=== PATIENT | female | born 1970 | race Caucasian/White ===

== ENCOUNTER 2017-07-26 15:16 | Emergency (ER) | payer SELFPAY ==
[2017-07-26 16:20] LABS: Bicarbonate 24 mEq/L (21-31); Glucose Level 94 mg/dL (65-120); Potassium 4.1 mEq/L (3.6-5.0); Sodium Level 139 mEq/L (135-145)
[2017-07-26 16:26] LABS: ALT/SGPT 96 IU/L (10-60); AST/SGOT 116 IU/L (10-42); Albumin 3.6 g/dL (3.2-5.5); Alkaline Phosphatase 68 IU/L (42-121); BUN Blood Urea Nitrogen 20 mg/dL (6-20); Bilirubin Direct 0.1 mg/dL (0-0.2); Bilirubin Total 0.6 mg/dL (0.3-1.2); Glomerular Filtration Rate 69 mL/min (=/>90); Protein, Total 6.5 g/dL (6.0-8.3)
--- NOTE | 2017-07-26 16:27 | RAD REPORT ---
EXAM DESCRIPTION: Mirian Single View07/26/2017 3:56 pm CLINICAL HISTORY: Seizure COMPARISON: 2016 FINDINGS: Mild left basilar lung opacities are present. The right lung appears clear. The heart is normal size IMPRESSION: Mild left basilar opacities may represent atelectasis or infiltrate
[2017-07-26 16:30] LABS: Alcohol Serum/Plasma < 10 mg/dl; Salicylates Level < 4.0 mg/dl (<30)
[2017-07-26 16:39] LABS: Absolute Lymphocytes (CBC) 1.1 K/uL (0.7-4.9); Absolute Monocytes 0.4 K/uL (0.1-1.3); Absolute Neutrophil 4.1 K/uL (1.8-8.0); Basophils % 0.4 % (0-1.3); Eosinophils % 2.8 % (0-4.4); Hematocrit 45.3 % (36.0-45.0); Lymphocytes % 19.3 % (15.3-44.8); MCH 35.1 pg (27.0-35.0); MCV 107.1 fL (80-100); MPV 9.7 fL (7.6-11.3); Monocytes % 7.2 % (3.3-12.3); RBC Red Blood Cell Count 4.23 M/uL (3.86-4.86)
[2017-07-26 17:00] LABS: Protime INR 0.89
[2017-07-26] MEDS ORDERED: AZITHROMYCIN 250 MG TAB ONE (17:47)
[2017-07-26] MEDS ORDERED: CEFTRIAXONE/SWI 1gm 1 GM/10 ML SYR ONE (17:48)
[2017-07-26 17:58] LABS: Blood Morphology Comment NOTED (NOT SEEN); Macrocytosis 1+; Platelet Estimate ADEQ; Polychromasia SLIGHT; Urine White Blood Cell Casts OK
--- NOTE | 2017-07-26 19:07 | ER ---
Nurse's Notes [facility] Name: Raiza Ponce Age: 46 yrs Sex: Female : 1970 Arrival Date: 07/26/2017 Time: 15:20 Bed 2 Private MD: Diagnosis: Pneumonia, unspecified organism;Pts unintentional overdose of medication - Seroquel Presentation: 07/26 15:21 Presenting complaint: EMS states: witnessed fall on the bus stop and per report pt had hj episode of seizure; pt was unresponsive for unknown time period; intiall BP was 66/51; 88% on RA; HR between 60-96; O2 sat on RB, 96%; BG- 105; arousable to painful stimuli on arrival;. Transition of care: patient was not received from another setting of care. Onset of symptoms was July 26, 2017. Care prior to arrival: None. 15:21 Method Of Arrival: Ambulatory 15:21 Acuity: PATRIZIA 3 hj Historical: - Allergies: 18:09 No Known Allergies; sv - PMHx: 16:51 Diabetes - IDDM; Endometrosis; Myocardial infarction; ss - PSHx: 16:51 Tubal ligation; heart cath; ss - Immunization history:: Adult Immunizations unknown. - Social history:: Smoking status: unknown. Screenin:51 Abuse screen: Denies threats or abuse. Denies injuries from another. Nutritional ss screening: No deficits noted. Tuberculosis screening: Never had TB. Fall Risk No fall in past 12 months (0 pts). Secondary diagnosis (15 points) generalized weakness . IV access (20 points). Ambulatory Aid- None/Bed Rest/Nurse Assist (0 pts). Gait- Normal/Bed Rest/Wheelchair (0 pts) Mental Status- Oriented to own ability (0 pts). Assessment: 15:20 General: Appears comfortable, lethargic. Behavior is calm, Pt reports she had taken ss Seroquel 20 mg tablets x 4 today. When asked if patient had taken them to hurt herself, she reported no, and that she didn't know why she took them. . Pain: Denies pain. Neuro: Level of Consciousness is obeys commands, lethargic, Oriented to person, place, time, Facial symmetry appears normal, Pupils are PERRLA. Cardiovascular: Capillary refill is sluggish in bilateral fingers. Respiratory: Airway is patent Respiratory effort is even, unlabored, shallow, Respiratory pattern is regular, symmetrical, Breath sounds are clear bilaterally. GI: Patient currently denies abdominal pain, diarrhea, nausea, vomiting. : No signs and/or symptoms were reported regarding the genitourinary system. EENT: Nares are clear Oral mucosa is moist. Throat is clear is pink. Derm: Skin is intact, is healthy with good turgor, Skin is clammy, Skin is pink, warm \T\ dry. normal, Skin temperature is cool. Musculoskeletal: Circulation, motion, and sensation intact. Capillary refill < 3 seconds, is brisk, in bilateral fingers. Range of motion: intact in all extremities, Swelling absent. 15:51 Reassessment: lab at bedside to obtain lab samples. Pt is awake and becoming ss increasingly alert. 19:00 Reassessment: RECD REPORT FROM VALERIA MCGILL. 46YO WF P/W NEAR-SYNCOPE AFTER bp RECREATIONAL OVERDOSE OF SEROQUEL. D/C ON HOLD PENDING IVF COMPLETION. PT AO4, VS STABLE ON MONITOR. 19:23 Reassessment: Patient and/or family updated on plan of care and expected duration. Pain ea level reassessed. Patient is alert, oriented x 3, equal unlabored respirations, skin warm/dry/pink. Pt refused NS bolus. 20:00 Reassessment: PT D/C HOME WITH ASSOCIATE, PT DECLINING FURTHER MEDICAL TREATMENT AND bp D/C PAPERS, LEFT FACILITY IN HOSPITAL ATTIRE. VS STABLE, AO4, NO ATAXIA OR DIZZINESS. Vital Signs: 15:20 BP 86 / 62; Pulse 87; Resp 14; Pulse Ox 95% on R/A; Pain 0/10; ss 15:51 BP 94 / 69; Pulse 79; Resp 16; Temp 97.6(TE); Pulse Ox 97% on R/A; Pain 0/10; ss 16:30 BP 103 / 74; Pulse 76; Resp 16; Pulse Ox 96% ; sv 17:00 BP 100 / 68; Pulse 74; Resp 16; Pulse Ox 96% ; sv 17:05 BP 102 / 70; Pulse 76; Resp 17; Pulse Ox 100% on R/A; bm6 17:30 BP 100 / 70; Pulse 76; Resp 18; Pulse Ox 100% ; sv 18:03 BP 101 / 74; Pulse 77; Resp 18; Pulse Ox 100% on R/A; sv 19:00 BP 120 / 81; Pulse 74; Resp 16; Pulse Ox 95% ; bp 20:00 BP 121 / 78; Pulse 70; Resp 16; Pulse Ox 98% ; bp ED Course: 15:20 Patient arrived in ED. ms 15:20 Arm band placed on right wrist. ss 15:23 Elsa Smith, [facility] is PHCP. snw 15:23 Vandana Francis MD is Attending Physician. snw 15:25 Triage completed. hj 15:51 Patient has correct armband on for positive identification. Bed in low position. Call ss light in reach. Side rails up X2. cardiac monitor on. Pulse ox on. NIBP on. 16:00 Placed in gown. Warm blanket given. mh5 16:00 Initial lab(s) drawn, by rags laborer, sent to lab. Inserted saline lock: 22 gauge in left mh5 antecubital area, using aseptic technique. 17:38 Valeria Borrego RN is Primary Nurse. sv 19:23 Primary Nurse role handed off by Valeria Borrego RN sv 20:00 No provider procedures requiring assistance completed. IV discontinued, intact, bp bleeding controlled, No redness/swelling at site. Pressure dressing applied. Administered Medications: 15:44 Drug: NS 0.9% 1000 ml Route: IV; Rate: 125 ml/hr; Site: right antecubital; ss 20:20 Follow up: IV Status: Completed infusion bp 17:38 Drug: Rocephin - (cefTRIAXone) 1 grams Route: IVPB; Infused Over: 30 mins; Site: right sv antecubital; 17:42 Follow up: Response: No adverse reaction; IV Status: Completed infusion; IV Intake: sv 10ml ; given IVP as per pharmacy requirements. 17:38 Drug: Zithromax 500 mg Route: PO; sv 18:43 Follow up: Response: No adverse reaction sv 19:15 Not Given (Patient Refused): NS 0.9% 1000 ml IV at 1 bolus Per protocol; 1000 mL bolus ea Intake: 17:42 IV: 10ml; Total: 10ml. sv Outcome: 19:05 Discharge ordered by . snw 20:21 Patient left the ED. bp Signatures: Valeria Borrego RN RN Elsa Smith FNP-C [facility] Grace Schwartz ms, Shelby, RN RN ss Dominik Villalobos, RN RN Jonny Earl [facility] Grace Ha [facility] Luba Welsh, RN RN ea Dilip Alfredo, RN RN bp
--- NOTE | 2017-07-26 19:07 | EDPHYS ---
Physician Documentation [facility] Name: Raiza Ponce Age: 46 yrs Sex: Female : 1970 Arrival Date: 07/26/2017 Time: 15:20 Bed 2 Private MD: ED Physician Vandana Francis HPI: 07/26 15:29 This 46 yrs old Female presents to ER via Ambulatory with complaints of AMS. snw 15:29 The patient presents with decreased responsiveness. Onset: The symptoms/episode snw began/occurred suddenly, just prior to arrival. Possible causes: unknown. Associated signs and symptoms: The patient has no apparent associated signs or symptoms. Patient's baseline: Neuro: orientated to person. It is unknown whether or not the patient has had similar symptoms in the past. It is unknown whether or not the patient has recently seen a physician. took unknown number of Seroquel. Historical: - Allergies: 18:09 No Known Allergies; sv - PMHx: 16:51 Diabetes - IDDM; Endometrosis; Myocardial infarction; ss - PSHx: 16:51 Tubal ligation; heart cath; ss - Immunization history:: Adult Immunizations unknown. - Social history:: Smoking status: unknown. ROS: 15:28 Constitutional: Negative for fever, chills, and weight loss, + AMS, found unresponsive snw in front of [employer] Eyes: Negative for injury, pain, redness, and discharge, ENT: Negative for injury, pain, and discharge, Neck: Negative for injury, pain, and swelling, Cardiovascular: Negative for chest pain, palpitations, and edema, Respiratory: Negative for shortness of breath, cough, wheezing, and pleuritic chest pain, Abdomen/GI: Negative for abdominal pain, nausea, vomiting, diarrhea, and constipation, Back: Negative for injury and pain, : Negative for injury, bleeding, discharge, and swelling, MS/Extremity: Negative for injury and deformity, Skin: Negative for injury, rash, and discoloration, Neuro: Negative for headache, weakness, numbness, tingling, and seizure. Exam: 15:27 Constitutional: This is a well developed, well nourished patient who is awake, alert, snw and in no acute distress. Head/Face: Normocephalic, atraumatic. Eyes: Pupils equal round and reactive to light, extra-ocular motions intact. Lids and lashes normal. Conjunctiva and sclera are non-icteric and not injected. Cornea within normal limits. Periorbital areas with no swelling, redness, or edema. ENT: Nares patent. No nasal discharge, no septal abnormalities noted. Tympanic membranes are normal and external auditory canals are clear. Oropharynx with no redness, swelling, or masses, exudates, or evidence of obstruction, uvula midline. Mucous membranes moist. Neck: Trachea midline, no thyromegaly or masses palpated, and no cervical lymphadenopathy. Supple, full range of motion without nuchal rigidity, or vertebral point tenderness. No Meningismus. Chest/axilla: Normal chest wall appearance and motion. Nontender with no deformity. No lesions are appreciated. Cardiovascular: Regular rate and rhythm with a normal S1 and S2. No gallops, murmurs, or rubs. Normal PMI, no JVD. No pulse deficits. Respiratory: Lungs have equal breath sounds bilaterally, clear to auscultation and percussion. No rales, rhonchi or wheezes noted. No increased work of breathing, no retractions or nasal flaring. Abdomen/GI: Soft, non-tender, with normal bowel sounds. No distension or tympany. No guarding or rebound. No evidence of tenderness throughout. Back: No spinal tenderness. No costovertebral tenderness. Full range of motion. Skin: Warm, dry with normal turgor. Normal color with no rashes, no lesions, and no evidence of cellulitis. MS/ Extremity: Pulses equal, no cyanosis. Neurovascular intact. Full, normal range of motion. 15:27 Neuro: Orientation: to person, Mentation: responsive to voice Memory: unable to test. 15:27 Psych: took 4 Seroquel, unknown reason. Vital Signs: 15:20 BP 86 / 62; Pulse 87; Resp 14; Pulse Ox 95% on R/A; Pain 0/10; ss 15:51 BP 94 / 69; Pulse 79; Resp 16; Temp 97.6(TE); Pulse Ox 97% on R/A; Pain 0/10; ss 16:30 BP 103 / 74; Pulse 76; Resp 16; Pulse Ox 96% ; sv 17:00 BP 100 / 68; Pulse 74; Resp 16; Pulse Ox 96% ; sv 17:05 BP 102 / 70; Pulse 76; Resp 17; Pulse Ox 100% on R/A; bm6 17:30 BP 100 / 70; Pulse 76; Resp 18; Pulse Ox 100% ; sv 18:03 BP 101 / 74; Pulse 77; Resp 18; Pulse Ox 100% on R/A; sv 19:00 BP 120 / 81; Pulse 74; Resp 16; Pulse Ox 95% ; bp 20:00 BP 121 / 78; Pulse 70; Resp 16; Pulse Ox 98% ; bp MDM: 15:30 Patient medically screened. snw 19:06 Data reviewed: vital signs, nurses notes. Data interpreted: Pulse oximetry: on room air snw is 100 %. Interpretation: normal. Counseling: I had a detailed discussion with the patient and/or guardian regarding: the historical points, exam findings, and any diagnostic results supporting the discharge/admit diagnosis, lab results, radiology results, the need for outpatient follow up, to return to the emergency department if symptoms worsen or persist or if there are any questions or concerns that arise at home. Special discussion: Based on the history and exam findings, there is no indication for further emergent testing or inpatient evaluation. I discussed with the patient/guardian the need to see the primary care provider for further evaluation of the symptoms. I discussed with the patient/guardian the need to see the psychiatrist for further evaluation of the symptoms. 07/26 15:24 Order name: Acetaminophen [facility] 07/26 15:24 Order name: BMP [facility] 07/26 15:24 Order name: CBC with Diff 07/26 15:24 Order name: Ethanol [facility] 07/26 15:24 Order name: Hepatic Function [facility] 07/26 15:24 Order name: Protime (+inr) [facility] 07/26 15:24 Order name: Ptt, Activated [facility] 07/26 15:24 Order name: Salicylate [facility] 07/26 15:24 Order name: Urine Drug Screen [facility] 07/26 16:20 Order name: Basic Metabolic Panel; Complete Time: 16:34 EDMS 07/26 16:31 Order name: Liver (Hepatic) Function; Complete Time: 16:34 EDMS 07/26 16:31 Order name: Acetaminophen Level; Complete Time: 16:34 EDMS 07/26 16:31 Order name: Alcohol Serum/Plasma; Complete Time: 16:34 EDMS 07/26 16:31 Order name: Salicylates Level; Complete Time: 16:34 EDMS 07/26 15:24 Order name: Cardiac monitoring; Complete Time: 15:45 snw 07/26 15:24 Order name: EKG; Complete Time: 15:26 snw 07/26 15:24 Order name: EKG - Nurse/Tech; Complete Time: 15:45 snw 07/26 15:24 Order name: IV Saline Lock; Complete Time: 15:28 snw 07/26 15:24 Order name: Labs collected and sent; Complete Time: 18:10 snw 07/26 15:24 Order name: O2 Per Protocol; Complete Time: 15:28 snw 07/26 15:32 Order name: Chest Single View XRAY snw 07/26 16:27 Order name: RAD; Complete Time: 16:34 EDMS 07/26 16:43 Order name: CBC with Automated Diff; Complete Time: 17:59 EDMS 07/26 17:01 Order name: Protime (+INR); Complete Time: 17:02 EDMS 07/26 17:01 Order name: PTT, Activated Partial Thromb; Complete Time: 17:02 EDMS 07/26 17:59 Order name: CBC Smear Scan; Complete Time: 17:59 EDMS 07/26 15:24 Order name: O2 Sat Monitoring; Complete Time: 15:28 snw Administered Medications: 15:44 Drug: NS 0.9% 1000 ml Route: IV; Rate: 125 ml/hr; Site: right antecubital; ss 20:20 Follow up: IV Status: Completed infusion bp 17:38 Drug: Rocephin - (cefTRIAXone) 1 grams Route: IVPB; Infused Over: 30 mins; Site: right sv antecubital; 17:42 Follow up: Response: No adverse reaction; IV Status: Completed infusion; IV Intake: sv 10ml ; given IVP as per pharmacy requirements. 17:38 Drug: Zithromax 500 mg Route: PO; sv 18:43 Follow up: Response: No adverse reaction sv 19:15 Not Given (Patient Refused): NS 0.9% 1000 ml IV at 1 bolus Per protocol; 1000 mL bolus ea Disposition: 18:01 Co-signature as Attending Physician, Vandana Francis MD. ma2 Disposition: 07/26/17 19:05 Discharged to Home. Impression: Pneumonia, unspecified organism, Pts unintentional overdose of medication - Seroquel. - Condition is Stable. - Discharge Instructions: Hypoglycemia, Pneumonia, Adult, Syncope. - Medication Reconciliation Form, Thank You Letter, Antibiotic Education, Prescription Opioid Use form. - Follow up: Private Physician; When: 2 - 3 days; Reason: Recheck today's complaints, Continuance of care, Re-evaluation by your physician. Follow up: Emergency Department; When: As needed; Reason: Worsening of condition. Signatures: Dispatcher [employer] Valeria Kirby, RN RN sv Elsa Smith, [facility] Tabitha Wilhelm RN RN ss Dilip Alfredo RN RN Vandana Hooker MD MD ma2 Luba Welsh RN, ea
[2017-07-26] MEDS ORDERED: NA CHLORIDE 0.9% 0 ML ONE (19:32)
[2017-07-26 20:39] VITALS: TEMP 97.6
[2017-07-26 20:47] VITALS: BP 121/78; O2SAT 98
--- NOTE | 2017-07-27 06:36 | EKG ---
Test Date: 2017-07-26 Test Time: 15:25:25 Rebeamer: VIANEY MEASUREMENT RESULTS: Intervals: Rate: 82 MT: 194 QRSD: 120 QT: 402 QTc: 469 [place]: P: 30 MT: 194 QRS: -50 T: 29 INTERPRETIVE STATEMENTS: Normal sinus rhythm Left axis deviation Nonspecific intraventricular conduction delay Abnormal ECG Compared to ECG 01/05/2016 00:12:33 Intraventricular conduction delay now present Myocardial infarct finding no longer present Electronically Signed On 07-27-17 06:34:48 CDT by Saurav Marquez
== END 2017-07-26 20:21 | disposition home or self-care (01) ==
LOC: ER 15:16
DX: J18.9 Pneumonia, unspecified organism (principal); T43.591A Poisoning by other antipsychotics and neuroleptics, accidental (unintentional), initial encounter; Y92.89 Other specified places as the place of occurrence of the external cause; I25.2 Old myocardial infarction
CPT/HCPCS: 36415; 71045; 80048; 80076; 80320; 80329; 85025; 85610; 85730; 93005; 96361; 96374; 99284; J0696; J7030

== ENCOUNTER 2017-08-13 09:01 | Inpatient (IN) | payer SELFPAY ==
[2017-08-13] MEDS ORDERED: PIPER/TAZO/NS 3.375gm 3.375 GM/100 ML BAG IVPB ONE (09:45)
[2017-08-13] MEDS ORDERED: MIDAZOLAM HCL 100 MG/NS 100 ML IV PRN ×2 (09:46)
[2017-08-13 09:47] LABS: Potassium 3.8 mEq/L (3.6-5.0)
--- NOTE | 2017-08-13 09:48 | EDPHYS ---
Physician Documentation [facility] Name: Raiza Whaley Age: 46 yrs Sex: Female : 1970 Arrival Date: 08/13/2017 Time: 08:58 Bed External Waiting Private MD: ED Physician Bhupinder Cortez HPI: 08/13 09:19 This 46 yrs old Female presents to ER via EMS with complaints of CPR. hiren 09:19 Preceding the arrest, the patient collapsed. The arrest occurred at home. Pre-hospital hrien course: The arrest was not witnessed by others. The patient has not experienced similar symptoms in the past. 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 - Family history:: not pertinent. - Social history:: Smoking status: unknown. ROS: 09:19 Constitutional: hiren 09:19 Unable to obtain ROS due to obtunded state. 10:18 Constitutional: Negative for fever, chills, and weight loss. hiren Exam: 09:19 Neck: Trachea midline, no thyromegaly or masses palpated, and no cervical hiren lymphadenopathy. Supple, full range of motion without nuchal rigidity, or vertebral point tenderness. No Meningismus. Back: No spinal tenderness. No costovertebral tenderness. Full range of motion. MS/ Extremity: Pulses equal, no cyanosis. Neurovascular intact. Full, normal range of motion. 09:19 Constitutional: The patient appears comatose. 09:19 Head/face: 09:19 Eyes: Pupils: constricted, bilaterally. 09:19 Chest/axilla: Exam negative for 09:19 Cardiovascular: Rate: actual rate is 0 bpm, Rhythm: asystole, Pulses: not palpable, Heart sounds: none, Edema: is not appreciated, JVD: is not appreciated. Vital Signs: 08:59 BP 0 / 0; Pulse Ox 97% ; ch 09:03 BP 102 / 68; Pulse 146; Resp 16 A; Temp 97.3(C); Pulse Ox 99% on R/A; Pain 0/10; ch 09:15 BP 111 / 73; Pulse 162; Resp 16 A; Pulse Ox 100% on ETT ambu; Weight 72.57 kg; Height 5 ch ft. 4 in. (162.56 cm); Pain 0/10; 09:23 BP 97 / 71; Pulse 112; Resp 14; Pulse Ox 100% on ETT vent; Pain 0/10; ch 10:00 BP 105 / 53; Pulse 98; Resp 16; Pulse Ox 99% on ETT vent; ch 10:35 BP 113 / 72; Pulse 112; Resp 16; Temp 96.8; Pulse Ox 100% ; ch 11:01 BP 110 / 80; Pulse 94; Resp 20; Temp 96.1(C); Pulse Ox 100% on R/A; Pain 0/10; ch 11:19 BP 101 / 87; Pulse 95; Resp 20; Temp 96.3(C); Pulse Ox 99% on ETT vent; Pain 0/10; ch 11:47 BP 96 / 67; Pulse 98; Resp 20; ch 09:15 Body Mass Index 27.46 (72.57 kg, 162.56 cm) 08:59 cpr in progress, pt being bagged ch 10:35 pt placed under bear hugger ch 11:01 pt is under bear hugger. bear hugger temp increased ch Procedures: 15:24 Central Line: the site was prepped with Betadine, in sterile fashion, a triple lumen [facility] catheter was inserted, in the right in 1 attempts. placement was verified, by blood return, the site was dressed with using sterile technique, the patient tolerated the procedure, well. 15:24 Intubation: Ventilated with 100% NRB prior to procedure. Intubated orally using # 3 hiren Daniela blade with 7.5 mm ETT. was successful on first attempt. Tube secured at right side of mouth Placement verified by CXR, CO2 detector with (+) color change, auscultating bilateral breath sounds, O2 saturation after procedure was 100 %. Patient tolerated well. MDM: 09:16 Patient medically screened. [facility] 09:23 Data reviewed: vital signs, nurses notes, lab test result(s), EKG, radiologic studies, [facility] CT scan, plain films. 08/13 09:13 Order name: Basic Metabolic Panel; Complete Time: 10:06 08/13 09:13 Order name: BNP; Complete Time: 09:59 08/13 09:13 Order name: CBC with Diff 08/13 09:13 Order name: Ckmb; Complete Time: 10:06 ch 08/13 09:13 Order name: CPK; Complete Time: 10:06 ch 08/13 09:13 Order name: LFT's; Complete Time: 10:06 ch 08/13 09:13 Order name: Magnesium; Complete Time: 10:06 ch 08/13 09:13 Order name: PT-INR; Complete Time: 11:05 ch 08/13 09:13 Order name: Ptt, Activated; Complete Time: 11:05 ch 08/13 09:13 Order name: Troponin (emerg Dept Use Only); Complete Time: 09:59 ch 08/13 09:13 Order name: Lactate 08/13 09:13 Order name: ABG; Complete Time: 10:35 ch 08/13 09:14 Order name: Lactate; Complete Time: 10:06 EDMS 08/13 09:13 Order name: XRAY Chest (1 view) 08/13 09:19 Order name: Lipase [facility] 08/13 09:19 Order name: CT Head C Spine; Complete Time: 10:35 [facility] 08/13 09:19 Order name: Lipase; Complete Time: 11:05 EDMS 08/13 09:30 Order name: Blood Culture EDSC 08/13 09:46 Order name: Urine Drug Screen; Complete Time: 10:35 hj 08/13 09:52 Order name: Urine Dipstick--Ancillary (enter results); Complete Time: 11:05 bd 08/13 09:52 Order name: Urine --Ancillary (enter results); Complete Time: 11:05 bd 08/13 10:07 Order name: Acetaminophen [facility] 08/13 10:07 Order name: ETOH Level [facility] 08/13 10:07 Order name: Salicylate [facility] 08/13 11:43 Order name: Blood Culture EDSC 08/13 11:57 Order name: Manual Differential EDSC 08/13 12:41 Order name: Hemoglobin A1C EDSC 08/13 15:20 Order name: ABG Arterial Blood Gas EDSC 08/13 09:13 Order name: Urine Test (obtain specimen); Complete Time: 09:40 ch 08/13 09:13 Order name: EKG; Complete Time: 09:14 ch 08/13 09:13 Order name: Cardiac monitoring; Complete Time: 09:26 ch 08/13 09:13 Order name: EKG - Nurse/Tech; Complete Time: 09:26 ch 08/13 09:13 Order name: IV Saline Lock; Complete Time: 09:40 ch 08/13 09:13 Order name: Labs collected and sent; Complete Time: 09:26 ch 08/13 09:13 Order name: O2 Per Protocol; Complete Time: 09:26 ch 08/13 09:13 Order name: O2 Sat Monitoring; Complete Time: 09:26 ch 08/13 09:13 Order name: Urine Dipstick-Ancillary (obtain specimen); Complete Time: 09:40 ch 08/13 09:19 Order name: [place]; Complete Time: 09:29 hiren 08/13 09:39 Order name: NG Tube; Complete Time: 09:46 hiren 08/13 10:05 Order name: CONS Physician Consult EDSC 08/13 10:35 Order name: EKG; Complete Time: 10:36 bd 08/13 09:40 Order name: Labs - recollect needed; Complete Time: 10:30 bd Administered Medications: 09:00 Drug: EPINEPHrine 0.1mg/mL 1:10,000 1 mg Route: IVP; Site: left antecubital; ch 11:54 Follow up: Response: No adverse reaction; Marked relief of symptoms ch 09:00 Drug: Sodium Bicarbonate 1 amp Route: IVP; Site: left antecubital; iw 10:30 Follow up: Response: No adverse reaction; Marked relief of symptoms ch 09:02 Drug: Sodium Bicarbonate 1 amp Route: IVP; Site: left antecubital; ch 11:53 Follow up: Response: No adverse reaction; Marked relief of symptoms ch 09:03 Drug: Calcium Chloride 1 grams Route: IVP; Site: left antecubital; ch 11:53 Follow up: Response: No adverse reaction; Marked relief of symptoms ch 09:03 Drug: Sodium Bicarbonate 1 amp Route: IVP; Site: left antecubital; ch 11:21 Follow up: Response: No adverse reaction ch 11:47 Follow up: BP 96 / 67; Pulse 98 bpm; Resp 20 bpm ch 09:10 Drug: NS 0.9% 1000 ml Route: IV; Rate: 1 bolus; Site: left antecubital; ch 11:41 Follow up: IV Status: Completed infusion; IV Intake: 1000ml ch 09:10 Drug: NS 0.9% 1000 ml Route: IV; Rate: 1 bolus; Site: left antecubital; ch 11:41 Follow up: IV Status: Completed infusion; IV Intake: 1000ml ch 09:24 Not Given (Duplicate Order): Sodium Bicarbonate 1 amp IVP once; (50 mL); equals 50 mEq iw 10:01 Drug: Rocuronium 40 mg Route: IVP; Site: right femoral; hj 10:02 Follow up: Response: No adverse reaction hj 10:15 Drug: versed 100mg in 80ml iv drip to maintain sedation 100 mg Route: IV; Rate: ch calculated rate; Site: right femoral; 11:50 Follow up: IV Status: Infusion continued upon admission ch 10:20 Drug: NS 0.9% 1000 ml Route: IV; Rate: 1 bolus; Site: right femoral; ch 11:40 Follow up: IV Status: Completed infusion; IV Intake: 1000ml ch 10:29 Drug: vancoMYCIN 1 grams Route: IVPB; Infused Over: 2 hrs; Site: left antecubital; ch 11:50 Follow up: IV Status: Infusion continued upon admission ch 10:31 Drug: Pepcid 20 mg Route: IVP; Site: left antecubital; ch 11:42 Follow up: Response: No adverse reaction; Marked relief of symptoms ch 11:10 Drug: NS 0.9% 1000 ml Route: IV; Rate: 125 ml/hr; Site: right femoral; ch 11:50 Follow up: IV Status: Infusion continued upon admission ch 11:11 Drug: NS 0.9% 1000 ml Route: IV; Rate: 1 bolus; Site: right femoral; ch 11:52 Follow up: IV Status: Completed infusion; IV Intake: 1000ml ch 11:40 Drug: Versed 3 mg Route: IVP; Site: right femoral; ch 11:52 Follow up: Response: No adverse reaction; Marked relief of symptoms ch 11:49 Drug: Versed 4 mg Route: IVP; Site: right femoral; ch 11:51 Follow up: Response: No adverse reaction; Marked relief of symptoms ch 12:20 Drug: Zosyn 3.375 grams Route: IVPB; Infused Over: 60 mins; Site: right femoral; ch 12:43 Follow up: IV Status: Infusion continued upon admission ch 12:43 Not Given (pt does not meet parameters for this medication): Levophed (4 mg/250 mL D5W ch 4 mcg/min IV at calculated rate Per protocol; (final concentration is 16 microgram/mL) Point of Care Testing: Blood Glucose: 09:08 Blood Glucose: 317 mg/dL; ch 11:51 Blood Glucose: 132 mg/dL; cc1 Ranges: Critical Glucose Levels:Adult <50 mg/dl or >400 mg/dl <40 mg/dl or >180 mg/dl Disposition: 08/13/17 09:47 Hospitalization ordered by Beny Guy for Inpatient Admission. Preliminary diagnosis are Respiratory arrest, Cardiac arrest, cause unspecified, Type 1 diabetes mellitus, Acidosis - respiratory. - Bed requested for Intensive Care Unit. - Status is Inpatient Admission. iw - Condition is Serious. - Problem is new. - Symptoms have improved. UTI on Admission? No Signatures: Dispatcher [employer] EDMS Emely Shearer Christina, ARTEM MCGILL Bhupinder Cortez MD MD cha Williams, Irene, RN RN Dominik Villalobos RN RN
--- NOTE | 2017-08-13 09:48 | ER ---
Nurse's Notes [facility] Name: Raiza Whaley Age: 46 yrs Sex: Female : 1970 Arrival Date: 08/13/2017 Time: 08:58 Bed External Waiting Private MD: Diagnosis: Respiratory arrest;Cardiac arrest, cause unspecified;Type 1 diabetes mellitus;Acidosis-respiratory Presentation: 08/13 08:59 Presenting complaint: EMS states: possible overdose on xanax. agonal respirations upon arrival, opa. has been out of it for 12 hours. RSI, unable to intubate in route. pt went pea at back door. compressions initiated in ambulance and continued inside. pt staying at [facility], friend called 911. no family known of. 08:59 Method Of Arrival: EMS: [facility] 08:59 Care prior to arrival: Medication(s) given: attemped intubation by ems x2, unsucessful. pt given narcan at 0830 by ems, and attemped rsi at 0848. pt bgl on scene was 410. Compressions began prior to arrival. 09:03 Acuity: PATRIZIA 1 09:20 Transition of care: patient was not received from another setting of care. Onset of iw symptoms was August 13, 2017. Triage Assessment: 08:59 General: Appears distressed, Behavior is unresponsive. Pain: Unable to use pain scale. hj Patient is unresponsive. EENT: No signs and/or symptoms were reported regarding the EENT system. Neuro: Level of Consciousness is unresponsive. Cardiovascular: Pulses are absent in left carotid pulse and right carotid pulse Rhythm is PEA. Respiratory: Airway via oral airway Respiratory effort is weak, Respiratory pattern is agonal Breath sounds are clear. GI: Abdomen is obese. : Urine is clear, malodorous. Musculoskeletal: No signs and/or symptoms reported regarding the musculoskeletal system. [employer]: 11:11 unknown ch Historical: - Allergies: :31 No Known Allergies; iw - PMHx: :31 Diabetes - IDDM; Endometrosis; Myocardial infarction; iw - PSHx: :31 Tubal ligation; heart cath; iw - Immunization history:: Adult Immunizations unknown. - Family history:: not pertinent. - Social history:: Smoking status: unknown. Screenin:47 Abuse screen: Denies threats or abuse. Denies injuries from another. Nutritional hj screening: No deficits noted. Tuberculosis screening: No symptoms or risk factors identified. Fall Risk None identified. Assessment: 08:59 CPR assessment: unresponsive, agonal respirations, no respiratory effort. 08:59 Cardiac rhythm is PEA. 08:59 Neuro: Level of Consciousness is unresponsive. EENT: pt has slight blood from her nose, ch nasal drainage. Cardiovascular: Capillary refill is > 3 seconds is sluggish in bilateral fingers toes Clubbing of nail beds is absent JVD is absent pt skin is pale, cool, and mottled on her face and neck. pt has no pulse at 0859 Rhythm is PEA. Respiratory: Airway via oral intubation Trachea midline Respiratory effort is pt bagged, rt reports pt is a firm bag. Breath sounds are coarse Breath sounds with crackles bilaterally. GI: Abdomen is round obese, Bowel sounds present X 4 quads. hyperactive in abdomen diffusely gas is audible in abdomen from pt bagging pt. : Lesions noted Swelling noted on labia pt has what appears to be warts on her andres labia pt is sitting in urine soaked clothes. Derm: Skin is dusky. 09:03 Cardiac rhythm is pt sinus tach at 0903, 146 bpm. compressions stopped, continuing ch resuscitative measures '. 09:10 Reassessment: pt comes in chest compression, pea. intubated at 859, chest compressions ch continued. pt has pulse at 0903. pt. 09:30 Reassessment: Patient appears in no apparent distress at this time. pt has a pulse, ch weak. pt color slightly improved with intubation. 09:37 Reassessment: Patient appears in no apparent distress at this time. pt begins to move ch her legs, and turn her head. erp notified, pt medicated per orders. 09:45 Reassessment: wheeled to CT;. 09:45 General: Appears in no apparent distress. pt transported to ct with myself, rt, and ct tech. pt tolerated ct well. . 09:55 Reassessment: Patient appears in no apparent distress at this time. Neuro: Level of Consciousness is pt is restless and moving in the bed, coughing and slightly fighting the et tube. pt moves both arms and legs. . 10:50 Reassessment: Patient appears in no apparent distress at this time. No changes from previously documented assessment. lung sounds improved slightly. 10:55 Reassessment: versed drip has been running at 4ml/hr. pt is not moving at all. versed ch drip turned off, continuing to watch pt. 11:17 Reassessment: Patient appears in no apparent distress at this time. dr morris and hydroelectric production manager have both seen pt. hydroelectric production manager requests a fourth liter of fluids for bolus and rate of 125mg. checked with dr. Cortez, pt medicated per orders. 11:39 Reassessment: Patient appears in no apparent distress at this time. pt wakes up with ch stimulation from echo being peformed. pt bolused 4mg versed per erp orders. pt stops moving. versed drip restarted. Vital Signs: 08:59 BP 0 / 0; Pulse Ox 97% ; ch 09:03 BP 102 / 68; Pulse 146; Resp 16 A; Temp 97.3(C); Pulse Ox 99% on R/A; Pain 0/10; ch 09:15 BP 111 / 73; Pulse 162; Resp 16 A; Pulse Ox 100% on ETT ambu; Weight 72.57 kg; Height 5 ch ft. 4 in. (162.56 cm); Pain 0/10; 09:23 BP 97 / 71; Pulse 112; Resp 14; Pulse Ox 100% on ETT vent; Pain 0/10; ch 10:00 BP 105 / 53; Pulse 98; Resp 16; Pulse Ox 99% on ETT vent; ch 10:35 BP 113 / 72; Pulse 112; Resp 16; Temp 96.8; Pulse Ox 100% ; ch 11:01 BP 110 / 80; Pulse 94; Resp 20; Temp 96.1(C); Pulse Ox 100% on R/A; Pain 0/10; ch 11:19 BP 101 / 87; Pulse 95; Resp 20; Temp 96.3(C); Pulse Ox 99% on ETT vent; Pain 0/10; ch 11:47 BP 96 / 67; Pulse 98; Resp 20; ch 09:15 Body Mass Index 27.46 (72.57 kg, 162.56 cm) ch 08:59 cpr in progress, pt being bagged ch 10:35 pt placed under bear hugger ch 11:01 pt is under bear hugger. bear hugger temp increased ch ED Course: 08:58 Patient arrived in ED. ch 08:59 Intubation: Ventilated with 100% bag valve mask (BVM) prior to procedure. O2 saturation ch prior to procedure was 100 %. 7.5 Fr. ETT placed orally. Cricoid pressure applied during procedure. Performed by Bhupinder Cortez MD Successful on first attempt. Placement verified by CO2 detector w/ + color change, Ventilated with Ambu bag. 08:59 Arm band placed on right wrist. hj 09:03 Triage completed. 09:05 Maintain EMS IV. Dressing intact. Good blood return noted. Site clean \T\ dry. Gauge \T\ ch site: 20 L ac. 09:05 Assisted provider with central line placement. Set up central line tray. Triple lumen ch line placed in right femoral. Line placed by Bhupinder Cortez MD Placement verified by blood return, Dressed with Tegaderm, Blood was collected. Patient tolerated well. Time-out/Briefing performed prior to start of procedure? Yes. Was handwashing/sanitizing done immediately prior to procedure? Yes. Was patient positioned to in a way to prevent air embolism? Yes. Was procedure site sterilized? Yes, with chlorhexidine. Was the site allowed to dry? Yes. Was local anesthetic and/or sedation utilized? Yes. During the procedure, did the Practitioner(s) maintain a sterile field? Yes. Were unused ports clamped during insertion? Yes. Was blood aspirated from each lumen? Yes. 09:16 Bhupinder Cortez MD is Attending Physician. [facility] 09:18 Corie Laughlin, ARTEM is Primary Nurse. 09:20 Assisted provider with intubation using 7.5 mm ETT via oral route. ET tube secured at ch 23cm at the lips. Set up intubation tray. Intubated by Bhupinder Cortez MD Placement verified by CO2 detector w/ + color change, Patient tolerated well. 09:20 Patient has correct armband on for positive identification. Placed in gown. Bed in low ch position. Call light in reach. Side rails up X2. 09:20 NGT: inserted 16 Fr. other orally verified placement of air over stomach, verified ch return of gastric contents, to intermittent suction. Returned gastric contents. pt has 600mL gastric content out. 09:23 X-ray completed. Portable x-ray completed in exam room. Patient tolerated procedure ka well. 09:25 XRAY Chest (1 view) In Process Unspecified. EDMS 09:30 OGT inserted;. hj 09:30 Patient has correct armband on for positive identification. Placed in gown. Bed in low hj position. Side rails up X2. radiation monitor on. Pulse ox on. NIBP on. Warm blanket given. 09:39 [place] cath inserted, using sterile technique, 16 Fr., by ny, balloon inflated, returned ap3 clear yellow urine. Patient tolerated well. 09:45 Lipase Sent. iw 09:45 Lactate Sent. iw 09:46 Beny Morris DO is Hospitalizing Provider. [facility] 10:00 CT completed. Patient tolerated procedure well. Patient moved to CT via stretcher. [email or web address] Patient moved back from CT. 10:01 CT Head C Spine In Process Unspecified. EDMS 10:52 EKG done, by x ray technologist. reviewed by Bhupinder Cortez MD. vh 11:19 No apparent distress. Resting quietly. ch 11:49 Blood Culture Sent. ch 12:02 Patient admitted, IV remains in place. ch Administered Medications: 09:00 Drug: EPINEPHrine 0.1mg/mL 1:10,000 1 mg Route: IVP; Site: left antecubital; ch 11:54 Follow up: Response: No adverse reaction; Marked relief of symptoms ch 09:00 Drug: Sodium Bicarbonate 1 amp Route: IVP; Site: left antecubital; iw 10:30 Follow up: Response: No adverse reaction; Marked relief of symptoms ch 09:02 Drug: Sodium Bicarbonate 1 amp Route: IVP; Site: left antecubital; ch 11:53 Follow up: Response: No adverse reaction; Marked relief of symptoms ch 09:03 Drug: Calcium Chloride 1 grams Route: IVP; Site: left antecubital; ch 11:53 Follow up: Response: No adverse reaction; Marked relief of symptoms ch 09:03 Drug: Sodium Bicarbonate 1 amp Route: IVP; Site: left antecubital; ch 11:21 Follow up: Response: No adverse reaction ch 11:47 Follow up: BP 96 / 67; Pulse 98 bpm; Resp 20 bpm ch 09:10 Drug: NS 0.9% 1000 ml Route: IV; Rate: 1 bolus; Site: left antecubital; ch 11:41 Follow up: IV Status: Completed infusion; IV Intake: 1000ml ch 09:10 Drug: NS 0.9% 1000 ml Route: IV; Rate: 1 bolus; Site: left antecubital; ch 11:41 Follow up: IV Status: Completed infusion; IV Intake: 1000ml ch 09:24 Not Given (Duplicate Order): Sodium Bicarbonate 1 amp IVP once; (50 mL); equals 50 mEq iw 10:01 Drug: Rocuronium 40 mg Route: IVP; Site: right femoral; hj 10:02 Follow up: Response: No adverse reaction hj 10:15 Drug: versed 100mg in 80ml iv drip to maintain sedation 100 mg Route: IV; Rate: ch calculated rate; Site: right femoral; 11:50 Follow up: IV Status: Infusion continued upon admission ch 10:20 Drug: NS 0.9% 1000 ml Route: IV; Rate: 1 bolus; Site: right femoral; ch 11:40 Follow up: IV Status: Completed infusion; IV Intake: 1000ml ch 10:29 Drug: vancoMYCIN 1 grams Route: IVPB; Infused Over: 2 hrs; Site: left antecubital; ch 11:50 Follow up: IV Status: Infusion continued upon admission ch 10:31 Drug: Pepcid 20 mg Route: IVP; Site: left antecubital; ch 11:42 Follow up: Response: No adverse reaction; Marked relief of symptoms ch 11:10 Drug: NS 0.9% 1000 ml Route: IV; Rate: 125 ml/hr; Site: right femoral; ch 11:50 Follow up: IV Status: Infusion continued upon admission ch 11:11 Drug: NS 0.9% 1000 ml Route: IV; Rate: 1 bolus; Site: right femoral; ch 11:52 Follow up: IV Status: Completed infusion; IV Intake: 1000ml ch 11:40 Drug: Versed 3 mg Route: IVP; Site: right femoral; ch 11:52 Follow up: Response: No adverse reaction; Marked relief of symptoms ch 11:49 Drug: Versed 4 mg Route: IVP; Site: right femoral; ch 11:51 Follow up: Response: No adverse reaction; Marked relief of symptoms ch 12:20 Drug: Zosyn 3.375 grams Route: IVPB; Infused Over: 60 mins; Site: right femoral; ch 12:43 Follow up: IV Status: Infusion continued upon admission ch 12:43 Not Given (pt does not meet parameters for this medication): Levophed (4 mg/250 mL D5W ch 4 mcg/min IV at calculated rate Per protocol; (final concentration is 16 microgram/mL) Point of Care Testing: Blood Glucose: 09:08 Blood Glucose: 317 mg/dL; ch 11:51 Blood Glucose: 132 mg/dL; cc1 Ranges: Intake: 11:40 IV: 1000ml; Total: 1000ml. ch 11:41 IV: 1000ml; Total: 2000ml. ch 11:41 IV: 1000ml; Total: 3000ml. ch 11:52 IV: 1000ml; Total: 4000ml. ch Outcome: 09:20 Outcome Resuscitation successful ch 09:20 Admitted to ICU 09:47 Decision to Hospitalize by Provider. [facility] 12:01 Attestation : I agree with student nurse charting. 12:01 Admitted to ICU accompanied by nurse, accompanied by tech, room 7, with oxygen, on monitor, with chart, Report called to giselle 12:01 critical 12:47 Patient left the ED. 15:51 Patient left the ED. iw Signatures: Dispatcher [employer] EDMS Corie aLughlin, RN Bhupinder Urban ch, MD MD cha Garcia, Jessica jg1 Williams, Irene RN ARTEM Uziel Arzate cc1 Kait Bell Henry RN RN Leela Tolliver Amanda ap3 Corrections: (The following items were deleted from the chart) 10:53 08:59 Presenting complaint: EMS states: possible overdose on benzos. agonal ch respirations upon arrival, opa. has been out of it for 12 hours. RSI, unable to intubate in route. pt went pea at back door. 11:11 09:05 Assisted provider with intubation using 7.5 mm ETT via oral route. ET tube secured at 23cm at the lips. Set up intubation tray. Intubated by Bhupinder Cortez MD Placement verified by CO2 detector w/ + color change, Patient tolerated well. ch
[2017-08-13 09:54] LABS: Albumin 3.1 g/dL (3.2-5.5); Bilirubin Direct 0.1 mg/dL (0-0.2); Bilirubin Total 0.5 mg/dL (0.3-1.2); Magnesium 2.4 mg/dL (1.8-2.5); Protein, Total 5.9 g/dL (6.0-8.3)
[2017-08-13 09:56] LABS: CKMB Creatine Kinase MB 5.5 ng/ml (0.3-4.0)
[2017-08-13] MEDS ORDERED: MIDAZOLAM HCL 2 MG/2 ML INJ ONE (10:02)
[2017-08-13] MEDS ORDERED: D50W 25 GM/50 ML SYRINGE IV PRN (10:04)
[2017-08-13] MEDS ORDERED: GLUCAGON 1 MG/VIAL IM PRN (10:04)
[2017-08-13] MEDS ORDERED: ROCURONIUM 50 MG/5 ML VIAL IV ONE (10:19)
[2017-08-13 10:26] LABS: Arterial Blood Carboxyhemoglob 2.1 % (0-1.5); Blood Gas Oxyhemoglobin 95.6 % (94-97); Blood O2 Saturation 98.7 % (92-98.5)
--- NOTE | 2017-08-13 10:30 | RAD REPORT ---
EXAM DESCRIPTION: CT - Head C Spine Mpr Wo Con - 08/13/2017 10:01 am CLINICAL HISTORY: Head and neck injury status post fall. Unresponsive. COMPARISON: None. TECHNIQUE: Computed axial tomography of the head and cervical spine was obtained. Sagittal and coronal reconstruction was performed. All CT scans are performed using dose optimization technique as appropriate and may include automated exposure control or mA/KV adjustment according to patient size. FINDINGS: An intracranial bleed is not seen. The ventricles are normal in caliber. An extra-axial fl uid collection is not noted. Mild to moderate low-density areas within periventricular, deep and subc ortical white matter are seen. Fluid within the visualized sinuses and mastoids is not seen Extensive patient motion renders evaluation of the mid cervical spine nondiagnostic. A cervical fract ure is not visualized. No dislocation is noted involving the proximal and distal cervical spine. An endotracheal tube is in place. IMPRESSION: Mild to moderate low-density areas within periventricular deep and subcortical white mat ter may be secondary to ischemic changes secondary to small vessel disease. A demyelinating process i s another consideration. Nondiagnostic evaluation of the mid cervical spine. No gross abnormality is seen involving the remain shannon of the cervical spine. If the patient continues to have symptoms to suggest intracranial /spinal pathology then MRI would b e recommended
[2017-08-13 10:32] LABS: Barbiturates NEGATIVE; Benzodiazepines POSITIVE; Cocaine NEGATIVE; METHAMPHETAM NEGATIVE; Opiates NEGATIVE; Phencyclidine NEGATIVE; THC Cannibis NEGATIVE
[2017-08-13] MEDS ORDERED: VANCOMYCIN/NS 1 gm 1 GM/250 ML BAG ONE (10:39)
[2017-08-13] MEDS ORDERED: NA CHLORIDE 0.9% 1,000 ML ONE (10:39)
[2017-08-13] MEDS ORDERED: FAMOTIDINE 20 MG/2 ML VIAL IV ONE (10:39)
[2017-08-13 10:44] LABS: Absolute Lymphocytes (CBC) 0.4 K/uL (0.7-4.9); Absolute Monocytes 0.7 K/uL (0.1-1.3); Absolute Neutrophil 9.1 K/uL (1.8-8.0); Basophils % 0.1 % (0-1.3); Eosinophils % 0.1 % (0-4.4); Hematocrit 41.1 % (36.0-45.0); Lymphocytes % 4.1 % (15.3-44.8); MCH 35.1 pg (27.0-35.0); MCV 109.4 fL (80-100); MPV 9.1 fL (7.6-11.3); Monocytes % 6.5 % (3.3-12.3); RBC Red Blood Cell Count 3.75 M/uL (3.86-4.86)
[2017-08-13 10:47] LABS: Salicylates Level < 4.0 mg/dl (<30)
[2017-08-13] MEDS ORDERED: ONDANSETRON 4 MG/2 ML VIAL IV PRN (10:48)
[2017-08-13] MEDS ORDERED: ALBUTEROL 2.5 MG/3 ML NEB SOL NEB PRN (10:48)
[2017-08-13] MEDS ORDERED: IPRATROPIUM BROM 0.5MG/2.5ML NEB PRN (10:48)
[2017-08-13] MEDS ORDERED: SODIUM CHLORIDE 0.9% 10ML INJ IV PRN (10:58)
[2017-08-13] MEDS ORDERED: NACHLORIDE 0.45% 1,000 ML IV SCH (11:00)
[2017-08-13 11:03] LABS: Urine Blood TRACE (NEG); Urine Glucose 2+ (NEG); Urine Protein TRACE (NEG); Urine Specific Gravity 1.025 (1.005-1.030); Urine pH 5.5 (5.0-7.0)
--- NOTE | 2017-08-13 11:06 | P.HP ---
Certification for Inpatient Patient admitted to: Inpatient With expected LOS: >2 Midnights Patient will require the following post-hospital care: Other Practitioner: I am a practitioner with admitting privileges, knowledge of patient current condition, hospital course, and medical plan of care. Services: Services provided to patient in accordance with Admission requirements found in Title 42 Section 412.3 of the Code of Federal Regulations Patient History Date of Service: 08/13/17 Primary Care Provider: Dr. Soares Reason for admission: Encephalopathy, CPR, Possible Benzo overdose History of Present Illness: Most of the history came from the ER physician and a friend who was available. 46-year-old female presented to emergency room after she had been at [facility]. Over the last day friend noted that she had increasing fatigue and not responding appropriately. She felt that the patient was tired. She had overheard the patient had been taking medication-Xanax 2 mg 1 pill 3 times a day. She apparently had been sharing medication with another person. There is also report by the friend that she had been using illegal drugs including synthetic marijuana in the recent past. This morning she became more lethargic and unresponsive. EMS was called. Patient wanting to respiratory distress. CPR was started and initiated. The patient was eventually intubated. Patient responded to IV fluids, epinephrine, and bicarbonate. ER reports that the patient came in tachycardic with possible atrial fibrillation. Patient now in sinus rhythm. No other history is given. Medications from the patient will reviewed. She apparently takes Xanax 2 mg 1 pill 3 times a day and Effexor 150 mg. It appears that she got a refill on her Xanax 2 days ago. She was given 90 pills. Over the last 2 days it appears that 22 pills have been used. On lab pH was 7.16 with a PC of 2 of 83. Bicarb 28. Sodium 146, potassium 3.9 , BUN of 21, creatinine 1.07. GFR 55. Glucose 322. Calcium elevated at 11.9. Lactic acid elevated at 79. AST ALT also elevated at 101 78 respectively. CK was at 3:43 a.m.. CK MB 5.5, troponin less than 0.03. BNP 207. CT scan showed mild to moderate low-density changes to the white matter likely small- vessel disease. No acute finding noted. The patient has been stabilized. Patient will be admitted to ICU for further treatment. Pulmonology, cardiology , neurology and Nephrology have been consulted. Chest x-ray pending. Previous history shows possible history of diabetes, hyperlipidemia, CAD, and anxiety disorder. Allergies No Known Allergies Allergy (Unverified 08/13/17 11:16) Home medications list reviewed: Yes Home Medications: Alprazolam [Xanax] 2 mg PO BID 06/09/13 Sulfamethoxazole/Trimethoprim [Bactrim Ds Tablet] 1 each PO BID #28 tablet 06/11 Aspirin Tab [Nicole Aspirin*] 325 mg PO DAILY #0 tab 06/12/13 Clopidogrel Bisulfate [Plavix*] 75 mg PO DAILY #30 tablet 06/12/13 Nitroglycerin [Nitrostat*] 0 mg SL UD PRN #0 btl 06/12/13 Simvastatin [Zocor*] 40 mg PO BEDTIME #0 tablet 06/12/13 - Past Medical/Surgical History Diabetic: Yes -: Anxiety disorder -: Diabetes mellitus -: CAD -: Hyperlipidemia Past Surgical History: Unable to obtain (Unable to be confirmed) -: adhesion removal -: tubal Psychosocial/ Personal History: Unable to be obtained, patient lives at [facility] - Family History Family History: Reviewed- Non-Contributory - Social History Smoking Status: Heavy Tobacco smoker (>10 cigarettes/day) (As reported by friend ) Alcohol use: Yes CD- Drugs: Yes Caffeine use: Yes Place of Residence: [facility] Review of Systems is unable to be obtained (Friend reports that she has been with increased fatigue over the last several days. She has not been acting herself. Patient also has been using Xanax. Friend also reports the possibility of synthetic marijuana use.) Physical Examination - Physical Exam General: Other (intubated and sedated. ) HEENT: Atraumatic, Normocephalic, Other (dry mucous membranes) Neck: Supple Respiratory: Crackles/rales, Expiratory wheezes Cardiovascular: Normal pulses, Regular rate/rhythm Gastrointestinal: Hypoactive, Soft and benign, Non-distended, No masses Musculoskeletal: No erythema, No tenderness, No warmth Integumentary: No tenderness/swelling, No erythema, No warmth, No cyanosis Neurological: Other (Patient intubated and sedated) Urinary: [place] catheter - Studies Laboratory Data (last 24 hrs) 08/13/17 09:09: Lipase 10 L 08/13/17 09:09: B-Natriuretic Peptide 287 H 08/13/17 09:09: Sodium 146 H, Potassium 3.8, BUN 21 H, Creatinine 1.07 H, Glucose 322 H, Magnesium 2.4 D, Total Bilirubin 0.5, AST 100 H, ALT 178 H, Alkaline Phosphatase 77 Assessment and Plan - Problems (Diagnosis) (1) Encephalopathy Current Visit: Yes Status: Acute Plan: Patient with encephalopathy. Likely multifactorial. May be medication related due to overdose of benzodiazepine. Infectious versus cardiopulmonary also likely. Will consult neurology to further assess. CT scan shows possible 's small-vessel disease. Patient may need EEG. Will monitor closely. Patient will go to the ICU. Patient intubated and sedated at this time. Will continue with IV fluid hydration. . ER reported that the patient was in atrial fibrillation. Now normal sinus rhythm. Will discuss case with pulmonology and Cardiology. Case discussed with nephrology. Will continue with aggressive IV fluid hydration. Will monitor this closely. (2) Cardiopulmonary arrest with successful resuscitation Current Visit: Yes Status: Acute Plan: Patient status post CPR. Patient currently intubated and sedated at this time. Will continue with IV fluids. Patient on IV antibiotic therapy. Await pulmonology and cardiology evaluation. (3) Atrial fibrillation Current Visit: Yes Status: Suspected Plan: ER reports atrial fibrillation. Now sinus rhythm. Will monitor this closely. Await cardiology evaluation. Will check echocardiogram. Qualifiers: Atrial fibrillation type: paroxysmal Qualified Code(s): I48.0 - Paroxysmal atrial fibrillation (4) Acute renal failure Current Visit: Yes Status: Acute Plan: Will continue with IV fluids. Nephrology consulted. Qualifiers: Acute renal failure type: unspecified Qualified Code(s): N17.9 - Acute kidney failure, unspecified (5) Respiratory failure Current Visit: Yes Status: Acute Plan: Patient likely hypoxic and with hypoventilation upon arrival. Patient now intubated at this time. Will cover for pneumonia. Await chest x-ray. Pulmonology has been consulted. Await further recommendation. Patient on IV antibiotic therapy. Patient likely has underlying COPD. Will provide medication as well. Qualifiers: Chronicity: acute (6) COPD (chronic obstructive pulmonary disease) Current Visit: Yes Status: Suspected Plan: Patient may have underlying COPD. Will discuss case with pulmonology. Await further recommendation. Will continue with COPD treatment. Qualifiers: COPD type: COPD with acute exacerbation Qualified Code(s): J44.1 - Chronic obstructive pulmonary disease with (acute) exacerbation (7) Diabetes mellitus Current Visit: Yes Status: Suspected Plan: Suspect diabetes. Will need to obtain further information. Will check A1c. Will provide sliding scale. 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 It appears the patient may have overdosed on benzodiazepine. Patient obtained refill of the Xanax 2 mg 1 pill 3 times a day 2 days ago. 22 pills have been used. (9) Overdose of benzodiazepine Current Visit: Yes Status: Acute Plan: Continue as above. Qualifiers: Encounter type: initial encounter Injury intent: undetermined intent Qualified Code(s): T42.4X4A - Poisoning by benzodiazepines, undetermined, initial encounter (10) Elevated liver function tests Current Visit: Yes Status: Acute Plan: Elevated liver function noted. Will monitor LFT and obtain hepatitis panel. (11) Dehydration Current Visit: Yes Status: Acute Plan: Will continue with IV fluids. Case discussed with nephrology. (12) Acute hypernatremia Current Visit: Yes Status: Acute Plan: Likely from hypovolemia. Will continue with IV fluids. (13) Rhabdomyolysis Current Visit: Yes Status: Suspected Plan: Patient may have mild rhabdomyolysis. Will continue with IV fluids. Will monitor CK. Qualifiers: Rhabdomyolysis type: non-traumatic Qualified Code(s): M62.82 - Rhabdomyolysis (14) Pneumonia Current Visit: Yes Status: Suspected Plan: Patient may have underlying pneumonia. Patient currently intubated and sedated at this time. Will cover with IV antibiotic therapy. Will obtain blood cultures. Await chest x-ray. Qualifiers: Pneumonia type: aspiration pneumonia Aspiration pneumonia type: unspecified Laterality: unspecified laterality Lung location: unspecified part of lung Qualified Code(s): J69.0 - Pneumonitis due to inhalation of food and vomit Discharge Plan: Home Plan to discharge in: Greater than 2 days - Advance Directives Does patient have a Living Will: No Does patient have a Durable POA for Healthcare: No - Code Status/Comfort Care Code Status Assessed: No (Not able to be assessed) Time Spent Managing Pts Care (In Minutes): 55
--- NOTE | 2017-08-13 11:24 | EKG ---
Test Date: 2017-08-13 Test Time: 10:46:21 Information Lead: MARTIN MEASUREMENT RESULTS: Intervals: Rate: 93 [place]: 198 QRSD: 146 QT: 394 QTc: 489 [place]: P: 74 [place]: 198 QRS: -49 T: 86 INTERPRETIVE STATEMENTS: Normal sinus rhythm Left bundle branch block Abnormal ECG Compared to ECG 06/22/2015 15:29:58 Left bundle-branch block now present First degree AV block no longer present Left-axis deviation no longer present Myocardial infarct finding no longer present Electronically Signed On 08-13-17 11:23:54 CDT by Saurav Marquez
[2017-08-13] MEDS: INSULIN -REGULAR HUMAN 50 UNIT/0.5 ML ML SQ SCH ×3 (11:30→21:00)
[2017-08-13] MEDS ORDERED: NA CHLORIDE 0.9% 2,000 ML ONE (11:42)
--- NOTE | 2017-08-13 11:47 | RAD REPORT ---
EXAM DESCRIPTION: RAD - Chest Single View - 08/13/2017 9:28 am CLINICAL HISTORY: Respiratory failure. COMPARISON: 07/26/2017 FINDINGS: Portable technique limits examination quality. Tip of the ET tube is above the pritesh. The lungs are grossly clear. The heart is upper limit normal in size.
[2017-08-13 11:55] LABS: Blood Morphology Comment NOTED (NOT SEEN); Macrocytosis 1+; Platelet Estimate ADEQ
[2017-08-13] MEDS: NA CHLORIDE 0.9% 1,000 ML IV SCH ×2 (12:00→21:02)
[2017-08-13 12:41] LABS: A1c Component 0.47 mg/dL; Hemoglobin A1c 5.5 % (4-6.0)
--- NOTE | 2017-08-13 13:39 | EKG ---
Test Date: 2017-08-13 Test Time: 09:12:08 Parts Runner: KURT MEASUREMENT RESULTS: Intervals: Rate: 158 [place]: QRSD: 118 QT: 300 QTc: 486 [place]: P: [place]: QRS: -54 T: 113 INTERPRETIVE STATEMENTS: Atrial fibrillation with rapid ventricular response with premature ventricular or aberrantly conducted complexes Left axis deviation Right bundle branch block Septal infarct, age undetermined Abnormal ECG Compared to ECG 08/13/2017 09:08:10 Ventricular premature complex(es) now present T-wave abnormality no longer present Possible ischemia no longer present Myocardial infarct finding still present Electronically Signed On 08-13-17 13:39:03 CDT by Saurav Marquez
--- NOTE | 2017-08-13 13:39 | EKG ---
Test Date: 2017-08-13 Test Time: 09:08:10 Supervisor Core Shop: KURT MEASUREMENT RESULTS: Intervals: Rate: 138 [place]: QRSD: 110 QT: 318 QTc: 481 [place]: P: [place]: QRS: -48 T: 105 INTERPRETIVE STATEMENTS: Atrial fibrillation with rapid ventricular response Left axis deviation Right bundle branch block Septal infarct, age undetermined T wave abnormality, consider lateral ischemia Abnormal ECG Compared to ECG 08/13/2017 09:06:39 Ventricular premature complex(es) no longer present Myocardial infarct finding still present T-wave abnormality still present Possible ischemia still present Electronically Signed On 08-13-17 13:39:18 CDT by Saurav Marquez
--- NOTE | 2017-08-13 13:40 | EKG ---
Test Date: 2017-08-13 Test Time: 09:06:39 Machine Fixer: KURT MEASUREMENT RESULTS: Intervals: Rate: 117 [place]: QRSD: 128 QT: 316 QTc: 440 [place]: P: [place]: QRS: -44 T: 101 INTERPRETIVE STATEMENTS: Atrial fibrillation with rapid ventricular response with premature ventricular or aberrantly conducted complexes Left axis deviation Right bundle branch block Septal infarct, age undetermined T wave abnormality, consider lateral ischemia Abnormal ECG Compared to ECG 06/22/2015 15:29:58 Ventricular premature complex(es) now present Right bundle-branch block now present T-wave abnormality now present Possible ischemia now present Sinus rhythm no longer present First degree AV block no longer present Myocardial infarct finding still present Electronically Signed On 08-13-17 13:39:33 CDT by Saurav Marquez
--- NOTE | 2017-08-13 13:46 | ECHO ---
HEIGHT: 5 ft 4 in WEIGHT: 159 lb 15.831 oz DATE OF STUDY: 08/13/[address]: Beny Guy DO 2-DIMENSIONAL: YES M.MODE: YES DOPPLER: YES COLOR FLOW: YES TDS: NO PORTABLE: NO DEFINITY: NO BUBBLE STUDY: NO DIAGNOSIS: CPR, ATRIAL FIBRILLATION CARDIAC HISTORY: CATHERIZATION: SURGERY: PROSTHETIC VALVE: PACEMAKER: MEASUREMENTS (cm) DIASTOLIC (NORMALS) SYSTOLIC (NORMALS) IVSd 0.9 (0.6-1.2) LA Diam 2.7 (1.9-4.0) LVEF 36% LVIDd 4.7 (3.5-5.7) LVIDs 3.9 (2.0-3.5) %FS 17% LVPWd 1.3 (0.6-1.2) Ao Diam 2.7 (2.0-3.7) 2 DIMENSIONAL ASSESSMENT: RIGHT ATRIUM: NORMAL LEFT ATRIUM: NORMAL RIGHT VENTRICLE: NORMAL LEFT VENTRICLE: NORMAL TRICUSPID VALVE: NORMAL MITRAL VALVE: NORMAL PULMONIC VALVE: NORMAL AORTIC VALVE: NORMAL PERICARDIAL EFFUSION: POSSIBLE EPICARDIAL FAT PAD AORTIC ROOT: NORMAL LEFT VENTRICULAR WALL MOTION: DOPPLER/COLOR FLOW: MILD TRICUSPID REGURGITATION. NORMAL RIGHT VENTRICULAR SYSTOLIC PRESSURE. COMMENTS: DEPRESSED LEFT VENTRICULAR EJECTION FRACTION. EPICARDIAL FAT PAD. MILD TRICUSPID REGURGITATION. TECHNOLOGIST: Anthony SKINNER
[2017-08-13 15:19] LABS: Arterial Blood Carboxyhemoglob 1.5 % (0-1.5); Blood Gas Oxyhemoglobin 91.1 % (94-97); Blood O2 Saturation 94.4 % (92-98.5)
[2017-08-13 15:24] LABS: Alcohol Serum/Plasma < 10 mg/dl
[2017-08-13] MEDS: ENOXAPARIN 40 MG/0.4 ML SQ SCH (17:03)
[2017-08-13] MEDS: PIPER/TAZO/NS 3.375gm 3.375 GM/100 ML BAG IVPB SCH (17:03)
[2017-08-13 17:21] LABS: Potassium 4.5 mEq/L (3.6-5.0)
[2017-08-13 17:51] LABS: CKMB Creatine Kinase MB 26.4 ng/ml (0.3-4.0)
[2017-08-13] MEDS ORDERED: HALOPERIDOL LACT 5 MG/ML INJ IV PRN (18:12)
[2017-08-13 18:28] LABS: UR CREAT 85.8 mg/dL; Urine Protein/Creatinine Ratio 0.22 (<0.15)
[2017-08-13] MEDS: ACETAMINOPHEN 500 MG TAB PO PRN (18:30)
--- NOTE | 2017-08-13 19:04 | CON ---
Chief Complaint: The patient came to the hospital in CPR. History Of Present Illness: Ms. Whaley lives at the [facility]. She apparently had not mov e for 12 hours, so friends checked on her and found her unresponsive, called EMS, EMS found her still with heart rhythm and a pulse but agonal respirations. They tried to intubated her but unable, brou ght her to the emergency room and on arrival to the emergency room, apparently it was pulseless but n ot most of the way in. She received epi and CPR, re-establish sinus rhythm, successfully intubated a nd now is in the ICU. Her first rhythm when she came in to have an EKG done was atrial fib. She colbert s not have a history of atrial fib before this. She has a history of depression and anxiety. Has a prescription for 2 mg Xanax pills. Had a prescription from , 30 were unaccounted for and she has a benzodiazepine screen that is positive, consistent with Xanax overdose. Her Tylenol and salicylate levels were normal. Other drug screen items are normal. The patient has been in our hospital previ ously in 2013 she was here. The patient had blood loss. She had abnormal troponins. She did not bledsoe ve any coronary intervention at that time, and she has not been seen by me or by partner. Since then cardiac catheterization was done on June 15, 2013. The coronary arteries were normal in spite of the fact that her troponins are elevated. The patient had an echocardiogram, which was done probabl y within 30 minutes of being intubated. Her ejection fraction was 36%. There is epicardial effusion versus fat pad. No evidence of pericardial tamponade. Physical Examination: General: The patient is comatose, intubated in the ICU, not moving, and she is on a Versed drip. Ap parently, there has been some purposeful movement. HEENT: Her pupils react to light. Her eyes are nonconsensual and there is no Doll's eye reflex, pos sibly it is suppressed by Versed. Lungs: Her lungs revealed equal breath sounds bilaterally. A chest x-ray reveals both lungs are equ ally inflated. There seems to be good endotracheal tube placement. No evidence of pulmonary edema, pneumonia, or mass. Heart: The heart may be mildly enlarged but it is more likely a technique issue with an anterior-pos terior projection of the chest. Laboratory Data: CAT scan of the head reveals ischemic changes that look chronic, possible demyelina ting process. Her electrocardiograms when she came in showed atrial fibrillation rapid response. Te lemetry presently shows sinus rhythm. I think we should do a 12-lead EKG. Now that her heart rate i s normal and she is not moving. There was a lot of motion artifact on those other EKGs and we can se e if there is any sign of an acute coronary syndrome but this seems to be a drug overdose that clearl y caused respiratory arrest and was a near miss. I am not sure how much neurological damage th ere is. I suspect not that much. We will support her. I do not think her atrial fib needs any part icular treatment at this time. JIM/ROQUE Voice ID: [id number] Report ID: [id number]
--- NOTE | 2017-08-13 20:19 | CON ---
Date of Consultation: 08/13/2017 Additional Consulting Physician: Beny Guy D.O. Reason For Consultation: Acidosis, electrolyte imbalance, elevated BUN and creatinine. History Of Present Illness: All the information has been obtained from the record as the patient kuldeep kilgore intubated. This is a 46-year-old female with significant past medical history of diabetes, hebert ry artery disease, hyperlipidemia, and anxiety. Apparently, the patient was in the [employer], f ound to be fatigued, weak, difficulty moving, and because her sickness got worse, EMS was called as t he patient was lethargic and unresponsive. The patient was taken by EMS to the emergency room. Upon arrival close to the ER, the patient had cardiac arrest. CPR was initiated. The patient was intuba pedro. Had resuscitation for short period, then her pulse came back in sinus rhythm. The patient was found to have possible AFib with tachycardia. The patient did not go down for long enough. Apparent ly, the patient was found to have some Effexor next to her with Xanax. Urine drug screen only positi ve for opioid. Primary workup showed elevated bicarb, elevated calcium, and severe acidosis. PH of 7.13 with hypercapnic acidosis, CO2 of 83, BUN was 21, creatinine 1.07, GFR down to 55, glucose was a dago 300. The patient was initiated on half normal. Her blood pressure started to stabilize. We bledsoe ve been consulted because of the severe acidosis and because of the hypercalcemia with elevated BUN a nd creatinine. From the record, other than the benzodiazepine and the Xanax the patient is apparentl y on Bactrim. Otherwise, no mention for any nonsteroidal, no IV contrast. Past Medical History: Include: 1.Anxiety. 2.Depression. 3.Diabetes. 4.Coronary artery disease. 5.Hyperlipidemia. Past Surgical History: Includes tubal ligation. Home Medications: Include: 1.Alprazolam. 2.Bactrim. 3.Aspirin. 4.Plavix. 5.Nitroglycerin. 6.Simvastatin. Social History: Heavy smoker, active alcohol. Denied drug abuse. Review of Systems: None obtainable. Physical Examination: Vital Signs: When I saw the patient, the patient on vent, blood pressure of 96/67, pulse of 98, afeb rile. Chest: Crackles at the base. Heart: S1 and S2, regular, tachycardic. Abdomen: Soft and nontender. Extremities: No edema. Neuro: Sign of poor perfusion with macular. Pupils contracted, but reactive, equal. Gag reflex was positive. Responds to pain stimuli. I do not see any facial droop. The patient again on vent. Laboratory Data: Sodium 146, potassium 3.8, bicarb 29, BUN 21, creatinine 1.07, GFR of 55, blood sug ar 322, calcium 11.9, lactic acid of 79, magnesium 2.4. LFT was elevated, AST 100, ALT 178. BNP 287 . Albumin 3.1. Corrected calcium of 12.7. Lipase of 10. Hemoglobin A1c 5.5. WBC 10.1, H and H 13 .2/41.1, platelets 181. INR of 1. ABG: PH of 7.16, CO2 of 83, O2 227, saturation of 97. Urinalysi s: Specific gravity of 1.025, glucose +2. Urine drug screen positive for benzo. Serology for hepat itis was negative. Medications: Current medications in the hospital: The patient was started on half normal, Zosyn, va ncomycin, sedation, insulin. Assessment And Plan: 1.Acute kidney injury, mostly secondary to prerenal, secondary to glucose diuresis, calcium diuresis . I am going to continue hydration. We will change IV fluid to normal saline. We will bolus the pa tient again with 1 L to establish better volume control and better hydration. 2.Hypercapnic respiratory failure, as by Pulmonary. 3.Acidosis, respiratory with contraction alkalosis secondary to hypercalcemia, hyperglycemia diuresi s. I am going to start the patient on aggressive hydration and we will bolus the patient with anothe r L of normal saline and we will maintain the patient on normal saline. 4.Hypercalcemia. I am going to go ahead and send for PTH, send for vitamin D 125 and 25 to evaluate if she has any milk alkali given the alkalosis that the patient has and hypercalcemia and we will fo llow up. 5.Respiratory failure, as by Pulmonary. 6.Diabetes, as by primary. Case discussed with Dr. Guy. BAUTISTA/ROQUE Voice ID: [id number] Report ID: [id number]
[2017-08-13] MEDS: FAMOTIDINE 20 MG/2 ML VIAL IV SCH (21:02)
--- NOTE | 2017-08-13 23:07 | CON ---
Reason For Consultation: Consultation called by Dr. Guy because of confusion , altered mental status, and unresponsiveness. History Of Present Illness: Ms. Whaley is a 46-year-old patient, who reportedly took an overdose of Xanax, reportedly around 20 pills in 1 day, pills were 2 mg strength. The patient was noted by a friend to become increasingly fatigued and unresponsive and she was also at some point felt to been using synthetic marijuana. As she became less responsive, the emergency medical services were contacted and she was found to be in respiratory distress and required cardiopulmonary resuscitation. She received IV fluids, epinephrine , and bicarbonate and was reportedly in possible atrial fibrillation. Once she was intubated, her earliest arterial blood gas showed a pH of 7.16, pCO2 at that time was 227.0, CO2 was 83.7. She did have an elevated lactic acid level of 79.3, glucose elevated to 322, and AST and ALT were mildly elevated, AST 100 and ALT 176. She received IV hydration and has since been intubated and in ICU. Her drug screen was positive for benzodiazepine and negative for other regularly tested illegal drugs and legal drugs. The nursing staff in ICU noted that the patient when lightly sedated does move arms and legs equally well and attempts to pull out her endotracheal tube. She did have a head CT scan along with C-spine CT scan earlier in the morning, which showed [id number] small -vessel ischemic disease. Of note, the radiologist indicated a potential of demyelinating process contributing to the findings. There was no ischemic or hemorrhagic change identified. Past Medical History: Includes diabetes mellitus, coronary artery disease, dyslipidemia, and anxiety. Medications: Xanax 2 mg twice daily, Bactrim DS 1 twice daily, aspirin 325 mg daily, Plavix 75 mg daily, Nitrostat 0.4 mg as needed, Zocor 40 mg at bedtime. Family History: Noncontributory. Past Surgical History: Tubal ligation. Allergies: NO KNOWN DRUG ALLERGIES. Review of Systems: Not possible as the patient is intubated and unable to respond at this point. Physical Examination: Vital Signs: Blood pressure is 97/74, pulse 83, respiratory rate of 10, temperature 100.8. Weight 195 pounds. Height 5 feet 7 inches. General: Ms. Whaley is resting in bed, intubated. When sedation, Versed, is lightened up, she did follow commands briefly to move both hands by squeezing and slight movements were noted even in the legs. Neurologic: Cranial nerve exam did show equal pupils and positive doll's eyes response as well as positive gag response. She did have normal tone in the arms and legs. Laboratory Studies: White blood cell count 10.1, hemoglobin 13.3, hematocrit 41.1. She does have band neutrophil count of 19 and neutrophil percentage is 89.2. Repeat arterial blood gas from around 2:46 p.m. showed pH 7.35, pCO2 of 42.9, pO2 of 76.6. Chest x-ray shows the lungs are grossly clear. Endotracheal tube above the pritesh. Echocardiogram; ejection fraction depressed at 36%, mild tricuspid regurgitation, and epicardial fat pad noted. Electrocardiogram shows normal sinus rhythm with left bundle branch block. Assessment: Ms. Whaley is a 46-year-old patient with overdose of Xanax, respiratory depression that is marked to produce significant respiratory acidosis, pH after intubation being 7.16. She does now have equal responses, although sluggish in both arms and the legs. At this point, it is not clear how well the patient will recover, but given the absence of any significant abnormalities noted on the brain CT scan and the patient's improvement in her arterial blood gas along with her responsiveness, these factors do indicate that she may recover fairly well from her episode of overdose. When she is able to extubated, she should have a brain MRI without and with contrast, in addition to an EEG to help with prognosis. Plan: The patient will be followed once she is to be extubated and EEG and MRI of brain are complete. Otherwise, we would continue supportive care including DVT prophylaxis with Lovenox 40 mg subcutaneously daily and intravenous antibiotics as appropriate. KOFFI/ROQUE Voice ID: [id number] Report ID: [id number] CAM
[2017-08-14] MEDS: PIPER/TAZO/NS 3.375gm 3.375 GM/100 ML BAG IVPB SCH ×3 (01:14→17:03)
[2017-08-14 02:16] LABS: CKMB Creatine Kinase MB 16.5 ng/ml (0.3-4.0)
[2017-08-14] MEDS: LORazepam 2 MG/ML VIAL IV PRN ×5 (03:10→23:00)
[2017-08-14] MEDS: MIDAZOLAM HCL 2 MG/2 ML INJ IV PRN ×3 (03:25→22:00)
[2017-08-14 05:12] LABS: Absolute Monocytes 0.5 K/uL (0.1-1.3); Absolute Neutrophil 4.2 K/uL (1.8-8.0); Basophils % 0.2 % (0-1.3); Eosinophils % 0.4 % (0-4.4); Hematocrit 33.9 % (36.0-45.0); Lymphocytes % 17.7 % (15.3-44.8); MCH 35.4 pg (27.0-35.0); MCV 107.4 fL (80-100); MPV 9.2 fL (7.6-11.3); RBC Red Blood Cell Count 3.16 M/uL (3.86-4.86)
[2017-08-14] MEDS: FENTANYL CITR 100 MCG/2 ML IV PRN ×4 (05:21→20:36)
[2017-08-14 06:00] LABS: CKMB Creatine Kinase MB 15.6 ng/ml (0.3-4.0)
[2017-08-14 06:30] LABS: ALT/SGPT 123 IU/L (10-60); AST/SGOT 67 IU/L (10-42); Albumin 2.7 g/dL (3.2-5.5); Alkaline Phosphatase 52 IU/L (42-121); BUN Blood Urea Nitrogen 11 mg/dL (6-20); Bicarbonate 26 mEq/L (21-31); Glomerular Filtration Rate 88 mL/min (=/>90); Glucose Level 103 mg/dL (65-120); HDL Cholesterol 26 mg/dL (29-89); LDL Cholesterol, Calculated 98 (<130); Magnesium 1.6 mg/dL (1.8-2.5); Potassium 3.2 mEq/L (3.6-5.0); Protein, Total 5.2 g/dL (6.0-8.3); Sodium Level 142 mEq/L (135-145); Thyroid Stimulating Hormone 1.53 uIU/mL (0.34-5.60)
[2017-08-14 07:00] LABS: Phosphorus < 1.0 mg/dL (2.5-4.3)
[2017-08-14] MEDS: INSULIN -REGULAR HUMAN 50 UNIT/0.5 ML ML SQ SCH ×4 (07:30→20:35)
[2017-08-14] MEDS ORDERED: POTASSIUM PHOS 30 MM in NA CHLORIDE 0.9% 500 ML IV ONE (07:34)
[2017-08-14] MEDS: FAMOTIDINE 20 MG/2 ML VIAL IV SCH ×2 (08:20→20:34)
--- NOTE | 2017-08-14 08:21 | RAD REPORT ---
EXAM DESCRIPTION: [facility] Single View08/14/2017 6:02 am CLINICAL HISTORY: Shortness of breath COMPARISON: August 13 FINDINGS: A nasogastric tube has been inserted into the stomach. An endotracheal tube has its tip w ell above the pritesh. The lungs appear clear of acute infiltrate. The heart is normal size IMPRESSION: Or A nasogastric tube has been inserted into the stomach. An endotracheal tube has its tip well above the pritesh.
--- NOTE | 2017-08-14 08:22 | P.CNS ---
Date of Consult: 08/14/17 Primary Care Provider: Dr. Soares Chief Complaint: Unresponsive on a ventilator History of Present Illness: Patient is 46 years of age was found unresponsive presume Xanax overdose history of smoking synthetic marijuana CPR was initiated patient was intubated she also developed an episode of AFib really patient is agitated unresponsive moving all her extremities since the some thick yellow sputum. Hemodynamically stable off vasopressors she is not on any sedation minimal oxygen Allergies No Known Allergies Allergy (Unverified 08/13/17 11:16) Home Medications: Unobtainable [Unobtainable] 08/13/17 - Past Medical/Surgical History Diabetic: Yes -: Anxiety disorder -: Diabetes mellitus -: CAD -: Hyperlipidemia -: adhesion removal -: tubal Psychosocial/ Personal History: Unable to be obtained, patient lives at [facility] - Social History Smoking Status: Unknown if ever smoked Alcohol use: Yes CD- Drugs: Yes Caffeine use: Yes Place of Residence: [facility] Review of Systems is unable to be obtained Physical Examination Temp Pulse Resp BP Pulse Ox 100 F 70 14 115/74 97 08/14/17 04:00 08/14/17 07:00 08/14/17 07:00 08/14/17 07:00 08/14/17 07:00 General: Unresponsive, Other Neck: Supple (Agitated) Respiratory: Clear to auscultation bilaterally Cardiovascular: No edema, Regular rate/rhythm Gastrointestinal: Normal bowel sounds, Soft and benign Laboratory Data (last 24 hrs) 08/13/17 09:09: Lipase 10 L 08/13/17 09:09: B-Natriuretic Peptide 287 H 08/13/17 09:09: Sodium 146 H, Potassium 3.8, BUN 21 H, Creatinine 1.07 H, Glucose 322 H, Magnesium 2.4 D, Total Bilirubin 0.5, AST 100 H, ALT 178 H, Alkaline Phosphatase 77 - Problems (1) Overdose of benzodiazepine Current Visit: Yes Status: Acute Plan: Patient is 46 years of age admitted with presumed overdose of benzodiazepines currently on a ventilator oxygenation satisfactory chest x-ray clear no clinical evidence of sepsis she has some electrolyte imbalance sputum cultures are pending patient is not on any vasopressors hemodynamically stable while she is more alert plan to wean off and extubate patient has a mild acrocytic anemia/ check B12 folate levels evaluate for the possibility of alcohol abuse possible use of diuretics patient's home medication list is unobtainable Qualifiers: Encounter type: initial encounter Injury intent: undetermined intent Qualified Code(s): T42.4X4A - Poisoning by benzodiazepines, undetermined, initial encounter
[2017-08-14] MEDS: THIAMINE 200 MG/2 ML INJ IVP SCH (08:42)
[2017-08-14] MEDS ORDERED: VANCOMYCIN 1.25 GM in NA CHLORIDE 0.9% 250 ML IVPB SCH (09:00)
[2017-08-14] MEDS ORDERED: PANTOPRAZOLE 40 MG INJ IVP SCH (09:00)
[2017-08-14] MEDS ORDERED: VANCOMYCIN 1 GM in NA CHLORIDE 0.9% 500 ML IVPB SCH (09:00)
--- NOTE | 2017-08-14 10:10 | EKG ---
Test Date: 2017-08-13 Test Time: 13:41:29 Bean Picker: WISAM MEASUREMENT RESULTS: Intervals: Rate: 91 MS: 180 QRSD: 122 QT: 364 QTc: 447 [place]: P: 41 MS: 180 QRS: -49 T: -23 INTERPRETIVE STATEMENTS: Normal sinus rhythm Left axis deviation Septal infarct, age undetermined Abnormal ECG Compared to ECG 08/13/2017 10:46:21 Left-axis deviation now present Myocardial infarct finding now present Left bundle-branch block no longer present Electronically Signed On 08-14-17 10:07:57 CDT by Justin Real
--- NOTE | 2017-08-14 11:19 | P.PN ---
Subjective Date of Service: 08/14/17 Primary Care Provider: Dr. Soares Chief Complaint: Unresponsive on a ventilator Subjective: Other (Patient improved. Patient follows commands. Patient still intubated) Physical Examination - Vital Signs Temperature: 100 F Blood Pressure: 110/75 Pulse: 69 Respirations: 19 Pulse Ox (%): 93 - Physical Exam General: Alert, Other (Patient intubated but follows commands) HEENT: Atraumatic Neck: Supple Respiratory: Clear to auscultation bilaterally, Normal air movement Cardiovascular: Normal pulses, Regular rate/rhythm Gastrointestinal: Normal bowel sounds, Soft and benign, Non-distended, No masses , No rebound, No guarding Musculoskeletal: No erythema, No tenderness, No warmth Integumentary: No erythema, No warmth, No cyanosis Neurological: Normal strength at 5/5 x4 extr, Normal tone - Studies Medications List Reviewed: Yes Assessment & Plan - Problems (Diagnosis) (1) Encephalopathy Onset Date: 08/14/17 Current Visit: Yes Status: Acute Plan: Patient with encephalopathy. Likely multifactorial. This all likely related to overdose of benzodiazepine. Will need to investigate if this was intentional. Patient still intubated but improved. Patient able to follow commands. Case discussed with pulmonology. Patient will try to be weaned off ventilator today. Cardiology did evaluate the patient. Patient no longer in atrial fibrillation. Echocardiogram shows ejection fraction 36%. Patient with systolic CHF. No need for medication at this time. Will continue with DVT prophylaxis. Patient appeared dehydrated. Nephrology adjusted IV fluids. Patient evaluated by neurology. Patient may require MRI once off the ventilator. Will continue with antibiotic treatment for possible aspiration pneumonia. Patient may require psychiatric evaluation if overdose was intentional. (2) Cardiopulmonary arrest with successful resuscitation Onset Date: 08/14/17 Current Visit: Yes Status: Acute Plan: Patient status post CPR. Patient still intubated but improved. Will continue with above plan of care. Will continue IV fluids. Will monitor closely and adjust once the patient is off the ventilator. (3) Atrial fibrillation Onset Date: 08/14/17 Current Visit: Yes Status: Acute Plan: Patient had episode of atrial fibrillation upon admission. Patient now normal sinus rhythm. Echocardiogram shows ejection fraction of 36%. Cardiology has evaluated patient. No intervention needed at this time. Will continue with DVT prophylaxis. Qualifiers: Atrial fibrillation type: paroxysmal Qualified Code(s): I48.0 - Paroxysmal atrial fibrillation (4) Acute renal failure Onset Date: 08/14/17 Current Visit: Yes Status: Acute Plan: Will continue with IV fluids. Nephrology has made adjustments to medication. Will continue with electrolyte replacement Qualifiers: Acute renal failure type: unspecified Qualified Code(s): N17.9 - Acute kidney failure, unspecified (5) Respiratory failure Onset Date: 08/14/17 Current Visit: Yes Status: Acute Plan: Patient with respiratory failure secondary to to hypoventilation with noted respiratory acidosis noted. This is likely from overdose of medication-Xanax. Will continue to wean off ventilator. Will monitor closely. Will monitor chest x-ray. Patient likely has underlying COPD. Will continue with medication. Qualifiers: Chronicity: acute Respiratory failure complication: hypercapnia Qualified Code(s): J96.02 - Acute respiratory failure with hypercapnia (6) COPD (chronic obstructive pulmonary disease) Onset Date: 08/14/17 Current Visit: Yes Status: Suspected Plan: Patient may have underlying COPD. Will continue with medication Qualifiers: COPD type: COPD with acute exacerbation Qualified Code(s): J44.1 - Chronic obstructive pulmonary disease with (acute) exacerbation (7) Anxiety Onset Date: 08/14/17 Current Visit: Yes Status: Chronic Plan: Patient with history of anxiety. It appears the patient may have overdosed on benzodiazepine. Patient obtained refill of the Xanax 2 mg 1 pill 3 times a day 2 days ago. 22 pills have been used. Patient will likely need psychiatric evaluation once the patient is off the ventilator. (8) Overdose of benzodiazepine Onset Date: 08/14/17 Current Visit: Yes Status: Acute Plan: Continue as above. Qualifiers: Encounter type: initial encounter Injury intent: undetermined intent Qualified Code(s): T42.4X4A - Poisoning by benzodiazepines, undetermined, initial encounter (9) Elevated liver function tests Onset Date: 08/14/17 Current Visit: Yes Status: Acute Plan: This has improved. Hepatitis panel obtained. (10) Dehydration Onset Date: 08/14/17 Current Visit: Yes Status: Acute Plan: Will continue with IV fluids. Will also continue with electrolyte replacement. Case discussed with nephrology. (11) Acute hypernatremia Onset Date: 08/14/17 Current Visit: Yes Status: Acute Plan: This has improved with IV fluids. Will monitor closely. (12) Rhabdomyolysis Onset Date: 08/14/17 Current Visit: Yes Status: Suspected Plan: Patient may have mild rhabdomyolysis. Will continue with IV fluids. Will monitor CK. Qualifiers: Rhabdomyolysis type: non-traumatic Qualified Code(s): M62.82 - Rhabdomyolysis (13) Pneumonia Onset Date: 08/14/17 Current Visit: Yes Status: Suspected Plan: Patient may have underlying pneumonia. Patient currently intubated and sedated at this time. Antibiotic therapy adjusted Qualifiers: Pneumonia type: aspiration pneumonia Aspiration pneumonia type: unspecified Laterality: unspecified laterality Lung location: unspecified part of lung Qualified Code(s): J69.0 - Pneumonitis due to inhalation of food and vomit (14) CHF (congestive heart failure) Current Visit: Yes Status: Chronic Plan: Echo shows ejection fraction 36%. Will need to monitor fluid intake. Qualifiers: Heart failure type: systolic Heart failure chronicity: chronic Qualified Code(s): I50.22 - Chronic systolic (congestive) heart failure (15) Hypokalemia Current Visit: Yes Status: Acute Plan: Will monitor and replace appropriately. Replacement protocol in place. (16) Hypophosphatemia Current Visit: Yes Status: Acute Plan: Will monitor and replace appropriately. Replacement protocol in place. (17) Hypomagnesemia Current Visit: Yes Status: Acute Plan: Will monitor and replace appropriately. Replacement protocol in place. (18) Obesity Current Visit: Yes Status: Chronic Plan: Will address lifestyle modification education once off ventilator. Qualifiers: Obesity type: due to excess calories Obesity classification: adult class 1 (BMI 30 - 34.9) Serious obesity comorbidity presence: with serious comorbidity Body mass index: BMI 31.0-31.9 Qualified Code(s): E66.09 - Other obesity due to excess calories; Z68.31 - Body mass index (BMI) 31.0-31.9, adult; Z68.31 - Body mass index (BMI) 31.0-31.9, adult Discharge Plan: Home Plan to discharge in: Greater than 2 days Time Spent Managing Pts Care (In Minutes): 55
[2017-08-14] MEDS: ENOXAPARIN 40 MG/0.4 ML SQ SCH (17:03)
[2017-08-14] MEDS: NA CHLORIDE 0.9% 1,000 ML IV SCH ×2 (18:00→20:33)
[2017-08-14] MEDS ORDERED: MAGNESIUM SULFATE 1 gm IVPB 1 GM/100 ML BAG IV ONE (18:00)
--- NOTE | 2017-08-14 18:07 | RAD REPORT ---
EXAM DESCRIPTION: US - Renal Ultrasound-Complete - 08/14/2017 6:01 pm CLINICAL HISTORY: Acute kidney injury. COMPARISON: None. FINDINGS: Both kidneys are normal in size, shape and echotexture. The right kidney measures 10.8 x 5.1 x 5.1 cm. No hydronephrosis, focal mass or perinephric fluid. Sm all nonobstructing right renal calculus suspected. The left kidney measures 10.4 x 6.1 x 5.2 cm. No hydronephrosis, focal mass or perinephric fluid. IMPRESSION: Small nonobstructing right renal calculus suspected.
[2017-08-14] MEDS ORDERED: Caclcium Chloride 10% INJ SYR IV ONE (18:49)
[2017-08-14] MEDS ORDERED: SODIUM CHL 0.9% 1000 ML BAG IV ONE (18:49)
[2017-08-14] MEDS ORDERED: EPINEPHrine 1 MG/10 ML SYR IV ONE (18:49)
[2017-08-14] MEDS ORDERED: D50W 25 GM/50 ML SYRINGE IV ONE (18:49)
[2017-08-14] MEDS ORDERED: POTASSIUM PHOS IN 0.9 % NACL 15 MMOL/250 ML BAG IV ONE (20:00)
--- NOTE | 2017-08-14 22:03 | PN ---
Date of Progress Note: 08/14/2017 Chief Complaint: Acidosis, electrolyte imbalance, elevated BUN and creatinine. Subjective: The patient remains in ICU. She cannot provide any medical history. The patient apparently was found to have severe weakness, difficulty with ambulation and EMS was called. The patient was lethargic, unresponsive. She is admitted to the ICU. She had cardiac arrest and CPR was initiated. The patient remains in ICU. She was found to have severe respiratory acidosis. PH was 7.13 with hypercapnia, pCO2 83, BUN was 21, creatinine 1.07, glucose was 300. Nephrology consultation was requested for elevated BUN and creatinine, abnormal renal function. The patient has nonoliguric urine output and BUN is 11 , creatinine 0.71; electrolytes as follows: Sodium 142, potassium 3.2, chloride 114, CO2 26, calcium 8.4, phosphorus less than 1, magnesium 1.6, CK level is elevated. Primarily, lactic acid was elevated to 79.38; test was done yesterday and electrolytes were as follows: when she came to the hospital, sodium was 146, potassium 3.8, chloride 106, CO2 29, BUN 21, creatinine 1.07, calcium 11.9, total bilirubin was 0.5, magnesium was 2.4 and phosphorus was not done. CK level was 343, albumin 3.1. BNP 287. Renal ultrasound will be ordered and results are not available of CT scan of the abdomen and pelvis. Review of Systems: Unobtainable. Physical Examination: General: The patient is intubated. Lungs: Few crackles at bases. Heart: S1, S2. Abdomen: Soft, benign. Extremities: No edema. Laboratory Data: Blood pressure 121/75, heart rate 85, respiratory rate 12 and temperature is 99.8. Impression And Plan: 1. Prerenal azotemia, nonoliguric urine output. The patient remains intubated. The patient has severe respiratory acidosis with hypercapnia. The patient currently is intubated. The patient was found to have systolic dysfunction, ejection fraction 36%, electrolyte abnormalities, hypophosphatemia , recommended replacement. 2. CK level is elevated. Continue IV fluids to prevent acute kidney injury due to rhabdomyolysis. 3. Hypomagnesemia. Hypophosphatemia. Replacement ordered. Re-evaluate electrolytes. LAUREN/ROQUE Voice ID: [id number] Report ID: [id number] MTDD
[2017-08-15] MEDS: PIPER/TAZO/NS 3.375gm 3.375 GM/100 ML BAG IVPB SCH ×2 (00:58→08:50)
[2017-08-15 03:47] LABS: HBsAG Nonreactive (Nonreactive); Hepatitis A IgM Antibody Nonreactive
[2017-08-15] MEDS: NA CHLORIDE 0.9% 1,000 ML IV SCH ×4 (04:00→21:43)
[2017-08-15] MEDS: LORazepam 2 MG/ML VIAL IV PRN (04:32)
[2017-08-15] MEDS: MIDAZOLAM HCL 2 MG/2 ML INJ IV PRN (04:32)
[2017-08-15] MEDS: FENTANYL CITR 100 MCG/2 ML IV PRN (04:33)
[2017-08-15 04:57] LABS: Absolute Lymphocytes (CBC) 1.1 K/uL (0.7-4.9); Absolute Monocytes 0.4 K/uL (0.1-1.3); Absolute Neutrophil 4.4 K/uL (1.8-8.0); Basophils % 0.4 % (0-1.3); Eosinophils % 1.2 % (0-4.4); Lymphocytes % 18.4 % (15.3-44.8); MCH 35.4 pg (27.0-35.0); MPV 9.2 fL (7.6-11.3); Monocytes % 5.9 % (3.3-12.3); RBC Red Blood Cell Count 2.97 M/uL (3.86-4.86)
[2017-08-15 05:05] LABS: MCV 107.8 fL (80-100)
[2017-08-15 05:12] LABS: ALT/SGPT 88 IU/L (10-60); AST/SGOT 55 IU/L (10-42); Albumin 2.4 g/dL (3.2-5.5); Alkaline Phosphatase 61 IU/L (42-121); BUN Blood Urea Nitrogen 6 mg/dL (6-20); Bicarbonate 27 mEq/L (21-31); Bilirubin Total 1.2 mg/dL (0.3-1.2); Glomerular Filtration Rate > 90 mL/min (=/>90); Glucose Level 98 mg/dL (65-120); Magnesium 1.6 mg/dL (1.8-2.5); Potassium 3.3 mEq/L (3.6-5.0); Protein, Total 4.8 g/dL (6.0-8.3); Sodium Level 140 mEq/L (135-145)
[2017-08-15] MEDS: INSULIN -REGULAR HUMAN 50 UNIT/0.5 ML ML SQ SCH ×4 (07:30→20:04)
[2017-08-15] MEDS ORDERED: POTASSIUM PHOS IN 0.9 % NACL 15 MMOL/250 ML BAG IV ONE (07:35)
[2017-08-15] MEDS ORDERED: MAGNESIUM SULFATE 1 gm IVPB 1 GM/100 ML BAG IV ONE (07:36)
[2017-08-15] MEDS ORDERED: KCL 20 MEQ/100 mL IVPB 20 MEQ/100 ML BAG IV SCH (08:00)
--- NOTE | 2017-08-15 08:03 | P.PN ---
Subjective Date of Service: 08/15/17 Primary Care Provider: Dr. Soares Chief Complaint: Unresponsive on a ventilator Subjective: Other (Patient still intubated but responds appropriately. Nurses reported that she desats when moving) Physical Examination - Vital Signs Temperature: 99.8 F Blood Pressure: 110/74 Pulse: 73 Respirations: 12 Pulse Ox (%): 95 - Physical Exam General: Alert, In no apparent distress, Other (Patient intubated) HEENT: Atraumatic Neck: Supple Respiratory: Clear to auscultation bilaterally, Normal air movement Cardiovascular: Normal pulses, Regular rate/rhythm Gastrointestinal: Normal bowel sounds, Soft and benign, Non-distended, No masses , No rebound, No guarding Musculoskeletal: No erythema, No tenderness, No warmth Integumentary: No erythema, No warmth, No cyanosis Neurological: Normal strength at 5/5 x4 extr, Normal tone - Studies Medications List Reviewed: Yes Assessment & Plan - Problems (Diagnosis) (1) Encephalopathy Onset Date: 08/14/17 Current Visit: Yes Status: Acute Plan: Patient with encephalopathy. Likely multifactorial. This all likely related to overdose of benzodiazepine. Will need to investigate this if intentional once the patient is extubated. Patient still intubated but improved. Case discussed with pulmonology yesterday. Patient will be weaned off ventilator. Electrolyte abnormalities still noted. Will continue with replacement. Cardiology did evaluate the patient. Patient no longer in atrial fibrillation. Echocardiogram shows ejection fraction 36%. Patient with systolic CHF. No need for medication at this time. Will continue with DVT prophylaxis. Continue with IV fluid replacement. Nephrology adjust fluids. Neurology evaluated the patient. Patient will need MRI brain once off the ventilator to further assess her encephalopathy. Patient being covered with IV antibiotic therapy for possible aspiration pneumonia. Patient may also require psychiatric evaluation once extubated. Spoke to sister yesterday. Patient has a history of abusing drugs and with history of overdose as well. I will be out of town this weekend. Dr. Erwin will cover. (2) Cardiopulmonary arrest with successful resuscitation Onset Date: 08/14/17 Current Visit: Yes Status: Acute Plan: Patient status post CPR. Patient still intubated but improved. Will continue with above plan of care. (3) Atrial fibrillation Onset Date: 08/14/17 Current Visit: Yes Status: Acute Plan: Patient had episode of atrial fibrillation upon admission. Patient now normal sinus rhythm. Echocardiogram shows ejection fraction of 36%. Cardiology has evaluated patient. No intervention needed at this time. Will continue with DVT prophylaxis. Qualifiers: Atrial fibrillation type: paroxysmal Qualified Code(s): I48.0 - Paroxysmal atrial fibrillation (4) Acute renal failure Onset Date: 08/14/17 Current Visit: Yes Status: Acute Plan: Will continue with IV fluids. Nephrology has made adjustments to medication. Will continue with electrolyte replacement Qualifiers: Acute renal failure type: unspecified Qualified Code(s): N17.9 - Acute kidney failure, unspecified (5) Respiratory failure Onset Date: 08/14/17 Current Visit: Yes Status: Acute Plan: Patient with respiratory failure secondary to hypoventilation with noted respiratory acidosis noted. This is likely from overdose of medication-Xanax. Patient be weaned off ventilator today. Patient likely has underlying COPD. Will continue with medication. Qualifiers: Chronicity: acute Respiratory failure complication: hypercapnia Qualified Code(s): J96.02 - Acute respiratory failure with hypercapnia (6) COPD (chronic obstructive pulmonary disease) Onset Date: 08/14/17 Current Visit: Yes Status: Suspected Plan: Patient may have underlying COPD. Will continue with medication Qualifiers: COPD type: COPD with acute exacerbation Qualified Code(s): J44.1 - Chronic obstructive pulmonary disease with (acute) exacerbation (7) Anxiety Onset Date: 08/14/17 Current Visit: Yes Status: Chronic Plan: Patient with history of anxiety. It appears the patient may have overdosed on benzodiazepine. Patient obtained refill of the Xanax 2 mg 1 pill 3 times a day 2 days ago. 22 pills have been used. Patient will likely need psychiatric evaluation once the patient is off the ventilator. Spoke to sister yesterday. Patient has a history of overdose with medication in the past. (8) Overdose of benzodiazepine Onset Date: 08/14/17 Current Visit: Yes Status: Acute Plan: Continue as above. Qualifiers: Encounter type: initial encounter Injury intent: undetermined intent Qualified Code(s): T42.4X4A - Poisoning by benzodiazepines, undetermined, initial encounter (9) Elevated liver function tests Onset Date: 08/14/17 Current Visit: Yes Status: Acute Plan: This has improved. Hepatitis panel obtained. (10) Dehydration Onset Date: 08/14/17 Current Visit: Yes Status: Acute Plan: Will continue with IV fluids. Will also continue with electrolyte replacement. Case discussed with nephrology. (11) Acute hypernatremia Onset Date: 08/14/17 Current Visit: Yes Status: Acute Plan: This has resolved with IV fluids. Will continue to monitor. (12) Rhabdomyolysis Onset Date: 08/14/17 Current Visit: Yes Status: Suspected Plan: Patient may have mild rhabdomyolysis. Will continue with IV fluids. Will monitor CK. Qualifiers: Rhabdomyolysis type: non-traumatic Qualified Code(s): M62.82 - Rhabdomyolysis (13) Pneumonia Onset Date: 08/14/17 Current Visit: Yes Status: Suspected Plan: Patient may have underlying pneumonia. Patient currently intubated and sedated at this time. Antibiotic therapy adjusted Qualifiers: Pneumonia type: aspiration pneumonia Aspiration pneumonia type: unspecified Laterality: unspecified laterality Lung location: unspecified part of lung Qualified Code(s): J69.0 - Pneumonitis due to inhalation of food and vomit (14) CHF (congestive heart failure) Current Visit: Yes Status: Chronic Plan: Echo shows ejection fraction 36%. Will need to monitor fluid intake. Qualifiers: Heart failure type: systolic Heart failure chronicity: chronic Qualified Code(s): I50.22 - Chronic systolic (congestive) heart failure (15) Hypokalemia Current Visit: Yes Status: Acute Plan: Will monitor and replace appropriately. Replacement protocol in place. (16) Hypophosphatemia Current Visit: Yes Status: Acute Plan: Will monitor and replace appropriately. Replacement protocol in place. (17) Hypomagnesemia Current Visit: Yes Status: Acute Plan: Will monitor and replace appropriately. Replacement protocol in place. (18) Obesity Current Visit: Yes Status: Chronic Plan: Will address lifestyle modification education once off ventilator. Qualifiers: Obesity type: due to excess calories Obesity classification: adult class 1 (BMI 30 - 34.9) Serious obesity comorbidity presence: with serious comorbidity Body mass index: BMI 31.0-31.9 Qualified Code(s): E66.09 - Other obesity due to excess calories; Z68.31 - Body mass index (BMI) 31.0-31.9, adult; Z68.31 - Body mass index (BMI) 31.0-31.9, adult Discharge Plan: Home Plan to discharge in: Greater than 2 days Time Spent Managing Pts Care (In Minutes): 55
--- NOTE | 2017-08-15 09:16 | RAD REPORT ---
EXAM DESCRIPTION: RAD - Chest Single View - 08/15/2017 7:11 am CLINICAL HISTORY: Shortness of breath. Respiratory failure. COMPARISON: 08/14/2017 FINDINGS: Portable technique limits examination quality. Tip of the ET tube is above the pritesh. Enteric tube descends in the stomach. There has been developm ent of a mild left pleural effusion and left lung base opacity which may represent atelectasis, devel oping pneumonia or aspiration. The heart is normal in size. No displaced fractures.
[2017-08-15] MEDS: THIAMINE 200 MG/2 ML INJ IVP SCH (09:42)
[2017-08-15] MEDS: FAMOTIDINE 20 MG/2 ML VIAL IV SCH (09:42)
[2017-08-15] MEDS ORDERED: VANCOMYCIN 1 GM in NA CHLORIDE 0.9% 500 ML IVPB SCH (11:00)
[2017-08-15] MEDS ORDERED: VANCOMYCIN 2.25 GM in NA CHLORIDE 0.9% 500 ML IVPB ONE (11:00)
[2017-08-15] MEDS: METHYLPREDNISOLONE 40 MG INJ IV SCH (17:10)
[2017-08-15] MEDS: ENOXAPARIN 40 MG/0.4 ML SQ SCH (17:10)
[2017-08-15] MEDS: IPRATROPIUM BROM 0.5MG/2.5ML NEB SCH (19:51)
[2017-08-15] MEDS ORDERED: IPRATROPIUM BROM 0.5MG/2.5ML NEB SCH (20:00)
[2017-08-15] MEDS: VANCOMYCIN 1.5 GM in NA CHLORIDE 0.9% 500 ML IVPB SCH (21:44)
--- NOTE | 2017-08-15 23:49 | PN ---
Date of Progress Note: 08/15/2017 Chief Complaint: Acidosis, electrolyte imbalance, elevated BUN and creatinine, prerenal azotemia. Subjective: The patient has nonoliguric urine output and she remains intubated and is in ICU. She was found to have severe respiratory acidosis with hypercapnia. She was found to have systolic dysfunction, congestive heart failure, ejection fraction diminished to 36%. She had multiple electrolyte abnormalities including hypophosphatemia, hypomagnesemia, and replacement was ordered. Blood work showed BUN 21, creatinine 1.07. Prior to admission to ICU , she was found to have hypercalcemia and this resolved with adequate hydration. Calcium level on today's panel is 7.7, phosphorus 2.0, BUN 6, creatinine 0.60, sodium 140, potassium 3.3, chloride 111, and CO2 27. The patient on arrival to the hospital was found to have a hypernatremia, sodium level was 146 and gradually improved from 146 to 140 over last 4 days. Review of Systems: Unobtainable. Objective: Lungs: Few crackles at bases. Heart: S1, S2. Abdomen: Soft. Extremities: Slight edema. Laboratory Data: CK level 743, total bilirubin is 1.2, phosphorus 2.0, calcium 7.7, albumin 2.4, total protein 4.8. Renal ultrasound showed right kidney 10.8, left kidney 10.4 cm in length. Small nonobstructing right renal calculus suspected. Impression And Plan: 1. Acute kidney injury, prerenal azotemia associated with hypernatremia, hypercalcemia. Electrolyte abnormalities gradually improving. Hypercalcemia resolved. The patient has hypoalbuminemia., monitor prealbumin level. Adjust nutrition. 2. CK level remains elevated. Continue IV fluid and replacement for the hypophosphatemia to prevent rhabdomyolysis. 3. Prior to this admission to ICU, lab work showed hypercalcemia and workup was initiated to check vitamin D level. A 25-hydroxy vitamin D level is 9.2, which indicates severe vitamin deficiency. The patient will need replacement of vitamin D deficiency. PTH level is 36. There is no evidence of hyperparathyroidism. Currently, the patient is intubated and vitamin D will be started with oral replacement . EB/MODL Voice ID: [id number] Report ID: [id number] [facility] CENTERLexie
[2017-08-16] MEDS: METHYLPREDNISOLONE 40 MG INJ IV SCH ×2 (00:05→08:56)
[2017-08-16] MEDS: IPRATROPIUM BROM 0.5MG/2.5ML NEB SCH ×4 (01:05→20:39)
[2017-08-16 05:54] LABS: Absolute Lymphocytes (CBC) 0.3 K/uL (0.7-4.9); Absolute Monocytes 0.1 K/uL (0.1-1.3); Absolute Neutrophil 7.7 K/uL (1.8-8.0); Hematocrit 35.6 % (36.0-45.0); MCH 35.3 pg (27.0-35.0); MCV 106.7 fL (80-100); MPV 9.3 fL (7.6-11.3); Monocytes % 1.3 % (3.3-12.3); RBC Red Blood Cell Count 3.34 M/uL (3.86-4.86)
[2017-08-16] MEDS: INSULIN -REGULAR HUMAN 50 UNIT/0.5 ML ML SQ SCH ×5 (05:57→21:00)
[2017-08-16 06:04] LABS: ALT/SGPT 80 IU/L (10-60); AST/SGOT 43 IU/L (10-42); Albumin 2.7 g/dL (3.2-5.5); Alkaline Phosphatase 73 IU/L (42-121); BUN Blood Urea Nitrogen 8 mg/dL (6-20); Bicarbonate 25 mEq/L (21-31); Bilirubin Total 1.4 mg/dL (0.3-1.2); CKMB Creatine Kinase MB 3.8 ng/ml (0.3-4.0); Glomerular Filtration Rate > 90 mL/min (=/>90); Glucose Level 146 mg/dL (65-120); Magnesium 1.9 mg/dL (1.8-2.5); Phosphorus 2.2 mg/dL (2.5-4.3); Potassium 3.9 mEq/L (3.6-5.0); Protein, Total 5.6 g/dL (6.0-8.3); Sodium Level 142 mEq/L (135-145)
[2017-08-16] MEDS ORDERED: POTASSIUM PHOS IN 0.9 % NACL 15 MMOL/250 ML BAG IV ONE (07:15)
[2017-08-16 07:42] LABS: Platelet Estimate ADEQ; Urine White Blood Cell Casts OK
[2017-08-16 07:43] LABS: Blood Morphology Comment NOTED (NOT SEEN); Macrocytosis 1+
[2017-08-16] MEDS: THIAMINE 200 MG/2 ML INJ IVP SCH (08:56)
[2017-08-16] MEDS: VANCOMYCIN 1.5 GM in NA CHLORIDE 0.9% 500 ML IVPB SCH (08:57)
[2017-08-16] MEDS ORDERED: DRISDOL (VITAMIN D=ERGOCALCIFEROL) 50000 UNIT CAP PO SCH (11:00)
--- NOTE | 2017-08-16 11:46 | P.PN ---
Subjective Date of Service: 08/16/17 (Hospitalist) Primary Care Provider: Dr. Soares Chief Complaint: Hypoxemia Subjective: Improving (Patient is improving doing well currently she has a history of congestive heart failure coronary artery disease denies being suicidal) Review of Systems Respiratory: Cough, Shortness of Breath Physical Examination - Vital Signs Temperature: 98.7 F Blood Pressure: 118/66 Pulse: 65 Respirations: 12 Pulse Ox (%): 91 - Physical Exam General: Alert, Oriented x2 Respiratory: Expiratory wheezes Cardiovascular: No edema, Normal pulses - Studies Medications List Reviewed: Yes Assessment & Plan - Problems (Diagnosis) (1) Overdose of benzodiazepine Onset Date: 08/14/17 Current Visit: Yes Status: Resolved Plan: Patient is 46 years of age admitted with presumed overdose of benzodiazepines currently on a ventilator oxygenation satisfactory chest x-ray clear no clinical evidence of sepsis she has some electrolyte imbalance sputum cultures are pending patient is not on any vasopressors hemodynamically stable while she is more alert plan to wean off and extubate patient has a mild acrocytic anemia/ check B12 folate levels evaluate for the possibility of alcohol abuse possible use of diuretics patient's home medication list is unobtainable Qualifiers: Encounter type: initial encounter Injury intent: undetermined intent Qualified Code(s): T42.4X4A - Poisoning by benzodiazepines, undetermined, initial encounter (2) Hypoxemia Current Visit: Yes Status: Acute Plan: Patient is an active smoker continue with bronchodilators change to p.o. prednisone Mr HARPER isolated in the sputum change to p.o. Bactrim continue with bronchodilators history of congestive heart failure Dc IV fluids on enter room- air saturation satisfactory she was not taking any diuretics at home transfer to the floor possible discharge in 2 days
--- NOTE | 2017-08-16 11:49 | RAD REPORT ---
EXAM DESCRIPTION: CT - Stone Protocol - 08/16/2017 10:39 am CLINICAL HISTORY: Flank pain. COMPARISON: 08/14/2017 sonography. TECHNIQUE: Axial images were obtained without oral or IV contrast. Lack of contrast limits solid org an and vascular assessment. The [id number] spans the entirety of the system partially obscuring uppermost abdomen and lung bases. Coronal reformatted images were obtained and reviewed. All CT scans are performed using dose optimization technique as appropriate and may include automated exposure control or mA/KV adjustment according to patient size. FINDINGS: Airspace opacities are seen in both posterior lung bases likely atelectasis or infiltrate/ pneumonia. Imaged portions of the liver and spleen show no suspicious findings on non-contrast imaging. The panc reas and adrenal glands are normal. No pathologic lymphadenopathy in the abdomen or pelvis. No urinary tract stones or obstructive uropathy. Several hyperdense renal lesions are present bilater ally favored to represent hyperdense cysts. No bowel obstruction, free air, free fluid or abscess. Normal appendix noted. No significant bony abnormality. IMPRESSION: No urinary tract stones or obstructive uropathy. The suspected stone seen on recent sonography is likely related rather to end hyperdense cyst resulti ng in echogenicity on sonography. Airspace opacities in both posterior lung bases likely representing pneumonia or atelectasis.
[2017-08-16] MEDS: SMZ./TMP. 800/160 MG TABLET PO SCH ×2 (12:42→21:51)
[2017-08-16] MEDS: predniSONE 20 MG TAB PO SCH ×2 (12:45→21:51)
--- NOTE | 2017-08-16 15:04 | PN ---
Date of Progress Note: 08/16/2017 Chief Complaint: Prerenal azotemia, elevated BUN, creatinine, hypophosphatemia , hypomagnesemia. Subjective: The patient has nonoliguric urine output. She was intubated and was treated in ICU. She was found to have severe respiratory acidosis and hypercapnia. Today, the patient remains in ICU. She is extubated and she is conversant. She was found to have systolic dysfunction, congestive heart failure, ejection fraction diminished to 36%. She was found to have hypophosphatemia; phosphorus level was 2.0. BUN improved to 6 and creatinine 0.60. The patient received replacement for hypophosphatemia. Currently, she is awaiting speech therapy to evaluate swallow test before she can resume p.o. intake. Review of Systems: The patient denies complaints. Denies pain, nausea, vomiting. Physical Examination: Lungs: Clear to auscultation bilaterally. Heart: S1, S2. Abdomen: Soft, benign. Extremities: No edema. Laboratory Data: Hemoglobin 11.8, WBC 8.2, platelet count 130,000, sodium 132, potassium 3.9, chloride 111, CO2 25, BUN 8, creatinine 0.61, magnesium 1.9, phosphorus 2.2. Impression And Plan: 1. Acute kidney injury with prerenal azotemia. Creatinine improved from 1.07 to 0.61. BUN was 21 and currently is 8.0. The patient had ultrasound done and there is no obstructive uropathy. There is small nonobstructing right renal calculus suspected. Plan is to check CT scan renal stone protocol to rule out obstructing kidney stone. 2. Hypophosphatemia improving with replacement. Plan is to initiate diet. Recommend dietary consultation. 3. Systolic dysfunction, congestive heart failure. Currently compensated. Continue low-sodium diet. EB/MODL Voice ID: [id number] Report ID: [id number] [facility]
[2017-08-16] MEDS: ENOXAPARIN 40 MG/0.4 ML SQ SCH (18:10)
[2017-08-17] MEDS: IPRATROPIUM BROM 0.5MG/2.5ML NEB SCH ×2 (01:37→07:38)
[2017-08-17 06:12] LABS: ALT/SGPT 71 IU/L (10-60); AST/SGOT 33 IU/L (10-42); Albumin 2.8 g/dL (3.2-5.5); Alkaline Phosphatase 72 IU/L (42-121); BUN Blood Urea Nitrogen 11 mg/dL (6-20); Bicarbonate 28 mEq/L (21-31); Bilirubin Total 0.6 mg/dL (0.3-1.2); Glomerular Filtration Rate > 90 mL/min (=/>90); Glucose Level 177 mg/dL (65-120); Magnesium 2.3 mg/dL (1.8-2.5); Phosphorus 2.1 mg/dL (2.5-4.3); Potassium 3.8 mEq/L (3.6-5.0); Protein, Total 5.7 g/dL (6.0-8.3); Sodium Level 145 mEq/L (135-145)
[2017-08-17] MEDS ORDERED: POTASSIUM PHOS IN 0.9 % NACL 15 MMOL/250 ML BAG IV ONE (06:31)
[2017-08-17] MEDS: INSULIN -REGULAR HUMAN 50 UNIT/0.5 ML ML SQ SCH ×4 (07:30→21:00)
[2017-08-17 08:46] VITALS: O2SAT 93
[2017-08-17] MEDS: SMZ./TMP. 800/160 MG TABLET PO SCH ×2 (09:44→21:33)
[2017-08-17] MEDS: predniSONE 20 MG TAB PO SCH ×2 (09:44→21:33)
[2017-08-17] MEDS ORDERED: IPRATROPIUM BROM 0.5MG/2.5ML NEB PRN (09:56)
--- NOTE | 2017-08-17 09:58 | P.PN ---
Subjective Date of Service: 08/17/17 (Hospitalist) Primary Care Provider: Dr. Soares Chief Complaint: Congestive heart failure possible COPD Subjective: Improving (Patient is improving she does take Xanax at home every day she denies taking an overdose someone may have taken her Xanax patient has history of congestive heart failure) Patient is doing better shortness of breath is better wants to go downstairs and smoke he denies taking an overdose of Xanax she has been taking it for long time history of congestive heart failure smokes heavily at home Review of Systems Unremarkable Respiratory: Shortness of Breath Physical Examination - Vital Signs Temperature: 96.6 F Blood Pressure: 127/63 Pulse: 69 Respirations: 20 Pulse Ox (%): 92 - Physical Exam General: Alert, Oriented x3 HEENT: Atraumatic Neck: Supple Respiratory: Clear to auscultation bilaterally Cardiovascular: No edema, Regular rate/rhythm, Normal S1 S2 Gastrointestinal: Normal bowel sounds, Soft and benign - Studies Medications List Reviewed: Yes Assessment & Plan - Problems (Diagnosis) (1) CHF (congestive heart failure) Current Visit: Yes Status: Chronic Plan: Patient has a history of congestive heart failure with echo is abnormal a started her on lisinopril and Lasix the does take Xanax at II mg 3 times a day in addition to Plavix and statin probably has underlying COPD for prescribed her inhaler. Patient is still hypoxic continue to monitor possible discharge tomorrow may need to be setup with home oxygen need outpatient pulmonary function testing Mr HARPER isolated in the sputum continue with Bactrim Qualifiers: Heart failure type: systolic Heart failure chronicity: chronic Qualified Code(s): I50.22 - Chronic systolic (congestive) heart failure Plan to discharge in: 24 Hours
[2017-08-17 10:18] VITALS: BMI 29.9
[2017-08-17] MEDS: FUROSEMIDE 20 MG TABLET PO SCH (10:28)
[2017-08-17] MEDS: LISINOPRIL 5 MG TAB PO SCH (10:28)
[2017-08-17] MEDS: DULERA 200/5 (MOMETASONE/FORMOTEROL) INHALER IH SCH ×2 (10:28→21:34)
[2017-08-17] MEDS: NICOTINE 14 MG/PAT TD SCH (10:28)
[2017-08-17] MEDS: ACETAMINOPHEN 500 MG TAB PO PRN (12:33)
[2017-08-17] MEDS: ENOXAPARIN 40 MG/0.4 ML SQ SCH (16:52)
[2017-08-17 20:40] LABS: Vitamin D 1,25-Dihydroxy Total 23 pg/mL (18-72); Vitamin D,1,25-OH2, D2 <8 pg/mL
[2017-08-17] MEDS: ALPRAZOLAM 1 MG TABLET PO PRN (21:33)
[2017-08-18 05:28] LABS: BUN Blood Urea Nitrogen 13 mg/dL (6-20); Bicarbonate 30 mEq/L (21-31); Glomerular Filtration Rate > 90 mL/min (=/>90); Glucose Level 192 mg/dL (65-120); Phosphorus 2.6 mg/dL (2.5-4.3); Potassium 4.1 mEq/L (3.6-5.0); Sodium Level 144 mEq/L (135-145)
[2017-08-18] MEDS: ALPRAZOLAM 1 MG TABLET PO PRN (06:17)
[2017-08-18] MEDS: INSULIN -REGULAR HUMAN 50 UNIT/0.5 ML ML SQ SCH (07:30)
[2017-08-18 08:25] VITALS: BP 109/67; TEMP 98.5
[2017-08-18] MEDS: predniSONE 20 MG TAB PO SCH (09:20)
[2017-08-18] MEDS: NICOTINE 14 MG/PAT TD SCH (09:20)
[2017-08-18] MEDS: LISINOPRIL 5 MG TAB PO SCH (09:21)
[2017-08-18] MEDS: SMZ./TMP. 800/160 MG TABLET PO SCH (09:21)
[2017-08-18] MEDS: FUROSEMIDE 20 MG TABLET PO SCH (09:22)
[2017-08-18] MEDS: DULERA 200/5 (MOMETASONE/FORMOTEROL) INHALER IH SCH (09:25)
--- NOTE | 2017-08-18 10:58 | P.DS ---
Admission Date: 08/13/17 Discharge Date: 08/18/17 Primary Care Provider: Dr. Soares Disposition: AMA-LEFT AGAINST MEDICAL ADVIC Discharge Condition: GOOD Reason for Admission: Congestive heart failure possible COPD Consultations: Pulmonology-Dr. Erwin Nephrology-Dr. Crawford Cardiology-Dr. Marquez Neurology-Dr. Gonzalez - Problems (1) Encephalopathy Onset Date: 08/14/17 Status: Acute (2) Cardiopulmonary arrest with successful resuscitation Onset Date: 08/14/17 Status: Acute (3) Atrial fibrillation Onset Date: 08/14/17 Status: Acute Qualifiers: Atrial fibrillation type: paroxysmal Qualified Code(s): I48.0 - Paroxysmal atrial fibrillation (4) Acute renal failure Onset Date: 08/14/17 Status: Acute Qualifiers: Acute renal failure type: unspecified Qualified Code(s): N17.9 - Acute kidney failure, unspecified (5) Respiratory failure Onset Date: 08/14/17 Status: Acute Qualifiers: Chronicity: acute Respiratory failure complication: hypercapnia Qualified Code(s): J96.02 - Acute respiratory failure with hypercapnia (6) COPD (chronic obstructive pulmonary disease) Onset Date: 08/14/17 Status: Acute Qualifiers: COPD type: COPD with acute exacerbation Qualified Code(s): J44.1 - Chronic obstructive pulmonary disease with (acute) exacerbation (7) Anxiety Onset Date: 08/14/17 Status: Chronic (8) Overdose of benzodiazepine Onset Date: 08/14/17 Status: Resolved Qualifiers: Encounter type: initial encounter Injury intent: undetermined intent Qualified Code(s): T42.4X4A - Poisoning by benzodiazepines, undetermined, initial encounter (9) Elevated liver function tests Onset Date: 08/14/17 Status: Acute (10) Dehydration Onset Date: 08/14/17 Status: Acute (11) Acute hypernatremia Onset Date: 08/14/17 Status: Acute (12) Rhabdomyolysis Onset Date: 08/14/17 Status: Suspected Qualifiers: Rhabdomyolysis type: non-traumatic Qualified Code(s): M62.82 - Rhabdomyolysis (13) Pneumonia Onset Date: 08/14/17 Status: Suspected Qualifiers: Pneumonia type: aspiration pneumonia Aspiration pneumonia type: unspecified Laterality: unspecified laterality Lung location: unspecified part of lung Qualified Code(s): J69.0 - Pneumonitis due to inhalation of food and vomit (14) CHF (congestive heart failure) Status: Chronic Qualifiers: Heart failure type: systolic Heart failure chronicity: chronic Qualified Code(s): I50.22 - Chronic systolic (congestive) heart failure (15) Hypokalemia Status: Acute (16) Hypophosphatemia Status: Acute (17) Hypomagnesemia Status: Acute (18) Obesity Status: Chronic Qualifiers: Obesity type: due to excess calories Obesity classification: adult class 1 (BMI 30 - 34.9) Serious obesity comorbidity presence: with serious comorbidity Body mass index: BMI 31.0-31.9 Qualified Code(s): E66.09 - Other obesity due to excess calories; Z68.31 - Body mass index (BMI) 31.0-31.9, adult; Z68.31 - Body mass index (BMI) 31.0-31.9, adult (19) Renal calculus Status: Chronic Brief History of Present Illness: Most of the history came from the ER physician and a friend who was available. 46-year-old female presented to emergency room after she had been at the [facility]. Over the last day friend noted that she had increasing fatigue and not responding appropriately. She felt that the patient was tired. She had overheard the patient had been taking medication-Xanax 2 mg 1 pill 3 times a day. She apparently had been sharing medication with another person. There is also report by the friend that she had been using illegal drugs including synthetic marijuana in the recent past. This morning she became more lethargic and unresponsive. EMS was called. Patient wanting to respiratory distress. CPR was started and initiated. The patient was eventually intubated. Patient responded to IV fluids, epinephrine, and bicarbonate. ER reports that the patient came in tachycardic with possible atrial fibrillation. Patient now in sinus rhythm. No other history is given. Medications from the patient will reviewed. She apparently takes Xanax 2 mg 1 pill 3 times a day and Effexor 150 mg. It appears that she got a refill on her Xanax 2 days ago. She was given 90 pills. Over the last 2 days it appears that 22 pills have been used. On lab pH was 7.16 with a PC of 2 of 83. Bicarb 28. Sodium 146, potassium 3.9 , BUN of 21, creatinine 1.07. GFR 55. Glucose 322. Calcium elevated at 11.9. Lactic acid elevated at 79. AST ALT also elevated at 101 78 respectively. CK was at 3:43 a.m.. CK MB 5.5, troponin less than 0.03. BNP 207. CT scan showed mild to moderate low-density changes to the white matter likely small- vessel disease. No acute finding noted. The patient has been stabilized. Patient will be admitted to ICU for further treatment. Pulmonology, cardiology , neurology and Nephrology have been consulted. Chest x-ray pending. Previous history shows possible history of diabetes, hyperlipidemia, CAD, and anxiety disorder. Hospital Course: During her stay the patient was intubated due to respiratory failure and after CPR. Patient did have an episode of atrial fibrillation which resolved. The patient was seen and evaluated by multiple specialists including pulmonology, cardiology, nephrology and neurology. During her stay she was eventually extubated. Patient's encephalopathy likely related to overdose of benzodiazepine. Patient reported that this was not intentional. The patient's condition improved. She did not require any oxygen at discharge. Patient was found to have multiple issues including CHF. Ejection fractions was 36%. At discharge, she will continue with a 1500 cc per day fluid restriction and low- salt diet. At discharge she will continue with Lasix 40 mg daily. She is to monitor her weight daily. If her weight increases by more than 5 lb she is to contact her PCP for further recommendation. At discharge she will continue with aspirin 81 mg daily and Plavix 75 mg daily. Patient respiratory failure likely was compromised with underlying COPD. Patient had COPD exacerbation. At discharge she did not require any oxygen. At discharge she will continue with prednisone 5 mg 1 pill twice daily for 5 days then 1 pill once daily for 5 days. She will continue with Dulera 100 mg 2 puffs twice daily and Pro air 2 puffs 3 times a day as needed for shortness of breath. Recommendation is the patient follow up with pulmonology in 1-2 weeks to follow up hospitalization and continue her care. Patient found to have underlying positive sputum cultures for methicillin- resistant Staph aureus. At discharge she will continue with Bactrim DS 1 pill twice daily for 7 days. She will use Bactroban ointment place to her nares and umbilicus. This can be further addressed by her PCP. Patient's respiratory failure likely from over medication of Xanax. Patient takes 2 mg 1 pill 3 times a day. She apparently has been taking this for many years. Recommendation is for her PCP to wean her off of this medication. She understands this. Patient will need to be further evaluated for underlying anxiety possibly bipolar disorder. Patient would benefit on other medication other then Xanax. Recommendation is for the patient follow up with psychiatry as an outpatient to further evaluate and treat. Patient did have an episode of atrial fibrillation. This resolved. No intervention needed. Patient will continue with aspirin 81 mg daily. Patient has underlying CAD. She will continue with aspirin 81 mg daily and Plavix 75 mg daily. Patient was found to have nonobstructing renal calculi. This can be further evaluate as an outpatient with Urology. Son reports that she gets assistance through patient assistance to get her medications. This will need to be continued. Vital Signs/Physical Exam: Temp Pulse Resp BP Pulse Ox 98.5 F 73 16 109/67 89 L 08/18/17 08:00 08/18/17 09:22 08/18/17 08:00 08/18/17 09:22 08/18/17 08:00 General: Alert, In no apparent distress, Oriented x3, Cooperative HEENT: Atraumatic Neck: Supple Respiratory: Clear to auscultation bilaterally, Normal air movement Cardiovascular: Normal pulses, Regular rate/rhythm Gastrointestinal: Normal bowel sounds, Soft and benign, Non-distended, No tenderness, No masses, No rebound, No guarding Musculoskeletal: No erythema, No tenderness, No warmth Integumentary: No tenderness/swelling, No erythema, No warmth, No cyanosis Neurological: Normal speech, Normal strength at 5/5 x4 extr, Normal tone, Abnormal affect (Increased anxiety) Laboratory Data at Discharge: WBC 8.2 K/uL (4.3-10.9) D 08/16/17 05:15 Hgb 11.8 g/dL (12.0-15.0) L 08/16/17 05:15 Hct 35.6 % (36.0-45.0) L 08/16/17 05:15 Plt Count 130 K/uL (152-406) L 08/16/17 05:15 PT 11.8 SECONDS (9.5-12.5) 08/13/17 10:10 INR 1.00 08/13/17 10:10 APTT 19.0 SECONDS (24.3-36.9) L 08/13/17 10:10 Sodium 144 mEq/L (135-145) 08/18/17 04:32 Potassium 4.1 mEq/L (3.6-5.0) 08/18/17 04:32 BUN 13 mg/dL (6-20) 08/18/17 04:32 Creatinine 0.64 mg/dL (0.44-1.00) 08/18/17 04:32 Glucose 192 mg/dL (65-120) H 08/18/17 04:32 Phosphorus 2.6 mg/dL (2.5-4.3) 08/18/17 04:32 Magnesium 2.3 mg/dL (1.8-2.5) 08/17/17 05:30 Total Bilirubin 0.6 mg/dL (0.3-1.2) 08/17/17 05:30 AST 33 IU/L (10-42) 08/17/17 05:30 ALT 71 IU/L (10-60) H 08/17/17 05:30 Alkaline Phosphatase 72 IU/L (42-121) 08/17/17 05:30 Troponin I 0.64 ng/mL (<0.03) H* 08/14/17 04:22 B-Natriuretic Peptide 287 pg/ml (<=100) H 08/13/17 09:09 Triglycerides 173 mg/dL (35-160) H 08/14/17 04:22 Cholesterol 159 mg/dL (<200) 08/14/17 04:22 HDL Cholesterol 26 mg/dL (29-89) L 08/14/17 04:22 Cholesterol/HDL Ratio 6.12 08/14/17 04:22 Lipase 10 U/L (22-51) L 08/13/17 09:09 Home Medications: Alprazolam [Xanax] 2 mg PO TID 08/14/17 Albuterol Sulfate [Proair Hfa] 8.5 gm IH TID PRN #1 hfa.aer.ad 08/18/17 Aspirin [Aspirin EC 81 MG] 81 mg PO DAILY #90 tablet. 08/18/17 Clopidogrel Bisulfate [Plavix] 75 mg PO DAILY #30 tablet 08/18/17 Furosemide [Lasix] 40 mg PO DAILY #30 tab 08/18/17 Mometasone/Formoterol [Dulera 100 Mcg/5 Mcg Inhaler] 13 gm IH BID #1 hfa.aer.ad 08/18/17 Mupirocin Oint [Bactroban 2% Ointment] 8 appl TOP BID #1 tube 08/18/17 Prednisone [Deltasone] 5 mg PO SEECOM #15 tab 08/18/17 Sulfamethoxazole/Trimethoprim [Bactrim Ds Tablet] 1 each PO BID #14 tablet 08/18 New Medications: Albuterol Sulfate [Proair Hfa] 8.5 gm IH TID PRN #1 hfa.aer.ad PRN Reason: Shortness Of Breath Aspirin [Aspirin EC 81 MG] 81 mg PO DAILY #90 tablet. Clopidogrel Bisulfate [Plavix] 75 mg PO DAILY #30 tablet Furosemide [Lasix] 40 mg PO DAILY #30 tab Mometasone/Formoterol [Dulera 100 Mcg/5 Mcg Inhaler] 13 gm IH BID #1 hfa.aer.ad Mupirocin Oint [Bactroban 2% Ointment] 8 appl TOP BID #1 tube Prednisone [Deltasone] 5 mg PO SEECOM #15 tab Sulfamethoxazole/Trimethoprim [Bactrim Ds Tablet] 1 each PO BID #14 tablet Patient Discharge Instructions: 1. Patient will need a follow up with her PCP in 1 week to follow up this hospitalization. 2. Patient presented with respiratory failure with CPR. Patient was treated and extubated. Patient found to have CHF with an ejection fraction of 36%. At discharge she does not require any oxygen. She will continue with a 1500 cc per day fluid restriction and low-salt diet. At discharge she will continue with Lasix 40 mg daily. She is to monitor her weight daily. If her weight increases by more than 5 lb she is to contact her PCP for further recommendation. At discharge she will continue with aspirin 81 mg daily and Plavix 75 mg daily. 3. Patient presented with respiratory failure. This is likely from overdose of medication- Xanax. At discharge her Xanax will need to be weaned off. Recommendation that this medication be weaned off over time. Compliance with medications was addressed in detail. 4. Patient did have an episode of atrial fibrillation. This resolved. No intervention needed. Patient will continue with aspirin 81 mg daily. 5. Patient likely has underlying COPD. At discharge she did not require any oxygen. At discharge she will continue with prednisone 5 mg 1 pill twice daily for 5 days then 1 pill once daily for 5 days. She will continue with Dulera 100 mg 2 puffs twice daily and Pro air 2 puffs 3 times a day as needed for shortness of breath. Recommendation is for the patient follow up with pulmonology in 1-2 weeks to follow up hospitalization and to continue her care. 6. Patient with history of CAD. She will continue with aspirin 81 mg daily and Plavix 75 mg daily. 7. Tobacco cessation education will be provided. 8. Patient had positive sputum culture for methicillin-resistant Staph aureus. Recommendation is for the patient continue with Bactrim DS 1 pill twice daily for 7 days. Bactroban ointment will also be provided to place in her nares and umbilicus. Diet: AHA Activity: Ad yadiel Followup: Matthew Erwin MD [ACTIVE - CAN ADMIT] - Terence Medrano MD [ACTIVE - CAN ADMIT] - (Follow up in office this week. Call to schedule an appointment. ) Time spent managing pt's care (in minutes): 55
== END 2017-08-18 10:30 | disposition left against medical advice (07) | DRG 70 ==
LOC: ER 09:01 → ERHOLD 10:02 → 3RD-ICU 12:03 → 2ND 08-16 15:42
PROVIDERS: ADMIT Family Medicine; ATTEND Family Medicine
PROC: 0BH17EZ Insertion of Endotracheal Airway into Trachea, Via Natural or Artificial Opening (ICD-10-PCS; principal; 2017-08-13)
PROC: 5A1945Z Respiratory Ventilation, 24-96 Consecutive Hours (ICD-10-PCS; 2017-08-13)
DX: G93.49 Other encephalopathy (principal); I46.9 Cardiac arrest, cause unspecified; J96.02 Acute respiratory failure with hypercapnia; J69.0 Pneumonitis due to inhalation of food and vomit; J15.212 Pneumonia due to Methicillin resistant Staphylococcus aureus; N17.9 Acute kidney failure, unspecified; J44.1 Chronic obstructive pulmonary disease with (acute) exacerbation; E87.2 Acidosis; E87.0 Hyperosmolality and hypernatremia; I50.22 Chronic systolic (congestive) heart failure; I48.0 Paroxysmal atrial fibrillation; E83.52 Hypercalcemia; I25.10 Atherosclerotic heart disease of native coronary artery without angina pectoris; E78.5 Hyperlipidemia, unspecified; F41.8 Other specified anxiety disorders; I44.7 Left bundle-branch block, unspecified; T42.4X4A Poisoning by benzodiazepines, undetermined, initial encounter; E86.0 Dehydration; R79.89 Other specified abnormal findings of blood chemistry; E87.6 Hypokalemia; E83.39 Other disorders of phosphorus metabolism; E66.09 Other obesity due to excess calories; E83.42 Hypomagnesemia; N20.0 Calculus of kidney; B95.62 Methicillin resistant Staphylococcus aureus infection as the cause of diseases classified elsewhere; Y92.89 Other specified places as the place of occurrence of the external cause; Z68.31 Body mass index [BMI] 31.0-31.9, adult
CPT/HCPCS: 31500; 36415; 51702; 70450; 71045; 72125; 74176; 76377; 76770; 80048; 80053; 80061; 80069; 80074; 80076; 80307; 80320; 80329; 81003; 81025; 82306; 82550; 82553; 82570; 82607; 82652; 82805; 82962; 83036; 83605; 83690; 83735; 83880; 83970; 84100; 84132; 84156; 84439; 84443; 84484; 84703; 85025; 85610; 85730; 87040; 87070; 87077; 87186; 87205; 92950; 93005; 93306; 94002; 94003; 94660; 94760; 99291; C9113; J0171; J1650; J2250; J2543; J2920; J3010; J3370; J3411; J3475; J7030; J7512; J7606

== ENCOUNTER 2017-08-30 03:37 | Inpatient (IN) | payer SELFPAY ==
[2017-08-30 04:23] LABS: Absolute Lymphocytes (CBC) 0.8 K/uL (0.7-4.9); Absolute Monocytes 0.4 K/uL (0.1-1.3); Absolute Neutrophil 11.8 K/uL (1.8-8.0); Basophils % 0.2 % (0-1.3); Hematocrit 43.2 % (36.0-45.0); Lymphocytes % 6.2 % (15.3-44.8); MCH 34.4 pg (27.0-35.0); MPV 8.9 fL (7.6-11.3); Monocytes % 2.8 % (3.3-12.3); RBC Red Blood Cell Count 4.04 M/uL (3.86-4.86)
[2017-08-30 04:30] LABS: Protime INR 0.98
[2017-08-30] MEDS ORDERED: ONDANSETRON 4 MG/2 ML VIAL ONE (04:36)
[2017-08-30] MEDS ORDERED: ALBUTEROL 2.5 MG/3 ML NEB SOL ONE (04:36)
[2017-08-30] MEDS ORDERED: IPRATROPIUM BROM 0.5MG/2.5ML ONE (04:36)
[2017-08-30] MEDS ORDERED: PIPER/TAZO/NS 3.375gm 3.375 GM/100 ML BAG ONE (04:37)
[2017-08-30] MEDS ORDERED: VANCOMYCIN/NS 1 gm 1 GM/250 ML BAG ONE (04:37)
[2017-08-30] MEDS ORDERED: NA CHLORIDE 0.9% 1,000 ML ONE (04:37)
[2017-08-30 04:43] LABS: Arterial Blood Carboxyhemoglob 1.9 % (0-1.5); Blood Gas Oxyhemoglobin 88.8 % (94-97); Blood O2 Saturation 91.3 % (92-98.5)
--- NOTE | 2017-08-30 04:56 | EDPHYS ---
Physician Documentation [facility] Name: Raiza Whaley Age: 46 yrs Sex: Female : 1970 Arrival Date: 08/30/2017 Time: 03:40 Bed 5 Private MD: Bruce Soares E ED Physician Bhupinder Cortez HPI: 08/30 03:58 This 46 yrs old Female presents to ER via EMS with complaints of Respiratory hiren Distress. 03:58 The patient has shortness of breath at rest, with light activity. Onset: The hiren symptoms/episode began/occurred 3 day(s) ago. Duration: The symptoms are continuous, and are steadily getting worse. The patient's shortness of breath has no apparent modifying factors. The patient or guardian reports cough, difficulty breathing. Modifying factors: The symptoms are alleviated by nothing. the symptoms are aggravated by nothing. The patient presents with confusion, decreased mental status, trouble concentrating. SIGNAL INTELLIGENCE/ELECTRONIC WARFARE: 03:40 LMP 07/2017 fc Historical: - Allergies: 03:54 No Known Allergies; fc - Home Meds: 03:54 unknown meds [Active]; fc - PMHx: 03:54 Diabetes - IDDM; Endometrosis; Myocardial infarction; Hypertension; Pneumonia; fc 04:00 Rhabdo; CHF; Atrial Fib; Acute renal failure; COPD; Anxiety; fc - PSHx: 03:54 Tubal ligation; heart cath; fc - Immunization history:: Last tetanus immunization: unknown. - Social history:: Smoking status: Patient uses tobacco products, smokes one-half pack cigarettes per day, Patient/guardian denies using alcohol, street drugs. - Family history:: not pertinent. ROS: 03:58 Eyes: Negative for injury, pain, redness, and discharge, ENT: Negative for injury, hiren pain, and discharge, Neck: Negative for injury, pain, and swelling, Cardiovascular: Negative for chest pain, palpitations, and edema, Abdomen/GI: Negative for abdominal pain, nausea, vomiting, diarrhea, and constipation, Back: Negative for injury and pain, : Negative for injury, bleeding, discharge, and swelling, MS/Extremity: Negative for injury and deformity, Skin: Negative for injury, rash, and discoloration, Allergy/Immunology: Negative for hives, rash, and allergies, Endocrine: Negative for neck swelling, polydipsia, polyuria, polyphagia, and marked weight changes, Hematologic/Lymphatic: Negative for swollen nodes, abnormal bleeding, and unusual bruising. 03:58 Neuro: Positive for weakness. Exam: 03:58 Constitutional: This is a well developed, well nourished patient who is awake, alert, hiren and in no acute distress. Head/Face: Normocephalic, atraumatic. Eyes: Pupils equal round and reactive to light, extra-ocular motions intact. Lids and lashes normal. Conjunctiva and sclera are non-icteric and not injected. Cornea within normal limits. Periorbital areas with no swelling, redness, or edema. ENT: Nares patent. No nasal discharge, no septal abnormalities noted. Tympanic membranes are normal and external auditory canals are clear. Oropharynx with no redness, swelling, or masses, exudates, or evidence of obstruction, uvula midline. Mucous membranes moist. Neck: Trachea midline, no thyromegaly or masses palpated, and no cervical lymphadenopathy. Supple, full range of motion without nuchal rigidity, or vertebral point tenderness. No Meningismus. Chest/axilla: Normal chest wall appearance and motion. Nontender with no deformity. No lesions are appreciated. Abdomen/GI: Soft, non-tender, with normal bowel sounds. No distension or tympany. No guarding or rebound. No evidence of tenderness throughout. Back: No spinal tenderness. No costovertebral tenderness. Full range of motion. Skin: Warm, dry with normal turgor. Normal color with no rashes, no lesions, and no evidence of cellulitis. MS/ Extremity: Pulses equal, no cyanosis. Neurovascular intact. Full, normal range of motion. Psych: Awake, alert, with orientation to person, place and time. Behavior, mood, and affect are within normal limits. 03:58 Cardiovascular: Rate: tachycardic, Rhythm: regular, Pulses: Pulses are 4+ in bilateral radial, brachial, femoral, popliteal, posterior tibial and and dorsalis pedis arteries.. Heart sounds: murmur, systolic, grade 2 over 6, Edema: is not appreciated, JVD: is not appreciated, Bilateral blood pressure: is equal. Vital Signs: 03:40 BP 107 / 82; Pulse 112; Resp 24; Temp 97.8(O); Pulse Ox 100% on R/A; Weight 68.04 kg fc (R); Height 5 ft. 6 in. (167.64 cm) (R); Pain 0/10; 05:23 BP 99 / 82; Pulse 95; Resp 22; Pulse Ox 98% on 30% BiPAP; tl2 06:17 BP 105 / 71; Pulse 87; Resp 20; Pulse Ox 98% on 3 lpm NC; tl2 06:25 BP 108 / 59; Pulse 85; Resp 22; Pulse Ox 93% on 30% BiPAP; tl2 06:53 BP 103 / 76; Pulse 79; Resp 24; Pulse Ox 95% on 30% BiPAP; tl2 03:40 Body Mass Index 24.21 (68.04 kg, 167.64 cm) fc MDM: 03:53 Patient medically screened. [facility] 04:01 Data reviewed: vital signs, nurses notes, lab test result(s), EKG, radiologic studies, [facility] CT scan, plain films. 08/30 03:56 Order name: Basic Metabolic Panel; Complete Time: 05:42 [facility] 08/30 03:56 Order name: BNP; Complete Time: 04:53 [facility] 08/30 03:56 Order name: CBC with Diff 08/30 03:56 Order name: Ckmb; Complete Time: 05:42 [facility] 08/30 03:56 Order name: CPK; Complete Time: 05:42 [facility] 08/30 03:56 Order name: LFT's; Complete Time: 05:42 [facility] 08/30 03:56 Order name: Magnesium; Complete Time: 05:42 [facility] 08/30 03:56 Order name: PT-INR; Complete Time: 04:53 [facility] 08/30 03:56 Order name: Ptt, Activated; Complete Time: 04:53 [facility] 08/30 03:56 Order name: Troponin (emerg Dept Use Only); Complete Time: 04:53 [facility] 08/30 03:56 Order name: UDS [facility] 08/30 03:56 Order name: Procalcitonin; Complete Time: 05:20 [facility] 08/30 03:56 Order name: Lipase; Complete Time: 05:42 [facility] 08/30 03:57 Order name: Asprin; Complete Time: 05:42 [facility] 08/30 03:56 Order name: XRAY Chest (1 view) ihren 08/30 03:57 Order name: Tylenol Level; Complete Time: 05:42 [facility] 08/30 03:57 Order name: ABG; Complete Time: 05:20 [facility] 08/30 04:24 Order name: Manual Differential EDCT 08/30 04:30 Order name: Blood Culture Adult (2) [facility] 08/30 04:30 Order name: Lactate; Complete Time: 05:38 [facility] 08/30 05:01 Order name: CT Head Brain wo Cont [facility] 08/30 05:23 Order name: Urine Dipstick--Ancillary (enter results) em1 08/30 05:23 Order name: Urine --Ancillary (enter results) em 08/30 05:42 Order name: BIPAP [facility] 08/30 06:49 Order name: Urine --Ancillary EDCT 08/30 06:49 Order name: Urine Dipstick-Ancillary EDCT 08/30 03:56 Order name: Urine Test (obtain specimen); Complete Time: 05:16 [facility] 08/30 03:56 Order name: EKG; Complete Time: 03:57 [facility] 08/30 03:56 Order name: Cardiac monitoring; Complete Time: 04:20 [facility] 08/30 03:56 Order name: EKG - Nurse/Tech; Complete Time: 04:20 [facility] 08/30 03:56 Order name: IV Saline Lock; Complete Time: 04:20 [facility] 08/30 03:56 Order name: Labs collected and sent; Complete Time: 04:20 [facility] 08/30 03:56 Order name: O2 Per Protocol; Complete Time: 04:20 [facility] 08/30 03:56 Order name: O2 Sat Monitoring; Complete Time: 04:21 [facility] 08/30 03:56 Order name: Urine Dipstick-Ancillary (obtain specimen); Complete Time: 05:16 [facility] 08/30 04:30 Order name: [place]; Complete Time: 05:13 [facility] 08/30 05:01 Order name: CONS Physician Consult EDMS Administered Medications: 05:13 Drug: Albuterol 2.5 mg Route: Inhalation; tl1 05:14 Drug: NS 0.9% 1000 ml Route: IV; Rate: 125 ml/hr; Site: left upper arm; tl2 05:14 Drug: Albuterol - atroVENT (3:1) (2.5 mg - 0.5 mg) 3 ml Route: Nebulizer; tl2 05:14 Drug: Zofran 4 mg Route: IVP; Site: left forearm; tl2 05:14 Drug: Zosyn 3.375 grams Route: IVPB; Infused Over: 60 mins; Site: right upper arm; tl2 05:15 Drug: vancoMYCIN 1 grams Route: IVPB; Infused Over: 2 hrs; Site: left forearm; tl2 05:15 Drug: NS 0.9% 500 ml Route: IV; Rate: bolus; Site: right upper arm; tl2 05:26 Drug: Pepcid 20 mg Route: IVP; Infused Over: 3 mins; Site: right upper arm; tl1 05:52 Drug: NS 0.9% 500 ml Route: IV; Rate: bolus; Site: right upper arm; tl2 Disposition: 08/30/17 04:56 Hospitalization ordered by Nikki Kauffman for Inpatient Admission. Preliminary diagnosis are Pneumonia due to other specified bacteria, Hypoxemia, Altered mental status, unspecified, Weakness, Type 1 diabetes mellitus, Elevated white blood cell count. - Bed requested for Intensive Care Unit. - Status is Inpatient Admission. sv - Condition is Fair. - Problem is new. - Symptoms have improved. UTI on Admission? No Signatures: Dispatcher [employer] EDDaylin Lee, RN Valeria Pretty RN RN sv Anderson, Corey, MD MD cha Chretien, Felicia RN Tanesha Ly RN RN tl1 Cleopatra Santana RN RN tl2
--- NOTE | 2017-08-30 04:56 | ER ---
Nurse's Notes [facility] Name: Raiza Whaley Age: 46 yrs Sex: Female : 1970 Arrival Date: 08/30/2017 Time: 03:40 Bed 5 Private MD: Bruce Soares E Diagnosis: Pneumonia due to other specified bacteria;Hypoxemia;Altered mental status, unspecified;Weakness;Type 1 diabetes mellitus;Elevated white blood cell count Presentation: 08/30 03:40 Presenting complaint: EMS states: that pt was found on the floor of bathroom at [address] by her roommate. Unknown downtime. Pt was just released from [facility] yesterday. Pt with cough and congestion. Transition of care: patient was not received from another setting of care. Onset of symptoms was August 30, 2017. Initial Sepsis Screen: Does the patient meet any 2 criteria? RR > 20 per min. HR > 90 bpm. Yes Does the patient have a suspected source of infection? Yes: Productive cough/pneumonia If YES to both, name of provider notified: Bhupinder Cortez MD. Care prior to arrival: None. 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 - Social history:: Smoking status: Patient uses tobacco products, smokes one-half pack cigarettes per day, Patient/guardian denies using alcohol, street drugs. - Family history:: not pertinent. Screenin:40 Abuse screen: Denies threats or abuse. Nutritional screening: No deficits noted. Tuberculosis screening: No symptoms or risk factors identified. Fall Risk Fall in past 12 months (25 points). Secondary diagnosis (15 points) impaired mobility, No IV (0 pts). Ambulatory Aid- None/Bed Rest/Nurse Assist (0 pts). Gait- Weak (10 pts.). Mental Status- Overestimates/Forgets Limitations (15 pts.). Total Adams Fall Scale indicates High Risk Score (45 or more points). Fall prevention measures have been instituted. Side Rails Up X 2 Placed Close to Nursing Station Frequent Obs/Assessments Occuring Family Present and informed to notify staff if the need to leave the bedside As available patient and family educated on Fall Prevention Program and Strategies. Assessment: 03:45 General: Appears in no apparent distress. uncomfortable, Behavior is calm, cooperative. tl2 Pain: Denies pain. Neuro: Level of Consciousness is awake, obeys commands, lethargic, Oriented to person, place, situation, Speech is slurred. Cardiovascular: Denies chest pain, Heart tones S1 S2 present. Respiratory: Reports shortness of breath cough that is Airway is patent Respiratory effort is even, labored, Respiratory pattern is symmetrical, Breath sounds are diminished in right upper lobe and right posterior upper lobe Breath sounds with wheezes bilaterally. the patient has moderate shortness of breath. GI: Abdomen is round Abd is soft and non tender Reports diarrhea. : No signs and/or symptoms were reported regarding the genitourinary system. Derm: Skin is dusky. 05:21 Reassessment: Patient appears in no apparent distress at this time. Patient and/or tl2 family updated on plan of care and expected duration. Pain level reassessed. Pt resting with Bipap on, awaiting lab results. 06:17 Reassessment: Patient appears in no apparent distress at this time. Pt taken off Bipap tl2 per Dr. Holloway. Pt states her breathing has improved. 06:25 Reassessment: Pt unable to cough up mucous and had difficulty breathing. Pt placed back tl2 on Bipap. Vital Signs: 03:40 BP 107 / 82; Pulse 112; Resp 24; Temp 97.8(O); Pulse Ox 100% on R/A; Weight 68.04 kg fc (R); Height 5 ft. 6 in. (167.64 cm) (R); Pain 0/10; 05:23 BP 99 / 82; Pulse 95; Resp 22; Pulse Ox 98% on 30% BiPAP; tl2 06:17 BP 105 / 71; Pulse 87; Resp 20; Pulse Ox 98% on 3 lpm NC; tl2 06:25 BP 108 / 59; Pulse 85; Resp 22; Pulse Ox 93% on 30% BiPAP; tl2 06:53 BP 103 / 76; Pulse 79; Resp 24; Pulse Ox 95% on 30% BiPAP; tl2 03:40 Body Mass Index 24.21 (68.04 kg, 167.64 cm) Vitals: 05:23 Cardiac Rhythm Assessment Sinus rhythm. tl2 ED Course: 03:40 Patient arrived in ED. em1 03:40 Arm band placed on Patient placed in an exam room, on a stretcher, on oxygen, on fc riveter helper, on pulse oximetry. 03:40 Patient has correct armband on for positive identification. Placed in gown. Bed in low fc position. Call light in reach. Side rails up X2. railroad signal operator on. Pulse ox on. NIBP on. 03:40 No provider procedures requiring assistance completed. fc 03:51 Triage completed. fc 03:53 Bhupinder Cortez MD is Attending Physician. hiren 03:54 Bruce Soares MD is Private Physician. fc 04:00 Missed attempt(s): 20 gauge in left antecubital area. Bleeding controlled, band aid fc applied, catheter tip intact. 04:16 Inserted saline lock: 22 gauge in left forearm, using aseptic technique. fc 04:55 Nikki Kauffman MD is Hospitalizing Provider. hiren 05:00 Inserted 18 gauge 10 cm midline to right upper basilic vein on first attempt. Line with fc good blood return and flushes well. 05:12 [place] cath inserted, using sterile technique, 16 Fr., by ED staff, balloon inflated, to tl1 gravity drainage, urine specimen collected. returned clear yellow urine. Patient tolerated well. 07:35 BIPAP Sent. sv 07:36 Urine --Ancillary (enter results) Sent. sv 07:36 Urine Dipstick--Ancillary (enter results) Sent. sv 07:43 Patient admitted, IV remains in place. intact. sv Administered Medications: 05:13 Drug: Albuterol 2.5 mg Route: Inhalation; tl1 05:14 Drug: NS 0.9% 1000 ml Route: IV; Rate: 125 ml/hr; Site: left upper arm; tl2 05:14 Drug: Albuterol - atroVENT (3:1) (2.5 mg - 0.5 mg) 3 ml Route: Nebulizer; tl2 05:14 Drug: Zofran 4 mg Route: IVP; Site: left forearm; tl2 05:14 Drug: Zosyn 3.375 grams Route: IVPB; Infused Over: 60 mins; Site: right upper arm; tl2 05:15 Drug: vancoMYCIN 1 grams Route: IVPB; Infused Over: 2 hrs; Site: left forearm; tl2 05:15 Drug: NS 0.9% 500 ml Route: IV; Rate: bolus; Site: right upper arm; tl2 05:26 Drug: Pepcid 20 mg Route: IVP; Infused Over: 3 mins; Site: right upper arm; tl1 05:52 Drug: NS 0.9% 500 ml Route: IV; Rate: bolus; Site: right upper arm; tl2 Outcome: 04:56 Decision to Hospitalize by Provider. hiren 07:43 Admitted to ICU accompanied by nurse, accompanied by fan, via stretcher, room 6, with oxygen, with chart, Report called to Chrissy MCGILL 07:43 Condition: stable 07:43 Instructed on the need for admit. 08:02 Patient left the ED. Signatures: Valeria Borrego, RN RN Bhupinder Millan MD MD cha Chretien, Felicia RN RN Adolfo Strange em1 Tanesha Earl RN RN tl1 Cleopatra Santana, ARTEM RN tl2 Corrections: (The following items were deleted from the chart) 04:16 04:00 Missed attempt(s): 20 gauge in right antecubital area. [facility] 05:23 03:45 Cardiac Rhythm Assessment Sinus rhythm tl2 tl2 05:23 03:45 Pulse 95bpm; Resp 22bpm; Pulse Ox 98% 02 30% BiPAP; tl2 tl2
[2017-08-30] MEDS ORDERED: FAMOTIDINE 20 MG/2 ML VIAL IV ONE (05:24)
[2017-08-30 05:31] LABS: Barbiturates NEGATIVE; Benzodiazepines POSITIVE; Cocaine NEGATIVE; METHAMPHETAM NEGATIVE; Opiates NEGATIVE
[2017-08-30 05:38] LABS: ALT/SGPT 28 IU/L (10-60); AST/SGOT 24 IU/L (10-42); Albumin 3.6 g/dL (3.2-5.5); Alkaline Phosphatase 79 IU/L (42-121); BUN Blood Urea Nitrogen 14 mg/dL (6-20); Bicarbonate 31 mEq/L (21-31); Bilirubin Direct 0.1 mg/dL (0-0.2); Bilirubin Total 0.4 mg/dL (0.3-1.2); CKMB Creatine Kinase MB 1.3 ng/ml (0.3-4.0); Creatine Phosphokinase 46 IU/L (22-269); Glucose Level 116 mg/dL (65-120); Lipase 25 U/L (22-51); Potassium 4.2 mEq/L (3.6-5.0); Protein, Total 7.9 g/dL (6.0-8.3); Sodium Level 144 mEq/L (135-145)
[2017-08-30 05:39] LABS: Salicylates Level < 4.0 mg/dl (<30)
[2017-08-30 05:51] LABS: Blood Morphology Comment NOT SEEN (NOT SEEN); Platelet Estimate ADEQ
--- NOTE | 2017-08-30 06:07 | P.HP ---
Certification for Inpatient Patient admitted to: Inpatient With expected LOS: >2 Midnights Practitioner: I am a practitioner with admitting privileges, knowledge of patient current condition, hospital course, and medical plan of care. Services: Services provided to patient in accordance with Admission requirements found in Title 42 Section 412.3 of the Code of Federal Regulations Patient History Date of Service: 08/30/17 Reason for admission: weakness, volume depletion History of Present Illness: Ms Whaley is a 46 years old woman with history if IDDM, HTN, CAD, chronic systolic CHF, last ECHO showed EF 36%, she was admitted to this hospital early this month due to cardiorespiratory arrest, requiring CPR and intubation. Once the patient improved she left AMA. The she was admitted to [facility] for pneumonia, and released . Now she was brought to ED after been found by her roomated on the floor of her bathroom. She is weak and confused. At arrival her O2 sat was 88% on RA. Drug screen positive for benzodiazepines. No history of fever or chills. Her BP is on the lower side and she is clinically dry. Allergies No Known Allergies Allergy (Unverified 08/13/17 11:16) Home Medications: Alprazolam [Xanax] 2 mg PO TID 08/14/17 Albuterol Sulfate [Proair Hfa] 8.5 gm IH TID PRN #1 hfa.aer.ad 08/18/17 Aspirin [Aspirin EC 81 MG] 81 mg PO DAILY #90 tablet. 08/18/17 Clopidogrel Bisulfate [Plavix] 75 mg PO DAILY #30 tablet 08/18/17 Furosemide [Lasix] 40 mg PO DAILY #30 tab 08/18/17 Mometasone/Formoterol [Dulera 100 Mcg/5 Mcg Inhaler] 13 gm IH BID #1 hfa.aer.ad 08/18/17 Mupirocin Oint [Bactroban 2% Ointment] 8 appl TOP BID #1 tube 08/18/17 Prednisone [Deltasone] 5 mg PO SEECOM #15 tab 08/18/17 Sulfamethoxazole/Trimethoprim [Bactrim Ds Tablet] 1 each PO BID #14 tablet 08/18 - Past Medical/Surgical History Diabetic: Yes -: Anxiety disorder -: Diabetes mellitus -: CAD -: Hyperlipidemia -: adhesion removal -: tubal Psychosocial/ Personal History: Unable to be obtained, patient [facility] at [facility] - Family History Family History: Reviewed- Non-Contributory - Social History Smoking Status: Current every day smoker Counseled patient to stop smoking for: less than 10 minutes Smoking therapy provided: Yes Patient receptive to therapy: Yes Alcohol use: Yes CD- Drugs: Yes Caffeine use: Yes Review of Systems 10-point ROS is otherwise unremarkable Physical Examination - Physical Exam General: Alert, In no apparent distress HEENT: Atraumatic, PERRLA, Mucous membr. moist/pink, EOMI, Sclerae nonicteric Neck: Supple, 2+ carotid pulse no bruit, No LAD, Without JVD or thyroid abnormality Respiratory: Diminished (bilaterally), Other (No crackles) Cardiovascular: Regular rate/rhythm, Normal S1 S2 Gastrointestinal: Normal bowel sounds, No tenderness Musculoskeletal: No tenderness Integumentary: No rashes Neurological: Normal strength at 5/5 x4 extr, Normal tone, Normal affect, Abnormal speech (slurred) Lymphatics: No axilla or inguinal lymphadenopathy - Studies Laboratory Data (last 24 hrs) 08/30/17 04:14: PT 11.6, INR 0.98, APTT 25.9 08/30/17 04:14: WBC 13.1 H D, Hgb 13.9, Hct 43.2 D, Plt Count 421 H D 08/30/17 04:14: B-Natriuretic Peptide 38 08/30/17 04:14: Sodium 144, Potassium 4.2, BUN 14, Creatinine 1.19 H, Glucose 116, Magnesium 2.0, Total Bilirubin 0.4, AST 24, ALT 28, Alkaline Phosphatase 79 , Lipase 25 Assessment and Plan - Problems (Diagnosis) (1) Acute on chronic renal failure Current Visit: Yes Status: Acute Qualifiers: Acute renal failure type: unspecified Chronic kidney disease stage: stage 2 (mild) Qualified Code(s): N17.9 - Acute kidney failure, unspecified; N18.2 - Chronic kidney disease, stage 2 (mild); N18.2 - Chronic kidney disease, stage 2 (mild) (2) Dehydration Onset Date: 08/14/17 Current Visit: No Status: Acute (3) Respiratory failure Onset Date: 08/14/17 Current Visit: No Status: Acute Qualifiers: Chronicity: acute Respiratory failure complication: hypoxia Qualified Code(s): J96.01 - Acute respiratory failure with hypoxia (4) Overdose of benzodiazepine Onset Date: 08/14/17 Current Visit: No Status: Resolved Qualifiers: Encounter type: initial encounter Injury intent: undetermined intent Qualified Code(s): T42.4X4A - Poisoning by benzodiazepines, undetermined, initial encounter - Plan Ms Whaley will be admitted to the hospital due to acute respiratory failure, She was initially on BiPAP, since O2 Sat was 88% on RA, obtunded. Currently she is more awake, and O2 sat is above 95% on NC. BP is on the lower side, seems to be dehydrated. Will gently continue with IV fluids, since she has history of severe LV dysfunction with EF 36%. - Advance Directives Does patient have a Living Will: No Does patient have a Durable POA for Healthcare: No - Code Status/Comfort Care Code Status Assessed: Yes Code Status: Full Code
[2017-08-30 06:48] LABS: Urine Blood NEGATIVE (NEG); Urine Glucose NEGATIVE (NEG); Urine Protein NEGATIVE (NEG)
--- NOTE | 2017-08-30 07:13 | EKG ---
Test Date: 2017-08-30 Test Time: 04:23:22 Aircraft Maintenance Technician: AYAN MEASUREMENT RESULTS: Intervals: Rate: 97 SC: 198 QRSD: 116 QT: 364 QTc: 462 [place]: P: 53 SC: 198 QRS: -45 T: 79 INTERPRETIVE STATEMENTS: Normal sinus rhythm Left axis deviation Incomplete right bundle branch block Anteroseptal infarct, age undetermined Abnormal ECG Compared to ECG 08/13/2017 13:41:29 Incomplete right bundle-branch block now present Myocardial infarct finding still present Electronically Signed On 08-30-17 07:12:40 CDT by Saurav Marquez
[2017-08-30] MEDS ORDERED: ACETAMINOPHEN 500 MG TAB PO PRN (08:24)
[2017-08-30] MEDS ORDERED: NA CHLORIDE 0.9% 1,000 ML IV SCH (08:24)
[2017-08-30] MEDS ORDERED: ONDANSETRON 4 MG/2 ML VIAL IV PRN (08:24)
[2017-08-30] MEDS: INSULIN -REGULAR HUMAN 50 UNIT/0.5 ML ML SQ SCH ×2 (08:24→11:30)
[2017-08-30] MEDS ORDERED: D50W 25 GM/50 ML SYRINGE IV PRN (08:33)
[2017-08-30] MEDS ORDERED: GLUCAGON 1 MG/VIAL IM PRN (08:33)
[2017-08-30 08:34] VITALS: BMI 29.9
[2017-08-30] MEDS ORDERED: ENOXAPARIN 40 MG/0.4 ML SQ SCH (09:00)
[2017-08-30] MEDS ORDERED: NICOTINE 21 MG/PAT TD SCH (09:00)
--- NOTE | 2017-08-30 11:30 | RAD REPORT ---
EXAM DESCRIPTION: CT - Head Brain Wo Cont - 08/30/2017 9:08 am CLINICAL HISTORY: Syncope. COMPARISON: August 13, 2017 TECHNIQUE: Computed axial tomography of the head was obtained. IV contrast was not requested.A preli minary report was generated by [employer] in reviewed prior to this dictation All CT scans are performed using dose optimization technique as appropriate and may include automated exposure control or mA/KV adjustment according to patient size. FINDINGS: Some images are degraded by patient motion artifact. An intracranial bleed is not seen . The ventricles are normal in caliber. No extra-axial fluid collection is noted. Mild to moderate low-density areas within periventricular, deep and subcortical white matter likely represent ischemic changes secondary to small vessel disease . A demyelinating process is another consideration. Fluid within the sinuses/ mastoids is not seen. IMPRESSION: Mild to moderate low-density areas within periventricular, deep and subcortical white ma tter likely represent ischemic changes secondary to small vessel disease. A demyelinating process is another consideration. If patient's symptoms persist MRI of the brain would be recommended.
[2017-08-30 11:31] VITALS: O2SAT 94
--- NOTE | 2017-08-30 11:31 | RAD REPORT ---
EXAM DESCRIPTION: Mirian Single View08/30/2017 6:10 am CLINICAL HISTORY: cough COMPARISON: August 15, 2017 FINDINGS: The lungs appear clear of acute infiltrate. The heart is normal size IMPRESSION: No acute abnormalities displayed
[2017-08-30 13:34] LABS: Urine Appearance CLEAR; Urine Bilirubin NEGATIVE (NEG); Urine Blood TRACE (NEG); Urine Color YELLOW; Urine Glucose NEGATIVE (NEG); Urine Protein NEGATIVE (NEG); Urine Urobilinogen 0.2 mg/dL (0.2-1.0)
[2017-08-30 13:35] LABS: Urine Microscopic Reflex ORDER UMIC
[2017-08-30 14:13] VITALS: BP 97/62; TEMP 97.5
[2017-08-30 14:30] LABS: Urine Bacteria <20 /HPF (<20); Urine Culture Reflex Order REFLEXED; Urine RBC <5 /HPF (NONE SEEN)
--- NOTE | 2017-08-30 15:13 | PN ---
Date of Progress Note: 08/30/2017 Subjective: The patient seen and examined. Chart reviewed. Case discussed with RN. The patient states she wants a BiPAP. Denies cough. Review of Systems: Negative except as above. Medications: Reviewed. Physical Examination: Vital Signs: Temperature 96.5, heart rate 76, blood pressure 95/58, respirations 18, O2 98% on BiPAP. General: Awake, alert, oriented x3, in some mild distress. Obese, BMI 30. CV: S1, S2. No murmurs. Irregularly irregular. Peripheral pulses present bilaterally. Respiratory: Diminished breath sounds. No wheezing or crackles. No stridor. Gastrointestinal: Abdomen is soft, nontender, nondistended. Positive bowel sounds. Extremities: No clubbing, cyanosis, or edema. Neuro: Nonfocal. Laboratory Data: Glucose 74, lactic acid 16, procalcitonin 0.11. Troponin less than 0.03. WBC 13. Blood cultures pending. Assessment: A 46-year-old female with. 1. Acute respiratory failure with hypoxia and hypercapnia. The patient is currently on BiPAP. We will wean as tolerated. We will repeat ABG. Pulmonology on the case. 2. Acute dehydration. Continue IV fluids. 3. Acute on chronic kidney injury. Creatinine 1.19. We will repeat labs in a.m. 4. Generalized weakness. 5. Acute overdose of benzodiazepine. Initial encounter in determined intent. 6. Gastrointestinal and deep venous thrombosis prophylaxis with PPI and Lovenox. Plan: Continue to wean off oxygen as tolerated. Follow up on head CT results. Counseled regarding medication use. May need outpatient psych eval. ADDENDUM: Patient signed out AMA. She was counseled regarding leaving against medical advice. She understands risks. She was awake, alert oriented x3. SA/MODL Voice ID: [id number] Report ID: [id number] [facility]
[2017-08-30] MEDS ORDERED: CARVEDILOL 12.5 MG TAB PO SCH (18:00)
== END 2017-08-30 14:45 | disposition left against medical advice (07) | DRG 189 ==
LOC: ER 03:37 → ERHOLD 04:56 → 3RD-ICU 07:54
PROVIDERS: ADMIT Internal Medicine; ATTEND Internal Medicine
PROC: 5A09357 Assistance with Respiratory Ventilation, Less than 24 Consecutive Hours, Continuous Positive Airway Pressure (ICD-10-PCS; principal; 2017-08-30)
DX: J96.01 Acute respiratory failure with hypoxia (principal); I13.0 Hypertensive heart and chronic kidney disease with heart failure and stage 1 through stage 4 chronic kidney disease, or unspecified chronic kidney disease; N17.9 Acute kidney failure, unspecified; I50.22 Chronic systolic (congestive) heart failure; J96.02 Acute respiratory failure with hypercapnia; E11.22 Type 2 diabetes mellitus with diabetic chronic kidney disease; N18.2 Chronic kidney disease, stage 2 (mild); E86.0 Dehydration; T42.4X1A Poisoning by benzodiazepines, accidental (unintentional), initial encounter; I25.10 Atherosclerotic heart disease of native coronary artery without angina pectoris
CPT/HCPCS: 36415; 51702; 70450; 71045; 80048; 80076; 80307; 80329; 81003; 81015; 81025; 82550; 82553; 82805; 82962; 83605; 83690; 83735; 83880; 84145; 84484; 85025; 85610; 85730; 87040; 87086; 87088; 93005; 94640; 94660; 99285; J1650; J2405; J2543; J3370; J7030

== ENCOUNTER 2017-08-30 16:06 | Inpatient (IN) | payer SELFPAY ==
--- NOTE | 2017-08-30 18:36 | EDPHYS ---
Physician Documentation [facility] Name: Raiza Whaley Age: 46 yrs Sex: Female : 1970 Arrival Date: 08/30/2017 Time: 16:07 Bed 5 Private MD: ED Physician Clinton Luciano HPI: 08/30 16:09 This 46 yrs old Female presents to ER via EMS with complaints of no ps1 complaints. 16:09 pt recently in hospital (in ICU) reportedly left AMA. Was stopped by PD walking in ps1 hospital gown and EMS called. Pt is alert and oriented and does not want to be evaluated and treated however upon talking to the patient she has no recollection of being in the hospital. Can not recall the situation leading to her admission or how she left other than going to the motel [address]. . INSTITUTION LIBRARIAN: 19:15 LMP 07/2017 sv Historical: - Allergies: 16:13 No Known Allergies; sv - Home Meds: 20:26 unknown meds [Active]; ao - PMHx: 16:13 acute renal failure; Anxiety; Atrial Fib; CHF; COPD; Diabetes - IDDM; Endometrosis; sv Hypertension; Myocardial infarction; Pneumonia; Rhabdo; - PSHx: 16:13 Tubal ligation; heart cath; sv - Immunization history:: Adult Immunizations up to date. - Social history:: Smoking status: Patient/guardian denies using tobacco. ROS: 16:22 Unable to obtain ROS due to pt has no informed decision making capacity. . ps1 Exam: 16:22 Constitutional: This is a well developed, well nourished patient who is awake, alert, ps1 and in no acute distress. Head/Face: Normocephalic, atraumatic. Chest/axilla: Normal chest wall appearance and motion. Nontender with no deformity. No lesions are appreciated. Cardiovascular: Regular rate and rhythm. No gallops, murmurs, or rubs. Normal PMI, no JVD. No pulse deficits. Respiratory: Lungs have equal breath sounds bilaterally, clear to auscultation and percussion. No rales, rhonchi or wheezes noted. No increased work of breathing, no retractions or nasal flaring. Abdomen/GI: Soft, non-tender, with normal bowel sounds. No distension or tympany. No guarding or rebound. No evidence of tenderness throughout. 16:22 Neuro: Orientation: to person, place, time, Not oriented to situation, lacks informed decision making capacity. . Vital Signs: 16:14 BP 104 / 70; Pulse 80; Resp 18; Pulse Ox 95% on R/A; sv 17:15 BP 100 / 64; Pulse 68; Resp 18; Pulse Ox 96% ; sv 18:15 BP 131 / 77; Pulse 80; Resp 18; Pulse Ox 95% ; sv 19:30 BP 99 / 65; Pulse 64; Resp 16; Pulse Ox 96% ; Pain 0/10; ao 20:08 BP 98 / 55; Pulse 90; Resp 14; Pulse Ox 100% on R/A; Pain 0/10; ao 21:00 BP 103 / 78; Pulse 84; Resp 16; Pulse Ox 99% on 2 lpm NC; Pain 0/10; ao MDM: 16:22 Data reviewed: vital signs, nurses notes. ps1 17:10 Patient medically screened. ps1 18:35 ED course: Pt does not have the ability to make informed consent to AMA. She was ps1 evaluated by myself, the greenhouse laborer, and mental health constable. 48 hour hold for patient to clear her retrograde amnesia and benzodiazepine overdose before being reevaluated for discharge. . 04 17:13 Order name: Diet Regular; Complete Time: 17:13 eb Administered Medications: No medications were administered Disposition: 18:37 Chart complete. ps1 Disposition: 0418 18:35 Hospitalization ordered by Italo Fowler for Inpatient Admission. Preliminary diagnosis is Poisoning by benzodiazepines, undetermined. - Bed requested for Intensive Care Unit. - Status is Inpatient Admission. ao - Condition is Fair. - Problem is an ongoing problem. - Symptoms are unchanged. UTI on Admission? No Signatures: Daylin Cornejo RN Valeria Pretty RN RN sv Ortiz, Alex, RN RN ao Singer, Phillip, MD MD ps1 Rylee Limon Corrections: (The following items were deleted from the chart) 16:26 16:09 pt recently in hospital (in ICU) reportedly left AMA. Was stopped by PD walking ps1 in hospital gown and EMS called. Pt is alert and oriented and does not want to be evaluated and treated. . ps1
--- NOTE | 2017-08-30 18:36 | ER ---
Nurse's Notes [facility] Name: Raiza Whaley Age: 46 yrs Sex: Female : 1970 Arrival Date: 08/30/2017 Time: 16:07 Bed 5 Private MD: Diagnosis: Poisoning by benzodiazepines, undetermined Presentation: 08/30 16:03 Presenting complaint: EMS states: called by PD due to pt found crawling on the ground sv in front of a motel in a hospital gown. Pt had slurred speech and EMS was called out. Pt left AMA here today in ICU. BP 142/100 HR 110 92% RA, placed on 2L per NC O2 sat up to 95%. Transition of care: patient was not received from another setting of care. Onset of symptoms was August 30, 2017. Care prior to arrival: None. 16:03 Method Of Arrival: EMS: [facility] sv 16:03 Acuity: PATRIZIA 3 sv 16:04 Initial Sepsis Screen: Does the patient meet any 2 criteria? No. Patient's initial sv sepsis screen is negative. Does the patient have a suspected source of infection? No. Patient's initial sepsis screen is negative. Triage Assessment: 16:05 General: Appears uncomfortable, well developed, Behavior is uncooperative. Pain: Denies sv pain. EENT: No signs and/or symptoms were reported regarding the EENT system. Neuro: Level of Consciousness is lethargic, obeys commands intermittently. Oriented to person, time, Moves all extremities. Speech is slurred. Cardiovascular: Patient's skin is warm and dry. Respiratory: Respiratory effort is even, unlabored, Respiratory pattern is regular, symmetrical. GI: No signs and/or symptoms were reported involving the gastrointestinal system. Derm: Skin is normal. PILOT [address] PATROL: 19:15 LMP 07/2017 sv Historical: - Allergies: 16:13 No Known Allergies; sv - Home Meds: 20:26 unknown meds [Active]; ao - PMHx: 16:13 acute renal failure; Anxiety; Atrial Fib; CHF; COPD; Diabetes - IDDM; Endometrosis; sv Hypertension; Myocardial infarction; Pneumonia; Rhabdo; - PSHx: 16:13 Tubal ligation; heart cath; sv - Immunization history:: Adult Immunizations up to date. - Social history:: Smoking status: Patient/guardian denies using tobacco. Screenin:16 Abuse screen: Denies threats or abuse. Denies injuries from another. Nutritional ss screening: No deficits noted. Tuberculosis screening: Never had TB. Fall Risk None identified. Assessment: 16:15 Reassessment: Magali riosapartment house manager and Dr Luciano at the bedside speaking with the pt sv at this time. 16:45 Reassessment: [place] [employer] here to speak with the pt. Pt trying to get up and down from the sv stretcher. Pt is a fall risk and has been re educated of where she is and pt is not safe to leave on her own. Pt stated that the police that came told her she could leave and they would come pick her up and take her home. Pt informed that she is not of clear mind at this time to make her own decision. Pt's speech is slurred. 17:00 Reassessment: Patient reports that she is missing her white and yellow purse, and is ss requesting to look for purse in lobby. Pt educated that she came in by EMS after leaving ICU AMA a few hours ago, and that she has not been in the lobby. ICU called and asked if purse was up there. Daly, rad technologist reports that she has not seen any type of purse since her arrival. 18:00 Reassessment: Patient appears in no apparent distress at this time. No changes from sv previously documented assessment. Patient and/or family updated on plan of care and expected duration. Pain level reassessed. 18:30 Reassessment: Patient appears in no apparent distress at this time. No changes from sv previously documented assessment. Patient and/or family updated on plan of care and expected duration. Pain level reassessed. 19:30 General: Appears in no apparent distress. comfortable, Behavior is calm, cooperative, ao appropriate for age. Pain: Denies pain. Neuro: Level of Consciousness is awake, Oriented to person, place. Cardiovascular: Patient's skin is warm and dry. Respiratory: Airway is patent Respiratory effort is even, unlabored, Respiratory pattern is regular, symmetrical. GI: Abdomen is non-distended. : No signs and/or symptoms were reported regarding the genitourinary system. EENT: No signs and/or symptoms were reported regarding the EENT system. Derm: No signs and/or symptoms reported regarding the dermatologic system. Musculoskeletal: No signs and/or symptoms reported regarding the musculoskeletal system. 20:06 Reassessment: Patient appears in no apparent distress at this time. No changes from ao previously documented assessment. Patient and/or family updated on plan of care and expected duration. Pain level reassessed. Waiting on hospital room assignment. 20:22 Reassessment: Reapplied O2 by NC at 2L. Patient woke up and tried to pull out NC tube. ao Patient was educated that O2 is low and needs O2. Left the room and patient when back to sleep with O2. Vital Signs: 16:14 BP 104 / 70; Pulse 80; Resp 18; Pulse Ox 95% on R/A; sv 17:15 BP 100 / 64; Pulse 68; Resp 18; Pulse Ox 96% ; sv 18:15 BP 131 / 77; Pulse 80; Resp 18; Pulse Ox 95% ; sv 19:30 BP 99 / 65; Pulse 64; Resp 16; Pulse Ox 96% ; Pain 0/10; ao 20:08 BP 98 / 55; Pulse 90; Resp 14; Pulse Ox 100% on R/A; Pain 0/10; ao 21:00 BP 103 / 78; Pulse 84; Resp 16; Pulse Ox 99% on 2 lpm NC; Pain 0/10; ao ED Course: 16:07 Patient arrived in ED. sv 16:08 Valeria Borrego RN is Primary Nurse. sv 16:08 Clinton Luciano MD is Attending Physician. ps1 16:11 Triage completed. sv 16:14 Arm band placed on right wrist. sv 16:30 Initial lab(s) drawn, by me, sent to lab. Inserted saline lock: 20 gauge in right sv antecubital area, using aseptic technique. Blood collected. Flushed right antecubital with 5 ml normal saline. 17:16 Patient has correct armband on for positive identification. Bed in low position. ss 17:24 called the [facility] Viole[facility], He is currently unavailable but will be calling eb in the oncoming deputy. Florence Lencho will be the deputy coming to evaluate the patient. 18:21 [facility] here to see patient. eb 18:34 Italo Fowler MD is Hospitalizing Provider. ps1 19:14 Report given to Dilip MCGILL and Harshad MCGILL. sv 19:26 Primary Nurse role handed off by Valeria Borrego RN sv 20:02 Harshad Okeefe, RN is Primary Nurse. ao 21:19 No provider procedures requiring assistance completed. Patient admitted, IV remains in ao place. Administered Medications: No medications were administered Outcome: 18:35 Decision to Hospitalize by Provider. ps1 21:19 Admitted to ICU accompanied by nurse, room 7, with oxygen, on monitor, with chart, ao Report called to ARTEM Rosas 21:19 Condition: stable 21:19 Instructed on the need for admit. 21:21 Patient left the ED. ao Signatures: Valeria Borrego RN RN Tabitha Wilhelm RN RN Harshad Okeefe RN RN ao Clinton Luciano MD MD [facility] Rylee Limon Corrections: (The following items were deleted from the chart) 17:17 16:30 Inserted saline lock: 20 gauge in right antecubital area, using aseptic ss technique. Blood collected. Flushed right antecubital with 5 ml normal saline 17:17 17:16 Patient did not have IV access during this emergency room visit. [facility] 17:17 17:16 Discharged to home ambulatory, with family, [facility] 17:17 17:16 Condition: good [facility] 17:17 17:16 Discharge instructions given to patient, family, Instructed on discharge instructions, follow up and referral plans. medication usage, Demonstrated understanding of instructions, follow-up care, medications, Prescriptions given X 1, ss 17:18 17:16 No provider procedures requiring assistance completed. ss
--- NOTE | 2017-08-30 20:06 | P.HP ---
Certification for Inpatient Patient admitted to: Inpatient With expected LOS: >2 Midnights Practitioner: I am a practitioner with admitting privileges, knowledge of patient current condition, hospital course, and medical plan of care. Services: Services provided to patient in accordance with Admission requirements found in Title 42 Section 412.3 of the Code of Federal Regulations Patient History Date of Service: 08/30/17 Reason for admission: acute encephalopathy History of Present Illness: Ms Whaley is a 46 years old woman with history of IDDM, CAD, CKD, chronic systolic CFH EF 36%, who was admitted early this morning due to respiratory failure. Upon start feeling better, the patient signed AMA. Today the palice found her walking on a hospital gown and was brought to ER again. The patient is known to abuse benzodiazepines. She does not remember spent the night in the [facility] [place]. No fever. Allergies No Known Allergies Allergy (Unverified 08/13/17 11:16) Home Medications: RX: Alprazolam [Xanax] 2 mg PO TID 08/14/17 - Past Medical/Surgical History Diabetic: Yes -: Anxiety disorder -: Diabetes mellitus -: CAD -: Hyperlipidemia -: adhesion removal -: tubal ligation Psychosocial/ Personal History: Unable to be obtained, patient lives at [facility] - Family History Mother -: Lung disease, Cancer Notes: CA and COPD Father -: Diabetes, Stroke - Social History Smoking Status: Current every day smoker Counseled patient to stop smoking for: less than 10 minutes Alcohol use: No CD- Drugs: Yes Caffeine use: No Review of Systems 10-point ROS is otherwise unremarkable Physical Examination - Physical Exam General: In no apparent distress, Confused HEENT: Atraumatic, PERRLA, Mucous membr. moist/pink, EOMI, Sclerae nonicteric Neck: Supple, 2+ carotid pulse no bruit, No LAD, Without JVD or thyroid abnormality Respiratory: Clear to auscultation bilaterally, Normal air movement Cardiovascular: Regular rate/rhythm, Normal S1 S2 Gastrointestinal: Normal bowel sounds, No tenderness Musculoskeletal: No tenderness Integumentary: No rashes Neurological: Normal speech, Normal strength at 5/5 x4 extr, Normal tone, Normal affect Lymphatics: No axilla or inguinal lymphadenopathy Assessment and Plan - Problems (Diagnosis) (1) COPD (chronic obstructive pulmonary disease) Onset Date: 08/14/17 Current Visit: No Status: Acute Qualifiers: COPD type: COPD with acute exacerbation Qualified Code(s): J44.1 - Chronic obstructive pulmonary disease with (acute) exacerbation (2) Dehydration Onset Date: 08/14/17 Current Visit: No Status: Acute (3) Pneumonia Onset Date: 08/14/17 Current Visit: No Status: Suspected Qualifiers: Pneumonia type: aspiration pneumonia Aspiration pneumonia type: unspecified Laterality: unspecified laterality Lung location: unspecified part of lung Qualified Code(s): J69.0 - Pneumonitis due to inhalation of food and vomit - Plan The patient warranted to have a psychiatry evaluation. She is on long-term for 48 hours. Will continue gently hydration, resume her home medications. Awaiting available bed in a psych facility. Stable hemodynamically. - Advance Directives Does patient have a Living Will: No Does patient have a Durable POA for Healthcare: No - Code Status/Comfort Care Code Status Assessed: Yes Code Status: Full Code
[2017-08-30] MEDS ORDERED: ACETAMINOPHEN 500 MG TAB PO PRN (20:46)
[2017-08-30] MEDS ORDERED: ONDANSETRON 4 MG/2 ML VIAL IV PRN (20:46)
[2017-08-30] MEDS: NA CHLORIDE 0.9% 1,000 ML IV SCH (21:30)
[2017-08-30] MEDS: INSULIN -REGULAR HUMAN 50 UNIT/0.5 ML ML SQ SCH (22:00)
[2017-08-31 05:25] LABS: Absolute Lymphocytes (CBC) 1.3 K/uL (0.7-4.9); Absolute Monocytes 0.3 K/uL (0.1-1.3); Basophils % 0.8 % (0-1.3); Eosinophils % 3.5 % (0-4.4); Hematocrit 33.7 % (36.0-45.0); Lymphocytes % 18.9 % (15.3-44.8); MCH 35.1 pg (27.0-35.0); MCV 107.2 fL (80-100); MPV 9.3 fL (7.6-11.3); Monocytes % 3.9 % (3.3-12.3); RBC Red Blood Cell Count 3.15 M/uL (3.86-4.86)
[2017-08-31 05:43] LABS: Potassium 3.7 mEq/L (3.6-5.0)
[2017-08-31 06:24] LABS: Blood Morphology Comment NOTED (NOT SEEN); Macrocytosis 1+; Platelet Estimate ADEQ; Urine White Blood Cell Casts OK
[2017-08-31] MEDS: NA CHLORIDE 0.9% 1,000 ML IV SCH ×2 (06:38→15:09)
[2017-08-31] MEDS: INSULIN -REGULAR HUMAN 50 UNIT/0.5 ML ML SQ SCH ×4 (07:30→20:47)
[2017-08-31] MEDS ORDERED: D50W 25 GM/50 ML SYRINGE IV PRN (12:18)
[2017-08-31] MEDS ORDERED: GLUCAGON 1 MG/VIAL IM PRN (12:18)
[2017-08-31] MEDS ORDERED: BUSPIRONE HCL 5 MG TABLET PO SCH ×2 (15:18→16:00)
[2017-08-31] MEDS: BUSPIRONE HCL 15 MG TABLET PO SCH (15:28)
[2017-08-31] MEDS: ENOXAPARIN 40 MG/0.4 ML SQ SCH (16:45)
--- NOTE | 2017-08-31 17:19 | PN ---
Date of Progress Note: 08/31/2017 Subjective: The patient is seen and examined. Chart reviewed and case discussed with RN. The patient left AMA yesterday and was picked up by the police. The patient states that she hitched a ride to her motel, however, had to be dropped off a little further away and was walking to her motel when she was picked up by the police as she was in a hospital gown. The patient was brought back to the ER and she did not wish to stay and did not wish to have any sort of psychiatric evaluation; however, the patient was placed under alf until Friday 6 p.m. and was admitted to the hospital. The patient does have history of benzodiazepine abuse. Review of Systems: Negative except as above. Medications: Reviewed. Physical Examination: Vital Signs: Temperature 97.5, heart rate 62, blood pressure 111/73, respirations 20, O2 98% on room air. General: Awake, alert, oriented x3. No acute distress. Appears older than stated age. CV: S1, S2. Regular rate and rhythm. No murmurs. Peripheral pulses present bilaterally. Respiratory: Clear to auscultation bilaterally. No wheezing. No stridor. No use of accessory muscles. Gastrointestinal: Abdomen soft, nontender, nondistended. Positive bowel sounds. Extremities: No clubbing, cyanosis, edema. Neurologic: Nonfocal. Laboratory Data: Sodium 144, potassium 3.7, chloride 113, CO2 26, BUN 12, creatinine 1.01, glucose 80, calcium 9.5. WBC 6.9, H and H 11 and 33.7, platelets 316, neutrophils 72%. Assessment And Plan: A 46-year-old female with; 1. Acute metabolic encephalopathy, resolved. 2. Benzodiazepine abuse, counseled. The patient does not wish to go to any psychiatric facility. Currently under alf for 48 hours, times up around Friday 6 p.m. The patient states that she is living out of a motel needs to figure out living situation for herself and her son. 3. Anxiety disorder. The patient has been misusing her benzodiazepines. 4. Diabetes mellitus type 2, non-insulin requiring. We will start on sliding scale insulin. The patient states that she is not a diabetic. We will check hemoglobin A1c. 5. Coronary artery disease. [place] artery and [place] heart without angina. 6. Congestive heart failure, EF 36%, diastolic, systolic dysfunction. 7. Hyperlipidemia. 8. GI and DVT prophylaxis with PPI and Lovenox. Plan: We will continue home medications. Psych referral. /ROQUE Voice ID: [id number] Report ID: [id number] MTDD
[2017-08-31] MEDS ORDERED: ZOLPIDEM TARTRATE 5 MG TABLET PO PRN (20:52)
[2017-09-01] MEDS: NA CHLORIDE 0.9% 1,000 ML IV SCH ×2 (00:34→11:05)
[2017-09-01 05:33] VITALS: BMI 30.2
[2017-09-01] MEDS: INSULIN -REGULAR HUMAN 50 UNIT/0.5 ML ML SQ SCH ×3 (07:30→16:25)
[2017-09-01] MEDS ORDERED: PANTOPRAZOLE 40MG TABLET PO SCH (07:30)
[2017-09-01 08:38] VITALS: O2SAT 93
[2017-09-01] MEDS ORDERED: CLOPIDOGREL 75 MG TABLET PO SCH (09:00)
[2017-09-01] MEDS ORDERED: BUSPIRONE HCL 15 MG TABLET PO SCH (09:00)
[2017-09-01] MEDS: BUSPIRONE HCL 15 MG TABLET PO SCH (09:07)
[2017-09-01] MEDS ORDERED: BUSPIRONE HCL 5 MG TABLET PO SCH (16:00)
--- NOTE | 2017-09-01 16:55 | P.DS ---
Admission Date: 08/30/17 Discharge Date: 09/01/17 Disposition: ROUTINE DISCHARGE Discharge Condition: FAIR Reason for Admission: acute encephalopathy - Problems (1) COPD (chronic obstructive pulmonary disease) Onset Date: 08/14/17 Current Visit: No Status: Acute Qualifiers: COPD type: COPD with acute exacerbation Qualified Code(s): J44.1 - Chronic obstructive pulmonary disease with (acute) exacerbation (2) Dehydration Onset Date: 08/14/17 Current Visit: No Status: Acute (3) Pneumonia Onset Date: 08/14/17 Current Visit: No Status: Suspected Qualifiers: Pneumonia type: aspiration pneumonia Aspiration pneumonia type: unspecified Laterality: unspecified laterality Lung location: unspecified part of lung Qualified Code(s): J69.0 - Pneumonitis due to inhalation of food and vomit Brief History of Present Illness: Ms Whaley is a 46 years old woman with history of IDDM, CAD, CKD, chronic systolic CFH EF 36%, who was admitted early this morning due to respiratory failure. Upon start feeling better, the patient signed AMA. Today the palice found her walking on a hospital gown and was brought to ER again. The patient is known to abuse benzodiazepines. She does not remember spent the night in the [facility] [place]. No fever. Hospital Course: During her stay in the hospital the patient cooperate with her care. The etiology of her altered mental status was most likely due to benzodiazepine abuse. At this point the patient is alert and oriented. She has complete 48 Hr of hospital half-way. The patient denied to have intention to harm her or other. At this point she is clinically stable to be discharged home. I have discontinue benzodiazepine medication from her home medication list. F/U with PCP in 1-2 weeks. Vital Signs/Physical Exam: Temp Pulse Resp BP Pulse Ox 97.6 F 67 19 113/64 100 09/01/17 08:00 09/01/17 13:00 09/01/17 08:00 09/01/17 11:00 09/01/17 13:00 General: Alert, In no apparent distress HEENT: Atraumatic, PERRLA, EOMI Neck: Supple, JVD not distended Respiratory: Clear to auscultation bilaterally, Normal air movement Cardiovascular: Regular rate/rhythm, Normal S1 S2 Gastrointestinal: Normal bowel sounds, No tenderness Musculoskeletal: No tenderness Integumentary: No rashes Laboratory Data at Discharge: WBC 6.9 K/uL (4.3-10.9) D 08/31/17 04:56 Hgb 11.0 g/dL (12.0-15.0) L D 08/31/17 04:56 Hct 33.7 % (36.0-45.0) L D 08/31/17 04:56 Plt Count 316 K/uL (152-406) D 08/31/17 04:56 Sodium 144 mEq/L (135-145) 08/31/17 04:56 Potassium 3.7 mEq/L (3.6-5.0) 08/31/17 04:56 BUN 12 mg/dL (6-20) 08/31/17 04:56 Creatinine 1.01 mg/dL (0.44-1.00) H 08/31/17 04:56 Glucose 80 mg/dL (65-120) 08/31/17 04:56 Home Medications: Clopidogrel Bisulfate [Plavix*] 75 mg PO DAILY 08/30/17 Patient Discharge Instructions: F/U with PCP next week Diet: Regular Activity: Ad yadiel Time spent managing pt's care (in minutes): 40
[2017-09-01] MEDS: ENOXAPARIN 40 MG/0.4 ML SQ SCH (17:00)
[2017-09-01 17:44] VITALS: BP 112/70; TEMP 97.9
== END 2017-09-01 17:32 | disposition home or self-care (01) | DRG 177 ==
LOC: ER 16:06 → ERHOLD 18:35 → 3RD-ICU 20:28
PROVIDERS: ADMIT Internal Medicine; ATTEND Internal Medicine
DX: J69.0 Pneumonitis due to inhalation of food and vomit (principal); G93.41 Metabolic encephalopathy; J96.90 Respiratory failure, unspecified, unspecified whether with hypoxia or hypercapnia; I50.22 Chronic systolic (congestive) heart failure; J44.1 Chronic obstructive pulmonary disease with (acute) exacerbation; F13.10 Sedative, hypnotic or anxiolytic abuse, uncomplicated; F41.9 Anxiety disorder, unspecified; I25.10 Atherosclerotic heart disease of native coronary artery without angina pectoris; E78.5 Hyperlipidemia, unspecified; E86.0 Dehydration; E11.9 Type 2 diabetes mellitus without complications; E11.22 Type 2 diabetes mellitus with diabetic chronic kidney disease; N18.9 Chronic kidney disease, unspecified; F17.210 Nicotine dependence, cigarettes, uncomplicated; Z79.4 Long term (current) use of insulin
CPT/HCPCS: 36415; 80048; 82962; 85025; 99285; J1650; J7030

== ENCOUNTER 2020-03-05 14:39 | Emergency (ER) | payer SELFPAY ==
--- OUTSIDE RECORDS SUMMARY | 2020-03-05 14:43 | XMS REPORT | Continuity of Care Document ---
:1970 Author Organization [facility] Care Team Providers Name Role Phone [facility] Unavailable Un available Problems Problem Status Onset Classification Date Comments Sourc e Date Reported Methicillin Active 08/21/19 Problem 08/31/2017 Nasal Swab, PCR(+ ), 08/20/2017 [facility] resistant 18 Problem added by Dis cern Expert. Staphylococcus aureus (organism) RESPIRATORY Active 08/21/19 [facility] FAILURE 18 Dysphagia Active Problem 08/31/2017 [facility] est (disorder) ACUTE RESPIRATORY Active [facility] FAILURE, UNSP W HYPOXI Medications Medication Details Route Status Patient Ordering Order Source Instructions Provider Date atorvastatin 40 40 mg = 1 tab, Active H mg oral tablet PO, Bedtime, # 2018 [facility] 90 tab, 0 Refill(s) Nystatin 100 1 appl, TOP, Active UNT/MG Topical BID, X 7 day, 2018 [facility] Powder # 30 gm, 1 Refill(s) Aspirin Notes: Do not Inactive crush or chew. 2017 [facility] (Same As: Ecotrin) atorvastatin Notes: (Same No Longer as: Lipitor) Active 2017 [facility] Nystatin 100 Notes: (Same No Longer UNT/MG Topical as:Mycostatin, Active 2017 [facility] Powder Nilstat) For external use only. ketOROLAC 15 4 days. No Longer mg/mL injectable Active 2017 [facility] [address] solution Seroquel Notes: (Same No Longer as: SEROquel) Active 2017 [facility] Albuterol 0.833 Notes: (Same No Longer H MG/ML / as: Duoneb) Active 2017 [facility] Ipratropium [place] 0.167 MG/ML Inhalant Solution [DuoNeb] Levaquin 500 mg, Route: Inactive IV, Q24H, 2017 [facility] Dosing Weight 89.5, kg, Start date: 08/25/17 14:00:00 CDT, Duration: 30 day, Stop date: 09/23/17 14:00:00 CDT, ABX Indication: Pneumonia Albuterol 0.833 Notes: (Same No Longer H MG/ML / as: Duoneb) Active 2017 [facility] Ipratropium [place] 0.167 MG/ML Inhalant Solution [DuoNeb] Budesonide Notes: (Same No Longer As: Pulmicort) Active 2017 [facility] D5W 1/2NS 1,000 1,000 mL, No Longer mL Rate: 75 Active 2017 [facility] ml/hr, Infuse over: 13.3 hr, Route: IV, Dosing Weight 89.5 kg, Total Volume: 1,000, Start date: 08/25/17 13:26:00 CDT, Duration: 30 day, Stop date: 09/24/17 13:25:00 CDT, 2.07, m2 Lasix 20 mg, Route: Inactive IVP, Drug 2017 [facility] form: INJ, ONCE, Dosing Weight 89.5, kg, Start date: 08/24/17 9:47:00 CDT, Stop date: 08/24/17 9:47:00 CDT Rocephin Notes: (Same No Longer As: Rocephin). Active 2017 [facility] Use with 100 mL NS and infuse over 30 min MEDICATION WASTE Product Size: 1000 mg Product Wasted: ___ mg Azithromycin Notes: (Same No Longer As: Zithromax Active 2017 [facility] IV) Vancomycin 2001 mg: Inactive Pharmacy Dosing infuse over 2018 [facility] 2.5 hours For adult patients only: Round to nearest 250 mg per Medical Staff approval MEDICATION WASTE Product Size: 1000 mg Product Wasted: ___ mg clopidogrel 75 75 mg = 1 tab, Active MG Oral Tablet PO, Daily, # 2018 [facility] [Plavix] 90 tab, 3 Refill(s) Aspirin 325 mg, PO, Active Daily, 0 2017 [facility] Refill(s) Alprazolam 2 MG 2 mg = 1 tab, No Longer Oral Tablet PO, TID, 0 Active 2017 [facility] [Xanax] Refill(s) Ranitidine 15 Notes: (Same No Longer MG/ML Oral as:Zantac) Active 2017 [facility] Solution Take before or with meals Seroquel Notes: (Same No Longer as: SEROquel) Active 2017 [facility] vancomycin + 2001 mg: Inactive Dextrose 5% in infuse over 2018 [facility] Water IV 250 mL 2.5 hours For adult patients only: Round to nearest 250 mg per Medical Staff approval MEDICATION WASTE Product Size: 1000 mg Product Wasted: ___ mg chlorhexidine Notes: (Same No Longer gluconate 1.2 As: Peridex) Active 2017 [facility] MG/ML Mouthwash Saline Flush Notes: (Same No Longer 0.9% as: BD Active 2017 [facility] Posiflush) Famotidine Notes: (Same No Longer as: Pepcid) Active 2017 [facility] Can be dilute in 5-10cc NS IVP: Slow IV push over at least 2 minutes. vancomycin + 2001 mg: Inactive Sodium Chloride infuse over 2018 [facility] 0.9% IV 500 mL 2.5 hours For adult patients only: Round to nearest 250 mg per Medical Staff approval MEDICATION WASTE Product Size: 1000 mg Product Wasted: ___ mg Sodium Chloride 250 mL, Route: No Longer 0.9% IV IVPB, Start Active 2017 [facility] date: 08/20/17 18:30:00 CDT, Duration: 30 day, Stop date: 09/19/17 18:29:00 CDT, PRN Line Flush POLYETHYLENE Notes: No Longer GLYCOL 3350 Dissolve in 8 Active 2017 [facility] est oz of water or juice. 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 Active 2017 [facility] Administer by either central venous catheter or peripherally-i nserted central catheter (PICC) line. Concentration: 0.032 mg / mL chlorhexidine Notes: (Same No Longer gluconate 1.2 As: Peridex) Active 2017 [facility] MG/ML Mouthwash Calcium Notes: (Same No Longer Carbonate 500 MG As: Tums) Active 2017 [facility] Chewable Tablet Calcium Carbonate 500 mg = 200 mg elemental calcium Dose = mg calcium carbonate ( mg elemental calcium) Calcium Notes: WASTE: No Longer Gluconate F/P - Sink; E Active 2017 [facility] Magnesium Oxide Notes: (Same No Longer H as: Mag-Ox Active 2017 [facility] 400) Magnesium oxide [id number] elemental magnesium Dose=____mg magnesium oxide (___mg elemental magnesium) Magnesium Notes: WASTE: No Longer Sulfate F/P - Sink; E Active 2017 [facility] - [facility] Trash Bin Potassium Notes: MUST be No Longer Chloride Diluted before Active 2017 [facility] use (Same as: KCl) MEDICATION WASTE Product Size: 20 mEq Product Wasted: ___ mEq sodium phosphate 45 mmol, 15 No Longer H mL, Route: 2017 [facility] IVPB, PRN, kg, PRN Abnormal Lab Result, Start date: 08/20/17 16:10:00 CDT, Duration: 30 day, Stop date: 09/19/17 16:09:00 CDT, FOR ICU USE ONLY potassium Notes: (Same No Longer phosphate-sodium as: Phos-NaK) Active 2017 [facility] phosphate 250 Each 1.5 gm mg-280 mg-160 mg pkt has 250mg oral powder for phosphorous. reconstitution Mix w/2.5oz water and stir. potassium Notes: (Same No Longer phosphate as: K 2017 [facility] Phosphate.) 1 mMol phoshate has 1.47 mEq potassium Infuse over 4 hours Fentanyl Notes: No Longer Concentration: Active 2017 [facility] 5 microgram / ml Saline Flush Notes: (Same No Longer 0.9% as: BD 2017 [facility] Posiflush) Bisacodyl Notes: (Same No Longer As: Dulcolax, Active 2017 [facility] [place]isco-Lax) Allergies, Adverse Reactions, Alerts No Known Medication Allergies Immunizations No Data Provided for This Section Results Order Name Results Value Reference Date Interpretation Comments [facility] rce Range ELECTROLYT AGAP 12.9 10.0 - 08/28 ES 20.0 [facility] ELECTROLYT eGFR 60 08/28 Result Comment: The [facility] eGFR is calculated using the CKD-EPI formula. In most young, healthy individuals the eGFR will be >90 mL/min/1.73m2 . The eGFR declines with age. An eGFR of 60-89 may be normal in some populations, particularly the elderly, for whom the CKD-EPI formula has not been extensively validated. Use of the eGFR is not recommended in the following populations:< br/>
Charity viduals with unstable creatinine concentration s, including patients and those with serious co-morbid conditions.<b r/>
Patie nts with extremes in muscle mass or diet.

The data above are obtained from the National Kidney Disease Education Program (NKDEP) which additionally recommends that when the eGFR is used in patients with extremes of body mass index for purposes of drug dosing, the eGFR should be multiplied by the estimated BMI. ELECTROLYT Calcium Lvl 9.5 8.5 - 10.5 08/28 [facility] ELECTROLYT Chloride Lvl 112 95 - 109 08/28 [facility] ELECTROLYT CO2 22 24 - 32 08/28 [facility] ELECTROLYT Sodium Lvl 143 135 - 145 08/28 [facility] ELECTROLYT Potassium 3.9 3.5 - 5.1 08/28 ES Lvl [facility] ELECTROLYT BUN 18 7 - 22 08/28 [facility] ELECTROLYT Creatinine 1.10 0.50 - 08/28 ES Lvl 1.40 [facility] ELECTROLYT Glucose Lvl 74 70 - 99 08/28 ES [facility] HEMATOLOGY Eosinophils 3.1 0.0 - 4.0 08/28 [facility] HEMATOLOGY Basophils 0.8 0.0 - 1.0 08/28 [facility] HEMATOLOGY Segs-Bands # 3.2 1.5 - 8.1 08/28 [facility] HEMATOLOGY Monocytes 7.9 2.0 - 12.0 08/28 [facility] HEMATOLOGY Monocytes # 0.4 0.0 - 0.8 08/28 [facility] HEMATOLOGY Eosinophils 0.2 0.0 - 0.5 08/28 # [facility] HEMATOLOGY Lymphocytes 1.3 1.0 - 5.5 08/28 MH # [facility] HEMATOLOGY Macrocyte 1+ None Seen 08/28 MH *ABN* /2017 [facility] (08/28/17 3:39 AM) HEMATOLOGY Segs 62.6 45.0 - 08/28 MH 75.0 [facility] HEMATOLOGY Lymphocytes 25.6 20.0 - 08/28 MH 40.0 [facility] HEMATOLOGY Hgb 11.1 12.0 - 08/28 MH 16.0 [facility] HEMATOLOGY Hct 32.7 36.0 - 08/28 MH 48.0 [facility] HEMATOLOGY MPV 9.0 7.4 - 10.4 08/28 [facility] HEMATOLOGY RDW 14.1 11.5 - 08/28 14.5 [facility] HEMATOLOGY MCHC 33.9 32.0 - 08/28 36.0 [facility] HEMATOLOGY MCV 106.7 80.0 - 08/28 98.0 [facility] HEMATOLOGY MCH 36.2 27.0 - 08/28 MH 31.0 [facility] HEMATOLOGY Platelet 282 133 - 450 08/28 [facility] HEMATOLOGY WBC 5.0 3.7 - 10.4 08/28 [facility] HEMATOLOGY RBC 3.06 4.20 - 08/28 5.40 [facility] CHEM PANEL Magnesium 2.6 1.8 - 2.4 08/27 Lvl [facility] ELECTROLYT AGAP 15.9 10.0 - 08/27 ES 20.0 [facility] ELECTROLYT eGFR 60 08/27 [facility] Comment: The [facility] eGFR is calculated using the CKD-EPI formula. In most young, healthy individuals the eGFR will be >90 mL/min/1.73m2 . The eGFR declines with age. An eGFR of 60-89 may be normal in some populations, particularly the elderly, for whom the CKD-EPI formula has not been extensively validated. Use of the eGFR is not recommended in the following populations:< br/>
Charity viduals with unstable creatinine concentration s, including patients and those with serious co-morbid conditions.<b r/>
Patie nts with extremes in muscle mass or diet.

The data above are obtained from the National Kidney Disease Education Program (NKDEP) which additionally recommends that when the eGFR is used in patients with extremes of body mass index for purposes of drug dosing, the eGFR should be multiplied by the estimated BMI. ELECTROLYT Chloride Lvl 108 95 - 109 08/27 [facility] ELECTROLYT Potassium 3.9 3.5 - 5.1 08/27 MH ES Lvl [facility] ELECTROLYT Calcium Lvl 9.6 8.5 - 10.5 08/27 [facility] ELECTROLYT CO2 21 24 - 32 08/27 [facility] ELECTROLYT Glucose Lvl 67 70 - 99 08/27 [facility] ELECTROLYT Sodium Lvl 141 135 - 145 08/27 [facility] ELECTROLYT Creatinine 1.10 0.50 - 08/27 ES Lvl 1.40 [facility] ELECTROLYT BUN 20 7 - 22 08/27 [facility] HEMATOLOGY MPV 8.9 7.4 - 10.4 08/27 [facility] HEMATOLOGY MCV 104.9 80.0 - 08/27 98.0 [facility] HEMATOLOGY Hct 32.7 36.0 - 08/27 MH 48.0 [facility] HEMATOLOGY RDW 14.3 11.5 - 08/27 MH 14.5 [facility] HEMATOLOGY MCHC 33.0 32.0 - 08/27 MH 36.0 [facility] HEMATOLOGY Platelet 284 133 - 450 08/27 [facility] HEMATOLOGY Hgb 10.8 12.0 - 08/27 MH 16.0 [facility] HEMATOLOGY RBC 3.12 4.20 - 08/27 MH 5.40 /2017 [facility] HEMATOLOGY WBC 5.8 3.7 - 10.4 08/27 [facility] HEMATOLOGY MCH 34.6 27.0 - 08/27 MH 31.0 /2018 [facility] HEMATOLOGY Segs-Bands # 3.9 1.5 - 8.1 08/27 [facility] HEMATOLOGY Lymphocytes 1.3 1.0 - 5.5 18 MH # /2018 [facility] HEMATOLOGY Eosinophils 0.2 0.0 - 0.5 08/27 MH # /2018 [facility] HEMATOLOGY Monocytes # 0.5 0.0 - 0.8 08/27 [facility] HEMATOLOGY Macrocyte 1+ None Seen 08/27 MH *ABN* /2017 [facility] (08/27/17 4:30 AM) HEMATOLOGY Segs 66.9 45.0 - 08/27 MH 75.0 /2018 [facility] HEMATOLOGY Lymphocytes 22.0 20.0 - 08/27 MH 40.0 /2017 [facility] HEMATOLOGY Monocytes 8.2 2.0 - 12.0 08/27 [facility] HEMATOLOGY Basophils 0.2 0.0 - 1.0 08/27 [facility] HEMATOLOGY Basophils # 0.0 0.0 - 0.2 08/27 [facility] HEMATOLOGY Eosinophils 2.7 0.0 - 4.0 08/27 [facility] CHEM PANEL Magnesium 2.7 1.8 - 2.4 08/26 MH Lvl /2017 [facility] ELECTROLYT AGAP 16.4 10.0 - 08/26 ES 20.0 [facility] ELECTROLYT eGFR 60 08/26 Result MH ES Comment: The [facility] eGFR is calculated using the CKD-EPI formula. In most young, healthy individuals the eGFR will be >90 mL/min/1.73m2 . The eGFR declines with age. An eGFR of 60-89 may be normal in some populations, particularly the elderly, for whom the CKD-EPI formula has not been extensively validated. Use of the eGFR is not recommended in the following populations:< br/>
Charity viduals with unstable creatinine concentration s, including patients and those with serious co-morbid conditions.<b r/>
Patie nts with extremes in muscle mass or diet.

The data above are obtained from the National Kidney Disease Education Program (NKDEP) which additionally recommends that when the eGFR is used in patients with extremes of body mass index for purposes of drug dosing, the eGFR should be multiplied by the estimated BMI. ELECTROLYT Calcium Lvl 10.1 8.5 - 10.5 08/26 [facility] ELECTROLYT Creatinine 1.10 0.50 - 08/26 ES Lvl 1.40 [facility] ELECTROLYT Sodium Lvl 141 135 - 145 08/26 [facility] ELECTROLYT CO2 24 24 - 32 08/26 [facility] ELECTROLYT Potassium 3.4 3.5 - 5.1 08/26 ES Lvl /2017 [facility] ELECTROLYT Chloride Lvl 104 95 - 109 08/26 ES [facility] ELECTROLYT Glucose Lvl 85 70 - 99 08/26 ES [facility] ELECTROLYT BUN 26 7 - 22 08/26 [facility] HEMATOLOGY MCHC 33.9 32.0 - 08/26 36.0 [facility] HEMATOLOGY RDW 14.1 11.5 - 08/26 14. [facility] HEMATOLOGY MCH 35.8 27.0 - 08/26 31.0 [facility] HEMATOLOGY MCV 105.6 80.0 - 08/26 98.0 [facility] HEMATOLOGY Hct 34.0 36.0 - 08/26 48.0 [facility] HEMATOLOGY Hgb 11.6 12.0 - 08/26 16.0 [facility] HEMATOLOGY WBC 8.1 3.7 - 10.4 08/26 [facility] HEMATOLOGY Platelet 315 133 - 450 08/26 [facility] HEMATOLOGY MPV 8.8 7.4 - 10.4 08/26 [facility] HEMATOLOGY RBC 3.22 4.20 - 08/26 5.40 [facility] HEMATOLOGY Macrocyte 1+ None Seen 08/26 MH *ABN* /2017 [facility] (08/26/17 4:20 AM) HEMATOLOGY Basophils # 0.0 0.0 - 0.2 08/26 [facility] HEMATOLOGY Eosinophils 0.1 0.0 - 0.5 08/26 MH # /2017 [facility] HEMATOLOGY Segs 76.4 45.0 - 08/26 75.0 [facility] HEMATOLOGY Lymphocytes 13.2 20.0 - 08/26 40.0 [facility] HEMATOLOGY Segs-Bands # 6.2 1.5 - 8.1 08/26 [facility] HEMATOLOGY Lymphocytes 1.1 1.0 - 5.5 08/26 MH # /2017 [facility] HEMATOLOGY Basophils 0.3 0.0 - 1.0 08/26 [facility] HEMATOLOGY Monocytes 8.3 2.0 - 12.0 08/26 [facility] HEMATOLOGY Eosinophils 1.8 0.0 - 4.0 08/26 [facility] HEMATOLOGY Plt Morph Normal 08/26 (08/26/17 4:20 AM) /2017 [facility] HEMATOLOGY Monocytes # 0.7 0.0 - 0.8 08/26 [facility] HEMATOLOGY RBC Morph Normal 08/26 (08/26/17 4:20 AM) /2017 [facility] est CHEM PANEL Magnesium 2.6 1.8 - 2.4 08/25 MH Lvl /2017 [facility] CHEM PANEL Phosphorus 4.0 2.5 - 4.5 08/24 [facility] CHEM PANEL Phosphorus 2.8 2.5 - 4.5 08/23 [facility] PARATHYROI Ca Ion WB 1.24 1.05 - 08/23 D PROFILE . [facility] PARATHYROI Ca Norm WB 1.30 1.05 - 08/23 D PROFILE . [facility] CHEM PANEL B/C Ratio 11 6 - 25 08/22 [facility] CHEM PANEL A/G Ratio 0.5 0.7 - 1.6 08/22 [facility] CHEM PANEL Globulin 3.8 2.7 - 4.2 08/22 [facility] CHEM PANEL Bili Total 0.4 0.2 - 1.3 08/22 [facility] CHEM PANEL Alk Phos 74 39 - 136 08/22 [facility] CHEM PANEL AST 15 0 - 37 08/22 [facility] CHEM PANEL ALT 37 0 - 65 08/22 [facility] CHEM PANEL Albumin Lvl 1.9 3.5 - 5.0 08/22 [facility] CHEM PANEL Total 5.7 6.4 - 8.4 08/22 [facility] CHEM PANEL Phosphorus 3.2 2.5 - 4.5 08/22 [facility] HEMATOLOGY Bands 9.0 0.0 - 11.0 08/22 [facility] HEMATOLOGY Plt Morph Normal 08/22 (08/22/17 3:40 AM) /2017 [facility] HEMATOLOGY RBC Morph Normal 08/22 (08/22/17 3:40 AM) /2017 [facility] est HEMATOLOGY Atypical 0.0 <=0.0 % 08/22 Lymphs [facility] HEMATOLOGY Myelocytes 1.0 <=0.0 % 08/22 [facility] PARATHYROI Ca Ion WB 1.13 1.05 - 08/22 MH D PROFILE 06.05 [facility] PARATHYROI Ca Norm WB 1.17 1.05 - 08/22 MH D PROFILE 06.05 [facility] TOXICOLOGY Vanco Tr TND [id number] 08/22 [facility] TOXICOLOGY Vanco Tr 32.9 08/22 [facility] HEMATOLOGY Plt Morph Normal 08/21 (08/21/17 2:13 AM) [facility] est HEMATOLOGY RBC Morph Normal 08/21 (08/21/17 2:13 AM) [facility] est HEMATOLOGY Atypical 0.0 <=0.0 % 08/21 Lymphs [facility] HEMATOLOGY Bands 20.0 0.0 - 11.0 08/21 [facility] PARATHYROI Ca Norm WB 1.08 1.05 - 08/21 MH D PROFILE 06.05 [facility] PARATHYROI Ca Ion WB 1.08 1.05 - 08/21 MH D PROFILE 06.05 [facility] MOLECULAR E. faecalis Not Detected Not 08/20 DIAGNOSTIC (08/20/17 6:13 PM) Detected /2017 [facility] MOLECULAR Staphylococc Detected Not 08/20 DIAGNOSTIC us spp. *ABN* Detected /2017 [facility] (08/20/17 6:13 PM) MOLECULAR Streptococcu Not Detected Not 08/20 DIAGNOSTIC s spp. (08/20/17 6:13 PM) Detected /2017 [facility] MOLECULAR S. Detected Not 08/20 DIAGNOSTIC epidermidis *ABN* Detected [facility] (08/20/17 6:13 PM) MOLECULAR E. faecium Not Detected Not 08/20 DIAGNOSTIC (08/20/17 6:13 PM) Detected /2017 [facility] MOLECULAR S. pyogenes Not Detected Not 08/20 DIAGNOSTIC (08/20/17 6:13 PM) Detected [facility] MOLECULAR S. Not Detected Not 08/20 DIAGNOSTIC agalactiae (08/20/17 6:13 PM) Detected [facility] MOLECULAR S. Not Detected Not 08/20 DIAGNOSTIC pneumoniae (08/20/17 6:13 PM) [facility] MOLECULAR S. Not Detected Not 08/20 DIAGNOSTIC lugdunensis (08/20/17 6:13 PM) Detected [facility] MOLECULAR S. anginosus Not Detected Not 08/20 DIAGNOSTIC grp (08/20/17 6:13 PM) Detected [facility] MOLECULAR S. aureus Not Detected Not 08/20 DIAGNOSTIC (08/20/17 6:13 PM) Detected [facility] MOLECULAR vanB Not Detected Not 08/20 DIAGNOSTIC Vancomycin (08/20/17 6:13 PM) Detected [facility] Resistance MOLECULAR Listeria Not Detected Not 08/20 DIAGNOSTIC spp. (08/20/17 6:13 PM) Detected /2017 [facility] MOLECULAR mecA Detected Not 08/20 DIAGNOSTIC Methicillin *ABN* Detected /[facility] (08/20/17 6:13 PM) MOLECULAR Rani Not Detected Not 08/20 DIAGNOSTIC Vancomycin (08/20/17 6:13 PM) [facility] Resistance URINE AND UA <=1.0 0.1 - 1.0 08/20 STOOL Urobilinogen /2017 [facility] URINE AND UA Color Ltyellow 08/20 STOOL [facility] URINE AND UA Mucus Few /LPF None Seen 08/20 STOOL /LPF /2017 [facility] URINE AND UA Bacteria Occasional None Seen 08/20 STOOL /HPF /HPF /2017 [facility] URINE AND UA RBC 1 0 - 2 08/20 STOOL [facility] URINE AND UA WBC 1 0 - 5 08/20 STOOL [facility] URINE AND UA Sq Epi Occasional Few /LPF 08/20 STOOL /LPF [facility] URINE AND UA Leuk Est Negative Negative 08/20 STOOL (08/20/17 6:13 PM) /2017 [facility] est URINE AND UA Glucose Negative Negative 08/20 STOOL mg/dL mg/dL [facility] URINE AND UA Protein Negative Negative 08/20 STOOL mg/dL mg/dL [facility] URINE AND UA Bili Negative Negative 08/20 STOOL *NA* /2017 [facility] (08/20/17 6:13 PM) URINE AND UA Ketones Negative Negative 08/20 STOOL mg/dL mg/dL [facility] URINE AND UA pH 5.0 5.0 - 8.0 08/20 STOOL [facility] URINE AND UA Spec Grav 1.013 <=1.030 08/20 STOOL [facility] URINE AND UA Turbidity Clear Clear 08/20 STOOL (08/20/17 6:13 PM) [facility] est URINE AND UA Nitrite Negative Negative 08/20 STOOL (08/20/17 6:13 PM) [facility] est URINE AND UA Blood Small Negative 08/20 STOOL *ABN* /2017 [facility] (08/20/17 6:13 PM) BACTERIAL MRSA by PCR Positive 1 08/20 Result - SEROLOGY *ABN* /2017 Comment: [facility] (08/20/17 5:14 PM) "Significant Findings called to Willow Clales on 08/20/2017 21:06 by [place]. Read Back OK." CARDIAC Troponin-I 0.02 0.00 - 08/20 ENZYMES 0.40 [facility] CARDIAC Total CK 45 12 - 191 08/20 ENZYMES [facility] CHEM PANEL Lactic Acid 0.8 0.5 - 2.2 08/20 Lvl [facility] CHEM PANEL Globulin 3.3 2.7 - 4.2 08/20 [facility] CHEM PANEL B/C Ratio 17 6 - 25 08/20 [facility] CHEM PANEL A/G Ratio 0.7 0.7 - 1.6 08/20 [facility] CHEM PANEL Bili Total 0.5 0.2 - 1.3 08/20 [facility] CHEM PANEL Albumin Lvl 2.4 3.5 - 5.0 08/20 [facility] CHEM PANEL Total 5.7 6.4 - 8.4 08/20 Protein [facility] CHEM PANEL AST 21 0 - 37 08/20 [facility] CHEM PANEL ALT 68 0 - 65 08/20 [facility] CHEM PANEL Alk Phos 71 39 - 136 08/20 [facility] HEMATOLOGY Bands 34.0 0.0 - 11.0 08/20 [facility] HEMATOLOGY Atypical 0.0 <=0.0 % 08/20 Lymphs [facility] HEMATOLOGY PT 13.4 12.0 - 08/20 14.7 [facility] HEMATOLOGY PTT 26.1 22.9 - 08/20 35.8 [facility] HEMATOLOGY INR 1.02 0.85 - 08/20 1.17 [facility] LIPIDS CHD Risk 4.37 3.90 - 08/20 5.80 [facility] LIPIDS VLDL 35 08/20 [facility] LIPIDS LDL 83 <=99 mg/dL 08/20 (Calculated) [facility] LIPIDS Trig 175 <=149 08/20 mg/dL [facility] LIPIDS Chol 153 <=199 08/20 mg/dL [facility] LIPIDS HDL 35 >=61 mg/dL 08/20 [facility] SPECIAL Hgb A1C 5.3 <=5.6 % 08/20 CHEMISTRY [facility] Pathology Reports No Data Provided for This Section Diagnostic Reports Report Value Date Source Esophagus BA swallow . Clinical Indication: Dysphagia/ feedi ng difficulty 08/27/2017 [facility] function video DX Comparison: None FINDINGS: Modified barium sw allow examination was performed under the supervision of the speech pathology service. The patient ingested thin li quids, thick liquids, pureed and solid substances. There is flash penetration with high volume of thin liquids. 1.4 minutes of fluoroscopic time was used. 5.224 Gy-cm2 of exposure was recorded. Fluoroscopic images were saved on PACS. Please refer to the official speech pathology re port for complete assessment. IMPRESSION: 1. Modified swallow examinat ion under the supervision of speech pathology, as noted above. SL: [id number] Chest 1view DX Clinical Indication: Abnorma l chest sounds - Aspiration pneumonia 08/26/2017 [facility] Comparison: August 25, 2017 FINDINGS: AP chest radiograph was obtained. MEDIASTINUM: The cardiac sarah houette is prominent. The aorta is unremarkable. There is an unchanged left subclavian central venous catheter. LUNGS: Lung volumes are decr eased. The right lung is clear. There is mild patchy opacity in the left lung base. There are no effusions or pneumothoraces. BONES: The visualized osseous structures are unr emarkable. IMPRESSION: Mild left basilar airspace disease. SL: [id number] Chest 1view DX Clinical Indication: Abnorma l chest sounds - Aspiration pneumonia 08/25/2017 [facility] Comparison: August 24, 2017 FINDINGS: AP chest radiograph was obtained. MEDIASTINUM: The cardiac sarah houette is prominent. The aorta is unremarkable. There is a stable left subclavian central venous catheter. There has been interval extubation and removal of a nasogastric tube. LUNGS: Lung volumes are unch anged. There is right perihilar patchy airspace disease. There is mild patchy nodular opacity in the left perihilar region. There are no effusions or pneumothoraces. BONES: The visualized osseous structures are unr emarkable. IMPRESSION: Right perihilar and left midlung airspace diseas e. SL: [id number] Chest 1view DX Clinical Indication: Pneumonia; 08/24/2017 [facility] Comparison: 08/22/2017 FINDINGS: AP chest radiographs shows n ormal lung volumes with interval improvement of the right pleural effusion as well as the left effusion. Mild residual left effusion remains. There is no pneumothorax. The left subclavian catheter is in stable position.. The heart size and pulmonary vasculature are normal. The trachea is midline. The endotracheal tube and enteric tube are in stable position. There are no clinically significant osseous abnormalities noted. IMPRESSION: 1. Interval improvement of t he bilateral pleural effusions. Mild residual left effusion remains. 2. The support devices are stable . SL: [id number] Chest 1view DX Chest 1view DX 08/22/2017 [facility] CLINICAL HISTORY:resp failure - . COMPARISON: 08/21/2017 FINDINGS: Limited AP portable study. Support Devices: The various support lines and tubes are stable in position in comparison to previous study. Lungs: Interval increase in bibasilar consolidation, worse on the right side. Findings suggest worsening pneumonia. Small bibasilar effusions are likely present as well.. Cardiomediastinum: Stable cardiomediastinum. Bone and Soft Tissues: No acute bony abnormality is noted. Multiple EKG leads and other wires project over the patient's chest. IMPRESSION: Interval increase in bibasilar consolidation. SL: [id number] Chest 1view DX PROCEDURE: Chest, AP on 08/21/2017 at 0201 hours. 08/21/2017 [facility] INDICATION: Respiratory failure. COMPARISON: Chest radiograph dated 08/20/2017 at 1602 hours. FINDINGS: Lung volumes are f urther decreased. No pleural effusion or pneumothorax. Bilateral perihilar and basilar interstitial alveolar density is present. When accounting for differences in lung volum es, bilateral opacities appe ar similar. Interstitial density extends into the upper lobes, more so on the left side. Mediastinum appears unremarkable and stable. Support tubes and catheters appear in good position. IMPRESSION: 1. Persistent bilateral inte rstitial pulmonary infiltrates, pneumonia. Decreased lung volumes. SL: [id number] Chest 1view DX 1 VIEW CXR. PORTABLE EXAM 4:02 PM 08/20/2017 [facility] HISTORY: Intubation. COMPARISON: None. Tip of the endotracheal tube is at the level of the medial aspect of the clavicles. The NG tube extends into the stomach. Left subclavian central line catheter tip projects at the level of the inferior third of the SVC. There is p rominence pulmonary markings in both lung bases. Upper lungs clear. No pleural abnormality. The cardiomediastinal silhouette is normal and the bony thorax is intact. IMPRESSION: Bibasal pneumonia or atelectasis.. END OF IMPRESSION : [id number] Consultation Notes No Data Provided for This Section Discharge Summaries No Data Provided for This Section History and Physicals No Data Provided for This Section Vital Signs Vital Sign Value Date Comments Source Systolic (mm Hg) 94 08/28/2017 [facility] t Diastolic (mm Hg) 62 08/28/2017 [facility] Respitory Rate 18 08/28/2017 [facility] Heart Rate 73 08/28/2017 [facility] Temperature Oral (F) 97.5 F 08/28/2017 [facility] Temperature Oral (F) 98.2 F 08/28/2017 [facility] Heart Rate 59 08/28/2017 [facility] Respitory Rate 18 08/28/2017 [facility] Systolic (mm Hg) 97 08/28/2017 [facility] Diastolic (mm Hg) 60 08/28/2017 [facility] Temperature Oral (F) 98.7 F 08/28/2017 [facility] Systolic (mm Hg) 91 08/28/2017 [facility] t Diastolic (mm Hg) 60 08/28/2017 [facility] Heart Rate 57 08/28/2017 [facility] Respitory Rate 18 08/28/2017 [facility] Height 167.64 cm 08/24/2017 [facility] Height 167.64 cm 08/24/2017 [facility] Height 167.64 cm 08/24/2017 [facility] BMI Calculated 31.85 08/20/2017 [facility] Weight 89.5 08/20/2017 [facility] Encounters Location Location Encounter Encounter Reason Attending ADM DC Stat us Source Details Type Number For Provider Date Date Visit [facility] Inpatient [id number] Daniel 08/20 08/28 Agustín Pierre /2017 [facility] Procedures No Data Provided for This Section Assessment and Plan Assessment and Plan Date Source Extracted from:Title: Progress Note 08/28/2017 [facility] Author: Hal Thompson MD Date: 08/27/17 1.Acute respiratory failure with hypoxia - Patient afebrile at [place] ED with procal only .27 - Has remained afebrile with normal pul se throughout this stay, minimal leukocytosis that rapidly resolved, and no concerning CXR findings for PNA - Respiratory culture grew only yeast a nd only 1 blood culture was positive for staph; verigene shows staph epidermidis - but as this was only in 1 of 2 blood cultures, likely contaminant and not pathogen - Given above, do not belive this is PNA - Given acute onset with recent history of drug use per notes at [place] in addition to rapid recovery here, believe this to be ARDS secondary to drug use - Continue supportive care - Wean O2 completely off if possible today 2.Dysphagia - Secondary to altered mental status and deconditioning - Mental status has improved today - Barium swallow recommends chopped foods with thin liquids , diet started 3.Vascular disease - Concern regarding mottling in left fo rearm with decreased pulse prompted doppler of LUE - Doppler with mild occlusive arterial disease - Likely acutely worsened with pressors administered through line on that side - No intervention warranted at this time, outpatient follow up 4.Substance abuse - Counseling on cessation 5.Intertrigo - Noted on exam today - bright red with satelite lesions between thigh folds noted, suggestive of candidal intertrigo - Will start Nystatin powder BID 6.Coronary artery disease - History of IA in past, pt reports having angioplasty with out stent - Will start ASA and statin Lovenox Inpatient Hal Thompson MD Family Medicine Pump House Technician, PGY 1 #MSO [id number] Addendum by Daniel Pierre MD on 08/29/2017 12:31 CDT I was physically present during the [place] portions of the patient evaluation and the medical decision making when performed by the resident and I concur with the above documented decisions made by the team under my guidance. Extracted from:Title: [facility] Critical Care History and Physica l Author: Yossi Wilson AB INITIO ETL DEVELOPER Date: 08/20/17 Patient: LINCONL KNIGHT Age: 46 years Sex: Female : 1970 Associated Diagnoses: None Author: Yossi Wilson AB INITIO ETL DEVELOPER Hosp Day # 1 ICU Day # 1 Vent Day # 1 24 hour Significant Events: Dyspnea Today's Plan/Goals: - Vent management - Titrate NE for MAP > 65 - Stovall-culture - Comprehensive labs HPI: This is a 46-YO woman w/ PMH HTN, IA, MR SA pneumonia, THC abuse sent to [facility] by EMS after son found her unresponsive, had trouble breathing. According to HPI from [place], Patient co mplained of chest discomfort prior to be coming unconscious. EMS found patient cynotic and cold, intubated patient on sence. The initial workup at [place] found patient has pneumonia. Of note, patient was discharged 2 days prior to hospital adm ission from [facility] for MRSA pneumonia. All medical history obtained from [facility] medical records due to patient's is unresponsive and no family available at bedside. PMH: As HPI PSH: None Social: THC abuse, Tobacco abuse (>1/2 pack/day) Family:None Allergies:NKA Medications: See MAR Reconcilliation Assessment And Plan: Neuro: Rass=-4 CAM-ICU=ESTEPHANIE Pain= ESTEPHANIE/10 Metabolic encephalopathy from sepsis - Fentanyl gtt, titrate for RASS 0 to -2 - OSH CT brain negative Substance abuse - OSH UDS positive for benzo and THC Pulm: Acute hypoxic respiratory failure due to PNA - Intubated on vent support, titrate FiO2 for SpO2 > 92% - ACVC 12/450/90/8; to follow ABG and CXR - OSH CT chest shows PNA CV: Hypotension, septic shock - Currently on NE @ 8mcg/k/min, titrate for MAP > 65 - OSH troponin 0.02, will check another set of CE - OSH 12-lead EKG shows no SR without ST elevation HTN - Hold home anti-HTN Rx for shock state Heme: No issues - CT A/P shows hemorrhagic and non-hemorhagic renal cyst - Hgb 12.9, will trend Renal / Fluids / Electrolytes: Hypokalemia - K= 2.9 OSH, repeat - replace per ICU protocol ID: Severe sepsis with septic shock from pneumonia, concern for aspiration - Reported to have gastric content seen during intubation - WBC 11.4 - Procalcitonin 0.27 - Will send stovall-culture - Start Zosyn and Vanc GI: No issues Last BM = 4/11 - OSH CT A/P no intra-abdominal process Nutrition: -Will start TF Endo: Hyperglycemia - Check A1C, TSH/T4 Muscoloskeletal / Skin: No issues GI Prophylaxis: Famotidine DVT Prophylaxis: SCDs/ Lovenox Disposition: Patient is critically ill and requires ICU care RN Bundles: (must document DOI and reason for continuation) CVC: RSC CVC for hemodynamic control, 08/20 (POA) [place]: For strict I/Os, 08/20 (POA) Vent: Yes Mobility Level and Plan: Level 1 Family Updated: None presence Advanced Care Planning: - Advanced care plan or surrogate decision maker discussed a nd documented: - Code Status: Full - Surrogate: Son Discharge Plan: Where: Home When: TBD Barriers: TBD Supportive Medicine Screening Tool Performed: NA ICU Daily Summary: 08/20 - new admission Review of Systems Unable to obtain: Due to clinical condition, Due to altered mental status. Physical Examination VS/Measurements No qualifying data available Intake and Output No I and O Data Available General: sedated and vented. Eye: Pupils are equal, round and reactive to light. HENT: Normocephalic. Neck: Supple. Respiratory: Breath sounds: Bilateral, Base, Diminished. Support: Ventilator. Cardiovascular: Normal rate, Normal peripheral perfusion, N o edema. Gastrointestinal: Soft, Non-tender, Non-distended, Normal b owel sounds. Genitourinary: Support: Urinary catheter ( Indwelling ). Musculoskeletal No swelling. No deformity. Integumentary: Warm, Dry, Intact. Review / Management Results review: No qualifying data available. Chest x-ray results Radiology results Professional Services This patient is critically ill and I spe nt non-concurrent time of 43 minutes managing patient not inclusive of procedures. Patient examined and discussed with ICU attending, Dr. Lashay pratt Addendum by Rene Esparza MD on 08/20/2017 21:29 Critical Care Attending Note: I, Rene Esparza MD have seen and exa mined this patient on 08/20/17. I agree with the nurse practioner Ms Wilson's assessment and plan as written, with my personal exceptions and additions as d ocumented in my personal note below. My note addresses my assessment of the patient's clinical condition, my treatment plan and medical decision making and my presence, activity and involvement with this patient throughout the day. Pt seen and examined. Neuro :sedated but intact,no deficits Cvs:RRR RS:Coarse ronchi ,rales BL Lung greene Abd: SOft/ND/NT Extremities : pitting edema present,pulses intact Pt is critically ill from Metabolic encephalopathy from se psis Substance abuse Acute hypoxic respiratory failure due to PNA Hypotension, septic shock Hypokalemia Severe sepsis with septic shock from pneumonia, concern for aspiration Plan of care and management today includes Continue full vent support ,FU CXR and ABG's Management of septic shock -continue Br oad spectrumm antibiotics,IVfluids and Vasopressors as needed to keep MAP >65 mmhg FY labs and Discuss with ther consult services A total of 32 accumulated minutes of cr itical care time was spent by me today in work directly related to this individual patient's care. This includes only time spent at the immediate bedside or elsewhere on the patient's floot or unit. 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
[2020-03-05] MEDS ORDERED: HYDROCODONE/APAP 10/325 TAB ONE (15:40)
--- NOTE | 2020-03-05 15:58 | RAD REPORT ---
EXAM DESCRIPTION: RAD - Ankle Left 3 View - 03/05/2020 3:28 pm CLINICAL HISTORY: PAIN, twisting injury COMPARISON: No comparisons FINDINGS: Transverse fracture of the distal fibula is present without distraction or angulation defo rmity. No distal tibia fracture. Ankle mortise is normal. No joint effusion seen. No joint space narr owing. Significant lateral soft tissue swelling present. IMPRESSION: Nondisplaced, nonangulated fracture the distal left fibula. Prominent lateral soft tissue swelling.
--- NOTE | 2020-03-05 16:09 | ER ---
Nurse's Notes [facility] Name: Razia Whaley Age: 49 yrs Sex: Female : 1970 Arrival Date: 03/05/2020 Time: 14:44 Bed 16 Private MD: Diagnosis: Nondisplaced fracture of lateral malleolus of left fibula Presentation: 03/05 14:49 Chief complaint: Patient states: Hurt left ankle yesterday, stepped in a hole. + ll1 swelling and pain. Coronavirus screen: Client denies travel out of the [place] in the last 14 days. At this time, the client does not indicate any symptoms associated with coronavirus-19. Ebola Screen: Patient denies travel to an Ebola-affected area in the 21 days before illness onset. Initial Sepsis Screen: Does the patient meet any 2 criteria? HR > 90 bpm. No. Patient's initial sepsis screen is negative. Does the patient have a suspected source of infection? Yes: Bone or joint infection. Risk Assessment: Do you want to hurt yourself or someone else? Patient reports no desire to harm self or others. Onset of symptoms was March 04, 2020. 14:49 Method Of Arrival: Wheelchair ll1 14:49 Acuity: PATRIZIA 4 ll1 Historical: - Allergies: 14:51 No Known Allergies; ll1 - PMHx: 14:51 Anxiety; Atrial Fib; CHF; COPD; Diabetes - IDDM; Endometrosis; Hypertension; Myocardial ll1 infarction; Pneumonia; Rhabdo; acute renal failure; - PSHx: 14:51 Tubal ligation; heart cath; ll1 - Immunization history:: Flu vaccine is not up to date. - Social history:: Smoking status: Patient reports the use of cigarette tobacco products, smokes one-half pack cigarettes per day. Screenin:29 Abuse screen: Denies threats or abuse. Denies injuries from another. Nutritional zb screening: No deficits noted. Tuberculosis screening: No symptoms or risk factors identified. Possible symptoms: None Risk factors: None. Fall Risk None identified. Fall in past 12 months (25 points). No secondary diagnosis (0 pts). No IV (0 pts). Ambulatory Aid- None/Bed Rest/Nurse Assist (0 pts). Gait- Normal/Bed Rest/Wheelchair (0 pts) Mental Status- Oriented to own ability (0 pts). Sepsis Screening: . Infection: Patient has no suspected or documented infection. Assessment: 15:33 General: Appears in no apparent distress. uncomfortable, obese, Behavior is calm, zb cooperative, appropriate for age. Pain: Complains of pain in left lateral ankle, left medial ankle and anterior aspect of left ankle Pain does not radiate. Pain currently is 8 out of 10 on a pain scale. Aggravated by weight bearing. Neuro: Level of Consciousness is awake, alert, obeys commands. Cardiovascular: No deficits noted. Respiratory: Airway is patent. GI: No deficits noted. No signs and/or symptoms were reported involving the gastrointestinal system. : No deficits noted. No signs and/or symptoms were reported regarding the genitourinary system. Derm: Skin is intact, is healthy with good turgor. Musculoskeletal: Swelling present in left lateral ankle, left Achilles, left medial ankle and anterior aspect of left ankle. Musculoskeletal: Tenderness present in left lateral ankle, left Achilles, left medial ankle and anterior aspect of left ankle Reports pain in left lateral ankle, left Achilles, left medial ankle and anterior aspect of left ankle. 15:43 General:. General: Reports pt reports that yesterday she tripped in a hole outside her zb house. swelling and pain continued to increase so she came to ER. unable to ambulate on left ankle. swelling and tenderness around ankle. no bruising or discoloration noted. pain rated at 8/10. pt able to move toes. 16:15 Reassessment: Patient appears in no apparent distress at this time. discharge pending zb splinting. Vital Signs: 14:49 BP 110 / 81; Pulse 92; Resp 18; Pulse Ox 96% ; Weight 90.72 kg; Height 5 ft. 6 in. ll1 (167.64 cm); Pain 8/10; 15:40 BP 109 / 73; Pulse 79; Resp 19; Temp 97.9; Pulse Ox 98% ; Height 5 ft. 6 in. (167.64 zb cm); Pain 8/10; 16:24 BP 100 / 76; Pulse 76; Resp 16; Pulse Ox 97% ; Pain 6/10; zb 17:35 BP 104 / 74; Pulse 76; Resp 16; Temp 97.5; Pulse Ox 99% on R/A; ph 15:40 Body Mass Index 32.28 (90.72 kg, 167.64 cm) zb ED Course: 14:44 Patient arrived in ED. mr 14:50 Triage completed. ll1 14:51 Arm band placed on Patient placed in an exam room, on a stretcher. ll1 14:54 Jonathan Ibanez NP is PHCP. pm1 14:54 Guanako Kelly MD is Attending Physician. pm1 15:20 Warm blanket given. Head of bed elevated. zb 15:23 Payton Cox RN is Primary Nurse. zb 15:29 Ankle Left 3 View XRAY In Process Unspecified. EDMS 15:45 Assisted to bathroom. zb 16:31 Patient has correct armband on for positive identification. Fall risk band placed. zb Placed in gown. Bed in low position. Side rails up X 1. Door closed. Noise minimized. 17:00 Patient did not have IV access during this emergency room visit. zb 17:22 Orthoglass splint: Posterior short lleg splint applied on left leg. stirrup splint dh3 applied on left leg. capillary refill <3 seconds, assisted by Payton. Viewed by Jonathan Ibanez. 17:55 No provider procedures requiring assistance completed. zb Administered Medications: 15:33 Drug: [place] 10 mg-325 mg 1 tabs Route: PO; zb 16:33 Follow up: Response: No adverse reaction; Pain is decreased; RASS: Alert and Calm (0) zb Outcome: 16:08 Discharge ordered by MD. pm1 17:40 Discharge instructions given to patient, Instructed on discharge instructions, follow zb up and referral plans. Demonstrated understanding of instructions, follow-up care, medications, Prescriptions given X 1. 17:40 Discharged to home via wheelchair, with crutches, with family. zb 17:40 Condition: good ph 17:45 Patient left the ED. ph Signatures: Dispatcher [employer] RAYSHAWNWY Charisma Fonseca Renetta Albrecht RN RN ph Marinas, Patrick, [employer]ICE PRES[employer] pm1 Dalila Britton 3 Jasper Cornejo RN RN 1 Payton Cox RN RN zb Corrections: (The following items were deleted from the chart) 17:59 17:53 Discharged to home via wheelchair, with family, zb zb 17:59 17:53 Condition: good zb zb 17:53 Discharge instructions given to patient, Instructed on discharge instructions, zb follow up and referral plans. Demonstrated understanding of instructions, follow-up care, medications, Prescriptions given X 1, zb 18: 17:40 Condition: stable zb zb
--- NOTE | 2020-03-05 16:09 | EDPHYS ---
Physician Documentation [facility] Name: Raiza Whaley Age: 49 yrs Sex: Female : 1970 Arrival Date: 03/05/2020 Time: 14:44 Bed 16 Private MD: ED Physician Guanako Kelly HPI: 03/05 14:59 This 49 yrs old Female presents to ER via Wheelchair with complaints of Ankle pm1 Injury. 14:59 The patient presents with pain, swelling. The complaints affect the left ankle. Onset: pm1 The symptoms/episode began/occurred yesterday. Context: The problem was sustained at home, resulted from stepped into a hole in her yard, The mechanism of injury involved inversion of the affected ankle. The patient can partially bear weight on the affected extremity. the patient is able to ambulate. Associated signs and symptoms: Pertinent negatives: calf tenderness, numbness, tingling. Modifying factors: The symptoms are alleviated by elevation of extremity, the symptoms are aggravated by weight bearing, movement. Severity of symptoms: in the emergency department the symptoms are unchanged. The patient has not experienced similar symptoms in the past. The patient has not recently seen a physician. Historical: - Allergies: 14:51 No Known Allergies; ll1 - PMHx: 14:51 Anxiety; Atrial Fib; CHF; COPD; Diabetes - IDDM; Endometrosis; Hypertension; Myocardial ll1 infarction; Pneumonia; Rhabdo; acute renal failure; - PSHx: 14:51 Tubal ligation; heart cath; ll1 - Immunization history:: Flu vaccine is not up to date. - Social history:: Smoking status: Patient reports the use of cigarette tobacco products, smokes one-half pack cigarettes per day. ROS: 15:11 Constitutional: Negative for fever, chills, and weight loss, Cardiovascular: Negative pm1 for chest pain, palpitations, and edema, Respiratory: Negative for shortness of breath, cough, wheezing, and pleuritic chest pain. 15:11 Skin: Negative for injury, rash, and discoloration, Neuro: Negative for headache, weakness, numbness, tingling, and seizure. 15:11 MS/extremity: Positive for pain, swelling, tenderness, of the left lateral ankle, Negative for deformity. Exam: 15:11 Constitutional: This is a well developed, well nourished patient who is awake, alert, pm1 and in no acute distress. Head/Face: Normocephalic, atraumatic. 15:11 Skin: Warm, dry with normal turgor. Normal color with no rashes, no lesions, and no evidence of cellulitis. 15:11 Cardiovascular: Exam negative for acute changes, Rate: normal, Rhythm: regular, Pulses: no pulse deficits are appreciated, Pulses are 2+ in left dorsalis pedis artery. 15:11 Respiratory: Exam negative for acute changes, respiratory distress, shortness of breath. 15:11 Musculoskeletal/extremity: Extremities: grossly normal except: noted in the left lateral ankle: There is no evidence of decreased ROM, deformity. 15:11 Neuro: Exam negative for acute changes, Orientation: is normal, Mentation: is normal, Motor: is normal, moves all fours. Vital Signs: 14:49 BP 110 / 81; Pulse 92; Resp 18; Pulse Ox 96% ; Weight 90.72 kg; Height 5 ft. 6 in. ll1 (167.64 cm); Pain 8/10; 15:40 BP 109 / 73; Pulse 79; Resp 19; Temp 97.9; Pulse Ox 98% ; Height 5 ft. 6 in. (167.64 zb cm); Pain 8/10; 16:24 BP 100 / 76; Pulse 76; Resp 16; Pulse Ox 97% ; Pain 6/10; zb 17:35 BP 104 / 74; Pulse 76; Resp 16; Temp 97.5; Pulse Ox 99% on R/A; ph 15:40 Body Mass Index 32.28 (90.72 kg, 167.64 cm) zb Procedures: 17:30 Splinting: Splint applied to left ankle using Orthoglass splint, applied by nurse. pm1 Examined by me, post splint application: neurovascular intact, 2+ distal pulses palpable, brisk capillary refill noted, Patient tolerated well. MDM: 14:58 Patient medically screened. pm1 15:13 Data reviewed: vital signs. Data interpreted: Pulse oximetry: on room air is 96 %. pm1 Interpretation: normal. 16:07 Counseling: I had a detailed discussion with the patient and/or guardian regarding: the pm1 historical points, exam findings, and any diagnostic results supporting the discharge/admit diagnosis, radiology results, the need for outpatient follow up, for definitive care, a orthopedic surgeon, to return to the emergency department if symptoms worsen or persist or if there are any questions or concerns that arise at home. 03/05 14:59 Order name: Ankle Left 3 View XRAY; Complete Time: 16:01 pm1 03/05 16:05 Order name: Splint - Ankle: Orthoglass: Stirrup; Complete Time: 17:25 pm1 03/05 16:05 Order name: Splint - Ankle: Posterior; Complete Time: 17:24 pm1 03/05 16:05 Order name: Crutches; Complete Time: 17:25 pm1 Administered Medications: 15:33 Drug: [place] 10 mg-325 mg 1 tabs Route: PO; zb 16:33 Follow up: Response: No adverse reaction; Pain is decreased; RASS: Alert and Calm (0) zb Disposition: 18:55 Co-signature as Attending Physician, Guanako Kelly MD. rn Disposition: 03/05/20 16:08 Discharged to Home. Impression: Nondisplaced fracture of lateral malleolus of left fibula. - Condition is Stable. - Discharge Instructions: Ankle Fracture, Cast or Splint Care, Adult, Crutch Use. - Prescriptions for Tramadol 50 mg Oral Tablet - take 1 tablet by ORAL route every 8 hours as needed; 12 tablet. - Medication Reconciliation Form, Thank You Letter, Antibiotic Education, Prescription Opioid Use form. - Follow up: Emergency Department; When: As needed; Reason: Worsening of condition. Follow up: Private Physician; When: 2 - 3 days; Reason: Recheck today's complaints, Continuance of care, Re-evaluation by your physician. - Problem is new. - Symptoms have improved. Signatures: Dispatcher [employer] EDGuanako Baez MD MD rn Hall, Patricia, RN RN ph Marinas, Patrick, [employer] pm1 Jasper Cornejo RN RN ll1 Payton Cox RN RN zb Corrections: (The following items were deleted from the chart) 17:45 16:08 03/05/2020 16:08 Discharged to Home. Impression: Nondisplaced fracture of lateral ph malleolus of left fibula. Condition is Stable. Forms are Medication Reconciliation Form, Thank You Letter, Antibiotic Education, Prescription Opioid Use. Follow up: Emergency Department; When: As needed; Reason: Worsening of condition. Follow up: Private Physician; When: 2 - 3 days; Reason: Recheck today's complaints, Continuance of care, Re-evaluation by your physician. Problem is new. Symptoms have improved. pm1
[2020-03-05 18:00] VITALS: TEMP 97.9
[2020-03-05 18:07] VITALS: BP 100/76; O2SAT 97
== END 2020-03-05 17:45 | disposition home or self-care (01) ==
LOC: ER 14:39
PROC: 2W3RX1Z Immobilization of Left Lower Leg using Splint (ICD-10-PCS; principal; 2020-03-05)
DX: S82.65XA Nondisplaced fracture of lateral malleolus of left fibula, initial encounter for closed fracture (principal); X58.XXXA Exposure to other specified factors, initial encounter; Y93.01 Activity, walking, marching and hiking; Y92.89 Other specified places as the place of occurrence of the external cause; N17.9 Acute kidney failure, unspecified; I10 Essential (primary) hypertension
CPT/HCPCS: 99284

== ENCOUNTER 2020-07-03 14:39 | Emergency (ER) | payer SELFPAY ==
--- OUTSIDE RECORDS SUMMARY | 2020-07-03 14:44 | XMS REPORT | Continuity of Care Document ---
:1970 Author Organization [employer] Care Team Providers Name Role Phone [facility] Unavailable Un available Problems Problem Status Onset Classification Date Comments Sourc e Date Reported Methicillin Active 08/21/19 Problem 08/31/2017 Nasal Swab, PCR(+ ), 08/20/2017 [facility] resistant 18 Problem added by Dis cern Expert. Staphylococcus aureus (organism) RESPIRATORY Active 08/21/19 [facility] FAILURE 18 Dysphagia Active Problem 08/31/2017 [facility] est (disorder) ACUTE RESPIRATORY Active [facility] FAILURE, UNSP W HYPOXI Medications [...] Do not Inactive crush or chew. 2017 [facility] (Same As: Ecotrin) atorvastatin Notes: (Same No Longer as: Lipitor) Active 2017 [facility] Nystatin 100 Notes: (Same No Longer UNT/MG Topical as:Mycostatin, Active 2017 [facility] Nilstat) For external use only. ketOROLAC 15 4 days. No Longer mg/mL injectable Active 2017 [facility] [address] solution Seroquel Notes: (Same No Longer as: SEROquel) Active 2017 [facility] Albuterol 0.833 Notes: (Same No Longer H MG/ML / as: Duoneb) Active 2017 [facility] Ipratropium Atlantic 0.167 MG/ML Inhalant Solution [DuoNeb] Levaquin 500 mg, Route: Inactive IV, Q24H, 2017 [facility] Dosing Weight 89.5, kg, Start date: 08/25/17 14:00:00 CDT, Duration: 30 day, Stop date: 09/23/17 14:00:00 CDT, ABX Indication: Pneumonia Albuterol 0.833 Notes: (Same No Longer H MG/ML / as: Duoneb) Active 2017 [facility] Ipratropium Atlantic 0.167 MG/ML Inhalant Solution [DuoNeb] Budesonide Notes: (Same No Longer As: Pulmicort) Active 2017 [facility] D5W 1/2NS 1,000 1,000 mL, No Longer mL Rate: 75 Active 2017 [facility] ml/hr, Infuse over: 13.3 hr, Route: IV, Dosing Weight 89.5 kg, Total Volume: 1,000, Start date: 08/25/17 13:26:00 CDT, Duration: 30 day, Stop date: 09/24/17 13:25:00 CDT, 2.07, m2 Lasix 20 mg, Route: Inactive IVP, Drug 2017 [facility] form: INJ, ONCE, Dosing Weight 89.5, kg, Start date: 08/24/17 9:47:00 CDT, Stop date: 08/24/17 9:47:00 CDT Rocephin Notes: (Same No Longer As: Rocephin). Active 2017 [facility] Use with 100 mL NS and infuse over 30 min MEDICATION WASTE Product Size: 1000 mg Product Wasted: ___ mg Azithromycin Notes: (Same No Longer As: Zithromax Active 2017 [facility] IV) Vancomycin 2001 mg: Inactive Pharmacy Dosing infuse over 2018 [facility] 2.5 hours For adult patients only: Round to nearest 250 mg per Medical Staff approval MEDICATION WASTE Product Size: 1000 mg Product Wasted: ___ mg clopidogrel 75 75 mg = 1 tab, Active MG Oral Tablet PO, Daily, # 2018 [facility] [Plavix] 90 tab, 3 Refill(s) Aspirin 325 mg, PO, Active Daily, 0 2017 [facility] Refill(s) Alprazolam 2 MG 2 mg = 1 tab, No Longer Oral Tablet PO, TID, 0 Active 2017 [facility] [Xanax] Refill(s) Ranitidine 15 Notes: (Same No Longer MG/ML Oral as:Zantac) Active 2017 [facility] Solution Take before or with meals Seroquel Notes: (Same No Longer as: SEROquel) Active 2017 [facility] vancomycin + 2001 mg: Inactive Dextrose 5% in infuse over 2018 [facility] Water IV 250 mL 2.5 hours For adult patients only: Round to nearest 250 mg per Medical Staff approval MEDICATION WASTE Product Size: 1000 mg Product Wasted: ___ mg chlorhexidine Notes: (Same No Longer gluconate 1.2 As: Peridex) Active 2017 [facility] MG/ML Mouthwash Saline Flush Notes: (Same No Longer 0.9% as: BD Active 2017 [facility] Posiflush) Famotidine Notes: (Same No Longer as: Pepcid) Active 2017 [facility] Can be dilute in 5-10cc NS IVP: [...] Longer 0.9% IV IVPB, Start Active 2017 [facility] date: 08/20/17 18:30:00 CDT, Duration: 30 day, Stop date: 09/19/17 18:29:00 CDT, PRN Line Flush POLYETHYLENE Notes: No Longer GLYCOL 3350 Dissolve in 8 Active 2017 [facility] est oz of water or juice. 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 Active 2017 [facility] Administer by either central venous catheter or peripherally-i nserted central catheter (PICC) line. Concentration: 0.032 mg / mL chlorhexidine Notes: (Same No Longer gluconate 1.2 As: Peridex) Active 2017 [facility] MG/ML Mouthwash Calcium Notes: (Same No Longer Carbonate 500 MG As: Tums) Active 2017 [facility] Chewable Tablet Calcium Carbonate 500 mg = 200 mg elemental calcium Dose = mg calcium carbonate ( mg elemental calcium) Calcium Notes: WASTE: No Longer Gluconate F/P - Sink; E Active 2017 [facility] Magnesium Oxide Notes: (Same No Longer H as: Mag-Ox Active 2017 [facility] 400) Magnesium oxide [id number] elemental magnesium Dose=____mg magnesium oxide (___mg elemental magnesium) Magnesium Notes: WASTE: No Longer Sulfate F/P - Sink; E Active 2017 [facility] - [facility] Trash Bin Potassium Notes: MUST be No Longer Chloride Diluted before Active 2017 [facility] use (Same as: KCl) MEDICATION WASTE Product Size: 20 mEq Product Wasted: ___ mEq sodium phosphate 45 mmol, 15 No Longer H mL, Route: 2017 [facility] IVPB, PRN, kg, PRN Abnormal Lab Result, [...] (Same No Longer phosphate as: K 2017 [facility] Phosphate.) 1 mMol phoshate has 1.47 mEq potassium Infuse over 4 hours Fentanyl Notes: No Longer Concentration: 2017 [facility] 5 microgram / ml Saline Flush Notes: (Same No Longer 0.9% as: BD 2017 [facility] Posiflush) Bisacodyl Notes: (Same No Longer As: Dulcolax, 2017 [facility] Bisco-Lax) Allergies, Adverse Reactions, Alerts No Known Medication Allergies Immunizations No Data Provided for This Section Results Order Name Results Value Reference Date Interpretation Comments Yadira rce Range ELECTROLYT AGAP 12.9 10.0 - 08/28 ES 20.0 [facility] ELECTROLYT eGFR 60 08/28 Result Comment: The [facility] eGFR is calculated using the CKD-EPI formula. [...] Calcium Lvl 9.5 8.5 - 10.5 08/28 [facility] ELECTROLYT Chloride Lvl 112 95 - 109 08/28 [facility] ELECTROLYT CO2 22 24 - 32 08/28 [facility] ELECTROLYT Sodium Lvl 143 135 - 145 08/28 [facility] ELECTROLYT Potassium 3.9 3.5 - 5.1 08/28 ES Lvl [facility] ELECTROLYT BUN 18 7 - 22 08/28 [facility] ELECTROLYT Creatinine 1.10 0.50 - 08/28 ES Lvl 1.40 [facility] ELECTROLYT Glucose Lvl 74 70 - 99 08/28 ES [facility] HEMATOLOGY Eosinophils 3.1 0.0 - 4.0 08/28 [facility] HEMATOLOGY Basophils 0.8 0.0 - 1.0 08/28 [facility] HEMATOLOGY Segs-Bands # 3.2 1.5 - 8.1 08/28 [facility] HEMATOLOGY Monocytes 7.9 2.0 - 12.0 08/28 [facility] HEMATOLOGY Monocytes # 0.4 0.0 - 0.8 08/28 [facility] HEMATOLOGY Eosinophils 0.2 0.0 - 0.5 08/28 # [facility] HEMATOLOGY Lymphocytes 1.3 1.0 - 5.5 08/28 # [facility] HEMATOLOGY Macrocyte 1+ None Seen 08/28 MH *ABN* /2017 [facility] (08/28/17 3:39 AM) HEMATOLOGY Segs 62.6 45.0 - 08/28 MH 75.0 [facility] HEMATOLOGY Lymphocytes 25.6 20.0 - 08/28 MH 40.0 [facility] HEMATOLOGY Hgb 11.1 12.0 - 08/28 MH 16.0 [facility] HEMATOLOGY Hct 32.7 36.0 - 08/28 MH 48.0 [facility] HEMATOLOGY MPV 9.0 7.4 - 10.4 08/28 [facility] HEMATOLOGY RDW 14.1 11.5 - 08/28 MH 14.5 [facility] HEMATOLOGY MCHC 33.9 32.0 - 08/28 36.0 [facility] HEMATOLOGY MCV 106.7 80.0 - 08/28 98.0 [facility] HEMATOLOGY MCH 36.2 27.0 - 08/28 31.0 [facility] HEMATOLOGY Platelet 282 133 - 450 08/28 [facility] HEMATOLOGY WBC 5.0 3.7 - 10.4 08/28 [facility] HEMATOLOGY RBC 3.06 4.20 - 08/28 5.40 [facility] CHEM PANEL Magnesium 2.6 1.8 - 2.4 08/27 Lvl [facility] ELECTROLYT AGAP 15.9 10.0 - 08/27 ES 20.0 [facility] ELECTROLYT eGFR 60 08/27 Result Comment: The [facility] eGFR is calculated using the CKD-EPI formula. [...] Chloride Lvl 108 95 - 109 08/27 [facility] ELECTROLYT Potassium 3.9 3.5 - 5.1 08/27 MH ES Lvl [facility] ELECTROLYT Calcium Lvl 9.6 8.5 - 10.5 08/27 [facility] ELECTROLYT CO2 21 24 - 32 08/27 [facility] ELECTROLYT Glucose Lvl 67 70 - 99 08/27 [facility] ELECTROLYT Sodium Lvl 141 135 - 145 08/27 [facility] ELECTROLYT Creatinine 1.10 0.50 - 08/27 ES Lvl 1.40 [facility] ELECTROLYT BUN 20 7 - 22 08/27 [facility] HEMATOLOGY MPV 8.9 7.4 - 10.4 08/27 [facility] HEMATOLOGY MCV 104.9 80.0 - 08/27 98.0 [facility] HEMATOLOGY Hct 32.7 36.0 - 08/27 MH 48.0 [facility] HEMATOLOGY RDW 14.3 11.5 - 08/27 MH 14.5 [facility] HEMATOLOGY MCHC 33.0 32.0 - 08/27 MH 36.0 [facility] HEMATOLOGY Platelet 284 133 - 450 08/27 [facility] HEMATOLOGY Hgb 10.8 12.0 - 08/27 MH 16.0 [facility] HEMATOLOGY RBC 3.12 4.20 - 08/27 MH 5.40 /2017 [facility] HEMATOLOGY WBC 5.8 3.7 - 10.4 08/27 [facility] HEMATOLOGY MCH 34.6 27.0 - 08/27 MH 31.0 /2018 [facility] HEMATOLOGY Segs-Bands # 3.9 1.5 - 8.1 08/27 [facility] HEMATOLOGY Lymphocytes 1.3 1.0 - 5.5 18 MH # /2018 [facility] HEMATOLOGY Eosinophils 0.2 0.0 - 0.5 08/27 MH # /2018 [facility] HEMATOLOGY Monocytes # 0.5 0.0 - 0.8 08/27 [facility] HEMATOLOGY Macrocyte 1+ None Seen 08/27 MH *ABN* /2017 [facility] (08/27/17 4:30 AM) HEMATOLOGY Segs 66.9 45.0 - 08/27 MH 75.0 /2018 [facility] HEMATOLOGY Lymphocytes 22.0 20.0 - 08/27 MH 40.0 /2017 [facility] HEMATOLOGY Monocytes 8.2 2.0 - 12.0 08/27 [facility] HEMATOLOGY Basophils 0.2 0.0 - 1.0 08/27 [facility] HEMATOLOGY Basophils # 0.0 0.0 - 0.2 08/27 [facility] HEMATOLOGY Eosinophils 2.7 0.0 - 4.0 08/27 [facility] CHEM PANEL Magnesium 2.7 1.8 - 2.4 08/26 MH Lvl /2017 [facility] ELECTROLYT AGAP 16.4 10.0 - 08/26 ES 20.0 [facility] ELECTROLYT eGFR 60 08/26 Result ES Comment: The [facility] eGFR is calculated using the CKD-EPI formula. [...] Calcium Lvl 10.1 8.5 - 10.5 08/26 ES /2017 [facility] ELECTROLYT Creatinine 1.10 0.50 - 08/26 ES Lvl 1.40 [facility] ELECTROLYT Sodium Lvl 141 135 - 145 08/26 ES [facility] ELECTROLYT CO2 24 24 - 32 08/26 [facility] ELECTROLYT Potassium 3.4 3.5 - 5.1 08/26 ES Lvl /2017 [facility] ELECTROLYT Chloride Lvl 104 95 - 109 08/26 ES [facility] ELECTROLYT Glucose Lvl 85 70 - 99 08/26 ES /2017 [facility] ELECTROLYT BUN 26 7 - 22 08/26 /2017 [facility] HEMATOLOGY MCHC 33.9 32.0 - 08/26 36.0 [facility] HEMATOLOGY RDW 14.1 11.5 - 08/26 14. [facility] HEMATOLOGY MCH 35.8 27.0 - 08/26 31.0 [facility] HEMATOLOGY MCV 105.6 80.0 - 08/26 98.0 [facility] HEMATOLOGY Hct 34.0 36.0 - 08/26 48.0 [facility] HEMATOLOGY Hgb 11.6 12.0 - 08/26 16.0 [facility] HEMATOLOGY WBC 8.1 3.7 - 10.4 08/26 [facility] HEMATOLOGY Platelet 315 133 - 450 08/26 [facility] HEMATOLOGY MPV 8.8 7.4 - 10.4 08/26 [facility] HEMATOLOGY RBC 3.22 4.20 - 08/26 5.40 [facility] HEMATOLOGY Macrocyte 1+ None Seen 08/26 MH *ABN* /2017 [facility] (08/26/17 4:20 AM) HEMATOLOGY Basophils # 0.0 0.0 - 0.2 08/26 [facility] HEMATOLOGY Eosinophils 0.1 0.0 - 0.5 08/26 MH # /2017 [facility] HEMATOLOGY Segs 76.4 45.0 - 08/26 MH 75.0 [facility] HEMATOLOGY Lymphocytes 13.2 20.0 - 08/26 40.0 [facility] HEMATOLOGY Segs-Bands # 6.2 1.5 - 8.1 08/26 [facility] HEMATOLOGY Lymphocytes 1.1 1.0 - 5.5 08/26 MH # /2017 [facility] HEMATOLOGY Basophils 0.3 0.0 - 1.0 08/26 [facility] HEMATOLOGY Monocytes 8.3 2.0 - 12.0 08/26 [facility] HEMATOLOGY Eosinophils 1.8 0.0 - 4.0 08/26 [facility] HEMATOLOGY Plt Morph Normal 08/26 (08/26/17 4:20 AM) /2017 [facility] HEMATOLOGY Monocytes # 0.7 0.0 - 0.8 08/26 [facility] HEMATOLOGY RBC Morph Normal 08/26 (08/26/17 4:20 AM) /2017 [facility] est CHEM PANEL Magnesium 2.6 1.8 - 2.4 08/25 MH Lvl /2017 [facility] CHEM PANEL Phosphorus 4.0 2.5 - 4.5 08/24 [facility] CHEM PANEL Phosphorus 2.8 2.5 - 4.5 08/23 [facility] PARATHYROI Ca Ion WB 1.24 1.05 - 08/23 D PROFILE . [facility] PARATHYROI Ca Norm WB 1.30 1.05 - 08/23 D PROFILE . [facility] CHEM PANEL B/C Ratio 11 6 - 25 08/22 [facility] CHEM PANEL A/G Ratio 0.5 0.7 - 1.6 08/22 [facility] CHEM PANEL Globulin 3.8 2.7 - 4.2 08/22 [facility] CHEM PANEL Bili Total 0.4 0.2 - 1.3 08/22 [facility] CHEM PANEL Alk Phos 74 39 - 136 08/22 [facility] CHEM PANEL AST 15 0 - 37 08/22 [facility] CHEM PANEL ALT 37 0 - 65 08/22 [facility] CHEM PANEL Albumin Lvl 1.9 3.5 - 5.0 08/22 [facility] CHEM PANEL Total 5.7 6.4 - 8.4 08/22 [facility] CHEM PANEL Phosphorus 3.2 2.5 - 4.5 08/22 [facility] HEMATOLOGY Bands 9.0 0.0 - 11.0 08/22 [facility] HEMATOLOGY Plt Morph Normal 08/22 (08/22/17 3:40 AM) /2017 [facility] HEMATOLOGY RBC Morph Normal 08/22 (08/22/17 3:40 AM) /2017 [facility] est HEMATOLOGY Atypical 0.0 <=0.0 % 08/22 Lymphs [facility] HEMATOLOGY Myelocytes 1.0 <=0.0 % 08/22 [facility] PARATHYROI Ca Ion WB 1.13 1.05 - 08/22 MH D PROFILE 06.05 [facility] PARATHYROI Ca Norm WB 1.17 1.05 - 08/22 MH D PROFILE 06.05 [facility] TOXICOLOGY Vanco Tr TND [id number] 08/22 [facility] TOXICOLOGY Vanco Tr 32.9 08/22 [facility] HEMATOLOGY Plt Morph Normal 08/21 (08/21/17 2:13 AM) [facility] est HEMATOLOGY RBC Morph Normal 08/21 (08/21/17 2:13 AM) [facility] est HEMATOLOGY Atypical 0.0 <=0.0 % 08/21 Lymphs [facility] HEMATOLOGY Bands 20.0 0.0 - 11.0 08/21 [facility] PARATHYROI Ca Norm WB 1.08 1.05 - 08/21 MH D PROFILE 06.05 [facility] PARATHYROI Ca Ion WB 1.08 1.05 - 08/21 MH D PROFILE 06.05 [facility] MOLECULAR E. faecalis Not Detected Not 08/20 DIAGNOSTIC (08/20/17 6:13 PM) Detected /2017 [facility] MOLECULAR Staphylococc Detected Not 08/20 DIAGNOSTIC us spp. *ABN* Detected [facility] (08/20/17 6:13 PM) MOLECULAR Streptococcu Not Detected Not 08/20 DIAGNOSTIC s spp. (08/20/17 6:13 PM) Detected [facility] MOLECULAR S. Detected Not 08/20 DIAGNOSTIC epidermidis *ABN* Detected [facility] (08/20/17 6:13 PM) MOLECULAR E. faecium Not Detected Not 08/20 DIAGNOSTIC (08/20/17 6:13 PM) Detected /2017 [facility] MOLECULAR S. pyogenes Not Detected Not 08/20 DIAGNOSTIC (08/20/17 6:13 PM) Detected [facility] MOLECULAR S. Not Detected Not 08/20 DIAGNOSTIC agalactiae (08/20/17 6:13 PM) Detected [facility] MOLECULAR S. Not Detected Not 08/20 DIAGNOSTIC pneumoniae (08/20/17 6:13 PM) [facility] MOLECULAR S. Not Detected Not 08/20 DIAGNOSTIC lugdunensis (08/20/17 6:13 PM) Detected [facility] MOLECULAR S. anginosus Not Detected Not 08/20 DIAGNOSTIC grp (08/20/17 6:13 PM) Detected /2017 [facility] MOLECULAR S. aureus Not Detected Not 08/20 DIAGNOSTIC (08/20/17 6:13 PM) Detected [facility] MOLECULAR vanB Not Detected Not 08/20 DIAGNOSTIC Vancomycin (08/20/17 6:13 PM) [facility] Resistance MOLECULAR Listeria Not Detected Not 08/20 DIAGNOSTIC spp. (08/20/17 6:13 PM) Detected [facility] MOLECULAR mecA Detected Not 08/20 DIAGNOSTIC Methicillin *ABN* Detected /2017 [facility] Resistance (08/20/17 6:13 PM) MOLECULAR Rani Not Detected Not 08/20 DIAGNOSTIC Vancomycin (08/20/17 6:13 PM) [facility] Resistance URINE AND UA <=1.0 0.1 - 1.0 08/20 STOOL Urobilinogen [facility] URINE AND UA Color Ltyellow 08/20 STOOL [facility] URINE AND UA Mucus Few /LPF None Seen 08/20 STOOL /LPF [facility] URINE AND UA Bacteria Occasional None Seen 08/20 STOOL /HPF /HPF /2017 [facility] URINE AND UA RBC 1 0 - 2 08/20 STOOL [facility] URINE AND UA WBC 1 0 - 5 08/20 STOOL [facility] URINE AND UA Sq Epi Occasional Few /LPF 08/20 STOOL /LPF [facility] URINE AND UA Leuk Est Negative Negative 08/20 STOOL (08/20/17 6:13 PM) /2017 [facility] est URINE AND UA Glucose Negative Negative 08/20 STOOL mg/dL mg/dL [facility] URINE AND UA Protein Negative Negative 08/20 STOOL mg/dL mg/dL [facility] URINE AND UA Bili Negative Negative 08/20 STOOL *NA* /2017 [facility] (08/20/17 6:13 PM) URINE AND UA Ketones Negative Negative 08/20 STOOL mg/dL mg/dL [facility] URINE AND UA pH 5.0 5.0 - 8.0 08/20 STOOL [facility] URINE AND UA Spec Grav 1.013 <=1.030 08/20 STOOL [facility] URINE AND UA Turbidity Clear Clear 08/20 STOOL (08/20/17 6:13 PM) [facility] est URINE AND UA Nitrite Negative Negative 08/20 STOOL (08/20/17 6:13 PM) [facility] est URINE AND UA Blood Small Negative 08/20 STOOL *ABN* /2017 [facility] (08/20/17 6:13 PM) BACTERIAL MRSA by PCR Positive 1 08/20 Result - SEROLOGY *ABN* /2017 Comment: [facility] (08/20/17 5:14 PM) "Significant Findings called to Willow Calles on 08/20/2017 21:06 by [place]. Read Back OK." CARDIAC Troponin-I 0.02 0.00 - 08/20 ENZYMES 0.40 [facility] CARDIAC Total CK 45 12 - 191 08/20 ENZYMES [facility] CHEM PANEL Lactic Acid 0.8 0.5 - 2.2 08/20 Lvl [facility] CHEM PANEL Globulin 3.3 2.7 - 4.2 08/20 [facility] CHEM PANEL B/C Ratio 17 6 - 25 08/20 [facility] CHEM PANEL A/G Ratio 0.7 0.7 - 1.6 08/20 [facility] CHEM PANEL Bili Total 0.5 0.2 - 1.3 08/20 [facility] CHEM PANEL Albumin Lvl 2.4 3.5 - 5.0 08/20 [facility] CHEM PANEL Total 5.7 6.4 - 8.4 08/20 Protein [facility] CHEM PANEL AST 21 0 - 37 08/20 [facility] CHEM PANEL ALT 68 0 - 65 08/20 [facility] CHEM PANEL Alk Phos 71 39 - 136 08/20 [facility] HEMATOLOGY Bands 34.0 0.0 - 11.0 08/20 [facility] HEMATOLOGY Atypical 0.0 <=0.0 % 08/20 Lymphs [facility] HEMATOLOGY PT 13.4 12.0 - 08/20 14.7 [facility] HEMATOLOGY PTT 26.1 22.9 - 08/20 35.8 [facility] HEMATOLOGY INR 1.02 0.85 - 08/20 1.17 [facility] LIPIDS CHD Risk 4.37 3.90 - 08/20 5.80 [facility] LIPIDS VLDL 35 08/20 [facility] LIPIDS LDL 83 <=99 mg/dL 08/20 (Calculated) [facility] LIPIDS Trig 175 <=149 08/20 mg/dL [facility] LIPIDS Chol 153 <=199 08/20 mg/dL [facility] LIPIDS HDL 35 >=61 mg/dL 08/20 [facility] SPECIAL Hgb A1C 5.3 <=5.6 % 08/20 CHEMISTRY [facility] Pathology Reports No Data Provided for This Section Diagnostic Reports Report Value Date Source Esophagus BA swallow . Clinical Indication: Dysphagia/ feedi ng difficulty 08/27/2017 [facility] function video DX Comparison: None [...] of speech pathology, as noted above. SL: [id number] Chest 1view DX Clinical Indication: Abnorma l chest sounds - Aspiration pneumonia 08/26/2017 [facility] Comparison: August 25, 2017 FINDINGS: [...] IMPRESSION: Mild left basilar airspace disease. SL: [id number] Chest 1view DX Clinical Indication: Abnorma l chest sounds - Aspiration pneumonia 08/25/2017 [facility] Comparison: August 24, 2017 FINDINGS: [...] and left midlung airspace diseas e. SL: [id number] Chest 1view DX Clinical Indication: Pneumonia; 08/24/2017 [facility] Comparison: 08/22/2017 FINDINGS: AP chest [...] The support devices are stable . SL: [id number] Chest 1view DX Chest 1view DX 08/22/2017 [facility] CLINICAL HISTORY:resp failure - . [...] IMPRESSION: Interval increase in bibasilar consolidation. SL: [id number] Chest 1view DX PROCEDURE: Chest, AP on 08/21/2017 at 0201 hours. 08/21/2017 [facility] INDICATION: Respiratory failure. COMPARISON: Chest [...] pulmonary infiltrates, pneumonia. Decreased lung volumes. SL: [id number] Chest 1view DX 1 VIEW CXR. PORTABLE EXAM 4:02 PM 08/20/2017 [facility] HISTORY: Intubation. COMPARISON: None. Tip [...] pneumonia or atelectasis.. END OF IMPRESSION : [id number] Consultation Notes No Data Provided for This Section Discharge Summaries No Data Provided for This Section History and Physicals No Data Provided for This Section Vital Signs Vital Sign Value Date Comments Source Systolic (mm Hg) 94 08/28/2017 [facility] t Diastolic (mm Hg) 62 08/28/2017 [facility] Respitory Rate 18 08/28/2017 [facility] Heart Rate 73 08/28/2017 [facility] Temperature Oral (F) 97.5 F 08/28/2017 [facility] Temperature Oral (F) 98.2 F 08/28/2017 [facility] Heart Rate 59 08/28/2017 [facility] Respitory Rate 18 08/28/2017 [facility] Systolic (mm Hg) 97 08/28/2017 [facility] Diastolic (mm Hg) 60 08/28/2017 [facility] Temperature Oral (F) 98.7 F 08/28/2017 [facility] Systolic (mm Hg) 91 08/28/2017 [facility] t Diastolic (mm Hg) 60 08/28/2017 [facility] Heart Rate 57 08/28/2017 [facility] Respitory Rate 18 08/28/2017 [facility] Height 167.64 cm 08/24/2017 [facility] Height 167.64 cm 08/24/2017 [facility] Height 167.64 cm 08/24/2017 [facility] BMI Calculated 31.85 08/20/2017 [facility] Weight 89.5 08/20/2017 [facility] Encounters Location Location Encounter Encounter Reason Attending ADM DC Stat us Source Details Type Number For Provider Date Date Visit [facility] Inpatient [id number] Daniel 08/20 08/28 Agustín Pierre /2017 [facility] Procedures No Data Provided for This Section Assessment and Plan Assessment and Plan Date Source Extracted from:Title: Progress Note 08/28/2017 [facility] Author: Hal Thompson MD Date: 08/27/17 1.Acute respiratory failure with hypoxia - Patient afebrile at [place] ED with procal only .27 - Has [...] history of drug use per notes at [place] in addition to rapid recovery here, believe [...] BID 6.Coronary artery disease - History of [place] in past, pt reports having angioplasty with out stent - Will start ASA and statin Lovenox Inpatient Hal Thompson MD Family Medicine Gimp [employer]acker, PGY 1 #MSO [id number] Addendum by Daniel Pierre MD on 08/29/2017 12:31 CDT I was physically present during the [place] portions of the patient evaluation and the medical decision making when performed by the resident and I concur with the above documented decisions made by the team under my guidance. Extracted from:Title: [facility] Critical Care History and Physica l Author: Yossi Wilson DRUG REGULATORY AFFAIRS SPECIALIST Date: 08/20/17 Patient: LINCOLN KNIGHT Age: 46 years Sex: Female : 1970 Associated Diagnoses: None Author: Yossi Wilson DRUG REGULATORY AFFAIRS SPECIALIST Hosp Day # 1 ICU Day # 1 Vent Day # 1 24 hour Significant Events: Dyspnea Today's Plan/Goals: - Vent management - Titrate NE for MAP > 65 - Stovall-culture - Comprehensive labs HPI: This is a 46-YO woman w/ PMH HTN, NV, MR pneumonia, THC abuse sent to [facility] by EMS after son found her unresponsive, had trouble breathing. According to HPI from [place], Patient co mplained of chest discomfort prior to be coming unconscious. EMS found patient cynotic and cold, intubated patient on sence. The initial workup at [place] found patient has pneumonia. Of note, patient was discharged 2 days prior to hospital adm ission from [facility] for MRSA pneumonia. All medical history obtained from [facility] medical records due to patient's is [...] History Date Source Social History TypeResponse 08/21/2017 [facility] Smoking Status Unknown if ever smoked; Exposure to Toba cut tobacco bulker Smoke Unable to obtain; Cigarette Smoking Last 365 Days Unable to obtain; Reg Smoking Cessation Counseling Yes entered on: 08/20/17 Family History No Data Provided for This Section Advance Directives No Data Provided for This Section Functional Status No Data Provided for This Section
--- NOTE | 2020-07-03 16:21 | ER ---
Nurse's Notes [facility] Name: Raiza Whaley Age: 49 yrs Sex: Female : 1970 Arrival Date: 07/03/2020 Time: 14:43 Bed 11 Private MD: Diagnosis: Other local infections of skin and subcutaneous tissue-chest and left knee Presentation: 07/03 14:48 Chief complaint: Patient states: Abscess to L knee for 2 weeks. Abscess to mid abdomen ll1 for 3 days. No drainage or fever. Coronavirus screen: Client denies travel out of the [place] in the last 14 days. At this time, the client does not indicate any symptoms associated with coronavirus-19. Ebola Screen: Patient denies travel to an Ebola-affected area in the 21 days before illness onset. Initial Sepsis Screen: Does the patient meet any 2 criteria? No. Patient's initial sepsis screen is negative. Does the patient have a suspected source of infection? Yes: Skin breakdown/wound. Risk Assessment: Do you want to hurt yourself or someone else? Patient reports no desire to harm self or others. Onset of symptoms was June 18, 2020. 14:48 Method Of Arrival: Wheelchair ll1 14:48 Acuity: PATRIZIA 4 ll1 Triage Assessment: 19:04 General: Behavior is calm, cooperative, appropriate for age. 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 - Social history:: Smoking status: Patient reports the use of cigarette tobacco products, smokes one-half pack cigarettes per day. Screenin:04 Abuse screen: Denies threats or abuse. Denies injuries from another. Nutritional screening: No deficits noted. Tuberculosis screening: No symptoms or risk factors identified. Fall Risk None identified. Assessment: 19:04 General: Appears in no apparent distress. Pain: Denies pain. Derm: Wound noted left knee. Vital Signs: 14:48 BP 110 / 78; Pulse 87; Resp 16; Temp 97.3; Pulse Ox 97% ; Weight 86.18 kg; Height 5 ft. ll1 6 in. (167.64 cm); Pain 6/10; 14:48 Body Mass Index 30.67 (86.18 kg, 167.64 cm) ll1 ED Course: 14:43 Patient arrived in ED. ds1 14:51 Triage completed. ll1 14:51 Arm band placed on. ll1 17:20 states she went upstairs to see a friend. Still wants to be seen. ll1 17:48 Bhupinder Kahn PA is PHCP. cp 17:48 Guanako Kelly MD is Attending Physician. cp 19:04 Patient has correct armband on for positive identification. 19:04 No provider procedures requiring assistance completed. Patient did not have IV access during this emergency room visit. Administered Medications: No medications were administered Outcome: 16:20 Patient left the ED. ll1 18:17 Discharge ordered by MD. cp 19:05 Discharged to home ambulatory, with family. 19:05 Condition: stable 19:05 Discharge instructions given to patient, family, Instructed on discharge instructions, follow up and referral plans. medication usage, wound care, POC Demonstrated understanding of instructions, follow-up care, medications, wound care, POC Prescriptions given X 2. 19:05 Patient left the ED. Signatures: Arabella Caceres ds1 Francesca Joaquin, RN RN Bhupinder Nassar PA PA cp Habalo, Winsy, RN RN Jasper Cornejo RN RN 1 Corrections: (The following items were deleted from the chart) 19:22 17:55 Francesca Joaquin RN is Primary Nurse. aa5 aaMelvina
[2020-07-03 16:48] VITALS: BP 110/78; TEMP 97.3; O2SAT 97
--- NOTE | 2020-07-03 18:18 | EDPHYS ---
Physician Documentation [facility] Name: Raiza Whaley Age: 49 yrs Sex: Female : 1970 Arrival Date: 07/03/2020 Time: 14:43 Bed 11 Private MD: ED Physician Guanako Kelly HPI: 07/03 18:10 This 49 yrs old Female presents to ER via Wheelchair with complaints of cp Abscess. 18:10 The patient's rash thought to be caused by an unknown cause. The rash is located on the cp chest and below left knee. The rash can be described as erythematous, tender. 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 - Social history:: Smoking status: Patient reports the use of cigarette tobacco products, smokes one-half pack cigarettes per day. ROS: 18:13 Constitutional: Negative for body aches, chills, fever. cp 18:13 Skin: Positive for rash, of the chest and left knee. cp 18:13 All other systems are negative. Exam: 18:15 Constitutional: The patient appears in no acute distress, alert, awake, non-toxic, well cp developed, well nourished. 18:15 Head/Face: Normocephalic, atraumatic. cp 18:15 Chest/axilla: Inspection: normal. 18:15 Cardiovascular: Rate: normal. 18:15 Respiratory: the patient does not display signs of respiratory distress, Respirations: normal, no use of accessory muscles, no retractions, labored breathing. 18:15 Skin: areas of well circumscribed erythema and tenderness noted lower sternal area and below patella anterior left knee. minimal swelling, no induration, negative for abscess. Vital Signs: 14:48 BP 110 / 78; Pulse 87; Resp 16; Temp 97.3; Pulse Ox 97% ; Weight 86.18 kg; Height 5 ft. ll1 6 in. (167.64 cm); Pain 6/10; 14:48 Body Mass Index 30.67 (86.18 kg, 167.64 cm) ll1 MDM: 17:54 Patient medically screened. cp 18:12 Data reviewed: vital signs, nurses notes, and as a result, I will discharge patient. cp 18:12 Differential diagnosis: tinea abscess, cellulitis, insect bite. cp 18:17 Counseling: I had a detailed discussion with the patient and/or guardian regarding: the cp historical points, exam findings, and any diagnostic results supporting the discharge/admit diagnosis, to return to the emergency department if symptoms worsen or persist or if there are any questions or concerns that arise at home. Administered Medications: No medications were administered Disposition: 18:20 Chart complete. cp Disposition: 07/03/20 18:17 Discharged to Home. Impression: Other local infections of skin and subcutaneous tissue - chest and left knee. - Condition is Stable. - Discharge Instructions: Staphylococcal Infection. - Prescriptions for Bactroban 2 % Topical Ointment - Apply to affected area 1 application by TOPICAL route every 12 hours; 15 gram. Doxycycline Hyclate 100 mg Oral Tablet - take 1 tablet by ORAL route every 12 hours; 20 tablet. - Medication Reconciliation Form, Thank You Letter, Antibiotic Education, Prescription Opioid Use form. - Follow up: Private Physician; When: 2 - 3 days; Reason: Worsening of condition. - Problem is new. - Symptoms are unchanged. Addendum: 07/05/2020 07:04 Co-signature as Attending Physician, Guanako Kelly MD. r n Signatures: Guanako Kelly MD MD rn Page, Corey, PA PA Sundar Hernandez RN RN wh Lewis, Lynsay, RN RN ll1 Corrections: (The following items were deleted from the chart) 07/03 17:50 16:20 07/03/2020 16:20 Patient left the facility post triage evaluation and consult. ll1 Reason stated they are leaving due to unknown. ll1 19:05 18:17 07/03/2020 18:17 Discharged to Home. Impression: Other local infections of skin wh and subcutaneous tissue - chest and left knee. Condition is Stable. Forms are Medication Reconciliation Form, Thank You Letter, Antibiotic Education, Prescription Opioid Use. Follow up: Private Physician; When: 2 - 3 days; Reason: Worsening of condition. Problem is new. Symptoms are unchanged. cp
== END 2020-07-03 19:05 | disposition home or self-care (01) ==
LOC: ER 14:39
DX: L08.9 Local infection of the skin and subcutaneous tissue, unspecified (principal); I10 Essential (primary) hypertension; N17.9 Acute kidney failure, unspecified; F17.210 Nicotine dependence, cigarettes, uncomplicated
CPT/HCPCS: 99282

== ENCOUNTER 2021-06-03 12:45 | Inpatient (IN) | payer SELFPAY ==
[2021-06-03 13:18] LABS: Protime INR 0.93
[2021-06-03] MEDS ORDERED: MORPHINE 4 MG/ML SYR ONE (13:28)
[2021-06-03] MEDS ORDERED: ONDANSETRON 4 MG/2 ML VIAL ONE (13:29)
[2021-06-03 13:30] LABS: Absolute Lymphocytes (CBC) 0.9 K/uL (0.7-4.9); Hematocrit 52.9 % (36.0-45.0); Lymphocytes % 12.3 % (15.3-44.8); MPV 8.7 fL (7.6-11.3); RBC Red Blood Cell Count 4.85 M/uL (3.86-4.86)
[2021-06-03 13:42] LABS: ALT/SGPT 139 U/L (12-78); Albumin 3.1 g/dL (3.4-5.0); Alkaline Phosphatase 110 U/L (45-117); BUN Blood Urea Nitrogen 17 mg/dL (7-18); Bicarbonate 25 mmol/L (21-32); Bilirubin Direct < 0.1 mg/dL (0-0.2); Bilirubin Total 0.5 mg/dL (0.2-1.0); Glucose Level 130 mg/dL (74-106); NT PRO-BNP 48 pg/mL (<125); Sodium Level 136 mmol/L (136-145)
[2021-06-03 13:43] LABS: AST/SGOT 100 U/L (15-37); Magnesium 2.3 mg/dL (1.8-2.4); Potassium 4.3 mmol/L (3.5-5.1)
--- NOTE | 2021-06-03 13:48 | RAD REPORT ---
EXAM DESCRIPTION: RAD - Chest Single View - 06/03/2021 1:32 pm CLINICAL HISTORY: CHEST PAIN COMPARISON: Chest Single View dated 08/30/2017; Chest Single View dated 08/15/2017; Chest Single View d ated 08/14/2017; Chest Single View dated 08/13/2017 FINDINGS: Lines: None. Lungs: No evidence of edema or pneumonia. Hazy opacification of the lung bases favored to be related to underpenetration due to body habitus. Pleural: No significant pleural effusions or pneumothorax. Cardiac: The heart size is within normal limits. Bones: No acute fractures. Other: IMPRESSION: No acute cardiopulmonary disease.
--- NOTE | 2021-06-03 14:43 | RAD REPORT ---
EXAM DESCRIPTION: US - Extremity Venous Uni Ltd - 06/03/2021 2:01 pm CLINICAL HISTORY: Swelling COMPARISON: None. TECHNIQUE: Real-time sonographic evaluation of the right lower extremity deep venous system was perf ormed. FINDINGS: Normal compressibility, flow augmentation, phasic flow and spontaneous flow is identified in the right lower extremity deep venous system. No intraluminal filling defects seen. IMPRESSION: No DVT in the right lower extremity.
--- NOTE | 2021-06-03 15:18 | EDPHYS ---
Physician Documentation [facility] Name: Raiza Whaley Age: 50 yrs Sex: Female : 1970 Arrival Date: 06/03/2021 Time: 12:55 Bed 7 Private MD: ED Physician Guanako Kelly HPI: 06/03 13:17 This 50 yrs old Female presents to ER via EMS with complaints of Chest pain. rn 13:17 The patient or guardian reports chest pain that is located primarily in the substernal rn area. Onset: this morning. The pain radiates to the left arm. Associated signs and symptoms: Pertinent positives: shortness of breath, Pertinent negatives: abdominal pain, cough, syncope. The chest pain is described as a pressure. Duration: The patient or guardian reports multiple episodes, that are intermittent. Modifying factors: The symptoms are alleviated by nothing. the symptoms are aggravated by nothing. Severity of pain: At its worst the pain was moderate in the emergency department the pain is unchanged. The patient has experienced similar episodes in the past. The patient has been recently seen by a physician:. Patient reports chest pain that began this morning, took 1 nitro and did not help, sometimes has to take 2 nitroglycerin for alleviation of pain but did not have any more so called 911. Denies any recent illness. Denies fever or cough. Does report mild shortness of breath. Also points out that the right leg has been swollen for the last 3 weeks. No history of DVT or PE. No trauma. Reports this does not feel as bad as last time when had a heart attack. 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 - Social history:: Smoking status: Smoking status: Patient reports the use of cigarette tobacco products, smokes one-half pack cigarettes per day, Patient uses street drugs, marijuana. - Family history:: not pertinent. - Hospitalizations: : No recent hospitalization is reported. ROS: 13:17 Constitutional: Negative for fever, chills, and weight loss, Eyes: Negative for injury, rn pain, redness, and discharge, Neck: Negative for injury, pain, and swelling, Cardiovascular: Negative for palpitations, and edema, Respiratory: Negative for cough, wheezing, and pleuritic chest pain, Abdomen/GI: Negative for abdominal pain, nausea, vomiting, diarrhea, and constipation, Back: Negative for injury and pain, : Negative for injury, bleeding, discharge, and swelling, MS/Extremity: Positive swelling of right leg Skin: Negative for injury, rash, and discoloration, Neuro: Negative for headache, weakness, numbness, tingling, and seizure. Exam: 13:17 Constitutional: This is a well developed, well nourished patient who is awake, alert, rn and in no acute distress. Appears disheveled Head/Face: Normocephalic, atraumatic. Eyes: Periorbital areas with no swelling, redness, or edema. Cardiovascular: Regular rate and rhythm. No pulse deficits. Respiratory: No increased work of breathing, no retractions or nasal flaring. Abdomen/GI: Soft, non-tender Skin: Warm, dry MS/ Extremity: Pulses equal, no cyanosis. Right lower extremity with increased circumference compared to left lower extremity Neuro: Awake and alert, GCS 15 Vital Signs: 13:14 BP 119 / 81; Pulse 88; Resp 18; Pulse Ox 93% on R/A; ic1 13:25 Temp 98.2; Weight 99.79 kg; Height 5 ft. 6 in. (167.64 cm); Pain 8/10; jl7 13:40 BP 125 / 85; Pulse 92; Resp 15; Pulse Ox 95% ; jl7 14:30 BP 110 / 74; Pulse 89; Resp 15; Pulse Ox 96% on 2 lpm NC; jl7 15:15 BP 118 / 91; Pulse 93; Resp 17; Pulse Ox 91% ; jl7 18:08 BP 100 / 73; Pulse 96; Resp 16; Pulse Ox 93% ; ic1 18:38 BP 110 / 92; ic1 13:25 Body Mass Index 35.51 (99.79 kg, 167.64 cm) jl7 MDM: 13:05 Patient medically screened. rn 15:15 Differential diagnosis: acute myocardial infarction, acute pericarditis, anxiety, rn coronary artery disease chest wall pain, congestive heart failure pleurisy, pneumonia, pneumothorax, pulmonary embolus, DVT. The patient was not given aspirin in the Emergency Department. Administered by EMS. Data reviewed: vital signs, nurses notes. Data reviewed: lab test result(s), EKG, radiologic studies, doppler, plain films, and as a result, I will admit patient. Counseling: I had a detailed discussion with the patient and/or guardian regarding: the historical points, exam findings, and any diagnostic results supporting the discharge/admit diagnosis, lab results, radiology results, the need for further work-up and treatment in the hospital. Response to treatment: the patient's symptoms have mildly improved after treatment, and as a result, I will admit patient. Admission orders: after a detailed discussion of the patient's condition and case, the admit orders are written by me. ED course: Patient with nonspecific ECG, negative troponin, still complains of chest pain. DVT study negative. CT PE pending. Given history of previous cardiac arrest and [place], will observe for serial troponin and cardiology consultation.. 06/03 13:04 Order name: Basic Metabolic Panel; Complete Time: 14:34 06/03 13:04 Order name: CBC with Diff; Complete Time: 14:34 06/03 13:04 Order name: LFT's; Complete Time: 14:34 06/03 13:04 Order name: Magnesium; Complete Time: 14:34 06/03 13:04 Order name: NT PRO-BNP; Complete Time: 14:34 06/03 13:04 Order name: PT-INR; Complete Time: 14:34 06/03 13:04 Order name: Troponin HS; Complete Time: 14:34 06/03 13:38 Order name: SARS-COV-2 RT PCR; Complete Time: 14:34 [facility] 06/03 21:11 Order name: Troponin High Sensitivity [facility] 06/03 21:14 Order name: Procalcitonin [facility] 06/03 21:23 Order name: Glucose, Ancillary Testing [facility] 06/04 01:32 Order name: Troponin High Sensitivity [facility] 06/04 02:49 Order name: C-Reactive Protein [facility] 06/03 13:04 Order name: XRAY Chest (1 view); Complete Time: 14:34 06/03 13:10 Order name: Extremity Venous Uni Ltd US; Complete Time: 14:51 rn 06/03 14:51 Order name: CT Chest For PE Angio rn 06/03 16:17 Order name: CT Abd/Pelvis - IV Contrast Only rn 06/03 17:09 Order name: CT; Complete Time: 18:30 EDMS 06/03 17:15 Order name: CT; Complete Time: 18:30 EDMS 06/04 05:28 Order name: CBC with Automated Diff EDMS 06/04 05:53 Order name: Manual Differential EDMS 06/04 07:25 Order name: Comprehensive Metabolic Panel EDMS 06/04 07:25 Order name: Troponin High Sensitivity EDMS 06/04 07:25 Order name: Lipid Profile EDIN 06/04 07:25 Order name: T4 Free EDIN 06/04 07:25 Order name: Magnesium EDMS 06/04 07:25 Order name: Thyroid Stimulating Hormone EDMS 06/04 10:42 Order name: Glucose, Ancillary Testing EDIN 06/03 13:04 Order name: EKG; Complete Time: 13:05 06/03 13:04 Order name: Cardiac monitoring; Complete Time: 13:23 06/03 13:04 Order name: EKG - Nurse/Tech; Complete Time: 13:13 06/03 13:04 Order name: IV Saline Lock; Complete Time: 13:23 06/03 13:04 Order name: Labs collected and sent; Complete Time: 13:13 06/03 13:04 Order name: O2 Per Protocol; Complete Time: 13:13 06/03 13:04 Order name: O2 Sat Monitoring; Complete Time: 13:13 06/03 16:11 Order name: CONS Physician Consult EDIN Administered Medications: 13:30 Drug: morphine 4 mg Route: IVP; Site: right forearm; jl7 14:00 Follow up: Response: No adverse reaction; Pain is decreased jl7 13:30 Drug: Zofran (Ondansetron) 4 mg Route: IVP; Site: right forearm; jl7 15:58 Follow up: Response: No adverse reaction jl7 Disposition Summary: 06/03/21 15:17 Hospitalization Ordered Hospitalization Status: Observation rn Provider: Jaron Kelly rn Condition: Stable rn Problem: new rn Symptoms: have improved rn Bed/Room Type: Standard rn Location: Telemetry/MedSurg (observation)(06/04/21 10:14) bd Room Assignment: 228(06/04/21 10:14) bd Diagnosis - Chest pain, unspecified rn - Dyspnea, unspecified rn - Pulmonary embolism without acute cor pulmonale rn Forms: - Medication Reconciliation Form rn - SBAR form rn Signatures: Dispatcher [employer] EDIN Emely Shearer Guanako Kelly MD MD rn Smirch, Shelby RN RN Christi Shore RN RN Angela Ingram RN RN jl7 Angela Hooper RN RN ic1 Corrections: (The following items were deleted from the chart) 13:38 13:06 CORONAVIRUS+MR.LAB.BRZ ordered. [facility] 15:17 Telemetry/MedSurg (observation) [facility] : 15:17 rn 06/04 10:14 06/03 22:29 [facility] ER HOLD bd 06/04 10:14 06/03 22:29 ERHOLD- [facility]
--- NOTE | 2021-06-03 15:18 | ER ---
Nurse's Notes [facility] Name: Raiza Whaley Age: 50 yrs Sex: Female : 1970 Arrival Date: 06/03/2021 Time: 12:55 Bed 7 Private MD: Diagnosis: Chest pain, unspecified;Dyspnea, unspecified;Pulmonary embolism without acute cor pulmonale Presentation: 06/03 13:14 Chief complaint:. Chief complaint: EMS states: brought in pt for c/o cp since this AM ic1 that radiates to the L arm. 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 Ebola Screen: No symptoms or risks identified at this time. Initial Sepsis Screen: Does the patient meet any 2 criteria? No. Patient's initial sepsis screen is negative. Does the patient have a suspected source of infection? No. Patient's initial sepsis screen is negative. Risk Assessment: Do you want to hurt yourself or someone else? Patient reports no desire to harm self or others. Onset of symptoms was June 03, 2021. 13:14 Method Of Arrival: EMS ic1 13:14 Acuity: PATRIZIA 2 ic1 Triage Assessment: 13:17 General: Appears in no apparent distress. Behavior is calm, cooperative. Pain: ic1 Complains of pain in chest and left arm. 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 - Social history:: Smoking status: Smoking status: Patient reports the use of cigarette tobacco products, smokes one-half pack cigarettes per day, Patient uses street drugs, marijuana. - Family history:: not pertinent. - Hospitalizations: : No recent hospitalization is reported. Screenin:00 Abuse screen: Denies threats or abuse. Denies injuries from another. Nutritional jl7 screening: No deficits noted. Tuberculosis screening: No symptoms or risk factors identified. Fall Risk IV access (20 points). Total Adams Fall Scale indicates No Risk (0-24 pts). Assessment: 13:00 General: Appears in no apparent distress. uncomfortable, Behavior is calm, cooperative, jl7 appropriate for age. Pain: Complains of pain in left breast Pain radiates to left arm Pain currently is 8 out of 10 on a pain scale. Quality of pain is described as pressure, Pain began x 3 months, worse today Is intermittent. Neuro: Level of Consciousness is awake, alert, obeys commands, Oriented to person, place, time, situation. Cardiovascular: Patient's skin is warm and dry. Rhythm is regular. Respiratory: Airway is patent Respiratory effort is even, unlabored, Respiratory pattern is regular, symmetrical, Denies shortness of breath. EENT: Oral mucosa is dry. Poor dentition noted. Derm: Skin is dry, Skin is pale, Skin temperature is warm. 14:00 Reassessment: Patient appears in no apparent distress at this time. No changes from jl7 previously documented assessment. Patient and/or family updated on plan of care and expected duration. Pain level reassessed. Patient is alert, oriented x 3, equal unlabored respirations, skin warm/dry/pink. Patient states feeling better. Patient states symptoms have improved. 15:00 Reassessment: Patient appears in no apparent distress at this time. No changes from jl7 previously documented assessment. Patient and/or family updated on plan of care and expected duration. Pain level reassessed. Patient is alert, oriented x 3, equal unlabored respirations, skin warm/dry/pink. 15:57 Reassessment: Dr. Kelly, hospitalist, at bedside assessing pt. jl7 16:17 Reassessment: Pt transported to CT via stretcher while on O2 via NC. ic1 Vital Signs: 13:14 BP 119 / 81; Pulse 88; Resp 18; Pulse Ox 93% on R/A; ic1 13:25 Temp 98.2; Weight 99.79 kg; Height 5 ft. 6 in. (167.64 cm); Pain 8/10; jl7 13:40 BP 125 / 85; Pulse 92; Resp 15; Pulse Ox 95% ; jl7 14:30 BP 110 / 74; Pulse 89; Resp 15; Pulse Ox 96% on 2 lpm NC; jl7 15:15 BP 118 / 91; Pulse 93; Resp 17; Pulse Ox 91% ; jl7 18:08 BP 100 / 73; Pulse 96; Resp 16; Pulse Ox 93% ; ic1 18:38 BP 110 / 92; ic1 13:25 Body Mass Index 35.51 (99.79 kg, 167.64 cm) jl7 ED Course: 12:55 Patient arrived in ED. ic1 13:00 Patient has correct armband on for positive identification. Placed in gown. Bed in low jl7 position. Call light in reach. Side rails up X2. nurse monitoring on. Pulse ox on. NIBP on. Warm blanket given. 13:05 Guanako Kelly MD is Attending Physician. rn 13:13 Basic Metabolic Panel Sent. ic1 13:13 CBC with Diff Sent. ic1 13:13 LFT's Sent. ic1 13:13 Magnesium Sent. ic1 13:13 NT PRO-BNP Sent. ic1 13:13 PT-INR Sent. ic1 13:13 Troponin HS Sent. ic1 13:14 Angela Hooper, RN is Primary Nurse. ic1 13:17 Triage completed. ic1 13:17 Arm band placed on right wrist. ic1 13:24 Initial lab(s) drawn, by ED staff, sent to lab. EKG done, by ED staff, reviewed by ene Kelly MD COVID swab sent to lab. Inserted saline lock: 22 gauge in right forearm, using aseptic technique. 13:32 XRAY Chest (1 view) In Process Unspecified. EDMS 14:01 Extremity Venous Uni Ltd US In Process Unspecified. EDMS 15:17 Jaron Kelly MD is Hospitalizing Provider. rn 17:56 Door closed. Noise minimized. Diet tray given. Head of bed Elevated. ic1 19:02 CT Abd/Pelvis - IV Contrast Only Sent. ic1 06/04 08:06 Primary Nurse role handed off by Angela Hooper, ARTEM 08:30 Dilip Alfredo, ARTEM is Primary Nurse. bp Administered Medications: 06/03 13:30 Drug: morphine 4 mg Route: IVP; Site: right forearm; jl7 14:00 Follow up: Response: No adverse reaction; Pain is decreased jl7 13:30 Drug: Zofran (Ondansetron) 4 mg Route: IVP; Site: right forearm; jl7 15:58 Follow up: Response: No adverse reaction [facility] Outcome: 15:17 Decision to Hospitalize by Provider. rn 06/04 11:38 Patient left the ED. ph Signatures: Dispatcher [employer] EDMS Emely Shearer Roman, MD MD rn Renetta Albrecht RN RN Angela Hurtado RN RN jl7 Dilip Alfredo, RN RN Angela Hooper RN RN ic1
--- NOTE | 2021-06-03 16:20 | P.HP ---
Certification for Inpatient Patient admitted to: Inpatient With expected LOS: >2 Midnights Practitioner: I am a practitioner with admitting privileges, knowledge of patient current condition, hospital course, and medical plan of care. Services: Services provided to patient in accordance with Admission requirements found in Title 42 Section 412.3 of the Code of Federal Regulations Patient History Date of Service: 06/03/21 Reason for admission: SOB, chest pain, COPD History of Present Illness: 50yo F, PMH: DC, HPV, COPD, smoker Presents to ED due to worsening chest pain over the last few days. Has had chest pain since her DC, takes nitroglycerin daily which helps. Pain has been worse, is squeezing in nature, substernal, no radiation. Associated with increased shortness of breath, R leg swelling over the last 3 weeks. Feels she has been wheezing more than usual lately. Continues to smoke 1ppd. Denies n/v, no dysuria, no new numb/tingling, denies any rashes/lesions. In the ED, she was noted to be short of breath, mildly elevated LFTs, and tachycardic. ED physician requests admission for further evaluation / management. Allergies No Known Allergies Allergy (Unverified 08/13/17 11:16) Home Medications: Clopidogrel Bisulfate [Plavix*] 75 mg PO DAILY 08/30/17 - Past Medical/Surgical History Diabetic: Yes -: Anxiety disorder -: Diabetes mellitus -: CAD -: Hyperlipidemia -: ARF -: CHF -: COPD -: HTN -: Afib -: DC -: adhesion removal -: tubal ligation -: Heart cath Psychosocial/ Personal History: Unable to be obtained, patient lives at [facility] - Family History Mother -: Lung disease, Cancer Notes: CA and COPD Father -: Diabetes, Stroke - Social History Smoking Status: Current every day smoker Alcohol use: Yes CD- Drugs: No Caffeine use: Yes Place of Residence: Home Review of Systems 10-point ROS is otherwise unremarkable Physical Examination - Physical Exam General: Alert, Oriented x3, Acute distress (uncomfortable, mild tachypnea) HEENT: Sclerae nonicteric Respiratory: Diminished, Expiratory wheezes Cardiovascular: Edema (RLE: 1-2+ up to knee) Gastrointestinal: Soft and benign, Non-distended, No tenderness Musculoskeletal: No tenderness Integumentary: Rash(es) (erythematous rash in R groin / vulva, with minimal extension to left groin) Neurological: Normal speech, Normal affect - Studies Laboratory Data (last 24 hrs) 06/03/21 13:09: SARS-CoV-2 Rap RNA(RT-PCR) Negative 06/03/21 13:06: PT 10.7, INR 0.93 06/03/21 13:06: WBC 7.00, RBC 4.85, Hgb 17.1 H, Hct 52.9 H, MCV 108.9 H, MCH 35 .2 H, MCHC 32.4, RDW 14.7, Plt Count 161, MPV 8.7, Neutrophils % 77.8 H, Lymphocytes % 12.3 L, Monocytes % 7.1, Eosinophils % 2.5, Basophils % 0.3, Absolute Neutrophils 5.4, Absolute Lymphocytes 0.9, Absolute Monocytes 0.5, Absolute Eosinophils 0.2, Absolute Basophils 0.0 06/03/21 13:06: Sodium 136, Potassium 4.3, Chloride 106, Carbon Dioxide 25, BUN 17, Creatinine 0.90, Estimated GFR 66 L, Glucose 130 H, Calcium 10.1, Magnesium 2.3, Total Bilirubin 0.5, Direct Bilirubin < 0.1, AST 100 H, ALT 139 H, Alkaline Phosphatase 110, Troponin I High Sens 9.60, NT-Pro-B Natriuret Pep 48, Serum Total Protein 8.0, Albumin 3.1 L, Globulin 4.9 H, Albumin/Globulin Ratio 0.6 L Assessment and Plan - Advance Directives Does patient have a Living Will: No Does patient have a Durable POA for Healthcare: No Physician Review Additional Text: Problem list Chest pain, possible unstable angina Acute hypoxemic respiratory failure secondary to suspected acute COPD exacerbation RLE swelling Intertrigo of groin CAD, h/o DC DM2 depression/anxiety Some of her medical history is obtained through the chart. She states that she "does not think "that she has COPD or diabetes, despite being told she has this previously. Denies any history of atrial fibrillation. Will bring patient in, trend troponin, cardiac monitoring. Cardiology consulted given her significant history and feeling like squeezing chest pain Patient is tachypneic, tachycardic, and feels short of breath on exam. Wheezing as well, suspect COPD exacerbation, cannot rule out PE steroids, nebs, O2 as needed CT PE protocol of her chest, CT abdomen/pelvis ordered/pending Aspirin, beta-marcelina cardiology consulted Nystatin powder to groin Insulin sliding scale Will obtain further labs Unclear etiology of RLE swelling, its only unilateral. Bilateral legs are similar temperature Right groin is worse regarding the fungal intertrigo infection. CT abdomen/pelvis may find etiology Need to confirm home medications and restart as appropriate VTE: lovenox Code: full Dispo: anticipate hospitalization > 2 days Time Spent Managing Pts Care (In Minutes): 60
[2021-06-03] MEDS ORDERED: ONDANSETRON 4 MG/2 ML VIAL IV PRN (16:27)
[2021-06-03] MEDS ORDERED: NITROGLYCERIN 0.4 MG/TAB SL PRN (16:27)
[2021-06-03] MEDS ORDERED: ALBUTEROL 2.5 MG/3 ML NEB SOL NEB PRN (16:27)
--- NOTE | 2021-06-03 17:08 | RAD REPORT ---
EXAM DESCRIPTION: CT - Chest For Pe Angio - 06/03/2021 4:37 pm CLINICAL HISTORY: Chest pain;Dyspnea COMPARISON: No comparisons FINDINGS: Chest Wall: No suspicious thyroid nodules or pathologic lymphadenopathy. Lungs: Emphysema. Scattered peripheral consolidative airspace disease. Pleura: No significant effusions or pneumothorax. Mediastinum/frank: No pathologic lymphadenopathy. Pulmonary arteries/Aorta: Limited by motion. Several subsegmental filling defects noted in the lower lungs and lingula. No aortic aneurysm. Heart: No significant pericardial effusion. Normal heart size. Coronary artery calcifications . Upper abdomen: No acute abnormality. Bones: No acute abnormality. All CT scans are performed using dose optimization technique as appropriate and may include automated exposure control or mA/KV adjustment according to patient size. IMPRESSION: Bilateral subsegmental filling defects which could represent pulmonary emboli. Some limi tation is present due to motion. A few small areas of peripheral consolidation noted which could repr esent pneumonia, or less likely pulmonary infarcts.
--- NOTE | 2021-06-03 17:14 | RAD REPORT ---
EXAM DESCRIPTION: CTAbdomen Pelvis W Contrast - 06/03/2021 4:37 pm CLINICAL HISTORY: right leg swelling, eval for compressive symptoms COMPARISON: Stone Protocol dated 08/16/2017 TECHNIQUE: CT of the abdomen and pelvis was performed. All CT scans are performed using dose optimization technique as appropriate and may include automated exposure control or mA/KV adjustment according to patient size. FINDINGS: Lower chest: Reference chest CT Liver: No acute abnormality or suspicious lesions. Biliary: No biliary ductal dilatation. Stomach: No significant focal abnormality. Duodenum: No significant focal abnormality. Pancreas: No significant abnormality. Spleen: No significant abnormality. Adrenal: No suspicious lesions. Kidney/ureter: No hydronephrosis. No renal calculi. Bilateral renal lesions of varying complexity. Th ere are likely some bilateral hemorrhagic and/or proteinaceous cyst. History present on the prior CT. Retroperitoneum: No retroperitoneal adenopathy. Vascular: No aneurysm. Atherosclerosis . Stenosis at both iliac arteries. Bowel: No significant focal abnormality. Peritoneum: No ascites or free air. Bladder: Grossly unremarkable. Reproductive: No adnexal masses. Bones: No acute fracture. Other: n/a IMPRESSION: No acute intra-abdominal or pelvic finding. Incidental findings as noted above.
[2021-06-03] MEDS: ENOXAPARIN 100 MG/ML SYR SQ SCH (19:00)
[2021-06-03] MEDS ORDERED: ATORVASTATIN 20 MG TAB ONE (20:16)
[2021-06-03] MEDS ORDERED: ENOXAPARIN 100 MG/ML SYR SQ ONE (20:16)
[2021-06-03] MEDS ORDERED: predniSONE 20 MG TAB ONE (20:18)
[2021-06-03] MEDS: ATORVASTATIN 40 MG TAB PO SCH (20:20)
[2021-06-03] MEDS: predniSONE 20 MG TAB PO SCH (20:20)
[2021-06-03] MEDS: NYSTATIN PWDR 100000 UNIT/GM TOP SCH (20:21)
[2021-06-03] MEDS: IPRATROPIUM BROM 0.5MG/2.5ML NEB SCH (20:40)
[2021-06-03] MEDS ORDERED: IPRATROPIUM BROM 0.5MG/2.5ML ONE (20:54)
[2021-06-04] MEDS ORDERED: IPRATROPIUM BROM 0.5MG/2.5ML ONE ×2 (01:23→08:30)
[2021-06-04] MEDS: IPRATROPIUM BROM 0.5MG/2.5ML NEB SCH ×4 (01:42→20:40)
[2021-06-04 05:20] LABS: Absolute Lymphocytes (CBC) 0.4 K/uL (0.7-4.9); Hematocrit 49.6 % (36.0-45.0); Lymphocytes % 6.3 % (15.3-44.8); MPV 8.8 fL (7.6-11.3); RBC Red Blood Cell Count 4.52 M/uL (3.86-4.86)
[2021-06-04 05:53] LABS: Blood Morphology Comment NOTED (NOT SEEN); Macrocytosis 1+; Platelet Estimate ADEQ; Polychromasia 1+
[2021-06-04] MEDS: METOPROLOL TAR 25 MG TAB PO SCH ×2 (06:00→17:04)
--- NOTE | 2021-06-04 06:27 | P.PN ---
Date of Service: 06/04/21 Subjective: Patient refused nystatin powder overnight Refused to remain n.p.o., continued to eat and drink Continues with intermittent chest pain found roaming the ER, accidentally went into another patient's room ROS: 10 point ROS as noted above, otherwise negative Physical exam GEN: Alert, labored respirations HEENT: Poor dentition, suspect cavitary disease CV: Regular rate and rhythm, RLE Pulm: Diminished, expiratory wheeze bilaterally, slight crackles ABD: Soft, nontender, nondistended Integumentary: erythematous rash in R groin / vulva, with minimal extension to left groin Problem list Chest pain, possible unstable angina Acute hypoxemic respiratory failure secondary to suspected acute COPD exacerbation vs PE vs pulm infarct RLE swelling Intertrigo of groin CAD, h/o NH DM2 depression/anxiety Some of her medical history is obtained through the chart. Very poor historian, noncompliant Denies any history of atrial fibrillation. However chart review reveals she has a history of paroxysmal A. fib, COPD, diabetes. All which patient denies Cardiology consulted, for stress test this morning Exam concerning for COPD exacerbation, CT in the ED: Multiple small subsegmental PEs, concern for possible pulmonary infarct Continue Lovenox for anticoagulation through today, transition to p.o. tomorrow. Pending stress test results Pulmonology consulted, steroids, nebs, O2 as needed Aspirin, beta-marcelina Nystatin powder to groin -patient refused overnight, states she will refuse today Insulin sliding scale Unclear etiology of RLE swelling, its only unilateral. Bilateral legs are similar temperature Right groin is worse regarding the fungal intertrigo infection. Need to confirm home medications and restart as appropriate VTE: lovenox Code: full Dispo: anticipate hospitalization > 2 days Time Spent Managing Pts Care (In Minutes): 35
[2021-06-04 07:24] LABS: Albumin 2.9 g/dL (3.4-5.0); Bilirubin Total 0.4 mg/dL (0.2-1.0); Magnesium 2.5 mg/dL (1.8-2.4); Potassium 4.9 mmol/L (3.5-5.1); Protein, Total 7.3 g/dL (6.4-8.2); Thyroid Stimulating Hormone 0.451 uIU/mL (0.360-3.740); Troponin High Sensitivity 18.3 pg/mL (<58.9)
[2021-06-04] MEDS: INSULIN -REGULAR HUMAN 50 UNIT/0.5 ML ML SQ SCH ×4 (07:30→20:47)
[2021-06-04] MEDS ORDERED: REGADENOSON 0.4 MG/5 ML SYR IV ONE (07:59)
[2021-06-04] MEDS ORDERED: NA CHLORIDE 0.9% 1,000 ML IV SCH ×2 (08:00→14:16)
--- NOTE | 2021-06-04 08:04 | EKG ---
Test Date: 2021-06-03 Test Time: 12:50:38 Elevator Examiner: FERMIN MEASUREMENT RESULTS: Intervals: Rate: 90 [place]: 190 QRSD: 126 QT: 390 QTc: 477 [place]: P: 68 [place]: 190 QRS: -50 T: 48 INTERPRETIVE STATEMENTS: Normal sinus rhythm Left axis deviation Nonspecific intraventricular block Septal infarct, age undetermined Abnormal ECG Compared to ECG 08/30/2017 04:23:22 Incomplete right bundle-branch block no longer present Myocardial infarct finding still present Electronically Signed On 06-04-21 08:02:46 BANKING CONSULTANT by Justin Real
[2021-06-04] MEDS ORDERED: ALBUTEROL 2.5 MG/3 ML NEB SOL ONE (08:30)
[2021-06-04] MEDS: ENOXAPARIN 100 MG/ML SYR SQ SCH (09:00)
[2021-06-04] MEDS ORDERED: ENOXAPARIN 40 MG/0.4 ML SQ SCH (09:00)
[2021-06-04] MEDS ORDERED: AZITHROMYCIN IV 500 MG in NA CHLORIDE 0.9% 250 ML IVPB SCH (09:00)
[2021-06-04] MEDS ORDERED: CEFTRIAXONE 1,000 MG in NA CHLORIDE 0.9% 50 ML IVPB SCH (09:00)
--- NOTE | 2021-06-04 10:24 | CON ---
Date of Consultation: 06/04/2021 Reason For Consultation: Atypical chest pain. History Of Present Illness: Ms. Whaley is a 50-year-old woman with history of renal failure in the p ast, anxiety, atrial fibrillation that is paroxysmal, diastolic congestive heart failure, COPD, hyper tension, diabetes, coronary artery disease, history of pneumonia, rhabdomyolysis in the past, came in with atypical sharp stabbing chest pain, nonexertional, nonradiating. No nausea, vomiting, diaphore sis, PND, orthopnea, pedal edema, palpitations, or syncope. Workup negative except for mild elevatio n of liver function tests. CT and CTA showed possible pulmonary embolus or pulmonary infarct or pneu monia. Stress test is pending. Past Medical History: Negative. Allergies: NONE. Review of Systems: Negative. Social History: Negative. Family History: Negative. Medications: At home include Plavix. Physical Examination: Vital Signs: Blood pressure was 88/56. General: She is rather noncooperative, so currently taking history from her. No specific complaint, not too thrilled about having any workup at this point. HEENT: Negative. Neck: Supple with no bruit. Chest: Clear. Cardiac: Normal. Abdomen: Benign. Extremities: No clubbing, cyanosis, or edema. Diagnostic Data: As stated earlier. Impression And Plan: Atypical chest pain in a patient with diastolic congestive heart failure, coron wendy artery disease, multiple risk factors including diabetes, hypertension. She needs to have a stre ss test done before we can make any further plans. Her other problems including anxiety, paroxysmal atrial fibrillation, history of pneumonia, rhabdomyolysis, chronic obstructive pulmonary disease are stable at this point. I am concerned about her CT angiogram reports. She may need antibiotics. May need low-dose anticoagulation other than the Plavix. I will discuss the case further with Dr. Kelly . We will see what the stress test shows. NB/MODL Voice ID: [id number] Report ID: [id number]
[2021-06-04] MEDS: predniSONE 20 MG TAB PO SCH ×2 (10:35→20:47)
[2021-06-04] MEDS: ASPIRIN EC 81 MG TAB PO SCH (10:35)
[2021-06-04] MEDS ORDERED: ASPIRIN EC 81 MG TAB PO ONE (10:53)
[2021-06-04] MEDS ORDERED: CEFTRIAXONE 1000 MG/VIAL ONE (10:53)
[2021-06-04] MEDS ORDERED: NA CHLORIDE 0.9% 100 ML ONE (10:54)
[2021-06-04] MEDS ORDERED: ENOXAPARIN 100 MG/ML SYR SQ ONE (10:54)
[2021-06-04] MEDS ORDERED: predniSONE 20 MG TAB ONE (10:56)
[2021-06-04 11:48] VITALS: BMI 37.9
[2021-06-04] MEDS: NYSTATIN PWDR 100000 UNIT/GM TOP SCH ×2 (12:17→20:49)
--- NOTE | 2021-06-04 12:26 | RAD REPORT ---
EXAM DESCRIPTION: NM - Rest Stress Cardiac Imaging - 06/04/2021 10:42 am CLINICAL HISTORY: Chest pain COMPARISON: None. TECHNIQUE: The patient was administered 10.8 mCi of Tc 99m Sestamibi prior to resting SPECT imaging of the heart. The patient was then administered 31.6 mCi of Tc 99m Sestamibi following exercise or ph armacologic stress. Multiplanar SPECT images were reviewed. FINDINGS: The end diastolic volume is 50 ml, the end systolic volume is 10 ml, and the ejection frac tion is 80 %. Physiologic distribution of the radiopharmaceutical through the myocardium is noted. No stress induce d ischemic defect is seen to suggest stress induced ischemia. Decreased activity along the anterior w all at the apex, present on both rest and stress sequencing, is favored to be breast attenuation juan m fact rather than scarring. IMPRESSION: No stress-induced ischemic change seen. Small fixed defect anterior wall at the apex is more likely breast attenuation artifact than scarring . EDV 50 ml , ESV 10 ml and ejection fraction of 80% are normal range.
[2021-06-04 14:20] LABS: C-Reactive Protein 70.76
--- NOTE | 2021-06-04 14:48 | TREADPHA ---
DX: CHEST PAIN Date of Study: 06/04/2021 Ht: 5' 6 " Wt: 235 lb 1.6 oz Consulting Physician: ROSE MEDICATIONS: HISTORY: PHYSICIAL EXAMINATION: RESTING B.P.: 95/59 RESTING H.R.: 94 RESTING EKG: SINUS BRADYCARDIA, RIGHT BUNDLE BRANCH BLOCK, LEFT VENTRICULAR HYPERTROPHY PROTOCOL: PHARMACOLOGIC EXERCISE TIME: 3:30 B.P. AT PEAK STRESS: 95/51 IMPRESSION: LEXISCAN INJECTED. CARDIOLITE INJECTION (SEE NUCLER MEDICINE REPORT). NO ARRHYTHMIAS NOTED. COMPLAINTS OF FEELING HOT AND DIZZY. NO VENTRICULAR TACHYCARDIA/ SUPRAVENTRICULAR. NO EKG CHANGES WITH LEXISCAN.
--- NOTE | 2021-06-04 16:25 | P.CNS ---
Date of Consult: 06/04/21 Reason for Consult: COPD exacerbation Chief Complaint: SOB, chest pain, COPD History of Present Illness: AGe 50 Aw chest pain HX ofCADworse over thast 3 wks SOB worse active smoker / poss PE No R L DVT 50yo F, PMH: [place], HPV, COPD, smoker Allergies No Known Allergies Allergy (Unverified 08/13/17 11:16) Home Medications: ALPRAZolam [Alprazolam] 1 mg PO BID 06/04/21 Bupropion HCl [Wellbutrin Xl] 150 mg PO BID 06/04/21 Nitroglycerin 0.4 mg SL PRN 06/04/21 - Past Medical/Surgical History Diabetic: Yes -: Anxiety disorder -: Diabetes mellitus -: CAD -: Hyperlipidemia -: ARF -: CHF -: COPD -: HTN -: Afib -: ME -: adhesion removal -: tubal ligation -: Heart cath Psychosocial/ Personal History: Unable to be obtained, patient lives at [facility] - Family History Mother Medical History: Lung disease, Cancer Notes: CA and COPD Father Medical History: Diabetes, Stroke - Social History Smoking Status: Current every day smoker Alcohol use: Yes CD- Drugs: No Caffeine use: Yes Place of Residence: Home Review of Systems 10-point ROS is otherwise unremarkable Respiratory: Cough, Shortness of Breath Physical Examination Temp Pulse Resp BP Pulse Ox 97.8 F 87 24 H 102/56 L 91 06/04/21 12:00 06/04/21 12:00 06/04/21 12:00 06/04/21 12:00 06/04/21 12:00 General: Alert, Oriented x3 Respiratory: Expiratory wheezes Cardiovascular: No edema, Regular rate/rhythm Gastrointestinal: Soft and benign - Problems (1) COPD exacerbation Current Visit: Yes Status: Acute Plan: age 50 AW COPD exacerbation, LAbs rev macrocytosis vitals stable/CT scan RLL inflam changes, filling defects? Poss PE change ot EliquisNo insurance. change to pred and levaquin for now/ MAy need home O2/ Trop neg, ECHO Dulera
[2021-06-04] MEDS: levoFLOXacin 500 MG TAB PO SCH (17:04)
[2021-06-04 18:36] LABS: Urine Appearance CLOUDY (Clear); Urine Bilirubin NEGATIVE (Negative); Urine Blood TRACE (Negative); Urine Color YELLOW (Yellow); Urine Glucose NEGATIVE (Negative); Urine Protein NEGATIVE (Negative); Urine Specific Gravity 1.025 (1.005-1.030); Urine Urobilinogen 0.2 mg/dL (0.2-1.0); Urine pH 5.5 (5.0-7.0)
[2021-06-04 18:44] LABS: Urine Microscopic Reflex ORDER UMIC
[2021-06-04 18:52] LABS: Urine Bacteria >50 /HPF (<20); Urine RBC <5 /HPF (NONE SEEN)
[2021-06-04] MEDS: ATORVASTATIN 40 MG TAB PO SCH (20:47)
[2021-06-04] MEDS: APIXABAN 5 MG TABLET PO SCH (20:47)
[2021-06-04] MEDS: DULERA 200/5 (MOMETASONE/FORMOTEROL) INHALER IH SCH (20:48)
[2021-06-04 21:19] LABS: Arterial Blood Carboxyhemoglob 0.5 % (0-1.5); Blood Gas Oxyhemoglobin 93.8 % (94-97); Blood O2 Saturation 95.1 % (92-98.5)
--- NOTE | 2021-06-04 21:57 | RAD REPORT ---
EXAM DESCRIPTION: RAD - Chest Single View - 06/04/2021 9:37 pm CLINICAL HISTORY: SOB COMPARISON: June 03 TECHNIQUE: AP portable chest image was obtained 06/04/2021 9:37 pm . FINDINGS: Lung volumes are very low. Heart size and vasculature are accentuated by the low lung volu mes. Mild failure or volume overload could be masked. Hazy opacification in the mid left lung field p robably artifact of imaging rather than infiltrate. This can be monitored. Pleural effusions are mini mal. No pneumothorax. No acute bony abnormality seen. No acute aortic findings suspected. IMPRESSION: Very limited portable study could mask early failure or volume overload. Minimal left midlung field infiltrate is probably the affects of low lung volume but can be monitored for developing infiltrate.
[2021-06-05] MEDS: IPRATROPIUM BROM 0.5MG/2.5ML NEB SCH ×4 (02:00→20:00)
[2021-06-05 03:49] LABS: Arterial Blood Carboxyhemoglob 1.5 % (0-1.5); Blood Gas Oxyhemoglobin 87.6 % (94-97); Blood O2 Saturation 90.1 % (92-98.5)
[2021-06-05 05:33] LABS: Absolute Lymphocytes (CBC) 0.3 K/uL (0.7-4.9); Hematocrit 44.1 % (36.0-45.0); MPV 8.8 fL (7.6-11.3); RBC Red Blood Cell Count 4.03 M/uL (3.86-4.86)
[2021-06-05 05:50] LABS: Albumin 2.8 g/dL (3.4-5.0); Bilirubin Total 0.4 mg/dL (0.2-1.0); Magnesium 2.2 mg/dL (1.8-2.4); Protein, Total 6.8 g/dL (6.4-8.2)
[2021-06-05] MEDS: METOPROLOL TAR 25 MG TAB PO SCH ×2 (06:00→18:00)
[2021-06-05] MEDS: INSULIN -REGULAR HUMAN 50 UNIT/0.5 ML ML SQ SCH ×5 (07:30→21:42)
[2021-06-05] MEDS: DULERA 200/5 (MOMETASONE/FORMOTEROL) INHALER IH SCH ×2 (09:00→21:39)
[2021-06-05] MEDS: predniSONE 20 MG TAB PO SCH ×2 (09:08→20:54)
[2021-06-05] MEDS: APIXABAN 5 MG TABLET PO SCH (09:08)
[2021-06-05] MEDS: levoFLOXacin 500 MG TAB PO SCH (09:08)
[2021-06-05] MEDS: ASPIRIN EC 81 MG TAB PO SCH (09:08)
[2021-06-05] MEDS: NYSTATIN PWDR 100000 UNIT/GM TOP SCH ×2 (09:09→22:56)
--- NOTE | 2021-06-05 12:30 | P.PN ---
Subjective Date of Service: 06/05/21 Chief Complaint: SOB, chest pain, COPD Patient feels fine this morning apparently she is requiring more oxygen and had to use BiPAP last night is on high flow Review of Systems General: Weakness Respiratory: Shortness of Breath Physical Examination - Vital Signs Temperature: 97.9 F Blood Pressure: 116/71 Pulse: 76 Respirations: 22 Pulse Ox (%): 97 - Physical Exam General: Alert, In no apparent distress, Oriented x3 Respiratory: Clear to auscultation bilaterally, Diminished Assessment & Plan - Problems (Diagnosis) (1) COPD exacerbation Current Visit: Yes Status: Acute Plan: Patient is on high flow oxygen about 6 L apparently she required BiPAP last night patient denies any worsening of her symptoms continue with anticoagulation titrate sat to 90% labs reviewed otherwise no change in meds
--- NOTE | 2021-06-05 15:04 | P.PN ---
Subjective Date of Service: 06/05/21 Chief Complaint: SOB, chest pain, COPD Patient maintained on 10 L oxygen by nasal cannula. She has no new complaint. Physical Examination - Vital Signs Temperature: 97.9 F Blood Pressure: 116/71 Pulse: 76 Respirations: 22 Pulse Ox (%): 97 Assessment And Plan - Plan Physical exam GEN: Alert, NAD. CV: Regular rate and rhythm, RLE Pulm: Diminished, expiratory wheeze bilaterally, slight crackles ABD: Soft, nontender, nondistended Integumentary: erythematous rash in R groin / vulva. Problem list Chest pain. Acute hypoxemic respiratory failure Acute COPD exacerbation. PE with pulm infarct RLE swelling-resolved. Intertrigo of groin CAD, h/o [place] DM2 depression/anxiety History of paroxysmal atrial fibrillation Plan: Seen by cardiology. Stress test recommended which is negative. CT in the ED: Multiple small subsegmental PEs, concern for possible pulmonary infarct. Continue bronchodilators, and steroid for COPD exacerbation. Start oral Coumadin with Lovenox bridge. Pulmonology input appreciated. Patient started on Levaquin Wean oxygen as tolerated. Continue aspirin, beta-marcelina Nystatin powder to groin -but patient refusing intertrigo treatment. Insulin sliding scale. VTE: lovenox Code: full
[2021-06-05 15:44] LABS: Protime INR 1.27
[2021-06-05] MEDS: WARFARIN SODIUM 5 MG TAB PO SCH (17:14)
[2021-06-05] MEDS: ENOXAPARIN 100 MG/ML SYR SQ SCH (20:54)
[2021-06-05] MEDS: ATORVASTATIN 40 MG TAB PO SCH (20:54)
[2021-06-05] MEDS ORDERED: MELATONIN 5 MG TABLET PO PRN (21:33)
[2021-06-06] MEDS: IPRATROPIUM BROM 0.5MG/2.5ML NEB SCH ×4 (01:04→20:00)
[2021-06-06] MEDS: METOPROLOL TAR 25 MG TAB PO SCH ×2 (05:19→18:00)
[2021-06-06 05:40] LABS: Protime INR 1.18
[2021-06-06] MEDS: predniSONE 20 MG TAB PO SCH ×2 (08:26→21:41)
[2021-06-06] MEDS: levoFLOXacin 500 MG TAB PO SCH (08:26)
[2021-06-06] MEDS: ASPIRIN EC 81 MG TAB PO SCH (08:26)
[2021-06-06] MEDS: ENOXAPARIN 100 MG/ML SYR SQ SCH ×2 (08:27→21:43)
[2021-06-06] MEDS: DULERA 200/5 (MOMETASONE/FORMOTEROL) INHALER IH SCH ×2 (08:27→21:42)
[2021-06-06] MEDS: INSULIN -REGULAR HUMAN 50 UNIT/0.5 ML ML SQ SCH ×4 (08:29→21:00)
--- NOTE | 2021-06-06 08:36 | ECHO ---
HEIGHT: 5 ft 6 in WEIGHT: 235 lb 1.6 oz DATE OF STUDY: 06/05/[address]: Matthew Erwin MD 2-DIMENSIONAL: YES M.MODE: YES DOPPLER: YES COLOR FLOW: YES TDS: PORTABLE: DEFINITY: BUBBLE STUDY: DIAGNOSIS: SHORTNESS OF BREATH CARDIAC HISTORY: CATHERIZATION: NO SURGERY: NO PROSTHETIC VALVE: NO PACEMAKER: NO MEASUREMENTS (cm) DIASTOLIC (NORMALS) SYSTOLIC (NORMALS) IVSd 1.0 (0.6-1.2) LA Diam 2.9 (1.9-4.0) LVEF 53% LVIDd 4.7 (3.5-5.7) LVIDs 3.4 (2.0-3.5) %FS 27% LVPWd 1.5 (0.6-1.2) Ao Diam 2.6 (2.0-3.7) 2 DIMENSIONAL ASSESSMENT: RIGHT ATRIUM: NORMAL LEFT ATRIUM: NORMAL RIGHT VENTRICLE: NORMAL LEFT VENTRICLE: LEFT VENTRICULAR HYPERTROPHY TRICUSPID VALVE: NORMAL MITRAL VALVE: NORMAL PULMONIC VALVE: NORMAL AORTIC VALVE: NORMAL PERICARDIAL EFFUSION: NONE AORTIC ROOT: NORMAL LEFT VENTRICULAR WALL MOTION: NORMAL DOPPLER/COLOR FLOW: NORMAL COMMENTS: LEFT VENTRICULAR HYPERTROPHY. NORMAL EJECTION FRACTION. NO EFFUSION. TECHNOLOGIST: OLGA SKINNER
[2021-06-06] MEDS: NYSTATIN PWDR 100000 UNIT/GM TOP SCH ×2 (09:01→21:43)
--- NOTE | 2021-06-06 13:58 | P.PN ---
Subjective Date of Service: 06/06/21 Chief Complaint: SOB, chest pain, COPD Patient states he feels better today. States shortness of breath is better. Oxygen has been weaned down to 2 L. Physical Examination - Vital Signs Temperature: 96.9 F Blood Pressure: 126/72 Pulse: 69 Respirations: 22 Pulse Ox (%): 94 Assessment And Plan - Plan Physical exam GEN: Alert, NAD. CV: Regular rate and rhythm, RLE Pulm: Diminished, expiratory wheeze bilaterally, slight crackles ABD: Soft, nontender, nondistended Integumentary: erythematous rash in R groin / vulva. Problem list Chest pain. Acute hypoxemic respiratory failure Acute COPD exacerbation. PE with pulm infarct RLE swelling-resolved. Intertrigo of groin CAD, h/o [place] DM2 depression/anxiety History of paroxysmal atrial fibrillation Plan: Seen by cardiology. Stress test is negative. CT in the ED: Multiple small subsegmental PEs, concern for possible pulmonary infarct. Continue bronchodilators, and steroid for COPD exacerbation. Continue oral Coumadin with Lovenox bridge. Monitor INR daily. Pulmonology input appreciated. Patient started on Levaquin Wean oxygen as tolerated. Hopefully can wean her off oxygen. Continue aspirin, beta-marcelina Nystatin powder to groin -but patient refusing intertrigo treatment. Insulin sliding scale. Increase activity as tolerated. VTE: lovenox Code: full
[2021-06-06] MEDS: WARFARIN SODIUM 5 MG TAB PO SCH (16:55)
[2021-06-06] MEDS: ATORVASTATIN 40 MG TAB PO SCH (21:42)
[2021-06-07] MEDS: IPRATROPIUM BROM 0.5MG/2.5ML NEB SCH ×4 (02:00→20:30)
[2021-06-07 05:53] LABS: Protime INR 1.07
[2021-06-07] MEDS: METOPROLOL TAR 25 MG TAB PO SCH ×2 (06:00→18:00)
[2021-06-07] MEDS: INSULIN -REGULAR HUMAN 50 UNIT/0.5 ML ML SQ SCH ×4 (07:30→20:44)
[2021-06-07] MEDS: levoFLOXacin 500 MG TAB PO SCH (08:26)
[2021-06-07] MEDS: predniSONE 20 MG TAB PO SCH ×2 (08:26→20:52)
[2021-06-07] MEDS: ASPIRIN EC 81 MG TAB PO SCH (08:26)
[2021-06-07] MEDS: NYSTATIN PWDR 100000 UNIT/GM TOP SCH ×2 (08:26→20:52)
[2021-06-07] MEDS: ENOXAPARIN 100 MG/ML SYR SQ SCH ×2 (08:26→20:53)
[2021-06-07] MEDS: DULERA 200/5 (MOMETASONE/FORMOTEROL) INHALER IH SCH ×2 (08:27→20:53)
--- NOTE | 2021-06-07 12:46 | P.PN ---
Subjective Date of Service: 06/07/21 Chief Complaint: SOB, chest pain, COPD Patient respiratory status is improving. She tolerated room air at rest with oxygen saturation in the low 90s. Physical Examination - Vital Signs Temperature: 98.0 F Blood Pressure: 115/59 Pulse: 95 Respirations: 18 Pulse Ox (%): 97 Assessment And Plan - Plan Physical exam GEN: Alert, NAD. CV: Regular rate and rhythm. Pulm: Diminished, no wheezing or crackles. ABD: Soft, nontender, nondistended Integumentary: erythematous rash in R groin / vulva. Problem list Chest pain. Acute hypoxemic respiratory failure Acute COPD exacerbation. PE with pulm infarct RLE swelling-resolved. Intertrigo of groin CAD, h/o [place] DM2 depression/anxiety History of paroxysmal atrial fibrillation Plan: Seen by cardiology. Stress test is negative. CT in the ED: Multiple small subsegmental PEs, concern for possible pulmonary infarct. Continue bronchodilators, and steroid for COPD exacerbation. Titrate oral Coumadin with Lovenox bridge. Monitor INR daily. Seen by pulmonology. On Levaquin Wean oxygen as tolerated. Hopefully can wean her off oxygen. Continue aspirin, beta-marcelina Nystatin powder to groin. Insulin sliding scale. Increase activity as tolerated. VTE: lovenox Code: full
[2021-06-07] MEDS ORDERED: WARFARIN SODIUM 5 MG TAB PO SCH (17:00)
[2021-06-07] MEDS: ATORVASTATIN 40 MG TAB PO SCH (20:52)
[2021-06-08] MEDS: IPRATROPIUM BROM 0.5MG/2.5ML NEB SCH ×4 (02:45→20:30)
[2021-06-08] MEDS: METOPROLOL TAR 25 MG TAB PO SCH ×2 (06:00→18:00)
[2021-06-08 06:08] LABS: Absolute Lymphocytes (CBC) 0.7 K/uL (0.7-4.9); Hematocrit 48.1 % (36.0-45.0); Lymphocytes % 11.7 % (15.3-44.8); MPV 8.5 fL (7.6-11.3); RBC Red Blood Cell Count 4.42 M/uL (3.86-4.86)
[2021-06-08 06:13] LABS: Protime INR 1.28
[2021-06-08 06:25] LABS: Potassium 4.1 mmol/L (3.5-5.1)
[2021-06-08] MEDS: INSULIN -REGULAR HUMAN 50 UNIT/0.5 ML ML SQ SCH ×4 (07:30→21:00)
[2021-06-08 07:56] LABS: Blood Morphology Comment NOTED (NOT SEEN); White Blood Cell Scan OK (OK)
[2021-06-08 07:57] LABS: Anisocytosis 1+; Macrocytosis 1+; Platelet Estimate DECR
[2021-06-08] MEDS: DULERA 200/5 (MOMETASONE/FORMOTEROL) INHALER IH SCH ×2 (09:00→21:45)
[2021-06-08] MEDS: ENOXAPARIN 100 MG/ML SYR SQ SCH ×2 (09:07→21:38)
[2021-06-08] MEDS: ASPIRIN EC 81 MG TAB PO SCH (09:08)
[2021-06-08] MEDS: NYSTATIN PWDR 100000 UNIT/GM TOP SCH ×2 (09:08→21:39)
[2021-06-08] MEDS: levoFLOXacin 500 MG TAB PO SCH (09:08)
[2021-06-08] MEDS: predniSONE 20 MG TAB PO SCH ×2 (09:08→21:38)
--- NOTE | 2021-06-08 15:26 | P.PN ---
Subjective Date of Service: 06/08/21 Chief Complaint: SOB, chest pain, COPD Patient respiratory status is improving. Currently 91% on RA. She has no new complain. She has been ambulatory. Physical Examination - Vital Signs Temperature: 97.0 F Blood Pressure: 96/56 Pulse: 67 Respirations: 18 Pulse Ox (%): 91 Assessment And Plan - Plan Physical exam GEN: Alert, NAD. CV: Regular rate and rhythm. Pulm: Diminished, no wheezing or crackles. ABD: Soft, nontender, nondistended Integumentary: erythematous rash in R groin / vulva. Problem list Chest pain. Acute hypoxemic respiratory failure Acute COPD exacerbation. PE with pulm infarct RLE swelling-resolved. Intertrigo of groin CAD, h/o [place] DM2 depression/anxiety History of paroxysmal atrial fibrillation Plan: Seen by cardiology. Stress test is negative. CT in the ED: Multiple small subsegmental PEs, concern for possible pulmonary infarct. Continue bronchodilators, and steroid for COPD exacerbation. Titrate oral Coumadin with Lovenox bridge. Monitor INR daily. Seen by pulmonology. Levaquin discontinued. Currently tolerating room air. Continue aspirin, beta-marcelina Nystatin powder to groin. Insulin sliding scale. Increase activity as tolerated. Waiting for INR to be therapeutic before discharge. VTE: lovenox Code: full
[2021-06-08] MEDS ORDERED: WARFARIN SODIUM 5 MG TAB PO SCH (17:00)
[2021-06-08] MEDS: WARFARIN SODIUM 7.5 MG TAB PO SCH (17:00)
[2021-06-08] MEDS ORDERED: WARFARIN SODIUM 2.5 MG TAB ONE (17:52)
[2021-06-08] MEDS: ATORVASTATIN 40 MG TAB PO SCH (21:38)
[2021-06-09] MEDS: IPRATROPIUM BROM 0.5MG/2.5ML NEB SCH ×4 (02:00→19:22)
[2021-06-09] MEDS: METOPROLOL TAR 25 MG TAB PO SCH (05:32)
[2021-06-09 06:22] LABS: Protime INR 1.61
[2021-06-09] MEDS: DULERA 200/5 (MOMETASONE/FORMOTEROL) INHALER IH SCH ×2 (09:00→22:13)
[2021-06-09] MEDS: ENOXAPARIN 100 MG/ML SYR SQ SCH ×2 (09:26→22:10)
[2021-06-09] MEDS: ASPIRIN EC 81 MG TAB PO SCH (09:27)
[2021-06-09] MEDS: INSULIN -REGULAR HUMAN 50 UNIT/0.5 ML ML SQ SCH ×4 (09:27→22:35)
[2021-06-09] MEDS: predniSONE 20 MG TAB PO SCH ×2 (09:27→22:10)
[2021-06-09] MEDS: NYSTATIN PWDR 100000 UNIT/GM TOP SCH ×2 (09:28→22:12)
--- NOTE | 2021-06-09 12:35 | P.PN ---
Subjective Date of Service: 06/09/21 Chief Complaint: SOB, chest pain, COPD Patient respiratory improved Patient has been tolerating room air with good oxygen saturation. She has no new complain. She has been ambulatory. Physical Examination - Vital Signs Temperature: 97.0 F Blood Pressure: 103/64 Pulse: 63 Respirations: 16 Pulse Ox (%): 92 Assessment And Plan - Plan Physical exam GEN: Alert, NAD. CV: Regular rate and rhythm. Pulm: Diminished, no wheezing or crackles. ABD: Soft, nontender, nondistended Integumentary: erythematous rash in R groin / vulva. Problem list Chest pain. Acute hypoxemic respiratory failure Acute COPD exacerbation. PE with pulm infarct RLE swelling-resolved. Intertrigo of groin CAD, h/o [place] DM2 depression/anxiety History of paroxysmal atrial fibrillation Plan: Stress test is negative. Cardiology input appreciated. CT in the ED: Multiple small subsegmental PEs with pulmonary infarcts. Continue bronchodilators, and steroid for COPD exacerbation. Titrate oral Coumadin with Lovenox bridge. INR up to 1.6. Target INR is 2. Seen by pulmonology. Levaquin discontinued. She has been tolerating room air. Continue aspirin, beta-marcelina Nystatin powder to groin. Insulin sliding scale. Increase activity as tolerated. Disposition: Discharged to home once INR is therapeutic. VTE: lovenox Code: full
[2021-06-09] MEDS ORDERED: WARFARIN SODIUM 2.5 MG TAB ONE (16:08)
[2021-06-09] MEDS: WARFARIN SODIUM 7.5 MG TAB PO SCH (16:30)
[2021-06-09] MEDS ORDERED: WARFARIN SODIUM 1 MG TAB PO SCH (17:00)
[2021-06-09] MEDS: ATORVASTATIN 40 MG TAB PO SCH (22:10)
[2021-06-10] MEDS: IPRATROPIUM BROM 0.5MG/2.5ML NEB SCH ×2 (02:23→08:53)
[2021-06-10] MEDS: METOPROLOL TAR 25 MG TAB PO SCH (06:00)
[2021-06-10 06:20] LABS: Protime INR 2.34
[2021-06-10] MEDS: INSULIN -REGULAR HUMAN 50 UNIT/0.5 ML ML SQ SCH ×2 (07:30→11:30)
[2021-06-10] MEDS: ENOXAPARIN 100 MG/ML SYR SQ SCH (09:00)
[2021-06-10] MEDS: DULERA 200/5 (MOMETASONE/FORMOTEROL) INHALER IH SCH ×2 (09:00)
[2021-06-10 09:42] VITALS: O2SAT 92
[2021-06-10] MEDS: ASPIRIN EC 81 MG TAB PO SCH (09:42)
[2021-06-10] MEDS: predniSONE 20 MG TAB PO SCH (09:42)
[2021-06-10] MEDS: NYSTATIN PWDR 100000 UNIT/GM TOP SCH (09:43)
--- NOTE | 2021-06-10 10:49 | P.DS ---
Admission Date: 06/03/21 Discharge Date: 06/10/21 Disposition: ROUTINE DISCHARGE Discharge Condition: FAIR Reason for Admission: SOB, chest pain, COPD Brief History of Present Illness: 50yo F, PMH: [place], HPV, COPD, smoker Presented to ED due to worsening chest pain. She stated she had chest pain since her [place], takes nitroglycerin daily which helps. Pain has been worse, is squeezing in nature, substernal, no radiation. Associated with increased shortness of breath, R leg swelling over the last 3 weeks. Gunter she has been wheezing more than usual. Continues to smoke 1ppd. In the ED, she was noted to be short of breath, mildly elevated LFTs, and tachycardic. Patient admitted for further management. Hospital Course: Diagnosis Chest pain. Acute hypoxemic respiratory failure Acute COPD exacerbation. PE with pulm infarct RLE swelling-resolved. Intertrigo of groin CAD, h/o [place] DM2 depression/anxiety History of paroxysmal atrial fibrillation Plan: Patient admitted to the medical floor. Seen by cardiology and stress test recommended Stress test negative. CTA PE in the ED: Multiple small subsegmental PEs with pulmonary infarcts. Treated with oral Coumadin with Lovenox bridge. INR up to 2.3 today. Lovenox discontinued. Patient placed on bronchodilators for COPD exacerbation and treated with steroid. Was initially requiring oxygen but was weaned off oxygen to room air. Seen by pulmonology who assisted with treatment of her COPD. She was treated with Levaquin briefly Continued aspirin, Lipitor and metoprolol for CAD Nystatin powder to groin for intertrigo. Insulin sliding scale used for glucose management. Patient has clinically improved, INR is therapeutic. She is deemed stable for discharge. Patient informed her INR need to be monitored for Coumadin dose adjustment, starting from twice a week twice a week once a stable dose is reached, and then once a month if the dose remains stable. Patient plans to follow-up with a clinic in [facility] or [facility] for INR monitoring and Coumadin dose adjustment. Vital Signs/Physical Exam: Temp Pulse Resp BP Pulse Ox 96.9 F 54 18 102/64 98 06/10/21 08:00 06/10/21 08:00 06/10/21 08:00 06/10/21 08:00 06/10/21 08:00 General: Alert, In no apparent distress, Oriented x3 HEENT: Mucous membr. moist/pink Neck: JVD not distended Respiratory: Clear to auscultation bilaterally, Normal air movement Cardiovascular: No edema, Regular rate/rhythm, Normal S1 S2 Gastrointestinal: Soft and benign, Non-distended, No tenderness Musculoskeletal: No swelling, No tenderness Neurological: Normal strength at 5/5 x4 extr Laboratory Data at Discharge: WBC 6.20 K/uL (4.3-10.9) D 06/08/21 05:56 Hgb 15.4 g/dL (12.0-15.0) H 06/08/21 05:56 Hct 48.1 % (36.0-45.0) H 06/08/21 05:56 Plt Count 170 K/uL (152-406) 06/08/21 05:56 PT 27.2 SECONDS (9.5-12.5) H 06/10/21 05:50 INR 2.34 06/10/21 05:50 Sodium 142 mmol/L (136-145) 06/08/21 05:56 Potassium 4.1 mmol/L (3.5-5.1) 06/08/21 05:56 BUN 20 mg/dL (7-18) H 06/08/21 05:56 Creatinine 0.93 mg/dL (0.55-1.3) 06/08/21 05:56 Glucose 204 mg/dL (74-106) H 06/08/21 05:56 Magnesium 2.2 mg/dL (1.8-2.4) 06/05/21 05:09 Total Bilirubin 0.4 mg/dL (0.2-1.0) 06/05/21 05:09 AST 54 U/L (15-37) H 06/05/21 05:09 ALT 97 U/L (12-78) H 06/05/21 05:09 Alkaline Phosphatase 83 U/L (45-117) 06/05/21 05:09 Triglycerides 254 mg/dL (<150) H 06/04/21 06:47 Cholesterol 263 mg/dL (<200) H 06/04/21 06:47 HDL Cholesterol 44 mg/dL (40-60) 06/04/21 06:47 Cholesterol/HDL Ratio 5.98 06/04/21 06:47 Home Medications: ALPRAZolam [Alprazolam] 1 mg PO BID 06/04/21 Bupropion HCl [Wellbutrin Xl] 150 mg PO BID 06/04/21 Nitroglycerin 0.4 mg SL PRN 06/04/21 Atorvastatin Calcium [Lipitor] 40 mg PO BEDTIME #30 tab 06/10/21 Mometasone/Formoterol [Dulera 200 Mcg/5 Mcg Inhaler] 2 puff IH BID #1 inhaler 06/10/21 Nystatin Powder [Mycostatin (Powder)*] 1 appl TOP BID #1 btl 06/10/21 Warfarin Sodium [Coumadin*] 7.5 mg PO DAILY 5 PM #30 tab 06/10/21 predniSONE [Prednisone*] 20 mg PO BID #6 tab 06/10/21 New Medications: Warfarin Sodium [Coumadin*] 7.5 mg PO DAILY 5 PM #30 tab Mometasone/Formoterol [Dulera 200 Mcg/5 Mcg Inhaler] 2 puff IH BID #1 inhaler Atorvastatin Calcium [Lipitor] 40 mg PO BEDTIME #30 tab Nystatin Powder [Mycostatin (Powder)*] 1 appl TOP BID #1 btl predniSONE [Prednisone*] 20 mg PO BID #6 tab Physician Discharge Instructions: Check PT/INR within 3 days for Warfarin dose adjustment. Check PT/INR twice a week until a stable dose is reached, then once a week, followed by once a month once dose is stable. Diet: AHA Activity: Ad yadiel Followup: Bruce Soares MD [Primary Care Provider] - Time spent managing pt's care (in minutes): 40
[2021-06-10 12:23] VITALS: BP 108/66; TEMP 97
== END 2021-06-10 14:13 | disposition home or self-care (01) | DRG 190 ==
LOC: ER 12:45 → ERHOLD 16:10 → 2ND 06-04 10:16
PROVIDERS: ADMIT Hospitalist; ATTEND Internal Medicine
PROC: 5A09557 Assistance with Respiratory Ventilation, Greater than 96 Consecutive Hours, Continuous Positive Airway Pressure (ICD-10-PCS; principal; 2021-06-03)
DX: J44.1 Chronic obstructive pulmonary disease with (acute) exacerbation (principal); I26.99 Other pulmonary embolism without acute cor pulmonale; J96.01 Acute respiratory failure with hypoxia; I50.32 Chronic diastolic (congestive) heart failure; I11.0 Hypertensive heart disease with heart failure; E11.9 Type 2 diabetes mellitus without complications; I25.10 Atherosclerotic heart disease of native coronary artery without angina pectoris; E78.5 Hyperlipidemia, unspecified; F41.9 Anxiety disorder, unspecified; I48.0 Paroxysmal atrial fibrillation; F32.A Depression, unspecified; L30.4 Erythema intertrigo; M79.89 Other specified soft tissue disorders; I25.2 Old myocardial infarction; F17.210 Nicotine dependence, cigarettes, uncomplicated; Z98.51 Tubal ligation status; Z79.02 Long term (current) use of antithrombotics/antiplatelets; Z79.899 Other long term (current) drug therapy; Z79.01 Long term (current) use of anticoagulants; Z20.822 Contact with and (suspected) exposure to COVID-19
CPT/HCPCS: 36415; 71045; 71275; 74177; 78452; 80048; 80053; 80061; 80076; 81003; 81015; 82805; 82947; 83735; 83880; 84145; 84439; 84443; 84484; 85025; 85379; 85610; 86140; 87086; 87088; 93005; 93017; 93306; 93971; 94640; 94660; 94760; 96374; 96375; 97116; 97161; 97530; 99285; A9500; J0456; J1650; J2405; J2785; J7030; J7050; J7512; J7606; Q9967; U0003

== ENCOUNTER 2021-06-15 19:59 | Emergency (ER) | payer SELFPAY ==
[2021-06-15] MEDS ORDERED: ONDANSETRON 4 MG/2 ML VIAL ONE (22:06)
[2021-06-15] MEDS ORDERED: MORPHINE 2 MG/ML SYR ONE (22:06)
[2021-06-15] MEDS ORDERED: NA CHLORIDE 0.9% 1,000 ML ONE (22:06)
[2021-06-15 22:31] LABS: Absolute Lymphocytes (CBC) 1.9 K/uL (0.7-4.9); Hematocrit 51.4 % (36.0-45.0); Lymphocytes % 26.2 % (15.3-44.8); MPV 8.9 fL (7.6-11.3); RBC Red Blood Cell Count 4.67 M/uL (3.86-4.86)
[2021-06-15 22:37] LABS: Protime INR 1.99
[2021-06-15 22:54] LABS: ALT/SGPT 53 U/L (12-78); Albumin 2.8 g/dL (3.4-5.0); Alkaline Phosphatase 77 U/L (45-117); BUN Blood Urea Nitrogen 24 mg/dL (7-18); Bicarbonate 32 mmol/L (21-32); Bilirubin Direct < 0.1 mg/dL (0-0.2); Bilirubin Total 0.2 mg/dL (0.2-1.0); Creatine Phosphokinase 43 U/L (26-192); Glucose Level 147 mg/dL (74-106); NT PRO-BNP 87 pg/mL (<125); Protein, Total 6.4 g/dL (6.4-8.2); Sodium Level 143 mmol/L (136-145)
[2021-06-15 22:55] LABS: AST/SGOT 18 U/L (15-37); Potassium 4.3 mmol/L (3.5-5.1)
[2021-06-15 23:15] LABS: White Blood Cell Scan OK (OK)
[2021-06-15 23:16] LABS: Blood Morphology Comment NOTED (NOT SEEN); Macrocytosis 2+; Platelet Estimate ADEQ
[2021-06-15] MEDS ORDERED: CLINDAMYCIN 900MG/D5W 900 MG/50 ML IVPB IV ONE (23:57)
--- NOTE | 2021-06-16 00:32 | ER ---
Nurse's Notes [facility] Name: Raiza Whaley Age: 50 yrs Sex: Female : 1970 Arrival Date: 06/15/2021 Time: 20:08 Bed 15 Private MD: Diagnosis: Cellulitis of right lower limb-Possible right foot second digit soft tissue foreign body Presentation: 06/15 20:16 Chief complaint: Patient states: My right leg started hurting and swelling since before vc1 I was admitted here a week ago, I spent seven days here. When I went home the swelling and pain was gone but now it is back and it is excrutiating. Chief complaint: EMS states: 50 yo female has been here 2 times within the last month. She states she was here last week for 2 blood clots in her lungs and they put her on aspirin for that. She called us for extreme pain and swelling in her right leg. Coronavirus screen: Vaccine status: Patient reports being unvaccinated. At this time, the client does not indicate any symptoms associated with coronavirus-19. Ebola Screen: No symptoms or risks identified at this time. Initial Sepsis Screen: Does the patient meet any 2 criteria? Temp <36.0*C (96.8*F)) or > 38.3*C (100.9*F). No. Patient's initial sepsis screen is negative. Does the patient have a suspected source of infection? No. Patient's initial sepsis screen is negative. Risk Assessment: Do you want to hurt yourself or someone else? Patient reports no desire to harm self or others. Onset of symptoms was June 13, 2021 at 08:00. Care prior to arrival: vitals prior to arrival 130/93 temp 98.2 pulse 73 98% room air. 20:16 Method Of Arrival: EMS: [facility] vc1 20:16 Acuity: PATRIZIA 3 vc1 Triage Assessment: 20:24 General: Appears in no apparent distress. uncomfortable, obese, Behavior is calm, vc1 cooperative, appropriate for age, Smells of cigarettes. Pain: Complains of pain in right leg Pain does not radiate. Pain currently is 9 out of 10 on a pain scale. Also complains of inability to perform activities of daily living, sleeplessness. Derm: Skin is red, Skin temperature is cool Reports pain that is 9 out of 10 on a pain scale. 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 Flu vaccine is not up to date. - Social history:: Smoking status: Patient reports the use of cigarette tobacco products, smokes one-half pack cigarettes per day. Screenin:29 Abuse screen: Denies threats or abuse. Nutritional screening: No deficits noted. bb Tuberculosis screening: No symptoms or risk factors identified. Fall Risk Secondary diagnosis (15 points) impaired mobility, IV access (20 points). Ambulatory Aid- None/Bed Rest/Nurse Assist (0 pts). Gait- Impaired (20 pts.). Mental Status- Oriented to own ability (0 pts). Total Adams Fall Scale indicates High Risk Score (45 or more points). Fall prevention measures have been instituted. Family Present and informed to notify staff if the need to leave the bedside As available patient and family educated on Fall Prevention Program and Strategies. Assessment: 21:29 General: Appears in no apparent distress. uncomfortable, obese, Behavior is calm, bb cooperative. Pain: Complains of pain in right leg Pain currently is 9 out of 10 on a pain scale. Neuro: Level of Consciousness is awake, alert, obeys commands, Oriented to person, place, time, situation. Cardiovascular: Capillary refill < 3 seconds Patient's skin is warm and dry. Respiratory: Airway is patent. GI: Abdomen is obese. Derm: Skin is pink, warm \T\ dry. Musculoskeletal: right lower extremity reddened Reports pain in right leg. 22:46 Reassessment: Patient is alert, oriented x 3, equal unlabored respirations, skin bb warm/dry/pink. IV site intact, patent, with fluids infusing, family at bedside. 06/16 01:00 Reassessment: Patient and/or family updated on plan of care and expected duration. Pain vc1 level reassessed. Patient is alert, oriented x 3, equal unlabored respirations, skin warm/dry/pink. Patient states symptoms have improved. Vital Signs: 06/15 20:16 BP 110 / 85; Pulse 86; Resp 20; Temp 96.9(A); Pulse Ox 96% on R/A; Weight 99.79 kg; vc1 Height 5 ft. 6 in. (167.64 cm); Pain 9/10; 21:29 BP 105 / 70; Pulse 77; Resp 16 S; Pulse Ox 92% on R/A; Pain 9/10; bb 22:47 BP 106 / 81; Pulse 68; Resp 16 S; Pulse Ox 96% on R/A; bb 20:16 Body Mass Index 35.51 (99.79 kg, 167.64 cm) vc1 ED Course: 20:08 Patient arrived in ED. [id number] 20:24 Triage completed. vc1 20:24 Arm band placed on right wrist. vc1 21:12 Brent Thompson MD is Attending Physician. 7 21:29 Patient has correct armband on for positive identification. Placed in gown. Bed in low bb position. Call light in reach. Adult w/ patient. Pulse ox on. NIBP on. 22:19 Khloe Ballard, RN is Primary Nurse. vc1 22:29 XRAY Chest (1 view) In Process Unspecified. EDMS 22:29 Foot Right 3 View XRAY In Process Unspecified. EDMS 22:29 Tib Fib Right XRAY In Process Unspecified. EDMS 23:31 US Extremity Venous Unilateral Ltd In Process Unspecified. EDMS 23:31 US LE Artery Uni Ltd In Process Unspecified. EDMS 02 00:30 Dino High DPM is Referral Physician. 7 01:00 No provider procedures requiring assistance completed. IV discontinued, intact, vc1 bleeding controlled, No redness/swelling at site. Pressure dressing applied. 04:32 Blood Culture Sent. vc1 04:32 Blood Culture Adult (2) Sent. vc1 Administered Medications: 06/15 22:38 Drug: morphine 2 mg Route: IVP; Site: right antecubital; vc1 06/16 01:13 Follow up: Response: No adverse reaction vc1 06/15 22:38 Drug: Zofran (Ondansetron) 4 mg Route: IVP; Site: right antecubital; vc1 06/16 01:13 Follow up: Response: No adverse reaction vc1 06/15 22:39 Drug: NS 0.9% 1000 ml Route: IV; Rate: 1000 ml; Site: right antecubital; vc1 06/16 04:31 Follow up: Response: No adverse reaction; IV Status: Completed infusion; IV Intake: vc1 800ml 06/15 23:58 Drug: Clindamycin 900 mg Route: IVPB; Infused Over: 30 mins; Site: right antecubital; vc1 06/16 01:00 Follow up: Response: No adverse reaction; IV Status: Completed infusion; IV Intake: [id number] Intake: 01:00 IV: 50ml; Total: 50ml. vc1 04:31 IV: 800ml; Total: 850ml. vc1 Outcome: 00:31 Discharge ordered by . domingo 01:14 Discharged to home ambulatory. vc1 01:14 Condition: good 01:14 Discharge instructions given to patient, Instructed on discharge instructions, follow up and referral plans. medication usage, Demonstrated understanding of instructions, follow-up care, medications, Prescriptions given X 3. 01:14 Patient left the ED. vc1 Signatures: Dispatcher [employer] EDRea Mejía RN RN bb Holmes, Maurice, MD MD Adela Perera Vanessa, RN RN vc1
--- NOTE | 2021-06-16 00:32 | EDPHYS ---
Physician Documentation [facility] Name: Raiza Whaley Age: 50 yrs Sex: Female : 1970 Arrival Date: 06/15/2021 Time: 20:08 Bed 15 Private MD: ED Physician Brent Thompson HPI: 06/15 21:57 This 50 yrs old Female presents to ER via EMS with complaints of Foot Pain, Leg mh7 Swelling, Leg Pain, RIGHT FOOT SWELLING, TENDER TO TOUCH. 21:59 The patient presents with pain, that is acute, swelling. The complaints affect the mh7 Right lower leg. Context: The problem was sustained at an unknown site, resulted from an unknown cause, the patient can fully bear weight, the patient is able to ambulate, with moderate difficulty, Problem is a result from a previous injury: No. Onset: The symptoms/episode began/occurred 1 week(s) ago, and became worse 3 day(s) ago. Modifying factors: The symptoms are alleviated by nothing. the symptoms are aggravated by weight bearing, Touching. Associated signs and symptoms: Pertinent positives: calf tenderness, swelling, Pertinent negatives fever, nausea, numbness, rash, tingling, vomiting, warmth, weakness. Treatment prior to arrival includes: no previous treatment. Severity of symptoms: At their worst the symptoms were moderate, 3 day(s) ago, in the emergency department the symptoms have improved, moderately. The patient has been recently been admitted at [facility], was discharged last week. 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 Flu vaccine is not up to date. - Social history:: Smoking status: Patient reports the use of cigarette tobacco products, smokes one-half pack cigarettes per day. ROS: 21:59 Constitutional: Negative for fever, chills, and weight loss, Eyes: Negative for injury, mh7 pain, redness, and discharge, ENT: Negative for injury, pain, and discharge, Neck: Negative for injury, pain, and swelling, Cardiovascular: Negative for chest pain, palpitations, and edema, Respiratory: Negative for shortness of breath, cough, wheezing, and pleuritic chest pain, Abdomen/GI: Negative for abdominal pain, nausea, vomiting, diarrhea, and constipation, Back: Negative for injury and pain, : Negative for injury, bleeding, discharge, and swelling, Skin: Negative for injury, rash, and discoloration, Neuro: Negative for headache, weakness, numbness, tingling, and seizure, Psych: Negative for depression, anxiety, suicide ideation, homicidal ideation, and hallucinations, Allergy/Immunology: Negative for hives, rash, and allergies, Endocrine: Negative for neck swelling, polydipsia, polyuria, polyphagia, and marked weight changes, Hematologic/Lymphatic: Negative for swollen nodes, abnormal bleeding, and unusual bruising. Exam: 21:59 Constitutional: This is a well developed, well nourished patient who is awake, alert, mh7 and in no acute distress. Head/Face: Normocephalic, atraumatic. Eyes: Pupils equal round and reactive to light, extra-ocular motions intact. Lids and lashes normal. Conjunctiva and sclera are non-icteric and not injected. Cornea within normal limits. Periorbital areas with no swelling, redness, or edema. Neck: Trachea midline, no thyromegaly or masses palpated, and no cervical lymphadenopathy. Supple, full range of motion without nuchal rigidity, or vertebral point tenderness. No Meningismus. Chest/axilla: Normal chest wall appearance and motion. Nontender with no deformity. No lesions are appreciated. Cardiovascular: Regular rate and rhythm with a normal S1 and S2. No gallops, murmurs, or rubs. Normal PMI, no JVD. No pulse deficits. Respiratory: Lungs have equal breath sounds bilaterally, clear to auscultation and percussion. No rales, rhonchi or wheezes noted. No increased work of breathing, no retractions or nasal flaring. Abdomen/GI: Soft, non-tender, with normal bowel sounds. No distension or tympany. No guarding or rebound. No evidence of tenderness throughout. Back: No spinal tenderness. No costovertebral tenderness. Full range of motion. Psych: Awake, alert, with orientation to person, place and time. Behavior, mood, and affect are within normal limits. 21:59 Musculoskeletal/extremity: Extremities: noted in the Right lower leg: pain, tenderness, mh7 noted in the Right foot, dorsal aspect: erythema, pain, tenderness, ROM: intact in all extremities, Circulation is intact in all extremities. Sensation intact. Compartment Syndrome exam of affected extremity: is normal. no numbness, no tingling, no sensation deficit, no palor, no weak pulses, Joints: All joints appear normal with full range of motion. Tendon exam: specific tendon testing normal through active and passive range of motion DVT Exam: negative Homans' sign noted on exam, no appreciated bluish discoloration, pain, that is mild, of the right leg, tenderness, that is mild, of the right leg, erythema, that is mild, of the Right foot, dorsal aspect, increased warmth, that is mild, of the Right foot, dorsal aspect, Calves: have equal circumference. 21:59 Skin: abscess, not appreciated, cellulitis, that is mild, well demarcated, on the mh7 Right foot, dorsal aspect, induration, is not appreciated, injury, is not appreciated, lesion(s), are not present, no rash present. 21:59 Neuro: Orientation: is normal, Mentation: is normal, Memory: is normal, Cranial nerves: grossly normal, Cerebellar function: is grossly normal, Motor: is normal, Sensation: is normal, Gait: not tested. seizure activity, is not displayed by the patient, Abnormal movements: there are no abnormal movements. Vital Signs: 20:16 BP 110 / 85; Pulse 86; Resp 20; Temp 96.9(A); Pulse Ox 96% on R/A; Weight 99.79 kg; vc1 Height 5 ft. 6 in. (167.64 cm); Pain 9/10; 21:29 BP 105 / 70; Pulse 77; Resp 16 S; Pulse Ox 92% on R/A; Pain 9/10; bb 22:47 BP 106 / 81; Pulse 68; Resp 16 S; Pulse Ox 96% on R/A; bb 20:16 Body Mass Index 35.51 (99.79 kg, 167.64 cm) vc1 MDM: 06/16 00:23 Differential diagnosis: closed fracture, contusion, abrasion, tendonitis, Cellulitis, [facility] DVT. Data reviewed: vital signs, nurses notes, old medical records, lab test result(s), cardiac enzymes, CBC, electrolytes, EKG, radiologic studies, plain films, ultrasound. Data interpreted: Pulse oximetry: on room air is 96 %. Interpretation: normal. Counseling: I had a detailed discussion with the patient and/or guardian regarding: the historical points, exam findings, and any diagnostic results supporting the discharge/admit diagnosis, lab results, radiology results, the need for outpatient follow up, an farm adviser, a education reviewer. Response to treatment: the patient's symptoms have markedly improved after treatment. ED course: Feels better, well-appearing, no acute distress, vital signs stable, no focal neurological deficits. Discussed all test results and findings with the patient. Right foot x-ray indicated possible small foreign body within the soft tissue at the base of the proximal phalanx of the second toe. On examination of right foot, there is no obvious injury, open wound, or puncture to the area. There is no noted tenderness, erythema, swelling, or discharge to the area. Patient states that she is ready for discharge from the ED. She will follow up with her primary doctor at upcoming appointment in 3 days. We will also give information to follow-up with podiatry. She also mention that she cannot afford the inhaler that was prescribed for COPD. Will attempt to prescribe a more affordable inhaler for her.. 00:31 Patient medically screened. [facility] 06/15 21:42 Order name: Basic Metabolic Panel [facility] 06/15 21:42 Order name: CBC with Diff; Complete Time: 23:31 [facility] 06/15 21:42 Order name: LFT's [facility] 06/15 21:42 Order name: Magnesium [facility] 06/15 21:42 Order name: NT PRO-BNP [facility] 06/15 21:42 Order name: PT-INR; Complete Time: 23:15 [facility] 06/15 21:42 Order name: Troponin HS [facility] 06/15 21:42 Order name: XRAY Chest (1 view) [facility] 06/15 21:43 Order name: US Extremity Venous Unilateral Ltd [facility] 06/15 22:11 Order name: Blood Culture Adult (2) [facility] 06/15 22:12 Order name: Blood Culture [facility] 06/15 22:34 Order name: Creatine Phosphokinase [facility] 06/15 22:34 Order name: CBC Smear Scan; Complete Time: 23:31 [facility] 06/15 21:42 Order name: EKG; Complete Time: 21:43 [facility] 06/15 21:42 Order name: Cardiac monitoring; Complete Time: 04:31 [facility] 06/15 21:42 Order name: EKG - Nurse/Tech; Complete Time: 23:07 [facility] 06/15 21:42 Order name: IV Saline Lock; Complete Time: 22:39 [facility] 06/15 21:42 Order name: Labs collected and sent; Complete Time: 22:39 [facility] 06/15 21:42 Order name: O2 Per Protocol; Complete Time: 22:39 [facility] 06/15 21:42 Order name: O2 Sat Monitoring; Complete Time: 22:39 [facility] 06/15 21:43 Order name: US LE Artery Uni Ltd [facility] 06/15 21:44 Order name: Foot Right 3 View XRAY [facility] 06/15 21:58 Order name: Tib Fib Right XRAY [facility] Administered Medications: 06/15 22:38 Drug: morphine 2 mg Route: IVP; Site: right antecubital; vc1 06/16 01:13 Follow up: Response: No adverse reaction [facility] 06/15 22:38 Drug: Zofran (Ondansetron) 4 mg Route: IVP; Site: right antecubital; vc1 06/16 01:13 Follow up: Response: No adverse reaction [facility] 06/15 22:39 Drug: NS 0.9% 1000 ml Route: IV; Rate: 1000 ml; Site: right antecubital; vc1 06/16 04:31 Follow up: Response: No adverse reaction; IV Status: Completed infusion; IV Intake: vc1 800ml 06/15 23:58 Drug: Clindamycin 900 mg Route: IVPB; Infused Over: 30 mins; Site: right antecubital; vc1 06/16 01:00 Follow up: Response: No adverse reaction; IV Status: Completed infusion; IV Intake: [id number] Disposition Summary: 06/16/21 00:31 Discharge Ordered Location: Home [facility] Problem: new [facility] Symptoms: have improved [facility] Condition: Stable [facility] Diagnosis - Cellulitis of right lower limb - Possible right foot second digit soft tissue [facility] foreign body(06/16/21 00:35) Followup: [facility] - With: Private Physician - When: 2 - 3 days - Reason: Worsening of condition, Recheck today's complaints, Continuance of care, Re-evaluation by your physician Followup: [facility] - With: Dino High DPM - When: 2 - 3 days - Reason: Worsening of condition, Recheck today's complaints Discharge Instructions: - Discharge Summary Sheet [facility] - Cellulitis, Adult, [id number] [facility] Forms: - Medication Reconciliation Form [facility] - Thank You Letter [facility] - Antibiotic Education [facility] - Prescription Opioid Use [facility] Prescriptions: - Cephalexin 500 mg Oral Capsule - take 1 capsule by ORAL route every 6 hours for 10 days; 40 capsule; Refills: 0, [facility] Product Selection Permitted - Bactrim DS 800-160 mg Oral Tablet - take 1 tablet by ORAL route every 12 hours for 10 days; 20 tablet; Refills: 0, [facility] Product Selection Permitted - Tylenol-Codeine #3 300 mg-30 mg Oral - take 2 tablet by ORAL route every 6 hours As needed; 15 tablet; Refills: 0, [facility] Product Selection Permitted Signatures: Dispatcher [employer] [facility] Dmitry Montez, GROUND SERVICES INSTRUCTOR-C GROUND SERVICES INSTRUCTOR-Cla1 Brent Thompson MD MD [facility] Khloe Ballard RN RN vc1 Corrections: (The following items were deleted from the chart) 06/15 22:33 21:46 CREATINE PHOSPHOKINASE+[id number].BRZ ordered. [facility] 06/16 00:35 00:31 Cellulitis of right lower limb [place] [id number]
[2021-06-16 01:26] VITALS: TEMP 96.9
[2021-06-16 01:30] VITALS: BP 106/81; O2SAT 96
--- NOTE | 2021-06-16 10:05 | RAD REPORT ---
EXAM DESCRIPTION: RAD - Tib Fib Right - 06/15/2021 10:29 pm CLINICAL HISTORY: Right leg pain FINDINGS: No fracture is seen. No bony lesion visualized
--- NOTE | 2021-06-16 10:08 | RAD REPORT ---
EXAM DESCRIPTION: Mirian Single View06/15/2021 10:29 pm CLINICAL HISTORY: Congestion COMPARISON: May 2021 FINDINGS: The lungs appear clear of acute infiltrate. The heart is normal size IMPRESSION: No acute abnormalities displayed
[2021-06-16 14:10] LABS: Magnesium 2.1
--- NOTE | 2021-06-16 18:41 | RAD REPORT ---
EXAM DESCRIPTION: USExtremity Venous Uni Ltd06/15/2021 11:31 pm CLINICAL HISTORY: 50 years Female Pain; swelling TECHNIQUE: Multiple grayscale, color Doppler and spectral analysis sonographic images of the right l eg were obtained utilizing a high-frequency linear array transducer supplemented with compression and augmentation techniques. COMPARISON: None. FINDINGS: Common femoral, greater saphenous, femoral, popliteal and calf veins shows normal compress ibility, color flow and augmentation. IMPRESSION: No sonographic evidence of right lower extremity deep venous thrombosis. Electronically signed by: Tito Stuart MD 06/15/2021 11:55 PM TELEGRAPHIC SERVICE DISPATCHER Due to temporary technical issues with the PACS/Fluency reporting system, reports are being signed by the in house radiologists without review as a courtesy to insure prompt reporting. The interpreting radiologist is fully responsible for the content of the report.
--- NOTE | 2021-06-16 18:50 | RAD REPORT ---
EXAM DESCRIPTION: US - Lower Extremity Artery Uni Ltd - 06/15/2021 11:32 pm CLINICAL HISTORY: 50 years, Female, Pain;Swelling Lower Extremity Artery Uni Ltd COMPARISON: None. FINDINGS: Multiple grayscale images and duplex Doppler ultrasound of the bilateral arterial system w as performed with color flow, spectral waveform and peak systolic velocities. Right common femoral artery peak systolic velocity of 95 cm/sec. Right superficial femoral artery proximal peak systolic velocity of 86 cm/sec. Right superficial femoral artery mid aspect peak systolic velocity of 93 cm/sec. Right superficial femoral artery distal aspect peak systolic velocity of 95 cm/sec. Right popliteal artery peak systolic velocity of 48 cm/sec. Right posterior tibial artery peak systolic velocity of 58 cm/sec. Right dorsalis pedis artery peak systolic velocity of 21 cm/sec. There are triphasic and distal biphasic waveform at the dorsalis pedis. IMPRESSION: NORMAL RIGHT LOWER EXTREMITY ARTERIAL ULTRASOUND WITH NO EVIDENCE FOR SIGNIFICANT FOCAL STENOSIS AND/OR OCCLUSION. Electronically signed by: Cayetano Cramer MD 06/15/2021 11:59 PM NEEDLE POLISHER Due to temporary technical issues with the PACS/Fluency reporting system, reports are being signed by the in house radiologists without review as a courtesy to insure prompt reporting. The interpreting radiologist is fully responsible for the content of the report.
--- NOTE | 2021-06-16 20:01 | RAD REPORT ---
EXAM DESCRIPTION: RAD - Foot Right 3 View - 06/15/2021 10:28 pm CLINICAL HISTORY: 50 years, Female, PAIN COMPARISON: None FINDINGS: 3 X-ray views of the Right foot (Frontal, lateral and oblique views) were performed. There is mild bony osteopenia. No areas of acute bony injuries were demonstrated. No gross articular or soft tissue abnormality is identified. There are no gross intraosseous lesions. No periosteal day ction were seen. There is a tiny linear area of high density material within the soft tissue base l ateral proximal phalanx second toe measuring approximately 2.6 mm perhaps corresponding to radiopaque foreign body. IMPRESSION: Possible 2.6 mm radiopaque foreign body within the soft tissue base of the proximal phal anx second toe. No evidence for acute bony injuries. Electronically signed by: Cayetano Cramer MD 06/15/2021 11:42 PM SALES AND RETAIL MANAGEMENT RECRUITER Due to temporary technical issues with the PACS/Fluency reporting system, reports are being signed by the in house radiologists without review as a courtesy to insure prompt reporting. The interpreting radiologist is fully responsible for the content of the report.
--- NOTE | 2021-06-17 14:45 | EKG ---
Test Date: 2021-06-15 Test Time: 23:06:27 Composite Worker: KELLI MEASUREMENT RESULTS: Intervals: Rate: 68 [place]: 194 QRSD: 122 QT: 428 QTc: 455 [place]: P: 68 [place]: 194 QRS: -57 T: -1 INTERPRETIVE STATEMENTS: Normal sinus rhythm Left axis deviation Septal infarct, age undetermined Abnormal ECG Compared to ECG 06/03/2021 12:50:38 No significant changes Electronically Signed On 06-17-21 14:43:52 SUPERVISOR SPECIAL EFFECTS by Justin Real
== END 2021-06-16 01:14 | disposition home or self-care (01) ==
LOC: ER 19:59
DX: L03.115 Cellulitis of right lower limb (principal); N17.9 Acute kidney failure, unspecified
CPT/HCPCS: 36415; 71045; 80048; 80076; 82550; 83735; 83880; 84484; 85025; 85610; 87040; 93005; 93926; 93971; 96361; 96365; 96375; 99284; J2270; J2405; J7030

== ENCOUNTER 2021-06-21 12:05 | Inpatient (IN) | payer SELFPAY ==
[2021-06-21 13:17] LABS: Hematocrit 46.9 % (36.0-45.0); Lymphocytes % 20.3 % (15.3-44.8); MPV 9.1 fL (7.6-11.3); RBC Red Blood Cell Count 4.28 M/uL (3.86-4.86)
[2021-06-21] MEDS ORDERED: NA CHLORIDE 0.9% 500 ML ONE (13:26)
[2021-06-21 13:29] LABS: Protime INR 9.23
[2021-06-21 13:36] LABS: ALT/SGPT 47 U/L (12-78); AST/SGOT 24 U/L (15-37); Albumin 2.9 g/dL (3.4-5.0); Alkaline Phosphatase 90 U/L (45-117); BUN Blood Urea Nitrogen 9 mg/dL (7-18); Bicarbonate 26 mmol/L (21-32); Bilirubin Direct < 0.1 mg/dL (0-0.2); Bilirubin Total 0.2 mg/dL (0.2-1.0); Glucose Level 146 mg/dL (74-106); NT PRO-BNP 149 pg/mL (<125); Potassium 4.2 mmol/L (3.5-5.1); Protein, Total 6.8 g/dL (6.4-8.2); Sodium Level 141 mmol/L (136-145)
[2021-06-21] MEDS ORDERED: VITAMIN K (ADULT) 10 MG/ML ONE (14:09)
--- NOTE | 2021-06-21 14:27 | ER ---
Nurse's Notes [facility] Name: Raiza Whaley Age: 50 yrs Sex: Female : 1970 Arrival Date: 06/21/2021 Time: 12:10 Bed 18 Private MD: Bruce Soares E Diagnosis: Abnormal coagulation profile Presentation: 06/21 12:11 Chief complaint: Patient states: Went to Dr. Luciano to have INR checked and was told it ap3 was so high the number wouldn't register for their machine so Ankita directed patient here. Pt has cellulitis to right foot and 2 blood clots in her lungs and was hospitalized 2 weeks ago, stayed 7 days and was discharged on two different blood thinners but doesn't know the names. Coronavirus screen: Vaccine status: Patient reports being unvaccinated. Client denies travel out of the [place] in the last 14 days. Ebola Screen: Patient negative for fever greater than or equal to 101.5 degrees Fahrenheit, and additional compatible Ebola Virus Disease symptoms Patient denies exposure to infectious person. Patient denies travel to an Ebola-affected area in the 21 days before illness onset. Initial Sepsis Screen: Does the patient meet any 2 criteria? HR > 90 bpm. Does the patient have a suspected source of infection? Yes:. Risk Assessment: Do you want to hurt yourself or someone else? Patient reports no desire to harm self or others. 12:11 Method Of Arrival: Ambulatory ap3 12:11 Acuity: PATRIZIA 3 ap3 Triage Assessment: 12:18 General: Appears uncomfortable, obese, unkempt, Behavior is calm, cooperative, ap3 appropriate for age. Pain: Complains of pain in right foot. 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 - Social history:: Smoking status: Patient reports the use of cigarette tobacco products, denies chronic smoking, but will smoke occasionally. Screenin:47 Abuse screen: Denies threats or abuse. Denies injuries from another. Nutritional ab2 screening: No deficits noted. Tuberculosis screening: No symptoms or risk factors identified. Fall Risk None identified. Assessment: 12:45 General: Appears in no apparent distress. comfortable, Behavior is calm, cooperative, ab2 appropriate for age. Pain: Complains of pain in right foot Pain radiates to right leg Pain currently is 9 out of 10 on a pain scale. Quality of pain is described as burning. Neuro: Level of Consciousness is awake, alert, obeys commands, Oriented to person, place, time, situation, Appropriate for age Crystal Evaluator are equal bilaterally Moves all extremities. Gait is steady, Speech is normal. Cardiovascular: Denies chest pain, shortness of breath, Heart tones S1 S2 present Patient's skin is warm and dry. Rhythm is sinus rhythm Chest pain is denied. Respiratory: No deficits noted. Airway is patent Parent/caregiver reports the patient having having blood clots in lungs. GI: No deficits noted. No signs and/or symptoms were reported involving the gastrointestinal system. Abdomen is round non-distended, obese, bruised on right lower quadrant and left lower quadrant. : No deficits noted. No signs and/or symptoms were reported regarding the genitourinary system. EENT: No deficits noted. No signs and/or symptoms were reported regarding the EENT system. Derm: No deficits noted. No signs and/or symptoms reported regarding the dermatologic system. Skin is intact, Skin is dry, Skin is pale. Musculoskeletal: No deficits noted. No signs and/or symptoms reported regarding the musculoskeletal system. 13:29 Reassessment: GALLO Morse notified of of critical lab values: PT 108.6 \T\ INR 9.23. ss 15:05 Reassessment: Patient appears in no apparent distress at this time. Pt given sandhich ab2 and water per patient request. at bedside awaiting room for admission. 16:20 Reassessment: Patient appears in no apparent distress at this time. Begin plasma ab2 transfusion at this time. Consent obtained. 2 nurses verified at patient bedside. 16:25 Reassessment: Patient appears in no apparent distress at this time. Transfusion still ab2 going, pt denies any signs of reaction. 16:30 Reassessment: Patient appears in no apparent distress at this time. No s/s of ab2 transfusion reaction. Vitals stable. 16:35 Reassessment: Patient appears in no apparent distress at this time. Pt denies any s/s ab2 of transfusion reaction. Vital signs remain stable. 16:50 Reassessment: Patient appears in no apparent distress at this time. Denies s/s of ab2 reaction. 17:20 Reassessment: Patient appears in no apparent distress at this time. No s/s of reaction ab2 noted. Vitals remain stable. at bedside. 17:45 Reassessment: Patient appears in no apparent distress at this time. Transfusion ab2 complete no signs or symptoms of reaction noted. Vital Signs: 12:11 BP 112 / 80; Pulse 102; Resp 18; Temp 97.2; Pulse Ox 95% ; Weight 104.33 kg; Height 5 ap3 ft. 6 in. (167.64 cm); 13:20 BP 97 / 66; Pulse 85; Resp 16; Pulse Ox 98% on R/A; ab2 14:59 BP 91 / 55; Pulse 83; Resp 16; Pulse Ox 98% on R/A; Pain 0/10; ab2 15:30 BP 101 / 56; Pulse 90; Resp 18; Pulse Ox 97% on R/A; ab2 16:20 BP 96 / 48; Pulse 92; Resp 18; Temp 97.9; Pulse Ox 98% on R/A; ab2 16:25 BP 103 / 52; Pulse 94; Resp 18; Temp 97.9(O); Pulse Ox 99% on R/A; ab2 16:30 BP 109 / 56; Pulse 97; Resp 18; Temp 98.0(O); Pulse Ox 99% on R/A; ab2 16:35 BP 101 / 57; Pulse 91; Resp 18; Temp 98.0(O); Pulse Ox 98% on R/A; ab2 16:50 BP 97 / 66; Pulse 90; Resp 18; Temp 98.0(O); Pulse Ox 98% on R/A; Pain 7/10; ab2 17:20 BP 93 / 58; Pulse 87; Resp 18; Temp 98.1(O); Pulse Ox 99% on R/A; ab2 17:45 BP 96 / 55; Pulse 83; Resp 18; Temp 98.0(O); Pulse Ox 98% on R/A; ab2 18:18 BP 113 / 64; Pulse 93; Resp 18; Pulse Ox 97% on R/A; ab2 12:11 Body Mass Index 37.12 (104.33 kg, 167.64 cm) ap3 ED Course: 12:10 Patient arrived in ED. am2 12:10 Bruce Soares MD is Private Physician. am2 12:14 You Vazquez is Primary Nurse. ab2 12:16 Bhupinder Kahn PA is PHCP. cp 12:16 Sammie Gallegos MD is Attending Physician. cp 12:18 Triage completed. ap3 12:18 Arm band placed on right wrist. ap3 12:47 No provider procedures requiring assistance completed. Inserted saline lock: 18 gauge ab2 in left forearm, using aseptic technique. Blood collected. 12:48 Patient has correct armband on for positive identification. Bed in low position. Call ab2 light in reach. Side rails up X2. 13:53 Type And Screen Sent. tp1 13:53 Initial lab(s) drawn, by me, sent to lab. tp1 14:26 Stevan Valerio is Hospitalizing Provider. cp 18:59 IV discontinued, intact, bleeding controlled, No redness/swelling at site. Pressure ab2 dressing applied. 18:59 Inserted saline lock: 20 gauge in right antecubital area, using aseptic technique. ab2 Administered Medications: 13:33 Drug: NS 0.9% 500 ml Route: IV; Rate: bolus; Site: right antecubital; ab2 15:07 Follow up: Response: No adverse reaction ab2 15:07 Follow up: IV Status: Completed infusion ab2 14:10 Drug: Vitamin K1 (phytonadione) 10 mg Route: Sub-Q; Site: left upper arm; ab2 15:06 Follow up: Response: No adverse reaction ab2 Outcome: 14:27 Decision to Hospitalize by Provider. cp 20:21 Admitted to Med/surg accompanied by nurse, via wheelchair, Report called to [place]odia de [place] vega1 ARTEM Palma 20:31 Patient left the ED. sf1 Signatures: Tabitha Wilhelm RN RN ss Bhupinder Kahn PA PA cp Hetal Tillman am2 Hetal Mendosa RN RN ap3 Betty Whitman tp1 You Vazquez ab2 Ted, Adriana, RN RN sf1
--- NOTE | 2021-06-21 14:27 | EDPHYS ---
Physician Documentation [facility] Name: Raiza Whlaey Age: 50 yrs Sex: Female : 1970 Arrival Date: 06/21/2021 Time: 12:10 Bed 18 Private MD: Bruce Soares E ED Physician Sammie Gallegos HPI: 06/21 13:05 This 50 yrs old Female presents to ER via Ambulatory with complaints of Abnormal Lab cp Results. 13:05 Patient referred to ED for evaluation after elevated INR level. Patient reports taking cp prescribed Coumadin daily for history of pulmonary embolism and DVT. Patient denies dark and/or tarry stools. 13:05 Associated signs and symptoms: Pertinent negatives: abdominal pain, chest pain, cp constipation, diarrhea, fever. 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 - Social history:: Smoking status: Patient reports the use of cigarette tobacco products, denies chronic smoking, but will smoke occasionally. ROS: 13:10 Constitutional: Negative for body aches, chills, fever, poor PO intake. cp 13:10 Cardiovascular: Negative for chest pain, edema, palpitations. cp 13:10 Respiratory: Negative for cough, shortness of breath, wheezing. 13:10 Abdomen/GI: Negative for abdominal pain, nausea, vomiting, and diarrhea, constipation, cp black/tarry stool, rectal bleeding. 13:10 : Negative for urinary symptoms. 13:10 Neuro: Negative for altered mental status, dizziness, headache, syncope, weakness. 13:10 All other systems are negative. Exam: 13:15 Constitutional: The patient appears in no acute distress, alert, awake, cp non-diaphoretic, non-toxic, well developed, well nourished. 13:15 Head/Face: Normocephalic, atraumatic. cp 13:15 Eyes: Periorbital structures: appear normal, Conjunctiva: normal, no exudate, no injection, Sclera: no appreciated abnormality, Lids and lashes: appear normal, bilaterally. 13:15 ENT: External ear(s): are unremarkable, Nose: is normal, Mouth: Lips: moist, Oral mucosa: moist, Posterior pharynx: Airway: no evidence of obstruction, patent. 13:15 Chest/axilla: Inspection: normal. 13:15 Cardiovascular: Rate: tachycardic, Rhythm: regular, Edema: is not appreciated, JVD: is not appreciated. 13:15 Respiratory: the patient does not display signs of respiratory distress, Respirations: normal, no use of accessory muscles, no retractions, labored breathing, is not present, Breath sounds: are clear throughout, no decreased breath sounds, no stridor, no wheezing. 13:15 Abdomen/GI: Inspection: abdomen appears normal, Palpation: abdomen is soft and non-tender, in all quadrants. 13:15 Skin: no obvious bruising noted. 13:15 Neuro: Orientation: to person, place \\T\\ time. Mentation: is normal, Motor: moves all fours, strength is normal, Sensation: is normal. 13:30 ECG was reviewed by the Attending Physician. cp Vital Signs: 12:11 BP 112 / 80; Pulse 102; Resp 18; Temp 97.2; Pulse Ox 95% ; Weight 104.33 kg; Height 5 ap3 ft. 6 in. (167.64 cm); 13:20 BP 97 / 66; Pulse 85; Resp 16; Pulse Ox 98% on R/A; ab2 14:59 BP 91 / 55; Pulse 83; Resp 16; Pulse Ox 98% on R/A; Pain 0/10; ab2 15:30 BP 101 / 56; Pulse 90; Resp 18; Pulse Ox 97% on R/A; ab2 16:20 BP 96 / 48; Pulse 92; Resp 18; Temp 97.9; Pulse Ox 98% on R/A; ab2 16:25 BP 103 / 52; Pulse 94; Resp 18; Temp 97.9(O); Pulse Ox 99% on R/A; ab2 16:30 BP 109 / 56; Pulse 97; Resp 18; Temp 98.0(O); Pulse Ox 99% on R/A; ab2 16:35 BP 101 / 57; Pulse 91; Resp 18; Temp 98.0(O); Pulse Ox 98% on R/A; ab2 16:50 BP 97 / 66; Pulse 90; Resp 18; Temp 98.0(O); Pulse Ox 98% on R/A; Pain 7/10; ab2 17:20 BP 93 / 58; Pulse 87; Resp 18; Temp 98.1(O); Pulse Ox 99% on R/A; ab2 17:45 BP 96 / 55; Pulse 83; Resp 18; Temp 98.0(O); Pulse Ox 98% on R/A; ab2 18:18 BP 113 / 64; Pulse 93; Resp 18; Pulse Ox 97% on R/A; ab2 12:11 Body Mass Index 37.12 (104.33 kg, 167.64 cm) ap3 MDM: 12:28 Patient medically screened. cp 14:30 Data reviewed: vital signs, nurses notes, lab test result(s), EKG. cp 14:30 Test interpretation: by ED physician or midlevel provider: ECG. Counseling: I had a cp detailed discussion with the patient and/or guardian regarding: the historical points, exam findings, and any diagnostic results supporting the discharge/admit diagnosis, lab results, radiology results, the need for further work-up and treatment in the hospital. Physician consultation: Stevan Valerio was contacted at 14:25, regarding admission, to the telemetry unit. patient's condition. 06/21 13:02 Order name: Basic Metabolic Panel cp 06/21 16:04 Interpretation: Normal except: CL 109; GLUC 146; GFR 64. cp 06/21 13:02 Order name: CBC with Diff; Complete Time: 16:04 cp 06/21 13:24 Interpretation: Normal except: HCT 46.9; MCV 109.6; MCHC 31.6. cp 06/21 13:02 Order name: LFT's cp 06/21 13:02 Order name: Magnesium cp 06/21 13:02 Order name: NT PRO-BNP cp 06/21 13:02 Order name: PT-INR; Complete Time: 13:31 cp 06/21 13:02 Order name: Troponin HS cp 06/21 13:02 Order name: Ptt, Activated; Complete Time: 13:31 cp 06/21 13:31 Order name: Type And Screen cp 06/21 14:28 Order name: CBC Smear Scan; Complete Time: 16:04 EDMS 06/21 14:47 Order name: Fresh Frozen Plasma EDMS 06/21 15:55 Order name: COVID-19/FLU A+B (Document "Date of Onset" if Symptomatic) ab2 06/21 13:02 Order name: EKG; Complete Time: 13:03 cp 06/21 13:02 Order name: Cardiac monitoring; Complete Time: 13:03 cp 06/21 13:02 Order name: EKG - Nurse/Tech; Complete Time: 13:20 cp 06/21 13:02 Order name: IV Saline Lock; Complete Time: 13:03 cp 06/21 13:02 Order name: Labs collected and sent; Complete Time: 13:03 cp 06/21 13:02 Order name: O2 Per Protocol; Complete Time: 13:03 cp 06/21 13:02 Order name: O2 Sat Monitoring; Complete Time: 13:03 cp EC:30 Rate is 79 beats/min. Rhythm is regular. NV interval is prolonged at 202 msec. QRS cp interval is prolonged at 130 msec. QT interval is normal. T waves are Inverted in lead aVR. Interpreted by me. Reviewed by me. Administered Medications: 13:33 Drug: NS 0.9% 500 ml Route: IV; Rate: bolus; Site: right antecubital; ab2 15:07 Follow up: Response: No adverse reaction ab2 15:07 Follow up: IV Status: Completed infusion ab2 14:10 Drug: Vitamin K1 (phytonadione) 10 mg Route: Sub-Q; Site: left upper arm; ab2 15:06 Follow up: Response: No adverse reaction ab2 Disposition: 15:00 Chart complete. cp 06/22 12:54 Co-signature as Attending Physician, Sammie Gallegos MD I agree with the assessment and sp3 plan of care. Disposition Summary: 06/21/21 14:27 Hospitalization Ordered Hospitalization Status: Inpatient Admission cp Provider: Stevan Valerio cp Location: Telemetry/MedSurg (Inpatient) cp Condition: Stable cp Problem: new cp Symptoms: have improved cp Bed/Room Type: Standard Room Assignment: 218(06/21/21 18:45) dw Diagnosis - Abnormal coagulation profile cp Forms: - Medication Reconciliation Form cp - SBAR form cp Signatures: Dispatcher [employer] Rosa Elena Rosario RN RN dw Bhupinder Kahn PA PA cp Prokisch, Amanda, RN RN ap3 Sammie Gallegos MD MD sp3 You Vazquez2 Corrections: (The following items were deleted from the chart) 06/21 18:45 14:27 cp dw
[2021-06-21 14:28] LABS: Blood Morphology Comment NOTED (NOT SEEN); Macrocytosis 1+; Platelet Estimate ADEQ; White Blood Cell Scan OK (OK)
[2021-06-21] MEDS ORDERED: NA CHLORIDE 0.9% 250 ML ONE (16:15)
[2021-06-21 17:07] LABS: SARS-COV-2 RT PCR NEGATIVE (NEGATIVE)
[2021-06-21 18:15] LABS: Magnesium 1.7
--- NOTE | 2021-06-21 18:36 | P.HP ---
Certification for Inpatient Patient admitted to: Inpatient With expected LOS: >2 Midnights Practitioner: I am a practitioner with admitting privileges, knowledge of patient current condition, hospital course, and medical plan of care. Services: Services provided to patient in accordance with Admission requirements found in Title 42 Section 412.3 of the Code of Federal Regulations Patient History Date of Service: 06/21/21 Reason for admission: Elevated INR History of Present Illness: 50-year-old woman recently diagnosed with pulmonary embolism on Coumadin anticoagulant, history of COPD, hypertension, atrial fibrillation and diabetes was referred to the emergency department due to elevated INR. Patient went to her PCPs office to get her INR checked and was noted to be very elevated. Her PCP referred her to the emergency department. INR done in the emergency department is elevated to 9. Patient denies any bleeding episode, no melena, no hematemesis, no hematochezia. She is not anemic. ED provider gave patient 10 mg vitamin K and 2 units FFP to reverse INR. Patient denies any shortness of breath or cough or wheezing. She is admitted for further management. Allergies No Known Allergies Allergy (Unverified 08/13/17 11:16) Home Medications: ALPRAZolam [Alprazolam] 1 mg PO BID 06/04/21 Bupropion HCl [Wellbutrin Xl] 150 mg PO BID 06/04/21 Nitroglycerin 0.4 mg SL PRN 06/04/21 Aspirin [Aspirin EC 81 MG] 81 mg PO DAILY #30 tablet. 06/10/21 Atorvastatin Calcium [Lipitor] 40 mg PO BEDTIME #30 tab 06/10/21 Metoprolol Tartrate 12.5 mg PO BID #30 tablet 06/10/21 Mometasone/Formoterol [Dulera 200 Mcg/5 Mcg Inhaler] 2 puff IH BID #1 inhaler 06/10/21 Nystatin Powder [Mycostatin (Powder)*] 1 appl TOP BID #1 btl 06/10/21 Warfarin Sodium [Coumadin*] 7.5 mg PO DAILY 5 PM #30 tab 06/10/21 predniSONE [Prednisone*] 20 mg PO BID #6 tab 06/10/21 - Past Medical/Surgical History Diabetic: Yes -: Anxiety disorder -: Diabetes mellitus -: CAD -: Hyperlipidemia -: ARF -: CHF -: COPD -: HTN -: Afib -: [place] -: adhesion removal -: tubal ligation -: Heart cath Psychosocial/ Personal History: Unable to be obtained, patient lives at [facility] - Family History Mother -: Lung disease, Cancer Notes: CA and COPD Father -: Diabetes, Stroke - Social History Alcohol use: Yes CD- Drugs: No Caffeine use: Yes Review of Systems Other: Patient denies any fever or chills. She denies any chest pain. She denies any abdominal pain. Except as documented, all other systems reviewed and negative. Physical Examination - Physical Exam General: Alert, In no apparent distress, Oriented x3 HEENT: Mucous membr. moist/pink, Sclerae nonicteric Neck: Supple, JVD not distended Respiratory: Clear to auscultation bilaterally, Normal air movement Cardiovascular: Regular rate/rhythm, Normal S1 S2, Edema (Bilateral pedal edema, worse on the right.) Capillary refill: <2 Seconds Gastrointestinal: Normal bowel sounds, Soft and benign, Non-distended, No tenderness Musculoskeletal: No swelling, Tenderness (Dorsum of right foot) Integumentary: No erythema, No cyanosis Neurological: Normal speech, Normal strength at 5/5 x4 extr, Cranial nerves 3-12 intact Lymphatics: No axilla or inguinal lymphadenopathy - Studies Laboratory Data (last 24 hrs) 06/21/21 13:00: PT 108.6 H, INR 9.23 H*, APTT 59.7 H 06/21/21 13:00: WBC 5.00 D, Hgb 14.8, Hct 46.9 H, Plt Count 152 06/21/21 13:00: Sodium 141, Potassium 4.2, BUN 9, Creatinine 0.92, Glucose 146 H, Magnesium 1.7, Total Bilirubin 0.2, AST 24, ALT 47, Alkaline Phosphatase 90 Assessment and Plan - Problems (Diagnosis) (1) Supratherapeutic INR Current Visit: Yes Status: Acute (2) History of pulmonary embolism Current Visit: Yes Status: Acute (3) COPD (chronic obstructive pulmonary disease) Onset Date: 08/14/17 Current Visit: No Status: Acute Qualifiers: COPD type: COPD with acute exacerbation Qualified Code(s): J44.1 - Chronic obstructive pulmonary disease with (acute) exacerbation (4) Obesity Current Visit: No Status: Chronic Qualifiers: Obesity type: due to excess calories Obesity classification: adult class 1 (BMI 30 - 34.9) Serious obesity comorbidity presence: with serious comorbidity Body mass index: BMI 31.0-31.9 Qualified Code(s): E66.09 - Other obesity due to excess calories; Z68.31 - Body mass index (BMI) 31.0-31.9, adult; Z68.31 - Body mass index (BMI) 31.0-31.9, adult - Plan Admit patient to the medical floor. Patient given vitamin K and FFP in the ED. Hold Coumadin Monitor PT and INR daily. Resume Coumadin once INR is therapeuti(2-3). Bronchodilators as needed Insulin sliding scale for glucose management. Pain management as needed. Gabapentin for neuropathy. - Advance Directives Does patient have a Living Will: No Does patient have a Durable POA for Healthcare: No
[2021-06-21] MEDS ORDERED: ONDANSETRON 4 MG/2 ML VIAL IV PRN (20:19)
[2021-06-21] MEDS: IPRATROPIUM BROM 0.5MG/2.5ML NEB SCH (21:30)
[2021-06-21 22:00] VITALS: BMI 37.1
[2021-06-21] MEDS: INSULIN -REGULAR HUMAN 50 UNIT/0.5 ML ML SQ SCH (22:20)
[2021-06-21] MEDS: GABAPENTIN 100 MG CAP PO SCH (22:20)
[2021-06-22] MEDS ORDERED: ALPRAZOLAM 0.25 MG TABLET PO ONE (00:10)
[2021-06-22] MEDS ORDERED: ALPRAZOLAM 1 MG TABLET PO ONE (00:20)
[2021-06-22] MEDS ORDERED: ALPRAZOLAM 1 MG TABLET ONE (00:26)
[2021-06-22 00:52] LABS: Arterial Blood Carboxyhemoglob 3.6 % (0-1.5); Blood Gas Oxyhemoglobin 90.1 % (94-97)
[2021-06-22] MEDS: IPRATROPIUM BROM 0.5MG/2.5ML NEB SCH ×4 (01:40→19:25)
[2021-06-22 06:16] LABS: Protime INR 3.55
[2021-06-22 06:17] LABS: Absolute Lymphocytes (CBC) 0.8 K/uL (0.7-4.9); Hematocrit 43.3 % (36.0-45.0); Lymphocytes % 18.7 % (15.3-44.8); MPV 8.8 fL (7.6-11.3); RBC Red Blood Cell Count 3.95 M/uL (3.86-4.86)
[2021-06-22 06:41] LABS: Phosphorus 2.5 mg/dL (2.5-4.9); Potassium 4.3 mmol/L (3.5-5.1)
[2021-06-22] MEDS: INSULIN -REGULAR HUMAN 50 UNIT/0.5 ML ML SQ SCH ×4 (07:30→21:00)
[2021-06-22] MEDS: LIDOCAINE 4% PATCH TOP SCH (09:47)
--- NOTE | 2021-06-22 15:53 | P.PN ---
Subjective Date of Service: 06/22/21 Chief Complaint: Elevated INR No complaint this morning. She was placed on oxygen therapy last night Oxygen saturations 97% on 2 L. Physical Examination - Vital Signs Temperature: 97.4 F Blood Pressure: 103/55 Pulse: 70 Respirations: 18 Pulse Ox (%): 92 - Physical Exam General: Alert, In no apparent distress, Oriented x3, Obese HEENT: Mucous membr. moist/pink Neck: JVD not distended Respiratory: Clear to auscultation bilaterally, Normal air movement Cardiovascular: No edema, Regular rate/rhythm, Normal S1 S2 Gastrointestinal: Soft and benign, Non-distended Musculoskeletal: No swelling Integumentary: Erythema (Mild erythema bilateral feet) Neurological: Normal strength at 5/5 x4 extr - Studies Laboratory Data (last 24 hrs) 06/21/21 13:00: Magnesium 1.7 Assessment And Plan - Current Problems (Diagnosis) (1) Supratherapeutic INR Current Visit: Yes Status: Acute (2) History of pulmonary embolism Current Visit: Yes Status: Acute (3) COPD (chronic obstructive pulmonary disease) Onset Date: 08/14/17 Current Visit: No Status: Acute Qualifiers: COPD type: COPD with acute exacerbation Qualified Code(s): J44.1 - Chronic obstructive pulmonary disease with (acute) exacerbation (4) Obesity Current Visit: No Status: Chronic Qualifiers: Obesity type: due to excess calories Obesity classification: adult class 1 (BMI 30 - 34.9) Serious obesity comorbidity presence: with serious comorbidity Body mass index: BMI 31.0-31.9 Qualified Code(s): E66.09 - Other obesity due to excess calories; Z68.31 - Body mass index (BMI) 31.0-31.9, adult; Z68.31 - Body mass index (BMI) 31.0-31.9, adult - Plan Admit patient to the medical floor. Patient given vitamin K and FFP in the ED. INR improved to therapeutic level. Resume Coumadin at 5 mg daily. Monitor PT and INR daily. Bronchodilators as needed Insulin sliding scale for glucose management. Pain management as needed. Gabapentin for neuropathy. Wean off oxygen.
[2021-06-22 16:55] LABS: Magnesium 1.9
[2021-06-22] MEDS: ALBUTEROL 2.5 MG/3 ML NEB SOL NEB PRN (19:25)
[2021-06-22] MEDS: DULERA IH SCH (21:00)
[2021-06-22] MEDS: NYSTATIN PWDR 100000 UNIT/GM TOP SCH (21:00)
[2021-06-22] MEDS: METOPROLOL TAR 25 MG TAB PO SCH (21:00)
[2021-06-22] MEDS: ALPRAZOLAM 1 MG TABLET PO SCH (21:24)
[2021-06-22] MEDS: GABAPENTIN 100 MG CAP PO SCH (21:25)
[2021-06-22] MEDS: BUPROPRION HCL S.R. 150MG TAB PO SCH (21:25)
[2021-06-22] MEDS: ATORVASTATIN 40 MG TAB PO SCH (21:25)
[2021-06-23] MEDS: IPRATROPIUM BROM 0.5MG/2.5ML NEB SCH ×4 (01:56→20:05)
[2021-06-23] MEDS: ALBUTEROL 2.5 MG/3 ML NEB SOL NEB PRN (01:56)
[2021-06-23] MEDS: ACETAMINOPHEN 500 MG TAB PO PRN (05:26)
[2021-06-23 06:12] LABS: Protime INR 1.41
[2021-06-23] MEDS: LIDOCAINE 4% PATCH TOP SCH (09:00)
[2021-06-23] MEDS: DULERA IH SCH ×2 (09:00→21:00)
[2021-06-23] MEDS: METOPROLOL TAR 25 MG TAB PO SCH ×2 (09:00→21:00)
[2021-06-23] MEDS: ASPIRIN EC 81 MG TAB PO SCH (09:14)
[2021-06-23] MEDS: ALPRAZOLAM 1 MG TABLET PO SCH ×2 (09:14→21:20)
[2021-06-23] MEDS: BUPROPRION HCL S.R. 150MG TAB PO SCH ×2 (09:14→21:19)
[2021-06-23] MEDS: INSULIN -REGULAR HUMAN 50 UNIT/0.5 ML ML SQ SCH ×2 (09:15→11:30)
[2021-06-23] MEDS: NYSTATIN PWDR 100000 UNIT/GM TOP SCH ×2 (09:16→21:00)
--- NOTE | 2021-06-23 11:44 | P.PN ---
Subjective Date of Service: 06/23/21 Chief Complaint: Elevated INR Patient has no new complaint. She seems to be requiring oxygen intermittently. Physical Examination - Vital Signs Temperature: 97.1 F Blood Pressure: 105/59 Pulse: 77 Respirations: 20 Pulse Ox (%): 92 - Physical Exam General: Alert, In no apparent distress, Oriented x3 HEENT: Mucous membr. moist/pink Neck: JVD not distended Respiratory: Clear to auscultation bilaterally, Normal air movement Cardiovascular: Regular rate/rhythm, Normal S1 S2, Edema (Bilateral pedal edema) Gastrointestinal: Soft and benign, Non-distended, No tenderness Musculoskeletal: No swelling Integumentary: No rashes, No cyanosis Neurological: Normal strength at 5/5 x4 extr Lymphatics: No axilla or inguinal lymphadenopathy Assessment And Plan - Current Problems (Diagnosis) (1) Supratherapeutic INR Current Visit: Yes Status: Acute (2) History of pulmonary embolism Current Visit: Yes Status: Acute (3) COPD (chronic obstructive pulmonary disease) Onset Date: 08/14/17 Current Visit: No Status: Acute Qualifiers: COPD type: COPD with acute exacerbation Qualified Code(s): J44.1 - Chronic obstructive pulmonary disease with (acute) exacerbation (4) Obesity Current Visit: No Status: Chronic Qualifiers: Obesity type: due to excess calories Obesity classification: adult class 1 (BMI 30 - 34.9) Serious obesity comorbidity presence: with serious comorbidity Body mass index: BMI 31.0-31.9 Qualified Code(s): E66.09 - Other obesity due to excess calories; Z68.31 - Body mass index (BMI) 31.0-31.9, adult; Z68.31 - Body mass index (BMI) 31.0-31.9, adult - Plan Patient given vitamin K and FFP in the ED. INR improved and currently subtherapeutic. Continue Coumadin at 5 mg daily. Start Lovenox bridge. Monitor PT and INR daily. Bronchodilators as needed Insulin sliding scale for glucose management. Pain management as needed. Gabapentin for neuropathy. Wean off oxygen.
[2021-06-23] MEDS ORDERED: BUPROPRION HCL S.R. 150MG TAB PO SCH (12:00)
[2021-06-23] MEDS: WARFARIN SODIUM 5 MG TAB PO SCH (17:13)
[2021-06-23] MEDS: GABAPENTIN 100 MG CAP PO SCH (21:19)
[2021-06-23] MEDS: ATORVASTATIN 40 MG TAB PO SCH (21:20)
[2021-06-23] MEDS: ENOXAPARIN 100 MG/ML SYR SQ SCH (21:21)
[2021-06-24] MEDS: IPRATROPIUM BROM 0.5MG/2.5ML NEB SCH ×5 (01:45→20:00)
[2021-06-24] MEDS: ACETAMINOPHEN 500 MG TAB PO PRN (03:58)
[2021-06-24] MEDS: ALBUTEROL 2.5 MG/3 ML NEB SOL NEB PRN (05:10)
[2021-06-24 06:00] LABS: Protime INR 1.09
[2021-06-24] MEDS: BUPROPRION HCL S.R. 150MG TAB PO SCH ×2 (08:27→21:53)
[2021-06-24] MEDS: ASPIRIN EC 81 MG TAB PO SCH (08:27)
[2021-06-24] MEDS: ALPRAZOLAM 1 MG TABLET PO SCH ×2 (08:28→21:53)
[2021-06-24] MEDS: DULERA IH SCH ×2 (08:28→21:00)
[2021-06-24] MEDS: LIDOCAINE 4% PATCH TOP SCH (08:28)
[2021-06-24] MEDS: ENOXAPARIN 100 MG/ML SYR SQ SCH ×2 (08:28→21:54)
[2021-06-24] MEDS: METOPROLOL TAR 25 MG TAB PO SCH ×2 (09:00→21:00)
[2021-06-24] MEDS: NYSTATIN PWDR 100000 UNIT/GM TOP SCH ×2 (09:56→21:53)
--- NOTE | 2021-06-24 13:48 | P.PN ---
Subjective Date of Service: 06/24/21 Chief Complaint: Elevated INR Patient has no new complaint. She seems to be requiring oxygen intermittently. Physical Examination - Vital Signs Temperature: 96.9 F Blood Pressure: 100/58 Pulse: 74 Respirations: 20 Pulse Ox (%): 94 - Physical Exam General: Alert, In no apparent distress, Oriented x3 HEENT: Mucous membr. moist/pink Neck: Supple, JVD not distended Respiratory: Clear to auscultation bilaterally, Normal air movement Cardiovascular: No edema, Regular rate/rhythm, Normal S1 S2 Gastrointestinal: Soft and benign, Non-distended Musculoskeletal: No swelling Assessment And Plan - Current Problems (Diagnosis) (1) Supratherapeutic INR Current Visit: Yes Status: Acute (2) History of pulmonary embolism Current Visit: Yes Status: Acute (3) COPD (chronic obstructive pulmonary disease) Onset Date: 08/14/17 Current Visit: No Status: Acute Qualifiers: COPD type: COPD with acute exacerbation Qualified Code(s): J44.1 - Chronic obstructive pulmonary disease with (acute) exacerbation (4) Obesity Current Visit: No Status: Chronic Qualifiers: Obesity type: due to excess calories Obesity classification: adult class 1 (BMI 30 - 34.9) Serious obesity comorbidity presence: with serious comorbidity Body mass index: BMI 31.0-31.9 Qualified Code(s): E66.09 - Other obesity due to excess calories; Z68.31 - Body mass index (BMI) 31.0-31.9, adult; Z68.31 - Body mass index (BMI) 31.0-31.9, adult - Plan Patient given vitamin K and FFP in the ED. INR improved and currently subtherapeutic. Continue Coumadin at 5 mg daily. Lovenox bridge. Monitor PT and INR daily. Bronchodilators as needed Insulin sliding scale for glucose management. Pain management as needed. Gabapentin for neuropathy. Wean off oxygen as tolerated.
[2021-06-24] MEDS: WARFARIN SODIUM 5 MG TAB PO SCH (16:10)
[2021-06-24] MEDS ORDERED: LORATADINE 10 MG TAB PO ONE (17:55)
[2021-06-24] MEDS: GABAPENTIN 100 MG CAP PO SCH (21:53)
[2021-06-24] MEDS: ATORVASTATIN 40 MG TAB PO SCH (21:53)
[2021-06-25] MEDS: IPRATROPIUM BROM 0.5MG/2.5ML NEB SCH ×4 (02:15→19:52)
[2021-06-25 05:40] LABS: Protime INR 1.09
[2021-06-25] MEDS: ALBUTEROL 2.5 MG/3 ML NEB SOL NEB PRN ×2 (07:45→13:45)
[2021-06-25] MEDS: ENOXAPARIN 100 MG/ML SYR SQ SCH ×2 (08:26→20:32)
[2021-06-25] MEDS: LIDOCAINE 4% PATCH TOP SCH (08:27)
[2021-06-25] MEDS: BUPROPRION HCL S.R. 150MG TAB PO SCH ×2 (08:27→20:32)
[2021-06-25] MEDS: LORATADINE 10 MG TAB PO SCH (08:27)
[2021-06-25] MEDS: ASPIRIN EC 81 MG TAB PO SCH (08:27)
[2021-06-25] MEDS: METOPROLOL TAR 25 MG TAB PO SCH (08:27)
[2021-06-25] MEDS: ALPRAZOLAM 1 MG TABLET PO SCH ×2 (08:27→20:32)
[2021-06-25] MEDS: DULERA IH SCH ×2 (08:27→20:39)
[2021-06-25] MEDS: NYSTATIN PWDR 100000 UNIT/GM TOP SCH ×2 (08:28→20:33)
--- NOTE | 2021-06-25 15:44 | P.PN ---
Subjective Date of Service: 06/25/21 Chief Complaint: Elevated INR No new complaint. She is stable on room air. Patient with borderline low blood pressure. Physical Examination - Vital Signs Temperature: 96.9 F Blood Pressure: 89/54 Pulse: 91 Respirations: 18 Pulse Ox (%): 90 - Physical Exam General: Alert, In no apparent distress, Oriented x3 HEENT: Mucous membr. moist/pink Neck: Supple, JVD not distended Respiratory: Diminished Cardiovascular: Regular rate/rhythm, Normal S1 S2 Gastrointestinal: Soft and benign, Non-distended Musculoskeletal: No swelling Neurological: Normal strength at 5/5 x4 extr Assessment And Plan - Current Problems (Diagnosis) (1) Supratherapeutic INR Current Visit: Yes Status: Acute (2) History of pulmonary embolism Current Visit: Yes Status: Acute (3) COPD (chronic obstructive pulmonary disease) Onset Date: 08/14/17 Current Visit: No Status: Acute Qualifiers: COPD type: COPD with acute exacerbation Qualified Code(s): J44.1 - Chronic obstructive pulmonary disease with (acute) exacerbation (4) Obesity Current Visit: No Status: Chronic Qualifiers: Obesity type: due to excess calories Obesity classification: adult class 1 (BMI 30 - 34.9) Serious obesity comorbidity presence: with serious comorbidity Body mass index: BMI 31.0-31.9 Qualified Code(s): E66.09 - Other obesity due to excess calories; Z68.31 - Body mass index (BMI) 31.0-31.9, adult; Z68.31 - Body mass index (BMI) 31.0-31.9, adult - Plan Patient given vitamin K and FFP in the ED. INR improved and currently subtherapeutic. I suspect some Coumadin resistance from prior vitamin K administration. Continue Coumadin at 5 mg daily for 1 more day and titrate up as needed. Pharmacy to dose Coumadin Continue Lovenox. Monitor PT and INR daily. Bronchodilators as needed Insulin sliding scale for glucose management. Pain management as needed. Gabapentin for neuropathy. Wean off oxygen as tolerated. Hold metoprolol due to borderline hypotension.
[2021-06-25] MEDS: WARFARIN SODIUM 5 MG TAB PO SCH (16:04)
[2021-06-25] MEDS: ATORVASTATIN 40 MG TAB PO SCH (20:32)
[2021-06-25] MEDS: GABAPENTIN 100 MG CAP PO SCH (20:32)
[2021-06-25] MEDS: HYDROCODONE/APAP 5/325 MG TAB PO PRN (22:01)
[2021-06-26] MEDS: IPRATROPIUM BROM 0.5MG/2.5ML NEB SCH ×4 (02:35→19:15)
[2021-06-26 04:00] LABS: Protime INR 1.09
[2021-06-26] MEDS: ALBUTEROL 2.5 MG/3 ML NEB SOL NEB PRN (08:16)
[2021-06-26] MEDS: DULERA IH SCH ×2 (09:00→21:00)
[2021-06-26] MEDS: ALPRAZOLAM 1 MG TABLET PO SCH ×2 (10:26→21:00)
[2021-06-26] MEDS: LIDOCAINE 4% PATCH TOP SCH (10:26)
[2021-06-26] MEDS: ENOXAPARIN 100 MG/ML SYR SQ SCH ×2 (10:27→21:00)
[2021-06-26] MEDS: LORATADINE 10 MG TAB PO SCH (10:27)
[2021-06-26] MEDS: BUPROPRION HCL S.R. 150MG TAB PO SCH ×2 (10:27→21:00)
[2021-06-26] MEDS: ASPIRIN EC 81 MG TAB PO SCH (10:27)
[2021-06-26] MEDS: NYSTATIN PWDR 100000 UNIT/GM TOP SCH ×2 (10:28→21:00)
[2021-06-26] MEDS: HYDROCODONE/APAP 5/325 MG TAB PO PRN (14:59)
--- NOTE | 2021-06-26 16:20 | P.PN ---
Subjective Date of Service: 06/26/21 Chief Complaint: Elevated INR Patient has no new complain She has been requiring oxygen intermittently. She has also been borderline hypotensive. Physical Examination - Vital Signs Temperature: 97 F Blood Pressure: 98/59 Pulse: 84 Respirations: 20 Pulse Ox (%): 95 - Physical Exam General: Alert, In no apparent distress HEENT: Mucous membr. moist/pink Neck: JVD not distended Respiratory: Clear to auscultation bilaterally, Normal air movement Cardiovascular: Regular rate/rhythm, Normal S1 S2 Capillary refill: <2 Seconds Gastrointestinal: Normal bowel sounds, Soft and benign, Non-distended, No tenderness Musculoskeletal: No swelling Integumentary: No rashes Neurological: Normal strength at 5/5 x4 extr Assessment And Plan - Current Problems (Diagnosis) (1) Supratherapeutic INR Current Visit: Yes Status: Acute (2) History of pulmonary embolism Current Visit: Yes Status: Acute (3) COPD (chronic obstructive pulmonary disease) Onset Date: 08/14/17 Current Visit: No Status: Acute Qualifiers: COPD type: COPD with acute exacerbation Qualified Code(s): J44.1 - Chronic obstructive pulmonary disease with (acute) exacerbation (4) Obesity Current Visit: No Status: Chronic Qualifiers: Obesity type: due to excess calories Obesity classification: adult class 1 (BMI 30 - 34.9) Serious obesity comorbidity presence: with serious comorbidity Body mass index: BMI 31.0-31.9 Qualified Code(s): E66.09 - Other obesity due to excess calories; Z68.31 - Body mass index (BMI) 31.0-31.9, adult; Z68.31 - Body mass index (BMI) 31.0-31.9, adult - Plan Patient given vitamin K and FFP in the ED. INR has been subtherapeutic for a few days I suspect some Coumadin resistance from prior vitamin K administration. Titrate Coumadin. Increased dose today. Pharmacy to dose Coumadin Continue Lovenox. Monitor PT and INR daily. Bronchodilators as needed Insulin sliding scale for glucose management. Pain management as needed. Gabapentin for neuropathy. Wean off oxygen as tolerated. Continue to hold metoprolol due to borderline hypotension.
[2021-06-26] MEDS ORDERED: WARFARIN SODIUM 7.5 MG TAB PO SCH (17:00)
[2021-06-26] MEDS: GABAPENTIN 100 MG CAP PO SCH (21:00)
[2021-06-26] MEDS: ATORVASTATIN 40 MG TAB PO SCH (21:00)
[2021-06-27] MEDS: HYDROCODONE/APAP 5/325 MG TAB PO PRN ×2 (00:32→10:20)
[2021-06-27] MEDS: IPRATROPIUM BROM 0.5MG/2.5ML NEB SCH ×4 (02:00→19:20)
[2021-06-27 04:11] LABS: Protime INR 1.2
[2021-06-27] MEDS: LORATADINE 10 MG TAB PO SCH (08:32)
[2021-06-27] MEDS: LIDOCAINE 4% PATCH TOP SCH (08:32)
[2021-06-27] MEDS: ACETAMINOPHEN 500 MG TAB PO PRN (08:32)
[2021-06-27] MEDS: ALPRAZOLAM 1 MG TABLET PO SCH ×2 (08:32→21:30)
[2021-06-27] MEDS: ENOXAPARIN 100 MG/ML SYR SQ SCH ×2 (08:32→21:30)
[2021-06-27] MEDS: NYSTATIN PWDR 100000 UNIT/GM TOP SCH ×2 (08:33→21:00)
[2021-06-27] MEDS: BUPROPRION HCL S.R. 150MG TAB PO SCH ×2 (08:33→21:30)
[2021-06-27] MEDS: ASPIRIN EC 81 MG TAB PO SCH (08:33)
[2021-06-27] MEDS: DULERA IH SCH ×2 (08:34→21:00)
[2021-06-27] MEDS ORDERED: MORPHINE 2 MG/ML SYR IV ONE (12:30)
--- NOTE | 2021-06-27 13:42 | P.PN ---
Subjective Date of Service: 06/27/21 Chief Complaint: Elevated INR Subjective: No new changes (Complain of headache this morning) Physical Examination - Vital Signs Temperature: 97.6 F Blood Pressure: 110/62 Pulse: 84 Respirations: 20 Pulse Ox (%): 94 Assessment And Plan Discharge Plan: Home Physician Review: Patient Assessed, Agree with Above Assessment and Plan Physician Review Additional Text: 06/27/21 13:40 - Vital Signs Temperature: 97 F Blood Pressure: 98/59 Pulse: 84 Respirations: 20 Pulse Ox (%): 95 - Physical Exam General: Alert, In no apparent distress HEENT: Mucous membr. moist/pink Neck: JVD not distended Respiratory: Clear to auscultation bilaterally, Normal air movement Cardiovascular: Regular rate/rhythm, Normal S1 S2 Capillary refill: <2 Seconds Gastrointestinal: Normal bowel sounds, Soft and benign, Non-distended, No tenderness Musculoskeletal: No swelling Integumentary: No rashes Neurological: Normal strength at 5/5 x4 extr Assessment And Plan - Current Problems (Diagnosis) (1) Supratherapeutic INR Current Visit: Yes Status: Acute (2) History of pulmonary embolism Current Visit: Yes Status: Acute (3) COPD (chronic obstructive pulmonary disease) Onset Date: 08/14/17 Current Visit: No Status: Acute Qualifiers: COPD type: COPD with acute exacerbation Qualified Code(s): J44.1 - Chronic obstructive pulmonary disease with (acute) exacerbation (4) Obesity Current Visit: No Status: Chronic Qualifiers: Obesity type: due to excess calories Obesity classification: adult class 1 (BMI 30 - 34.9) Serious obesity comorbidity presence: with serious comorbidity Body mass index: BMI 31.0-31.9 Qualified Code(s): E66.09 - Other obesity due to excess calories; Z68.31 - Body mass index (BMI) 31.0-31.9, adult; Z68.31 - Body mass index (BMI) 31.0-31.9, adult - Plan INR is still low at 1.2 but improving from yesterday at 1.09 Continue Coumadin dosing Status post admitted for elevated INR of 9 with Coumadin of 7.5 mg daily after recent hospital discharge 1 week ago and recent Levaquin use. Patient was asymptomatic but given FFP and vitamin K. INR was slow to become therapeutic now Continue duo nebs as needed Continue to wean O2 as tolerated Borderline low blood pressure but stable continue to follow Continue to hold metoprolol Avoid excess pain regimen, continue Neurontin Expected further rise in INR in a.m. May need dose less than previous 7.5 mg daily daily dose Wean off oxygen as tolerated.
[2021-06-27] MEDS ORDERED: FUROSEMIDE 40 MG/4 ML VIAL IV ONE (17:24)
[2021-06-27 17:51] LABS: Arterial Blood Carboxyhemoglob 1.1 % (0-1.5); Blood Gas Oxyhemoglobin 89.8 % (94-97); Blood O2 Saturation 92.1 % (92-98.5)
[2021-06-27] MEDS: WARFARIN SODIUM 5 MG TAB PO SCH (18:09)
--- NOTE | 2021-06-27 18:39 | RAD REPORT ---
EXAM DESCRIPTION: RAD - Chest Single View - 06/27/2021 6:02 pm CLINICAL HISTORY: SOB COMPARISON: Chest Single View dated 06/15/2021; Chest Single View dated 06/04/2021; Chest Single View d ated 06/03/2021; Chest Single View dated 08/30/2017 FINDINGS: Lines: None. Lungs: Increased hazy bilateral airspace disease. Pleural: Difficult to exclude layering pleural effusions. Cardiac: Cardiomegaly. Bones: No acute fractures. Other: IMPRESSION: Worsening airspace disease bilaterally concerning for developing edema.
[2021-06-27] MEDS: ATORVASTATIN 40 MG TAB PO SCH (21:30)
[2021-06-27] MEDS: GABAPENTIN 100 MG CAP PO SCH (21:30)
[2021-06-28] MEDS: IPRATROPIUM BROM 0.5MG/2.5ML NEB SCH ×4 (02:20→20:00)
[2021-06-28] MEDS: ALBUTEROL 2.5 MG/3 ML NEB SOL NEB PRN (07:41)
[2021-06-28 07:58] LABS: Protime INR 1.43
[2021-06-28 08:01] LABS: Albumin 2.8 g/dL (3.4-5.0); Bilirubin Total 0.4 mg/dL (0.2-1.0); C-Reactive Protein 57.6 mg/L (<3.00); Potassium 4.1 mmol/L (3.5-5.1); Protein, Total 6.9 g/dL (6.4-8.2)
[2021-06-28] MEDS: ALPRAZOLAM 1 MG TABLET PO SCH ×2 (08:46→21:23)
[2021-06-28] MEDS: BUPROPRION HCL S.R. 150MG TAB PO SCH ×2 (08:47→21:22)
[2021-06-28] MEDS: ENOXAPARIN 100 MG/ML SYR SQ SCH ×2 (08:47→21:23)
[2021-06-28] MEDS: LORATADINE 10 MG TAB PO SCH (08:48)
[2021-06-28] MEDS: LIDOCAINE 4% PATCH TOP SCH (08:48)
[2021-06-28] MEDS: ASPIRIN EC 81 MG TAB PO SCH (08:48)
[2021-06-28] MEDS: NYSTATIN PWDR 100000 UNIT/GM TOP SCH ×2 (09:00→21:00)
[2021-06-28] MEDS: DULERA IH SCH (09:00)
--- NOTE | 2021-06-28 10:34 | P.PN ---
Subjective Date of Service: 06/28/21 Chief Complaint: Elevated INR Subjective: New changes (More short of breath overnight, chest x-ray shows pulmonary edema with blunting of the right costophrenic angles) Physical Examination - Vital Signs Temperature: 99.0 F Blood Pressure: 111/72 Pulse: 95 Respirations: 20 Pulse Ox (%): 94 Assessment And Plan Physician Review: Patient Assessed, Agree with Above Assessment and Plan Physician Review Additional Text: 06/27/21 13:40 - Vital Signs Temperature: 97 F Blood Pressure: 98/59 Pulse: 84 Respirations: 20 Pulse Ox (%): 95 - Physical Exam General: Alert, time, on 10 L nasal cannula O2 HEENT: Mucous membr. moist/pink Neck: JVD not distended Respiratory: Decreased breath sounds bases, no wheeze, Normal air movement Cardiovascular: Regular rate/rhythm, Normal S1 S2 Capillary refill: <2 Seconds Gastrointestinal: Normal bowel sounds, Soft and benign, Non-distended, No tenderness Musculoskeletal: No swelling Integumentary: No rashes Neurological: Normal strength at 5/5 x4 extr Assessment And Plan - Current Problems (Diagnosis) (1) Supratherapeutic INR Current Visit: Yes Status: Acute (2) History of pulmonary embolism Current Visit: Yes Status: Acute (3) COPD (chronic obstructive pulmonary disease) Onset Date: 08/14/17 Current Visit: No Status: Acute Qualifiers: COPD type: COPD with acute exacerbation Qualified Code(s): J44.1 - Chronic obstructive pulmonary disease with (acute) exacerbation (4) Obesity Current Visit: No Status: Chronic Qualifiers: Obesity type: due to excess calories Obesity classification: adult class 1 (BMI 30 - 34.9) Serious obesity comorbidity presence: with serious comorbidity Body mass index: BMI 31.0-31.9 Qualified Code(s): E66.09 - Other obesity due to excess calories; Z68.31 - Body mass index (BMI) 31.0-31.9, adult; Z68.31 - Body mass index (BMI) 31.0-31.9, adult - Plan Chest x-ray showing pulmonary edema with right pleural effusion We will obtain CT scan today Might need thoracocentesis which will include holding Coumadin again We will consult pulmonary to give input Continue IV Lasix increase to every 12, start free water restriction to less than 1.5 L/day -INR improving to 1.43 Continue 10 mg Coumadin dosing daily Status post admitted for elevated INR of 9 with Coumadin of 7.5 mg daily after recent hospital discharge 1 week ago and recent Levaquin use. Patient was asymptomatic but given FFP and vitamin K. INR was slow to become therapeutic now Continue duo nebs as needed Continue to wean O2 as tolerated Borderline low blood pressure but stable continue to follow Continue to hold metoprolol Avoid excess pain regimen, continue Neurontin Wean off oxygen as tolerated. 06/28/21 10:33 Time Spent Managing PTS Care (In Minutes): 35
[2021-06-28] MEDS ORDERED: FUROSEMIDE 40 MG/4 ML VIAL IV SCH (11:00)
--- NOTE | 2021-06-28 11:33 | RAD REPORT ---
EXAM DESCRIPTION: CT - Thorax Wo Con - 06/28/2021 11:12 am CLINICAL HISTORY: right pleural effusions , r/o pna COMPARISON: Chest For Pe Angio dated 06/03/2021; Chest Single View dated 06/27/2021 FINDINGS: Chest Wall: No suspicious thyroid nodules or pathologic lymphadenopathy. Lungs: Scarring in the lower lungs bilaterally. Emphysema. Pleura: No significant effusions or pneumothorax. Mediastinum/frank: No pathologic lymphadenopathy. Pulmonary arteries/Aorta: Limited evaluation without contrast. No aortic aneurysm. Heart: No significant pericardial effusion. Normal heart size. Upper abdomen: No acute abnormality. Bones: No acute abnormality. All CT scans are performed using dose optimization technique as appropriate and may include automated exposure control or mA/KV adjustment according to patient size. IMPRESSION: No acute process in the chest. Bilateral subsegmental atelectasis and/or scarring. No ev idence of either edema or pneumonia.
--- NOTE | 2021-06-28 13:53 | P.CNS ---
Date of Consult: 06/28/21 Reason for Consult: COPD chronic respiratory failure Chief Complaint: Elevated INR History of Present Illness: Patient is 50 years of age was recently admitted to the hospital with COPD diagnosed with pulmonary embolism on Coumadin mated again from the emergency room with an elevated INR evidence of any bleeding she is currently doing well she is not on any oxygen does take bronchodilators at home continues to smoke Allergies No Known Allergies Allergy (Unverified 08/13/17 11:16) Home Medications: ALPRAZolam [Alprazolam] 1 mg PO BID 06/04/21 Nitroglycerin 0.4 mg SL PRN 06/04/21 Aspirin [Aspirin EC 81 MG] 81 mg PO DAILY #30 tablet.dr 06/10/21 Atorvastatin Calcium [Lipitor] 40 mg PO BEDTIME #30 tab 06/10/21 Metoprolol Tartrate 12.5 mg PO BID #30 tablet 06/10/21 Mometasone/Formoterol [Dulera 200 Mcg/5 Mcg Inhaler] 2 puff IH BID #1 inhaler 06/10/21 Nystatin Powder [Mycostatin (Powder)*] 1 appl TOP BID #1 btl 06/10/21 Warfarin Sodium [Coumadin*] 7.5 mg PO DAILY 5 PM #30 tab 06/10/21 buPROPion HCl [Bupropion HCl Sr] 150 mg PO Q12H 06/22/21 - Past Medical/Surgical History Diabetic: Yes -: Anxiety disorder -: Diabetes mellitus -: CAD -: Hyperlipidemia -: ARF -: CHF -: COPD -: HTN -: Afib -: CO -: adhesion removal -: tubal ligation -: Heart cath Psychosocial/ Personal History: Unable to be obtained, patient lives at [facility] - Family History Mother Medical History: Lung disease, Cancer Notes: CA and COPD Father Medical History: Diabetes, Stroke - Social History Smoking Status: Current every day smoker Alcohol use: Yes CD- Drugs: No Caffeine use: Yes Place of Residence: Home Review of Systems 10-point ROS is otherwise unremarkable General: Weakness Respiratory: Shortness of Breath Physical Examination Temp Pulse Resp BP Pulse Ox 98.4 F 101 H 19 93/59 L 99 06/28/21 12:00 06/28/21 12:00 06/28/21 12:00 06/28/21 12:00 02/17/22 12:00 General: Alert, Oriented x3, Mild distress Respiratory: Clear to auscultation bilaterally, Diminished Cardiovascular: No edema Capillary refill: >2 Seconds Gastrointestinal: Soft and benign - Problems (1) COPD exacerbation Current Visit: No Status: Acute Plan: Patient is 50 years of age with a history of respiratory failure I suspect is chronic she is hypoxic hypercapnic requiring high liters of nasal cannula oxygen plan to titrate sat to 90% we will recheck her ABGs patient continues to smoke at home history of pulmonary embolism INR was supratherapeutic chemistries reviewed patient appears to be stable she is currently being anticoagulated CT scan no significant changes minimal bibasilar atelectasis no evidence of pleural effusion reduce dose of Lasix bicarbonate is is elevated avoid diuretics once the patient is therapeutic can be discharged home to follow-up with me in 2 weeks titrate sat to 90% start patient on Dulera
[2021-06-28] MEDS: DULERA 200/5 (MOMETASONE/FORMOTEROL) INHALER IH SCH ×2 (16:52→21:24)
[2021-06-28] MEDS: WARFARIN SODIUM 5 MG TAB PO SCH (16:53)
[2021-06-28] MEDS: ATORVASTATIN 40 MG TAB PO SCH (21:23)
[2021-06-28] MEDS: GABAPENTIN 100 MG CAP PO SCH (21:23)
[2021-06-29] MEDS: IPRATROPIUM BROM 0.5MG/2.5ML NEB SCH ×4 (01:55→19:45)
[2021-06-29 07:02] LABS: Protime INR 1.92
[2021-06-29 07:13] LABS: Albumin 2.9 g/dL (3.4-5.0); Bilirubin Total 0.4 mg/dL (0.2-1.0); Potassium 3.9 mmol/L (3.5-5.1); Protein, Total 7.3 g/dL (6.4-8.2)
[2021-06-29] MEDS: ALBUTEROL 2.5 MG/3 ML NEB SOL NEB PRN ×2 (08:05→20:55)
[2021-06-29] MEDS: LIDOCAINE 4% PATCH TOP SCH (09:00)
[2021-06-29] MEDS: NYSTATIN PWDR 100000 UNIT/GM TOP SCH ×2 (09:00→21:00)
[2021-06-29] MEDS: ENOXAPARIN 100 MG/ML SYR SQ SCH ×2 (09:31→22:34)
[2021-06-29] MEDS: ASPIRIN EC 81 MG TAB PO SCH (09:32)
[2021-06-29] MEDS: LORATADINE 10 MG TAB PO SCH (09:32)
[2021-06-29] MEDS: DULERA 200/5 (MOMETASONE/FORMOTEROL) INHALER IH SCH ×2 (09:32→22:35)
[2021-06-29] MEDS: BUPROPRION HCL S.R. 150MG TAB PO SCH ×2 (09:32→22:35)
[2021-06-29] MEDS ORDERED: ALPRAZOLAM 0.5 MG TABLET PO ONE ×2 (10:27→11:55)
--- NOTE | 2021-06-29 13:04 | P.PN ---
Subjective Date of Service: 06/29/21 Chief Complaint: Elevated INR Subjective: No new changes (Anxious to have Ativan) Physical Examination - Vital Signs Temperature: 97.4 F Blood Pressure: 103/59 Pulse: 99 Respirations: 20 Pulse Ox (%): 93 Assessment And Plan Physician Review: Patient Assessed, Agree with Above Assessment and Plan Physician Review Additional Text: 06/27/21 13:40 - Vital Signs Temperature: 97 F Blood Pressure: 98/59 Pulse: 84 Respirations: 20 Pulse Ox (%): 95 - Physical Exam General: Alert, on 10 L nasal cannula O2-weaned down to 4l HEENT: Mucous membr. moist/pink Neck: JVD not distended Respiratory: Decreased breath sounds bases, no wheeze, Normal air movement Cardiovascular: Regular rate/rhythm, Normal S1 S2 Capillary refill: <2 Seconds Gastrointestinal: Normal bowel sounds, Soft and benign, Non-distended, No tenderness Musculoskeletal: No swelling Integumentary: No rashes Neurological: Normal strength at 5/5 x4 extr Assessment And Plan - Current Problems (Diagnosis) (1) Supratherapeutic INR Current Visit: Yes Status: Acute (2) History of pulmonary embolism Current Visit: Yes Status: Acute (3) COPD (chronic obstructive pulmonary disease) Onset Date: 08/14/17 Current Visit: No Status: Acute Qualifiers: COPD type: COPD with acute exacerbation Qualified Code(s): J44.1 - Chronic obstructive pulmonary disease with (acute) exacerbation (4) Obesity Current Visit: No Status: Chronic Qualifiers: Obesity type: due to excess calories Obesity classification: adult class 1 (BMI 30 - 34.9) Serious obesity comorbidity presence: with serious comorbidity Body mass index: BMI 31.0-31.9 Qualified Code(s): E66.09 - Other obesity due to excess calories; Z68.31 - Body mass index (BMI) 31.0-31.9, adult; Z68.31 - Body mass index (BMI) 31.0-31.9, adult - Plan Chest x-ray showing pulmonary edema with possible effusion but CT shows chronic interstitial changes with no acute effusion. Continue to wean down O2, previously on room air at home but may need some oxygen since history of COPD which we suspect is worsening Appreciate pulmonary evaluation INR improving to 1.9, Coumadin dose reduced to 5 mg now If able to wean down oxygen in a.m. we will plan for discharge Need for medication adherence discussed Status post admitted for elevated INR of 9 with Coumadin of 7.5 mg daily after recent hospital discharge 1 week ago and recent Levaquin use. Patient was asymptomatic but given FFP and vitamin K. INR was slow to become therapeutic now Continue duo nebs as needed Continue to wean O2 as tolerated Borderline low blood pressure but stable continue to follow Continue to hold metoprolol Avoid excess pain regimen, continue Neurontin Wean off oxygen as tolerated. 06/28/21 10:33 06/29/21 13:02
[2021-06-29] MEDS: WARFARIN SODIUM 5 MG TAB PO SCH (17:09)
--- NOTE | 2021-06-29 17:36 | RAD REPORT ---
EXAM DESCRIPTION: US - Abdomen Exam Complete - 06/29/2021 5:10 pm CLINICAL HISTORY: Abdominal pain FINDINGS: The liver has a normal echotexture A gallstone is not seen. The gallbladder wall is not thickened. The biliary tree is normal caliber. The pancreas is normal in size and echotexture The right kidney measures 10 centimeters with a normal echotexture. The left kidney measures 11 centimeters with a normal echotexture. Small bilateral simple and complex renal cysts bilaterally The spleen measures 10 centimeters. Limited evaluation of pancreas, abdominal aorta and IVC secondary to overlying bowel gas IMPRESSION: Small bilateral complex renal cysts bilaterally probably benign. Follow up renal ultraso und in 1 year recommended for re-evaluation
[2021-06-29] MEDS ORDERED: ALPRAZOLAM 1 MG TABLET PO SCH (21:00)
[2021-06-29] MEDS: ATORVASTATIN 40 MG TAB PO SCH (22:34)
[2021-06-29] MEDS: GABAPENTIN 100 MG CAP PO SCH (22:35)
[2021-06-30] MEDS: IPRATROPIUM BROM 0.5MG/2.5ML NEB SCH ×4 (01:29→19:45)
[2021-06-30 03:38] LABS: Protime INR 2.19
[2021-06-30 03:56] LABS: Bilirubin Total 0.3 mg/dL (0.2-1.0); Potassium 3.6 mmol/L (3.5-5.1); Protein, Total 6.9 g/dL (6.4-8.2)
[2021-06-30] MEDS: ALBUTEROL 2.5 MG/3 ML NEB SOL NEB PRN (07:58)
[2021-06-30] MEDS: NYSTATIN PWDR 100000 UNIT/GM TOP SCH ×2 (09:00→21:36)
[2021-06-30] MEDS ORDERED: POTASSIUM CL SA 10 MEQ TAB PO ONE (09:00)
[2021-06-30] MEDS: LIDOCAINE 4% PATCH TOP SCH (09:24)
[2021-06-30] MEDS: ASPIRIN EC 81 MG TAB PO SCH (09:25)
[2021-06-30] MEDS: ENOXAPARIN 100 MG/ML SYR SQ SCH ×2 (09:25→21:34)
[2021-06-30] MEDS: LORATADINE 10 MG TAB PO SCH (09:25)
[2021-06-30] MEDS: BUPROPRION HCL S.R. 150MG TAB PO SCH ×2 (09:43→21:35)
[2021-06-30] MEDS: DULERA 200/5 (MOMETASONE/FORMOTEROL) INHALER IH SCH ×2 (09:56→21:35)
--- NOTE | 2021-06-30 12:36 | P.PN ---
Subjective Date of Service: 06/30/21 Chief Complaint: Elevated INR Subjective: No new changes (doing well) Physical Examination - Vital Signs Temperature: 96.5 F Blood Pressure: 115/95 Pulse: 86 Respirations: 20 Pulse Ox (%): 96 Assessment And Plan Physician Review: Patient Assessed, Agree with Above Assessment and Plan Physician Review Additional Text: 06/27/21 13:40 - Vital Signs Temperature: 97 F Blood Pressure: 98/59 Pulse: 84 Respirations: 20 Pulse Ox (%): 95 - Physical Exam General: Alert, weaned down to RA HEENT: Mucous membr. moist/pink Neck: JVD not distended Respiratory: Decreased breath sounds bases, no wheeze, Normal air movement Cardiovascular: Regular rate/rhythm, Normal S1 S2 Capillary refill: <2 Seconds Gastrointestinal: Normal bowel sounds, Soft and benign, Non-distended, No tenderness Musculoskeletal: No swelling Integumentary: No rashes Neurological: Normal strength at 5/5 x4 extr Assessment And Plan - Current Problems (Diagnosis) (1) Supratherapeutic INR Current Visit: Yes Status: Acute (2) History of pulmonary embolism Current Visit: Yes Status: Acute (3) COPD (chronic obstructive pulmonary disease) Onset Date: 08/14/17 Current Visit: No Status: Acute Qualifiers: COPD type: COPD with acute exacerbation Qualified Code(s): J44.1 - Chronic obstructive pulmonary disease with (acute) exacerbation (4) Obesity Current Visit: No Status: Chronic Qualifiers: Obesity type: due to excess calories Obesity classification: adult class 1 (BMI 30 - 34.9) Serious obesity comorbidity presence: with serious comorbidity Body mass index: BMI 31.0-31.9 Qualified Code(s): E66.09 - Other obesity due to excess calories; Z68.31 - Body mass index (BMI) 31.0-31.9, adult; Z68.31 - Body mass index (BMI) 31.0-31.9, adult - Plan Improving oxygenation Continue to wean off O2 Follow-up post ambulatory O2 today Continue low-dose Lasix now INR improved to 2.1, discharged home on reduced Coumadin dose at 5 mg daily Chest x-ray shows mild pulmonary congestion durinG acute dyspnea, history of underlying COPD noted Status post admitted for elevated INR of 9 with Coumadin of 7.5 mg daily after recent hospital discharge 1 week ago and recent Levaquin use. Patient was asymptomatic but given FFP and vitamin K. INR was slow to become therapeutic now Continue duo nebs as needed Continue to wean O2 as tolerated Borderline low blood pressure but stable continue to follow Continue to hold metoprolol Avoid excess pain regimen, continue Neurontin Wean off oxygen as tolerated. 06/28/21 10:33 06/29/21 13:02 06/30/21 12:34
--- NOTE | 2021-06-30 12:40 | P.DS ---
Admission Date: 06/21/21 Discharge Date: 06/30/21 Disposition: ROUTINE DISCHARGE Discharge Condition: FAIR Reason for Admission: Elevated INR Hospital Course: Hospital course Patient with recent DVT and PE on chronic anticoagulation admitted from PCP office after noted with elevated INR on her first visit. On admission she was noted with INR of 9 . Patient has previously been on 7.5 mg daily of Coumadin. She was given vitamin K as well as FFP in the emergency room. INR subsequently trended down to low numbers. She was again restarted on Coumadin and have difficult to reach target over a couple of days. She had an acute episode of acute dyspnea chest x-ray showed possible mild pulmonary edema. She was started on IV Lasix with improvement in oxygenation. CT scan of the chest shows subsegmental atelectasis with COPD changes. No pulmonary edema or pneumonia. Lasix was weaned down. Patient oxygenation continued to improve and she was weaned off O2. Her INR is stable now she will be discharged home to [facility]. - Physical Exam General: Alert, obese female, calm, on room air HEENT: Mucous membr. moist/pink Neck: JVD not distended Respiratory: Decreased breath sounds bases, no wheeze, Normal air movement Cardiovascular: Regular rate/rhythm, Normal S1 S2 Capillary refill: <2 Seconds Gastrointestinal: Normal bowel sounds, Soft and benign, Non-distended, No tenderness Musculoskeletal: No swelling Integumentary: No rashes Neurological: Normal strength at 5/5 x4 extr Assessment And Plan - Current Problems (Diagnosis) (1) Supratherapeutic INR Current Visit: Yes Status: Acute (2) History of pulmonary embolism Current Visit: Yes Status: Acute (3) COPD (chronic obstructive pulmonary disease) Onset Date: 08/14/17 Current Visit: No Status: Acute Qualifiers: COPD type: COPD with acute exacerbation Qualified Code(s): J44.1 - Chronic obstructive pulmonary disease with (acute) exacerbation (4) Obesity Current Visit: No Status: Chronic Qualifiers: Obesity type: due to excess calories Obesity classification: adult class 1 (BMI 30 - 34.9) Serious obesity comorbidity presence: with serious comorbidity Body mass index: BMI 31.0-31.9 Qualified Code(s): E66.09 - Other obesity due to excess calories; Z68.31 - Body mass index (BMI) 31.0-31.9, adult; Z68.31 - Body mass index (BMI) 31.0-31.9, adult Vital Signs/Physical Exam: Temp Pulse Resp BP Pulse Ox 96.5 F L 86 20 115/95 H 96 06/30/21 12:35 06/30/21 12:35 06/30/21 12:35 06/30/21 12:35 06/30/21 12:35 Laboratory Data at Discharge: WBC 4.10 K/uL (4.3-10.9) L D 06/22/21 05:01 Hgb 13.9 g/dL (12.0-15.0) 06/22/21 05:01 Hct 43.3 % (36.0-45.0) 06/22/21 05:01 Plt Count 124 K/uL (152-406) L 06/22/21 05:01 PT 25.4 SECONDS (9.5-12.5) H 06/30/21 03:21 INR 2.19 06/30/21 03:21 APTT 59.7 SECONDS (24.3-36.9) H 06/21/21 13:00 Sodium 142 mmol/L (136-145) 06/30/21 03:21 Potassium 3.6 mmol/L (3.5-5.1) 06/30/21 03:21 BUN 18 mg/dL (7-18) 06/30/21 03:21 Creatinine 0.85 mg/dL (0.55-1.3) 06/30/21 03:21 Glucose 159 mg/dL (74-106) H 06/30/21 03:21 Phosphorus 2.5 mg/dL (2.5-4.9) 06/22/21 05:01 Magnesium 1.9 06/22/21 05:01 Total Bilirubin 0.3 mg/dL (0.2-1.0) 06/30/21 03:21 AST 21 U/L (15-37) 06/30/21 03:21 ALT 38 U/L (12-78) 06/30/21 03:21 Alkaline Phosphatase 77 U/L (45-117) 06/30/21 03:21 Home Medications: ALPRAZolam [Alprazolam] 1 mg PO BID 06/04/21 Nitroglycerin 0.4 mg SL PRN 06/04/21 Aspirin [Aspirin EC 81 MG] 81 mg PO DAILY #30 tablet. 06/10/21 Atorvastatin Calcium [Lipitor] 40 mg PO BEDTIME #30 tab 06/10/21 Metoprolol Tartrate 12.5 mg PO BID #30 tablet 06/10/21 Mometasone/Formoterol [Dulera 200 Mcg/5 Mcg Inhaler] 2 puff IH BID #1 inhaler 06/10/21 Nystatin Powder [Mycostatin (Powder)*] 1 appl TOP BID #1 btl 06/10/21 buPROPion HCl [Bupropion HCl Sr] 150 mg PO Q12H 06/22/21 Furosemide [Lasix] 20 mg PO DAILY #30 tablet 06/30/21 Warfarin Sodium [Coumadin*] 5 mg PO DAILY 5 PM #30 tab 06/30/21 New Medications: Warfarin Sodium [Coumadin*] 5 mg PO DAILY 5 PM #30 tab Furosemide [Lasix] 20 mg PO DAILY #30 tablet Diet: Regular Activity: Ad yadiel Followup: NONE,NONE [Primary Care Provider] - Physician Review: Patient Assessed, Agree with Above Assessment and Plan Time spent managing pt's care (in minutes): 35
[2021-06-30] MEDS: WARFARIN SODIUM 5 MG TAB PO SCH (17:48)
[2021-06-30] MEDS: ACETAMINOPHEN 500 MG TAB PO PRN (18:14)
[2021-06-30] MEDS: ALPRAZOLAM 1 MG TABLET PO SCH (21:35)
[2021-06-30] MEDS: GABAPENTIN 100 MG CAP PO SCH (21:35)
[2021-06-30] MEDS: ATORVASTATIN 40 MG TAB PO SCH (21:35)
[2021-07-01] MEDS: IPRATROPIUM BROM 0.5MG/2.5ML NEB SCH ×4 (01:15→20:00)
[2021-07-01 06:16] LABS: Protime INR 2.23
[2021-07-01 06:43] LABS: Albumin 2.7 g/dL (3.4-5.0); Bilirubin Total 0.3 mg/dL (0.2-1.0); Potassium 4.1 mmol/L (3.5-5.1); Protein, Total 6.6 g/dL (6.4-8.2)
[2021-07-01] MEDS: ALPRAZOLAM 1 MG TABLET PO SCH ×2 (08:44→20:51)
[2021-07-01] MEDS: ASPIRIN EC 81 MG TAB PO SCH (08:44)
[2021-07-01] MEDS: BUPROPRION HCL S.R. 150MG TAB PO SCH ×2 (08:44→20:50)
[2021-07-01] MEDS: LORATADINE 10 MG TAB PO SCH (08:44)
[2021-07-01] MEDS: LIDOCAINE 4% PATCH TOP SCH (08:45)
[2021-07-01] MEDS: DULERA 200/5 (MOMETASONE/FORMOTEROL) INHALER IH SCH ×2 (08:45→20:47)
[2021-07-01] MEDS: NYSTATIN PWDR 100000 UNIT/GM TOP SCH ×2 (08:48→20:56)
[2021-07-01 09:11] LABS: Arterial Blood Carboxyhemoglob 1.3 % (0-1.5); Blood Gas Oxyhemoglobin 91.9 % (94-97); Blood O2 Saturation 94.4 % (92-98.5)
[2021-07-01] MEDS ORDERED: FUROSEMIDE 40 MG/4 ML VIAL IV ONE (13:16)
--- NOTE | 2021-07-01 13:17 | P.PN ---
Subjective Date of Service: 07/01/21 Chief Complaint: Elevated INR Subjective: No new changes, No C/O voiced (Complaint of nosebleed this a.m.) Physical Examination - Vital Signs Temperature: 96.0 F Blood Pressure: 108/64 Pulse: 89 Respirations: 19 Pulse Ox (%): 92 Assessment And Plan Physician Review: Patient Assessed, Agree with Above Assessment and Plan Physician Review Additional Text: 06/27/21 13:40 - Vital Signs Temperature: 97 F Blood Pressure: 98/59 Pulse: 84 Respirations: 20 Pulse Ox (%): 95 - Physical Exam General: Alert, weaned down to RA HEENT: Mucous membr. moist/pink Neck: JVD not distended Respiratory: Decreased breath sounds bases, no wheeze, Normal air movement Cardiovascular: Regular rate/rhythm, Normal S1 S2 Capillary refill: <2 Seconds Gastrointestinal: Normal bowel sounds, Soft and benign, Non-distended, No tenderness Musculoskeletal: No swelling Integumentary: No rashes Neurological: Normal strength at 5/5 x4 extr Assessment And Plan - Current Problems (Diagnosis) (1) Supratherapeutic INR Current Visit: Yes Status: Acute (2) History of pulmonary embolism Current Visit: Yes Status: Acute (3) COPD (chronic obstructive pulmonary disease) Onset Date: 08/14/17 Current Visit: No Status: Acute Qualifiers: COPD type: COPD with acute exacerbation Qualified Code(s): J44.1 - Chronic obstructive pulmonary disease with (acute) exacerbation (4) Obesity Current Visit: No Status: Chronic Qualifiers: Obesity type: due to excess calories Obesity classification: adult class 1 (BMI 30 - 34.9) Serious obesity comorbidity presence: with serious comorbidity Body mass index: BMI 31.0-31.9 Qualified Code(s): E66.09 - Other obesity due to excess calories; Z68.31 - Body mass index (BMI) 31.0-31.9, adult; Z68.31 - Body mass index (BMI) 31.0-31.9, adult - Plan Again restarted on supplemental oxygen Oxygen need worsening again after head Lasix We will restart Lasix again since suspected pulmonary edema contributing to dyspnea with underlying COPD although no pulmonary edema noted on CT scan Wean O2 as tolerated] patient is uninsured and unable to get home O2 -INR therapeutic now, DC Lovenox Continue Coumadin 5 mg daily Status post admitted for elevated INR of 9 with Coumadin of 7.5 mg daily after recent hospital discharge 1 week ago and recent Levaquin use. Patient was asymptomatic but given FFP and vitamin K. INR was slow to become therapeutic now Continue duo nebs as needed -Continue to hold metoprolol Avoid excess pain regimen, continue Neurontin 07/01/21 13:14
[2021-07-01] MEDS: WARFARIN SODIUM 5 MG TAB PO SCH (16:38)
[2021-07-01] MEDS: ATORVASTATIN 40 MG TAB PO SCH (20:47)
[2021-07-01] MEDS: GABAPENTIN 100 MG CAP PO SCH (20:48)
[2021-07-02] MEDS: IPRATROPIUM BROM 0.5MG/2.5ML NEB SCH ×4 (01:50→19:05)
[2021-07-02] MEDS: DULERA 200/5 (MOMETASONE/FORMOTEROL) INHALER IH SCH ×2 (08:34→21:00)
[2021-07-02] MEDS: BUPROPRION HCL S.R. 150MG TAB PO SCH ×2 (08:34→21:43)
[2021-07-02] MEDS: LORATADINE 10 MG TAB PO SCH (08:34)
[2021-07-02] MEDS: FUROSEMIDE 40 MG TABLET PO SCH (08:34)
[2021-07-02] MEDS: NYSTATIN PWDR 100000 UNIT/GM TOP SCH ×2 (08:35→21:00)
[2021-07-02] MEDS: LIDOCAINE 4% PATCH TOP SCH (08:35)
[2021-07-02] MEDS: ASPIRIN EC 81 MG TAB PO SCH (08:35)
[2021-07-02 08:38] LABS: Protime INR 1.74
[2021-07-02] MEDS: ALPRAZOLAM 1 MG TABLET PO SCH ×3 (09:00→21:42)
[2021-07-02] MEDS ORDERED: FUROSEMIDE 20 MG/ 2ML VIAL IV ONE (17:00)
[2021-07-02] MEDS ORDERED: ALBUMIN HUMAN 25% 50 ML IV ONE (17:00)
[2021-07-02] MEDS ORDERED: WARFARIN SODIUM 7.5 MG TAB PO SCH (17:00)
[2021-07-02] MEDS ORDERED: METHYLPREDNISOLONE 40 MG INJ IV ONE (17:00)
[2021-07-02] MEDS ORDERED: WARFARIN SODIUM 2.5 MG TAB ONE (17:18)
[2021-07-02] MEDS: GABAPENTIN 100 MG CAP PO SCH (21:42)
[2021-07-02] MEDS: ATORVASTATIN 40 MG TAB PO SCH (21:42)
[2021-07-03] MEDS: IPRATROPIUM BROM 0.5MG/2.5ML NEB SCH ×4 (01:20→20:11)
[2021-07-03 06:15] LABS: Protime INR 1.73
[2021-07-03] MEDS: BUPROPRION HCL S.R. 150MG TAB PO SCH ×2 (08:40→20:59)
[2021-07-03] MEDS: FUROSEMIDE 40 MG TABLET PO SCH (08:40)
[2021-07-03] MEDS: LORATADINE 10 MG TAB PO SCH (08:40)
[2021-07-03] MEDS: ASPIRIN EC 81 MG TAB PO SCH (08:40)
[2021-07-03] MEDS: NYSTATIN PWDR 100000 UNIT/GM TOP SCH ×2 (08:40→21:00)
[2021-07-03] MEDS: LIDOCAINE 4% PATCH TOP SCH (08:41)
[2021-07-03] MEDS: DULERA 200/5 (MOMETASONE/FORMOTEROL) INHALER IH SCH ×2 (08:41→21:00)
[2021-07-03] MEDS: ALPRAZOLAM 1 MG TABLET PO SCH ×2 (10:12→20:58)
[2021-07-03] MEDS ORDERED: D50W 25 GM/50 ML SYRINGE IV PRN (11:22)
[2021-07-03] MEDS ORDERED: GLUCAGON 1 MG/VIAL IM PRN (11:22)
[2021-07-03] MEDS ORDERED: INSULIN 70/30 100 UNITS/ML SQ ONE (11:30)
[2021-07-03] MEDS ORDERED: WARFARIN SODIUM 5 MG TAB PO SCH (17:00)
[2021-07-03] MEDS ORDERED: ALBUMIN HUMAN 25% 50 ML IV ONE (18:00)
[2021-07-03] MEDS ORDERED: FUROSEMIDE 20 MG/ 2ML VIAL IV ONE (18:00)
[2021-07-03] MEDS: ALBUTEROL 2.5 MG/3 ML NEB SOL NEB PRN (20:11)
[2021-07-03] MEDS: ATORVASTATIN 40 MG TAB PO SCH (20:58)
[2021-07-03] MEDS: GABAPENTIN 100 MG CAP PO SCH (20:58)
[2021-07-04] MEDS: ALBUTEROL 2.5 MG/3 ML NEB SOL NEB PRN ×3 (01:02→13:34)
[2021-07-04] MEDS: IPRATROPIUM BROM 0.5MG/2.5ML NEB SCH ×4 (01:02→19:30)
[2021-07-04] MEDS ORDERED: NA CHLORIDE 0.9% 1,000 ML IV ONE (05:04)
[2021-07-04 05:51] LABS: Protime INR 1.65
[2021-07-04] MEDS: FUROSEMIDE 40 MG TABLET PO SCH (09:00)
[2021-07-04] MEDS: LIDOCAINE 4% PATCH TOP SCH (09:00)
[2021-07-04] MEDS: BUPROPRION HCL S.R. 150MG TAB PO SCH ×2 (09:22→21:00)
[2021-07-04] MEDS: LORATADINE 10 MG TAB PO SCH (09:23)
[2021-07-04] MEDS: ALPRAZOLAM 1 MG TABLET PO SCH ×2 (09:23→21:00)
[2021-07-04] MEDS: ASPIRIN EC 81 MG TAB PO SCH (09:23)
[2021-07-04] MEDS: DULERA 200/5 (MOMETASONE/FORMOTEROL) INHALER IH SCH (09:32)
--- NOTE | 2021-07-04 13:06 | P.PN ---
Subjective Date of Service: 07/02/21 Subjective: No new changes, No C/O voiced, Improving Patient to get out of bed. She been laying there too long. Try to diurese her to get her oxygen. Will use incentive spirometer. Review of Systems 10-point ROS is otherwise unremarkable Physical Examination - Vital Signs Temperature: 97.0 F Blood Pressure: 94/53 Pulse: 77 Respirations: 18 Pulse Ox (%): 96 - Physical Exam General: Alert, In no apparent distress HEENT: Atraumatic, PERRLA, EOMI Neck: Supple, JVD not distended Respiratory: Clear to auscultation bilaterally, Normal air movement Cardiovascular: Regular rate/rhythm, Normal S1 S2, No murmurs Gastrointestinal: Normal bowel sounds, Soft and benign, Non-distended, No tenderness Musculoskeletal: No clubbing, No swelling, No erythema, No tenderness Integumentary: No rashes Neurological: Sensation intact, Cranial nerves 3-12 intact - Studies Medications List Reviewed: Yes Assessment & Plan - Problems (Diagnosis) (1) Hypoxemia Current Visit: Yes Status: Acute (2) History of pulmonary embolism Current Visit: Yes Status: Acute (3) Supratherapeutic INR Current Visit: Yes Status: Acute (4) Acute renal failure Onset Date: 08/14/17 Current Visit: No Status: Acute Qualifiers: Acute renal failure type: unspecified Qualified Code(s): N17.9 - Acute kidney failure, unspecified (5) CHF (congestive heart failure) Current Visit: No Status: Chronic Qualifiers: Heart failure type: systolic Heart failure chronicity: chronic Qualified Code(s): I50.22 - Chronic systolic (congestive) heart failure (6) Obesity Current Visit: No Status: Chronic Qualifiers: Obesity type: due to excess calories Obesity classification: adult class 1 (BMI 30 - 34.9) Serious obesity comorbidity presence: with serious comorbidity Body mass index: BMI 31.0-31.9 Qualified Code(s): E66.09 - Other obesity due to excess calories; Z68.31 - Body mass index (BMI) 31.0-31.9, adult; Z68.31 - Body mass index (BMI) 31.0-31.9, adult (7) Renal calculus Current Visit: No Status: Chronic (8) Pneumonia Onset Date: 08/14/17 Current Visit: No Status: Suspected Qualifiers: Pneumonia type: aspiration pneumonia Aspiration pneumonia type: unspecified Laterality: unspecified laterality Lung location: unspecified part of lung Qualified Code(s): J69.0 - Pneumonitis due to inhalation of food and vomit (9) Rhabdomyolysis Onset Date: 08/14/17 Current Visit: No Status: Suspected Qualifiers: Rhabdomyolysis type: non-traumatic Qualified Code(s): M62.82 - Rhabdomyolysis (10) Overdose of benzodiazepine Onset Date: 08/14/17 Current Visit: No Status: Resolved Qualifiers: Encounter type: initial encounter Injury intent: undetermined intent Qualified Code(s): T42.4X4A - Poisoning by benzodiazepines, undetermined, initial encounter - Plan Plan: 1. Continue anticoagulation; discussed with patient regarding warfarin versus Eliquis and she may want to switch 2. Patient with CHF and will continue with diuresing 3. Continue with steroids 4. Encourage out of bed 5. Consider incentive spirometer 6. Ambulate 7. Wean down oxygen 8. GI DVT prophylaxis Discharge Plan: Home Plan to discharge in: Greater than 2 days - Advance Directives Does patient have a Living Will: No Does patient have a Durable POA for Healthcare: No - Code Status/Comfort Care Code Status Assessed: Yes Code Status: Full Code Physician Review: Patient Assessed, Agree with Above Assessment and Plan Critical Care: No Time Spent Managing PTS Care (In Minutes): 45
--- NOTE | 2021-07-04 13:07 | P.PN ---
Date of Service: 07/03/21 Subjective Patient is doing well with no new complaints. Review of Systems 10-point ROS is otherwise unremarkable Physical Examination - Vital Signs Reviewed - Physical Exam General: Alert, In no apparent distress Respiratory: Clear to auscultation bilaterally, Normal air movement Cardiovascular: Regular rate/rhythm, Normal S1 S2, No murmurs Gastrointestinal: Normal bowel sounds, Soft and benign, Non-distended, No tenderness Musculoskeletal: No clubbing, No swelling, No erythema, No tenderness Integumentary: No rashes Neurological: Sensation intact, Cranial nerves 3-12 intact Assessment & Plan - Problems (Diagnosis) (1) Hypoxemia Current Visit: Yes Status: Acute (2) History of pulmonary embolism Current Visit: Yes Status: Acute (3) Supratherapeutic INR Current Visit: Yes Status: Acute (4) Acute renal failure Onset Date: 08/14/17 Current Visit: No Status: Acute Qualifiers: Acute renal failure type: unspecified Qualified Code(s): N17.9 - Acute kidney failure, unspecified (5) CHF (congestive heart failure) Current Visit: No Status: Chronic Qualifiers: Heart failure type: systolic Heart failure chronicity: chronic Qualified Code(s): I50.22 - Chronic systolic (congestive) heart failure (6) Obesity Current Visit: No Status: Chronic Qualifiers: Obesity type: due to excess calories Obesity classification: adult class 1 (BMI 30 - 34.9) Serious obesity comorbidity presence: with serious comorbidity Body mass index: BMI 31.0-31.9 Qualified Code(s): E66.09 - Other obesity due to excess calories; Z68.31 - Body mass index (BMI) 31.0-31.9, adult; Z68.31 - Body mass index (BMI) 31.0-31.9, adult (7) Renal calculus Current Visit: No Status: Chronic (8) Pneumonia Onset Date: 08/14/17 Current Visit: No Status: Suspected Qualifiers: Pneumonia type: aspiration pneumonia Aspiration pneumonia type: unspecified Laterality: unspecified laterality Lung location: unspecified part of lung Qualified Code(s): J69.0 - Pneumonitis due to inhalation of food and vomit (9) Rhabdomyolysis Onset Date: 08/14/17 Current Visit: No Status: Suspected Qualifiers: Rhabdomyolysis type: non-traumatic Qualified Code(s): M62.82 - Rhabdomyolysis (10) Overdose of benzodiazepine Onset Date: 08/14/17 Current Visit: No Status: Resolved Qualifiers: Encounter type: initial encounter Injury intent: undetermined intent Qualified Code(s): T42.4X4A - Poisoning by benzodiazepines, undetermined, initial encounter - Plan Continue with plan of care as mentioned below: 1. Continue anticoagulation; will switch to Eliquis 2. Continue aggressive diuresing; monitor blood pressure 3. Continue with steroids 4. Encourage out of bed 5. Consider incentive spirometer 6. Ambulate 7. Wean down oxygen 8. GI DVT prophylaxis Discharge Plan: Home Plan to discharge in: Greater than 2 days - Advance Directives Does patient have a Living Will: No Does patient have a Durable POA for Healthcare: No - Code Status/Comfort Care Code Status Assessed: Yes Code Status: Full Code Physician Review: Patient Assessed, Agree with Above Assessment and Plan Critical Care: No Time Spent Managing PTS Care (In Minutes): 45
--- NOTE | 2021-07-04 13:08 | P.PN ---
Date of Service: 07/04/21 Subjective Still with some improvement but no significant changes. Still requiring a large amount of oxygen. She does not get out of bed. Spoke with nurse about incentive spirometer so we will get this. Switch her from warfarin to Eliquis. Review of Systems 10-point ROS is otherwise unremarkable Physical Examination - Vital Signs Reviewed - Physical Exam General: Alert, In no apparent distress Respiratory: Clear to auscultation bilaterally, Normal air movement Cardiovascular: Regular rate/rhythm, Normal S1 S2, No murmurs Gastrointestinal: Normal bowel sounds, Soft and benign, Non-distended, No tenderness Musculoskeletal: No clubbing, No swelling, No erythema, No tenderness Integumentary: No rashes Neurological: Sensation intact, Cranial nerves 3-12 intact Assessment & Plan - Problems (Diagnosis) (1) Hypoxemia Current Visit: Yes Status: Acute (2) History of pulmonary embolism Current Visit: Yes Status: Acute (3) Supratherapeutic INR Current Visit: Yes Status: Acute (4) Acute renal failure Onset Date: 08/14/17 Current Visit: No Status: Acute Qualifiers: Acute renal failure type: unspecified Qualified Code(s): N17.9 - Acute kidney failure, unspecified (5) CHF (congestive heart failure) Current Visit: No Status: Chronic Qualifiers: Heart failure type: systolic Heart failure chronicity: chronic Qualified Code(s): I50.22 - Chronic systolic (congestive) heart failure (6) Obesity Current Visit: No Status: Chronic Qualifiers: Obesity type: due to excess calories Obesity classification: adult class 1 (BMI 30 - 34.9) Serious obesity comorbidity presence: with serious comorbidity Body mass index: BMI 31.0-31.9 Qualified Code(s): E66.09 - Other obesity due to excess calories; Z68.31 - Body mass index (BMI) 31.0-31.9, adult; Z68.31 - Body mass index (BMI) 31.0-31.9, adult (7) Renal calculus Current Visit: No Status: Chronic (8) Pneumonia Onset Date: 08/14/17 Current Visit: No Status: Suspected Qualifiers: Pneumonia type: aspiration pneumonia Aspiration pneumonia type: unspecified Laterality: unspecified laterality Lung location: unspecified part of lung Qualified Code(s): J69.0 - Pneumonitis due to inhalation of food and vomit (9) Rhabdomyolysis Onset Date: 08/14/17 Current Visit: No Status: Suspected Qualifiers: Rhabdomyolysis type: non-traumatic Qualified Code(s): M62.82 - Rhabdomyolysis (10) Overdose of benzodiazepine Onset Date: 08/14/17 Current Visit: No Status: Resolved Qualifiers: Encounter type: initial encounter Injury intent: undetermined intent Qualified Code(s): T42.4X4A - Poisoning by benzodiazepines, undetermined, initial encounter - Plan Continue with plan of care as mentioned below: 1. Switched to Eliquis 2. Continue aggressive diuresing; monitor blood pressure 3. Continue with steroids 4. Encourage out of bed; advised her to act like she is at home and continuing to get out of bed. 5. Consider incentive spirometer 6. Ambulate 7. Wean down oxygen 8. GI DVT prophylaxis Discharge Plan: Home Plan to discharge in: Greater than 2 days - Advance Directives Does patient have a Living Will: No Does patient have a Durable POA for Healthcare: No - Code Status/Comfort Care Code Status Assessed: Yes Code Status: Full Code Physician Review: Patient Assessed, Agree with Above Assessment and Plan Critical Care: No Time Spent Managing PTS Care (In Minutes): 45
[2021-07-04] MEDS: GABAPENTIN 100 MG CAP PO SCH (21:00)
[2021-07-04] MEDS: APIXABAN 5 MG TABLET PO SCH (21:00)
[2021-07-04] MEDS: ATORVASTATIN 40 MG TAB PO SCH (21:00)
[2021-07-05] MEDS: IPRATROPIUM BROM 0.5MG/2.5ML NEB SCH ×4 (00:50→19:11)
[2021-07-05 06:48] LABS: Absolute Lymphocytes (CBC) 1.2 K/uL (0.7-4.9); Hematocrit 43.7 % (36.0-45.0); Lymphocytes % 23.5 % (15.3-44.8); MPV 8.7 fL (7.6-11.3); Protime INR 1.82; RBC Red Blood Cell Count 4.02 M/uL (3.86-4.86)
[2021-07-05 07:08] LABS: Albumin 3.1 g/dL (3.4-5.0); Bilirubin Total 0.3 mg/dL (0.2-1.0); Magnesium 2.4 mg/dL (1.8-2.4); Phosphorus 3.3 mg/dL (2.5-4.9); Potassium 3.9 mmol/L (3.5-5.1); Protein, Total 6.6 g/dL (6.4-8.2)
[2021-07-05 07:55] LABS: Blood Morphology Comment NOT SEEN (NOT SEEN); Platelet Estimate ADEQ
[2021-07-05] MEDS: ALBUTEROL 2.5 MG/3 ML NEB SOL NEB PRN ×3 (07:55→19:11)
--- NOTE | 2021-07-05 07:56 | RAD REPORT ---
EXAM DESCRIPTION: RAD - Chest Single View - 07/05/2021 5:44 am CLINICAL HISTORY: pneumonia COMPARISON: CT chest June 28, portable chest June 28 TECHNIQUE: AP portable chest image was obtained 07/05/2021 5:44 am . FINDINGS: Lung volumes are low. Lung base atelectasis is present. Interstitial markings remain promi nent. Hazy alveolar opacities are present in the left lung field new from the 06/27 study. This could be pneumonia or edema. Enlarged cardiomediastinal silhouette again noted, distorted by patient rotat ion. Right hemidiaphragm elevation again noted. No pneumothorax or enlarging pleural effusion. IMPRESSION: Increased alveolar opacities in the left lung field could be pneumonia or asymmetric pul monary edema. Remainder of the chest is stable from June 27.
[2021-07-05] MEDS: LIDOCAINE 4% PATCH TOP SCH (09:00)
[2021-07-05] MEDS: LORATADINE 10 MG TAB PO SCH (09:10)
[2021-07-05] MEDS: FUROSEMIDE 40 MG TABLET PO SCH (09:11)
[2021-07-05] MEDS: BUPROPRION HCL S.R. 150MG TAB PO SCH ×2 (09:11→22:21)
[2021-07-05] MEDS: APIXABAN 5 MG TABLET PO SCH ×2 (09:11→22:20)
[2021-07-05] MEDS: DULERA 200/5 (MOMETASONE/FORMOTEROL) INHALER IH SCH ×3 (09:12→22:22)
[2021-07-05] MEDS: ALPRAZOLAM 1 MG TABLET PO SCH ×2 (09:12→22:20)
[2021-07-05] MEDS: ASPIRIN EC 81 MG TAB PO SCH (09:12)
[2021-07-05] MEDS: ACETAMINOPHEN 500 MG TAB PO PRN (09:56)
[2021-07-05 11:49] LABS: Folic Acid, (Folate) 17.3 ng/mL (3.1-17.5); Thyroid Stimulating Hormone 2.6 uIU/mL (0.360-3.740)
[2021-07-05 12:03] LABS: Magnesium 2.1 mg/dL (1.8-2.4)
[2021-07-05] MEDS: ATORVASTATIN 40 MG TAB PO SCH (22:20)
[2021-07-05] MEDS: GABAPENTIN 100 MG CAP PO SCH (22:21)
[2021-07-06] MEDS: IPRATROPIUM BROM 0.5MG/2.5ML NEB SCH ×4 (01:41→19:32)
[2021-07-06] MEDS: ALBUTEROL 2.5 MG/3 ML NEB SOL NEB PRN ×2 (01:41→19:32)
[2021-07-06] MEDS: ACETAMINOPHEN 500 MG TAB PO PRN (02:14)
[2021-07-06] MEDS: DULERA 200/5 (MOMETASONE/FORMOTEROL) INHALER IH SCH ×2 (09:00→21:06)
[2021-07-06] MEDS: BUPROPRION HCL S.R. 150MG TAB PO SCH ×2 (09:00→21:06)
[2021-07-06] MEDS: LIDOCAINE 4% PATCH TOP SCH (09:06)
[2021-07-06] MEDS: APIXABAN 5 MG TABLET PO SCH ×2 (09:06→21:06)
[2021-07-06] MEDS: ASPIRIN EC 81 MG TAB PO SCH (09:06)
[2021-07-06] MEDS: ALPRAZOLAM 1 MG TABLET PO SCH ×2 (09:06→21:06)
[2021-07-06] MEDS: FUROSEMIDE 40 MG TABLET PO SCH (09:06)
[2021-07-06] MEDS: LORATADINE 10 MG TAB PO SCH (09:07)
[2021-07-06] MEDS: ATORVASTATIN 40 MG TAB PO SCH (21:06)
[2021-07-06] MEDS: GABAPENTIN 100 MG CAP PO SCH (21:06)
[2021-07-07] MEDS: ALBUTEROL 2.5 MG/3 ML NEB SOL NEB PRN ×3 (01:30→20:07)
[2021-07-07] MEDS: IPRATROPIUM BROM 0.5MG/2.5ML NEB SCH ×4 (01:30→20:07)
[2021-07-07] MEDS: BUPROPRION HCL S.R. 150MG TAB PO SCH ×2 (08:35→20:14)
[2021-07-07] MEDS: LIDOCAINE 4% PATCH TOP SCH (08:36)
[2021-07-07] MEDS: ASPIRIN EC 81 MG TAB PO SCH (08:36)
[2021-07-07] MEDS: DULERA 200/5 (MOMETASONE/FORMOTEROL) INHALER IH SCH ×2 (08:36→20:15)
[2021-07-07] MEDS: LORATADINE 10 MG TAB PO SCH (08:36)
[2021-07-07] MEDS: FUROSEMIDE 40 MG TABLET PO SCH ×2 (08:37→09:00)
[2021-07-07] MEDS: APIXABAN 5 MG TABLET PO SCH ×2 (08:37→20:16)
[2021-07-07] MEDS: NA CHLORIDE 0.9% 1,000 ML IV SCH (12:58)
[2021-07-07] MEDS ORDERED: HYDROCORTISONE SUC 100 MG INJ IV ONE (13:00)
[2021-07-07] MEDS ORDERED: ALPRAZOLAM 0.5 MG TABLET PO ONE (14:00)
[2021-07-07] MEDS: GABAPENTIN 100 MG CAP PO SCH (20:14)
[2021-07-07] MEDS: TRAMADOL HCL 50 MG TAB PO PRN (20:14)
[2021-07-07] MEDS: ALPRAZOLAM 0.5 MG TABLET PO SCH (20:14)
[2021-07-07] MEDS: ATORVASTATIN 40 MG TAB PO SCH (20:14)
[2021-07-07] MEDS ORDERED: NA CHLORIDE 0.9% 500 ML IV ONE (22:28)
[2021-07-08] MEDS: IPRATROPIUM BROM 0.5MG/2.5ML NEB SCH ×3 (01:40→14:03)
[2021-07-08] MEDS: TRAMADOL HCL 50 MG TAB PO PRN (02:51)
[2021-07-08 06:03] LABS: Absolute Lymphocytes (CBC) 1.1 K/uL (0.7-4.9); Hematocrit 41.9 % (36.0-45.0); MPV 8.8 fL (7.6-11.3); RBC Red Blood Cell Count 3.86 M/uL (3.86-4.86)
[2021-07-08] MEDS: NA CHLORIDE 0.9% 1,000 ML IV SCH (06:10)
[2021-07-08 06:23] LABS: Albumin 2.8 g/dL (3.4-5.0); Bilirubin Total 0.3 mg/dL (0.2-1.0); Potassium 3.9 mmol/L (3.5-5.1); Protein, Total 6.3 g/dL (6.4-8.2)
[2021-07-08] MEDS: ASPIRIN EC 81 MG TAB PO SCH (08:54)
[2021-07-08] MEDS: APIXABAN 5 MG TABLET PO SCH (08:55)
[2021-07-08] MEDS: BUPROPRION HCL S.R. 150MG TAB PO SCH (08:55)
[2021-07-08] MEDS: LORATADINE 10 MG TAB PO SCH (08:55)
[2021-07-08] MEDS: FUROSEMIDE 40 MG TABLET PO SCH (08:55)
[2021-07-08] MEDS: LIDOCAINE 4% PATCH TOP SCH (08:56)
[2021-07-08] MEDS: DULERA 200/5 (MOMETASONE/FORMOTEROL) INHALER IH SCH (08:56)
[2021-07-08] MEDS: ALPRAZOLAM 0.5 MG TABLET PO SCH ×2 (08:56→12:48)
[2021-07-08] MEDS ORDERED: POTASSIUM CL SA 10 MEQ TAB PO ONE (09:00)
[2021-07-08 09:01] VITALS: O2SAT 96
[2021-07-08 09:39] VITALS: TEMP 97.3
[2021-07-08 14:40] VITALS: BP 109/60
== END 2021-07-08 15:40 | disposition home or self-care (01) | DRG 813 ==
LOC: ER 12:05 → ERHOLD 15:55 → 2ND 19:24
PROVIDERS: ADMIT Internal Medicine; ATTEND Internal Medicine
PROC: 30233K1 Transfusion of Nonautologous Frozen Plasma into Peripheral Vein, Percutaneous Approach (ICD-10-PCS; principal; 2021-06-21)
DX: D68.8 Other specified coagulation defects (principal); J44.1 Chronic obstructive pulmonary disease with (acute) exacerbation; J98.11 Atelectasis; I50.22 Chronic systolic (congestive) heart failure; Z68.37 Body mass index [BMI] 37.0-37.9, adult; E66.09 Other obesity due to excess calories; I11.0 Hypertensive heart disease with heart failure; R10.11 Right upper quadrant pain; R51.9 Headache, unspecified; I48.91 Unspecified atrial fibrillation; E11.9 Type 2 diabetes mellitus without complications; I25.10 Atherosclerotic heart disease of native coronary artery without angina pectoris; I25.2 Old myocardial infarction; Z79.01 Long term (current) use of anticoagulants; Z86.718 Personal history of other venous thrombosis and embolism; Z86.711 Personal history of pulmonary embolism; Z20.822 Contact with and (suspected) exposure to COVID-19
CPT/HCPCS: 0240U; 36415; 71045; 71250; 76700; 80048; 80053; 80076; 82533; 82607; 82746; 82805; 82947; 83540; 83735; 83880; 84100; 84145; 84439; 84443; 84484; 85025; 85610; 85730; 86140; 86850; 86900; 86901; 93005; 94640; 94660; 94760; 96360; 96361; 96372; 99285; J1650; J1720; J1815; J1940; J2270; J2920; J3430; J7030; J7040; J7050; J7606; P9047; P9059

== ENCOUNTER 2021-09-12 15:31 | Emergency (ER) | payer SELFPAY ==
[2021-09-12] MEDS ORDERED: FUROSEMIDE 40 MG/4 ML VIAL ONE (15:54)
[2021-09-12 16:16] LABS: Absolute Lymphocytes (CBC) 0.9 K/uL (0.7-4.9); Hematocrit 47.2 % (36.0-45.0); Lymphocytes % 18.4 % (15.3-44.8); MPV 9.2 fL (7.6-11.3); RBC Red Blood Cell Count 4.32 M/uL (3.86-4.86)
--- NOTE | 2021-09-12 16:17 | RAD REPORT ---
EXAM DESCRIPTION: RAD - Chest Single View - 09/12/2021 4:09 pm CLINICAL HISTORY: DYSPNEA COMPARISON: Chest Single View dated 07/05/2021; Chest Single View dated 06/27/2021; Chest Single View dated 06/15/2021; Chest Single View dated 06/04/2021 FINDINGS: Lines: None. Lungs: Hazy bilateral opacities, left greater than right. Pleural: No significant pleural effusions or pneumothorax. Cardiac: Cardiomegaly. Bones: No acute fractures. Other: IMPRESSION: Hazy bilateral opacities with improvement since 07/05/2021 that may represent mild pulmo nary edema. .
[2021-09-12 16:19] LABS: Protime INR 0.89
[2021-09-12 16:31] LABS: ALT/SGPT 63 U/L (12-78); AST/SGOT 34 U/L (15-37); Albumin 3.2 g/dL (3.4-5.0); Alkaline Phosphatase 103 U/L (45-117); BUN Blood Urea Nitrogen 15 mg/dL (7-18); Bicarbonate 30 mmol/L (21-32); Bilirubin Total 0.3 mg/dL (0.2-1.0); Glucose Level 148 mg/dL (74-106); Lipase 62 U/L (73-393); NT PRO-BNP 38 pg/mL (<125); Protein, Total 7.6 g/dL (6.4-8.2); Sodium Level 141 mmol/L (136-145)
[2021-09-12 16:33] LABS: Bilirubin Direct < 0.1 mg/dL (0-0.2)
[2021-09-12] MEDS ORDERED: FUROSEMIDE 20 MG TABLET ONE ×2 (16:51→16:54)
[2021-09-12] MEDS ORDERED: LEVALBUTEROL 1.25 MG/3 ML NEB ONE (17:18)
--- NOTE | 2021-09-12 18:19 | ER ---
Nurse's Notes [facility] Name: Raiza Whaley Age: 50 yrs Sex: Female : 1970 Arrival Date: 09/12/2021 Time: 15:33 Bed 25 Private MD: Diagnosis: Edema, unspecified;Unspecified combined systolic (congestive) and diastolic (congestive) heart failure Presentation: 09/12 15:35 Chief complaint: EMS states: Pt reports JENNIFER leg swelling, more so on the right. Was jb4 admitted 1 month ago for PE, takes her eliquis, reportedly refuses to take diuretics. Coronavirus screen: At this time, the client does not indicate any symptoms associated with coronavirus-19. Ebola Screen: No symptoms or risks identified at this time. Initial Sepsis Screen: Does the patient meet any 2 criteria? No. Patient's initial sepsis screen is negative. Does the patient have a suspected source of infection? No. Patient's initial sepsis screen is negative. Risk Assessment: Do you want to hurt yourself or someone else? Patient reports no desire to harm self or others. Onset of symptoms was September 12, 2021. Transition of care: patient was not received from another setting of care. 15:35 Method Of Arrival: EMS: [facility] 15:35 Acuity: PATRIZIA 3 jb4 Historical: - Allergies: 15:40 Neosporin ([id number]); jb4 - Home Meds: 15:40 Eliquis oral [Active]; jb4 - PMHx: 15:40 Atrial Fib; acute renal failure; Anxiety; blood clots in lungs; CHF; COPD; Diabetes - jb4 IDDM; Endometrosis; Hypertension; Myocardial infarction; Pneumonia; Rhabdo; - PSHx: 15:40 Biopsies for HPV; Expoloratory surgery for stomach adhesions; jb4 - Immunization history:: Adult Immunizations up to date. - Social history:: Smoking status: Patient/guardian denies using tobacco, Patient uses street drugs, marijuana. - Family history:: not pertinent. - Hospitalizations: : The patient was recently seen at [facility]. Screenin:40 Abuse screen: Denies threats or abuse. Nutritional screening: No deficits noted. jb4 Tuberculosis screening: No symptoms or risk factors identified. Fall Risk None identified. Assessment: 15:40 General: Appears in no apparent distress. comfortable, Behavior is calm, cooperative, jb4 appropriate for age. Pain: Denies pain. Neuro: Level of Consciousness is awake, alert, obeys commands, Oriented to person, place, time, situation. Cardiovascular: Patient's skin is warm and dry. Respiratory: Airway is patent Respiratory effort is even, unlabored, Respiratory pattern is regular, symmetrical. GI: No signs and/or symptoms were reported involving the gastrointestinal system. : No signs and/or symptoms were reported regarding the genitourinary system. EENT: No signs and/or symptoms were reported regarding the EENT system. Derm: Skin is intact, Skin is pink, warm \T\ dry. Musculoskeletal: Circulation, motion, and sensation intact. Range of motion: intact in all extremities, Swelling present in right leg and left leg. 16:51 Reassessment: Patient appears in no apparent distress at this time. Patient and/or jb4 family updated on plan of care and expected duration. Pain level reassessed. Patient is alert, oriented x 3, equal unlabored respirations, skin warm/dry/pink. 18:00 Reassessment: Patient appears in no apparent distress at this time. Patient and/or jb4 family updated on plan of care and expected duration. Pain level reassessed. Patient is alert, oriented x 3, equal unlabored respirations, skin warm/dry/pink. 18:51 Reassessment: Patient appears in no apparent distress at this time. Patient and/or jb4 family updated on plan of care and expected duration. Pain level reassessed. Patient is alert, oriented x 3, equal unlabored respirations, skin warm/dry/pink. Pt verbalized understanding of D/c and follow up instructions. Asked for more prescriptions, notified provider, no new prescriptions given other than Eliquis and Lasix. Pt given Rx cards per request. Assisted to lobby via wheelchair. Vital Signs: 15:37 BP 110 / 78; Pulse 81; Resp 20; Temp 97.3(O); Pulse Ox 98% on R/A; Weight 99.79 kg (R); mb7 Height 5 ft. 6 in. (167.64 cm) (R); 16:39 BP 104 / 90; Pulse 79; Resp 20; Pulse Ox 93% on R/A; jb4 18:15 BP 105 / 75; Pulse 83; Resp 19; Pulse Ox 95% on R/A; jb4 15:37 Body Mass Index 35.51 (99.79 kg, 167.64 cm) mb7 ED Course: 15:33 Patient arrived in ED. rn 15:33 Guanako Kelly MD is Attending Physician. rn 15:35 Krzysztof Hernandez RN is Primary Nurse. jb4 15:37 Patient has correct armband on for positive identification. Bed in low position. Call mb7 light in reach. Side rails up X 1. Door closed. Noise minimized. 15:39 Triage completed. jb4 15:40 Arm band placed on right wrist. jb4 15:59 EKG done, by ED staff, reviewed by Guanako Kelly MD. 5 16:02 Blood Culture Adult (2) Sent. mb7 16:02 BMP Sent. mb7 16:02 CBC with Diff Sent. mb7 16:02 Hepatic Function Sent. mb7 16:02 Lipase Sent. mb7 16:02 NT PRO-BNP Sent. mb7 16:02 PT-INR Sent. mb7 16:02 Ptt, Activated Sent. mb7 16:03 Inserted saline lock: 20 gauge in right antecubital area, using aseptic technique. mb7 Blood collected. 16:10 XRAY CXR (1 view) In Process Unspecified. EDMS 18:14 Extrem Venous W Compression Jennifer US In Process Unspecified. EDMS 18:44 IV discontinued, intact, bleeding controlled, No redness/swelling at site. mb7 18:54 No provider procedures requiring assistance completed. jb4 Administered Medications: 16:36 Not Given (Duplicate Order): Lasix (furosemide) 40 mg IVP once; give over 2 minutes rn 16:50 Drug: LaSIX (furosemide) 20 mg Route: PO; jb4 18:54 Follow up: Response: No adverse reaction jb4 17:16 Drug: Xopenex (levalbuterol) 1.25 mg Route: Inhalation; jb4 Outcome: 18:18 Discharge ordered by . rn 18:54 Discharged to home via wheelchair, with family. jb4 18:54 Condition: stable 18:54 Discharge instructions given to patient, family, Instructed on discharge instructions, follow up and referral plans. medication usage, Demonstrated understanding of instructions, follow-up care, medications, Prescriptions given X 2. 18:54 Patient left the ED. jb4 Addendum: 09/14/2021 04:00 Addendum: Culture Results: Positive blood culture. second bottle positive- not stained t w5 yet. Signatures: Dispatcher [employer] EDMS Guanako Kelly MD MD rn Bryson, James, RN RN jb4 Grace Ha 5 Betty Knott 5 Charisma Cardenas mb7 Corrections: (The following items were deleted from the chart) 09/12 16:51 16:50 General: Appears in no apparent distress. comfortable, Behavior is calm, jb4 cooperative, appropriate for age, jb4 :50 16:50 Pain: Denies pain. jb4 jb4 :51 16:50 Neuro: Level of Consciousness is awake, alert, obeys commands, Oriented to jb4 person, place, time, situation, jb4 :51 16:50 Cardiovascular: Patient's skin is warm and dry. jb4 jb4 :51 16:50 Respiratory: Airway is patent Respiratory effort is even, unlabored, Respiratory jb4 pattern is regular, symmetrical, jb4 :51 16:50 GI: No signs and/or symptoms were reported involving the gastrointestinal system. jb4 jb4 :51 16:50 : No signs and/or symptoms were reported regarding the genitourinary system. jb4jb4 :51 16:50 EENT: No signs and/or symptoms were reported regarding the EENT system. jb4 jb4 :51 16:50 Derm: Skin is intact, Skin is pink, warm \T\ dry. jb4 jb4 16:51 16:50 Musculoskeletal: Circulation, motion, and sensation intact. Range of motion: jb4 intact in all extremities, Swelling present in right leg and left leg jb4
--- NOTE | 2021-09-12 18:19 | EDPHYS ---
Physician Documentation [facility] Name: Raiza Whaley Age: 50 yrs Sex: Female : 1970 Arrival Date: 09/12/2021 Time: 15:33 Bed 25 Private MD: ED Physician Guanako Kelly HPI: 09/12 15:52 This 50 yrs old Female presents to ER via EMS with complaints of Leg swelling. rn 15:52 The patient presents with swelling. The complaints affect the anterior aspect of left rn ankle and dorsum of left foot, right ankle and lateral aspect of right foot. Onset: The symptoms/episode began/occurred 3 week(s) ago. Modifying factors: The symptoms are alleviated by nothing. the symptoms are aggravated by nothing. Associated signs and symptoms: Pertinent positives: swelling, Pertinent negatives calf tenderness, fever, warmth, weakness. Severity of symptoms: At their worst the symptoms were mild, in the emergency department the symptoms are unchanged. The patient has experienced similar episodes in the past. The patient has been recently seen at the [facility] Emergency Department. Patient reports admitted to this hospital about 3 weeks ago, diagnosed with blood clot in lungs and possibly congestive heart failure. States ran out of medication except for Eliquis. Reports here because of lower extremity swelling that has been present since discharge 3 weeks ago but worse over the last week. Denies any shortness of breath. No trauma. Denies chest pain.. Historical: - Allergies: 15:40 Neosporin ([id number]); jb4 - Home Meds: 15:40 Eliquis oral [Active]; jb4 - PMHx: 15:40 Atrial Fib; acute renal failure; Anxiety; blood clots in lungs; CHF; COPD; Diabetes - jb4 IDDM; Endometrosis; Hypertension; Myocardial infarction; Pneumonia; Rhabdo; - PSHx: 15:40 Biopsies for HPV; Expoloratory surgery for stomach adhesions; jb4 - Immunization history:: Adult Immunizations up to date. - Social history:: Smoking status: Patient/guardian denies using tobacco, Patient uses street drugs, marijuana. - Family history:: not pertinent. - Hospitalizations: : The patient was recently seen at [facility]. ROS: 15:52 Constitutional: Negative for fever, chills, and weight loss, Eyes: Negative for injury, rn pain, redness, and discharge, Neck: Negative for injury, pain, and swelling, Cardiovascular: Negative for chest pain, palpitations Respiratory: Negative for shortness of breath, cough, wheezing, and pleuritic chest pain, Abdomen/GI: Negative for abdominal pain, nausea, vomiting, diarrhea, and constipation, Back: Negative for injury and pain, MS/Extremity: Positive for bilateral leg swelling Skin: Negative for injury, rash, and discoloration, Neuro: Negative for headache, weakness, numbness, tingling, and seizure. Exam: 15:52 Constitutional: This is a well developed, well nourished patient who is awake, alert, rn able to transfer from EMS stretcher to ER bed on her own Head/Face: Normocephalic, atraumatic. Eyes: Periorbital areas with no swelling, redness, or edema. Cardiovascular: Regular rate and rhythm. No pulse deficits. Respiratory: No increased work of breathing, no retractions or nasal flaring. Abdomen/GI: Soft, non-tender Skin: Warm, dry with normal turgor. Normal color with no rashes, no lesions, and no evidence of cellulitis. MS/ Extremity: Pulses equal, no cyanosis. Neurovascular intact. Full, normal range of motion. Right lower extremity with increased circumference compared to left lower extremity, bilateral nonpitting edema below knees on both sides Neuro: Awake and alert, GCS 15, oriented to person, place, time, and situation. Cranial nerves II-XII grossly intact. Motor strength 5/5 in all extremities. Sensory grossly intact. Cerebellar exam normal. Normal gait. Vital Signs: 15:37 BP 110 / 78; Pulse 81; Resp 20; Temp 97.3(O); Pulse Ox 98% on R/A; Weight 99.79 kg (R); mb7 Height 5 ft. 6 in. (167.64 cm) (R); 16:39 BP 104 / 90; Pulse 79; Resp 20; Pulse Ox 93% on R/A; jb4 18:15 BP 105 / 75; Pulse 83; Resp 19; Pulse Ox 95% on R/A; jb4 15:37 Body Mass Index 35.51 (99.79 kg, 167.64 cm) [facility] MDM: 15:33 Patient medically screened. rn 18:17 ED course: No DVT on U/S, stable vitals, CXR without gross changes, BNP WNL, will dc rn home with instructions to comply with lasix and return precautions given/understood. . 09/12 15:35 Order name: BMP; Complete Time: 16:36 rn 09/12 15:35 Order name: Blood Culture Adult (2) rn 09/12 15:35 Order name: CBC with Diff; Complete Time: 16:30 rn 09/12 15:35 Order name: Hepatic Function; Complete Time: 16:36 rn 09/12 15:35 Order name: Lipase; Complete Time: 16:36 rn 09/12 15:35 Order name: NT PRO-BNP; Complete Time: 16:36 rn 09/12 15:35 Order name: PT-INR; Complete Time: 16:30 rn 09/12 15:35 Order name: Ptt, Activated; Complete Time: 16:30 rn 09/12 15:35 Order name: XRAY CXR (1 view); Complete Time: 16:30 rn 09/12 15:35 Order name: Procalcitonin; Complete Time: 17:10 rn 09/12 15:35 Order name: Extrem Venous W Compression Abelardo US rn 09/12 15:35 Order name: EKG; Complete Time: 15:36 rn 09/12 15:35 Order name: Cardiac monitoring; Complete Time: 15:58 rn 09/12 15:35 Order name: EKG - Nurse/Tech; Complete Time: 15:59 rn 09/12 15:35 Order name: IV Saline Lock; Complete Time: 15:43 rn 09/12 15:35 Order name: Labs collected and sent; Complete Time: 15:43 rn 09/12 15:35 Order name: O2 Per Protocol; Complete Time: 15:43 rn 09/12 15:35 Order name: O2 Sat Monitoring; Complete Time: 15:43 rn Administered Medications: 16:36 Not Given (Duplicate Order): Lasix (furosemide) 40 mg IVP once; give over 2 minutes rn 16:50 Drug: LaSIX (furosemide) 20 mg Route: PO; jb4 18:54 Follow up: Response: No adverse reaction jb4 17:16 Drug: Xopenex (levalbuterol) 1.25 mg Route: Inhalation; jb4 Disposition Summary: 09/12/21 18:18 Discharge Ordered Location: Home rn Problem: new rn Symptoms: have improved rn Condition: Stable rn Diagnosis - Edema, unspecified rn - Unspecified combined systolic (congestive) and diastolic (congestive) heart failure rn Followup: rn - With: Private Physician - When: As needed - Reason: Recheck today's complaints, Re-evaluation by your physician Discharge Instructions: - Discharge Summary Sheet rn - Edema rn - Heart Failure, Diagnosis, [id number] rn - Peripheral Edema rn Forms: - Medication Reconciliation Form rn - Thank You Letter rn - Antibiotic glove turner and former automatic - Prescription Opioid Use rn Prescriptions: - Eliquis 5 mg Oral tablet - take 1 tablet by ORAL route 2 times per day; 60 tablet; Refills: 0, Product rn Selection Permitted - Lasix 20 mg Oral Tablet - take 1 tablet by ORAL route once daily; 60 tablet; Refills: 0, Product rn Selection Permitted Signatures: Dispatcher [employer] Guanako Byrd MD MD rn Bryson, James, RN RN jb4
--- NOTE | 2021-09-12 18:37 | RAD REPORT ---
EXAM DESCRIPTION: US - Extrem Venous W Compress Abelardo - 09/12/2021 6:12 pm CLINICAL HISTORY: leg swelling, hx of DVT/PE COMPARISON: Extremity Venous Uni Ltd dated 06/15/2021 TECHNIQUE: Real-time sonographic evaluation of the lower extremity deep venous systems was performed using color Doppler, grayscale, and compression. FINDINGS: Bilateral lower extremities. Normal compressibility, flow augmentation, phasic flow and spontaneous flow is identified in both the left and right lower extremity deep venous systems. No intraluminal filling defects seen. IMPRESSION: No DVT in either lower extremity.
[2021-09-12 19:33] VITALS: TEMP 98.7
[2021-09-12 19:39] VITALS: BP 105/75; O2SAT 95
--- NOTE | 2021-09-13 14:12 | EKG ---
Test Date: 2021-09-12 Test Time: 15:49:45 Senior Underwriting Assistant: JOSSIE MEASUREMENT RESULTS: Intervals: Rate: 80 NV: 196 QRSD: 124 QT: 416 QTc: 479 Toutle: P: 67 NV: 196 QRS: -48 T: 15 INTERPRETIVE STATEMENTS: Normal sinus rhythm Left axis deviation RSR' or QR pattern in V1 suggests right ventricular conduction delay Anteroseptal infarct, age undetermined Abnormal ECG Compared to ECG 06/21/2021 13:25:47 RSR' in V1 or V2 now present Myocardial infarct finding still present Electronically Signed On 09-13-21 14:11:29 CDT by Riley Kaplan
== END 2021-09-12 18:54 | disposition home or self-care (01) ==
LOC: ER 15:31
DX: I50.40 Unspecified combined systolic (congestive) and diastolic (congestive) heart failure (principal); I10 Essential (primary) hypertension; N17.9 Acute kidney failure, unspecified; I48.91 Unspecified atrial fibrillation; J44.9 Chronic obstructive pulmonary disease, unspecified; E11.9 Type 2 diabetes mellitus without complications; Z79.01 Long term (current) use of anticoagulants; Z88.3 Allergy status to other anti-infective agents
CPT/HCPCS: 36415; 71045; 80048; 80076; 83690; 83880; 84145; 85025; 85610; 85730; 87040; 87077; 87186; 87205; 93005; 93970; 99284; J1940

== ENCOUNTER 2021-10-27 01:45 | Inpatient (IN) | payer SELFPAY ==
[2021-10-27] MEDS ORDERED: NA CHLORIDE 0.9% 100 ML ONE (04:06)
[2021-10-27] MEDS ORDERED: VANCOMYCIN 500 MG/VIAL ONE (04:06)
[2021-10-27] MEDS ORDERED: NA CHLORIDE 0.9% 250 ML ONE (04:06)
[2021-10-27] MEDS ORDERED: VANCOMYCIN 1 GM/VIAL ONE (04:06)
[2021-10-27] MEDS ORDERED: CEFEPIME 1 GM/VIAL ONE (04:06)
[2021-10-27 04:16] LABS: Absolute Lymphocytes (CBC) 0.6 K/uL (0.7-4.9); Hematocrit 52.2 % (36.0-45.0); Lymphocytes % 8.1 % (15.3-44.8); MCV 106.6 fL (80-100); MPV 9.9 fL (7.6-11.3)
[2021-10-27 04:20] LABS: Urine Blood Negative (Negative); Urine Glucose Negative (Negative); Urine Protein Negative (Negative)
[2021-10-27 04:22] LABS: Protime INR 1.14
[2021-10-27 04:37] LABS: Blood Morphology Comment NOTED (NOT SEEN); Macrocytosis 2+; Ovalocytes 1+; Platelet Estimate ADEQ; White Blood Cell Scan OK (OK)
[2021-10-27 04:41] LABS: Urine Bacteria LOADED /HPF (<20); Urine Mucus 2+ /HPF (NONE SEEN); Urine RBC <5 /HPF (NONE SEEN)
[2021-10-27 04:42] LABS: Albumin 3.3 g/dL (3.4-5.0); Bilirubin Total 0.6 mg/dL (0.2-1.0); Protein, Total 7.8 g/dL (6.4-8.2)
[2021-10-27 04:44] LABS: Potassium 2.7 mmol/L (3.5-5.1)
--- NOTE | 2021-10-27 04:52 | ER ---
Nurse's Notes [facility] Name: Raiza Whaley Age: 50 yrs Sex: Female : 1970 Arrival Date: 10/27/2021 Time: 01:55 Bed 5 Private MD: Diagnosis: Altered mental status, unspecified;UTI/ Urinary tract infection, site not specified;Cellulitis of buttock;Hypokalemia;Severe sepsis with septic shock Presentation: 10/27 02:14 Chief complaint: EMS states: pt was at home trying to get out of bed and pt is as6 reportedly weak. pt fell face forward and hit her head. Coronavirus screen: At this time, the client does not indicate any symptoms associated with coronavirus-19. Ebola Screen: No symptoms or risks identified at this time. Initial Sepsis Screen: Does the patient meet any 2 criteria? No. Patient's initial sepsis screen is negative. Does the patient have a suspected source of infection? No. Patient's initial sepsis screen is negative. Risk Assessment: Do you want to hurt yourself or someone else? Patient reports no desire to harm self or others. Onset of symptoms was October 27, 2021. 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: 04:38 LMP N/A - Post-menopause kd3 Historical: - Allergies: 02:16 Neosporin ([id number]); as6 - Home Meds: 02:16 Eliquis 5 mg oral tab 1 tab 2 times per day [Active]; furosemide 20 mg Oral tab 1 tab as6 once daily [Active]; gabapentin 300 mg oral cap 1 cap twice a day [Active]; bupropion HCl 150 mg Oral Tb24 1 tab twice a day [Active]; nitroglycerin 0.4 mg SL subl [Active]; aspirin 81 mg Oral TbEC 1 tab once daily [Active]; metoprolol tartrate 25 mg Oral tab 1 tab once daily [Active]; atorvastatin 40 mg oral tab 1 tab once daily [Active]; - PMHx: 02:16 acute renal failure; Anxiety; Atrial Fib; blood clots in lungs; CHF; COPD; Diabetes - as6 IDDM; Endometrosis; Hypertension; Myocardial infarction; Pneumonia; Rhabdo; - PSHx: 02:16 Biopsies for HPV; Expoloratory surgery for stomach adhesions; as6 - Immunization history:: Adult Immunizations unknown. - Social history:: Smoking status: unknown. - Family history:: not pertinent. - Hospitalizations: : No recent hospitalization is reported. Screenin:37 Abuse screen: Denies threats or abuse. Denies injuries from another. Nutritional kd3 screening: No deficits noted. Tuberculosis screening: No symptoms or risk factors identified. Fall Risk Fall in past 12 months (25 points). IV access (20 points). Assessment: 04:37 General: Appears unkempt, Behavior is cooperative. Pain: Complains of pain in headache. kd3 Neuro: Level of Consciousness is awake, Oriented to person, place, time, situation. Respiratory: Airway is patent. 09:14 Reassessment: Patient appears in no apparent distress at this time. Patient and/or ph family updated on plan of care and expected duration. Pain level reassessed. Pt resting quietly w/ eyes closed, respirations even and unlabored. 10:45 Reassessment: Patient appears in no apparent distress at this time. Patient and/or ph family updated on plan of care and expected duration. Pain level reassessed. Patient is alert, oriented x 3, equal unlabored respirations, skin warm/dry/pink. Pt awake and alert, sitting up in bed. States that she is hungry and requesting food, inpatient order has a regular diet ordered, pt given sandwich and pudding, tolerating well at this time. 11:45 Reassessment: Patient appears in no apparent distress at this time. Patient and/or ph family updated on plan of care and expected duration. Pain level reassessed. Patient is alert, oriented x 3, equal unlabored respirations, skin warm/dry/pink. Pt sitting up in bed, requesting TV remote and to lie back in bed. 12:35 Reassessment: Dr Dietrich at bedside to speak w/ pt, pt appears to be sleeping and provider ph found her difficult to awaken, states that he wishes for pt to be admitted to the ICU d/t concerns for the pt's ability to maintain her airway. Awaiting room assignment in ICU. 13:30 Reassessment: Patient appears in no apparent distress at this time. Patient and/or ph family updated on plan of care and expected duration. Pain level reassessed. Report called to Rylee MCGILL. Vital Signs: 02:11 BP 127 / 100; Pulse 61; Resp 18; Temp 97.6; Pulse Ox 94% on 2 lpm NC; as6 02:14 Weight 90.72 kg (R); Height 5 ft. 6 in. (167.64 cm) (R); as6 04:39 BP 103 / 83; Pulse 57; Resp 19; Pulse Ox 94% on 2 lpm NC; kd3 05:30 BP 95 / 63; Pulse 61; Resp 16 S; Pulse Ox 95% on 2 lpm NC; as6 06:00 BP 83 / 68; Pulse 60; Resp 16 S; Pulse Ox 93% on 5 lpm NC; as6 06:15 BP 72 / 57; Pulse 61; Resp 13 S; Pulse Ox 93% on 5 lpm NC; as6 06:30 BP 75 / 49; Pulse 62; Resp 15 S; Pulse Ox 91% on 5 lpm NC; as6 06:42 Resp 22; rn 06:45 BP 94 / 75; Pulse 65; Resp 22 S; Temp 97.7(R); Pulse Ox 100% on 5 lpm NC; as6 07:15 BP 91 / 72; Pulse 64; Resp 18; Pulse Ox 98% on 5 lpm NC; ph 07:30 BP 106 / 86; Pulse 64; Resp 13; Pulse Ox 98% on 5 lpm NC; ph 08:00 BP 105 / 85; Pulse 63; Resp 14; Pulse Ox 97% on 5 lpm NC; ph 08:30 BP 104 / 77; Pulse 64; Resp 14; Pulse Ox 97% on 5 lpm NC; ph 09:00 BP 107 / 72; Pulse 64; Resp 18; Pulse Ox 98% on 5 lpm NC; ph 09:15 BP 89 / 77; Pulse 67; Resp 14; Pulse Ox 95% on 5 lpm NC; ph 09:45 BP 86 / 70; Pulse 66; Resp 16; Pulse Ox 96% on 5% Nebulizer Mask; ph 10:15 BP 123 / 102; Pulse 66; Resp 16; Pulse Ox 95% on 5 lpm NC; ph 10:45 BP 133 / 108; Pulse 68; Resp 18; Pulse Ox 95% on 5 lpm NC; ph 11:15 BP 101 / 71; Pulse 71; Resp 18; Pulse Ox 96% on 2 lpm NC; ph 11:45 BP 94 / 64; Pulse 71; Resp 18; Pulse Ox 94% on 5 lpm NC; ph 12:15 BP 84 / 57; Pulse 75; Resp 16; Pulse Ox 93% on 5 lpm NC; ph 12:45 BP 79 / 57; Pulse 74; Resp 16; Pulse Ox 94% on 5 lpm NC; ph 13:15 BP 92 / 67; Pulse 73; Resp 14; Pulse Ox 92% on 5 lpm NC; ph 13:45 BP 89 / 65; Pulse 76; Resp 14; Pulse Ox 95% on 2 lpm NC; ph 02:14 Body Mass Index 32.28 (90.72 kg, 167.64 cm) as6 ED Course: 01:55 Patient arrived in ED. mw2 01:55 Guanako Kelly MD is Attending Physician. rn 02:09 Zeus Fitzpatrick RN is Primary Nurse. as6 02:16 Triage completed. as6 02:53 Chest Single View XRAY In Process Unspecified. EDMS 03:30 Missed attempt(s): 22 gauge in left antecubital area. Missed attempt(s): 22 gauge in lp1 left forearm. 03:58 Inserted saline lock: 18 gauge in left EJ, using aseptic technique. Blood collected. as6 04:37 No provider procedures requiring assistance completed. kd3 04:37 Patient has correct armband on for positive identification. Placed in gown. Bed in low kd3 position. Call light in reach. Client placed on continuous cardiac and pulse oximetry monitoring. NIBP monitoring applied. 04:38 Arm band placed on right wrist. kd3 04:51 Vandana Dietrich MD is Hospitalizing Provider. rn 05:52 Head C Spine Cap Wo Con In Process Unspecified. EDMS 14:10 Patient admitted, IV remains in place. ph Administered Medications: 04:36 Drug: vancoMYCIN 1.5 grams Route: IVPB; Rate: calculated rate; Site: Other; kd3 04:36 Drug: Cefepime 1 grams Route: IVPB; Rate: 200 ml/hr; Infused Over: 30 mins; Site: Other;kd3 06:30 Drug: NS 0.9% 1000 ml Route: IV; Rate: 1000 ml; Site: left jugular; as6 09:00 Follow up: Response: No adverse reaction; IV Status: Completed infusion; IV Intake: ph 1000ml Medication: 04:38 VIS not applicable for this client. kd3 Intake: 09:00 IV: 1000ml; Total: 1000ml. ph Outcome: 04:52 Decision to Hospitalize by Provider. rn 15:54 Patient left the ED. ss Signatures: Dispatcher [employer] EDMS Guanako Kelly MD MD rn Smirch, Shelby, RN RN ss Sera Ricardo RN RN lp1 Renetta Albrecht RN RN [facility] Zeus Fitzpatrick RN RN as6 Cely Ford RN RN kd3
--- NOTE | 2021-10-27 04:52 | EDPHYS ---
Physician Documentation [facility] [place] Name: Raiza Whaley Age: 50 yrs Sex: Female : 1970 Arrival Date: 10/27/2021 Time: 01:55 Bed 5 Private MD: ED Physician Guanako Kelly HPI: 10/27 03:04 This 50 yrs old Female presents to ER via EMS with complaints of fall, weak. rn 03:04 Details of fall: The patient fell from an upright position. Onset: The symptoms/episode rn began/occurred at an unknown time. Associated injuries: The patient sustained injury to the head. Severity of symptoms: At their worst the symptoms were moderate, in the emergency department the symptoms are unchanged. It is unknown whether or not the patient has had similar symptoms in the past. It is unknown whether or not the patient has recently seen a physician. EMS reports fall and generalized weakness, pt states generalized weakness for 1 week. No fever. Reports entire body hurts, no vomiting/diarrhea. States hit head. No focal neuro complaint. Found on ground unable to get up on her own. . 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 N/A - Post-menopause kd3 Historical: - Allergies: 02:16 Neosporin ([id number]); as6 - Home Meds: 02:16 Eliquis 5 mg oral tab 1 tab 2 times per day [Active]; furosemide 20 mg Oral tab 1 tab as6 once daily [Active]; gabapentin 300 mg oral cap 1 cap twice a day [Active]; bupropion HCl 150 mg Oral Tb24 1 tab twice a day [Active]; nitroglycerin 0.4 mg SL subl [Active]; aspirin 81 mg Oral TbEC 1 tab once daily [Active]; metoprolol tartrate 25 mg Oral tab 1 tab once daily [Active]; atorvastatin 40 mg oral tab 1 tab once daily [Active]; - PMHx: 02:16 acute renal failure; Anxiety; Atrial Fib; blood clots in lungs; CHF; COPD; Diabetes - as6 IDDM; Endometrosis; Hypertension; Myocardial infarction; Pneumonia; Rhabdo; - PSHx: 02:16 Biopsies for HPV; Expoloratory surgery for stomach adhesions; as6 - Immunization history:: Adult Immunizations unknown. - Social history:: Smoking status: unknown. - Family history:: not pertinent. - Hospitalizations: : No recent hospitalization is reported. ROS: 03:08 Constitutional: Negative for fever, chills, and weight loss, Eyes: Negative for injury, rn pain, redness, and discharge, ENT: Negative for injury, pain, and discharge, Neck: Negative for injury, pain, and swelling, Cardiovascular: Negative for chest pain, palpitations, and edema, Respiratory: Negative for shortness of breath, cough, wheezing, and pleuritic chest pain, Abdomen/GI: + abd pain Back: + back pain : Negative for injury, bleeding, discharge, and swelling, MS/Extremity: Negative for injury and deformity, Skin: Negative for injury, rash, and discoloration, Neuro: + generalized weakness and headache Exam: 03:08 Constitutional: This is a well developed, well nourished patient who is awake, alert, rn and in no acute distress. Head/Face: Normocephalic, atraumatic. Eyes: Periorbital areas with no swelling, redness, or edema. ENT: dry MM, no intraoral trauma Neck: no midline cervical tenderness Cardiovascular: Regular rate and rhythm. No pulse deficits. Respiratory: Speaking full sentences, unlabored. No increased work of breathing, no retractions or nasal flaring. Abdomen/GI: Soft, + mild mid and left sided tenderness, no rebound Back: No spinal tenderness. + areas of skin breakdown/erythema/ecchymosis bilateral buttocks. Skin: Warm, dry MS/ Extremity: Pulses equal, no cyanosis. Neuro: Awake, alert, GCS 15, moves all 4 extremities. Vital Signs: 02:11 BP 127 / 100; Pulse 61; Resp 18; Temp 97.6; Pulse Ox 94% on 2 lpm NC; as6 02:14 Weight 90.72 kg (R); Height 5 ft. 6 in. (167.64 cm) (R); as6 04:39 BP 103 / 83; Pulse 57; Resp 19; Pulse Ox 94% on 2 lpm NC; kd3 05:30 BP 95 / 63; Pulse 61; Resp 16 S; Pulse Ox 95% on 2 lpm NC; as6 06:00 BP 83 / 68; Pulse 60; Resp 16 S; Pulse Ox 93% on 5 lpm NC; as6 06:15 BP 72 / 57; Pulse 61; Resp 13 S; Pulse Ox 93% on 5 lpm NC; as6 06:30 BP 75 / 49; Pulse 62; Resp 15 S; Pulse Ox 91% on 5 lpm NC; as6 06:42 Resp 22; rn 06:45 BP 94 / 75; Pulse 65; Resp 22 S; Temp 97.7(R); Pulse Ox 100% on 5 lpm NC; as6 07:15 BP 91 / 72; Pulse 64; Resp 18; Pulse Ox 98% on 5 lpm NC; ph 07:30 BP 106 / 86; Pulse 64; Resp 13; Pulse Ox 98% on 5 lpm NC; ph 08:00 BP 105 / 85; Pulse 63; Resp 14; Pulse Ox 97% on 5 lpm NC; ph 08:30 BP 104 / 77; Pulse 64; Resp 14; Pulse Ox 97% on 5 lpm NC; ph 09:00 BP 107 / 72; Pulse 64; Resp 18; Pulse Ox 98% on 5 lpm NC; ph 09:15 BP 89 / 77; Pulse 67; Resp 14; Pulse Ox 95% on 5 lpm NC; ph 09:45 BP 86 / 70; Pulse 66; Resp 16; Pulse Ox 96% on 5% Nebulizer Mask; ph 10:15 BP 123 / 102; Pulse 66; Resp 16; Pulse Ox 95% on 5 lpm NC; ph 10:45 BP 133 / 108; Pulse 68; Resp 18; Pulse Ox 95% on 5 lpm NC; ph 11:15 BP 101 / 71; Pulse 71; Resp 18; Pulse Ox 96% on 2 lpm NC; ph 11:45 BP 94 / 64; Pulse 71; Resp 18; Pulse Ox 94% on 5 lpm NC; ph 12:15 BP 84 / 57; Pulse 75; Resp 16; Pulse Ox 93% on 5 lpm NC; ph 12:45 BP 79 / 57; Pulse 74; Resp 16; Pulse Ox 94% on 5 lpm NC; ph 13:15 BP 92 / 67; Pulse 73; Resp 14; Pulse Ox 92% on 5 lpm NC; ph 13:45 BP 89 / 65; Pulse 76; Resp 14; Pulse Ox 95% on 2 lpm NC; ph 02:14 Body Mass Index 32.28 (90.72 kg, 167.64 cm) as6 MDM: 01:55 Patient medically screened. rn 04:49 Differential diagnosis: closed head injury, contusion, fracture, sprain, strain, rn sepsis, UTI, pneumonia, cellulitis, rhabdomyolysis. Data reviewed: vital signs, nurses notes, radiologic studies, plain films, and as a result, I will admit patient. Counseling: I had a detailed discussion with the patient and/or guardian regarding: the historical points, exam findings, and any diagnostic results supporting the discharge/admit diagnosis, lab results, radiology results, the need for further work-up and treatment in the hospital. Response to treatment: the patient's symptoms have mildly improved after treatment, and as a result, I will admit patient. Admission orders: after a detailed discussion of the patient's condition and case, the admit orders are written by me. 06:31 ED course: Pt now with documented BP 75/49. 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 Pt meets severe sepsis criteria, lactate normal. Pt with CHF, ideal body weight of 60 kg, will start with 1L NS bolus given SBP < 90 and reevaluate.. 06:40 ED course: CT back, admission delayed due to trouble getting IV and delay in CT rn results. Pt now admitted to Dr. Dietrich at this time.. 06:51 ED course: Pt with 2 BP < 90 SBP, meets criteria now for severe sepsis with septic rn shock. Fluids initiated. BP already improving to 94/75 with MAP 82. Will continue to reassess given CHF. Sepsis reevaluation complete. . 07:01 ED course: BP currently 98/71 after 500cc bolus, will give other half of 1L bolus. . rn 10/27 02:06 Order name: Blood Culture Adult (2) rn 10/27 02:06 Order name: CBC with Diff; Complete Time: 04:48 rn 10/27 02:06 Order name: CMP; Complete Time: 04:48 rn 10/27 02:06 Order name: Lactate; Complete Time: 03:42 rn 10/27 02:06 Order name: Protime (+inr); Complete Time: 04:27 rn 10/27 02:06 Order name: Ptt, Activated; Complete Time: 04:27 rn 10/27 02:06 Order name: Urine Culture rn 10/27 02:06 Order name: Urine Microscopic Only; Complete Time: 04:48 rn 10/27 03:02 Order name: Creatine Phosphokinase; Complete Time: 04:48 EDMS 10/27 03:07 Order name: BNP; Complete Time: 04:48 rn 10/27 04:21 Order name: Urine Dipstick-Ancillary; Complete Time: 04:27 EDMS 10/27 04:22 Order name: CBC Smear Scan; Complete Time: 04:48 EDMS 10/27 05:27 Order name: COVID-19 SARS RT PCR (Document "Date of Onset" if Symptomatic); Complete lp1 Time: 06:27 10/27 02:06 Order name: Chest Single View XRAY rn 10/27 05:10 Order name: Head C Spine Cap Wo Con EDMS 10/27 06:43 Order name: ABG rn 10/27 06:57 Order name: Glucose, Ancillary Testing; Complete Time: 06:58 EDMS 10/27 09:13 Order name: CBC with Automated Diff EDMS 10/27 09:13 Order name: CBC with Automated Diff EDMS 10/27 09:13 Order name: Comprehensive Metabolic Panel EDMS 10/27 09:13 Order name: Comprehensive Metabolic Panel EDMS 10/27 09:14 Order name: Lactate EDMS 10/27 09:14 Order name: Magnesium EDMS 10/27 09:14 Order name: Procalcitonin EDMS 10/27 15:30 Order name: Comprehensive Metabolic Panel EDMS 10/27 02:06 Order name: Accucheck; Complete Time: 04:44 rn 10/27 02:06 Order name: Cardiac monitoring; Complete Time: 04:37 rn 10/27 02:06 Order name: EKG - Nurse/Tech; Complete Time: 03:07 rn 10/27 02:06 Order name: IV Saline Lock - Large Bore; Complete Time: 04:03 rn 10/27 02:06 Order name: Labs collected and sent; Complete Time: 04:37 rn 10/27 02:06 Order name: O2 Per Protocol; Complete Time: 03:07 rn 10/27 02:06 Order name: O2 Sat Monitoring; Complete Time: 03:07 rn 10/27 02:06 Order name: Urine Dipstick-Ancillary (obtain specimen); Complete Time: 04:37 rn 10/27 06:43 Order name: Glucose Level; Complete Time: 06:48 rn 10/27 09:13 Order name: Regular EDMS Administered Medications: 04:36 Drug: vancoMYCIN 1.5 grams Route: IVPB; Rate: calculated rate; Site: Other; kd3 04:36 Drug: Cefepime 1 grams Route: IVPB; Rate: 200 ml/hr; Infused Over: 30 mins; Site: Other;kd3 06:30 Drug: NS 0.9% 1000 ml Route: IV; Rate: 1000 ml; Site: left jugular; as6 09:00 Follow up: Response: No adverse reaction; IV Status: Completed infusion; IV Intake: ph 1000ml Disposition Summary: 10/27/21 04:52 Hospitalization Ordered Hospitalization Status: Inpatient Admission rn Provider: Vandana Dietrich rn Condition: Stable rn Problem: new rn Symptoms: have improved rn Bed/Room Type: Standard rn Location: Intensive Care Unit(10/27/21 13:49) eb Room Assignment: 3-(10/27/21 13:49) eb Diagnosis - Altered mental status, unspecified rn - UTI/ Urinary tract infection, site not specified rn - Cellulitis of buttock rn - Hypokalemia rn - Severe sepsis with septic shock rn Forms: - Medication Reconciliation Form rn - SBAR form undergraduate intern time excluding procedures: 06:52 Critical care time: Bedside Care: 35 minutes, Consultation: 5 minutes. Total time: 40 rn minutes Signatures: Dispatcher [employer] EDW[facility] Guanako Kelly MD MD rn Smirch, Shelby, RN RN Rylee Coronado Ashby, RN RN as6 Cely Ford, RN RN Renetta Croft RN ph Corrections: (The following items were deleted from the chart) 03:02 02:09 CREATINE PHOSPHOKINASE+C.LAB.BRZ ordered. EDWY EDMS 03:13 03:08 Constitutional: This is a well developed, well nourished patient who is awake, rn alert, and in no acute distress. rn 05:10 02:07 Head C Spine CAP W Con+CT.RAD.BRZ ordered. [facility] EDMS 06:43 06:31 ED course: Pt now with documented BP 75/49. Pt with source of infection (A) UTI, rn (B) Acute change in mental status, organ dysfunction (C) SBP<90. Pt meets severe sepsis criteria, lactate normal. Pt with CHF, ideal body weight of 60 kg, will start with 1L NS bolus given SBP < 90 and reevaluate. rn 07:05 04:52 Telemetry/MedSurg (Inpatient) rn rn 07:05 04:52 rn rn 09:38 07:05 Intensive Care Unit rn ss 09:38 07:05 rn ss 12:07 09:38 [facility] ER HOLD ss eb 12:07 09:38 ERHOLD- ss eb 12:40 12:07 Telemetry/MedSurg (Inpatient) eb ss 12:40 12:07 217 eb ss 13:49 12:40 [facility] ER HOLD ss eb 13:49 12:40 ERHOLD- ss eb
[2021-10-27] MEDS ORDERED: NA CHLORIDE 0.9% 1,000 ML ONE (06:35)
[2021-10-27] MEDS ORDERED: KCL 20 MEQ/100 mL IVPB 100 ML IV ONE (06:36)
[2021-10-27 07:18] LABS: Arterial Blood Carboxyhemoglob 2.1 % (0-1.5); Blood Gas Oxyhemoglobin 92.2 % (94-97); Blood O2 Saturation 95.3 % (92-98.5)
[2021-10-27] MEDS ORDERED: ONDANSETRON 4 MG/2 ML VIAL IV PRN (09:10)
[2021-10-27] MEDS ORDERED: MORPHINE 2 MG/ML SYR IV PRN (09:10)
[2021-10-27 15:29] LABS: Albumin 3.3 g/dL (3.4-5.0); Bilirubin Total 0.4 mg/dL (0.2-1.0); Potassium 3.4 mmol/L (3.5-5.1); Protein, Total 7.3 g/dL (6.4-8.2)
[2021-10-27] MEDS: NA CHLORIDE 0.9% 1,000 ML IV SCH ×2 (16:29→20:00)
--- NOTE | 2021-10-27 17:30 | P.HP ---
Certification for Inpatient Patient admitted to: Inpatient With expected LOS: >2 Midnights Patient will require the following post-hospital care: None Practitioner: I am a practitioner with admitting privileges, knowledge of patient current condition, hospital course, and medical plan of care. Services: Services provided to patient in accordance with Admission requirements found in Title 42 Section 412.3 of the Code of Federal Regulations Patient History Date of Service: 10/27/21 Reason for admission: Altered mental status History of Present Illness: patient is a 50-year-old female came to the hospital with confusion. Patient had was not responding and is very lethargic. She is morbidly obese and she has multiple cardiac issues. Patient was found have urinary tract infection. Her mentation is altered. She also is slightly dehydrated. She was started on IV fluids and IV antibiotics. She is very lethargic and concern for her protecting her airway. Decision was made to admit her to the ICU for further treatment. Allergies No Known Allergies Allergy (Unverified 08/13/17 11:16) Home Medications: ALPRAZolam [Alprazolam] 1 mg PO BID 06/04/21 Nitroglycerin 0.4 mg SL PRN 06/04/21 Atorvastatin Calcium [Lipitor] 40 mg PO BEDTIME #30 tab 06/10/21 buPROPion HCL [Bupropion HCl Sr] 150 mg PO Q12H 06/22/21 Furosemide [Lasix] 20 mg PO DAILY #30 tablet 06/30/21 Apixaban [Eliquis] 5 mg PO BID #60 tablet 07/08/21 Aspirin [Aspirin EC] 81 mg PO DAILY 10/27/21 Gabapentin 300 mg PO BID 10/27/21 Metoprolol Tartrate 12.5 mg PO BID 10/27/21 - Past Medical/Surgical History Has patient received pneumonia vaccine in the past: Yes Diabetic: Yes -: Anxiety disorder -: Diabetes mellitus -: CAD -: Hyperlipidemia -: ARF -: CHF -: COPD -: HTN -: Afib -: [place] -: adhesion removal -: tubal ligation -: Heart cath Psychosocial/ Personal History: Unable to be obtained, patient lives at [facility] - Family History Mother Medical History: Lung disease, Cancer Notes: CA and COPD Father Medical History: Diabetes, Stroke - Social History Smoking Status: Current every day smoker Alcohol use: No CD- Drugs: No Caffeine use: No Review of Systems 10-point ROS is otherwise unremarkable Physical Examination - Vital Signs Temperature: 97.3 F Blood Pressure: 104/53 Pulse: 72 Respirations: 21 Pulse Ox (%): 91 - Physical Exam General: Alert, In no apparent distress, Delirious, Unresponsive HEENT: Atraumatic, PERRLA, Mucous membr. moist/pink, EOMI, Sclerae nonicteric Neck: Supple, 2+ carotid pulse no bruit, No LAD, Without JVD or thyroid abnormality Respiratory: Clear to auscultation bilaterally, Normal air movement Cardiovascular: Regular rate/rhythm, Normal S1 S2, No murmurs Gastrointestinal: Normal bowel sounds, Soft and benign, Non-distended, No tenderness Musculoskeletal: No clubbing, No swelling, No tenderness Integumentary: No rashes Neurological: Normal gait, Normal speech, Normal strength at 5/5 x4 extr, Normal tone, Sensation intact, Cranial nerves 3-12 intact, Normal affect Lymphatics: No axilla or inguinal lymphadenopathy - Studies Laboratory Data (last 24 hrs) 10/27/21 03:55: PT 12.6 H, INR 1.14, APTT 28.6 10/27/21 03:55: Sodium 140, Potassium 2.7 L*, BUN 30 H, Creatinine 1.40 H, Glucose 137 H, Total Bilirubin 0.6, AST 83 H, ALT 58, Alkaline Phosphatase 93 10/27/21 03:55: WBC 7.3, Hgb 17.1 H, Hct 52.2 H, Plt Count 190 Microbiology Data (last 24 hrs): 10/27/21 03:55 Blood - Blood Anaerobic Blood Culture - Final 10/27/21 02:41 Blood - Blood Anaerobic Blood Culture - Final Assessment & Plan - Problems (Diagnosis) (1) AMS (altered mental status) Current Visit: Yes Status: Acute (2) Acute on chronic renal failure Current Visit: No Status: Acute Qualifiers: (3) Atrial fibrillation Onset Date: 08/14/17 Current Visit: No Status: Acute Qualifiers: (4) COPD (chronic obstructive pulmonary disease) Onset Date: 08/14/17 Current Visit: No Status: Acute Qualifiers: (5) History of pulmonary embolism Current Visit: No Status: Acute (6) CHF (congestive heart failure) Current Visit: No Status: Chronic Qualifiers: (7) Obesity Current Visit: No Status: Chronic Qualifiers: - Plan -IV hydration -IV antibiotics -cultures are pending -check renal function and electrolytes -MRI of the brain if her mental status is not improving -bed check in place -physical therapy evaluation once mentation is improved -discuss code status with family Discharge Plan: Home Plan to discharge in: Greater than 2 days - Advance Directives Does patient have a Living Will: No Does patient have a Durable POA for Healthcare: No - Code Status/Comfort Care Code Status Assessed: Yes Code Status: Full Code Critical Care: Yes Time Spent Managing PTS Care (In Minutes): 50
--- NOTE | 2021-10-27 19:19 | RAD REPORT ---
EXAM DESCRIPTION: CT Head and Cervical Spine Without Intravenous Contrast CLINICAL HISTORY: The patient is 50 years old and is Female; found on ground, fall, AMS, swelling on buttocks, + abd swelling and pain TECHNIQUE: Axial computed tomography images of the head/brain and cervical spine without intravenous contrast. Sagittal and coronal reformatted images were created and reviewed. This CT exam was pe rformed using one or more of the following dose reduction techniques: automated exposure control, a djustment of the mA and/or kV according to patient size, and/or use of iterative reconstruction techn ique. COMPARISON: CT of the head August 13, 2017 FINDINGS: BRAIN: Intracranial hemorrhage, mass effect or midline shift is seen. There are no extra -axial fluid collections. There is diffuse cerebral atrophy present, consistent with this patient's a ge. There is patchy hypoattenuation of the deep white matter which is non-specific, but most likely owing to chronic small vessel ischemic change in a patient of this age group. VENTRICLES: Unremarkable. No ventriculomegaly. SKULL: No acute fracture. SINUSES: Unremarkable as visualized. No acute sinusitis. MASTOID AIR CELLS: Small mastoid effusions are present. VERTEBRAE: The vertebral body heights and alignment are maintained. No acute fracture. DISCS/SPINAL CANAL/NEURAL FORAMINA: The intervertebral disc spaces are maintained. No spinal lanre l stenosis. SOFT TISSUES: The soft tissues are normal. LUNG APICES: Unremarkable as visualized. IMPRESSION: 1. Age-related atrophy and chronic white matter ischemic changes, with no evidence of an acute intracranial abnormality. 2. No fracture or malalignment of the cervical spine. EXAM DESCRIPTION: CT Chest, Abdomen and Pelvis Without Intravenous Contrast CLINICAL HISTORY: The patient is 50 years old and is Female; found on ground, fall, AMS, swelling on buttocks, + abd swelling and pain TECHNIQUE: Axial computed tomography images of the chest, abdomen and pelvis without intravenous con trast. Sagittal and coronal reformatted images were created and reviewed. This CT exam was perfor med using one or more of the following dose reduction techniques: automated exposure control, adjus tment of the mA and/or kV according to patient size, and/or use of iterative reconstruction technique . MIP reconstructed images were created and reviewed. COMPARISON: No relevant prior studies available. FINDINGS: CHEST: LUNGS: Dependent densities in the lung bases are noted. The lungs are otherwise clear. The trache obronchial tree is widely patent. PLEURAL SPACE: Unremarkable. No significant effusion. No pneumothorax. HEART: No cardiomegaly. No pericardial effusion. ABDOMEN: LIVER: Homogeneous without focal mass. GALLBLADDER AND BILE DUCTS: The gallbladder is moderately distended. PANCREAS: Fatty atrophy of the pancreas is noted. No ductal dilation. SPLEEN: Unremarkable. ADRENALS: Unremarkable. No mass. KIDNEYS AND URETERS: Innumerable exophytic bilateral renal cysts are present. No follow-up imagin g is recommended. There is no hydronephrosis or hydroureter of either kidney. No obstructing renal or ureteral calculus is seen. STOMACH AND BOWEL: The stomach is minimally distended. The small bowel is normal in caliber. Stoo l is present throughout colon. There is no mucosal thickening or evidence of bowel obstruction. PELVIS: APPENDIX: The appendix is normal in caliber without surrounding inflammation. BLADDER: Unremarkable. No stones. REPRODUCTIVE: Unremarkable as visualized. CHEST, ABDOMEN and PELVIS: INTRAPERITONEAL SPACE: Unremarkable. No significant fluid collection. No free air. BONES/JOINTS: There is no acute fracture visualized axial and appendicular skeleton. The vertebra l body heights and alignment are maintained. SOFT TISSUES: The soft tissues are normal. VASCULATURE: Atherosclerosis of the vasculature is present. The vessels are normal in caliber. No aortic aneurysm. LYMPH NODES: Unremarkable. No enlarged lymph nodes. IMPRESSION: No evidence of solid organ injury or traumatic bony findings on this noncontrasted CT of the chest, abdomen, and pelvis. Electronically signed by: Sarah Kumar MD 10/27/2021 6:22 AM CDT Due to temporary technical issues with the PACS/Fluency reporting system, reports are being signed by the in house radiologists without review as a courtesy to insure prompt reporting. The interpreting radiologist is fully responsible for the content of the report.
[2021-10-27] MEDS ORDERED: CEFTRIAXONE 1,000 MG in NA CHLORIDE 0.9% 50 ML IVPB SCH (21:00)
[2021-10-27] MEDS ORDERED: D50W 25 GM/50 ML SYRINGE IV PRN (21:17)
[2021-10-27] MEDS ORDERED: GLUCAGON 1 MG/VIAL IM PRN (21:17)
[2021-10-27] MEDS ORDERED: VANCOMYCIN 1 GM in NA CHLORIDE 0.9% 250 ML IVPB SCH (21:18)
[2021-10-27] MEDS ORDERED: D10W 125 ML IV PRN (21:26)
[2021-10-27] MEDS ORDERED: VANCOMYCIN 2 GM in NA CHLORIDE 0.9% 500 ML IVPB SCH (22:00)
[2021-10-28] MEDS: NA CHLORIDE 0.9% 1,000 ML IV SCH ×2 (03:24→14:05)
[2021-10-28 04:54] LABS: Absolute Lymphocytes (CBC) 0.6 K/uL (0.7-4.9); Hematocrit 44.8 % (36.0-45.0); Lymphocytes % 12.5 % (15.3-44.8); MCV 108.4 fL (80-100); MPV 9.4 fL (7.6-11.3); RBC Red Blood Cell Count 4.13 M/uL (3.86-4.86)
[2021-10-28 05:15] LABS: Albumin 2.4 g/dL (3.4-5.0); Bilirubin Total 0.4 mg/dL (0.2-1.0)
[2021-10-28 05:17] LABS: Potassium 2.8 mmol/L (3.5-5.1)
[2021-10-28] MEDS: KCL 20 MEQ/100 mL IVPB 20 MEQ/100 ML BAG IV SCH ×3 (06:12→09:00)
[2021-10-28] MEDS: INSULIN -REGULAR HUMAN 50 UNIT/0.5 ML ML SQ SCH ×4 (07:16→19:58)
[2021-10-28] MEDS: CEFEPIME 1 GM in NA CHLORIDE 0.9% 100 ML IV SCH ×2 (08:43→19:50)
[2021-10-28] MEDS ORDERED: POTASSIUM 25 MEQ EFFERV TAB PO ONE (09:31)
--- NOTE | 2021-10-28 12:02 | P.PN ---
Subjective Date of Service: 10/28/21 Pt more awake and alert; doing better; start with PT Review of Systems 10-point ROS is otherwise unremarkable Physical Examination - Vital Signs Temperature: 98.2 F Blood Pressure: 97/77 Pulse: 75 Respirations: 16 Pulse Ox (%): 98 - Physical Exam General: Alert, In no apparent distress, Oriented x3 HEENT: Atraumatic, PERRLA, EOMI Neck: Supple, JVD not distended Respiratory: Diminished, Crackles/rales Cardiovascular: Regular rate/rhythm, Normal S1 S2, No murmurs Gastrointestinal: Normal bowel sounds, Soft and benign, Non-distended, No tenderness Musculoskeletal: No clubbing, No swelling, No tenderness Neurological: Sensation intact, Cranial nerves 3-12 intact - Studies Microbiology Data (last 24 hrs): 10/27/21 02:41 Blood - Blood Anaerobic Blood Culture - Final 10/27/21 03:55 Blood - Blood Anaerobic Blood Culture - Final Medications List Reviewed: Yes Assessment & Plan - Problems (Diagnosis) (1) AMS (altered mental status) Current Visit: Yes Status: Acute (2) Acute on chronic renal failure Current Visit: No Status: Acute Qualifiers: (3) Atrial fibrillation Onset Date: 08/14/17 Current Visit: No Status: Acute Qualifiers: (4) COPD (chronic obstructive pulmonary disease) Onset Date: 08/14/17 Current Visit: No Status: Acute Qualifiers: (5) History of pulmonary embolism Current Visit: No Status: Acute (6) CHF (congestive heart failure) Current Visit: No Status: Chronic Qualifiers: (7) Obesity Current Visit: No Status: Chronic Qualifiers: (8) Hypokalemia Current Visit: Yes Status: Acute (9) Metabolic alkalosis Current Visit: Yes Status: Acute - Plan -IV hydration/hypokalemia/metabolic alkalosis -IV antibiotics -cultures are pending -check renal function and electrolytes -MRI of the brain if her mental status is not improving -bed check in place -physical therapy evaluation once mentation is improved -discuss code status with family Discharge Plan: Home Plan to discharge in: Greater than 2 days - Advance Directives Does patient have a Living Will: No Does patient have a Durable POA for Healthcare: No - Code Status/Comfort Care Code Status: Full Code Critical Care: No Time Spent Managing PTS Care (In Minutes): 35
[2021-10-28] MEDS ORDERED: POTASSIUM CL SA 10 MEQ TAB PO ONE (15:00)
[2021-10-28] MEDS: ATORVASTATIN 40 MG TAB PO SCH (19:49)
[2021-10-28] MEDS: APIXABAN 5 MG TABLET PO SCH (19:49)
[2021-10-28] MEDS: GABAPENTIN 300 MG CAP PO SCH (19:49)
[2021-10-28] MEDS: VANCOMYCIN 2 GM in NA CHLORIDE 0.9% 500 ML IVPB SCH (20:48)
[2021-10-28] MEDS: METOPROLOL TAR 25 MG TAB PO SCH (21:11)
[2021-10-28] MEDS: BUPROPRION HCL S.R. 150MG TAB PO SCH (21:11)
[2021-10-29] MEDS: NA CHLORIDE 0.9% 1,000 ML IV SCH (02:42)
[2021-10-29 05:18] LABS: Magnesium 2.1 mg/dL (1.8-2.4); Potassium 3.4 mmol/L (3.5-5.1)
[2021-10-29] MEDS: INSULIN -REGULAR HUMAN 50 UNIT/0.5 ML ML SQ SCH ×4 (06:52→21:00)
[2021-10-29] MEDS: METOPROLOL TAR 25 MG TAB PO SCH (07:37)
[2021-10-29] MEDS: FUROSEMIDE 20 MG TABLET PO SCH (07:44)
[2021-10-29] MEDS: BUPROPRION HCL S.R. 150MG TAB PO SCH ×2 (07:47→22:15)
[2021-10-29] MEDS: ASPIRIN EC 81 MG TAB PO SCH (07:48)
[2021-10-29] MEDS: GABAPENTIN 300 MG CAP PO SCH ×2 (07:48→22:15)
[2021-10-29] MEDS: APIXABAN 5 MG TABLET PO SCH ×2 (07:48→22:14)
[2021-10-29] MEDS: CEFEPIME 1 GM in NA CHLORIDE 0.9% 100 ML IV SCH ×2 (07:48→22:14)
[2021-10-29] MEDS ORDERED: POTASSIUM 25 MEQ EFFERV TAB PO ONE (09:00)
[2021-10-29] MEDS: MIDODRINE HCL 5 MG TABLET PO SCH ×3 (09:47→22:15)
--- NOTE | 2021-10-29 11:30 | RAD REPORT ---
EXAM DESCRIPTION: XR Chest, 1 View CLINICAL HISTORY: The patient is 50 years old and is Female; AMS TECHNIQUE: Frontal view of the chest. COMPARISON: No relevant prior studies available. FINDINGS: Limitations: Evaluation limited due to technique/positioning. Lungs: Mildly prominent interstitial markings, left greater than right. No consolidation. Pleural space: Unremarkable. No pneumothorax. Heart: Unremarkable. Mediastinum: Unremarkable. Bones/joints: Unremarkable. IMPRESSION: Mildly prominent interstitial markings, left greater than right. No consolidation. Electronically signed by: Daniel Ross MD 10/27/2021 3:36 AM CDT Due to temporary technical issues with the PACS/Fluency reporting system, reports are being signed by the in house radiologist without review as a courtesy to ensure prompt reporting. The interpreting r adiologist is fully responsible for the content of the report.
--- NOTE | 2021-10-29 11:55 | EKG ---
Test Date: 2021-10-27 Test Time: 02:53:14 Staff Accountant: MEASUREMENT RESULTS: Intervals: Rate: 55 [place]: 248 QRSD: 160 QT: 542 QTc: 518 [place]: P: 66 [place]: 248 QRS: -55 T: 30 INTERPRETIVE STATEMENTS: Sinus bradycardia with 1st degree AV block Left axis deviation Left bundle branch block Abnormal ECG Compared to ECG 09/12/2021 15:49:45 First degree AV block now present Left bundle-branch block now present Sinus rhythm no longer present Myocardial infarct finding no longer present Electronically Signed On 10-29-21 11:50:37 CDT by Justin Real
--- NOTE | 2021-10-29 12:34 | P.PN ---
Subjective Date of Service: 10/29/21 Chief Complaint: Altered mental status Subjective: No new changes (As well as hypotension yesterday, on gentle IV fluid this morning Systolic blood pressure staying in the low 70s to 80s) Physical Examination - Vital Signs Temperature: 96.6 F Blood Pressure: 80/65 Pulse: 61 Respirations: 14 Pulse Ox (%): 97 - Studies Microbiology Data (last 24 hrs): 10/27/21 04:15 Catheterized Urine [place] Count - Final >100,000 CFU/ML. 10/27/21 04:15 Catheterized Urine - Final Escherichia Coli 10/27/21 03:55 Blood - Blood Anaerobic Blood Culture - Final Medications List Reviewed: Yes Assessment And Plan Physician Review: Patient Assessed, Agree with Above Assessment and Plan Physician Review Additional Text: 10/29/21 12:31 - Physical Exam General: Alert, In no apparent distress, Oriented x3, on nasal cannula O2 HEENT: Atraumatic, PERRLA, EOMI Neck: Supple, JVD not distended Respiratory: Diminished, still crackles/rales Cardiovascular: Regular rate/rhythm, Normal S1 S2, No murmurs Gastrointestinal: Normal bowel sounds, Soft and benign, Non-distended, No tenderness Musculoskeletal: No clubbing, No swelling, No tenderness Neurological: Sensation intact, Cranial nerves 3-12 intact - Studies Microbiology Data (last 24 hrs): 10/27/21 02:41 Blood - Blood Anaerobic Blood Culture - Final 10/27/21 03:55 Blood - Blood Anaerobic Blood Culture - Final Medications List Reviewed: Yes Assessment & Plan - Problems (Diagnosis) (1) AMS (altered mental status) Current Visit: Yes Status: Acute (2) Acute on chronic renal failure Current Visit: No Status: Acute Qualifiers: (3) Atrial fibrillation Onset Date: 08/14/17 Current Visit: No Status: Acute Qualifiers: (4) COPD (chronic obstructive pulmonary disease) Onset Date: 08/14/17 Current Visit: No Status: Acute Qualifiers: (5) History of pulmonary embolism Current Visit: No Status: Acute (6) CHF (congestive heart failure) Current Visit: No Status: Chronic Qualifiers: (7) Obesity Current Visit: No Status: Chronic Qualifiers: (8) Hypokalemia Current Visit: Yes Status: Acute (9) Metabolic alkalosis Current Visit: Yes Status: Acute - Plan Bacteremiafollow full blood culture Mixed picture with 1 out of 2 with gram-positive coccipossible contamination Another 1 out of 2 with gram-negative rods likely E. coli from UTI infection Continue cefepime and Vanco for now Follow echodone today to rule out vegetations Septic shockDC IV fluids since history of systolic heart failure Start midodrine DC'd metoprolol Follow heart rate trend A. fib -is rate controlled now Hold off metoprolol for now since hypotension Continue Eliquispatient reports not taking Eliquis for 3 weeks prior to admission due to insurance issues Option of switching back to Coumadin discussed and she is agreeable We will plan Coumadin with Lovenox bridge when off ICU UTIwith E. coli, continue cefepime be switched to Levaquin Obesityweight loss advised Sacral rashlikely dermatitis, although could be stage II sacral decubitus ulcer Continue offloading Apply topical cream to area Metabolic encephalopathyresolved Astheniacontinue PT/OT Dispositionwill need possible PICC line for prolonged antibiotics course
[2021-10-29] MEDS ORDERED: POTASSIUM CL SA 10 MEQ TAB PO ONE (17:00)
[2021-10-29] MEDS: VANCOMYCIN 2 GM in NA CHLORIDE 0.9% 500 ML IVPB SCH (21:00)
[2021-10-29] MEDS: ATORVASTATIN 40 MG TAB PO SCH (22:14)
[2021-10-30 07:12] LABS: Potassium 3.3 mmol/L (3.5-5.1)
[2021-10-30] MEDS: INSULIN -REGULAR HUMAN 50 UNIT/0.5 ML ML SQ SCH ×4 (07:30→20:37)
[2021-10-30] MEDS ORDERED: POTASSIUM 25 MEQ EFFERV TAB PO ONE (07:39)
[2021-10-30] MEDS: CEFEPIME 1 GM in NA CHLORIDE 0.9% 100 ML IV SCH ×2 (08:11→20:31)
[2021-10-30] MEDS: MIDODRINE HCL 5 MG TABLET PO SCH ×3 (08:11→20:27)
[2021-10-30] MEDS: GABAPENTIN 300 MG CAP PO SCH ×2 (08:11→20:28)
[2021-10-30] MEDS: APIXABAN 5 MG TABLET PO SCH ×2 (08:11→20:27)
[2021-10-30] MEDS: ASPIRIN EC 81 MG TAB PO SCH (08:11)
[2021-10-30] MEDS: FUROSEMIDE 20 MG TABLET PO SCH (08:12)
[2021-10-30] MEDS: BUPROPRION HCL S.R. 150MG TAB PO SCH ×2 (08:12→20:30)
[2021-10-30 08:29] VITALS: BMI 39.4
--- NOTE | 2021-10-30 08:41 | ECHO ---
HEIGHT: 5 ft 6 in WEIGHT: 244 lb 9.6 oz DATE OF STUDY: 10/29/[address]: Vandana Dietrich MD 2-DIMENSIONAL: YES M.MODE: YES DOPPLER: YES COLOR FLOW: YES TDS: PORTABLE: YES DEFINITY: BUBBLE STUDY: DIAGNOSIS: CONGESTIVE HEART FAILURE CARDIAC HISTORY: CATHERIZATION: SURGERY: PROSTHETIC VALVE: PACEMAKER: MEASUREMENTS (cm) DIASTOLIC (NORMALS) SYSTOLIC (NORMALS) IVSd 1.2 (0.6-1.2) LA Diam 3.6 (1.9-4.0) LVEF 58% LVIDd 4.4 (3.5-5.7) LVIDs 3.1 (2.0-3.5) %FS 30% LVPWd 1.3 (0.6-1.2) Ao Diam 2.8 (2.0-3.7) 2 DIMENSIONAL ASSESSMENT: RIGHT ATRIUM: NORMAL LEFT ATRIUM: NORMAL RIGHT VENTRICLE: NORMAL LEFT VENTRICLE: NORMAL TRICUSPID VALVE: NORMAL MITRAL VALVE: NORMAL PULMONIC VALVE: NORMAL AORTIC VALVE: NORMAL PERICARDIAL EFFUSION: NONE AORTIC ROOT: NORMAL LEFT VENTRICULAR WALL MOTION: NORMAL DOPPLER/COLOR FLOW: NORMAL COMMENTS: NORMAL LEFT VENTRICULAR EJECTION FRACTION 55-60%. NORMAL WALL MOTION. TECHNOLOGIST: OLGA SKINNER
[2021-10-30] MEDS: POTASSIUM CL SA 10 MEQ TAB PO SCH ×2 (09:00→20:28)
--- NOTE | 2021-10-30 11:13 | RAD REPORT ---
EXAM DESCRIPTION: RAD - Chest Single View - 10/30/2021 11:08 am CLINICAL HISTORY: Device placement PICC line placement IMPRESSION: PICC line with its tip in the distal superior vena cava
--- NOTE | 2021-10-30 12:03 | P.CNS ---
Date of Consult: 10/30/21 Chief Complaint: Altered mental status History of Present Illness: The patient is a 50-year-old female with a past medical history of diabetes, CAD, hyperlipidemia, history of ND, atrial fibrillation, COPD, hyperlipidemia who presented to the emergency department after sustaining a mechanical fall at home. Per chart review, patient was very confused/lethargic on admission. Blood cultures obtained on 10/27 grew Stph lugdunensis in both aerobic bottles only sensitive to vancomycin. Repeat cultures obtained on 10/30 are pending. Urine culture obtained on 10/27 grew E. coli pansensitive. Patient currently on 3 L of oxygen via nasal cannula states she is having some shortness of breath. St[facility] CT on 10/27 showed no acute findings. Transthoracic echocardiogram negative for acute vegetation. Patient reports shortness of breath, and chronic abdominal pain. She denies dysuria, increased urinary frequency/urgency, flank/lower back pain, nausea, vomiting, diarrhea, or chest pain. She is currently on vancomycin and cefepime. Allergies bacitracin [From Neosporin ([id number])] Allergy (Verified 10/30/21 06:56) Itching neomycin [From Neosporin ([id number])] Allergy (Verified 10/30/21 06:56) Itching polymyxin B [From Neosporin ([id number])] Allergy (Verified 10/30/21 06:56) Itching Home Medications: ALPRAZolam [Alprazolam] 1 mg PO BID 06/04/21 Nitroglycerin 0.4 mg SL PRN 06/04/21 Atorvastatin Calcium [Lipitor] 40 mg PO BEDTIME #30 tab 06/10/21 buPROPion HCL [Bupropion HCl Sr] 150 mg PO Q12H 06/22/21 Furosemide [Lasix] 20 mg PO DAILY #30 tablet 06/30/21 Apixaban [Eliquis] 5 mg PO BID #60 tablet 07/08/21 Aspirin [Aspirin EC] 81 mg PO DAILY 10/27/21 Gabapentin 300 mg PO BID 10/27/21 Metoprolol Tartrate 12.5 mg PO BID 10/27/21 - Past Medical/Surgical History Diabetic: Yes -: Anxiety disorder -: Diabetes mellitus -: CAD -: Hyperlipidemia -: ARF -: CHF -: COPD -: HTN -: Afib -: ND -: adhesion removal -: tubal ligation -: Heart cath Psychosocial/ Personal History: Unable to be obtained, patient lives at [facility] - Family History Mother Medical History: Lung disease, Cancer Notes: CA and COPD Father Medical History: Diabetes, Stroke - Social History Smoking Status: Unknown if ever smoked Alcohol use: No CD- Drugs: No Caffeine use: No Review of Systems 10-point ROS is otherwise unremarkable Physical Examination Temp Pulse Resp BP Pulse Ox 97.0 F 58 16 88/71 L 99 10/30/21 08:00 10/30/21 11:00 10/30/21 11:00 10/30/21 11:00 10/30/21 11:00 General: Alert, Oriented x3, Obese HEENT: Atraumatic Neck: Supple Respiratory: Clear to auscultation bilaterally, Normal air movement Cardiovascular: Other (Difficult auscultating secondary to body habitus) Capillary refill: <2 Seconds Gastrointestinal: Normal bowel sounds, Soft and benign Musculoskeletal: No clubbing, No swelling, No contractures, No erythema Integumentary: No rashes, No breakdown, Other (Bilateral buttocks wound, minimal tissue breakdown with flaky skin) Urinary: Other (Pure wick) External genitalia: Other (Genital warts) Conclusions/Impression: Antibiotics: Vancomycin: 10/28current Cefepime: 10/28current Gram-positive bacteremia Blood cultures obtained on 10/27 grew Staph lugdunesis in both aerobic bottles, repeat cultures obtained on 10/30 pending. Susceptible only to vancomycin, recommend continuing this antibiotics for 2 weeks following negative blood culture report. Source of infection unclear, transthoracic echocardiogram negative for acute vegetation, stovall CT normal. Patient does have rash/wound on bilateral buttocks which could be source of infection however is still unclear. Urinary tract infection Urine culture obtained on 10/27 grew E. coli, pansensitive. Recommend de-escalating IV cefepime to oral Augmentin Morbid obesity, diabetes, COPD, CHF -Medical management per primary team Plan of care discussed with Dr. Garrett Thank you for consultation
--- NOTE | 2021-10-30 12:27 | P.PN ---
Subjective Date of Service: 10/30/21 Chief Complaint: Altered mental status Subjective: No new changes, No C/O voiced (She states she will be unable to come to the outpatient hospital unit for IV antibiotics Will prefer to stay in the hospital until she finished antibiotics course) Physical Examination - Vital Signs Temperature: 97.0 F Blood Pressure: 88/71 Pulse: 58 Respirations: 16 Pulse Ox (%): 99 - Studies Microbiology Data (last 24 hrs): 10/27/21 03:55 Blood - Blood Aerobic Blood Culture - Final Staphylococcus Lugdunensis 10/27/21 03:55 Blood - Blood Blood Culture Gram Stain - Final 10/27/21 03:55 Blood - Blood Anaerobic Blood Culture - Final 10/27/21 04:15 Catheterized Urine [place] Count - Final >100,000 CFU/ML. 10/27/21 04:15 Catheterized Urine - Final Escherichia Coli Medications List Reviewed: Yes Assessment And Plan Physician Review: Patient Assessed, Agree with Above Assessment and Plan Physician Review Additional Text: 10/29/21 12:31 - Physical Exam General: Alert, In no apparent distress, Oriented x3, on nasal cannula O2 HEENT: Atraumatic, PERRLA, EOMI Neck: Supple, JVD not distended Respiratory: Diminished, good air entry, no wheeze Cardiovascular: Regular rate/rhythm, Normal S1 S2, No murmurs Gastrointestinal: Normal bowel sounds, Soft and benign, Non-distended, No tenderness Musculoskeletal: No clubbing, No swelling, No tenderness Neurological: Sensation intact, Cranial nerves 3-12 intact - Studies Blood culture from 10/29/21no growth to date Blood culture from 10/25/21E. coli in 1 bottle and staph lugdunesis in another bottle Urine culture from 2E. coli Medications List Reviewed: Yes Assessment & Plan - Problems (Diagnosis) (1) AMS (altered mental status) Current Visit: Yes Status: Acute (2) Acute on chronic renal failure Current Visit: No Status: Acute Qualifiers: (3) Atrial fibrillation Onset Date: 08/14/17 Current Visit: No Status: Acute Qualifiers: (4) COPD (chronic obstructive pulmonary disease) Onset Date: 08/14/17 Current Visit: No Status: Acute Qualifiers: (5) History of pulmonary embolism Current Visit: No Status: Acute (6) CHF (congestive heart failure) Current Visit: No Status: Chronic Qualifiers: (7) Obesity Current Visit: No Status: Chronic Qualifiers: (8) Hypokalemia Current Visit: Yes Status: Acute (9) Metabolic alkalosis Current Visit: Yes Status: Acute - Plan Bacteremiawith Mixed bacteremia Continue cefepime and Vanco Will need antibiotics for at least 14 days Likely due to to UTI with E. coli and staph from sacral decubitus EchoTTEshows normal EF with normal-appearing valves Septic shockstable, continue midodrine, continue to hold off metoprolol Heart rate remained controlled A. fib -is rate controlled now Hold off metoprolol for now since hypotension Since no plan for intervention, DC Eliquis, start Coumadin with Lovenox bridge UTIwith E. coli, continue cefepime, can switch to p.o. Levaquin Obesityweight loss advised Sacral rashlikely dermatitis with pressure sacral decubitus ulcer Continue offloading Apply topical cream to area Metabolic encephalopathyresolved Astheniacontinue PT/OT Dispositionstatus post placed PICC line, unable to be accepted at [facility] due to indigent status Might need hospital stay for antibiotics course Time Spent Managing PTS Care (In Minutes): 35
[2021-10-30] MEDS: ATORVASTATIN 40 MG TAB PO SCH (20:28)
[2021-10-30] MEDS: VANCOMYCIN 2 GM in NA CHLORIDE 0.9% 500 ML IVPB SCH (23:44)
[2021-10-31 03:47] LABS: Absolute Lymphocytes (CBC) 0.6 K/uL (0.7-4.9); Hematocrit 40.2 % (36.0-45.0); Lymphocytes % 14.2 % (15.3-44.8); MPV 9.1 fL (7.6-11.3); RBC Red Blood Cell Count 3.78 M/uL (3.86-4.86)
[2021-10-31 03:52] LABS: MCV 106.4 fL (80-100)
[2021-10-31 04:02] LABS: Potassium 3.8 mmol/L (3.5-5.1)
[2021-10-31] MEDS: INSULIN -REGULAR HUMAN 50 UNIT/0.5 ML ML SQ SCH ×4 (07:30→21:00)
[2021-10-31] MEDS: CEFEPIME 1 GM in NA CHLORIDE 0.9% 100 ML IV SCH ×2 (08:31→22:41)
[2021-10-31] MEDS: POTASSIUM CL SA 10 MEQ TAB PO SCH ×2 (08:32→23:25)
[2021-10-31] MEDS: APIXABAN 5 MG TABLET PO SCH ×2 (08:32→22:43)
[2021-10-31] MEDS: BUPROPRION HCL S.R. 150MG TAB PO SCH ×2 (08:32→22:41)
[2021-10-31] MEDS: ASPIRIN EC 81 MG TAB PO SCH (08:32)
[2021-10-31] MEDS: GABAPENTIN 300 MG CAP PO SCH ×2 (08:33→22:42)
[2021-10-31] MEDS: FUROSEMIDE 20 MG TABLET PO SCH (08:33)
[2021-10-31] MEDS: MIDODRINE HCL 5 MG TABLET PO SCH ×3 (08:35→22:42)
--- NOTE | 2021-10-31 13:24 | P.PN ---
Subjective Date of Service: 10/31/21 Chief Complaint: Altered mental status Patient seen and examined at bedside, transferred from ICU down to medical floor. Review of Systems 10-point ROS is otherwise unremarkable Physical Examination - Vital Signs Temperature: 96.8 F Blood Pressure: 100/57 Pulse: 57 Respirations: 20 Pulse Ox (%): 98 - Studies Laboratory Last Values WBC 7.3 K/uL (4.3-10.9) 10/27/21 03:55 RBC 4.90 M/uL (3.86-4.86) H 10/27/21 03:55 Hgb 17.1 g/dL (12.0-15.0) H 10/27/21 03:55 Hct 52.2 % (36.0-45.0) H 10/27/21 03:55 MCV 106.6 fL (80-100) H 10/27/21 03:55 MCH 35.0 pg (27.0-35.0) 10/27/21 03:55 MCHC 32.8 g/dL (32.0-36.0) 10/27/21 03:55 RDW 15.3 % (12.1-15.2) H 10/27/21 03:55 Plt Count 190 K/uL (152-406) 10/27/21 03:55 MPV 9.9 fL (7.6-11.3) 10/27/21 03:55 Neutrophils % 83.4 % (41.7-73.7) H 10/27/21 03:55 Lymphocytes % 8.1 % (15.3-44.8) L 10/27/21 03:55 Monocytes % 6.6 % (3.3-12.3) 10/27/21 03:55 Eosinophils % 1.7 % (0-4.4) 10/27/21 03:55 Basophils % 0.2 % (0-1.3) 10/27/21 03:55 Absolute Neutrophils 6.1 K/uL (1.8-8.0) 10/27/21 03:55 Absolute Lymphocytes 0.6 K/uL (0.7-4.9) L 10/27/21 03:55 Absolute Monocytes 0.5 K/uL (0.1-1.3) 10/27/21 03:55 Absolute Eosinophils 0.1 K/uL (0-0.5) 10/27/21 03:55 Absolute Basophils 0.0 K/uL (0-0.5) 10/27/21 03:55 Platelet Estimate Adeq 10/27/21 03:55 Clumped Platelets Few 10/27/21 03:55 Macrocytosis 2+ 10/27/21 03:55 Ovalocytes 1+ 10/27/21 03:55 Morphology Comment Noted (NOT SEEN) 10/27/21 03:55 PT 12.6 SECONDS (9.5-12.5) H 10/27/21 03:55 INR 1.14 10/27/21 03:55 APTT 28.6 SECONDS (24.3-36.9) 10/27/21 03:55 pH 7.37 (7.35-7.45) 10/27/21 06:43 pCO2 60.6 mmHG (35-45) H 10/27/21 06:43 pO2 89.2 mmHG (75-100) 10/27/21 06:43 HCO3 33.9 mmol/L (22-28) H 10/27/21 06:43 Base Excess 8.5 mmol/L 10/27/21 06:43 Oxyhemoglobin 92.2 % (94-97) L 10/27/21 06:43 ABG O2 Sat (Measured) 95.3 % (92-98.5) 10/27/21 06:43 ABG Carboxyhemoglobin 2.1 % (0-1.5) H 10/27/21 06:43 ABG Methemoglobin 1.2 % (0-1.5) 10/27/21 06:43 Other Total Hgb 15.3 g/dl (12-18) 10/27/21 06:43 Inspired O2 36.0 % 10/27/21 06:43 Sodium 140 mmol/L (136-145) 10/27/21 03:55 Potassium 2.7 mmol/L (3.5-5.1) L* 10/27/21 03:55 Chloride 95 mmol/L (98-107) L 10/27/21 03:55 Carbon Dioxide 38 mmol/L (21-32) H 10/27/21 03:55 Anion Gap 9.7 mEq/L (5.0-15.0) 10/27/21 03:55 BUN 30 mg/dL (7-18) H 10/27/21 03:55 Creatinine 1.40 mg/dL (0.55-1.3) H 10/27/21 03:55 Est GFR (CKD-EPI) 46 ml/min (=/>90) L 10/27/21 03:55 Glucose 137 mg/dL (74-106) H 10/27/21 03:55 POC Glucose 139 mg/dL (65-120) H 10/27/21 06:43 Lactic Acid 1.8 mmol/L (0.4-2.0) 10/27/21 02:41 Calcium 10.3 mg/dL (8.5-10.1) H 10/27/21 03:55 Total Bilirubin 0.6 mg/dL (0.2-1.0) 10/27/21 03:55 AST 83 U/L (15-37) H 10/27/21 03:55 ALT 58 U/L (12-78) 10/27/21 03:55 Alkaline Phosphatase 93 U/L (45-117) 10/27/21 03:55 Creatine Kinase 172 U/L (26-192) 10/27/21 03:55 NT-Pro-B Natriuret Pep 140 pg/mL (<125) H 10/27/21 03:55 Serum Total Protein 7.8 g/dL (6.4-8.2) 10/27/21 03:55 Albumin 3.3 g/dL (3.4-5.0) L 10/27/21 03:55 Globulin 4.5 g/dL (2.3-3.5) H 10/27/21 03:55 Albumin/Globulin Ratio 0.7 (1.1-1.8) L 10/27/21 03:55 Urine pH 6.0 (5.0-7.0) 10/27/21 04:17 Ur Specific [place] 1.020 (1.005-1.030) 10/27/21 04:17 Glucose (UA)(Auto) Negative (Negative) 10/27/21 04:17 Urine Ketones Negative (Negative) 10/27/21 04:17 Urine Blood Negative (Negative) 10/27/21 04:17 Urine Nitrite Positive (Negative) H 10/27/21 04:17 Ur Leukocyte Esterase Negative (Negative) 10/27/21 04:17 Urine RBC <5 /HPF (NONE SEEN) 10/27/21 04:15 Urine WBC 5-10 /HPF (<5) H 10/27/21 04:15 Ur Squamous Epith Cells <5 /HPF (NONE SEEN) 10/27/21 04:15 Urine Bacteria Loaded /HPF (<20) H 10/27/21 04:15 Urine Mucus 2+ /HPF (NONE SEEN) 10/27/21 04:15 Urine Culture Reflexed Not needed 10/27/21 04:15 Urine Total Protein Negative (Negative) 10/27/21 04:17 SARS-CoV-2 Rap RNA(RT-PCR) Negative (NEGATIVE) 10/27/21 05:33 Smear Scan Ok (OK) 10/27/21 03:55 Microbiology Data (last 24 hrs): 10/27/21 02:41 Blood - Blood Aerobic Blood Culture - Final 10/27/21 02:41 Blood - Blood Blood Culture Gram Stain - Final 10/27/21 02:41 Blood - Blood Anaerobic Blood Culture - Final Medications List Reviewed: Yes Assessment And Plan - Plan Physical exam: General: Alert, Oriented x3, Obese HEENT: Atraumatic Neck: Supple Respiratory: Clear to auscultation bilaterally, Normal air movement Cardiovascular: Other (Difficult auscultating secondary to body habitus) Capillary refill: <2 Seconds Gastrointestinal: Normal bowel sounds, Soft and benign Musculoskeletal: No clubbing, No swelling, No contractures, No erythema Integumentary: No rashes, No breakdown, Other (Bilateral buttocks wound, minimal tissue breakdown with flaky skin) Urinary: Other (Pure wick) External genitalia: Other (Genital warts) Conclusions/Impression: Antibiotics: Vancomycin: 10/28current Cefepime: 10/28current Gram-positive bacteremia Blood cultures obtained on 10/27 grew Staph lugdunesis in both aerobic bottles, repeat cultures obtained on 10/30 showed no growth. Susceptible only to vancomycin, recommend continuing this antibiotics for 2 weeks following negative blood culture report. Source of infection unclear, transthoracic echocardiogram negative for acute vegetation, panCT normal. Patient does have rash/wound on bilateral buttocks which could be source of infection however is still unclear. Patient also has multiple dental carriers, this bacteria is known to be a potential pathogen in oral infections. Recommend transesophageal echocardiogram. Urinary tract infection Urine culture obtained on 10/27 grew E. coli, pansensitive. Recommend de-escalating IV cefepime to oral Augmentin Morbid obesity, diabetes, COPD, CHF -Medical management per primary team Plan of care discussed with Dr. Garrett Thank you for consultation Physician Review: Patient Assessed, Agree with Above Assessment and Plan
--- NOTE | 2021-10-31 14:25 | P.PN ---
Subjective Date of Service: 10/31/21 Chief Complaint: Altered mental status Subjective: No new changes, Improving Physical Examination - Vital Signs Temperature: 96.8 F Blood Pressure: 100/57 Pulse: 57 Respirations: 20 Pulse Ox (%): 98 - Studies Microbiology Data (last 24 hrs): 10/27/21 02:41 Blood - Blood Aerobic Blood Culture - Final 10/27/21 02:41 Blood - Blood Blood Culture Gram Stain - Final 10/27/21 02:41 Blood - Blood Anaerobic Blood Culture - Final Medications List Reviewed: Yes Assessment And Plan Physician Review: Patient Assessed, Agree with Above Assessment and Plan Physician Review Additional Text: 10/29/21 12:31 - Physical Exam General: Alert, In no apparent distress, Oriented x3, on nasal cannula O2 HEENT: Atraumatic, PERRLA, EOMI Neck: Supple, JVD not distended Respiratory: Diminished, good air entry, no wheeze Cardiovascular: Regular rate/rhythm, Normal S1 S2, No murmurs Gastrointestinal: Normal bowel sounds, Soft and benign, Non-distended, No tenderness Musculoskeletal: No clubbing, No swelling, No tenderness Neurological: Sensation intact, Cranial nerves 3-12 intact - Studies Blood culture from 10/29/21no growth to date Blood culture from 10/25/21E. coli in 1 bottle and staph lugdunesis in another bottle Urine culture from 2E. coli Medications List Reviewed: Yes Assessment & Plan - Problems (Diagnosis) (1) AMS (altered mental status) Current Visit: Yes Status: Acute (2) Acute on chronic renal failure Current Visit: No Status: Acute Qualifiers: (3) Atrial fibrillation Onset Date: 08/14/17 Current Visit: No Status: Acute Qualifiers: (4) COPD (chronic obstructive pulmonary disease) Onset Date: 08/14/17 Current Visit: No Status: Acute Qualifiers: (5) History of pulmonary embolism Current Visit: No Status: Acute (6) CHF (congestive heart failure) Current Visit: No Status: Chronic Qualifiers: (7) Obesity Current Visit: No Status: Chronic Qualifiers: (8) Hypokalemia Current Visit: Yes Status: Acute (9) Metabolic alkalosis Current Visit: Yes Status: Acute - Plan Bacteremiawith Mixed bacteremia in both culture bottles and different specimen in urine Worry about contamination of the culture bottles Continue cefepime and Vanco Will need antibiotics for at least 14 days Likely due to to UTI with E. coli and staph from sacral decubitus EchoTTEshows normal EF with normal-appearing valves Septic shockstable, continue midodrine, continue to hold off metoprolol Heart rate remained controlled A. fib -is rate controlled now Hold off metoprolol for now since hypotension Since no plan for intervention, DC Eliquis, start Coumadin with Lovenox bridge UTIwith E. coli, continue cefepime, can switch to p.o. Levaquin Obesityweight loss advised Sacral rashlikely dermatitis with pressure sacral decubitus ulcer Continue offloading Apply topical cream to area Metabolic encephalopathyresolved Astheniacontinue PT/OT Dispositionstatus post placed PICC line, unable to be accepted at SNF due to indigent status Might need hospital stay for antibiotics course 10/31/21 14:25
[2021-10-31] MEDS: ATORVASTATIN 40 MG TAB PO SCH (22:42)
[2021-11-01 06:13] LABS: Absolute Lymphocytes (CBC) 0.5 K/uL (0.7-4.9); Hematocrit 42.6 % (36.0-45.0); Lymphocytes % 15.1 % (15.3-44.8); MCV 107.6 fL (80-100); MPV 8.8 fL (7.6-11.3); RBC Red Blood Cell Count 3.96 M/uL (3.86-4.86)
[2021-11-01 06:34] LABS: Potassium 4.3 mmol/L (3.5-5.1)
[2021-11-01] MEDS: INSULIN -REGULAR HUMAN 50 UNIT/0.5 ML ML SQ SCH ×4 (07:30→20:38)
[2021-11-01] MEDS: CEFEPIME 1 GM in NA CHLORIDE 0.9% 100 ML IV SCH ×2 (08:00→20:38)
[2021-11-01] MEDS: BUPROPRION HCL S.R. 150MG TAB PO SCH ×2 (08:00→20:37)
[2021-11-01] MEDS: ASPIRIN EC 81 MG TAB PO SCH (08:01)
[2021-11-01] MEDS: APIXABAN 5 MG TABLET PO SCH ×2 (08:01→20:38)
[2021-11-01] MEDS: GABAPENTIN 300 MG CAP PO SCH ×2 (08:01→20:38)
[2021-11-01] MEDS: POTASSIUM CL SA 10 MEQ TAB PO SCH ×2 (08:01→20:37)
[2021-11-01] MEDS: MIDODRINE HCL 5 MG TABLET PO SCH ×3 (08:01→20:38)
[2021-11-01] MEDS: FUROSEMIDE 20 MG TABLET PO SCH (08:04)
[2021-11-01] MEDS ORDERED: VANCOMYCIN 2 GM in NA CHLORIDE 0.9% 500 ML IVPB SCH (09:00)
[2021-11-01] MEDS: ALPRAZOLAM 0.5 MG TABLET PO SCH ×2 (11:21→20:37)
--- NOTE | 2021-11-01 13:06 | P.PN ---
Subjective Date of Service: 11/01/21 Chief Complaint: Altered mental status Subjective: No new changes, Improving Physical Examination - Vital Signs Temperature: 97.5 F Blood Pressure: 93/64 Pulse: 68 Respirations: 20 Pulse Ox (%): 95 - Studies Medications List Reviewed: Yes Assessment And Plan Physician Review: Patient Assessed, Agree with Above Assessment and Plan Physician Review Additional Text: - Physical Exam General: Alert, In no apparent distress, Oriented x3, on room air HEENT: Atraumatic, PERRLA, EOMI Neck: Supple, JVD not distended Respiratory: Diminished, good air entry, no wheeze Cardiovascular: Regular rate/rhythm, Normal S1 S2, No murmurs Gastrointestinal: Normal bowel sounds, Soft and benign, Non-distended, No tenderness Musculoskeletal: No clubbing, No swelling, No tenderness Neurological: Sensation intact, Cranial nerves 3-12 intact - Studies Blood culture from 10/29/21no growth to date Blood culture from 10/25/21 Baccilus species in 1 bottle and staph lugdunesis in another bottle Urine culture from 2E. coli Medications List Reviewed: Yes Assessment & Plan - Problems (Diagnosis) (1) AMS (altered mental status) Current Visit: Yes Status: Acute (2) Acute on chronic renal failure Current Visit: No Status: Acute Qualifiers: (3) Atrial fibrillation Onset Date: 08/14/17 Current Visit: No Status: Acute Qualifiers: (4) COPD (chronic obstructive pulmonary disease) Onset Date: 08/14/17 Current Visit: No Status: Acute Qualifiers: (5) History of pulmonary embolism Current Visit: No Status: Acute (6) CHF (congestive heart failure) Current Visit: No Status: Chronic Qualifiers: (7) Obesity Current Visit: No Status: Chronic Qualifiers: (8) Hypokalemia Current Visit: Yes Status: Acute (9) Metabolic alkalosis Current Visit: Yes Status: Acute - Plan Bacteremiawith Mixed bacteremia in both culture bottles -still suspect contamination Continue Vanco for the staph ludgenesis - need antibiotics for at least 14 days- day 5 now Unable to get placement for IV antibiotics, will need to stay in hospital until completing course Likely due to to UTI with E. coli and staph from sacral decubitus EchoTTEshows normal EF with normal-appearing valves Septic shockimproving, continue midodrine, continue to hold off metoprolol Heart rate remained controlled A. fib -is rate controlled now Hold off metoprolol for now since hypotension Since no plan for intervention, DC Eliquis, start Coumadin with Lovenox bridge UTIwith E. coli, on Levaquin Obesityweight loss advised Sacral rashlikely dermatitis with pressure sacral decubitus ulcer Continue offloading Metabolic encephalopathyresolved Astheniacontinue PT/OT Dispositionstatus post placed PICC line, unable to be accepted at SNF due to indigent status 11/01/21 13:02 11/01/21 13:05
--- NOTE | 2021-11-01 14:20 | P.PN ---
Subjective Date of Service: 11/01/21 Chief Complaint: Altered mental status Patient seen and examined at bedside, leukopenia present on today's lab. Thrombocytopenia slightly improving, may want to consider hematology consultation. Review of Systems 10-point ROS is otherwise unremarkable Physical Examination - Vital Signs Temperature: 97.5 F Blood Pressure: 93/64 Pulse: 68 Respirations: 20 Pulse Ox (%): 95 - Studies Laboratory Last Values WBC 7.3 K/uL (4.3-10.9) 10/27/21 03:55 RBC 4.90 M/uL (3.86-4.86) H 10/27/21 03:55 Hgb 17.1 g/dL (12.0-15.0) H 10/27/21 03:55 Hct 52.2 % (36.0-45.0) H 10/27/21 03:55 MCV 106.6 fL (80-100) H 10/27/21 03:55 MCH 35.0 pg (27.0-35.0) 10/27/21 03:55 MCHC 32.8 g/dL (32.0-36.0) 10/27/21 03:55 RDW 15.3 % (12.1-15.2) H 10/27/21 03:55 Plt Count 190 K/uL (152-406) 10/27/21 03:55 MPV 9.9 fL (7.6-11.3) 10/27/21 03:55 Neutrophils % 83.4 % (41.7-73.7) H 10/27/21 03:55 Lymphocytes % 8.1 % (15.3-44.8) L 10/27/21 03:55 Monocytes % 6.6 % (3.3-12.3) 10/27/21 03:55 Eosinophils % 1.7 % (0-4.4) 10/27/21 03:55 Basophils % 0.2 % (0-1.3) 10/27/21 03:55 Absolute Neutrophils 6.1 K/uL (1.8-8.0) 10/27/21 03:55 Absolute Lymphocytes 0.6 K/uL (0.7-4.9) L 10/27/21 03:55 Absolute Monocytes 0.5 K/uL (0.1-1.3) 10/27/21 03:55 Absolute Eosinophils 0.1 K/uL (0-0.5) 10/27/21 03:55 Absolute Basophils 0.0 K/uL (0-0.5) 10/27/21 03:55 Platelet Estimate Adeq 10/27/21 03:55 Clumped Platelets Few 10/27/21 03:55 Macrocytosis 2+ 10/27/21 03:55 Ovalocytes 1+ 10/27/21 03:55 Morphology Comment Noted (NOT SEEN) 10/27/21 03:55 PT 12.6 SECONDS (9.5-12.5) H 10/27/21 03:55 INR 1.14 10/27/21 03:55 APTT 28.6 SECONDS (24.3-36.9) 10/27/21 03:55 pH 7.37 (7.35-7.45) 10/27/21 06:43 pCO2 60.6 mmHG (35-45) H 10/27/21 06:43 pO2 89.2 mmHG (75-100) 10/27/21 06:43 HCO3 33.9 mmol/L (22-28) H 10/27/21 06:43 Base Excess 8.5 mmol/L 10/27/21 06:43 Oxyhemoglobin 92.2 % (94-97) L 10/27/21 06:43 ABG O2 Sat (Measured) 95.3 % (92-98.5) 10/27/21 06:43 ABG Carboxyhemoglobin 2.1 % (0-1.5) H 10/27/21 06:43 ABG Methemoglobin 1.2 % (0-1.5) 10/27/21 06:43 Other Total Hgb 15.3 g/dl (12-18) 10/27/21 06:43 Inspired O2 36.0 % 10/27/21 06:43 Sodium 140 mmol/L (136-145) 10/27/21 03:55 Potassium 2.7 mmol/L (3.5-5.1) L* 10/27/21 03:55 Chloride 95 mmol/L (98-107) L 10/27/21 03:55 Carbon Dioxide 38 mmol/L (21-32) H 10/27/21 03:55 Anion Gap 9.7 mEq/L (5.0-15.0) 10/27/21 03:55 BUN 30 mg/dL (7-18) H 10/27/21 03:55 Creatinine 1.40 mg/dL (0.55-1.3) H 10/27/21 03:55 Est GFR (CKD-EPI) 46 ml/min (=/>90) L 10/27/21 03:55 Glucose 137 mg/dL (74-106) H 10/27/21 03:55 POC Glucose 139 mg/dL (65-120) H 10/27/21 06:43 Lactic Acid 1.8 mmol/L (0.4-2.0) 10/27/21 02:41 Calcium 10.3 mg/dL (8.5-10.1) H 10/27/21 03:55 Total Bilirubin 0.6 mg/dL (0.2-1.0) 10/27/21 03:55 AST 83 U/L (15-37) H 10/27/21 03:55 ALT 58 U/L (12-78) 10/27/21 03:55 Alkaline Phosphatase 93 U/L (45-117) 10/27/21 03:55 Creatine Kinase 172 U/L (26-192) 10/27/21 03:55 NT-Pro-B Natriuret Pep 140 pg/mL (<125) H 10/27/21 03:55 Serum Total Protein 7.8 g/dL (6.4-8.2) 10/27/21 03:55 Albumin 3.3 g/dL (3.4-5.0) L 10/27/21 03:55 Globulin 4.5 g/dL (2.3-3.5) H 10/27/21 03:55 Albumin/Globulin Ratio 0.7 (1.1-1.8) L 10/27/21 03:55 Urine pH 6.0 (5.0-7.0) 10/27/21 04:17 Ur Specific [place] 1.020 (1.005-1.030) 10/27/21 04:17 Glucose (UA)(Auto) Negative (Negative) 10/27/21 04:17 Urine Ketones Negative (Negative) 10/27/21 04:17 Urine Blood Negative (Negative) 10/27/21 04:17 Urine Nitrite Positive (Negative) H 10/27/21 04:17 Ur Leukocyte Esterase Negative (Negative) 10/27/21 04:17 Urine RBC <5 /HPF (NONE SEEN) 10/27/21 04:15 Urine WBC 5-10 /HPF (<5) H 10/27/21 04:15 Ur Squamous Epith Cells <5 /HPF (NONE SEEN) 10/27/21 04:15 Urine Bacteria Loaded /HPF (<20) H 10/27/21 04:15 Urine Mucus 2+ /HPF (NONE SEEN) 10/27/21 04:15 Urine Culture Reflexed Not needed 10/27/21 04:15 Urine Total Protein Negative (Negative) 10/27/21 04:17 SARS-CoV-2 Rap RNA(RT-PCR) Negative (NEGATIVE) 10/27/21 05:33 Smear Scan Ok (OK) 10/27/21 03:55 Medications List Reviewed: Yes Assessment And Plan - Plan Physical exam: General: Alert, Oriented x3, Obese HEENT: Atraumatic Neck: Supple Respiratory: Clear to auscultation bilaterally, Normal air movement Cardiovascular: Other (Difficult auscultating secondary to body habitus) Capillary refill: <2 Seconds Gastrointestinal: Normal bowel sounds, Soft and benign Musculoskeletal: No clubbing, No swelling, No contractures, No erythema Integumentary: No rashes, No breakdown, Other (Bilateral buttocks wound, minimal tissue breakdown with flaky skin) Urinary: Other (Pure wick) External genitalia: Other (Genital warts) Conclusions/Impression: Antibiotics: Vancomycin: 10/28current Cefepime: 10/28current Gram-positive bacteremia Blood cultures obtained on 10/27 grew Staph lugdunesis in both aerobic bottles, repeat cultures obtained on 10/30 showed no growth. Susceptible only to vancomycin, recommend continuing this antibiotics for 2 weeks following negative blood culture report. Source of infection unclear, transthoracic echocardiogram negative for acute vegetation, panCT normal. Patient does have rash/wound on bilateral buttocks which could be source of infection however is still unclear. Patient also has multiple dental carriers, this bacteria is known to be a potential pathogen in oral infections. Recommend transesophageal echocardiogram. Urinary tract infection Urine culture obtained on 10/27 grew E. coli, pansensitive. Recommend de-escalating IV cefepime to oral Augmentin Morbid obesity, diabetes, COPD, CHF -Medical management per primary team Plan of care discussed with Dr. Garrett Thank you for consultation Physician Review: Patient Assessed, Agree with Above Assessment and Plan
[2021-11-01] MEDS: ATORVASTATIN 40 MG TAB PO SCH (20:38)
[2021-11-02 05:56] LABS: Absolute Lymphocytes (CBC) 0.6 K/uL (0.7-4.9); Hematocrit 43.1 % (36.0-45.0); Lymphocytes % 19.8 % (15.3-44.8); MPV 9.1 fL (7.6-11.3); RBC Red Blood Cell Count 3.98 M/uL (3.86-4.86)
[2021-11-02 06:04] LABS: MCV 108.1 fL (80-100)
[2021-11-02 06:08] LABS: Potassium 4.5 mmol/L (3.5-5.1)
[2021-11-02] MEDS: INSULIN -REGULAR HUMAN 50 UNIT/0.5 ML ML SQ SCH ×4 (07:30→20:25)
[2021-11-02] MEDS: CEFEPIME 1 GM in NA CHLORIDE 0.9% 100 ML IV SCH ×2 (08:31→20:23)
[2021-11-02] MEDS: BUPROPRION HCL S.R. 150MG TAB PO SCH ×2 (08:31→20:24)
[2021-11-02] MEDS: ASPIRIN EC 81 MG TAB PO SCH (08:31)
[2021-11-02] MEDS: FUROSEMIDE 20 MG TABLET PO SCH (08:32)
[2021-11-02] MEDS: POTASSIUM CL SA 10 MEQ TAB PO SCH ×2 (08:32→20:24)
[2021-11-02] MEDS: GABAPENTIN 300 MG CAP PO SCH ×2 (08:32→20:24)
[2021-11-02] MEDS: APIXABAN 5 MG TABLET PO SCH ×2 (08:32→20:24)
[2021-11-02] MEDS: MIDODRINE HCL 5 MG TABLET PO SCH ×3 (08:36→20:23)
[2021-11-02] MEDS: ALPRAZOLAM 0.5 MG TABLET PO SCH ×2 (08:45→20:23)
[2021-11-02] MEDS: VANCOMYCIN 1.75 GM in NA CHLORIDE 0.9% 500 ML IVPB SCH (09:12)
[2021-11-02] MEDS ORDERED: ALPRAZOLAM 1 MG TABLET PO SCH (11:00)
--- NOTE | 2021-11-02 12:42 | P.PN ---
Subjective Date of Service: 11/02/21 Chief Complaint: Altered mental status Subjective: No new changes Physical Examination - Vital Signs Temperature: 97.3 F Blood Pressure: 105/60 Pulse: 57 Respirations: 20 Pulse Ox (%): 97 - Physical Exam General: Alert, In no apparent distress, Oriented x3 - Studies Medications List Reviewed: Yes Assessment And Plan Physician Review: Patient Assessed, Agree with Above Assessment and Plan Physician Review Additional Text: - Physical Exam General: Alert, In no apparent distress, Oriented x3, on room air HEENT: Atraumatic, PERRLA, EOMI Neck: Supple, JVD not distended Respiratory: Diminished, good air entry, no wheeze Cardiovascular: Regular rate/rhythm, Normal S1 S2, No murmurs Gastrointestinal: Normal bowel sounds, Soft and benign, Non-distended, No tenderness Musculoskeletal: No clubbing, No swelling, No tenderness Neurological: Sensation intact, Cranial nerves 3-12 intact Studies Blood culture from 10/29/21no growth to date Blood culture from 10/25/21 Baccilus species in 1 bottle and staph lugdunesis in another bottle Urine culture from 2E. coli Medications List Reviewed: Yes Assessment & Plan - Problems (Diagnosis) (1) AMS (altered mental status) Current Visit: Yes Status: Acute (2) Acute on chronic renal failure Current Visit: No Status: Acute Qualifiers: (3) Atrial fibrillation Onset Date: 08/14/17 Current Visit: No Status: Acute Qualifiers: (4) COPD (chronic obstructive pulmonary disease) Onset Date: 08/14/17 Current Visit: No Status: Acute Qualifiers: (5) History of pulmonary embolism Current Visit: No Status: Acute (6) CHF (congestive heart failure) Current Visit: No Status: Chronic Qualifiers: (7) Obesity Current Visit: No Status: Chronic Qualifiers: (8) Hypokalemia Current Visit: Yes Status: Acute (9) Metabolic alkalosis Current Visit: Yes Status: Acute Plan Bacteremiawith mixed bacteremia in both culture bottles - suspect contamination Continue Vanco for the staph ludgenesis Need antibiotics for at least 14 days- day 5 now Unable to get placement for IV antibiotics, will need to stay in hospital until completing course Likely due to to UTI with E. coli and staph from sacral decubitus EchoTTEshows normal EF with normal-appearing valves Septic shockimproving, continue midodrine, continue to hold off metoprolol Heart rate remained controlled A. fib -is rate controlled now Hold off metoprolol for now since hypotension Since no plan for intervention, DC Veronica, start Coumadin with Lovenox bridge UTIwith E. coli, on Levaquin Obesityweight loss advised Sacral rashlikely dermatitis with pressure sacral decubitus ulcer Continue offloading Metabolic encephalopathyresolved Astheniacontinue PT/OT Dispositionstatus post placed PICC line, unable to be accepted at SNF due to indigent status Time Spent Managing PTS Care (In Minutes): 35
--- NOTE | 2021-11-02 12:50 | P.PN ---
Subjective Date of Service: 11/02/21 Chief Complaint: Altered mental status Patient seen and examined at bedside, no acute complaints. Review of Systems 10-point ROS is otherwise unremarkable Physical Examination - Vital Signs Temperature: 97.3 F Blood Pressure: 105/60 Pulse: 57 Respirations: 20 Pulse Ox (%): 97 - Studies Laboratory Last Values WBC 7.3 K/uL (4.3-10.9) 10/27/21 03:55 RBC 4.90 M/uL (3.86-4.86) H 10/27/21 03:55 Hgb 17.1 g/dL (12.0-15.0) H 10/27/21 03:55 Hct 52.2 % (36.0-45.0) H 10/27/21 03:55 MCV 106.6 fL (80-100) H 10/27/21 03:55 MCH 35.0 pg (27.0-35.0) 10/27/21 03:55 MCHC 32.8 g/dL (32.0-36.0) 10/27/21 03:55 RDW 15.3 % (12.1-15.2) H 10/27/21 03:55 Plt Count 190 K/uL (152-406) 10/27/21 03:55 MPV 9.9 fL (7.6-11.3) 10/27/21 03:55 Neutrophils % 83.4 % (41.7-73.7) H 10/27/21 03:55 Lymphocytes % 8.1 % (15.3-44.8) L 10/27/21 03:55 Monocytes % 6.6 % (3.3-12.3) 10/27/21 03:55 Eosinophils % 1.7 % (0-4.4) 10/27/21 03:55 Basophils % 0.2 % (0-1.3) 10/27/21 03:55 Absolute Neutrophils 6.1 K/uL (1.8-8.0) 10/27/21 03:55 Absolute Lymphocytes 0.6 K/uL (0.7-4.9) L 10/27/21 03:55 Absolute Monocytes 0.5 K/uL (0.1-1.3) 10/27/21 03:55 Absolute Eosinophils 0.1 K/uL (0-0.5) 10/27/21 03:55 Absolute Basophils 0.0 K/uL (0-0.5) 10/27/21 03:55 Platelet Estimate Adeq 10/27/21 03:55 Clumped Platelets Few 10/27/21 03:55 Macrocytosis 2+ 10/27/21 03:55 Ovalocytes 1+ 10/27/21 03:55 Morphology Comment Noted (NOT SEEN) 10/27/21 03:55 PT 12.6 SECONDS (9.5-12.5) H 10/27/21 03:55 INR 1.14 10/27/21 03:55 APTT 28.6 SECONDS (24.3-36.9) 10/27/21 03:55 pH 7.37 (7.35-7.45) 10/27/21 06:43 pCO2 60.6 mmHG (35-45) H 10/27/21 06:43 pO2 89.2 mmHG (75-100) 10/27/21 06:43 HCO3 33.9 mmol/L (22-28) H 10/27/21 06:43 Base Excess 8.5 mmol/L 10/27/21 06:43 Oxyhemoglobin 92.2 % (94-97) L 10/27/21 06:43 ABG O2 Sat (Measured) 95.3 % (92-98.5) 10/27/21 06:43 ABG Carboxyhemoglobin 2.1 % (0-1.5) H 10/27/21 06:43 ABG Methemoglobin 1.2 % (0-1.5) 10/27/21 06:43 Other Total Hgb 15.3 g/dl (12-18) 10/27/21 06:43 Inspired O2 36.0 % 10/27/21 06:43 Sodium 140 mmol/L (136-145) 10/27/21 03:55 Potassium 2.7 mmol/L (3.5-5.1) L* 10/27/21 03:55 Chloride 95 mmol/L (98-107) L 10/27/21 03:55 Carbon Dioxide 38 mmol/L (21-32) H 10/27/21 03:55 Anion Gap 9.7 mEq/L (5.0-15.0) 10/27/21 03:55 BUN 30 mg/dL (7-18) H 10/27/21 03:55 Creatinine 1.40 mg/dL (0.55-1.3) H 10/27/21 03:55 Est GFR (CKD-EPI) 46 ml/min (=/>90) L 10/27/21 03:55 Glucose 137 mg/dL (74-106) H 10/27/21 03:55 POC Glucose 139 mg/dL (65-120) H 10/27/21 06:43 Lactic Acid 1.8 mmol/L (0.4-2.0) 10/27/21 02:41 Calcium 10.3 mg/dL (8.5-10.1) H 10/27/21 03:55 Total Bilirubin 0.6 mg/dL (0.2-1.0) 10/27/21 03:55 AST 83 U/L (15-37) H 10/27/21 03:55 ALT 58 U/L (12-78) 10/27/21 03:55 Alkaline Phosphatase 93 U/L (45-117) 10/27/21 03:55 Creatine Kinase 172 U/L (26-192) 10/27/21 03:55 NT-Pro-B Natriuret Pep 140 pg/mL (<125) H 10/27/21 03:55 Serum Total Protein 7.8 g/dL (6.4-8.2) 10/27/21 03:55 Albumin 3.3 g/dL (3.4-5.0) L 10/27/21 03:55 Globulin 4.5 g/dL (2.3-3.5) H 10/27/21 03:55 Albumin/Globulin Ratio 0.7 (1.1-1.8) L 10/27/21 03:55 Urine pH 6.0 (5.0-7.0) 10/27/21 04:17 Ur Specific [place] 1.020 (1.005-1.030) 10/27/21 04:17 Glucose (UA)(Auto) Negative (Negative) 10/27/21 04:17 Urine Ketones Negative (Negative) 10/27/21 04:17 Urine Blood Negative (Negative) 10/27/21 04:17 Urine Nitrite Positive (Negative) H 10/27/21 04:17 Ur Leukocyte Esterase Negative (Negative) 10/27/21 04:17 Urine RBC <5 /HPF (NONE SEEN) 10/27/21 04:15 Urine WBC 5-10 /HPF (<5) H 10/27/21 04:15 Ur Squamous Epith Cells <5 /HPF (NONE SEEN) 10/27/21 04:15 Urine Bacteria Loaded /HPF (<20) H 10/27/21 04:15 Urine Mucus 2+ /HPF (NONE SEEN) 10/27/21 04:15 Urine Culture Reflexed Not needed 10/27/21 04:15 Urine Total Protein Negative (Negative) 10/27/21 04:17 SARS-CoV-2 Rap RNA(RT-PCR) Negative (NEGATIVE) 10/27/21 05:33 Smear Scan Ok (OK) 10/27/21 03:55 Medications List Reviewed: Yes Assessment And Plan - Plan Physical exam: General: Alert, Oriented x3, Obese HEENT: Atraumatic Neck: Supple Respiratory: Clear to auscultation bilaterally, Normal air movement Cardiovascular: Other (Difficult auscultating secondary to body habitus) Capillary refill: <2 Seconds Gastrointestinal: Normal bowel sounds, Soft and benign Musculoskeletal: No clubbing, No swelling, No contractures, No erythema Integumentary: No rashes, No breakdown, Other (Bilateral buttocks wound, minimal tissue breakdown with flaky skin) Urinary: Other (Pure wick) External genitalia: Other (Genital warts) Conclusions/Impression: Antibiotics: Vancomycin: 10/28current Cefepime: 10/28current Gram-positive bacteremia Blood cultures obtained on 10/27 grew Staph lugdunesis in both aerobic bottles, repeat cultures obtained on 10/30 showed no growth. Susceptible only to vancomycin, recommend continuing this antibiotics for 2 weeks following negative blood culture report. Source of infection unclear, transthoracic echocardiogram negative for acute vegetation, panCT normal. Patient does have rash/wound on bilateral buttocks which could be source of infection however is still unclear. Patient also has multiple dental carriers, this bacteria is known to be a potential pathogen in oral infections. Recommend transesophageal echocardiogram. Urinary tract infection Urine culture obtained on 10/27 grew E. coli, pansensitive. Recommend de-escalating IV cefepime to oral Augmentin Leukopenia/thrombocytopenia -Cause unknown, patient not on any medications with agranulocytosis side effects No history of immunosuppression No history of cancer/chemotherapy ANC within normal range Recommend hematology consultation Morbid obesity, diabetes, COPD, CHF -Medical management per primary team Plan of care discussed with Dr. Garrett Thank you for consultation Physician Review: Patient Assessed, Agree with Above Assessment and Plan
[2021-11-02] MEDS: NYSTATIN 100MU/GM CREAM 15GM TOP SCH ×2 (15:21→20:24)
[2021-11-02] MEDS: ATORVASTATIN 40 MG TAB PO SCH (20:23)
[2021-11-02] MEDS: ACETAMINOPHEN 500 MG TAB PO PRN (20:24)
[2021-11-03] MEDS: INSULIN -REGULAR HUMAN 50 UNIT/0.5 ML ML SQ SCH ×4 (07:30→21:00)
[2021-11-03] MEDS: VANCOMYCIN 1.75 GM in NA CHLORIDE 0.9% 500 ML IVPB SCH (09:00)
[2021-11-03] MEDS: CEFEPIME 1 GM in NA CHLORIDE 0.9% 100 ML IV SCH ×2 (09:25→20:55)
[2021-11-03] MEDS: BUPROPRION HCL S.R. 150MG TAB PO SCH ×2 (09:30→21:04)
[2021-11-03] MEDS: ALPRAZOLAM 0.5 MG TABLET PO SCH ×2 (09:31→21:00)
[2021-11-03] MEDS: FUROSEMIDE 20 MG TABLET PO SCH (09:31)
[2021-11-03] MEDS: ASPIRIN EC 81 MG TAB PO SCH ×2 (09:32→09:33)
[2021-11-03] MEDS: GABAPENTIN 300 MG CAP PO SCH ×2 (09:32→21:00)
[2021-11-03] MEDS: POTASSIUM CL SA 10 MEQ TAB PO SCH ×2 (09:32→20:55)
[2021-11-03] MEDS: MIDODRINE HCL 5 MG TABLET PO SCH ×3 (09:32→20:55)
[2021-11-03] MEDS: APIXABAN 5 MG TABLET PO SCH ×2 (09:33→20:55)
[2021-11-03] MEDS: NYSTATIN 100MU/GM CREAM 15GM TOP SCH ×2 (09:33→20:56)
[2021-11-03] MEDS: ACETAMINOPHEN 500 MG TAB PO PRN ×2 (10:12→18:26)
[2021-11-03] MEDS ORDERED: VANCOMYCIN 1.75 GM in NA CHLORIDE 0.9% 500 ML IVPB ONE (11:00)
--- NOTE | 2021-11-03 11:36 | P.PN ---
Subjective Date of Service: 11/04/21 Chief Complaint: Altered mental status Subjective: Improving she had episode of difficulty breathing today and had to have Heimlich maneuver done for releif. Regained consciousness and was stable after incident. Physical Examination - Vital Signs Temperature: 96.9 F Blood Pressure: 89/66 Pulse: 62 Respirations: 22 Pulse Ox (%): 96 - Physical Exam General: Alert, Acute distress HEENT: Atraumatic, Normocephalic Neck: Supple Respiratory: Normal air movement Cardiovascular: Regular rate/rhythm, Normal S1 S2 Gastrointestinal: Soft and benign Neurological: Normal speech - Studies Medications List Reviewed: Yes Assessment And Plan - Plan Assessment & Plan - Problems (Diagnosis) (1) AMS (altered mental status) Current Visit: Yes Status: Acute (2) Acute on chronic renal failure Current Visit: No Status: Acute Qualifiers: (3) Atrial fibrillation Onset Date: 08/14/17 Current Visit: No Status: Acute Qualifiers: (4) COPD (chronic obstructive pulmonary disease) Onset Date: 08/14/17 Current Visit: No Status: Acute Qualifiers: (5) History of pulmonary embolism Current Visit: No Status: Acute (6) CHF (congestive heart failure) Current Visit: No Status: Chronic Qualifiers: (7) Obesity Current Visit: No Status: Chronic Qualifiers: (8) Hypokalemia Current Visit: Yes Status: Acute (9) Metabolic alkalosis Current Visit: Yes Status: Acute Plan Bacteremiawith mixed bacteremia in both culture bottles - suspect contamination Continue Vanco for the staph ludgenesis Need antibiotics for at least 14 days- day 6 now Unable to get placement for IV antibiotics, will need to stay in hospital until completing course Likely due to to UTI with E. coli and staph from sacral decubitus EchoTTEshows normal EF with normal-appearing valves Septic shockimproving, continue midodrine, continue to hold off metoprolol Heart rate remained controlled A. fib -is rate controlled now Hold off metoprolol for now since hypotension Since no plan for intervention, DC Eliquis, start Coumadin with Lovenox bridge UTIwith E. coli, on Levaquin Obesityweight loss advised Sacral rashlikely dermatitis with pressure sacral decubitus ulcer Continue offloading Metabolic encephalopathyresolved Astheniacontinue PT/OT Dispositionstatus post placed PICC line, unable to be accepted at SNF due to indigent status. Time Spent Managing PTS Care (In Minutes): 35 Physician Review: Patient Assessed, Agree with Above Assessment and Plan
--- NOTE | 2021-11-03 15:03 | P.PN ---
Date of Service: 11/03/21 IT[employer]IAN TEACHER called overhead for patient. Upon my arrival, Patient appeared grayish/blue, unable to speak Patient was eating and began choking on something. RN was attempting heimlich maneuver without success. Body habitus made this difficult. Dr. Hurtado assisted from in front of patient, no success. Patient appeared more hypoxic /blue, starting to become less responsive. At this time, I got in position to perform Heimlich, patient became unresponsive and limp in my arm. Code Blue was called I proceeded to perform Heimlich maneuver x 3, with assistance from Dr. Hurtado pushing from in front of patient. Patient then heard with feint gasp, and I was able to hear breath sounds. Code blue was cancelled just as ER team arrived. Patient's skin returned to pinkish hue, SpO2 > 90% and she was more responsive. Unable to identify what patient choked on. Suspect it was dislodged and she swallowed it. Still possibility of aspiration. Attending notified. Chest x-ray ordered.
--- NOTE | 2021-11-03 15:57 | RAD REPORT ---
EXAM DESCRIPTION: RAD - Chest Single View - 11/03/2021 3:50 pm CLINICAL HISTORY: choking episode, apneic, s/p heimlich COMPARISON: Chest Single View dated 10/30/2021; Chest Single View dated 10/27/2021; Chest Single View dated 09/12/2021; Chest Single View dated 07/05/2021 FINDINGS: Lines: Right subclavian approach PICC with tip overlying the SVC. Lungs: No evidence of edema or pneumonia. Pleural: No significant pleural effusions or pneumothorax. Cardiac: The heart size is within normal limits. Bones: No acute fractures. Other: IMPRESSION: No acute cardiopulmonary disease.
[2021-11-03] MEDS ORDERED: NA CHLORIDE 0.9% 250 ML IV ONE (20:45)
[2021-11-03] MEDS: ATORVASTATIN 40 MG TAB PO SCH (20:55)
[2021-11-03] MEDS ORDERED: NA CHLORIDE 0.9% 500 ML ONE (22:19)
[2021-11-04 04:43] LABS: Absolute Lymphocytes (CBC) 0.5 K/uL (0.7-4.9); Hematocrit 42.5 % (36.0-45.0); Lymphocytes % 18.8 % (15.3-44.8); MCV 107.5 fL (80-100); MPV 8.7 fL (7.6-11.3); RBC Red Blood Cell Count 3.95 M/uL (3.86-4.86)
[2021-11-04 04:59] LABS: Potassium 4.3 mmol/L (3.5-5.1)
[2021-11-04 05:48] LABS: Platelet Estimate ADEQ; White Blood Cell Scan OK (OK)
[2021-11-04 05:49] LABS: Blood Morphology Comment NOTED (NOT SEEN); Macrocytosis 1+
[2021-11-04] MEDS: INSULIN -REGULAR HUMAN 50 UNIT/0.5 ML ML SQ SCH ×4 (07:30→21:00)
[2021-11-04] MEDS ORDERED: VANCOMYCIN 2 GM in NA CHLORIDE 0.9% 500 ML IVPB SCH (09:00)
[2021-11-04] MEDS: NYSTATIN 100MU/GM CREAM 15GM TOP SCH ×2 (09:00→21:00)
[2021-11-04] MEDS: FUROSEMIDE 20 MG TABLET PO SCH (09:20)
[2021-11-04] MEDS: APIXABAN 5 MG TABLET PO SCH ×2 (09:20→22:12)
[2021-11-04] MEDS: MIDODRINE HCL 5 MG TABLET PO SCH ×3 (09:20→22:13)
[2021-11-04] MEDS: POTASSIUM CL SA 10 MEQ TAB PO SCH ×2 (09:20→22:12)
[2021-11-04] MEDS: BUPROPRION HCL S.R. 150MG TAB PO SCH ×2 (09:20→22:12)
[2021-11-04] MEDS: GABAPENTIN 300 MG CAP PO SCH ×2 (09:20→22:12)
[2021-11-04] MEDS: CEFEPIME 1 GM in NA CHLORIDE 0.9% 100 ML IV SCH ×2 (09:21→22:13)
--- NOTE | 2021-11-04 10:35 | P.PN ---
Subjective Date of Service: 11/04/21 Chief Complaint: Altered mental status Subjective: No new changes, Improving (Stable clinically now. had no new issues with breathing.) Physical Examination - Vital Signs Temperature: 97.6 F Blood Pressure: 108/64 Pulse: 71 Respirations: 20 Pulse Ox (%): 94 - Physical Exam General: Alert, Oriented x3 HEENT: Atraumatic, Normocephalic Neck: Supple Respiratory: Normal air movement Cardiovascular: Regular rate/rhythm, Normal S1 S2 Gastrointestinal: Soft and benign Musculoskeletal: No swelling Integumentary: No breakdown Neurological: Normal speech - Studies Medications List Reviewed: Yes Assessment And Plan - Plan Assessment & Plan - Problems (Diagnosis) (1) AMS (altered mental status) Current Visit: Yes Status: Acute (2) Acute on chronic renal failure Current Visit: No Status: Acute Qualifiers: (3) Atrial fibrillation Onset Date: 08/14/17 Current Visit: No Status: Acute Qualifiers: (4) COPD (chronic obstructive pulmonary disease) Onset Date: 08/14/17 Current Visit: No Status: Acute Qualifiers: (5) History of pulmonary embolism Current Visit: No Status: Acute (6) CHF (congestive heart failure) Current Visit: No Status: Chronic Qualifiers: (7) Obesity Current Visit: No Status: Chronic Qualifiers: (8) Hypokalemia Current Visit: Yes Status: Acute (9) Metabolic alkalosis Current Visit: Yes Status: Acute Plan: Bacteremiawith mixed bacteremia in both culture bottles - suspect contamination Continue Vanco for the staph ludgenesis. ID following. Need antibiotics for at least 14 days- day 7 now Unable to get placement for IV antibiotics, will need to stay in hospital until completed course. Likely due to to UTI with E. coli and staph from sacral decubitus EchoTTEshows normal EF with normal-appearing valves. Septic shockimproved, continue midodrine, continue to hold off metoprolol Heart rate remained controlled. A. fib -is rate controlled now. Since no plan for intervention, we will continue Coumadin with Lovenox bridge. UTIwith E. coli, on Levaquin. Obesityweight loss advised. Sacral rashlikely dermatitis with pressure sacral decubitus ulcer. Continue off loading. Metabolic encephalopathyresolved. Astheniacontinue PT/OT. Dispositionstatus post placed PICC line, unable to be accepted at SNF due to indigent status Time Spent Managing PTS Care (In Minutes): 35 Physician Review: Patient Assessed, Agree with Above Assessment and Plan
[2021-11-04] MEDS: ALPRAZOLAM 0.5 MG TABLET PO SCH ×2 (11:01→22:12)
[2021-11-04] MEDS: ATORVASTATIN 40 MG TAB PO SCH (22:12)
[2021-11-05] MEDS: INSULIN -REGULAR HUMAN 50 UNIT/0.5 ML ML SQ SCH ×4 (07:30→20:59)
[2021-11-05] MEDS: CEFEPIME 1 GM in NA CHLORIDE 0.9% 100 ML IV SCH (08:19)
[2021-11-05] MEDS: BUPROPRION HCL S.R. 150MG TAB PO SCH ×2 (08:19→20:58)
[2021-11-05] MEDS: ASPIRIN EC 81 MG TAB PO SCH (08:20)
[2021-11-05] MEDS: GABAPENTIN 300 MG CAP PO SCH ×2 (08:20→20:58)
[2021-11-05] MEDS: MIDODRINE HCL 5 MG TABLET PO SCH ×3 (08:20→20:59)
[2021-11-05] MEDS: ALPRAZOLAM 0.5 MG TABLET PO SCH ×2 (08:20→20:58)
[2021-11-05] MEDS: POTASSIUM CL SA 10 MEQ TAB PO SCH ×2 (08:20→20:58)
[2021-11-05] MEDS: FUROSEMIDE 20 MG TABLET PO SCH (08:20)
[2021-11-05] MEDS: APIXABAN 5 MG TABLET PO SCH ×2 (08:20→20:58)
[2021-11-05] MEDS: NYSTATIN 100MU/GM CREAM 15GM TOP SCH ×2 (08:21→21:02)
[2021-11-05] MEDS ORDERED: VANCOMYCIN 1.75 GM in NA CHLORIDE 0.9% 500 ML IVPB SCH (09:00)
[2021-11-05] MEDS: VANCOMYCIN 1.75 GM in NA CHLORIDE 0.9% 500 ML IVPB SCH (09:33)
--- NOTE | 2021-11-05 17:56 | P.PN ---
Subjective Date of Service: 11/05/21 Chief Complaint: Altered mental status Patient seen and examined at bedside, states she is feeling well. Leukopenia worsening. Review of Systems 10-point ROS is otherwise unremarkable Physical Examination - Vital Signs Temperature: 97.4 F Blood Pressure: 93/63 Pulse: 64 Respirations: 16 Pulse Ox (%): 95 - Studies Laboratory Last Values WBC 7.3 K/uL (4.3-10.9) 10/27/21 03:55 RBC 4.90 M/uL (3.86-4.86) H 10/27/21 03:55 Hgb 17.1 g/dL (12.0-15.0) H 10/27/21 03:55 Hct 52.2 % (36.0-45.0) H 10/27/21 03:55 MCV 106.6 fL (80-100) H 10/27/21 03:55 MCH 35.0 pg (27.0-35.0) 10/27/21 03:55 MCHC 32.8 g/dL (32.0-36.0) 10/27/21 03:55 RDW 15.3 % (12.1-15.2) H 10/27/21 03:55 Plt Count 190 K/uL (152-406) 10/27/21 03:55 MPV 9.9 fL (7.6-11.3) 10/27/21 03:55 Neutrophils % 83.4 % (41.7-73.7) H 10/27/21 03:55 Lymphocytes % 8.1 % (15.3-44.8) L 10/27/21 03:55 Monocytes % 6.6 % (3.3-12.3) 10/27/21 03:55 Eosinophils % 1.7 % (0-4.4) 10/27/21 03:55 Basophils % 0.2 % (0-1.3) 10/27/21 03:55 Absolute Neutrophils 6.1 K/uL (1.8-8.0) 10/27/21 03:55 Absolute Lymphocytes 0.6 K/uL (0.7-4.9) L 10/27/21 03:55 Absolute Monocytes 0.5 K/uL (0.1-1.3) 10/27/21 03:55 Absolute Eosinophils 0.1 K/uL (0-0.5) 10/27/21 03:55 Absolute Basophils 0.0 K/uL (0-0.5) 10/27/21 03:55 Platelet Estimate Adeq 10/27/21 03:55 Clumped Platelets Few 10/27/21 03:55 Macrocytosis 2+ 10/27/21 03:55 Ovalocytes 1+ 10/27/21 03:55 Morphology Comment Noted (NOT SEEN) 10/27/21 03:55 PT 12.6 SECONDS (9.5-12.5) H 10/27/21 03:55 INR 1.14 10/27/21 03:55 APTT 28.6 SECONDS (24.3-36.9) 10/27/21 03:55 pH 7.37 (7.35-7.45) 10/27/21 06:43 pCO2 60.6 mmHG (35-45) H 10/27/21 06:43 pO2 89.2 mmHG (75-100) 10/27/21 06:43 HCO3 33.9 mmol/L (22-28) H 10/27/21 06:43 Base Excess 8.5 mmol/L 10/27/21 06:43 Oxyhemoglobin 92.2 % (94-97) L 10/27/21 06:43 ABG O2 Sat (Measured) 95.3 % (92-98.5) 10/27/21 06:43 ABG Carboxyhemoglobin 2.1 % (0-1.5) H 10/27/21 06:43 ABG Methemoglobin 1.2 % (0-1.5) 10/27/21 06:43 Other Total Hgb 15.3 g/dl (12-18) 10/27/21 06:43 Inspired O2 36.0 % 10/27/21 06:43 Sodium 140 mmol/L (136-145) 10/27/21 03:55 Potassium 2.7 mmol/L (3.5-5.1) L* 10/27/21 03:55 Chloride 95 mmol/L (98-107) L 10/27/21 03:55 Carbon Dioxide 38 mmol/L (21-32) H 10/27/21 03:55 Anion Gap 9.7 mEq/L (5.0-15.0) 10/27/21 03:55 BUN 30 mg/dL (7-18) H 10/27/21 03:55 Creatinine 1.40 mg/dL (0.55-1.3) H 10/27/21 03:55 Est GFR (CKD-EPI) 46 ml/min (=/>90) L 10/27/21 03:55 Glucose 137 mg/dL (74-106) H 10/27/21 03:55 POC Glucose 139 mg/dL (65-120) H 10/27/21 06:43 Lactic Acid 1.8 mmol/L (0.4-2.0) 10/27/21 02:41 Calcium 10.3 mg/dL (8.5-10.1) H 10/27/21 03:55 Total Bilirubin 0.6 mg/dL (0.2-1.0) 10/27/21 03:55 AST 83 U/L (15-37) H 10/27/21 03:55 ALT 58 U/L (12-78) 10/27/21 03:55 Alkaline Phosphatase 93 U/L (45-117) 10/27/21 03:55 Creatine Kinase 172 U/L (26-192) 10/27/21 03:55 NT-Pro-B Natriuret Pep 140 pg/mL (<125) H 10/27/21 03:55 Serum Total Protein 7.8 g/dL (6.4-8.2) 10/27/21 03:55 Albumin 3.3 g/dL (3.4-5.0) L 10/27/21 03:55 Globulin 4.5 g/dL (2.3-3.5) H 10/27/21 03:55 Albumin/Globulin Ratio 0.7 (1.1-1.8) L 10/27/21 03:55 Urine pH 6.0 (5.0-7.0) 10/27/21 04:17 Ur Specific [place] 1.020 (1.005-1.030) 10/27/21 04:17 Glucose (UA)(Auto) Negative (Negative) 10/27/21 04:17 Urine Ketones Negative (Negative) 10/27/21 04:17 Urine Blood Negative (Negative) 10/27/21 04:17 Urine Nitrite Positive (Negative) H 10/27/21 04:17 Ur Leukocyte Esterase Negative (Negative) 10/27/21 04:17 Urine RBC <5 /HPF (NONE SEEN) 10/27/21 04:15 Urine WBC 5-10 /HPF (<5) H 10/27/21 04:15 Ur Squamous Epith Cells <5 /HPF (NONE SEEN) 10/27/21 04:15 Urine Bacteria Loaded /HPF (<20) H 10/27/21 04:15 Urine Mucus 2+ /HPF (NONE SEEN) 10/27/21 04:15 Urine Culture Reflexed Not needed 10/27/21 04:15 Urine Total Protein Negative (Negative) 10/27/21 04:17 SARS-CoV-2 Rap RNA(RT-PCR) Negative (NEGATIVE) 10/27/21 05:33 Smear Scan Ok (OK) 10/27/21 03:55 Medications List Reviewed: Yes Assessment And Plan - Plan Physical exam: General: Alert, Oriented x3, Obese HEENT: Atraumatic Neck: Supple Respiratory: Clear to auscultation bilaterally, Normal air movement Cardiovascular: Other (Difficult auscultating secondary to body habitus) Capillary refill: <2 Seconds Gastrointestinal: Normal bowel sounds, Soft and benign Musculoskeletal: No clubbing, No swelling, No contractures, No erythema Integumentary: No rashes, No breakdown, Other (Bilateral buttocks wound, minimal tissue breakdown with flaky skin) Urinary: Other (Pure wick) External genitalia: Other (Genital warts) Conclusions/Impression: Antibiotics: Vancomycin: 10/28current Cefepime: 10/28current Gram-positive bacteremia Blood cultures obtained on 10/27 grew Staph lugdunesis in both aerobic bottles, repeat cultures obtained on 10/30 showed no growth. Susceptible only to vancomycin, recommend continuing this antibiotics for 2 weeks following negative blood culture report. Source of infection unclear, transthoracic echocardiogram negative for acute vegetation, panCT normal. Patient does have rash/wound on bilateral buttocks which could be source of infection however is still unclear. Patient also has multiple dental carriers, this bacteria is known to be a potential pathogen in oral infections. Recommend transesophageal echocardiogram. Urinary tract infection Urine culture obtained on 10/27 grew E. coli, pansensitive. -completed course of cefepime Leukopenia/thrombocytopenia -Cause unknown, patient not on any medications with agranulocytosis side effects No history of immunosuppression No history of cancer/chemotherapy ANC within normal range Recommend hematology consultation Morbid obesity, diabetes, COPD, CHF -Medical management per primary team Plan of care discussed with Dr. Garrett Thank you for consultation Physician Review: Patient Assessed, Agree with Above Assessment and Plan
[2021-11-05] MEDS: ATORVASTATIN 40 MG TAB PO SCH (20:58)
--- NOTE | 2021-11-05 22:44 | P.PN ---
Date of Service: 11/05/21 Subjective Subjective: patient is doing well. She is sleeping; she would not wake up. The nurses state she has been waking up fine. Will assess her later today. Physical Examination - Vital Signs reviewed - Physical Exam General: Alert, Oriented x3 Respiratory: Normal air movement Cardiovascular: Regular rate/rhythm, Normal S1 S2 Gastrointestinal: Soft and benign Musculoskeletal: No swelling Integumentary: No breakdown Neurological: Normal speech Assessment And Plan - Plan Assessment & Plan - Problems (Diagnosis) (1) AMS (altered mental status) Current Visit: Yes Status: Acute (2) Acute on chronic renal failure Current Visit: No Status: Acute Qualifiers: (3) Atrial fibrillation Onset Date: 08/14/17 Current Visit: No Status: Acute Qualifiers: (4) COPD (chronic obstructive pulmonary disease) Onset Date: 08/14/17 Current Visit: No Status: Acute Qualifiers: (5) History of pulmonary embolism Current Visit: No Status: Acute (6) CHF (congestive heart failure) Current Visit: No Status: Chronic Qualifiers: (7) Obesity Current Visit: No Status: Chronic Qualifiers: (8) Hypokalemia Current Visit: Yes Status: Acute (9) Metabolic alkalosis Current Visit: Yes Status: Acute Plan: Bacteremiawith mixed bacteremia in both culture bottles - suspect contamination Continue Vanco for the staph ludgenesis. ID following. Will discuss with them whether or not we need to continue this. It seems like the "bacteremia" maybe a contamination. Likely due to to UTI with E. coli and staph from sacral decubitus EchoTTEshows normal EF with normal-appearing valves. Septic shockimproved, continue midodrine, continue to hold off metoprolol Heart rate remained controlled. A. fib -is rate controlled now. Since no plan for intervention, we will continue Coumadin with Lovenox bridge. UTIwith E. coli, on Levaquin. Obesityweight loss advised. Sacral rashlikely dermatitis with pressure sacral decubitus ulcer. Continue off loading. Metabolic encephalopathyresolved. Astheniacontinue PT/OT. Dispositionstatus post placed PICC line, unable to be accepted at SNF due to indigent status Time Spent Managing PTS Care (In Minutes): 35 Physician Review: Patient Assessed, Agree with Above Assessment and Plan
[2021-11-06] MEDS: INSULIN -REGULAR HUMAN 50 UNIT/0.5 ML ML SQ SCH ×4 (07:30→21:00)
[2021-11-06] MEDS: POTASSIUM CL SA 10 MEQ TAB PO SCH ×2 (08:47→21:34)
[2021-11-06] MEDS: APIXABAN 5 MG TABLET PO SCH ×2 (08:47→21:34)
[2021-11-06] MEDS: FUROSEMIDE 20 MG TABLET PO SCH (08:47)
[2021-11-06] MEDS: ASPIRIN EC 81 MG TAB PO SCH (08:47)
[2021-11-06] MEDS: GABAPENTIN 300 MG CAP PO SCH ×2 (08:47→21:34)
[2021-11-06] MEDS: MIDODRINE HCL 5 MG TABLET PO SCH ×3 (08:50→21:34)
[2021-11-06] MEDS: BUPROPRION HCL S.R. 150MG TAB PO SCH ×2 (08:50→21:34)
[2021-11-06] MEDS: ALPRAZOLAM 0.5 MG TABLET PO SCH ×2 (08:51→21:34)
[2021-11-06] MEDS: NYSTATIN 100MU/GM CREAM 15GM TOP SCH ×2 (08:51→21:35)
[2021-11-06] MEDS: VANCOMYCIN 1.75 GM in NA CHLORIDE 0.9% 500 ML IVPB SCH (09:18)
--- NOTE | 2021-11-06 16:04 | P.PN ---
Subjective Date of Service: 11/06/21 Chief Complaint: Altered mental status Patient seen and examined at bedside, no new labs repeat ordered for tomorrow AM. Review of Systems 10-point ROS is otherwise unremarkable Physical Examination - Vital Signs Temperature: 97.6 F Blood Pressure: 97/70 Pulse: 80 Respirations: 16 Pulse Ox (%): 93 - Studies Laboratory Last Values WBC 7.3 K/uL (4.3-10.9) 10/27/21 03:55 RBC 4.90 M/uL (3.86-4.86) H 10/27/21 03:55 Hgb 17.1 g/dL (12.0-15.0) H 10/27/21 03:55 Hct 52.2 % (36.0-45.0) H 10/27/21 03:55 MCV 106.6 fL (80-100) H 10/27/21 03:55 MCH 35.0 pg (27.0-35.0) 10/27/21 03:55 MCHC 32.8 g/dL (32.0-36.0) 10/27/21 03:55 RDW 15.3 % (12.1-15.2) H 10/27/21 03:55 Plt Count 190 K/uL (152-406) 10/27/21 03:55 MPV 9.9 fL (7.6-11.3) 10/27/21 03:55 Neutrophils % 83.4 % (41.7-73.7) H 10/27/21 03:55 Lymphocytes % 8.1 % (15.3-44.8) L 10/27/21 03:55 Monocytes % 6.6 % (3.3-12.3) 10/27/21 03:55 Eosinophils % 1.7 % (0-4.4) 10/27/21 03:55 Basophils % 0.2 % (0-1.3) 10/27/21 03:55 Absolute Neutrophils 6.1 K/uL (1.8-8.0) 10/27/21 03:55 Absolute Lymphocytes 0.6 K/uL (0.7-4.9) L 10/27/21 03:55 Absolute Monocytes 0.5 K/uL (0.1-1.3) 10/27/21 03:55 Absolute Eosinophils 0.1 K/uL (0-0.5) 10/27/21 03:55 Absolute Basophils 0.0 K/uL (0-0.5) 10/27/21 03:55 Platelet Estimate Adeq 10/27/21 03:55 Clumped Platelets Few 10/27/21 03:55 Macrocytosis 2+ 10/27/21 03:55 Ovalocytes 1+ 10/27/21 03:55 Morphology Comment Noted (NOT SEEN) 10/27/21 03:55 PT 12.6 SECONDS (9.5-12.5) H 10/27/21 03:55 INR 1.14 10/27/21 03:55 APTT 28.6 SECONDS (24.3-36.9) 10/27/21 03:55 pH 7.37 (7.35-7.45) 10/27/21 06:43 pCO2 60.6 mmHG (35-45) H 10/27/21 06:43 pO2 89.2 mmHG (75-100) 10/27/21 06:43 HCO3 33.9 mmol/L (22-28) H 10/27/21 06:43 Base Excess 8.5 mmol/L 10/27/21 06:43 Oxyhemoglobin 92.2 % (94-97) L 10/27/21 06:43 ABG O2 Sat (Measured) 95.3 % (92-98.5) 10/27/21 06:43 ABG Carboxyhemoglobin 2.1 % (0-1.5) H 10/27/21 06:43 ABG Methemoglobin 1.2 % (0-1.5) 10/27/21 06:43 Other Total Hgb 15.3 g/dl (12-18) 10/27/21 06:43 Inspired O2 36.0 % 10/27/21 06:43 Sodium 140 mmol/L (136-145) 10/27/21 03:55 Potassium 2.7 mmol/L (3.5-5.1) L* 10/27/21 03:55 Chloride 95 mmol/L (98-107) L 10/27/21 03:55 Carbon Dioxide 38 mmol/L (21-32) H 10/27/21 03:55 Anion Gap 9.7 mEq/L (5.0-15.0) 10/27/21 03:55 BUN 30 mg/dL (7-18) H 10/27/21 03:55 Creatinine 1.40 mg/dL (0.55-1.3) H 10/27/21 03:55 Est GFR (CKD-EPI) 46 ml/min (=/>90) L 10/27/21 03:55 Glucose 137 mg/dL (74-106) H 10/27/21 03:55 POC Glucose 139 mg/dL (65-120) H 10/27/21 06:43 Lactic Acid 1.8 mmol/L (0.4-2.0) 10/27/21 02:41 Calcium 10.3 mg/dL (8.5-10.1) H 10/27/21 03:55 Total Bilirubin 0.6 mg/dL (0.2-1.0) 10/27/21 03:55 AST 83 U/L (15-37) H 10/27/21 03:55 ALT 58 U/L (12-78) 10/27/21 03:55 Alkaline Phosphatase 93 U/L (45-117) 10/27/21 03:55 Creatine Kinase 172 U/L (26-192) 10/27/21 03:55 NT-Pro-B Natriuret Pep 140 pg/mL (<125) H 10/27/21 03:55 Serum Total Protein 7.8 g/dL (6.4-8.2) 10/27/21 03:55 Albumin 3.3 g/dL (3.4-5.0) L 10/27/21 03:55 Globulin 4.5 g/dL (2.3-3.5) H 10/27/21 03:55 Albumin/Globulin Ratio 0.7 (1.1-1.8) L 10/27/21 03:55 Urine pH 6.0 (5.0-7.0) 10/27/21 04:17 Ur Specific [place] 1.020 (1.005-1.030) 10/27/21 04:17 Glucose (UA)(Auto) Negative (Negative) 10/27/21 04:17 Urine Ketones Negative (Negative) 10/27/21 04:17 Urine Blood Negative (Negative) 10/27/21 04:17 Urine Nitrite Positive (Negative) H 10/27/21 04:17 Ur Leukocyte Esterase Negative (Negative) 10/27/21 04:17 Urine RBC <5 /HPF (NONE SEEN) 10/27/21 04:15 Urine WBC 5-10 /HPF (<5) H 10/27/21 04:15 Ur Squamous Epith Cells <5 /HPF (NONE SEEN) 10/27/21 04:15 Urine Bacteria Loaded /HPF (<20) H 10/27/21 04:15 Urine Mucus 2+ /HPF (NONE SEEN) 10/27/21 04:15 Urine Culture Reflexed Not needed 10/27/21 04:15 Urine Total Protein Negative (Negative) 10/27/21 04:17 SARS-CoV-2 Rap RNA(RT-PCR) Negative (NEGATIVE) 10/27/21 05:33 Smear Scan Ok (OK) 10/27/21 03:55 Medications List Reviewed: Yes Assessment And Plan - Plan Physical exam: General: Alert, Oriented x3, Obese HEENT: Atraumatic Neck: Supple Respiratory: Clear to auscultation bilaterally, Normal air movement Cardiovascular: Other (Difficult auscultating secondary to body habitus) Capillary refill: <2 Seconds Gastrointestinal: Normal bowel sounds, Soft and benign Musculoskeletal: No clubbing, No swelling, No contractures, No erythema Integumentary: No rashes, No breakdown, Other (Bilateral buttocks wound, minimal tissue breakdown with flaky skin) Urinary: Other (Pure wick) External genitalia: Other (Genital warts) Conclusions/Impression: Antibiotics: Vancomycin: 10/28current Cefepime: 10/28current Gram-positive bacteremia Blood cultures obtained on 10/27 grew Staph lugdunesis in both aerobic bottles, repeat cultures obtained on 10/30 showed no growth. Susceptible only to vancomycin, recommend continuing this antibiotics for 2 weeks following negative blood culture report. Source of infection unclear, transthoracic echocardiogram negative for acute vegetation, panCT normal. Patient does have rash/wound on bilateral buttocks which could be source of infection however is still unclear. Patient also has multiple dental carriers, this bacteria is known to be a potential pathogen in oral infections. Recommend transesophageal echocardiogram. Urinary tract infection Urine culture obtained on 10/27 grew E. coli, pansensitive. -completed course of cefepime Leukopenia/thrombocytopenia -Cause unknown, patient not on any medications with agranulocytosis side effects No history of immunosuppression No history of cancer/chemotherapy ANC within normal range Recommend hematology consultation Morbid obesity, diabetes, COPD, CHF -Medical management per primary team Plan of care discussed with Dr. Garrett Thank you for consultation Physician Review: Patient Assessed, Agree with Above Assessment and Plan
[2021-11-06] MEDS: ATORVASTATIN 40 MG TAB PO SCH (21:34)
--- NOTE | 2021-11-06 22:08 | P.PN ---
Date of Service: 11/06/21 Subjective Subjective: Patient is doing well. Patient continues to do well. She looks like she is clinically stable. Bacteremia could possibly be contamination. However, at this time will continue with antibiotic regimen. Physical Examination - Vital Signs reviewed - Physical Exam General: Alert, Oriented x3 Respiratory: Normal air movement Cardiovascular: Regular rate/rhythm, Normal S1 S2 Gastrointestinal: Soft and benign Musculoskeletal: No swelling Integumentary: No breakdown Neurological: Normal speech Assessment & Plan - Problems (Diagnosis) (1) AMS (altered mental status) Current Visit: Yes Status: Acute (2) Acute on chronic renal failure Current Visit: No Status: Acute Qualifiers: (3) Atrial fibrillation Onset Date: 08/14/17 Current Visit: No Status: Acute Qualifiers: (4) COPD (chronic obstructive pulmonary disease) Onset Date: 08/14/17 Current Visit: No Status: Acute Qualifiers: (5) History of pulmonary embolism Current Visit: No Status: Acute (6) CHF (congestive heart failure) Current Visit: No Status: Chronic Qualifiers: (7) Obesity Current Visit: No Status: Chronic Qualifiers: (8) Hypokalemia Current Visit: Yes Status: Acute (9) Metabolic alkalosis Current Visit: Yes Status: Acute Plan: Bacteremiawith mixed bacteremia in both culture bottles - suspect contamination Continue Vanco for the staph ludgenesis. ID following. Will discuss with them whether or not we need to continue this. It seems like the "bacteremia" maybe a contamination. Likely due to to UTI with E. coli and staph from sacral decubitus EchoTTEshows normal EF with normal-appearing valves. Septic shockimproved, continue midodrine, continue to hold off metoprolol Heart rate remained controlled. A. fib -is rate controlled now. Since no plan for intervention, we will continue Coumadin with Lovenox bridge. UTIwith E. coli, on Levaquin. Obesityweight loss advised. Sacral rashlikely dermatitis with pressure sacral decubitus ulcer. Continue off loading. Metabolic encephalopathyresolved. Astheniacontinue PT/OT. Dispositionstatus post placed PICC line, unable to be accepted at [facility] due to indigent status Time Spent Managing PTS Care (In Minutes): 35 Physician Review: Patient Assessed, Agree with Above Assessment and Plan
[2021-11-07 05:59] LABS: Absolute Lymphocytes (CBC) 0.9 K/uL (0.7-4.9); Hematocrit 44.6 % (36.0-45.0); Lymphocytes % 26.9 % (15.3-44.8); MCV 107.1 fL (80-100); MPV 8.8 fL (7.6-11.3); RBC Red Blood Cell Count 4.16 M/uL (3.86-4.86)
[2021-11-07 06:01] LABS: Potassium 4.7 mmol/L (3.5-5.1)
[2021-11-07] MEDS: INSULIN -REGULAR HUMAN 50 UNIT/0.5 ML ML SQ SCH ×4 (07:30→21:00)
[2021-11-07] MEDS: BUPROPRION HCL S.R. 150MG TAB PO SCH ×2 (09:00→22:44)
[2021-11-07] MEDS: FUROSEMIDE 20 MG TABLET PO SCH (09:00)
[2021-11-07] MEDS: VANCOMYCIN 1.75 GM in NA CHLORIDE 0.9% 500 ML IVPB SCH (09:00)
--- NOTE | 2021-11-07 11:11 | RAD REPORT ---
EXAM DESCRIPTION: CTAbdomen Pelvis W Contrast - 11/07/2021 11:00 am CLINICAL HISTORY: abd distention COMPARISON: Abdomen Pelvis W Contrast dated 06/03/2021; Thorax Wo Con dated 06/28/2021; Stone Protoc ol dated 08/16/2017 TECHNIQUE: CT of the abdomen and pelvis was performed with intravenous and oral contrast. All CT scans are performed using dose optimization technique as appropriate and may include automated exposure control or mA/KV adjustment according to patient size. FINDINGS: Lower chest: Right basilar atelectasis. Coronary artery calcifications. Liver: No acute abnormality or suspicious lesions. Biliary: No biliary ductal dilatation. Stomach: No significant focal abnormality. Duodenum: No significant focal abnormality. Pancreas: No significant abnormality. Spleen: No significant abnormality. Adrenal: No suspicious lesions. Kidney/ureter: No hydronephrosis. No renal calculi. Multiple bilateral renal lesions of varying compl exity. Many of the lesions are present on the CT from 08/16/2017. Some of the more suspicious appeari ng lesions were previously clearly proteinaceous/hemorrhagic cysts on the CT from and have pr esumably ruptured in the interim. The findings are unchanged since 06/03/2021. Retroperitoneum: No retroperitoneal adenopathy. Vascular: No aneurysm. Bowel: No significant focal abnormality. Peritoneum: No ascites or free air. Bladder: Grossly unremarkable. Reproductive: No adnexal masses. Bones: No acute fracture. Other: n/a IMPRESSION: 1. No acute intra-abdominal or pelvic finding. 2. Bilateral renal lesions of varying complexity which are similar to 06/28/2021. All favored to repr esent a combination of simple and minimally complicated cysts. Consider 12 month follow-up renal prot ocol CT or MRI to ensure stability.
--- NOTE | 2021-11-07 12:10 | P.PN ---
Subjective Date of Service: 11/07/21 Chief Complaint: Altered mental status Patient seen and examined at bedside, thrombocytopenia worsening. Review of Systems 10-point ROS is otherwise unremarkable Physical Examination - Vital Signs Temperature: 97.3 F Blood Pressure: 89/53 Pulse: 73 Respirations: 16 Pulse Ox (%): 97 - Studies Laboratory Last Values WBC 7.3 K/uL (4.3-10.9) 10/27/21 03:55 RBC 4.90 M/uL (3.86-4.86) H 10/27/21 03:55 Hgb 17.1 g/dL (12.0-15.0) H 10/27/21 03:55 Hct 52.2 % (36.0-45.0) H 10/27/21 03:55 MCV 106.6 fL (80-100) H 10/27/21 03:55 MCH 35.0 pg (27.0-35.0) 10/27/21 03:55 MCHC 32.8 g/dL (32.0-36.0) 10/27/21 03:55 RDW 15.3 % (12.1-15.2) H 10/27/21 03:55 Plt Count 190 K/uL (152-406) 10/27/21 03:55 MPV 9.9 fL (7.6-11.3) 10/27/21 03:55 Neutrophils % 83.4 % (41.7-73.7) H 10/27/21 03:55 Lymphocytes % 8.1 % (15.3-44.8) L 10/27/21 03:55 Monocytes % 6.6 % (3.3-12.3) 10/27/21 03:55 Eosinophils % 1.7 % (0-4.4) 10/27/21 03:55 Basophils % 0.2 % (0-1.3) 10/27/21 03:55 Absolute Neutrophils 6.1 K/uL (1.8-8.0) 10/27/21 03:55 Absolute Lymphocytes 0.6 K/uL (0.7-4.9) L 10/27/21 03:55 Absolute Monocytes 0.5 K/uL (0.1-1.3) 10/27/21 03:55 Absolute Eosinophils 0.1 K/uL (0-0.5) 10/27/21 03:55 Absolute Basophils 0.0 K/uL (0-0.5) 10/27/21 03:55 Platelet Estimate Adeq 10/27/21 03:55 Clumped Platelets Few 10/27/21 03:55 Macrocytosis 2+ 10/27/21 03:55 Ovalocytes 1+ 10/27/21 03:55 Morphology Comment Noted (NOT SEEN) 10/27/21 03:55 PT 12.6 SECONDS (9.5-12.5) H 10/27/21 03:55 INR 1.14 10/27/21 03:55 APTT 28.6 SECONDS (24.3-36.9) 10/27/21 03:55 pH 7.37 (7.35-7.45) 10/27/21 06:43 pCO2 60.6 mmHG (35-45) H 10/27/21 06:43 pO2 89.2 mmHG (75-100) 10/27/21 06:43 HCO3 33.9 mmol/L (22-28) H 10/27/21 06:43 Base Excess 8.5 mmol/L 10/27/21 06:43 Oxyhemoglobin 92.2 % (94-97) L 10/27/21 06:43 ABG O2 Sat (Measured) 95.3 % (92-98.5) 10/27/21 06:43 ABG Carboxyhemoglobin 2.1 % (0-1.5) H 10/27/21 06:43 ABG Methemoglobin 1.2 % (0-1.5) 10/27/21 06:43 Other Total Hgb 15.3 g/dl (12-18) 10/27/21 06:43 Inspired O2 36.0 % 10/27/21 06:43 Sodium 140 mmol/L (136-145) 10/27/21 03:55 Potassium 2.7 mmol/L (3.5-5.1) L* 10/27/21 03:55 Chloride 95 mmol/L (98-107) L 10/27/21 03:55 Carbon Dioxide 38 mmol/L (21-32) H 10/27/21 03:55 Anion Gap 9.7 mEq/L (5.0-15.0) 10/27/21 03:55 BUN 30 mg/dL (7-18) H 10/27/21 03:55 Creatinine 1.40 mg/dL (0.55-1.3) H 10/27/21 03:55 Est GFR (CKD-EPI) 46 ml/min (=/>90) L 10/27/21 03:55 Glucose 137 mg/dL (74-106) H 10/27/21 03:55 POC Glucose 139 mg/dL (65-120) H 10/27/21 06:43 Lactic Acid 1.8 mmol/L (0.4-2.0) 10/27/21 02:41 Calcium 10.3 mg/dL (8.5-10.1) H 10/27/21 03:55 Total Bilirubin 0.6 mg/dL (0.2-1.0) 10/27/21 03:55 AST 83 U/L (15-37) H 10/27/21 03:55 ALT 58 U/L (12-78) 10/27/21 03:55 Alkaline Phosphatase 93 U/L (45-117) 10/27/21 03:55 Creatine Kinase 172 U/L (26-192) 10/27/21 03:55 NT-Pro-B Natriuret Pep 140 pg/mL (<125) H 10/27/21 03:55 Serum Total Protein 7.8 g/dL (6.4-8.2) 10/27/21 03:55 Albumin 3.3 g/dL (3.4-5.0) L 10/27/21 03:55 Globulin 4.5 g/dL (2.3-3.5) H 10/27/21 03:55 Albumin/Globulin Ratio 0.7 (1.1-1.8) L 10/27/21 03:55 Urine pH 6.0 (5.0-7.0) 10/27/21 04:17 Ur Specific [place] 1.020 (1.005-1.030) 10/27/21 04:17 Glucose (UA)(Auto) Negative (Negative) 10/27/21 04:17 Urine Ketones Negative (Negative) 10/27/21 04:17 Urine Blood Negative (Negative) 10/27/21 04:17 Urine Nitrite Positive (Negative) H 10/27/21 04:17 Ur Leukocyte Esterase Negative (Negative) 10/27/21 04:17 Urine RBC <5 /HPF (NONE SEEN) 10/27/21 04:15 Urine WBC 5-10 /HPF (<5) H 10/27/21 04:15 Ur Squamous Epith Cells <5 /HPF (NONE SEEN) 10/27/21 04:15 Urine Bacteria Loaded /HPF (<20) H 10/27/21 04:15 Urine Mucus 2+ /HPF (NONE SEEN) 10/27/21 04:15 Urine Culture Reflexed Not needed 10/27/21 04:15 Urine Total Protein Negative (Negative) 10/27/21 04:17 SARS-CoV-2 Rap RNA(RT-PCR) Negative (NEGATIVE) 10/27/21 05:33 Smear Scan Ok (OK) 10/27/21 03:55 Medications List Reviewed: Yes Assessment And Plan - Plan Physical exam: General: Alert, Oriented x3, Obese HEENT: Atraumatic Neck: Supple Respiratory: Clear to auscultation bilaterally, Normal air movement Cardiovascular: Other (Difficult auscultating secondary to body habitus) Capillary refill: <2 Seconds Gastrointestinal: Normal bowel sounds, Soft and benign Musculoskeletal: No clubbing, No swelling, No contractures, No erythema Integumentary: No rashes, No breakdown, Other (Bilateral buttocks wound, minimal tissue breakdown with flaky skin) Urinary: Other (Pure wick) External genitalia: Other (Genital warts) Conclusions/Impression: Antibiotics: Vancomycin: 10/28current Cefepime: Gram-positive bacteremia Blood cultures obtained on 10/27 grew Staph lugdunesis in both aerobic bottles, repeat cultures obtained on 10/30 showed no growth. Susceptible only to vancomycin, recommend continuing this antibiotics for 2 weeks following negative blood culture report. Source of infection unclear, transthoracic echocardiogram negative for acute vegetation, panCT normal. Patient does have rash/wound on bilateral buttocks which could be source of infection however is still unclear. Patient also has multiple dental carriers, this bacteria is known to be a potential pathogen in oral infections. Recommend transesophageal echocardiogram. Urinary tract infection Urine culture obtained on 10/27 grew E. coli, pansensitive. -completed course of cefepime Leukopenia/thrombocytopenia -Cause unknown, patient not on any medications with these side effects. Vancomycin has been rarely known to cause thrombocytopenia, continue to monitor. No history of immunosuppression No history of cancer/chemotherapy ANC within normal range Recommend hematology consultation Morbid obesity, diabetes, COPD, CHF -Medical management per primary team Plan of care discussed with Dr. Garrett Thank you for consultation Physician Review: Patient Assessed, Agree with Above Assessment and Plan
[2021-11-07] MEDS: ALPRAZOLAM 0.5 MG TABLET PO SCH ×2 (13:17→21:00)
[2021-11-07] MEDS: GABAPENTIN 300 MG CAP PO SCH ×2 (13:17→22:44)
[2021-11-07] MEDS: ASPIRIN EC 81 MG TAB PO SCH ×2 (13:18→13:19)
[2021-11-07] MEDS: MIDODRINE HCL 5 MG TABLET PO SCH ×3 (13:18→22:44)
[2021-11-07] MEDS: POTASSIUM CL SA 10 MEQ TAB PO SCH ×2 (13:19→22:44)
[2021-11-07] MEDS: APIXABAN 5 MG TABLET PO SCH ×2 (13:19→22:44)
[2021-11-07] MEDS: NYSTATIN 100MU/GM CREAM 15GM TOP SCH ×2 (13:20→21:00)
--- NOTE | 2021-11-07 15:30 | P.PN ---
Date of Service: 11/07/21 Subjective Subjective: Patient doing well with no new complaints. Finishing antibiotics. CT u nremarkable except for renal cysts. Physical Examination - Vital Signs reviewed - Physical Exam General: Alert, Oriented x3 Respiratory: Normal air movement Cardiovascular: Regular rate/rhythm, Normal S1 S2 Gastrointestinal: Soft and benign Musculoskeletal: No swelling Integumentary: No breakdown Neurological: Normal speech Assessment & Plan - Problems (Diagnosis) (1) AMS (altered mental status) Current Visit: Yes Status: Acute (2) Acute on chronic renal failure Current Visit: No Status: Acute Qualifiers: (3) Atrial fibrillation Onset Date: 08/14/17 Current Visit: No Status: Acute Qualifiers: (4) COPD (chronic obstructive pulmonary disease) Onset Date: 08/14/17 Current Visit: No Status: Acute Qualifiers: (5) History of pulmonary embolism Current Visit: No Status: Acute (6) CHF (congestive heart failure) Current Visit: No Status: Chronic Qualifiers: (7) Obesity Current Visit: No Status: Chronic Qualifiers: (8) Hypokalemia Current Visit: Yes Status: Acute (9) Metabolic alkalosis Current Visit: Yes Status: Acute Plan: Bacteremiawith mixed bacteremia in both culture bottles - suspect contamination Continue Vanco for the staph ludgenesis. ID following. Will discuss with them whether or not we need to continue this. It seems like the "bacteremia" maybe a contamination. Likely due to to UTI with E. coli and staph from sacral decubitus EchoTTEshows normal EF with normal-appearing valves. Septic shockimproved, continue midodrine, continue to hold off metoprolol Heart rate remained controlled. A. fib -is rate controlled now. Since no plan for intervention, we will continue Coumadin with Lovenox bridge. UTI/renal cystwith E. coli, on Levaquin. Repeat CT scan or MRI as an outpatient in 3 to 6 months Obesityweight loss advised. Sacral rashlikely dermatitis with pressure sacral decubitus ulcer. Continue off loading. Metabolic encephalopathyresolved. Astheniacontinue PT/OT. Dispositionstatus post placed PICC line, unable to be accepted at [facility] due to indigent status Time Spent Managing PTS Care (In Minutes): 35 Physician Review: Patient Assessed, Agree with Above Assessment and Plan
[2021-11-07] MEDS: ATORVASTATIN 40 MG TAB PO SCH (22:44)
[2021-11-08] MEDS: INSULIN -REGULAR HUMAN 50 UNIT/0.5 ML ML SQ SCH ×4 (07:30→19:46)
[2021-11-08] MEDS: ALPRAZOLAM 0.5 MG TABLET PO SCH ×2 (09:00→23:01)
[2021-11-08] MEDS: FUROSEMIDE 20 MG TABLET PO SCH (09:00)
[2021-11-08] MEDS: MIDODRINE HCL 5 MG TABLET PO SCH ×3 (09:02→21:45)
[2021-11-08] MEDS: GABAPENTIN 300 MG CAP PO SCH ×2 (09:03→21:45)
[2021-11-08] MEDS: APIXABAN 5 MG TABLET PO SCH ×2 (09:03→21:46)
[2021-11-08] MEDS: BUPROPRION HCL S.R. 150MG TAB PO SCH ×2 (09:03→21:46)
[2021-11-08] MEDS: POTASSIUM CL SA 10 MEQ TAB PO SCH ×2 (09:03→21:45)
[2021-11-08] MEDS: NYSTATIN 100MU/GM CREAM 15GM TOP SCH ×2 (09:04→21:49)
[2021-11-08] MEDS: VANCOMYCIN 1.75 GM in NA CHLORIDE 0.9% 500 ML IVPB SCH (10:18)
--- NOTE | 2021-11-08 11:22 | P.PN ---
Subjective Date of Service: 11/08/21 Chief Complaint: Altered mental status Patient seen and examined at bedside, thromboyctopenia--no petechiae noted on skin exam. Per nursing staff patients O2 on RA was 88%. Was placed on 2 L NS. CXR pending. Last week elias did have RR that turned into a CB after eating food while laying down and have chocking event. Patient recovered form this and was advised to eat her meals in an upright position. Review of Systems 10-point ROS is otherwise unremarkable Physical Examination - Vital Signs Temperature: 96.4 F Blood Pressure: 90/66 Pulse: 67 Respirations: 16 Pulse Ox (%): 89 - Studies Laboratory Last Values WBC 7.3 K/uL (4.3-10.9) 10/27/21 03:55 RBC 4.90 M/uL (3.86-4.86) H 10/27/21 03:55 Hgb 17.1 g/dL (12.0-15.0) H 10/27/21 03:55 Hct 52.2 % (36.0-45.0) H 10/27/21 03:55 MCV 106.6 fL (80-100) H 10/27/21 03:55 MCH 35.0 pg (27.0-35.0) 10/27/21 03:55 MCHC 32.8 g/dL (32.0-36.0) 10/27/21 03:55 RDW 15.3 % (12.1-15.2) H 10/27/21 03:55 Plt Count 190 K/uL (152-406) 10/27/21 03:55 MPV 9.9 fL (7.6-11.3) 10/27/21 03:55 Neutrophils % 83.4 % (41.7-73.7) H 10/27/21 03:55 Lymphocytes % 8.1 % (15.3-44.8) L 10/27/21 03:55 Monocytes % 6.6 % (3.3-12.3) 10/27/21 03:55 Eosinophils % 1.7 % (0-4.4) 10/27/21 03:55 Basophils % 0.2 % (0-1.3) 10/27/21 03:55 Absolute Neutrophils 6.1 K/uL (1.8-8.0) 10/27/21 03:55 Absolute Lymphocytes 0.6 K/uL (0.7-4.9) L 10/27/21 03:55 Absolute Monocytes 0.5 K/uL (0.1-1.3) 10/27/21 03:55 Absolute Eosinophils 0.1 K/uL (0-0.5) 10/27/21 03:55 Absolute Basophils 0.0 K/uL (0-0.5) 10/27/21 03:55 Platelet Estimate Adeq 10/27/21 03:55 Clumped Platelets Few 10/27/21 03:55 Macrocytosis 2+ 10/27/21 03:55 Ovalocytes 1+ 10/27/21 03:55 Morphology Comment Noted (NOT SEEN) 10/27/21 03:55 PT 12.6 SECONDS (9.5-12.5) H 10/27/21 03:55 INR 1.14 10/27/21 03:55 APTT 28.6 SECONDS (24.3-36.9) 10/27/21 03:55 pH 7.37 (7.35-7.45) 10/27/21 06:43 pCO2 60.6 mmHG (35-45) H 10/27/21 06:43 pO2 89.2 mmHG (75-100) 10/27/21 06:43 HCO3 33.9 mmol/L (22-28) H 10/27/21 06:43 Base Excess 8.5 mmol/L 10/27/21 06:43 Oxyhemoglobin 92.2 % (94-97) L 10/27/21 06:43 ABG O2 Sat (Measured) 95.3 % (92-98.5) 10/27/21 06:43 ABG Carboxyhemoglobin 2.1 % (0-1.5) H 10/27/21 06:43 ABG Methemoglobin 1.2 % (0-1.5) 10/27/21 06:43 Other Total Hgb 15.3 g/dl (12-18) 10/27/21 06:43 Inspired O2 36.0 % 10/27/21 06:43 Sodium 140 mmol/L (136-145) 10/27/21 03:55 Potassium 2.7 mmol/L (3.5-5.1) L* 10/27/21 03:55 Chloride 95 mmol/L (98-107) L 10/27/21 03:55 Carbon Dioxide 38 mmol/L (21-32) H 10/27/21 03:55 Anion Gap 9.7 mEq/L (5.0-15.0) 10/27/21 03:55 BUN 30 mg/dL (7-18) H 10/27/21 03:55 Creatinine 1.40 mg/dL (0.55-1.3) H 10/27/21 03:55 Est GFR (CKD-EPI) 46 ml/min (=/>90) L 10/27/21 03:55 Glucose 137 mg/dL (74-106) H 10/27/21 03:55 POC Glucose 139 mg/dL (65-120) H 10/27/21 06:43 Lactic Acid 1.8 mmol/L (0.4-2.0) 10/27/21 02:41 Calcium 10.3 mg/dL (8.5-10.1) H 10/27/21 03:55 Total Bilirubin 0.6 mg/dL (0.2-1.0) 10/27/21 03:55 AST 83 U/L (15-37) H 10/27/21 03:55 ALT 58 U/L (12-78) 10/27/21 03:55 Alkaline Phosphatase 93 U/L (45-117) 10/27/21 03:55 Creatine Kinase 172 U/L (26-192) 10/27/21 03:55 NT-Pro-B Natriuret Pep 140 pg/mL (<125) H 10/27/21 03:55 Serum Total Protein 7.8 g/dL (6.4-8.2) 10/27/21 03:55 Albumin 3.3 g/dL (3.4-5.0) L 10/27/21 03:55 Globulin 4.5 g/dL (2.3-3.5) H 10/27/21 03:55 Albumin/Globulin Ratio 0.7 (1.1-1.8) L 10/27/21 03:55 Urine pH 6.0 (5.0-7.0) 10/27/21 04:17 Ur Specific Lindsay 1.020 (1.005-1.030) 10/27/21 04:17 Glucose (UA)(Auto) Negative (Negative) 10/27/21 04:17 Urine Ketones Negative (Negative) 10/27/21 04:17 Urine Blood Negative (Negative) 10/27/21 04:17 Urine Nitrite Positive (Negative) H 10/27/21 04:17 Ur Leukocyte Esterase Negative (Negative) 10/27/21 04:17 Urine RBC <5 /HPF (NONE SEEN) 10/27/21 04:15 Urine WBC 5-10 /HPF (<5) H 10/27/21 04:15 Ur Squamous Epith Cells <5 /HPF (NONE SEEN) 10/27/21 04:15 Urine Bacteria Loaded /HPF (<20) H 10/27/21 04:15 Urine Mucus 2+ /HPF (NONE SEEN) 10/27/21 04:15 Urine Culture Reflexed Not needed 10/27/21 04:15 Urine Total Protein Negative (Negative) 10/27/21 04:17 SARS-CoV-2 Rap RNA(RT-PCR) Negative (NEGATIVE) 10/27/21 05:33 Smear Scan Ok (OK) 10/27/21 03:55 Medications List Reviewed: Yes Assessment And Plan - Plan Physical exam: General: Alert, Oriented x3, Obese HEENT: Atraumatic Neck: Supple Respiratory: Clear to auscultation bilaterally, Normal air movement Cardiovascular: Other (Difficult auscultating secondary to body habitus) Capillary refill: <2 Seconds Gastrointestinal: Normal bowel sounds, Soft and benign Musculoskeletal: No clubbing, No swelling, No contractures, No erythema Integumentary: No rashes, No breakdown, Other (Bilateral buttocks wound, minimal tissue breakdown with flaky skin) External genitalia: Other (Genital warts) Conclusions/Impression: Antibiotics: Vancomycin: 10/28current Cefepime: Gram-positive bacteremia Blood cultures obtained on 10/27 grew Staph lugdunesis in both aerobic bottles, repeat cultures obtained on 10/30 showed no growth. Susceptible only to vancomycin, recommend continuing this antibiotics for 2 weeks following negative blood culture report. Source of infection unclear, transthoracic echocardiogram negative for acute vegetation, panCT normal. Patient does have rash/wound on bilateral buttocks which could be source of infection however is still unclear. Patient also has multiple dental carriers, this bacteria is known to be a potential pathogen in oral infections. Recommend transesophageal echocardiogram. Urinary tract infection Urine culture obtained on 10/27 grew E. coli, pansensitive. -completed course of cefepime Leukopenia/thrombocytopenia -Cause unknown, patient not on any medications with these side effects. Vancomycin has been rarely known to cause thrombocytopenia, continue to monitor. No history of immunosuppression No history of cancer/chemotherapy ANC within normal range Recommend hematology consultation -no petechiae noted on skin exam -patient denies rectal bleedinbg Respiratory distress -Per nursing staff patients O2 on RA was 88%. Was placed on 2 L NS. CXR pending. -Last week elias did have RR that turned into a CB after eating food while laying down and have chocking event. Patient recovered form this and was advised to eat her meals in an upright position. Morbid obesity, diabetes, COPD, CHF -Medical management per primary team Plan of care discussed with Dr. Garrett Thank you for consultation Physician Review: Patient Assessed, Agree with Above Assessment and Plan
--- NOTE | 2021-11-08 13:30 | RAD REPORT ---
EXAM DESCRIPTION: RAD - Chest Pa And Lat (2 Views) - 11/08/2021 1:07 pm CLINICAL HISTORY: low 02 stats on RA Chest pain. COMPARISON: Chest Single View dated 11/03/2021; Chest Single View dated 10/30/2021; Chest Single View dated 10/27/2021; Chest Single View dated 09/12/2021 FINDINGS: Mild interstitial prominence bilaterally probably represents mild interstitial pulmonary e dimitri or viral infection. The heart is mildly enlarged. Right PICC line has tip in the SVC.
--- NOTE | 2021-11-08 14:44 | P.PN ---
Date of Service: 11/08/21 Subjective Subjective: Pt continues to improve. Patient denies any new complaints. Physical Examination - Vital Signs reviewed - Physical Exam General: Alert, Oriented x3 Respiratory: Normal air movement Cardiovascular: Regular rate/rhythm, Normal S1 S2 Gastrointestinal: Soft and benign Musculoskeletal: No swelling Integumentary: No breakdown Neurological: Normal speech Assessment & Plan - Problems (Diagnosis) (1) AMS (altered mental status) Current Visit: Yes Status: Acute (2) Acute on chronic renal failure Current Visit: No Status: Acute (3) Atrial fibrillation Onset Date: 08/14/17 Current Visit: No Status: Acute (4) COPD (chronic obstructive pulmonary disease) Onset Date: 08/14/17 Current Visit: No Status: Acute (5) History of pulmonary embolism Current Visit: No Status: Acute (6) CHF (congestive heart failure) Current Visit: No Status: Chronic (7) Obesity Current Visit: No Status: Chronic (8) Hypokalemia Current Visit: Yes Status: Acute (9) Metabolic alkalosis Current Visit: Yes Status: Acute Plan: BacteremiaFinish vanc x 4 more days A. fib -is rate controlled now. Since no plan for intervention, we will continue Coumadin with Lovenox bridge. UTI/renal cystwith E. coli, on Levaquin. Repeat CT scan or MRI as an outpatient in 3 to 6 months Obesityweight loss advised. Sacral rashlikely dermatitis with pressure sacral decubitus ulcer. Continue off loading. Metabolic encephalopathyresolved. Astheniacontinue PT/OT. Dispositionstatus post placed PICC line, unable to be accepted at SNF due to indigent status Time Spent Managing PTS Care (In Minutes): 35 Physician Review: Patient Assessed, Agree with Above Assessment and Plan
[2021-11-08] MEDS ORDERED: ALPRAZOLAM 0.5 MG TABLET PO ONE (15:00)
[2021-11-08] MEDS: ATORVASTATIN 40 MG TAB PO SCH (21:45)
[2021-11-09 06:00] LABS: Absolute Lymphocytes (CBC) 0.8 K/uL (0.7-4.9); Hematocrit 44.3 % (36.0-45.0); Lymphocytes % 20.3 % (15.3-44.8); MPV 9.6 fL (7.6-11.3); RBC Red Blood Cell Count 4.12 M/uL (3.86-4.86)
[2021-11-09 06:06] LABS: MCV 107.5 fL (80-100)
[2021-11-09 06:24] LABS: Potassium 4.7 mmol/L (3.5-5.1)
[2021-11-09] MEDS: INSULIN -REGULAR HUMAN 50 UNIT/0.5 ML ML SQ SCH ×4 (07:30→21:00)
[2021-11-09] MEDS: FUROSEMIDE 20 MG TABLET PO SCH (09:00)
[2021-11-09] MEDS: APIXABAN 5 MG TABLET PO SCH ×2 (09:04→23:12)
[2021-11-09] MEDS: POTASSIUM CL SA 10 MEQ TAB PO SCH ×2 (09:04→23:13)
[2021-11-09] MEDS: ASPIRIN EC 81 MG TAB PO SCH (09:04)
[2021-11-09] MEDS: ALPRAZOLAM 0.5 MG TABLET PO SCH ×2 (09:05→23:13)
[2021-11-09] MEDS: BUPROPRION HCL S.R. 150MG TAB PO SCH ×2 (09:05→23:13)
[2021-11-09] MEDS: VANCOMYCIN 1.75 GM in NA CHLORIDE 0.9% 500 ML IVPB SCH (09:11)
[2021-11-09] MEDS: NYSTATIN 100MU/GM CREAM 15GM TOP SCH ×2 (09:12→23:14)
[2021-11-09] MEDS: MIDODRINE HCL 5 MG TABLET PO SCH ×3 (09:21→23:12)
[2021-11-09] MEDS: GABAPENTIN 300 MG CAP PO SCH ×2 (09:22→23:12)
[2021-11-09] MEDS: ATORVASTATIN 40 MG TAB PO SCH (23:13)
[2021-11-10] MEDS: INSULIN -REGULAR HUMAN 50 UNIT/0.5 ML ML SQ SCH ×4 (07:30→21:02)
[2021-11-10] MEDS: POTASSIUM CL SA 10 MEQ TAB PO SCH ×2 (08:52→21:01)
[2021-11-10] MEDS: GABAPENTIN 300 MG CAP PO SCH ×2 (08:52→21:02)
[2021-11-10] MEDS: APIXABAN 5 MG TABLET PO SCH ×2 (08:52→21:01)
[2021-11-10] MEDS: ASPIRIN EC 81 MG TAB PO SCH (08:52)
[2021-11-10] MEDS: BUPROPRION HCL S.R. 150MG TAB PO SCH ×2 (08:52→21:03)
[2021-11-10] MEDS: MIDODRINE HCL 5 MG TABLET PO SCH ×3 (08:53→21:01)
[2021-11-10] MEDS: ALPRAZOLAM 0.5 MG TABLET PO SCH ×2 (08:53→21:00)
[2021-11-10] MEDS: FUROSEMIDE 20 MG TABLET PO SCH (08:53)
[2021-11-10] MEDS: NYSTATIN 100MU/GM CREAM 15GM TOP SCH ×2 (08:53→21:04)
[2021-11-10] MEDS: VANCOMYCIN 1.75 GM in NA CHLORIDE 0.9% 500 ML IVPB SCH (09:57)
[2021-11-10] MEDS: ACETAMINOPHEN 500 MG TAB PO PRN (10:01)
--- NOTE | 2021-11-10 13:30 | P.PN ---
Date of Service: 11/09/21 Subjective Subjective: Patient denies any new complaints. Physical Examination - Vital Signs reviewed - Physical Exam General: Alert, Oriented x3 Respiratory: Normal air movement Cardiovascular: Regular rate/rhythm, Normal S1 S2 Gastrointestinal: Soft and benign Assessment & Plan - Problems (Diagnosis) (1) AMS (altered mental status) Current Visit: Yes Status: Acute (2) Acute on chronic renal failure Current Visit: No Status: Acute (3) Atrial fibrillation Onset Date: 08/14/17 Current Visit: No Status: Acute (4) COPD (chronic obstructive pulmonary disease) Onset Date: 08/14/17 Current Visit: No Status: Acute (5) History of pulmonary embolism Current Visit: No Status: Acute (6) CHF (congestive heart failure) Current Visit: No Status: Chronic (7) Obesity Current Visit: No Status: Chronic (8) Hypokalemia Current Visit: Yes Status: Acute (9) Metabolic alkalosis Current Visit: Yes Status: Acute Plan: BacteremiaFinish vanc x 3 more days A. fib -is rate controlled now. Since no plan for intervention, we will continue Coumadin with Lovenox bridge. UTI/renal cystwith E. coli, on Levaquin. Repeat CT scan or MRI as an outpatient in 3 to 6 months Obesityweight loss advised. Sacral rashlikely dermatitis with pressure sacral decubitus ulcer. Continue off loading. Metabolic encephalopathyresolved. Astheniacontinue PT/OT. Dispositionstatus post placed PICC line, unable to be accepted at SNF due to indigent status Time Spent Managing PTS Care (In Minutes): 35 Physician Review: Patient Assessed, Agree with Above Assessment and Plan
--- NOTE | 2021-11-10 13:30 | P.PN ---
Date of Service: 11/10/21 Subjective Subjective: Patient denies any new complaints. Physical Examination - Vital Signs reviewed - Physical Exam General: Alert, Oriented x3 Respiratory: Normal air movement Cardiovascular: Regular rate/rhythm, Normal S1 S2 Gastrointestinal: Soft and benign Assessment & Plan - Problems (Diagnosis) (1) AMS (altered mental status) Current Visit: Yes Status: Acute (2) Acute on chronic renal failure Current Visit: No Status: Acute (3) Atrial fibrillation Onset Date: 08/14/17 Current Visit: No Status: Acute (4) COPD (chronic obstructive pulmonary disease) Onset Date: 08/14/17 Current Visit: No Status: Acute (5) History of pulmonary embolism Current Visit: No Status: Acute (6) CHF (congestive heart failure) Current Visit: No Status: Chronic (7) Obesity Current Visit: No Status: Chronic (8) Hypokalemia Current Visit: Yes Status: Acute (9) Metabolic alkalosis Current Visit: Yes Status: Acute Plan: BacteremiaFinish vanc x 2 more days A. fib -is rate controlled now. Since no plan for intervention, we will continue Coumadin with Lovenox bridge. UTI/renal cystwith E. coli, on Levaquin. Repeat CT scan or MRI as an outpatient in 3 to 6 months Obesityweight loss advised. Sacral rashlikely dermatitis with pressure sacral decubitus ulcer. Continue off loading. Metabolic encephalopathyresolved. Astheniacontinue PT/OT. Dispositionstatus post placed PICC line, unable to be accepted at SNF due to indigent status Time Spent Managing PTS Care (In Minutes): 35 Physician Review: Patient Assessed, Agree with Above Assessment and Plan
[2021-11-10] MEDS: ATORVASTATIN 40 MG TAB PO SCH (21:01)
[2021-11-11 07:16] LABS: Absolute Lymphocytes (CBC) 0.8 K/uL (0.7-4.9); Hematocrit 45.7 % (36.0-45.0); Lymphocytes % 19.9 % (15.3-44.8); MCV 107.5 fL (80-100); MPV 9.3 fL (7.6-11.3); RBC Red Blood Cell Count 4.25 M/uL (3.86-4.86)
[2021-11-11 07:28] LABS: Potassium 4.7 mmol/L (3.5-5.1)
[2021-11-11] MEDS: INSULIN -REGULAR HUMAN 50 UNIT/0.5 ML ML SQ SCH ×3 (07:30→16:12)
[2021-11-11] MEDS: ALPRAZOLAM 0.5 MG TABLET PO SCH (09:08)
[2021-11-11] MEDS: BUPROPRION HCL S.R. 150MG TAB PO SCH (09:08)
[2021-11-11] MEDS: GABAPENTIN 300 MG CAP PO SCH (09:08)
[2021-11-11] MEDS: POTASSIUM CL SA 10 MEQ TAB PO SCH (09:08)
[2021-11-11] MEDS: ASPIRIN EC 81 MG TAB PO SCH (09:08)
[2021-11-11] MEDS: FUROSEMIDE 20 MG TABLET PO SCH (09:08)
[2021-11-11] MEDS: APIXABAN 5 MG TABLET PO SCH (09:08)
[2021-11-11] MEDS: MIDODRINE HCL 5 MG TABLET PO SCH ×2 (09:08→13:36)
[2021-11-11] MEDS: NYSTATIN 100MU/GM CREAM 15GM TOP SCH (09:09)
[2021-11-11] MEDS: VANCOMYCIN 1.75 GM in NA CHLORIDE 0.9% 500 ML IVPB SCH (09:09)
[2021-11-11 09:32] VITALS: O2SAT 92
--- NOTE | 2021-11-11 15:08 | P.DS ---
Discharge Date: 11/11/21 Disposition: ROUTINE DISCHARGE Discharge Condition: GOOD Reason for Admission: Altered mental status Consultations: Infectious disease - Problems (1) AMS (altered mental status) Current Visit: Yes Status: Acute (2) Acute on chronic renal failure Current Visit: No Status: Acute Qualifiers: (3) Atrial fibrillation Onset Date: 08/14/17 Current Visit: No Status: Acute Qualifiers: (4) COPD (chronic obstructive pulmonary disease) Onset Date: 08/14/17 Current Visit: No Status: Acute Qualifiers: (5) History of pulmonary embolism Current Visit: No Status: Acute (6) CHF (congestive heart failure) Current Visit: No Status: Chronic Qualifiers: (7) Obesity Current Visit: No Status: Chronic Qualifiers: (8) Hypokalemia Current Visit: Yes Status: Acute (9) Metabolic alkalosis Current Visit: Yes Status: Acute Brief History of Present Illness: patient is a 50-year-old female came to the hospital with confusion. Patient had was not responding and is very lethargic. She is morbidly obese and she has multiple cardiac issues. Patient was found have urinary tract infection. Her mentation is altered. She also is slightly dehydrated. She was started on IV fluids and IV antibiotics. She is very lethargic and concern for her protecting her airway. Decision was made to admit her to the ICU for further treatment. Hospital Course: Patient has done well during hospital stay. Patient has completed antibiotic c ourse. Patient is clinically feeling better. At this time, patient is doing well and patient is stable for discharge with outpatient follow-up. Vital Signs/Physical Exam: Temp Pulse Resp BP Pulse Ox 96.7 F L 63 16 85/57 L 74 L 11/11/21 12:00 11/11/21 12:00 11/11/21 12:00 11/11/21 12:00 11/11/21 12:00 General: Alert, In no apparent distress, Oriented x3 Laboratory Data at Discharge: WBC 4.0 K/uL (4.3-10.9) L 11/11/21 06:47 Hgb 14.7 g/dL (12.0-15.0) 11/11/21 06:47 Hct 45.7 % (36.0-45.0) H 11/11/21 06:47 Plt Count 110 K/uL (152-406) L 11/11/21 06:47 PT 12.6 SECONDS (9.5-12.5) H 10/27/21 03:55 INR 1.14 10/27/21 03:55 APTT 28.6 SECONDS (24.3-36.9) 10/27/21 03:55 Sodium 141 mmol/L (136-145) 11/11/21 06:47 Potassium 4.7 mmol/L (3.5-5.1) 11/11/21 06:47 BUN 13 mg/dL (7-18) 11/11/21 06:47 Creatinine 0.89 mg/dL (0.55-1.3) 11/11/21 06:47 Glucose 120 mg/dL (74-106) H 11/11/21 06:47 Magnesium 2.1 mg/dL (1.8-2.4) 10/29/21 04:57 Total Bilirubin 0.4 mg/dL (0.2-1.0) 10/28/21 04:43 AST 67 U/L (15-37) H 10/28/21 04:43 ALT 50 U/L (12-78) 10/28/21 04:43 Alkaline Phosphatase 79 U/L (45-117) 10/28/21 04:43 Home Medications: ALPRAZolam [Alprazolam] 1 mg PO BID 06/04/21 Nitroglycerin 0.4 mg SL PRN 06/04/21 Atorvastatin Calcium [Lipitor] 40 mg PO BEDTIME #30 tab 06/10/21 buPROPion HCL [Bupropion HCl Sr] 150 mg PO Q12H 06/22/21 Furosemide [Lasix] 20 mg PO DAILY #30 tablet 06/30/21 Apixaban [Eliquis] 5 mg PO BID #60 tablet 07/08/21 Aspirin [Aspirin EC] 81 mg PO DAILY 10/27/21 Gabapentin 300 mg PO BID 10/27/21 Midodrine HCl [Proamatine*] 10 mg PO TID #60 tab 11/11/21 New Medications: Midodrine HCl [Proamatine*] 10 mg PO TID #60 tab Physician Discharge Instructions: -DC IV and DC home -Follow-up with PCP in 1 to 2 weeks -Follow-up with Cardiology in 1 to 2 weeks -Please call Dr. Dietrich at [phone] if any questions regarding hospital stay -Please call nursing station at [phone] if any nursing or medication questions -Return to the emergency room if symptoms worsen Diet: AHA Activity: Fall precautions Followup: Justin Real MD [ACTIVE - CAN ADMIT] - 1-2 Weeks (Call for appointment.) Randall Luciano [Primary Care Provider] - 1-2 Weeks (Call for appointment.) Time spent managing pt's care (in minutes): 35
[2021-11-11 15:52] VITALS: TEMP 96.8
[2021-11-11 15:57] VITALS: BP 102/62
[2021-11-12] MEDS ORDERED: VANCOMYCIN 1.75 GM in NA CHLORIDE 0.9% 500 ML IVPB SCH (09:00)
== END 2021-11-11 17:44 | disposition home or self-care (01) | DRG 871 ==
LOC: ER 01:45 → ERHOLD 09:10 → 3RD-ICU 15:09 → 4TH 10-30 18:00
PROVIDERS: ADMIT Hospitalist; ATTEND Hospitalist
PROC: 02HV33Z Insertion of Infusion Device into Superior Vena Cava, Percutaneous Approach (ICD-10-PCS; principal; 2021-10-30)
PROC: 3E04329 Introduction of Other Anti-infective into Central Vein, Percutaneous Approach (ICD-10-PCS; 2021-10-30)
DX: A41.9 Sepsis, unspecified organism (principal); G93.41 Metabolic encephalopathy; R65.21 Severe sepsis with septic shock; N39.0 Urinary tract infection, site not specified; I13.0 Hypertensive heart and chronic kidney disease with heart failure and stage 1 through stage 4 chronic kidney disease, or unspecified chronic kidney disease; I50.22 Chronic systolic (congestive) heart failure; E66.01 Morbid (severe) obesity due to excess calories; Z68.39 Body mass index [BMI] 39.0-39.9, adult; E86.0 Dehydration; E11.9 Type 2 diabetes mellitus without complications; I25.10 Atherosclerotic heart disease of native coronary artery without angina pectoris; F41.9 Anxiety disorder, unspecified; E78.5 Hyperlipidemia, unspecified; E87.6 Hypokalemia; B96.20 Unspecified Escherichia coli [E. coli] as the cause of diseases classified elsewhere; I48.91 Unspecified atrial fibrillation; B95.7 Other staphylococcus as the cause of diseases classified elsewhere; B07.8 Other viral warts; K02.9 Dental caries, unspecified; D72.819 Decreased white blood cell count, unspecified; D69.6 Thrombocytopenia, unspecified; R06.03 Acute respiratory distress; J44.9 Chronic obstructive pulmonary disease, unspecified; R53.1 Weakness; L89.152 Pressure ulcer of sacral region, stage 2; N18.9 Chronic kidney disease, unspecified; T17.908A Unspecified foreign body in respiratory tract, part unspecified causing other injury, initial encounter; X58.XXXA Exposure to other specified factors, initial encounter; Y92.230 Patient room in hospital as the place of occurrence of the external cause; N28.1 Cyst of kidney, acquired; F17.210 Nicotine dependence, cigarettes, uncomplicated; L30.9 Dermatitis, unspecified; Z86.711 Personal history of pulmonary embolism; Z20.822 Contact with and (suspected) exposure to COVID-19
CPT/HCPCS: 36415; 36569; 70450; 71045; 71046; 71250; 72125; 74177; 80048; 80053; 80202; 81003; 81015; 82550; 82805; 82947; 83605; 83735; 83880; 84132; 84145; 85025; 85610; 85730; 87040; 87077; 87086; 87088; 87186; 87205; 93005; 93306; 96361; 96374; 96375; 97110; 97116; 97161; 97530; 99284; J0692; J1815; J2405; J3370; J3480; J7030; J7040; J7050; Q9967; U0003

== ENCOUNTER 2022-01-20 11:43 | Inpatient (IN) | payer SELFPAY ==
[2022-01-20 12:16] LABS: Absolute Lymphocytes (CBC) 0.7 K/uL (0.7-4.9); Hematocrit 48.3 % (36.0-45.0); Lymphocytes % 11.8 % (15.3-44.8); MCV 104.5 fL (80-100); MPV 8.6 fL (7.6-11.3); RBC Red Blood Cell Count 4.62 M/uL (3.86-4.86)
--- NOTE | 2022-01-20 12:43 | RAD REPORT ---
EXAM DESCRIPTION: RAD - Chest Single View - 01/20/2022 12:32 pm CLINICAL HISTORY: CHEST PAIN Chest pain. COMPARISON: Chest Pa And Lat (2 Views) dated 11/08/2021; Chest Single View dated 11/03/2021; Chest Sin gle View dated 10/30/2021; Chest Single View dated 10/27/2021 FINDINGS: Portable technique limits examination quality. Mild interstitial pulmonary edema. Trace pleural effusions. The heart is moderately enlarged. No disp laced fractures. IMPRESSION: Mild CHF.
[2022-01-20 13:12] LABS: Potassium 4.2 mmol/L (3.5-5.1); Troponin High Sensitivity 5.3 pg/mL (<58.9)
--- NOTE | 2022-01-20 14:54 | RAD REPORT ---
EXAM DESCRIPTION: CTAbdomen Pelvis W Contrast - 01/20/2022 2:43 pm CLINICAL HISTORY: Abdominal pain. dsf COMPARISON: Abdomen Pelvis W Contrast dated 11/07/2021; Abdomen Pelvis W Contrast dated 06/03/2021 ; Chest Single View dated 11/03/2021 TECHNIQUE: Biphasic CT imaging of the abdomen and pelvis was performed with 100 ml non-ionic IV cont rast. All CT scans are performed using dose optimization technique as appropriate and may include automated exposure control or mA/KV adjustment according to patient size. FINDINGS: Bibasilar lung opacities are present in both lung bases, greater on the right. This may be infiltrate/pneumonia. The liver, spleen, pancreas, adrenal glands are within normal limits. Multiple bilateral renal cystic lesions are seen. No solid mass or hydronephrosis. No bowel obstruction, free air, free fluid or abscess. The appendix is normal. No evidence of signi ficant lymphadenopathy. No suspicious bony findings. IMPRESSION: No acute intra-abdominal or pelvic finding. Bibasilar lung opacities, greater on the right, could be infiltrate/ pneumonia.
[2022-01-20 14:55] LABS: SARS-CoV-2 Antigen Rapid Res Negative (Negative)
--- NOTE | 2022-01-20 16:15 | ER ---
Nurse's Notes [facility] Name: Raiza Whaley Age: 51 yrs Sex: Female : 1970 Arrival Date: 01/20/2022 Time: 11:47 Bed 18 Private MD: Diagnosis: Chest pain, unspecified Presentation: 01/20 11:50 Chief complaint: Patient states: Chest pain that began 2.5 hours ago. Pt self ss administered Nitro x 3 prior to EMS arrival. EMS administered ASA 324 mg chewable tablets en route to ED. Pt states she has been out of all over her home medications for a few weeks, and cannot get them filled until January 29. Coronavirus screen: Client denies travel out of the [place] in the last 14 days. Ebola Screen: Patient denies exposure to infectious person. No symptoms or risks identified at this time. Initial Sepsis Screen: Does the patient meet any 2 criteria? RR > 20 per min. HR > 90 bpm. Does the patient have a suspected source of infection? No. Patient's initial sepsis screen is negative. Risk Assessment: Do you want to hurt yourself or someone else? Patient reports no desire to harm self or others. Onset of symptoms was January 20, 2022. Care prior to arrival: IV initiated. 20 GA, in the left forearm. 11:50 Method Of Arrival: EMS: [facility] 11:50 Acuity: PATRIZIA 2 ss DEAN OF WOMEN: 20:43 LMP N/A - Post-menopause bm7 Historical: - Allergies: 11:53 Neosporin ([id number]); ss - PMHx: 11:53 acute renal failure; Myocardial infarction; Hypertension; Endometrosis; Diabetes - ss IDDM; COPD; CHF; blood clots in lungs; Atrial Fib; Anxiety; Pneumonia; Rhabdo; - PSHx: 11:53 Biopsies for HPV; Expoloratory surgery for stomach adhesions; ss - Immunization history:: Client reports having NOT received the Covid vaccine. - Social history:: Smoking status: Patient reports the use of cigarette tobacco products, 3 cig/ day. "I'm trying to quit" patient states. . Screenin:01 Abuse screen: Denies threats or abuse. Nutritional screening: No deficits noted. bm7 Tuberculosis screening: No symptoms or risk factors identified. Fall Risk None identified. Assessment: 13:01 Reassessment: No changes from previously documented assessment. Patient and/or family bm7 updated on plan of care and expected duration. Pain level reassessed. Patient is alert, oriented x 3, equal unlabored respirations, skin warm/dry/pink. 15:34 Reassessment: Patient and/or family updated on plan of care and expected duration. Pain bm7 level reassessed. Patient is alert, oriented x 3, equal unlabored respirations, skin warm/dry/pink. 19:31 General: Appears in no apparent distress. comfortable, unkempt, Behavior is calm, bm7 cooperative, Smells of FECES AND URINE . Pain: Complains of pain in abdomen Pain does not radiate. Pain began gradually. Neuro: Sams Agitation-Sedation Scale (RASS): -1 Drowsy Level of Consciousness is awake, Oriented to person, place, time, situation. Cardiovascular: Reports chest pain, Heart tones S1 S2 present Capillary refill < 3 seconds Patient's skin is warm and dry. Rhythm is sinus rhythm Chest pain is described as vague. Respiratory: No deficits noted. Denies cough, shortness of breath. GI: Abdomen is round non-distended, Bowel sounds present X 4 quads. Abd is soft and non tender X 4 quads. Reports nausea. : PURE WICK CATHETER APPLIED. EENT: Oral mucosa is dry. Derm: No deficits noted. No signs and/or symptoms reported regarding the dermatologic system. Musculoskeletal: No deficits noted. No signs and/or symptoms reported regarding the musculoskeletal system. Vital Signs: 11:50 BP 109 / 73; Pulse 99; Resp 22; Temp 98.3(O); Pulse Ox 90% on R/A; Weight 90.72 kg; ss Height 5 ft. 6 in. (167.64 cm); Pain 9/10; 13:01 BP 117 / 70; Pulse 94; Resp 16; Pulse Ox 99% on 2 lpm NC; bm7 15:34 BP 128 / 86; Pulse 82; Resp 18; Pulse Ox 99% on R/A; bm7 17:26 BP 100 / 72; Pulse 80; Resp 16; Pulse Ox 100% on 2 lpm NC; bm7 19:31 BP 100 / 67; Pulse 80; Resp 16; Pulse Ox 100% on R/A; bm7 20:43 BP 101 / 73; Pulse 80; Resp 16; Pulse Ox 100% on 2 lpm NC; bm7 11:50 Body Mass Index 32.28 (90.72 kg, 167.64 cm) ED Course: 11:47 Patient arrived in ED. eb 11:51 Maryanne Vargas, RN is Primary Nurse. ko1 11:53 Triage completed. ss 11:53 Arm band placed on right wrist. ss 11:56 Cayetano Humphreys is PHCP. jl9 11:56 Bhupinder Cortez MD is Attending Physician. jl9 12:01 EKG done, by ED staff, reviewed by Cayetano Humphreys. dh3 12:09 Basic Metabolic Panel Sent. ko1 12:09 CBC with Diff Sent. ko1 12:09 Troponin HS Sent. ko1 12:34 XRAY Chest (1 view) In Process Unspecified. EDMS 13:01 Patient has correct armband on for positive identification. Placed in gown. Bed in low bm7 position. Call light in reach. Side rails up X2. Client placed on continuous cardiac and pulse oximetry monitoring. NIBP monitoring applied. cardiac monitor technician on. 13:01 Maintain EMS IV. Dressing intact. Good blood return noted. Site clean \\T\\ dry. Gauge \\T\\ bm 7 site: 20g LAC. Oxygen administration via nasal cannula \\T\\ 2L/min Response to oxygen therapy: symptoms improved. 14:18 COVID swab sent to lab. bm7 14:45 CT Abd/Pelvis - IV Contrast Only In Process Unspecified. EDMS 14:[address]. bm7 15:34 Lab(s) recollected, by me, sent to lab. Inserted saline lock: 22 gauge in right bm7 antecubital area, using aseptic technique. Blood collected. IV discontinued, intact, bleeding controlled, No redness/swelling at site. Pressure dressing applied. 16:14 Stevan Valerio is Hospitalizing Provider. jl9 20:22 No apparent distress. Resting quietly. Awaiting bed assignment. bm7 20:22 Door closed. Noise minimized. Lights dimmed. Warm blanket given. bm7 20:22 No provider procedures requiring assistance completed. bm7 Administered Medications: 15:32 Drug: Lasix (furosemide) 40 mg Route: IVP; Site: right antecubital; bm7 17:26 Follow up: Response: No adverse reaction bm7 17:18 Drug: [place] (HYDROcodone-acetaminophen) 10 mg-325 mg 1 tabs Route: PO; bm7 20:22 Follow up: Response: Pain is decreased bm7 Medication: 13:01 VIS not applicable for this client. bm7 Outcome: 16:14 Decision to Hospitalize by Provider. [email or web address] 21:08 Admitted to Tele accompanied by tech, family with patient, via stretcher, room 427, bm7 with oxygen, with chart. 21:08 Condition: improved 21:08 Discharge instructions given to patient, family, Instructed on the need for admit, Demonstrated understanding of 21:09 Patient left the ED. bm7 Signatures: Dispatcher [employer] EDMS Tabitha Wilhelm RN RN Dalila Sanon 3 Rylee Limon Brittany, RN RN bm7 Cayetano Humphreys jl9 Maryanne Vargas RN RN ko1
--- NOTE | 2022-01-20 16:15 | EDPHYS ---
Physician Documentation [facility] Name: Raiza Whaley Age: 51 yrs Sex: Female : 1970 Arrival Date: 01/20/2022 Time: 11:47 Bed 18 Private MD: RAYSHAWN Physician Bhupinder Cortez HPI: 01/20 12:02 This 51 yrs old Female presents to ER via EMS with complaints of chest pain jl9 that started this morning when she was at home. Patient took NTG at home. . 12:02 The patient or guardian reports chest pain that is located primarily in the anterior jl9 chest wall, left. Onset: 3 hour(s) ago. The pain does not radiate. Associated signs and symptoms: The patient has no apparent associated signs or symptoms. The chest pain is described as sharp. Duration: The patient or guardian reports a single episode. Duration: The patient or guardian reports a single episode, that is now resolved. Modifying factors: The symptoms are alleviated by. The patient has experienced similar episodes in the past. PROGRAM MGR: 20:43 LMP N/A - Post-menopause bm7 Historical: - Allergies: 11:53 Neosporin ([id number]); ss - PMHx: 11:53 acute renal failure; Myocardial infarction; Hypertension; Endometrosis; Diabetes - ss IDDM; COPD; CHF; blood clots in lungs; Atrial Fib; Anxiety; Pneumonia; Rhabdo; - PSHx: 11:53 Biopsies for HPV; Expoloratory surgery for stomach adhesions; ss - Immunization history:: Client reports having NOT received the Covid vaccine. - Social history:: Smoking status: Patient reports the use of cigarette tobacco products, 3 cig/ day. "I'm trying to quit" patient states. . ROS: 12:03 Constitutional: Negative for fever, chills, and weight loss, Eyes: Negative for injury, jl9 pain, redness, and discharge, ENT: Negative for injury, pain, and discharge, Neck: Negative for injury, pain, and swelling. 12:03 Respiratory: Negative for shortness of breath, cough, wheezing, and pleuritic chest pain, Abdomen/GI: Negative for abdominal pain, nausea, vomiting, diarrhea, and constipation, Back: Negative for injury and pain, : Negative for injury, bleeding, discharge, and swelling, MS/Extremity: Negative for injury and deformity, Skin: Negative for injury, rash, and discoloration, Neuro: Negative for headache, weakness, numbness, tingling, and seizure, Psych: Negative for depression, anxiety, suicide ideation, homicidal ideation, and hallucinations, Allergy/Immunology: Negative for hives, rash, and allergies, Endocrine: Negative for neck swelling, polydipsia, polyuria, polyphagia, and marked weight changes, Hematologic/Lymphatic: Negative for swollen nodes, abnormal bleeding, and unusual bruising. 12:03 Cardiovascular: Positive for chest pain. Exam: 12:03 Constitutional: This is a well developed, well nourished patient who is awake, alert, jl9 and in no acute distress. Head/Face: Normocephalic, atraumatic. Eyes: Pupils equal round and reactive to light, extra-ocular motions intact. Lids and lashes normal. Conjunctiva and sclera are non-icteric and not injected. Cornea within normal limits. Periorbital areas with no swelling, redness, or edema. ENT: Mucous membranes moist. Neck: Trachea midline, no thyromegaly or masses palpated, and no cervical lymphadenopathy. Supple, full range of motion without nuchal rigidity, or vertebral point tenderness. No Meningismus. Chest/axilla: Normal chest wall appearance and motion. Nontender with no deformity. No lesions are appreciated. Cardiovascular: Regular rate and rhythm with a normal S1 and S2. No gallops, murmurs, or rubs. Normal PMI, no JVD. No pulse deficits. Respiratory: Lungs have equal breath sounds bilaterally, clear to auscultation and percussion. No rales, rhonchi or wheezes noted. No increased work of breathing, no retractions or nasal flaring. Abdomen/GI: Soft, non-tender, with normal bowel sounds. No distension or tympany. No guarding or rebound. No evidence of tenderness throughout. Back: No spinal tenderness. No costovertebral tenderness. Full range of motion. Skin: Warm, dry with normal turgor. Normal color with no rashes, no lesions, and no evidence of cellulitis. MS/ Extremity: Pulses equal, no cyanosis. Neurovascular intact. Full, normal range of motion. Neuro: Awake and alert, GCS 15, oriented to person, place, time, and situation. Cranial nerves II-XII grossly intact. Motor strength 5/5 in all extremities. Sensory grossly intact. Cerebellar exam normal. Normal gait. Psych: Awake, alert, with orientation to person, place and time. Behavior, mood, and affect are within normal limits. Vital Signs: 11:50 BP 109 / 73; Pulse 99; Resp 22; Temp 98.3(O); Pulse Ox 90% on R/A; Weight 90.72 kg; ss Height 5 ft. 6 in. (167.64 cm); Pain 9/10; 13:01 BP 117 / 70; Pulse 94; Resp 16; Pulse Ox 99% on 2 lpm NC; bm7 15:34 BP 128 / 86; Pulse 82; Resp 18; Pulse Ox 99% on R/A; bm7 17:26 BP 100 / 72; Pulse 80; Resp 16; Pulse Ox 100% on 2 lpm NC; bm7 19:31 BP 100 / 67; Pulse 80; Resp 16; Pulse Ox 100% on R/A; bm7 20:43 BP 101 / 73; Pulse 80; Resp 16; Pulse Ox 100% on 2 lpm NC; bm7 11:50 Body Mass Index 32.28 (90.72 kg, 167.64 cm) ss MDM: 11:50 Test interpretation: by ED physician or midlevel provider: ECG, NSR. 9 11:56 Patient medically screened. jl9 12:03 Data reviewed: vital signs, nurses notes. 9 16:13 Counseling: I had a detailed discussion with the patient and/or guardian regarding: the 9 historical points, exam findings, and any diagnostic results supporting the discharge/admit diagnosis, lab results, radiology results, the need for further work-up and treatment in the hospital. 01/20 11:50 Order name: Basic Metabolic Panel; Complete Time: 13:16 01/20 11:50 Order name: CBC with Diff; Complete Time: 12:46 01/20 11:50 Order name: Troponin HS; Complete Time: 13:16 01/20 11:56 Order name: SARS RAPID; Complete Time: 14:56 01/20 14:11 Order name: Urinalysis 01/20 14:56 Order name: BNP 01/20 11:50 Order name: XRAY Chest (1 view); Complete Time: 12:46 01/20 11:50 Order name: EKG; Complete Time: 11:51 ss 01/20 11:50 Order name: Cardiac monitoring; Complete Time: 11:52 ss 01/20 11:50 Order name: EKG - Nurse/Tech; Complete Time: 11:51 ss 01/20 14:02 Order name: CT Abd/Pelvis - IV Contrast Only; Complete Time: 14:56 jl9 01/20 17:01 Order name: Urine Dipstick-Ancillary; Complete Time: 19:09 EDMS 01/20 11:50 Order name: IV Saline Lock; Complete Time: 11:51 ss 01/20 11:50 Order name: Labs collected and sent; Complete Time: 12:09 ss 01/20 11:50 Order name: O2 Per Protocol; Complete Time: 11:51 01/20 11:50 Order name: O2 Sat Monitoring; Complete Time: 11:51 ss 01/20 12:19 Order name: Labs - recollect needed: recollect GREEN TOP only; Complete Time: 12:34 ss Administered Medications: 15:32 Drug: Lasix (furosemide) 40 mg Route: IVP; Site: right antecubital; bm7 17:26 Follow up: Response: No adverse reaction bm7 17:18 Drug: [place] (HYDROcodone-acetaminophen) 10 mg-325 mg 1 tabs Route: PO; bm7 20:22 Follow up: Response: Pain is decreased bm7 Disposition Summary: 01/20/22 16:14 Hospitalization Ordered Hospitalization Status: Inpatient Admission jl9 Provider: Stevan Valerio Location: Telemetry/MedSurg (Inpatient) 9 Condition: Fair jl9 Problem: new jl9 Symptoms: have improved jl9 Bed/Room Type: Standard [facility] Room Assignment: 427(01/20/22 20:06) mw Diagnosis - Chest pain, unspecified jl9 Forms: - Medication Reconciliation Form jl9 - SBAR form jl9 Signatures: Dispatcher [employer] EDIN Shara Aguero RN RN Tabitha Gutierrez RN RN ss McCarthy, Brittany, RN RN bmSherly Altamirano PA PA sb3 Linares, John jl9 Corrections: (The following items were deleted from the chart) 20:06 16:14 9 shashank
[2022-01-20 17:01] LABS: Urine Blood Negative (Negative); Urine Glucose Negative (Negative); Urine Protein Negative (Negative); Urine Specific Gravity 1.015 (1.005-1.030); Urine pH 6.5 (5.0-7.0)
[2022-01-20 17:17] LABS: Specific Gravity 1.013 (1.005-1.030); Urine Bilirubin NEGATIVE (Negative); Urine Blood Negative (Negative); Urine Clarity Clear (Clear); Urine Color Colorless (Yellow); Urine Glucose NEGATIVE (Negative); Urine Protein NEGATIVE (Negative); Urine Urobilinogen Normal (Normal); Urine pH 6.5 (5.0-7.0)
[2022-01-20] MEDS ORDERED: HYDROCODONE/APAP 10/325 TAB ONE (17:19)
--- NOTE | 2022-01-20 20:00 | P.HP ---
Certification for Inpatient Patient admitted to: Inpatient With expected LOS: >2 Midnights Patient will require the following post-hospital care: None Practitioner: I am a practitioner with admitting privileges, knowledge of patient current condition, hospital course, and medical plan of care. Services: Services provided to patient in accordance with Admission requirements found in Title 42 Section 412.3 of the Code of Federal Regulations <Sherly Cox - Last Filed: 01/20/22 20:36> Patient History Date of Service: 01/20/22 Reason for admission: Chest Pain/CHF History of Present Illness: Patient is a 51-year-old female with history of A. 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 She states that she has been out of her medications for few weeks now. She took 3 nitro and [address] here. chest x-ray showed mild CHF. EKG normal sinus rhythm. Troponin negative. BNP pending. She was initially saturating 90% on RA and is now 100% on 2L. Echo from October 2021 showed normal EF. She was given 40 mg lasix in the ED and is now resting comfortably with no complaints. She is admitted for further evaluation and treatment. Home medications list reviewed: Yes - Past Medical/Surgical History Diabetic: Yes -: Anxiety disorder -: Diabetes mellitus -: CAD -: Hyperlipidemia -: ARF -: CHF -: COPD -: HTN -: Afib -: OK -: adhesion removal -: tubal ligation -: Heart cath Psychosocial/ Personal History: Patient lives at [facility] [place] - Family History Mother -: Lung disease, Cancer Notes: CA and COPD Father -: Diabetes, Stroke - Social History Smoking Status: Current every day smoker Alcohol use: No CD- Drugs: No Caffeine use: No Place of Residence: Home <KennySherly - Last Filed: 01/20/22 20:36> Date of Service: 01/21/22 <Wayne Christianson - Last Filed: 01/21/22 19:05> Allergies bacitracin [From Neosporin ([id number])] Allergy (Verified 10/30/21 06:56) Itching neomycin [From Neosporin ([id number]-yjd-[id number])] Allergy (Verified 10/30/21 06:56) Itching polymyxin B [From Neosporin (wre-baa-[id number])] Allergy (Verified 10/30/21 06:56) Itching Home Medications: ALPRAZolam [Alprazolam] 1 mg PO BID 06/04/21 Nitroglycerin 0.4 mg SL PRN 06/04/21 Atorvastatin Calcium [Lipitor] 40 mg PO BEDTIME #30 tab 06/10/21 buPROPion HCL [Bupropion HCl Sr] 150 mg PO Q12H 06/22/21 Furosemide [Lasix] 20 mg PO DAILY #30 tablet 06/30/21 Apixaban [Eliquis] 5 mg PO BID #60 tablet 07/08/21 Aspirin [Aspirin EC] 81 mg PO DAILY 10/27/21 Gabapentin 300 mg PO BID 10/27/21 Midodrine HCl [Proamatine*] 10 mg PO TID #60 tab 11/11/21 Review of Systems Cardiovascular: Chest Pain <Sherly Cox - Last Filed: 01/20/22 20:36> Physical Examination - Physical Exam General: Alert, In no apparent distress, Obese HEENT: Atraumatic, PERRLA, EOMI, Sclerae nonicteric Neck: Supple, 2+ carotid pulse no bruit, No LAD, Without JVD or thyroid abnormality Respiratory: Clear to auscultation bilaterally, Normal air movement Cardiovascular: Regular rate/rhythm, Normal S1 S2 Gastrointestinal: Normal bowel sounds, No tenderness Musculoskeletal: No tenderness Integumentary: No rashes Neurological: Normal speech, Normal strength at 5/5 x4 extr, Normal tone, Normal affect - Studies Laboratory Data (last 24 hrs) 01/20/22 12:45: Sodium 142, Potassium 4.2, BUN 11, Creatinine 0.98, Glucose 168 H 01/20/22 12:07: WBC 6.20, Hgb 15.9 H, Hct 48.3 H, Plt Count 157 <Sherly Cox - Last Filed: 01/20/22 20:36> Assessment and Plan - Problems (Diagnosis) (1) Chest pain Current Visit: Yes Status: Acute Qualifiers: Chest pain type: unspecified Qualified Code(s): R07.9 - Chest pain, unspecified (2) CHF (congestive heart failure) Current Visit: Yes Status: Chronic Qualifiers: Heart failure type: diastolic Heart failure chronicity: acute on chronic Qualified Code(s): I50.33 - Acute on chronic diastolic (congestive) heart failure (3) Atrial fibrillation Current Visit: Yes Status: Acute Qualifiers: Atrial fibrillation type: paroxysmal Qualified Code(s): I48.0 - Paroxysmal atrial fibrillation (4) COPD (chronic obstructive pulmonary disease) Current Visit: Yes Status: Chronic Qualifiers: COPD type: unspecified COPD Qualified Code(s): J44.9 - Chronic obstructive pulmonary disease, unspecified (5) Hypertension Current Visit: Yes Status: Chronic Qualifiers: Hypertension type: primary hypertension Qualified Code(s): I10 - Essential (primary) hypertension (6) Type 2 diabetes mellitus Current Visit: Yes Status: Acute Qualifiers: Diabetes mellitus filler leaf cutter long insulin use: with filler leaf cutter long use Diabetes mellitus complication status: with kidney complications Diabetes mellitus complication detail: with chronic kidney disease Chronic kidney disease stage: stage 3 (moderate) Chronic kidney disease stage 3 subtype: stage 3a (GFR 45- 59) Qualified Code(s): E11.22 - Type 2 diabetes mellitus with diabetic chronic kidney disease; N18.31 - Chronic kidney disease, stage 3a; Z79.4 - [employer]p [employer] ( current) use of insulin - Plan -Initial troponin negative. Will trend. -BNP pending. Cardiology consult. Echo ordered -IV lasix. Monitor intake and output. 1500 cc/day fluid restriction. Daily weight -Titrate O2. Wean as tolerated. -ACHS accu checks with mild SS insulin and diabetic diet. A1c. -Monitor and replete electrolytes per protocol -Reconcile and continue home medications -Eliquis for VTE ppx -Full code Discharge Plan: Home Plan to discharge in: Greater than 2 days - Advance Directives Does patient have a Living Will: No Does patient have a Durable POA for Healthcare: No - Code Status/Comfort Care Code Status Assessed: Yes (Full) Critical Care: No Time Spent Managing Pts Care (In Minutes): 50 <Sherly Cox - Last Filed: 01/20/22 20:36> Physician Review: Patient Assessed, Agree with Above Assessment and Plan <Wayne Christianson - Last Filed: 01/21/22 19:05>
[2022-01-20] MEDS ORDERED: ACETAMINOPHEN 500 MG TAB PO PRN (20:28)
[2022-01-20] MEDS ORDERED: ONDANSETRON 4 MG/2 ML VIAL IV PRN (20:28)
[2022-01-20] MEDS ORDERED: HYDROCODONE/APAP 7.5/325 MG TAB PO PRN (20:28)
[2022-01-20] MEDS ORDERED: ALBUTEROL 2.5 MG/3 ML NEB SOL NEB PRN (20:28)
[2022-01-20] MEDS: INSULIN -REGULAR HUMAN 50 UNIT/0.5 ML ML SQ SCH (21:00)
[2022-01-20] MEDS ORDERED: APIXABAN 5 MG TABLET PO SCH (21:00)
[2022-01-20] MEDS: BUPROPRION HCL S.R. 150MG TAB PO SCH (23:00)
[2022-01-20] MEDS: ALPRAZOLAM 1 MG TABLET PO SCH (23:34)
[2022-01-20] MEDS: ATORVASTATIN 40 MG TAB PO SCH (23:34)
[2022-01-20] MEDS: GABAPENTIN 300 MG CAP PO SCH (23:34)
[2022-01-20] MEDS: GUAIFENESIN/CODEINE 5ML UCUP PO PRN (23:34)
[2022-01-20] MEDS ORDERED: FUROSEMIDE 20 MG/ 2ML VIAL IV ONE (23:47)
[2022-01-21 00:48] VITALS: BMI 32.3
[2022-01-21 04:23] LABS: Absolute Lymphocytes (CBC) 0.6 K/uL (0.7-4.9); Hematocrit 48.8 % (36.0-45.0); Lymphocytes % 10.8 % (15.3-44.8); MCV 104.2 fL (80-100); MPV 8.1 fL (7.6-11.3); RBC Red Blood Cell Count 4.69 M/uL (3.86-4.86)
[2022-01-21 05:02] LABS: BUN Blood Urea Nitrogen 12 mg/dL (7-18); Bicarbonate 35 mmol/L (21-32); Glomerular Filtration Rate 73 ml/min (=/>90); Glucose Level 140 mg/dL (74-106); HDL Cholesterol 34 mg/dL (40-60); Magnesium 2.3 mg/dL (1.8-2.4); Potassium 4.1 mmol/L (3.5-5.1); Sodium Level 140 mmol/L (136-145); Troponin High Sensitivity 6.6 pg/mL (<58.9)
[2022-01-21 05:19] LABS: LDL, Direct 155 mg/dL (100-129)
[2022-01-21] MEDS: GUAIFENESIN/CODEINE 5ML UCUP PO PRN (06:02)
--- NOTE | 2022-01-21 07:27 | CON ---
Date of Consultation: 01/21/2022 Reason For Consultation: Chest pain. History Of Present Illness: Ms. Whaley is a 51-year-old woman. She has a very complicated past [facility] history. This year in May, she had a normal stress test. In November, she had a normal echocard iogram. She does have a history of chronic renal disease which is stable, history of coronary artery disease, hypertension, diabetes, COPD, chronic diastolic congestive heart failure, pulmonary embolus , anxiety, atrial fibrillation, rhabdomyolysis, endometriosis, and history of pneumonia in the past. She came in with left-sided chest pain, sharp, pleuritic, stabbing, nonradiating. No nausea, vomiti ng, diaphoresis, PND, orthopnea, pedal edema, palpitation, or syncope. Chest x-ray and abdominal CT showed possible infiltrates versus congestive heart failure in the bases of the lung. Troponin is ne gative. BNP is negative. Creatinine is normal. Past Medical History: As stated above. Allergies: SHE IS ALLERGIC TO NEOSPORIN. Review of Systems: Negative. Social History: Negative. Family History: Negative. Medications: Include Eliquis, Lipitor, aspirin, Xanax, Lasix, and midodrine. Physical Examination: General: She did not have any chest pain. Vital Signs: Stable. She is afebrile. HEENT: Negative. Neck: Supple with no bruit. Chest: Revealed some rales both bases. Cardiac: Revealed a regular rhythm and rate with S4 gallops. No murmurs or rubs. Abdomen: Obese, but benign. Extremities: Revealed chronic venous changes with mild edema. Pulses were weak distally bilaterally in the dorsalis pedis and posterior tibial. Neurologic: She seems to be slightly confused. Alert and oriented to name. Skin: Dry and intact. Diagnostic Data: Chest x-ray showed mild CHF. Abdominal CT showed infiltrate in the base of the jeny g versus infection versus edema. Impression And Plan: 1.Atypical chest pain. Recent stress test and echocardiogram this year were normal. Another echoca rdiogram is pending. There is no reason for another stress test at this point and certainly no reaso n for heart catheterization with normal troponin and atypical chest pain. Her EKG is nonspecific. 2.Abnormal chest x-ray and CT scan. May benefit from gentle diuresis. She is already on Lasix at h ome. We need to watch her pressure. She has orthostatic hypotension and we may have to continue on midodrine. 3.Atrial fibrillation, sinus rhythm, on Eliquis. 4.Dyslipidemia, on Lipitor, stable. 5.Anxiety, on Xanax. 6.History of chronic diastolic congestive heart failure. Echocardiogram in November of 2021 did not riley w that, she has a normal echo. Again, I will continue her low-dose Lasix. She also has a history of pulmonary embolus, history of pneumonia, rhabdomyolysis, endometriosis, coronary artery disease, hyp ertension, diabetes, chronic obstructive pulmonary disease. All of these are stable at this point. Again, I will gently diurese her. There is a Sales Representative [employer] consult for possible placement. Echoca rdiogram is pending. No further cardiac workup recommended at this point. We will continue to follo w her. HAKEEM/ROQUE Voice ID: [id number] Report ID: [id number]
[2022-01-21] MEDS: INSULIN -REGULAR HUMAN 50 UNIT/0.5 ML ML SQ SCH ×4 (07:30→21:00)
[2022-01-21] MEDS ORDERED: PNEUMOCOCCAL VACCINE 0.5 ML IMVAC ONE (08:00)
[2022-01-21] MEDS: BUPROPRION HCL S.R. 150MG TAB PO SCH ×2 (09:12→21:38)
[2022-01-21] MEDS: ALPRAZOLAM 1 MG TABLET PO SCH (09:13)
[2022-01-21] MEDS: ASPIRIN EC 81 MG TAB PO SCH (09:13)
[2022-01-21] MEDS: GABAPENTIN 300 MG CAP PO SCH ×2 (09:13→21:38)
[2022-01-21] MEDS: MIDODRINE HCL 5 MG TABLET PO SCH ×3 (09:13→21:39)
[2022-01-21] MEDS: APIXABAN 5 MG TABLET PO SCH ×2 (09:13→21:39)
[2022-01-21] MEDS: FUROSEMIDE 20 MG/ 2ML VIAL IV SCH ×2 (09:14→16:04)
--- NOTE | 2022-01-21 15:08 | EKG ---
Test Date: 2022-01-20 Test Time: 11:50:30 Wood Machine Carver: DUSTIN MEASUREMENT RESULTS: Intervals: Rate: 96 OK: 200 QRSD: 122 QT: 384 QTc: 485 [place]: P: 51 OK: 200 QRS: -52 T: 27 INTERPRETIVE STATEMENTS: Normal sinus rhythm Left axis deviation RSR' or QR pattern in V1 suggests right ventricular conduction delay Septal infarct, age undetermined Abnormal ECG Compared to ECG 10/27/2021 02:53:14 RSR' in V1 or V2 now present Myocardial infarct finding now present Sinus bradycardia no longer present First degree AV block no longer present Left bundle-branch block no longer present Electronically Signed On 01-21-22 15:06:54 CDT by Riley Kaplan
[2022-01-21] MEDS: Ringers Lactate 1,000 ML IV ONE ×2 (15:41→15:43)
--- NOTE | 2022-01-21 18:49 | P.PN ---
Subjective Date of Service: 01/21/22 Chief Complaint: Chest Pain/CHF Subjective: No new changes No acute events overnight. She states that her chest pain has improved since admission. She continues to have mild shortness of breath, worse when lying flat. Review of Systems 10-point ROS is otherwise unremarkable Respiratory: Shortness of Breath Cardiovascular: Orthopnea Physical Examination - Vital Signs Temperature: 97.2 F Blood Pressure: 103/68 Pulse: 111 Respirations: 18 Pulse Ox (%): 87 - Physical Exam General: Alert, In no apparent distress, Oriented x3 HEENT: Atraumatic, PERRLA, Mucous membr. moist/pink, EOMI, Sclerae nonicteric Neck: Supple, JVD not distended (difficult to assess given habitus) Respiratory: Diminished, Crackles/rales (bibasilar) Cardiovascular: Normal pulses, Regular rate/rhythm, No gallops, No rubs, No murmurs, Edema (1+ bilateral pitting) Gastrointestinal: Normal bowel sounds, Soft and benign, Non-distended, No tenderness, No rebound, No guarding Musculoskeletal: No clubbing Integumentary: No rashes Neurological: Normal speech, Cranial nerves 3-12 intact, Normal affect Assessment And Plan - Plan # Acute on Chronic Decompensated Diastolic Congestive Heart Failure with Preserved Ejection Fraction # Atypical Chest Pain - Consult Cardiology and spoke with Dr. Real - recommendations appreciated - He doubts that her chest pain is cardiac - Transthoracic echocardiogram (10/29/2021) - "normal left ventricular ejection fraction 55-60%. normal wall motion." - CXR = "mild CHF" - Troponin trend: 5.3 -> 6.0 -> 6.6 - Diuresis with IV furosemide for today - Daily weights - Strict I/O - Cardiac diet, 1.5 L fluid restriction, 2 g Na restriction # SIRS Criteria possibly secondary to CHF Exacerbation - no clear source of infection - She transiently meets SIRS criteria (tachycardia and tachypnea), but does not have a clear source of infection. CT chest mentions the possibility of an infiltrate, but clinically she does not appear to have a pneumonia. She does not have fever, cough, or leukocytosis. To further evaluate, will order a CT chest, lactate, and blood cultures. If CT chest is convincing for pneumonia, antibiotics should be started and this should serve as time zero for the sepsis bundle. - In regards to her transient hypotension, this seems to be related to the alprazolam per RN. # History of Hypertension # Anxiety - Continue home medications (bupropion, alprazolam, midodrine) - Caution with opioids and benzodiazepines as her transient hypotension seems to be directly related - Lowered alprazolam dose from 1 mg to 0.5 mg # Paroxysmal Atrial Fibrillation Her [id number] = 4 (CHF=1, HTN=1, DM=1, Sex=1), which warrants anticoagulation. - Currently in sinus rhythm - Continue home apixaban # Dyslipidemia - Continue home atorvastatin # Chronic Obstructive Pulmonary Disease - No evidence of exacerbation - Continue home medications once verified Wayne Christianson M.D.
[2022-01-21] MEDS ORDERED: Ringers Lactate 500 ML IV ONE (19:52)
[2022-01-21 20:39] LABS: Arterial Blood Carboxyhemoglob 1.6 % (0-1.5); Blood Gas Oxyhemoglobin 84.5 % (94-97); Blood O2 Saturation 86.7 % (92-98.5)
[2022-01-21] MEDS: ALPRAZOLAM 0.5 MG TABLET PO SCH (21:00)
[2022-01-21] MEDS: ATORVASTATIN 40 MG TAB PO SCH (21:39)
--- NOTE | 2022-01-21 23:14 | RAD REPORT ---
EXAM DESCRIPTION: CT - Thorax Wo Con - 01/21/2022 11:02 pm CLINICAL HISTORY: sob COMPARISON: June 2021 TECHNIQUE: Computed axial tomography of the chest was obtained. Contrast was not requested. All CT scans are performed using dose optimization technique as appropriate and may include automated exposure control or mA/KV adjustment according to patient size. FINDINGS: The evaluation of mediastinum, frank and vessels is limited secondary to lack of IV contras t administration. Right lower lobe bronchus is occluded. Right lower lobe atelectasis. A few areas of subsegmental atelectasis within the lungs. No mediastinal or hilar lymphadenopathy is seen. A pleural effusion is not present. Small pericardial effusion Elevation right hemidiaphragm IMPRESSION: Occlusion of the right lower lobe bronchus with right lower lobe atelectasis. Bronchosco py may be helpful for further evaluation
[2022-01-22 04:18] LABS: Magnesium 2.2 mg/dL (1.8-2.4); Potassium 3.8 mmol/L (3.5-5.1)
[2022-01-22 04:31] LABS: Absolute Lymphocytes (CBC) 0.8 K/uL (0.7-4.9); Hematocrit 46.1 % (36.0-45.0); Lymphocytes % 9.1 % (15.3-44.8); MCV 103.5 fL (80-100); MPV 8.9 fL (7.6-11.3); RBC Red Blood Cell Count 4.45 M/uL (3.86-4.86)
[2022-01-22 05:35] LABS: Arterial Blood Carboxyhemoglob 1.5 % (0-1.5); Blood Gas Oxyhemoglobin 86.3 % (94-97); Blood O2 Saturation 88.7 % (92-98.5)
--- NOTE | 2022-01-22 07:27 | ECHO ---
HEIGHT: 5 ft 6 in WEIGHT: 200 lb 0 oz DATE OF STUDY: 01/21/[address]: Sherly Cox 2-DIMENSIONAL: YES M.MODE: YES DOPPLER: YES COLOR FLOW: YES TDS: YES PORTABLE: YES DEFINITY: NO BUBBLE STUDY: NO DIAGNOSIS: CONGESTIVE HEART FAILURE CARDIAC HISTORY: CATHERIZATION: NO SURGERY: NO PROSTHETIC VALVE: NO PACEMAKER: NO MEASUREMENTS (cm) DIASTOLIC (NORMALS) SYSTOLIC (NORMALS) IVSd (0.6-1.2) LA Diam (1.9-4.0) LVEF % LVIDd (3.5-5.7) LVIDs (2.0-3.5) %FS % LVPWd (0.6-1.2) Ao Diam (2.0-3.7) 2 DIMENSIONAL ASSESSMENT: RIGHT ATRIUM: LEFT ATRIUM: RIGHT VENTRICLE: LEFT VENTRICLE: TRICUSPID VALVE: MITRAL VALVE: PULMONIC VALVE: AORTIC VALVE: PERICARDIAL EFFUSION: AORTIC ROOT: LEFT VENTRICULAR WALL MOTION: DOPPLER/COLOR FLOW: COMMENTS: EXTREMELY LIMITED WINDOWS. UNABLE TO EVALUATE THIS ECHO DUE TO POOR WINDOWS. TECHNOLOGIST: Michoacano PATTERSON
[2022-01-22] MEDS: INSULIN -REGULAR HUMAN 50 UNIT/0.5 ML ML SQ SCH ×4 (07:30→21:24)
[2022-01-22] MEDS: KCL 20 MEQ/100 mL IVPB 20 MEQ/100 ML BAG IV SCH ×2 (09:00→09:20)
[2022-01-22] MEDS: BUPROPRION HCL S.R. 150MG TAB PO SCH ×2 (10:37→21:24)
[2022-01-22] MEDS: GABAPENTIN 300 MG CAP PO SCH ×2 (10:38→21:24)
[2022-01-22] MEDS: MIDODRINE HCL 5 MG TABLET PO SCH ×3 (10:38→21:24)
[2022-01-22] MEDS: ASPIRIN EC 81 MG TAB PO SCH (10:38)
[2022-01-22] MEDS: APIXABAN 5 MG TABLET PO SCH (10:38)
[2022-01-22] MEDS: ALPRAZOLAM 0.5 MG TABLET PO SCH ×2 (10:38→22:26)
--- NOTE | 2022-01-22 12:48 | P.CNS ---
Date of Consult: 01/22/22 Reason for Consult: Right lower lobe atelectasis Chief Complaint: Chest Pain/CHF History of Present Illness: Patient is 51 years of age history of respiratory failure presumed secondary COPD anabolic syndrome admitted with shortness of breath and left-sided chest pain no evidence of an OR had normal ejection fraction before chronic hypoxemic hypercapnic respiratory failure continues to smoke T scan shows right lower lobe atelectasis as the reason for consultation Allergies bacitracin [From Neosporin ([id number])] Allergy (Verified 10/30/21 06:56) Itching neomycin [From Neosporin ([id number])] Allergy (Verified 10/30/21 06:56) Itching polymyxin B [From Neosporin ([id number])] Allergy (Verified 10/30/21 06:56) Itching Home Medications: ALPRAZolam [Alprazolam] 1 mg PO BID 06/04/21 Nitroglycerin 0.4 mg SL PRN 06/04/21 Atorvastatin Calcium [Lipitor] 40 mg PO BEDTIME #30 tab 06/10/21 buPROPion HCL [Bupropion HCl Sr] 150 mg PO Q12H 06/22/21 Furosemide [Lasix] 20 mg PO DAILY #30 tablet 06/30/21 Apixaban [Eliquis] 5 mg PO BID #60 tablet 07/08/21 Aspirin [Aspirin EC] 81 mg PO DAILY 10/27/21 Gabapentin 300 mg PO BID 10/27/21 Midodrine HCl [Proamatine*] 10 mg PO TID #60 tab 11/11/21 - Past Medical/Surgical History Diabetic: Yes -: Anxiety disorder -: Diabetes mellitus -: CAD -: Hyperlipidemia -: ARF -: CHF -: COPD -: HTN -: Afib -: OR -: adhesion removal -: tubal ligation -: Heart cath Psychosocial/ Personal History: Patient lives at [facility] - Family History Mother Medical History: Lung disease, Cancer Notes: CA and COPD Father Medical History: Diabetes, Stroke - Social History Smoking Status: Unknown if ever smoked Alcohol use: No CD- Drugs: No Caffeine use: No Place of Residence: Home Review of Systems General: Weakness Respiratory: Shortness of Breath Cardiovascular: Chest Pain Physical Examination Temp Pulse Resp BP Pulse Ox 96.7 F L 85 19 123/71 95 01/22/22 12:00 01/22/22 12:00 01/22/22 12:00 01/22/22 12:00 01/22/22 12:00 General: Alert, Oriented x3, Moderate distress Respiratory: Clear to auscultation bilaterally, Diminished Cardiovascular: No edema, Regular rate/rhythm, Normal S1 S2 Gastrointestinal: Normal bowel sounds, Soft and benign - Problems (1) Atelectasis, right Current Visit: Yes Status: Acute Plan: Patient is 51 years of age admitted with left-sided chest pain history of hypoxic hypercapnic respiratory failure anabolic syndrome continues to smoke she does have a right lower lobe atelectasis patient prefers lying on her right side we will plan to do some chest percussion right right side up with nebulized treatment later resolved we will proceed to bronchoscopy high risk for obstruction Juana's labs all reviewed has baseline hypoxemia and hypercapnia is currently anticoagulated left lung is clear low-dose prednisone
[2022-01-22] MEDS: dexAMETHasone 4 MG TAB PO SCH ×2 (13:15→21:24)
[2022-01-22] MEDS: acetaZOLAMIDE 250 MG TAB PO SCH (13:16)
[2022-01-22] MEDS: ALBUTEROL 2.5 MG/3 ML NEB SOL NEB PRN ×2 (14:30→20:30)
--- NOTE | 2022-01-22 19:26 | P.PN ---
Subjective Date of Service: 01/22/22 Chief Complaint: Chest Pain/CHF Over the day yesterday, her shortness of breath continued to worsen. A CT chest was obtained, which revealed, "occlusion of the right lower lobe bronchus with right lower lobe atelectasis." She was started on BiPAP and incentive sp irometry, with improvement in her symptoms. She has been tritrated off of BiPAP to [facility] this morning. Review of Systems 10-point ROS is otherwise unremarkable Respiratory: Shortness of Breath Cardiovascular: Orthopnea Physical Examination - Vital Signs Temperature: 96.3 F Blood Pressure: 109/57 Pulse: 85 Respirations: 18 Pulse Ox (%): 94 Assessment And Plan - Plan - Physical Exam General: Alert, In no apparent distress, Oriented x3 HEENT: Atraumatic, PERRLA, Mucous membr. moist/pink, EOMI, Sclerae nonicteric Neck: Supple, JVD not distended (difficult to assess given habitus) Respiratory: Diminished, Crackles/rales (bibasilar) Cardiovascular: Normal pulses, Regular rate/rhythm, No gallops, No rubs, No murmurs, Edema (1+ bilateral pitting) Gastrointestinal: Normal bowel sounds, Soft and benign, Non-distended, No tenderness, No rebound, No guarding Musculoskeletal: No clubbing Integumentary: No rashes Neurological: Normal speech, Cranial nerves 3-12 intact, Normal affect # Acute Hypoxemic, Hypercapnic Respiratory Failure - likely secondary to Right Lower Lobe Bronchus Occlusion with Right Lower Lobe Occlusion # SIRS Criteria possibly secondary to above - no clear source of infection - Evaluation thus far: - D-Dimer = pending (unlikely to be VTE given that she is on apixaban) - Procalcitonin = 0.62 - ABG = pH 7.35, PCO2 66.6, PO2 59.8 - Chest x-ray = "mild CHF" - CT chest = "occlusion of the right lower lobe bronchus with right lower lobe atelectasis. Bronchoscopy may be helpful for further evaluation" - Management plan: Consulted Pulmonary Medicine for possible bronchoscopy - recommendations appreciated - Consulted Respiratory Therapy - Supplemental oxygen to maintain SpO2 > 92% - PRN benzonatate, guaifenesin - Encouraged incentive spirometry # Acute on Chronic Decompensated Diastolic Congestive Heart Failure with Preserved Ejection Fraction (improved) # Atypical Chest Pain - Consult Cardiology and spoke with Dr. Real - recommendations appreciated - He doubts that her chest pain is cardiac - Transthoracic echocardiogram (10/29/2021) - "normal left ventricular ejection fraction 55-60%. normal wall motion." - CXR = "mild CHF" - Troponin trend: 5.3 -> 6.0 -> 6.6 - Diuresis with IV furosemide for today - Daily weights - Strict I/O - Cardiac diet, 1.5 L fluid restriction, 2 g Na restriction # History of Hypertension # Anxiety - Continue home medications (bupropion, alprazolam, midodrine) - Caution with opioids and benzodiazepines as her transient hypotension seems to be directly related - Lowered alprazolam dose from 1 mg to 0.5 mg # Paroxysmal Atrial Fibrillation Her [id number] = 4 (CHF=1, HTN=1, DM=1, Sex=1), which warrants anticoagulation. - Currently in sinus rhythm - Switch home apixaban to enoxaparin for now in case bronchoscopy is planned # Dyslipidemia - Continue home atorvastatin # Chronic Obstructive Pulmonary Disease - No evidence of exacerbation - Continue home medications once verified Wayne Christianson M.D.
[2022-01-22] MEDS ORDERED: BENZONATATE 100 MG CAP PO PRN (19:35)
[2022-01-22] MEDS: ATORVASTATIN 40 MG TAB PO SCH (21:24)
[2022-01-22] MEDS: ENOXAPARIN 100 MG/ML SYR SQ SCH (21:25)
[2022-01-22] MEDS: GUAIFENESIN 600 MG SA TAB PO SCH (21:28)
--- NOTE | 2022-01-22 23:34 | PN ---
Date of Progress Note: 01/22/2022 Subjective: Seen by bedside. No new complaints. Review of Systems: No chest pain, shortness of breath, orthopnea, or cough. No nausea, vomiting, diarrhea. All other systems reviewed and are negative. Physical Examination: Vital Signs: Reviewed. Head and Neck: Pupils are equal, reactive to light. Intact eye movements. No JVD. No cervical lym phadenopathy. Neck supple. Thyroid is not enlarged. Lungs: Clear to auscultation bilaterally. No rhonchi, wheezing, crackles. No accessory muscle use. Heart: Regular. No extra sounds. Abdomen: Soft, nontender. Bowel sounds positive. No organomegaly. No masses or hernia. No rigidi ty or rebound. Extremities: No clubbing, cyanosis. Intact pulses. Skin: No rash noted. Neurologic: Alert, awake, no acute focal deficits appreciated. Investigations: Labs were reviewed. Assessment And Recommendations: 1.Acute hypoxic respiratory failure, probably due to atelectasis and mucus plugging. I do not see a ny active cardiac issue at this point. She appears to be euvolemic. Continue diuretics. 2.Atrial fibrillation, rate is controlled. Continue anticoagulation with Eliquis. Heart rate is co ntrolled. If heart rate increases, I will introduce the low-dose beta-marcelina. SR/MODL Voice ID: [id number] Report ID: [id number]
[2022-01-23 03:42] LABS: Absolute Lymphocytes (CBC) 0.2 K/uL (0.7-4.9); Hematocrit 46.3 % (36.0-45.0); Lymphocytes % 4.7 % (15.3-44.8); MCV 104.7 fL (80-100); MPV 9.3 fL (7.6-11.3); RBC Red Blood Cell Count 4.42 M/uL (3.86-4.86)
[2022-01-23 04:42] LABS: Blood Morphology Comment NOTED (NOT SEEN); Platelet Estimate ADEQ; Polychromasia 1+
[2022-01-23 04:49] LABS: Magnesium 2.3 mg/dL (1.8-2.4); Potassium 3.8 mmol/L (3.5-5.1)
--- NOTE | 2022-01-23 06:55 | RAD REPORT ---
EXAM DESCRIPTION: RAD - Chest Single View - 01/23/2022 6:40 am CLINICAL HISTORY: RLL atelectasis COMPARISON: CT chest January 21, portable chest January 20 TECHNIQUE: AP portable chest image was obtained 01/23/2022 6:40 am . FINDINGS: The extensive right lower lobe atelectasis detailed on the CT chest study has shown improv ement. No new or progressive lung parenchymal process seen. Heart size is upper normal, accentuated by portable imaging and rotation. No abnormal vascular engorg ement. No pneumothorax or enlarging pleural effusion. IMPRESSION: Partial resolution of right lower lobe atelectasis. No new or progressive cardiopulmonary finding.
[2022-01-23] MEDS ORDERED: KCL 20 MEQ/100 mL IVPB 20 MEQ/100 ML BAG IV SCH (08:00)
[2022-01-23] MEDS: ALBUTEROL 2.5 MG/3 ML NEB SOL NEB PRN ×3 (08:09→19:20)
[2022-01-23] MEDS ORDERED: POTASSIUM CL SA 10 MEQ TAB PO ONE (08:47)
[2022-01-23] MEDS: ALPRAZOLAM 0.5 MG TABLET PO SCH ×2 (08:58→20:58)
[2022-01-23] MEDS: GUAIFENESIN/CODEINE 5ML UCUP PO PRN ×2 (08:58→23:04)
[2022-01-23] MEDS: MIDODRINE HCL 5 MG TABLET PO SCH ×3 (08:58→20:35)
[2022-01-23] MEDS: acetaZOLAMIDE 250 MG TAB PO SCH (08:58)
[2022-01-23] MEDS: GUAIFENESIN 600 MG SA TAB PO SCH ×2 (08:58→20:58)
[2022-01-23] MEDS: ASPIRIN EC 81 MG TAB PO SCH (08:58)
[2022-01-23] MEDS: ENOXAPARIN 100 MG/ML SYR SQ SCH ×2 (08:58→21:02)
[2022-01-23] MEDS: GABAPENTIN 300 MG CAP PO SCH ×2 (08:59→20:58)
[2022-01-23] MEDS: BUPROPRION HCL S.R. 150MG TAB PO SCH ×2 (08:59→21:02)
[2022-01-23] MEDS: dexAMETHasone 4 MG TAB PO SCH ×2 (08:59→20:44)
[2022-01-23] MEDS: INSULIN -REGULAR HUMAN 50 UNIT/0.5 ML ML SQ SCH ×4 (08:59→20:59)
--- NOTE | 2022-01-23 13:00 | RAD REPORT ---
EXAM DESCRIPTION: CT - Chest For Pe Angio - 01/23/2022 12:48 pm CLINICAL HISTORY: R/O PE, elevated DD COMPARISON: Thorax Wo Con dated 01/21/2022; Thorax Wo Con dated 06/28/2021; Chest For Pe Angio dated ; Chest Single View dated 01/23/2022 TECHNIQUE: Dynamically enhanced axial 3 mm thick images of the chest were obtained during administra tion of <100> mL Isovue 370 IV contrast. Coronal and oblique reconstruction images were generated and reviewed. Exam utilizes a protocol for optimal evaluation of pulmonary arterial tree. Maximum intensity projections 3D imaging was utilized All CT scans are performed using dose optimization technique as appropriate and may include automated exposure control or mA/KV adjustment according to patient size. FINDINGS: Chest Wall: No suspicious thyroid nodules or pathologic lymphadenopathy. Lungs: Emphysema. Dependent airspace disease that likely represents a primarily atelectasis. Pleura: Trace pleural effusions. Mediastinum/frank: No pathologic lymphadenopathy. Pulmonary arteries/Aorta: Suboptimal contrast opacification of the pulmonary arteries. Filling defect s within the lingula segmental and left lower lobe segmental pulmonary arteries are similar to 2021. No central embolus is identified. No aortic aneurysm. Heart: No significant pericardial effusion. Normal heart size. Upper abdomen: No acute abnormality. Bones: No acute abnormality. IMPRESSION: Suboptimal opacification of the pulmonary arteries. Similar to 06/03/2021, filling defec ts are noted in segmental branches to the lingula and left lower lobe. Both acute and/or chronic pulm onary emboli are within the differential. The overall clot burden is low, however. Persistent depende nt airspace disease that could reflect atelectasis.
[2022-01-23] MEDS ORDERED: NA CHLORIDE 0.9% 250 ML IV ONE (20:20)
--- NOTE | 2022-01-23 20:45 | P.PN ---
Subjective Date of Service: 01/23/22 Chief Complaint: Chest Pain/CHF No acute events overnight. She continues to have persistent shortness of breath, but is requiring less oxygen support. She was on 10 L NC this morning on rounds. Review of Systems 10-point ROS is otherwise unremarkable Respiratory: Cough, Dry, Shortness of Breath, SOB with Excertion Physical Examination - Vital Signs Temperature: 97.2 F Blood Pressure: 102/62 Pulse: 80 Respirations: 18 Pulse Ox (%): 92 Assessment And Plan - Plan - Physical Exam General: Alert, In no apparent distress, Oriented x3 HEENT: Atraumatic, PERRLA, Mucous membr. moist/pink, EOMI, Sclerae nonicteric Neck: Supple, JVD not distended (difficult to assess given habitus) Respiratory: Diminished, Crackles/rales (bibasilar) Cardiovascular: Normal pulses, Regular rate/rhythm, No gallops, No rubs, No murmurs, Edema (1+ bilateral pitting) Gastrointestinal: Normal bowel sounds, Soft and benign, Non-distended, No tenderness, No rebound, No guarding Musculoskeletal: No clubbing Integumentary: No rashes Neurological: Normal speech, Cranial nerves 3-12 intact, Normal affect # Acute Hypoxemic, Hypercapnic Respiratory Failure - likely secondary to Right Lower Lobe Bronchus Occlusion with Right Lower Lobe Occlusion with Atelectasis # SIRS Criteria possibly secondary to above - no clear source of infection - Evaluation thus far: - D-Dimer = 1211 (unlikely to be VTE given that she is on apixaban) - Procalcitonin = 0.62 - ABG = pH 7.35, PCO2 66.6, PO2 59.8 - Chest x-ray = "mild CHF" - CT chest = "occlusion of the right lower lobe bronchus with right lower lobe atelectasis. Bronchoscopy may be helpful for further evaluation" - CXR (01/23) = "Partial resolution of right lower lobe atelectasis. No new or progressive cardiopulmonary finding." - CTA = "Suboptimal opacification of the pulmonary arteries. Similar to 06/03/2021, filling defects are noted in segmental branches to the lingula and left lower lobe. Both acute and/or chronic pulmonary emboli are within the differential. The overall clot burden is low, however. Persistent dependent airspace disease that could reflect atelectasis." - Management plan: - Consulted Pulmonary Medicine and spoke with Dr. Erwin - recommendations appreciated - Hold off on bronchoscopy for now given improvement in CXR findings - Consulted Respiratory Therapy - Supplemental oxygen to maintain SpO2 > 92% - Wean as tolerated - PRN benzonatate, guaifenesin - Encouraged incentive spirometry # Acute on Chronic Decompensated Diastolic Congestive Heart Failure with Preserved Ejection Fraction (improved) # Atypical Chest Pain - Consult Cardiology and spoke with Dr. Real - recommendations appreciated - He doubts that her chest pain is cardiac - Transthoracic echocardiogram (10/29/2021) - "normal left ventricular ejection fraction 55-60%. normal wall motion." - CXR = "mild CHF" - Troponin trend: 5.3 -> 6.0 -> 6.6 - Diuresis with IV furosemide for today - Daily weights - Strict I/O - Cardiac diet, 1.5 L fluid restriction, 2 g Na restriction # History of Hypertension # Anxiety - Continue home medications (bupropion, alprazolam, midodrine) - Caution with opioids and benzodiazepines as her transient hypotension seems to be directly related - Lowered alprazolam dose from 1 mg to 0.5 mg # Paroxysmal Atrial Fibrillation Her [id number] = 4 (CHF=1, HTN=1, DM=1, Sex=1), which warrants anticoagulation. - Currently in sinus rhythm - Switch home apixaban to enoxaparin for now in case bronchoscopy is planned # Dyslipidemia - Continue home atorvastatin # Chronic Obstructive Pulmonary Disease - No evidence of exacerbation - Continue home medications once verified Wayne Christianson M.D.
[2022-01-23] MEDS: ATORVASTATIN 40 MG TAB PO SCH (20:58)
[2022-01-24] MEDS: ALBUTEROL 2.5 MG/3 ML NEB SOL NEB PRN ×3 (02:15→14:10)
[2022-01-24] MEDS: ALPRAZOLAM 0.5 MG TABLET PO SCH (10:00)
[2022-01-24] MEDS: acetaZOLAMIDE 250 MG TAB PO SCH (10:00)
[2022-01-24] MEDS: GABAPENTIN 300 MG CAP PO SCH ×2 (10:00→21:21)
[2022-01-24] MEDS: dexAMETHasone 4 MG TAB PO SCH ×2 (10:00→21:21)
[2022-01-24] MEDS: GUAIFENESIN 600 MG SA TAB PO SCH ×2 (10:00→21:27)
[2022-01-24] MEDS: ASPIRIN EC 81 MG TAB PO SCH (10:00)
[2022-01-24] MEDS: ENOXAPARIN 100 MG/ML SYR SQ SCH ×2 (10:00→21:20)
[2022-01-24] MEDS: MIDODRINE HCL 5 MG TABLET PO SCH ×3 (10:00→21:27)
[2022-01-24] MEDS: INSULIN -REGULAR HUMAN 50 UNIT/0.5 ML ML SQ SCH ×4 (10:01→21:22)
[2022-01-24] MEDS: BUPROPRION HCL S.R. 150MG TAB PO SCH ×2 (10:01→21:20)
[2022-01-24] MEDS: GUAIFENESIN/CODEINE 5ML UCUP PO PRN ×2 (10:02→21:28)
--- NOTE | 2022-01-24 16:44 | P.PN ---
Subjective Date of Service: 01/24/22 Chief Complaint: Chest Pain/CHF No acute events overnight. She states that her shortness of breath is improving. She was on 5 L NC this morning. Review of Systems 10-point ROS is otherwise unremarkable Respiratory: Cough, Dry, SOB with Excertion Physical Examination - Vital Signs Temperature: 97.3 F Blood Pressure: 116/63 Pulse: 72 Respirations: 18 Pulse Ox (%): 94 Assessment And Plan - Plan - Physical Exam General: Alert, In no apparent distress, Oriented x3 HEENT: Atraumatic, PERRLA, Mucous membr. moist/pink, EOMI, Sclerae nonicteric Neck: Supple, JVD not distended (difficult to assess given habitus) Respiratory: SpO2 95 % on 5 L. Diminished, Crackles/rales (bibasilar) Cardiovascular: Normal pulses, Regular rate/rhythm, No gallops, No rubs, No murmurs, Edema (1+ bilateral pitting) Gastrointestinal: Normal bowel sounds, Soft and benign, Non-distended, No tenderness, No rebound, No guarding Musculoskeletal: No clubbing Integumentary: No rashes Neurological: Normal speech, Cranial nerves 3-12 intact, Normal affect # Acute Hypoxemic, Hypercapnic Respiratory Failure - likely secondary to Right Lower Lobe Bronchus Occlusion with Right Lower Lobe Occlusion with Atelectasis # SIRS Criteria possibly secondary to above - no clear source of infection - Evaluation thus far: - D-Dimer = 1211 (unlikely to be VTE given that she is on apixaban) - Procalcitonin = 0.62 - ABG = pH 7.35, PCO2 66.6, PO2 59.8 - Chest x-ray = "mild CHF" - CT chest = "occlusion of the right lower lobe bronchus with right lower lob e atelectasis. Bronchoscopy may be helpful for further evaluation" - CXR (01/23) = "Partial resolution of right lower lobe atelectasis. No new or progressive cardiopulmonary finding." - CTA = "Suboptimal opacification of the pulmonary arteries. Similar to 06/03/2021, filling defects are noted in segmental branches to the lingula and left lower lobe. Both acute and/or chronic pulmonary emboli are within the differential. The overall clot burden is low, however. Persistent dependent airspace disease that could reflect atelectasis." - Management plan: - Consulted Pulmonary Medicine and spoke with Dr. Erwin - recommendations appreciated - Hold off on bronchoscopy for now given improvement in CXR findings - Consulted Respiratory Therapy - Supplemental oxygen to maintain SpO2 > 92% - Wean as tolerated - PRN benzonatate, guaifenesin - Encouraged incentive spirometry - Started acetylcysteine - Repeat CXR in the morning # Acute on Chronic Decompensated Diastolic Congestive Heart Failure with Preserved Ejection Fraction (improved) # Atypical Chest Pain - Consult Cardiology and spoke with Dr. Real - recommendations appreciated - He doubts that her chest pain is cardiac - Transthoracic echocardiogram (10/29/2021) - "normal left ventricular ejection fraction 55-60%. normal wall motion." - CXR = "mild CHF" - Troponin trend: 5.3 -> 6.0 -> 6.6 - Diuresis with IV furosemide for today - Daily weights - Strict I/O - Cardiac diet, 1.5 L fluid restriction, 2 g Na restriction # History of Hypertension # Anxiety - Continue home medications (bupropion, alprazolam, midodrine) - Caution with opioids and benzodiazepines as her transient hypotension seems to be directly related - Lowered alprazolam dose from 1 mg to 0.5 mg # Paroxysmal Atrial Fibrillation Her [id number] = 4 (CHF=1, HTN=1, DM=1, Sex=1), which warrants anticoagulation . - Currently in sinus rhythm - Switch home apixaban to enoxaparin for now in case bronchoscopy is planned # Dyslipidemia - Continue home atorvastatin # Chronic Obstructive Pulmonary Disease - No evidence of exacerbation - Continue home medications once verified Wayne Christianson M.D.
[2022-01-24] MEDS: ALBUTEROL 2.5 MG/3 ML NEB SOL NEB SCH (20:00)
[2022-01-24] MEDS: ACETYLCYST 20% 4 ML VIAL IH SCH (20:00)
[2022-01-24] MEDS: IPRATROPIUM BROM 0.5MG/2.5ML NEB SCH (20:00)
[2022-01-24] MEDS: ATORVASTATIN 40 MG TAB PO SCH (21:20)
[2022-01-25] MEDS: ALPRAZOLAM 0.5 MG TABLET PO SCH ×3 (00:03→21:04)
[2022-01-25] MEDS: ALBUTEROL 2.5 MG/3 ML NEB SOL NEB SCH ×4 (01:40→20:25)
[2022-01-25] MEDS: IPRATROPIUM BROM 0.5MG/2.5ML NEB SCH ×4 (01:40→20:30)
--- NOTE | 2022-01-25 06:40 | RAD REPORT ---
EXAM DESCRIPTION: RAD - Chest Single View - 01/25/2022 5:28 am CLINICAL HISTORY: atelectasis COMPARISON: CT chest January 23, portable chest January 23 TECHNIQUE: AP portable chest image was obtained 01/25/2022 5:28 am . FINDINGS: Remnant atelectasis persists in the right base similar to the January 23 imaging. No jeremías lure or volume overload. No progressive lung parenchymal process. Mediastinum is distorted by rotation. Heart and vasculature are normal. No measurable pleural effusio n and no pneumothorax. No acute bony abnormality seen. No acute aortic findings suspected. IMPRESSION: Chest examination is stable. There is remnant right base atelectasis.
[2022-01-25] MEDS: INSULIN -REGULAR HUMAN 50 UNIT/0.5 ML ML SQ SCH ×4 (07:30→21:00)
[2022-01-25] MEDS: ACETYLCYST 20% 4 ML VIAL IH SCH ×3 (08:00→20:25)
[2022-01-25] MEDS: ENOXAPARIN 100 MG/ML SYR SQ SCH ×2 (08:54→21:04)
[2022-01-25] MEDS: GUAIFENESIN 600 MG SA TAB PO SCH ×2 (08:54→21:05)
[2022-01-25] MEDS: dexAMETHasone 4 MG TAB PO SCH ×2 (08:55→21:04)
[2022-01-25] MEDS: GABAPENTIN 300 MG CAP PO SCH ×2 (08:55→21:05)
[2022-01-25] MEDS: acetaZOLAMIDE 250 MG TAB PO SCH (08:56)
[2022-01-25] MEDS: MIDODRINE HCL 5 MG TABLET PO SCH ×3 (08:56→21:05)
[2022-01-25] MEDS: ASPIRIN EC 81 MG TAB PO SCH (08:56)
[2022-01-25] MEDS: BUPROPRION HCL S.R. 150MG TAB PO SCH ×2 (08:56→21:04)
[2022-01-25] MEDS: GUAIFENESIN/CODEINE 5ML UCUP PO PRN (13:37)
--- NOTE | 2022-01-25 21:03 | P.PN ---
Subjective Date of Service: 01/25/22 Chief Complaint: Chest Pain/CHF No acute events overnight. She states that her shortness of breath is improving. She has been working well with Respiratory Therapy. She was on 3 L NC this morning. Review of Systems 10-point ROS is otherwise unremarkable Respiratory: Cough, Dry, Shortness of Breath Physical Examination - Vital Signs Temperature: 97.4 F Blood Pressure: 106/58 Pulse: 70 Respirations: 16 Pulse Ox (%): 95 Assessment And Plan - Plan - Physical Exam General: Alert, In no apparent distress, Oriented x3 HEENT: Atraumatic, PERRLA, Mucous membr. moist/pink, EOMI, Sclerae nonicteric Neck: Supple, JVD not distended (difficult to assess given habitus) Respiratory: SpO2 95 % on 5 L. Diminished, Crackles/rales (bibasilar) Cardiovascular: Normal pulses, Regular rate/rhythm, No gallops, No rubs, No murmurs, Edema (1+ bilateral pitting) Gastrointestinal: Normal bowel sounds, Soft and benign, Non-distended, No tenderness, No rebound, No guarding Musculoskeletal: No clubbing Integumentary: No rashes Neurological: Normal speech, Cranial nerves 3-12 intact, Normal affect # Acute Hypoxemic, Hypercapnic Respiratory Failure - likely secondary to Right Lower Lobe Bronchus Occlusion with Right Lower Lobe Occlusion with Atelectasis # SIRS Criteria possibly secondary to above - no clear source of infection - Evaluation thus far: - D-Dimer = 1211 (unlikely to be VTE given that she is on apixaban) - Procalcitonin = 0.62 - ABG = pH 7.35, PCO2 66.6, PO2 59.8 - Chest x-ray = "mild CHF" - CT chest = "occlusion of the right lower lobe bronchus with right lower lobe atelectasis. Bronchoscopy may be helpful for further evaluation" - CXR (01/23) = "Partial resolution of right lower lobe atelectasis. No new or progressive cardiopulmonary finding." - CTA = "Suboptimal opacification of the pulmonary arteries. Similar to 06/03/2021, filling defects are noted in segmental branches to the lingula and left lower lobe. Both acute and/or chronic pulmonary emboli are within the differential. The overall clot burden is low, however. Persistent dependent airspace disease that could reflect atelectasis." - Management plan: - Consulted Pulmonary Medicine and spoke with Dr. Erwin - recommendations appreciated - Hold off on bronchoscopy for now given improvement in CXR findings - Consulted Respiratory Therapy - Supplemental oxygen to maintain SpO2 > 92% - Wean as tolerated - PRN benzonatate, guaifenesin - Encouraged incentive spirometry - Started acetylcysteine - Repeat CXR in the morning # Acute on Chronic Decompensated Diastolic Congestive Heart Failure with Preserved Ejection Fraction (improved) # Atypical Chest Pain - Consult Cardiology and spoke with Dr. Real - recommendations appreciated - He doubts that her chest pain is cardiac - Transthoracic echocardiogram (10/29/2021) - "normal left ventricular ejection fraction 55-60%. normal wall motion." - CXR = "mild CHF" - Troponin trend: 5.3 -> 6.0 -> 6.6 - Diuresis with IV furosemide for today - Daily weights - Strict I/O - Cardiac diet, 1.5 L fluid restriction, 2 g Na restriction # History of Hypertension # Anxiety - Continue home medications (bupropion, alprazolam, midodrine) - Caution with opioids and benzodiazepines as her transient hypotension seems to be directly related - Lowered alprazolam dose from 1 mg to 0.5 mg # Paroxysmal Atrial Fibrillation Her [id number] = 4 (CHF=1, HTN=1, DM=1, Sex=1), which warrants anticoagulation. - Currently in sinus rhythm - Switch home apixaban to enoxaparin for now in case bronchoscopy is planned # Dyslipidemia - Continue home atorvastatin # Chronic Obstructive Pulmonary Disease - No evidence of exacerbation - Continue home medications once verified - Gradually improving with RT. Weaning oxygen as tolerated. Wayne Christianson M.D.
[2022-01-25] MEDS: ATORVASTATIN 40 MG TAB PO SCH (21:05)
[2022-01-26] MEDS: IPRATROPIUM BROM 0.5MG/2.5ML NEB SCH ×4 (01:44→20:15)
[2022-01-26] MEDS: ALBUTEROL 2.5 MG/3 ML NEB SOL NEB SCH ×4 (01:44→20:15)
[2022-01-26] MEDS: INSULIN -REGULAR HUMAN 50 UNIT/0.5 ML ML SQ SCH ×4 (07:30→21:35)
[2022-01-26] MEDS: acetaZOLAMIDE 250 MG TAB PO SCH (08:37)
[2022-01-26] MEDS: dexAMETHasone 4 MG TAB PO SCH ×2 (08:37→21:37)
[2022-01-26] MEDS: ASPIRIN EC 81 MG TAB PO SCH (08:37)
[2022-01-26] MEDS: GABAPENTIN 300 MG CAP PO SCH ×2 (08:38→21:35)
[2022-01-26] MEDS: MIDODRINE HCL 5 MG TABLET PO SCH ×3 (08:38→21:35)
[2022-01-26] MEDS: BUPROPRION HCL S.R. 150MG TAB PO SCH ×2 (08:38→21:34)
[2022-01-26] MEDS: ALPRAZOLAM 0.5 MG TABLET PO SCH ×2 (08:38→21:35)
[2022-01-26] MEDS: ENOXAPARIN 100 MG/ML SYR SQ SCH ×2 (08:39→21:35)
[2022-01-26] MEDS: GUAIFENESIN 600 MG SA TAB PO SCH ×2 (08:39→21:34)
[2022-01-26] MEDS: ACETYLCYST 20% 4 ML VIAL IH SCH ×2 (09:50→20:15)
--- NOTE | 2022-01-26 16:40 | P.PN ---
Subjective Date of Service: 01/26/22 Chief Complaint: Chest Pain/CHF No acute events overnight. She believes that her symptoms are gradually improving day-by-day. She has been working well with Respiratory Therapy and remains on 3 L NC this morning. Review of Systems 10-point ROS is otherwise unremarkable Respiratory: Cough, Shortness of Breath Physical Examination - Vital Signs Temperature: 97.2 F Blood Pressure: 113/74 Pulse: 67 Respirations: 14 Pulse Ox (%): 94 Assessment And Plan - Plan - Physical Exam General: Alert, In no apparent distress, Oriented x3 HEENT: Atraumatic, PERRLA, Mucous membr. moist/pink, EOMI, Sclerae nonicteric Neck: Supple, JVD not distended (difficult to assess given habitus) Respiratory: SpO2 95 % on 5 L. Diminished, Crackles/rales (bibasilar) Cardiovascular: Normal pulses, Regular rate/rhythm, No gallops, No rubs, No murmurs, Edema (1+ bilateral pitting) Gastrointestinal: Normal bowel sounds, Soft and benign, Non-distended, No tenderness, No rebound, No guarding Musculoskeletal: No clubbing Integumentary: No rashes Neurological: Normal speech, Cranial nerves 3-12 intact, Normal affect # Acute Hypoxemic, Hypercapnic Respiratory Failure - likely secondary to Right Lower Lobe Bronchus Occlusion with Right Lower Lobe Occlusion with Atelectasis # SIRS Criteria possibly secondary to above - no clear source of infection - Evaluation thus far: - D-Dimer = 1211 (unlikely to be VTE given that she is on apixaban) - Procalcitonin = 0.62 - ABG = pH 7.35, PCO2 66.6, PO2 59.8 - Chest x-ray = "mild CHF" - CT chest = "occlusion of the right lower lobe bronchus with right lower lobe atelectasis. Bronchoscopy may be helpful for further evaluation" - CXR (01/23) = "Partial resolution of right lower lobe atelectasis. No new or progressive cardiopulmonary finding." - CTA = "Suboptimal opacification of the pulmonary arteries. Similar to 06/03/2021, filling defects are noted in segmental branches to the lingula and left lower lobe. Both acute and/or chronic pulmonary emboli are within the differential. The overall clot burden is low, however. Persistent dependent airspace disease that could reflect atelectasis." - Management plan: - Consulted Pulmonary Medicine and spoke with Dr. Erwin - recommendations appreciated - Hold off on bronchoscopy for now given improvement in CXR findings - Consulted Respiratory Therapy - Supplemental oxygen to maintain SpO2 > 92% - Wean as tolerated - PRN benzonatate, guaifenesin - Encouraged incentive spirometry - Started acetylcysteine - Repeat CXR in the morning # Acute on Chronic Decompensated Diastolic Congestive Heart Failure with Preserved Ejection Fraction (improved) # Atypical Chest Pain - Consult Cardiology and spoke with Dr. Real - recommendations appreciated - He doubts that her chest pain is cardiac - Transthoracic echocardiogram (10/29/2021) - "normal left ventricular ejection fraction 55-60%. normal wall motion." - CXR = "mild CHF" - Troponin trend: 5.3 -> 6.0 -> 6.6 - Diuresis with IV furosemide for today - Daily weights - Strict I/O - Cardiac diet, 1.5 L fluid restriction, 2 g Na restriction # History of Hypertension # Anxiety - Continue home medications (bupropion, alprazolam, midodrine) - Caution with opioids and benzodiazepines as her transient hypotension seems to be directly related - Lowered alprazolam dose from 1 mg to 0.5 mg # Paroxysmal Atrial Fibrillation Her [id number] = 4 (CHF=1, HTN=1, DM=1, Sex=1), which warrants anticoagulation. - Currently in sinus rhythm - Switch home apixaban to enoxaparin for now in case bronchoscopy is planned # Dyslipidemia - Continue home atorvastatin # Chronic Obstructive Pulmonary Disease - No evidence of exacerbation - Continue home medications once verified - No new changes today. She continues to work with RT. We are weaning oxygen as tolerated. Wayne Christianson M.D.
[2022-01-26] MEDS: ATORVASTATIN 40 MG TAB PO SCH (21:35)
[2022-01-27] MEDS: ALBUTEROL 2.5 MG/3 ML NEB SOL NEB SCH ×4 (01:05→19:40)
[2022-01-27] MEDS: IPRATROPIUM BROM 0.5MG/2.5ML NEB SCH ×4 (01:05→19:40)
[2022-01-27] MEDS: GUAIFENESIN/CODEINE 5ML UCUP PO PRN (04:34)
[2022-01-27 04:55] LABS: Absolute Lymphocytes (CBC) 0.7 K/uL (0.7-4.9); Hematocrit 44.2 % (36.0-45.0); Lymphocytes % 9.5 % (15.3-44.8); MCV 106.7 fL (80-100); MPV 8.8 fL (7.6-11.3); RBC Red Blood Cell Count 4.15 M/uL (3.86-4.86)
[2022-01-27] MEDS: INSULIN -REGULAR HUMAN 50 UNIT/0.5 ML ML SQ SCH ×4 (07:30→20:20)
[2022-01-27] MEDS: ACETYLCYST 20% 4 ML VIAL IH SCH (08:00)
[2022-01-27] MEDS: BUPROPRION HCL S.R. 150MG TAB PO SCH ×2 (08:29→20:21)
[2022-01-27] MEDS: acetaZOLAMIDE 250 MG TAB PO SCH (08:29)
[2022-01-27] MEDS: dexAMETHasone 4 MG TAB PO SCH ×2 (08:29→20:21)
[2022-01-27] MEDS: MIDODRINE HCL 5 MG TABLET PO SCH ×3 (08:29→20:22)
[2022-01-27] MEDS: ALPRAZOLAM 0.5 MG TABLET PO SCH ×2 (08:29→20:21)
[2022-01-27] MEDS: ASPIRIN EC 81 MG TAB PO SCH (08:29)
[2022-01-27] MEDS: ENOXAPARIN 100 MG/ML SYR SQ SCH ×2 (08:30→20:23)
[2022-01-27] MEDS: GABAPENTIN 300 MG CAP PO SCH ×2 (08:30→20:21)
[2022-01-27] MEDS: GUAIFENESIN 600 MG SA TAB PO SCH ×2 (08:31→20:22)
--- NOTE | 2022-01-27 18:36 | P.PN ---
Subjective Date of Service: 01/27/22 Chief Complaint: Chest Pain/CHF No acute events overnight. She has been working well with Respiratory Therapy. Oxygen weaned to 1.5 L NC. She is eager for discharge home, but will need to be off oxygen prior to discharge. Review of Systems 10-point ROS is otherwise unremarkable Respiratory: Cough, Shortness of Breath, SOB with Excertion Physical Examination - Vital Signs Temperature: 97.7 F Blood Pressure: 114/69 Pulse: 67 Respirations: 16 Pulse Ox (%): 98 Assessment And Plan - Plan - Physical Exam General: Alert, In no apparent distress, Oriented x3 HEENT: Atraumatic, PERRLA, Mucous membr. moist/pink, EOMI, Sclerae nonicteric Neck: Supple, JVD not distended (difficult to assess given habitus) Respiratory: SpO2 95 % on 5 L. Diminished, Crackles/rales (bibasilar) Cardiovascular: Normal pulses, Regular rate/rhythm, No gallops, No rubs, No murmurs, Edema (1+ bilateral pitting) Gastrointestinal: Normal bowel sounds, Soft and benign, Non-distended, No tenderness, No rebound, No guarding Musculoskeletal: No clubbing Integumentary: No rashes Neurological: Normal speech, Cranial nerves 3-12 intact, Normal affect # Acute Hypoxemic, Hypercapnic Respiratory Failure - likely secondary to Right Lower Lobe Bronchus Occlusion with Right Lower Lobe Occlusion with Atelectasis # SIRS Criteria possibly secondary to above - no clear source of infection - Evaluation thus far: - D-Dimer = 1211 (unlikely to be VTE given that she is on apixaban) - Procalcitonin = 0.62 - ABG = pH 7.35, PCO2 66.6, PO2 59.8 - Chest x-ray = "mild CHF" - CT chest = "occlusion of the right lower lobe bronchus with right lower lobe atelectasis. Bronchoscopy may be helpful for further evaluation" - CXR (01/23) = "Partial resolution of right lower lobe atelectasis. No new or progressive cardiopulmonary finding." - CTA = "Suboptimal opacification of the pulmonary arteries. Similar to 06/03/2021, filling defects are noted in segmental branches to the lingula and left lower lobe. Both acute and/or chronic pulmonary emboli are within the differential. The overall clot burden is low, however. Persistent dependent airspace disease that could reflect atelectasis." - Management plan: - Consulted Pulmonary Medicine and spoke with Dr. Erwin - recommendations appreciated - Hold off on bronchoscopy for now given improvement in CXR findings - Consulted Respiratory Therapy - Supplemental oxygen to maintain SpO2 > 92% - Wean as tolerated - PRN benzonatate, guaifenesin - Encouraged incentive spirometry - Started acetylcysteine - Repeat CXR in the morning # Acute on Chronic Decompensated Diastolic Congestive Heart Failure with Preserved Ejection Fraction (improved) # Atypical Chest Pain - Consult Cardiology and spoke with Dr. Real - recommendations appreciated - He doubts that her chest pain is cardiac - Transthoracic echocardiogram (10/29/2021) - "normal left ventricular ejection fraction 55-60%. normal wall motion." - CXR = "mild CHF" - Troponin trend: 5.3 -> 6.0 -> 6.6 - Diuresis with IV furosemide for today - Daily weights - Strict I/O - Cardiac diet, 1.5 L fluid restriction, 2 g Na restriction # History of Hypertension # Anxiety - Continue home medications (bupropion, alprazolam, midodrine) - Caution with opioids and benzodiazepines as her transient hypotension seems to be directly related - Lowered alprazolam dose from 1 mg to 0.5 mg # Paroxysmal Atrial Fibrillation Her [id number] = 4 (CHF=1, HTN=1, DM=1, Sex=1), which warrants anticoagulation. - Currently in sinus rhythm - Switch home apixaban to enoxaparin for now in case bronchoscopy is planned # Dyslipidemia - Continue home atorvastatin # Chronic Obstructive Pulmonary Disease - No evidence of exacerbation - Continue home medications once verified - No new changes. Weaning oxygen as tolerated. Currently on 1.5 L. Wayne Christianson M.D. Physician Review: Patient Assessed, Agree with Above Assessment and Plan
--- NOTE | 2022-01-27 19:24 | PN ---
Subjective: Mrs. Whaley on 01/25/2022 had normal vital signs. Objective: Vital Signs: Blood pressure 107/70, normal sinus rhythm, pulse was 53, temperature 97.2, O2 saturation was 94% on nasal cannula. Laboratory Data: Last creatinine is 0.93. Her last glucose is 196. Medications: Remains on Xanax, inhalers, aspirin, Lipitor, Lovenox, gabapentin, insulin, midodrine, Diamox, and steroid. Shortness of breath is improving. Respiratory therapy is involved. Her problems include respiratory failure secondary to right lower lobe occlusion from the mucus plugs, atelectasis. She had acute on chronic diastolic congestive heart failure. Chest pain is noncardiac. Chest x-ray showed mild fail ure. IV Lasix to be continued. She is on Lovenox now for atrial fibrillation, but she should be madelin k on Eliquis when she goes home. We will continue treatment for her COPD and dyslipidemia. We will sign off her case for now. HAKEEM/ROQUE Voice ID: [id number] Report ID: [id number]
[2022-01-27] MEDS: ATORVASTATIN 40 MG TAB PO SCH (20:21)
[2022-01-28] MEDS: ALBUTEROL 2.5 MG/3 ML NEB SOL NEB SCH ×4 (01:20→20:05)
[2022-01-28] MEDS: IPRATROPIUM BROM 0.5MG/2.5ML NEB SCH ×4 (01:20→20:05)
[2022-01-28 05:37] LABS: Potassium 4.2 mmol/L (3.5-5.1)
[2022-01-28] MEDS: INSULIN -REGULAR HUMAN 50 UNIT/0.5 ML ML SQ SCH ×4 (08:13→20:54)
[2022-01-28] MEDS: ENOXAPARIN 100 MG/ML SYR SQ SCH ×2 (08:14→20:44)
[2022-01-28] MEDS: GUAIFENESIN 600 MG SA TAB PO SCH ×2 (08:15→20:44)
[2022-01-28] MEDS: ASPIRIN EC 81 MG TAB PO SCH (08:15)
[2022-01-28] MEDS: BUPROPRION HCL S.R. 150MG TAB PO SCH ×2 (08:15→20:44)
[2022-01-28] MEDS: MIDODRINE HCL 5 MG TABLET PO SCH ×3 (08:15→20:44)
[2022-01-28] MEDS: GABAPENTIN 300 MG CAP PO SCH ×2 (08:15→20:44)
[2022-01-28] MEDS: acetaZOLAMIDE 250 MG TAB PO SCH (08:15)
[2022-01-28] MEDS: dexAMETHasone 4 MG TAB PO SCH (08:15)
[2022-01-28] MEDS: ATORVASTATIN 40 MG TAB PO SCH (20:44)
[2022-01-28] MEDS: ALPRAZOLAM 1 MG TABLET PO PRN (20:53)
[2022-01-29] MEDS: ALBUTEROL 2.5 MG/3 ML NEB SOL NEB SCH ×2 (01:10→08:00)
[2022-01-29] MEDS: IPRATROPIUM BROM 0.5MG/2.5ML NEB SCH ×2 (01:10→08:00)
[2022-01-29] MEDS: GUAIFENESIN/CODEINE 5ML UCUP PO PRN (01:37)
[2022-01-29 07:10] LABS: Magnesium 2.2 mg/dL (1.8-2.4); Potassium 3.1 mmol/L (3.5-5.1)
[2022-01-29] MEDS ORDERED: POTASSIUM 25 MEQ EFFERV TAB PO ONE (07:25)
[2022-01-29] MEDS: INSULIN -REGULAR HUMAN 50 UNIT/0.5 ML ML SQ SCH (07:30)
[2022-01-29 08:51] VITALS: BP 112/66; TEMP 97
[2022-01-29] MEDS: MIDODRINE HCL 5 MG TABLET PO SCH (09:28)
[2022-01-29] MEDS: acetaZOLAMIDE 250 MG TAB PO SCH (09:29)
[2022-01-29] MEDS: GABAPENTIN 300 MG CAP PO SCH (09:29)
[2022-01-29] MEDS: ASPIRIN EC 81 MG TAB PO SCH (09:29)
[2022-01-29] MEDS: GUAIFENESIN 600 MG SA TAB PO SCH (09:29)
[2022-01-29] MEDS: ENOXAPARIN 100 MG/ML SYR SQ SCH (09:29)
--- NOTE | 2022-01-29 09:31 | P.PN ---
Subjective Date of Service: 01/28/22 Subjective: No new changes, No C/O voiced, Improving Chart reviewed; patient well-known to me. Patient is clinically doing well. She is appears to be back to her baseline. On 1 L of oxygen she is satting 95%. We will go ahead and put her on room air. Review of Systems 10-point ROS is otherwise unremarkable Physical Examination - Vital Signs Temperature: 97.0 F Blood Pressure: 112/66 Pulse: 69 Respirations: 16 Pulse Ox (%): 94 - Physical Exam General: Alert, In no apparent distress, Oriented x3 HEENT: Atraumatic, PERRLA, EOMI Neck: Supple, JVD not distended Respiratory: Clear to auscultation bilaterally, Normal air movement Cardiovascular: Regular rate/rhythm, Normal S1 S2 Gastrointestinal: Normal bowel sounds, No tenderness Musculoskeletal: No tenderness Integumentary: No rashes Neurological: Normal speech, Normal tone, Normal affect Lymphatics: No axilla or inguinal lymphadenopathy - Studies Medications List Reviewed: Yes Assessment & Plan - Problems (Diagnosis) (1) Acute bronchitis with COPD Current Visit: Yes Status: Acute (2) Atrial fibrillation Current Visit: Yes Status: Acute Qualifiers: Atrial fibrillation type: paroxysmal Qualified Code(s): I48.0 - Paroxysmal atrial fibrillation (3) Type 2 diabetes mellitus Current Visit: Yes Status: Acute Qualifiers: Diabetes mellitus mcc insulin use: with rat exterminator use Diabetes mellitus complication status: with kidney complications Diabetes mellitus complication detail: with chronic kidney disease Chronic kidney disease stage: stage 3 (moderate) Chronic kidney disease stage 3 subtype: stage 3a (GFR 45- 59) Qualified Code(s): E11.22 - Type 2 diabetes mellitus with diabetic chronic kidney disease; N18.31 - Chronic kidney disease, stage 3a; Z79.4 - FDC (current) use of insulin (4) CHF (congestive heart failure) Current Visit: Yes Status: Chronic Qualifiers: Heart failure type: diastolic Heart failure chronicity: acute on chronic Qualified Code(s): I50.33 - Acute on chronic diastolic (congestive) heart failure (5) Hypertension Current Visit: Yes Status: Chronic Qualifiers: Hypertension type: primary hypertension Qualified Code(s): I10 - Essential (primary) hypertension - Plan Plan: 1. Continue with albuterol and Atrovent nebs 2. Continue with IV steroids 3. Outpatient pulmonary function testing 4. Pulmonary follow-up 5. Room air O2 sats 6. Repeat chest x-ray in the morning 7. cough meds and anxiolytics 8. GI and DVT prophylaxis Discharge Plan: Home Plan to discharge in: 24 Hours - Advance Directives Does patient have a Living Will: No Does patient have a Durable POA for Healthcare: No - Code Status/Comfort Care Code Status Assessed: Yes Code Status: Full Code Physician Review: Patient Assessed, Agree with Above Assessment and Plan Critical Care: No Time Spent Managing PTS Care (In Minutes): 35
[2022-01-29] MEDS: ALPRAZOLAM 1 MG TABLET PO PRN (09:33)
[2022-01-29] MEDS: BUPROPRION HCL S.R. 150MG TAB PO SCH (09:33)
--- NOTE | 2022-01-29 09:33 | P.DS ---
Discharge Date: 01/29/22 Disposition: ROUTINE DISCHARGE Discharge Condition: GOOD Reason for Admission: Chest Pain/CHF - Problems (1) Acute bronchitis with COPD Current Visit: Yes Status: Acute (2) Atrial fibrillation Current Visit: Yes Status: Acute Qualifiers: Atrial fibrillation type: paroxysmal Qualified Code(s): I48.0 - Paroxysmal atrial fibrillation (3) Type 2 diabetes mellitus Current Visit: Yes Status: Acute Qualifiers: Diabetes mellitus detention insulin use: with terminal manager use Diabetes mellitus complication status: with kidney complications Diabetes mellitus complication detail: with chronic kidney disease Chronic kidney disease stage: stage 3 (moderate) Chronic kidney disease stage 3 subtype: stage 3a (GFR 45- 59) Qualified Code(s): E11.22 - Type 2 diabetes mellitus with diabetic chronic kidney disease; N18.31 - Chronic kidney disease, stage 3a; Z79.4 - intermediate accountant (current) use of insulin (4) CHF (congestive heart failure) Current Visit: Yes Status: Chronic Qualifiers: Heart failure type: diastolic Heart failure chronicity: acute on chronic Qualified Code(s): I50.33 - Acute on chronic diastolic (congestive) heart failure (5) Hypertension Current Visit: Yes Status: Chronic Qualifiers: Hypertension type: primary hypertension Qualified Code(s): I10 - Essential (primary) hypertension Brief History of Present Illness: Patient is a 51-year-old female with history of A. fib on Eliquis, hypertension, CAD, CHF, hypertension, and insulin dependent type 2 diabetes who presented to the ED with complaints of chest pain that began 2 hours [employer]IC[employer]. She states that she has been out of her medications for few weeks now. She took 3 nitro and [address] here. chest x-ray showed mild CHF. EKG normal sinus rhythm. Troponin negative. BNP pending. She was initially saturating 90% on RA and is now 100% on 2L. Echo from October 2021 showed normal EF. She was given 40 mg lasix in the ED and is now resting comfortably with no complaints. She is admitted for further evaluation and treatment. Hospital Course: Patient is clinically doing well. Symptoms are improved. Continue with nebs, steroids, and antibiotics. Patient is stable for discharge with outpatient follow-up. Vital Signs/Physical Exam: Temp Pulse Resp BP Pulse Ox 97.0 F 69 16 112/66 94 01/29/22 09:31 01/29/22 09:31 01/29/22 09:31 01/29/22 09:31 01/29/22 09:31 General: Alert, In no apparent distress, Oriented x3 Laboratory Data at Discharge: WBC 6.90 K/uL (4.3-10.9) 01/27/22 04:14 Hgb 14.2 g/dL (12.0-15.0) 01/27/22 04:14 Hct 44.2 % (36.0-45.0) 01/27/22 04:14 Plt Count 148 K/uL (152-406) L 01/27/22 04:14 Sodium 147 mmol/L (136-145) H 01/29/22 06:44 Potassium 3.1 mmol/L (3.5-5.1) L D 01/29/22 06:44 BUN 20 mg/dL (7-18) H 01/29/22 06:44 Creatinine 1.08 mg/dL (0.55-1.3) 01/29/22 06:44 Glucose 171 mg/dL (74-106) H 01/29/22 06:44 Magnesium 2.2 mg/dL (1.8-2.4) 01/29/22 06:44 Triglycerides 437 mg/dL (<150) H 01/21/22 04:12 Cholesterol 231 mg/dL (<200) H 01/21/22 04:12 LDL Cholesterol Direct 155 mg/dL (100-129) H 01/21/22 04:12 HDL Cholesterol 34 mg/dL (40-60) L 01/21/22 04:12 Cholesterol/HDL Ratio 6.79 01/21/22 04:12 Home Medications: ALPRAZolam [Alprazolam] 1 mg PO BID 06/04/21 Nitroglycerin 0.4 mg SL PRN 06/04/21 Atorvastatin Calcium [Lipitor] 40 mg PO BEDTIME #30 tab 06/10/21 buPROPion HCL [Bupropion HCl Sr] 150 mg PO Q12H 06/22/21 Furosemide [Lasix] 20 mg PO DAILY #30 tablet 06/30/21 Apixaban [Eliquis] 5 mg PO BID #60 tablet 07/08/21 Aspirin [Aspirin EC] 81 mg PO DAILY 10/27/21 Gabapentin 300 mg PO BID 10/27/21 Midodrine HCl [Proamatine*] 10 mg PO TID #60 tab 11/11/21 Albuterol Neb [Proventil 0.083% Neb Soln] 2.5 mg NEB [id number] #60 amp 01/29/22 Azithromycin Tab [Zithromax*] 250 mg PO DAILY #5 tab 01/29/22 Benzonatate [Tessalon Perle*] 100 mg PO TID PRN #30 cap 01/29/22 Ipratropium Neb [Atrovent*] 0.5 mg NEB [id number] #60 amp 01/29/22 acetaZOLAMIDE [Diamox*] 250 mg PO DAILY #30 tab 01/29/22 predniSONE [Deltasone] 20 mg PO BID #11 tab 01/29/22 New Medications: Ipratropium Neb [Atrovent*] 0.5 mg NEB [id number] #60 amp acetaZOLAMIDE [Diamox*] 250 mg PO DAILY #30 tab predniSONE [Deltasone] 20 mg PO BID #11 tab Albuterol Neb [Proventil 0.083% Neb Soln] 2.5 mg NEB [id number] #60 amp Benzonatate [Tessalon Perle*] 100 mg PO TID PRN #30 cap PRN Reason: Cough Azithromycin Tab [Zithromax*] 250 mg PO DAILY #5 tab Physician Discharge Instructions: -DC IV and DC home -Follow-up with PCP in 1 to 2 weeks -Follow-up with pulmonary in 1 to 2 weeks -Please call Dr. Dietrich at [phone] if any questions regarding hospital stay -Please call nursing station at [phone] if any nursing or medication questions -Return to the emergency room if symptoms worsen Diet: AHA Activity: Fall precautions Followup: NONE,NONE [Primary Care Provider] - Time spent managing pt's care (in minutes): 35
[2022-01-29 09:42] VITALS: O2SAT 95
== END 2022-01-29 12:25 | disposition home or self-care (01) | DRG 202 ==
LOC: ER 11:43 → ERHOLD 19:16 → 4TH 20:23
PROVIDERS: ADMIT Hospitalist; ATTEND Hospitalist
PROC: 5A09557 Assistance with Respiratory Ventilation, Greater than 96 Consecutive Hours, Continuous Positive Airway Pressure (ICD-10-PCS; principal; 2022-01-29)
DX: J20.9 Acute bronchitis, unspecified (principal); I50.33 Acute on chronic diastolic (congestive) heart failure; J96.01 Acute respiratory failure with hypoxia; J96.02 Acute respiratory failure with hypercapnia; J98.11 Atelectasis; I13.0 Hypertensive heart and chronic kidney disease with heart failure and stage 1 through stage 4 chronic kidney disease, or unspecified chronic kidney disease; R65.10 Systemic inflammatory response syndrome (SIRS) of non-infectious origin without acute organ dysfunction; J44.0 Chronic obstructive pulmonary disease with (acute) lower respiratory infection; N18.31 Chronic kidney disease, stage 3a; E11.22 Type 2 diabetes mellitus with diabetic chronic kidney disease; E78.5 Hyperlipidemia, unspecified; F41.9 Anxiety disorder, unspecified; I95.1 Orthostatic hypotension; I25.10 Atherosclerotic heart disease of native coronary artery without angina pectoris; I48.0 Paroxysmal atrial fibrillation; F17.210 Nicotine dependence, cigarettes, uncomplicated; I25.2 Old myocardial infarction; Z88.8 Allergy status to other drugs, medicaments and biological substances; Z88.1 Allergy status to other antibiotic agents; Z79.4 Long term (current) use of insulin; Z98.51 Tubal ligation status; Z79.01 Long term (current) use of anticoagulants; Z28.310 Unvaccinated for COVID-19; Z79.899 Other long term (current) drug therapy; Z20.822 Contact with and (suspected) exposure to COVID-19
CPT/HCPCS: 36415; 71045; 71250; 71275; 74177; 80048; 80061; 81003; 82805; 82947; 83036; 83605; 83735; 83880; 84145; 84443; 84484; 85025; 85379; 87040; 87811; 93005; 93306; 94002; 94003; 94010; 94660; 94667; 94668; 94760; 96374; 97110; 97116; 97161; 97530; 99285; J1650; J1815; J1940; J3480; J7050; J7120; J8540; Q9967

== ENCOUNTER 2022-02-03 17:31 | Inpatient (IN) | payer SELFPAY ==
--- NOTE | 2022-02-03 18:15 | RAD REPORT ---
EXAM DESCRIPTION: RAD - Chest Single View - 02/03/2022 6:03 pm CLINICAL HISTORY: SOB COMPARISON: Portable 01/25/2022, CT chest 01/23/2022 TECHNIQUE: AP portable chest image was obtained 02/03/2022 6:03 pm in semi upright position. FINDINGS: No new mass or consolidation. Hazy right base opacification remains and is probably remnan t atelectasis seen on prior imaging. No progressive pleural or parenchymal process. Cardiac silhouette is prominent. cardiomediastinal silhouette is stable from comparison imaging. No pneumothorax or enlarging pleural effusion. No acute bony abnormality seen. No acute aortic findings suspected. IMPRESSION: Remnant right base atelectasis with no new or progressive finding from prior imaging.
[2022-02-03 18:32] LABS: Blood Gas Oxyhemoglobin 85.6 % (94-97); Blood O2 Saturation 89.5 % (92-98.5)
[2022-02-03 21:30] LABS: Absolute Lymphocytes (CBC) 0.8 K/uL (0.7-4.9); Hematocrit 44.6 % (36.0-45.0); Lymphocytes % 11.3 % (15.3-44.8); MCV 107.1 fL (80-100); MPV 9.7 fL (7.6-11.3); Protime INR 1.07; RBC Red Blood Cell Count 4.16 M/uL (3.86-4.86)
[2022-02-03 21:41] LABS: Albumin 2.9 g/dL (3.4-5.0); Bilirubin Direct 0.2 mg/dL (0-0.2); Magnesium 2.3 mg/dL (1.8-2.4); Potassium 3.5 mmol/L (3.5-5.1)
[2022-02-03 21:49] LABS: Urine Blood 3+ (Negative); Urine Glucose Negative (Negative); Urine Protein 3+ (Negative); Urine Specific Gravity 1.025 (1.005-1.030)
[2022-02-03 21:56] LABS: Urine Specific Gravity/Preg 1.025 (1.005-1.030)
[2022-02-03 21:56] LABS: Bilirubin Total 0.8 mg/dL (0.2-1.0); Protein, Total 6.9 g/dL (6.4-8.2); Troponin High Sensitivity 6.6 pg/mL (<58.9)
[2022-02-03 22:10] LABS: Urine Bacteria <20 /HPF (<20); Urine Mucus Slight /HPF (None Seen); Urine RBC >50 /HPF (None Seen); Urine WBC Clump Many /HPF (None Seen)
[2022-02-03 22:19] LABS: Barbiturates NEGATIVE (NEGATIVE); Benzodiazepines POSITIVE (NEGATIVE); Cocaine NEGATIVE (NEGATIVE); METHAMPHETAM NEGATIVE (NEGATIVE); Methadone NEGATIVE (NEGATIVE); Opiates NEGATIVE (NEGATIVE); Phencyclidine NEGATIVE (NEGATIVE); THC Cannibis POSITIVE (NEGATIVE)
--- NOTE | 2022-02-03 22:30 | RAD REPORT ---
EXAM DESCRIPTION: CT - Head C Spine Cap W Con - 02/03/2022 9:59 pm CLINICAL HISTORY: fall, head, neck, chest and abdomen pain, history of renal failure, COPD, hyperten jordan COMPARISON: <Comparisons>CT trauma study October 27 TECHNIQUE: Axial [address] head images were obtained. Axial [address] cervical spine images were obtaine d with sagittal and coronal reconstruction images reviewed. During dynamic enhancement of 100mL non-i onic contrast, axial 5 mm images of the chest, abdomen and pelvis were obtained. Biphasic technique p erformed of the abdomen and pelvis. All CT scans are performed using dose optimization technique as appropriate and may include automated exposure control or mA/KV adjustment according to patient size. FINDINGS: No intracranial hemorrhage, mass or edema. No midline shift or abnormal fluid collection. Mild to moderate for age atrophy changes are present. Advanced cerebral white matter chronic ischemic changes are present. Ventricles are in proportion to any volume loss. Mastoid air cells and paranasa l sinuses are clear. No skull fracture. CT cervical spine imaging shows normal height. Normal alignment of the vertebrae. No disc space narro wing. No paraspinal mass or hematoma seen. Central canal detail is inherently limited. Concerns for t raumatic disc herniation or traumatic cord injury can be further addressed with MR imaging. Chronic subpleural bulla and bleb formation noted. No pneumothorax. Lung base atelectasis changes. Th ere is probably small component of right lower lobe infiltrate as well. No mediastinal hematoma and t he aorta and pulmonary arteries are unremarkable. No chest will mass or abnormal axillary finding. No displaced rib fracture or other significant bony finding. CT abdomen and pelvis show no injury to solid abdominal viscera. Gallbladder and biliary tree are unr emarkable. No bowel injury or significant finding. No free air, free fluid or abnormal stranding. Uri nary bladder is fully contracted around a [place] catheter. Uterus and ovaries are normal. No significant bony finding. No significant vascular finding. IMPRESSION: Advanced for atrophy and chronic ischemic changes similar to the October 27 imaging. No acu te intracranial finding. No acute cervical spine finding. Posterior lung base atelectasis with suspected minimal infiltrate in the right lower lobe. No significant CT Abdomen and Pelvis finding.
[2022-02-03] MEDS ORDERED: CEFTRIAXONE 1000 MG/VIAL ONE (22:40)
[2022-02-03] MEDS ORDERED: NA CHLORIDE 0.9% 50 ML ONE (22:41)
--- NOTE | 2022-02-03 23:03 | ER ---
Nurse's Notes [facility] Name: Raiza Whaley Age: 51 yrs Sex: Female : 1970 Arrival Date: 02/03/2022 Time: 17:35 Bed 8 Private MD: Diagnosis: Hypoxemia;Other pneumonia, unspecified organism;UTI/ Urinary tract infection, site not specified Presentation: 02/03 17:40 Chief complaint: EMS states: Second time to run on pt today for fall from bed. Pt ph requested to be transported to ER for burning w/ urination. 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 Coronavirus screen: Vaccine status: Patient reports receiving the 2nd dose of the covid vaccine. Ebola Screen: No symptoms or risks identified at this time. Initial Sepsis Screen: Does the patient meet any 2 criteria? No. Patient's initial sepsis screen is negative. Does the patient have a suspected source of infection? No. Patient's initial sepsis screen is negative. Risk Assessment: Do you want to hurt yourself or someone else? Patient reports no desire to harm self or others. Onset of symptoms was February 03, 2022. 17:40 Method Of Arrival: EMS: [facility] 17:40 Acuity: PATRIZIA 3 ph Triage Assessment: 17:49 General: Appears in no apparent distress. obese, unkempt, feces noted to bilateral feet ph and inner thighs, pt also noted to have urinated on self. Behavior is cooperative, drowsy. Pain: Complains of pain in pelvis. Neuro: Level of Consciousness is awake, obeys commands, lethargic, Oriented to person, place, time, situation. Cardiovascular: Capillary refill < 3 seconds in bilateral fingers Patient's skin is warm and dry. Respiratory: Airway is patent Respiratory effort is even, unlabored, Respiratory pattern is regular, symmetrical. GI: Abdomen is obese. : Reports burning with urination. Derm: Skin is thin, with poor turgor Skin is dusky. Musculoskeletal: Circulation, motion, and sensation intact. Range of motion: intact in all extremities. Historical: - Allergies: 17:47 Neosporin ([id number]); ph - Home Meds: 17:47 aspirin 81 mg Oral TbEC 1 tab once daily [Active]; atorvastatin 40 mg Oral tab 1 tab ph once daily [Active]; bupropion HCl 150 mg Oral Tb24 1 tab twice a day [Active]; Eliquis 5 mg Oral tab 1 tab 2 times per day [Active]; furosemide 20 mg Oral tab 1 tab once daily [Active]; gabapentin 300 mg Oral cap 1 cap twice a day [Active]; metoprolol tartrate 25 mg Oral tab 1 tab once daily [Active]; nitroglycerin 0.4 mg SL subl [Active]; - PMHx: 17:47 acute renal failure; Anxiety; Atrial Fib; blood clots in lungs; CHF; COPD; Diabetes - ph IDDM; Endometrosis; Hypertension; Myocardial infarction; Pneumonia; Rhabdo; - PSHx: 17:47 Biopsies for HPV; Expoloratory surgery for stomach adhesions; ph - Immunization history:: Adult Immunizations unknown. - Social history:: Smoking status: Patient reports the use of cigarette tobacco products, smokes one pack cigarettes per day. Screenin:53 Abuse screen: Denies threats or abuse. Denies injuries from another. Nutritional ph screening: No deficits noted. Tuberculosis screening: No symptoms or risk factors identified. Fall Risk Fall in past 12 months (25 points). No secondary diagnosis (0 pts). IV access (20 points). Ambulatory Aid- None/Bed Rest/Nurse Assist (0 pts). Gait- Impaired (20 pts.). Mental Status- Oriented to own ability (0 pts). Total Adams Fall Scale indicates High Risk Score (45 or more points). Fall prevention measures have been instituted. Side Rails Up X 2 Placed Close to Nursing Station Frequent Obs/Assessments Occuring As available patient and family educated on Fall Prevention Program and Strategies. Assessment: 18:30 General: SEE TRIAGE ASSESSMENT. ph 19:30 General: Appears in no apparent distress. Behavior is quiet, eyes close, responds to ha1 touch stimuli.. Pain: Unable to use pain scale. FLACC scale score is 0 out of 10. Neuro: Level of Consciousness is lethargic. Cardiovascular: Patient's skin is warm and dry. Rhythm is sinus rhythm. Respiratory: Airway is patent Trachea midline Respiratory effort is even, unlabored, Respiratory pattern is regular, symmetrical. Derm: skin on the arms is covered with feces. wipes were used to clean pt. 20:30 Reassessment: Patient appears in no apparent distress at this time. No changes from ha1 previously documented assessment. Patient and/or family updated on plan of care and expected duration. Pain level reassessed. 21:54 Reassessment: Patient and/or family updated on plan of care and expected duration. Pain ha1 level reassessed. Patient is alert, oriented x 3, equal unlabored respirations, skin warm/dry/pink. pt. awake. 22:41 Reassessment: Patient and/or family updated on plan of care and expected duration. Pain ha1 level reassessed. Patient is alert, oriented x 3, equal unlabored respirations, skin warm/dry/pink. 23:20 Reassessment: pt taken to room with shower and given a bath by this RN and orthopaedic technologist se Resendez. Vital Signs: 17:40 BP 120 / 72; Pulse 88; Resp 18; Temp 97.4; Pulse Ox 90% on R/A; Weight 90.72 kg; Height ph 5 ft. 6 in. (167.64 cm); 18:30 BP 113 / 79; Pulse 81; Resp 20; Pulse Ox 96% on 2 lpm NC; db 19:30 BP 109 / 71; Pulse 82; Resp 18 S; Pulse Ox 93% on R/A; ha1 21:30 BP 102 / 79; Pulse 85; Resp 20 S; Pulse Ox 93% on R/A; ha1 22:30 BP 103 / 71; Pulse 82; Resp 15 S; Pulse Ox 95% on R/A; ha1 17:40 Body Mass Index 32.28 (90.72 kg, 167.64 cm) ph Vitals: 18:30 Cardiac Rhythm Assessment Sinus rhythm. db ED Course: 17:35 Patient arrived in ED. eb 17:40 Bhupinder Kahn PA is PHCP. cp 17:40 Guanako Kelly MD is Attending Physician. cp 17:47 Triage completed. ph 17:48 Arm band placed on Patient placed in an exam room, on pulse oximetry. ph 17:54 Patient has correct armband on for positive identification. Placed in gown. Bed in low ph position. Call light in reach. Side rails up X2. monitor technician on. Pulse ox on. 18:05 XRAY Chest (1 view) In Process Unspecified. EDMS 18:28 Door closed. Noise minimized. Warm blanket given. Repositioned patient. Cleaned of ph incontinence. Linen changed. pt cleaned of feces, placed in clean dry brief. 18:50 Oxygen administration via nasal cannula \T\ 2L/min. db 19:54 Radiology exam delayed due to lab results not completed at this time. (BUN/Creatinine) bq IV insertion attempt and/or patient not having appropriate IV at this time. 21:03 Marie Anguiano RN is Primary Nurse. ha1 21:08 Initial lab(s) drawn, by me, sent to lab. First set of blood cultures drawn by me. bb Accessed peripheral vein via ultrasound, utilizing dynamic ultrasound technique Powerglide 18g 10 cm midline to right upper arm using hospital protocol with good blood return and flushes easily pt tolerated well. 22:01 CT Traumagram (Head C Spine CAP W Con) In Process Unspecified. EDMS 23:02 Stevan Valerio is Hospitalizing Provider. 02/04 07:13 Primary Nurse role handed off by Marie Anguiano RN 2 07:13 Adele Dupont, ARTEM is Primary Nurse. tw2 Administered Medications: 02/03 22:40 Drug: Rocephin (cefTRIAXone) 1 grams Route: IV; Rate: calculated rate; Site: right ha1 upper arm; 22:51 Follow up: Response: No adverse reaction; IV Intake: 50ml ha1 02/04 00:10 Follow up: IV Status: Completed infusion kd3 00:10 Drug: Zithromax (azithromycin) 500 mg Route: IVPB; Infused Over: 1 hrs; Site: right kd3 antecubital; Medication: 02/03 17:53 VIS not applicable for this client. ph Intake: 22:51 IV: 50ml; Total: 50ml. [facility] Outcome: 23:03 Decision to Hospitalize by Provider. 02/04 09:47 Patient left the ED. jd3 Signatures: Dispatcher [employer] EDHI Claire Ramos Brenda RN ARTEM bb Renetta Albrecht RN RN ph Bhupinder Kahn PA PA Adele Dupont, ARTEM RN tw2 Roland Gunn RN RN jd3 Rylee Limon Kyli, RN RN kd3 Marie Anguiano RN RN ha1 Audrey Del Toro RN RN db Corrections: (The following items were deleted from the chart) 02/03 21:54 21:48 General: leticia kelly
--- NOTE | 2022-02-03 23:03 | EDPHYS ---
Physician Documentation [facility] Name: Raiza Whaley Age: 51 yrs Sex: Female : 1970 Arrival Date: 02/03/2022 Time: 17:35 Bed 8 Private MD: ED Physician Guanako Kelly HPI: 02/03 17:55 This 51 yrs old Female presents to ER via EMS with complaints of Urinary Problem. cp 17:55 Details of fall: The patient fell from seated position, off the edge of a bed. cp 17:55 The patient presents with urinary symptoms, dysuria. Onset: The symptoms/episode cp began/occurred today. 17:55 Associated signs and symptoms: Pertinent positives: general weakness, Pertinent cp negatives: fever, cough, chest pain. Historical: - Allergies: 17:47 Neosporin ([id number]); ph - Home Meds: 17:47 aspirin 81 mg Oral TbEC 1 tab once daily [Active]; atorvastatin 40 mg Oral tab 1 tab ph once daily [Active]; bupropion HCl 150 mg Oral Tb24 1 tab twice a day [Active]; Eliquis 5 mg Oral tab 1 tab 2 times per day [Active]; furosemide 20 mg Oral tab 1 tab once daily [Active]; gabapentin 300 mg Oral cap 1 cap twice a day [Active]; metoprolol tartrate 25 mg Oral tab 1 tab once daily [Active]; nitroglycerin 0.4 mg SL subl [Active]; - PMHx: 17:47 acute renal failure; Anxiety; Atrial Fib; blood clots in lungs; CHF; COPD; Diabetes - ph IDDM; Endometrosis; Hypertension; Myocardial infarction; Pneumonia; Rhabdo; - PSHx: 17:47 Biopsies for HPV; Expoloratory surgery for stomach adhesions; ph - Immunization history:: Adult Immunizations unknown. - Social history:: Smoking status: Patient reports the use of cigarette tobacco products, smokes one pack cigarettes per day. ROS: 18:00 Constitutional: Negative for body aches, chills, fever. cp 18:00 Eyes: Negative for injury, pain, redness, and discharge. cp 18:00 ENT: Negative for drainage from ear(s), ear pain, sore throat, difficulty swallowing, difficulty handling secretions. 18:00 Cardiovascular: Negative for chest pain, edema, palpitations. 18:00 Respiratory: Negative for cough, wheezing. 18:00 Abdomen/GI: Positive for abdominal pain, Negative for vomiting, diarrhea, constipation. 18:00 : Positive for burning with urination. 18:00 Neuro: Positive for weakness, Negative for altered mental status, headache. 18:00 All other systems are negative. Exam: 18:05 Constitutional: The patient appears in no acute distress, non-diaphoretic, non-toxic, cp well developed, well nourished, smells of urine, unkempt, drowsy 18:05 Head/Face: Normocephalic, atraumatic. cp 18:05 Eyes: Periorbital structures: appear normal, Pupils: equal, round, and reactive to light and accomodation, Extraocular movements: intact throughout, Conjunctiva: normal, no exudate, no injection, Sclera: no appreciated abnormality, Lids and lashes: appear normal, bilaterally. 18:05 ENT: External ear(s): are unremarkable, Ear canal(s): are normal, clear, TM's: dullness, bilaterally, Nose: is normal, Mouth: Lips: dry, Oral mucosa: dry, Posterior pharynx: Airway: no evidence of obstruction, patent. 18:05 Neck: ROM/movement: is normal, is supple, without pain, no range of motions limitations, no meningismus, no nuchal rigidity. 18:05 Chest/axilla: Inspection: normal, Palpation: is normal, no crepitus, no tenderness. 18:05 Cardiovascular: Rate: normal, Rhythm: regular, Edema: is not appreciated, JVD: is not appreciated. 18:05 Respiratory: the patient does not display signs of respiratory distress, Respirations: labored breathing, is not present, shallow respirations, that is mild, Breath sounds: are clear throughout, no decreased breath sounds, no stridor, no wheezing. 18:05 Abdomen/GI: Inspection: bruising noted left lower abdomen, Bowel sounds: active, all quadrants, Palpation: soft, in all quadrants, mild abdominal tenderness, in the left lower quadrant, rebound tenderness, is not appreciated, involuntary guarding, is not appreciated. 18:05 Back: CVA tenderness, is absent. 18:05 Skin: cellulitis, is not appreciated, no rash present. 18:05 Neuro: Orientation: to person, place, situation, Mentation: able to follow commands, slow to respond, Motor: moves all fours, general weakness with no focal deficits, Sensation: no obvious gross deficits. 18:47 ECG was reviewed by the Attending Physician. Vital Signs: 17:40 BP 120 / 72; Pulse 88; Resp 18; Temp 97.4; Pulse Ox 90% on R/A; Weight 90.72 kg; Height ph 5 ft. 6 in. (167.64 cm); 18:30 BP 113 / 79; Pulse 81; Resp 20; Pulse Ox 96% on 2 lpm NC; db 19:30 BP 109 / 71; Pulse 82; Resp 18 S; Pulse Ox 93% on R/A; ha1 21:30 BP 102 / 79; Pulse 85; Resp 20 S; Pulse Ox 93% on R/A; ha1 22:30 BP 103 / 71; Pulse 82; Resp 15 S; Pulse Ox 95% on R/A; ha1 17:40 Body Mass Index 32.28 (90.72 kg, 167.64 cm) ph MDM: 17:45 Patient medically screened. cp 23:00 Data reviewed: vital signs, nurses notes, lab test result(s), EKG, radiologic studies, cp CT scan, plain films. 23:00 Test interpretation: by ED physician or midlevel provider: ECG, plain radiologic cp studies. Counseling: I had a detailed discussion with the patient and/or guardian regarding: the historical points, exam findings, and any diagnostic results supporting the discharge/admit diagnosis, lab results, radiology results, the need for further work-up and treatment in the hospital. Physician consultation: Sherly Cox PA-C regarding admission, to the telemetry unit. patient's condition. 02/03 17:47 Order name: Basic Metabolic Panel; Complete Time: 22:18 cp 02/03 21:53 Interpretation: Normal except: NA 146; CL 111; GLUC 119; GFR 70. cp 02/03 17:47 Order name: CBC with Diff; Complete Time: 00:02 cp 02/03 22:19 Interpretation: Normal except: MCV 107.1; PLT 151; RDW 16.1; ZAC% 77.9; LYM% 11.3. cp 02/03 17:47 Order name: LFT's; Complete Time: 22:18 cp 02/03 22:18 Interpretation: Normal except: ALB 2.9; GLOB 4.0; A/G 0.7. 02/03 17:47 Order name: Magnesium; Complete Time: 22:18 02/03 17:47 Order name: NT PRO-BNP; Complete Time: 22:18 02/03 17:47 Order name: PT-INR; Complete Time: 21:53 02/03 17:47 Order name: Troponin HS; Complete Time: 22:18 02/03 17:47 Order name: Urine Microscopic Only; Complete Time: 22:18 02/03 22:19 Interpretation: Normal except: UWBC >50; URBC >50; UWBC Clump Many. 02/03 17:47 Order name: Lactate; Complete Time: 22:18 02/03 18:14 Order name: ABG; Complete Time: 19:36 02/03 20:21 Order name: Procalcitonin; Complete Time: 22:18 02/03 20:21 Order name: Blood Culture Adult (2) 02/03 20:21 Order name: UDS; Complete Time: 22:23 02/03 22:24 Interpretation: Normal except: BZO POSITIVE; THC POSITIVE. 02/03 21:42 Order name: CBC Smear Scan; Complete Time: 00:02 [facility] 02/03 17:47 Order name: XRAY Chest (1 view); Complete Time: 19:36 02/03 17:47 Order name: EKG; Complete Time: 17:48 02/03 17:47 Order name: Cardiac monitoring; Complete Time: 19:10 02/03 18:14 Order name: CT Traumagram (Head C Spine CAP W Con); Complete Time: 22:45 02/03 21:49 Order name: Urine Dipstick-Ancillary; Complete Time: 21:53 [facility] 02/03 22:19 Interpretation: Normal except: UBLD 3+; UPROT 3+; UNIT Positive; UESTR 1+. 02/03 21:52 Order name: Urine --Ancillary (enter results); Complete Time: 22:18 02/03 22:14 Order name: Urine Culture [facility] 02/03 22:17 Order name: SARS RAPID; Complete Time: 00:02 02/04 00:32 Order name: Social Service Consult [facility] 02/04 02:22 Order name: CREATININE WHOLE BLOOD [facility] 02/04 06:32 Order name: CBC with Automated Diff [facility] 02/04 06:42 Order name: Basic Metabolic Panel [facility] 02/04 06:42 Order name: Magnesium [facility] 02/04 07:39 Order name: Glucose, Ancillary Testing [facility] 02/03 17:47 Order name: EKG - Nurse/Tech; Complete Time: 19:10 cp 02/03 17:47 Order name: IV Saline Lock; Complete Time: 20:55 cp 02/03 17:47 Order name: Labs collected and sent; Complete Time: 20:55 cp 02/03 17:47 Order name: O2 Per Protocol; Complete Time: 17:55 cp 02/03 17:47 Order name: O2 Sat Monitoring; Complete Time: 17:55 cp 02/03 17:47 Order name: Cath; Complete Time: 21:48 cp 02/03 17:47 Order name: Urine Dipstick-Ancillary (obtain specimen); Complete Time: 21:48 cp 02/03 17:47 Order name: Urine Test (obtain specimen); Complete Time: 21:48 cp EC:47 Rate is 82 beats/min. Rhythm is regular. [place] interval is prolonged at 210 msec. QRS cp interval is prolonged at 140 msec. QT interval is normal. Reviewed by me. Administered Medications: 22:40 Drug: Rocephin (cefTRIAXone) 1 grams Route: IV; Rate: calculated rate; Site: right [facility] upper arm; 22:51 Follow up: Response: No adverse reaction; IV Intake: 50ml [facility] 02/04 00:10 Follow up: IV Status: Completed infusion kd3 00:10 Drug: Zithromax (azithromycin) 500 mg Route: IVPB; Infused Over: 1 hrs; Site: right 3 antecubital; Disposition Summary: 02/03/22 23:03 Hospitalization Ordered Hospitalization Status: Inpatient Admission cp Provider: Stevan Valerio cp Condition: Fair cp Problem: new cp Symptoms: have improved cp Bed/Room Type: Standard cp Location: Telemetry/MedSurg (Inpatient)(02/04/22 08:47) bd Room Assignment: 410(02/04/22 08:47) bd Diagnosis - Hypoxemia cp - Other pneumonia, unspecified organism cp - UTI/ Urinary tract infection, site not specified cp Forms: - Medication Reconciliation Form cp - SBAR form cp Addendum: 02/06/2022 07:33 Co-signature as Attending Physician, Guanako Kelly MD. r n Signatures: Dispatcher [employer] Emely Umana Martha, RN RN mw Nieto, Roman, MD MD rn Hall, Patricia, RN RN ph Page, Corey, PA PA cp Doucette, Kyli, RN RN kd3 Marie Anguiano RN RN ha1 Sherly Cox PAPapi [employer] banks4 Corrections: (The following items were deleted from the chart) 02/03 23:05 23:03 Telemetry/MedSurg (Inpatient) [facility] 23: 23:03 [facility] 02/04 08:47 02/03 23:05 [facility] ER HOLD [facility] 02/04 08:47 02/03 23:05 ERHOLD- [facility]
[2022-02-03] MEDS ORDERED: AZITHROMYCIN 500 MG INJ IVPB ONE (23:23)
[2022-02-03] MEDS ORDERED: NA CHLORIDE 0.9% 250 ML ONE (23:23)
[2022-02-03 23:24] LABS: SARS-CoV-2 Antigen Rapid Res Negative (Negative)
[2022-02-03 23:31] LABS: Blood Morphology Comment NOTED (NOT SEEN); Macrocytosis 1+; Platelet Estimate ADEQ; Polychromasia 1+; White Blood Cell Scan OK (OK)
--- NOTE | 2022-02-04 00:27 | P.HP ---
Certification for Inpatient Patient admitted to: Inpatient With expected LOS: >2 Midnights Patient will require the following post-hospital care: Long-Term Practitioner: I am a practitioner with admitting privileges, knowledge of patient current condition, hospital course, and medical plan of care. Services: Services provided to patient in accordance with Admission requirements found in Title 42 Section 412.3 of the Code of Federal Regulations Patient History Date of Service: 02/04/22 Reason for admission: UTI, Lethargy, Hypoxia History of Present Illness: Patient is a 51-year-old female with history of A. fib on Eliquis, hypertension, CAD, CHF, hypertension, and insulin dependent type 2 diabetes who presented to the ED via EMS with complaints of UTI symptoms. EMS reports that patient had called them twice today because she had fallen out of bed. They found her to be covered in urine and feces. She reports that took xanax and gabapentin prior to EMS arrival. She was saturating 90% on RA upon arrival to ED. Her urine is positive for UTI. ABG with pH 7.35, pCO2, 54.5, pO2 62.4, bicarb 29. CT traumagram showed "Advanced for atrophy and chronic ischemic changes similar to the October 27 imaging. No acute intracranial finding. No acute cervical spine finding. Posterior lung base atelectasis with suspected minimal infiltrate in the right lower lobe." She was given rocephin and azithromycin in ED. ED provider wishes to admit patient for further evaluation and treatment. Allergies bacitracin [From Neosporin ([id number])] Allergy (Verified 10/30/21 06:56) Itching neomycin [From Neosporin ([id number])] Allergy (Verified 10/30/21 06:56) Itching polymyxin B [From Neosporin ([id number])] Allergy (Verified 10/30/21 06:56) Itching Home Medications: ALPRAZolam [Alprazolam] 1 mg PO BID 06/04/21 Nitroglycerin 0.4 mg SL PRN 06/04/21 Atorvastatin Calcium [Lipitor] 40 mg PO BEDTIME #30 tab 06/10/21 buPROPion HCL [Bupropion HCl Sr] 150 mg PO Q12H 06/22/21 Furosemide [Lasix] 20 mg PO DAILY #30 tablet 06/30/21 Apixaban [Eliquis] 5 mg PO BID #60 tablet 07/08/21 Aspirin [Aspirin EC] 81 mg PO DAILY 10/27/21 Gabapentin 300 mg PO BID 10/27/21 Midodrine HCl [Proamatine*] 10 mg PO TID #60 tab 11/11/21 Albuterol Neb [Proventil 0.083% Neb Soln] 2.5 mg NEB [id number] #60 amp 01/29/22 Azithromycin Tab [Zithromax*] 250 mg PO DAILY #5 tab 01/29/22 Benzonatate [Tessalon Perle*] 100 mg PO TID PRN #30 cap 01/29/22 Ipratropium Neb [Atrovent*] 0.5 mg NEB [id number] #60 amp 01/29/22 acetaZOLAMIDE [Diamox*] 250 mg PO DAILY #30 tab 01/29/22 predniSONE [Deltasone] 20 mg PO BID #11 tab 01/29/22 - Past Medical/Surgical History Diabetic: Yes -: Anxiety disorder -: Diabetes mellitus -: CAD/NC -: Hyperlipidemia -: Pulmonary Emboli -: CHF -: COPD -: HTN -: Afib -: adhesion removal -: tubal ligation -: Heart cath Psychosocial/ Personal History: Patient lives at home with her . - Family History Mother -: Lung disease, Cancer Notes: CA and COPD Father -: Diabetes, Stroke - Social History Smoking Status: Current every day smoker Alcohol use: No CD- Drugs: Yes Caffeine use: No Place of Residence: Home Review of Systems General: Weakness Genitourinary: Dysuria, Frequency, Urgency Physical Examination - Physical Exam General: Alert, In no apparent distress, Disheveled HEENT: Atraumatic, PERRLA, EOMI, Sclerae nonicteric Neck: Supple, 2+ carotid pulse no bruit, No LAD, Without JVD or thyroid abnormality Respiratory: Clear to auscultation bilaterally, Normal air movement Cardiovascular: Regular rate/rhythm, Normal S1 S2 Gastrointestinal: Normal bowel sounds, No tenderness Musculoskeletal: No tenderness Integumentary: No rashes Neurological: Normal speech, Normal strength at 5/5 x4 extr, Normal tone, Normal affect - Studies Laboratory Data (last 24 hrs) 02/03/22 21:06: PT 11.8, INR 1.07 02/03/22 21:06: WBC 7.20, Hgb 14.5, Hct 44.6, Plt Count 151 L 02/03/22 21:06: Sodium 146 H, Potassium 3.5, BUN 13, Creatinine 0.97, Glucose 119 H, Magnesium 2.3, Total Bilirubin 0.8, AST 25, ALT 53, Alkaline Phosphatase 82 Assessment and Plan - Problems (Diagnosis) (1) UTI (urinary tract infection) Current Visit: Yes Status: Acute Qualifiers: Urinary tract infection type: acute cystitis Hematuria presence: with hematuria Qualified Code(s): N30.01 - Acute cystitis with hematuria (2) Atrial fibrillation Current Visit: Yes Status: Chronic Qualifiers: Atrial fibrillation type: paroxysmal Qualified Code(s): I48.0 - Paroxysmal atrial fibrillation (3) Hypoxemia Current Visit: Yes Status: Acute (4) Type 2 diabetes mellitus Current Visit: Yes Status: Chronic Qualifiers: Diabetes mellitus chcf insulin use: with crop and soil scientist use Diabetes mellitus complication status: with kidney complications Diabetes mellitus complication detail: with chronic kidney disease Chronic kidney disease stage: stage 2 (mild) Qualified Code(s): E11.22 - Type 2 diabetes mellitus with diabetic chronic kidney disease; N18.2 - Chronic kidney disease, stage 2 (mild); Z79.4 - MCC (current) use of insulin (5) CHF (congestive heart failure) Current Visit: Yes Status: Chronic Qualifiers: Heart failure type: diastolic Heart failure chronicity: chronic Qualified Code(s): I50.32 - Chronic diastolic (congestive) heart failure (6) COPD (chronic obstructive pulmonary disease) Current Visit: Yes Status: Chronic Qualifiers: COPD type: unspecified COPD Qualified Code(s): J44.9 - Chronic obstructive pulmonary disease, unspecified (7) Hypertension Current Visit: Yes Status: Chronic Qualifiers: Hypertension type: primary hypertension Qualified Code(s): I10 - Essential (primary) hypertension - Plan -Continue azithromycin and rocephin for UTI and early pneumonia. Follow urine culture. Previous grew pansensitive ecoli. -Titrate O2 as necessary. Wean as tolerated. Breathing treatments PRN. Incentive spirometry. -Monitor pulse ox and telemetry. -technical services rep and physical therapy consults in place. -ACHS acuu-checks with mild sliding scale insulin and diabetic diet. -Gentle IV hydration. BNP not elevated. 1x albumin ordered. -Tobacco cessation counseling. -Monitor and replete electrolytes per protocol -Reconcile and continue home medications -Eliquis for VTE prophylaxis -Full code Discharge Plan: Home Plan to discharge in: Greater than 2 days - Advance Directives Does patient have a Living Will: No Does patient have a Durable POA for Healthcare: No - Code Status/Comfort Care Code Status Assessed: Yes (Full) Critical Care: No Time Spent Managing Pts Care (In Minutes): 50
[2022-02-04] MEDS ORDERED: ALBUMIN HUMAN 25% 100 ML IV ONE ×2 (01:42→01:57)
[2022-02-04] MEDS ORDERED: ONDANSETRON 4 MG/2 ML VIAL IV PRN (01:42)
[2022-02-04] MEDS: NA CHLORIDE 0.9% 1,000 ML IV SCH ×4 (01:42→20:29)
[2022-02-04] MEDS ORDERED: ALBUTEROL 2.5 MG/3 ML NEB SOL NEB PRN ×2 (01:42→15:00)
[2022-02-04] MEDS ORDERED: NA CHLORIDE 0.9% 1,000 ML ONE ×2 (01:57→08:06)
--- NOTE | 2022-02-04 03:25 | P.PN ---
Date of Service: 02/04/22 Was notified around 0245 that patient had become very lethargic and difficult to arouse. She was only waking up to painful stimuli-sternal rub. Her BP was noted to be low, 78/55 with repeat of 82/66. I ordered 25gram albumin and 500 mL bolus of NS. Patient became slightly more alert with sternal rub and removing her blankets. It was noted that she had her purse on the bed with her with her home meds ~open bottles~ in them, including 1mg xanax tabs. She has a history of taking her own meds without reporting. We had security take her purse to ensure she would not take any of her home medications without medical staff knowing, for her safety. She is saturating appropriately on 3L NC, HR is stable, and BP has improved to 101/61. Will continue to monitor patient closely and hold any sedating/blood pressure lowering medications.
[2022-02-04 04:57] VITALS: BMI 33.3
[2022-02-04 06:28] LABS: Absolute Lymphocytes (CBC) 0.7 K/uL (0.7-4.9); Hematocrit 41.5 % (36.0-45.0); Lymphocytes % 10.9 % (15.3-44.8); MPV 8.9 fL (7.6-11.3); RBC Red Blood Cell Count 3.83 M/uL (3.86-4.86)
[2022-02-04 06:32] LABS: MCV 108.3 fL (80-100)
[2022-02-04 06:38] LABS: Magnesium 2.2 mg/dL (1.8-2.4); Potassium 3.6 mmol/L (3.5-5.1)
[2022-02-04] MEDS: INSULIN -REGULAR HUMAN 50 UNIT/0.5 ML ML SQ SCH ×4 (07:28→21:00)
[2022-02-04] MEDS ORDERED: APIXABAN 5 MG TABLET ONE (08:05)
[2022-02-04] MEDS ORDERED: AZITHROMYCIN 500 MG INJ IVPB ONE (08:06)
[2022-02-04] MEDS ORDERED: NA CHLORIDE 0.9% 250 ML ONE (08:06)
[2022-02-04] MEDS: CEFTRIAXONE 1,000 MG in NA CHLORIDE 0.9% 50 ML IVPB SCH (08:10)
[2022-02-04] MEDS ORDERED: CEFTRIAXONE 1000 MG/VIAL ONE (08:12)
[2022-02-04] MEDS: APIXABAN 5 MG TABLET PO SCH ×2 (08:13→20:24)
[2022-02-04] MEDS: AZITHROMYCIN IV 500 MG in NA CHLORIDE 0.9% 250 ML IVPB SCH (08:14)
[2022-02-04] MEDS: MIDODRINE HCL 5 MG TABLET PO SCH ×3 (08:43→20:24)
--- NOTE | 2022-02-04 14:09 | EKG ---
Test Date: 2022-02-03 Test Time: 18:42:01 Wood Block Artist: FERNANDO MEASUREMENT RESULTS: Intervals: Rate: 82 [place]: 210 QRSD: 140 QT: 442 QTc: 516 [place]: P: 63 [place]: 210 QRS: -50 T: -65 INTERPRETIVE STATEMENTS: Sinus rhythm with 1st degree AV block Left axis deviation Right bundle branch block Septal infarct, age undetermined Abnormal ECG Compared to ECG 01/20/2022 11:50:30 First degree AV block now present Right bundle-branch block now present Myocardial infarct finding still present Electronically Signed On 02-04-22 14:08:11 CDT by Riley Kaplan
--- NOTE | 2022-02-04 17:33 | P.PN ---
Date of Service: 02/04/22 Patient still somnolent and lethargic. Blood pressure has improved. She is on 2 L oxygen by nasal cannula. No recorded fever. Diagnosis: Acute metabolic encephalopathy. Polypharmacy UTI THC abuse. Possible pneumonia Hypernatremia Plan: Continue antibiotics. Follow cultures Hold all psychotropic medications. IV hydration with half-normal saline. Monitor BMP.
[2022-02-04] MEDS: ACETAMINOPHEN 500 MG TAB PO PRN (20:25)
--- NOTE | 2022-02-04 21:31 | P.PN ---
Date of Service: 02/05/22 Subjective: somnolent but arousable this morning more awake/alert this afternoon, reported left foot pain ROS: 10 point ROS as noted above, otherwise negative Physical Exam: Gen: somnolent, arousable, oriented x3 HEENT: normal conjunctiva, sclera anicteric CV: regular rate & rhythm, trace bilateral pedal edema Pulm: non-labored respirations, clear bilaterally Abd: soft, non-tender, non-distended MSK: L foot: anterior tenderness, no ecchymosis, no discoloration, no erythema; normal ROM of ankle Neuro: somnolent but arousable, follows commands, moves all extremities vitals reviewed Problem List Acute metabolic encephalopathy secondary to polypharmacy and UTI UTI h/o THC abuse. Possible pneumonia Hypernatremia Chronic COPD Afib, paroxysmal on eliquis CAD IDDM2 CHF, diastolic (HFpEF) HTN continue rocephin/azithro for possible pneumonia, covers UTI as well imaging less suggestive of pneumonia, recently hospitalized and had RLL atelectasis which improved monitor vitals f/u urine cultures acute encephalopathy secondary to polypharmacy, patient likely took her home meds here; known history of doing this. Home meds confiscated from purse slowly improving as medication wears off Wean O2 as tolerated, IS administrative services officer and PT consulted continue sliding scale, diabetic diet continue home kojo Avila foot x-ray ordered VTE: kojo Cori: full Dispo: home, ~2 days Time Spent Managing Pts Care (In Minutes): 35
[2022-02-05] MEDS ORDERED: MELATONIN 5 MG TABLET PO PRN (00:30)
[2022-02-05 06:14] LABS: Absolute Lymphocytes (CBC) 0.6 K/uL (0.7-4.9); Hematocrit 39.8 % (36.0-45.0); Lymphocytes % 19.2 % (15.3-44.8); MCV 107.2 fL (80-100); MPV 9.2 fL (7.6-11.3); RBC Red Blood Cell Count 3.72 M/uL (3.86-4.86)
[2022-02-05 06:35] LABS: Magnesium 2.1 mg/dL (1.8-2.4); Potassium 3.5 mmol/L (3.5-5.1)
[2022-02-05] MEDS ORDERED: NA CHLORIDE 0.9% 1,000 ML IV SCH (06:45)
[2022-02-05] MEDS: INSULIN -REGULAR HUMAN 50 UNIT/0.5 ML ML SQ SCH ×4 (07:30→21:15)
[2022-02-05] MEDS: POTASSIUM CL SA 10 MEQ TAB PO ONE ×2 (09:00→14:32)
[2022-02-05] MEDS: APIXABAN 5 MG TABLET PO SCH ×2 (09:00→21:05)
[2022-02-05] MEDS: MIDODRINE HCL 5 MG TABLET PO SCH ×3 (09:00→21:06)
[2022-02-05] MEDS: CEFTRIAXONE 1,000 MG in NA CHLORIDE 0.9% 50 ML IVPB SCH (09:39)
[2022-02-05] MEDS: AZITHROMYCIN IV 500 MG in NA CHLORIDE 0.9% 250 ML IVPB SCH (09:40)
--- NOTE | 2022-02-05 17:54 | RAD REPORT ---
EXAM DESCRIPTION: RAD - Foot Left 3 View - 02/05/2022 5:43 pm CLINICAL HISTORY: Left Foot pain FINDINGS: No fracture or dislocation is seen. No significant bone or joint abnormality noted
[2022-02-05] MEDS: ACETAMINOPHEN 500 MG TAB PO PRN (21:06)
[2022-02-06 04:32] VITALS: BP 131/60; TEMP 96.9
[2022-02-06 06:04] LABS: Absolute Lymphocytes (CBC) 0.7 K/uL (0.7-4.9); Hematocrit 41.2 % (36.0-45.0); Lymphocytes % 16.9 % (15.3-44.8); MCV 107.1 fL (80-100); MPV 8.7 fL (7.6-11.3); RBC Red Blood Cell Count 3.85 M/uL (3.86-4.86)
[2022-02-06 06:14] LABS: Magnesium 2.2 mg/dL (1.8-2.4); Potassium 3.7 mmol/L (3.5-5.1)
[2022-02-06] MEDS: INSULIN -REGULAR HUMAN 50 UNIT/0.5 ML ML SQ SCH (07:30)
[2022-02-06] MEDS ORDERED: AZITHROMYCIN 250 MG TAB PO SCH (09:00)
[2022-02-06] MEDS ORDERED: POTASSIUM CL SA 10 MEQ TAB PO ONE (09:00)
[2022-02-06] MEDS: APIXABAN 5 MG TABLET PO SCH (09:01)
[2022-02-06] MEDS: CEFTRIAXONE 1,000 MG in NA CHLORIDE 0.9% 50 ML IVPB SCH (09:01)
[2022-02-06] MEDS: MIDODRINE HCL 5 MG TABLET PO SCH (09:01)
[2022-02-06 09:14] VITALS: O2SAT 90
--- NOTE | 2022-02-06 21:30 | P.DS ---
Admission Date: 02/04/22 Discharge Date: 02/06/22 Disposition: ROUTINE DISCHARGE Discharge Condition: FAIR Reason for Admission: UTI, Lethargy, Hypoxia Brief History of Present Illness: 51-year-old female with history of A. fib on Eliquis, hypertension, CAD, CHF, hypertension, and insulin dependent type 2 diabetes Presented to ED via EMS due to UTI symptoms, fall at home. EMS reportedly found patient to be covered in urine and feces. She reports that took xanax and gabapentin prior to EMS arrival. She was saturating 90% on RA upon arrival to ED. Her urine is positive for UTI. ABG with pH 7.35, pCO2, 54.5, pO2 62.4, bicarb 29. CT traumagram showed "Advanced for atrophy and chronic ischemic changes similar to the October 27 imaging. No acute intracranial finding. No acute cervical spine finding. Posterior lung base atelectasis with suspected minimal infiltrate in the right lower lobe." She was given rocephin and azithromycin in ED. ED provider wishes to admit patient for further evaluation and treatment. Problem List Acute metabolic encephalopathy secondary to polypharmacy and UTI UTI h/o THC abuse. Hypernatremia Chronic COPD Afib, paroxysmal on eliquis CAD IDDM2 CHF, diastolic (HFpEF) HTN Hospital Course: Patient presented with UTI symptoms and afterr falls at home. She was found to have oxygen saturation at 90% on room air, somnolent, and a UTI. She had improvement of IV antibiotics. Urine culture grew proteus. Blood cultures were negative. She remained afebrile and vital signs remained normal and stable. She took her home dose of xanax and gabapentin prior to EMS arrival, again in the hospital from her purse. She was noted to be somnolent for the first ~24hrs, arousable, but would go back to sleep. This resolved as well. Xanax was held. Discussed risks of Xanax and Gabapentin leading to less responsiveness, worsening of likely sleep apnea; especially during an infection. Recommended to decrease dose by at least half if she is going to continue taking these medications at home. Discharged with Levaquin for 1 week Follow up with PCP within [address] head, neck, chest, abdomen, pelvis without any acute findings. She reported left foot pain. X-ray was negative for fracture, and there was no swelling or bruising. She may have sprained her foot / injured during one of the falls She was able to ambulate to the bathroom / around her room safely. Physical Exam: Gen: awake, alert, orientedx3 HEENT: normal conjunctiva, sclera anicteric CV: regular rate & rhythm, trace bilateral pedal edema Pulm: non-labored respirations, clear bilaterally Abd: soft, non-tender, non-distended MSK: L foot: dorsal tenderness, no ecchymosis, no discoloration, no erythema; normal ROM of ankle Neuro: AOx3, str 5/5 bilaterally Vital Signs/Physical Exam: Temp Pulse Resp BP Pulse Ox 96.9 F 75 18 131/60 90 L 02/06/22 04:00 02/06/22 04:00 02/06/22 04:00 02/06/22 04:00 02/06/22 08:57 Laboratory Data at Discharge: WBC 4.20 K/uL (4.3-10.9) L 02/06/22 05:51 Hgb 13.3 g/dL (12.0-15.0) 02/06/22 05:51 Hct 41.2 % (36.0-45.0) 02/06/22 05:51 Plt Count 137 K/uL (152-406) L 02/06/22 05:51 PT 11.8 SECONDS (9.5-12.5) 02/03/22 21:06 INR 1.07 02/03/22 21:06 Sodium 146 mmol/L (136-145) H 02/06/22 05:51 Potassium 3.7 mmol/L (3.5-5.1) 02/06/22 05:51 BUN 4 mg/dL (7-18) L 02/06/22 05:51 Creatinine 0.70 mg/dL (0.55-1.3) 02/06/22 05:51 Glucose 125 mg/dL (74-106) H 02/06/22 05:51 Magnesium 2.2 mg/dL (1.8-2.4) 02/06/22 05:51 Total Bilirubin 0.8 mg/dL (0.2-1.0) 02/03/22 21:06 AST 25 U/L (15-37) 02/03/22 21:06 ALT 53 U/L (12-78) 02/03/22 21:06 Alkaline Phosphatase 82 U/L (45-117) 02/03/22 21:06 Home Medications: ALPRAZolam [Alprazolam] 1 mg PO BID 06/04/21 Nitroglycerin 0.4 mg SL PRN 06/04/21 Atorvastatin Calcium [Lipitor] 40 mg PO BEDTIME #30 tab 06/10/21 buPROPion HCL [Bupropion HCl Sr] 150 mg PO Q12H 06/22/21 Furosemide [Lasix] 20 mg PO DAILY #30 tablet 06/30/21 Apixaban [Eliquis] 5 mg PO BID #60 tablet 07/08/21 Aspirin [Aspirin EC] 81 mg PO DAILY 10/27/21 Gabapentin 300 mg PO BID 10/27/21 Midodrine HCl [Proamatine*] 10 mg PO TID #60 tab 11/11/21 Albuterol Neb [Proventil 0.083% Neb Soln] 2.5 mg NEB [id number] #60 amp 01/29/22 Ipratropium Neb [Atrovent*] 0.5 mg NEB [id number] #60 amp 01/29/22 acetaZOLAMIDE [Diamox*] 250 mg PO DAILY #30 tab 01/29/22 levoFLOXacin [Levaquin] 750 mg PO DAILY 7 Days #7 tab 02/06/22 New Medications: levoFLOXacin [Levaquin] 750 mg PO DAILY 7 Days #7 tab Physician Discharge Instructions: Patient presented with UTI symptoms and afterr falls at home. She was found to have oxygen saturation at 90% on room air, somnolent, and a UTI. She had improvement of IV antibiotics. Urine culture grew proteus. Blood cultures were negative. She remained afebrile and vital signs remained normal and stable. She took her home dose of xanax and gabapentin prior to EMS arrival, again in the hospital from her purse. She was noted to be somnolent for the first ~24hrs, arousable, but would go back to sleep. This resolved as well. Xanax was held. Discussed risks of Xanax and Gabapentin leading to less responsiveness, worsening of likely sleep apnea; especially during an infection. Recommended to decrease dose by at least half if she is going to continue taking these medications at home. Discharged with Levaquin for 1 week Follow up with PCP within [address] head, neck, chest, abdomen, pelvis without any acute findings. She reported left foot pain. X-ray was negative for fracture, and there was no swelling or bruising. She may have sprained her foot / injured during one of the falls She was able to ambulate to the bathroom / around her room safely. Followup: NONE,NONE [Primary Care Provider] - Time spent managing pt's care (in minutes): 45
== END 2022-02-06 11:55 | disposition home or self-care (01) | DRG 689 ==
LOC: ER 17:31 → ERHOLD 02-04 00:14 → 4TH 02-04 09:22
PROVIDERS: ADMIT Internal Medicine; ATTEND Hospitalist
DX: N30.01 Acute cystitis with hematuria (principal); G92.8 Other toxic encephalopathy; E87.0 Hyperosmolality and hypernatremia; I50.32 Chronic diastolic (congestive) heart failure; I13.0 Hypertensive heart and chronic kidney disease with heart failure and stage 1 through stage 4 chronic kidney disease, or unspecified chronic kidney disease; N18.2 Chronic kidney disease, stage 2 (mild); E11.22 Type 2 diabetes mellitus with diabetic chronic kidney disease; I48.0 Paroxysmal atrial fibrillation; J44.9 Chronic obstructive pulmonary disease, unspecified; E78.5 Hyperlipidemia, unspecified; I25.10 Atherosclerotic heart disease of native coronary artery without angina pectoris; F12.10 Cannabis abuse, uncomplicated; I25.2 Old myocardial infarction; T50.915A Adverse effect of multiple unspecified drugs, medicaments and biological substances, initial encounter; F17.210 Nicotine dependence, cigarettes, uncomplicated; B96.4 Proteus (mirabilis) (morganii) as the cause of diseases classified elsewhere; R09.02 Hypoxemia; Z88.1 Allergy status to other antibiotic agents; Z79.4 Long term (current) use of insulin; Z88.8 Allergy status to other drugs, medicaments and biological substances; Z79.52 Long term (current) use of systemic steroids; Z79.82 Long term (current) use of aspirin; Z79.01 Long term (current) use of anticoagulants; Z98.51 Tubal ligation status; Z79.899 Other long term (current) drug therapy; Z86.711 Personal history of pulmonary embolism; Z20.822 Contact with and (suspected) exposure to COVID-19
CPT/HCPCS: 36415; 70450; 71045; 71260; 72125; 74177; 80048; 80076; 80307; 81003; 81015; 81025; 82565; 82805; 82947; 83605; 83735; 83880; 84145; 84484; 85025; 85610; 87040; 87077; 87086; 87088; 87186; 87811; 93005; 94760; 96365; 96375; 97116; 97161; 97530; 99285; J0456; J1815; J7030; J7050; P9047; Q9967